=== PATIENT | male | born 1965 | race Caucasian/White ===

== ENCOUNTER 2018-01-24 20:14 | Inpatient (IN) | payer MEDICARE, OTHER ==
[2018-01-24] MEDS ORDERED: VANCOMYCIN IV PER PHARMACY XX (22:00)
[2018-01-24] MEDS ORDERED: oxyCODONE (CR) 10 MG TAB [oxyCONTIN] PO (22:00)
[2018-01-24] MEDS ORDERED: GLUCAGON 1 MG INJ IM (22:30)
[2018-01-24] MEDS ORDERED: DEXTROSE 50% 50 ML SYRINGE IV (22:30)
[2018-01-24] MEDS ORDERED: GLUCOSE GEL 15 GRAM TUBE PO ×2 (22:30)
[2018-01-24] MEDS ORDERED: GLUCOSE GEL 15 GRAM TUBE BUCCAL (22:30)
[2018-01-24] MEDS: MEROPENEM 1 GM/50ML(PMX) 50 ML IVPB (23:15)
[2018-01-24] MEDS: INSULIN ASPART [NOVOLOG] 3 ML PEN SC (23:21)
[2018-01-24 23:54] LABS: CREATININE 0.95 mg/dl (0.61-1.24)
[2018-01-24 23:54] LABS: BLOOD UREA NITROGEN 36 mg/dl (7-20)
[2018-01-25] MEDS: VANCOMYCIN 1.25 GM in SOD CHLORIDE 0.9% 250 ML IVPB (00:23)
[2018-01-25] MEDS: oxyCODONE 5 MG TAB PO ×4 (01:53→16:20)
[2018-01-25] MEDS: ACCU-CHEK XX (02:00)
[2018-01-25] MEDS: MEROPENEM 1 GM/50ML(PMX) 50 ML IVPB ×3 (05:36→21:06)
[2018-01-25 05:42] LABS: ADD MAN DIFF? NO
[2018-01-25 05:54] LABS: WHITE BLOOD COUNT 14.1 10^3/ul (4.8-10.8)
[2018-01-25 05:54] LABS: BASOPHILS % 0.1 % (0.0-2.0); HEMATOCRIT 25.8 % (42.0-52.0); HEMOGLOBIN 8.5 g/dl (14.0-18.0); LYMPHOCYTES % 14.4 % (15.0-51.0); MEAN CORPUSCULAR HEMOGLOBIN 24.9 pg (29.0-33.0); MEAN CORPUSCULAR HGB CONC 32.9 g/dl (32.0-37.0); MEAN CORPUSCULAR VOLUME 75.4 fl (82.0-101.0); MEAN PLATELET VOLUME 8.8 fl (7.4-10.4); MONOCYTE # 0.7 10^3/ul (0.3-0.9); MONOCYTES % 5.2 % (0.0-11.0); NEUTROPHIL # 11.3 10^3/ul (1.6-7.5); NEUTROPHILS % 79.7 % (39.0-77.0); PLATELET COUNT 439 10^3/UL (140-415); RED BLOOD COUNT 3.42 10^6/ul (4.70-6.10); RED CELL DISTRIBUTION WIDTH 16.4 % (11.5-14.5)
[2018-01-25 05:55] LABS: HEMOGLOBIN A1C 8.2 % (0-5.9)
[2018-01-25 05:59] LABS: ALANINE AMINOTRANSFERASE 19 IU/L (13-69); ALBUMIN 2.7 g/dl (3.3-4.9); ALBUMIN/GLOBULIN RATIO 0.58; ALKALINE PHOSPHATASE 112 IU/L (42-121); ANION GAP 13 (8-16); ASPARTATE AMINO TRANSFERASE 13 IU/L (15-46); BILIRUBIN,INDIRECT 0.1 mg/dl (0-1.1); BILIRUBIN,TOTAL 0.1 mg/dl (0.2-1.3); BLOOD UREA NITROGEN 35 mg/dl (7-20); CALCIUM 8.6 mg/dl (8.4-10.2); CARBON DIOXIDE 28 mmol/L (21-31); CHLORIDE 97 mmol/L (97-110); CREATININE 0.96 mg/dl (0.61-1.24); GLUCOSE 193 mg/dl (70-220); POTASSIUM 4.8 mmol/L (3.5-5.1); SODIUM 133 mmol/L (135-144); TOTAL PROTEIN 7.3 g/dl (6.1-8.1)
[2018-01-25 06:05] LABS: INR 1.15; PROTIME 14.9 Sec (11.9-14.9); PT RATIO 1.2
[2018-01-25] MEDS: INSULIN ASPART [NOVOLOG] 3 ML PEN SC ×4 (08:44→21:00)
[2018-01-25] MEDS ORDERED: SOD CHLORIDE 0.45% 1,000 ML IV (11:30)
[2018-01-25] MEDS ORDERED: VANCOMYCIN 750 MG in SOD CHLORIDE 0.9% 150 ML IVPB (12:00)
[2018-01-25] MEDS: SOD CHLORIDE 0.9% 1,000 ML IV (12:12)
[2018-01-25] MEDS: ENOXAPARIN 40 MG/0.4 ML SYG SC (12:21)
[2018-01-25] MEDS: VANCOMYCIN 1 GM 250 ML IVPB ×2 (12:37→23:35)
[2018-01-25] MEDS: LEVALBUTEROL (NEB) 0.63 MG/3 ML AMP HHN ×2 (16:07→23:39)
[2018-01-25] MEDS: metFORMIN 500 MG TAB PO (19:30)
[2018-01-25] MEDS: ONDANSETRON 4 MG INJ IV (21:06)
[2018-01-25 23:15] LABS: ADD UMIC YES; UR ASCORBIC ACID NEGATIVE (NEGATIVE); UR BILIRUBIN (Dip) NEGATIVE (NEGATIVE); UR BLOOD (Dip) 2+ mg/dL (NEGATIVE); UR CLARITY CLEAR (CLEAR); UR COLOR YELLOW (YELLOW); UR GLUCOSE (Dip) NEGATIVE (NEGATIVE); UR KETONES (Dip) NEGATIVE (NEGATIVE); UR LEUKOCYTE ESTERASE (Dip) 1+ Leu/ul (NEGATIVE); UR MUCUS FEW /HPF (NONE SEEN); UR NITRITE (Dip) NEGATIVE (NEGATIVE); UR RBC 18 /HPF (0-5); UR SPECIFIC GRAVITY (Dip) 1.019 (1.003-1.030); UR TOTAL PROTEIN (Dip) NEGATIVE (NEGATIVE); UR UROBILINOGEN (Dip) 1+ mg/dL (NEGATIVE); UR WBC 25 /HPF (0-5)
[2018-01-26] MEDS: ACCU-CHEK XX (01:00)
[2018-01-26] MEDS: oxyCODONE 5 MG TAB PO ×2 (01:40→09:18)
[2018-01-26] MEDS: SOD CHLORIDE 0.9% 1,000 ML IV ×3 (04:10→20:32)
[2018-01-26] MEDS: MEROPENEM 1 GM/50ML(PMX) 50 ML IVPB ×3 (05:06→22:15)
[2018-01-26 06:12] LABS: ADD MAN DIFF? NO; HAAIG REFLEX REFLEX FILED
[2018-01-26 06:20] LABS: EOSINOPHILS % 0.2 % (0.0-7.0); HEMATOCRIT 26.2 % (42.0-52.0); HEMOGLOBIN 8.6 g/dl (14.0-18.0); LYMPHOCYTES # 2.1 10^3/ul (0.8-2.9); LYMPHOCYTES % 17.4 % (15.0-51.0); MEAN CORPUSCULAR HEMOGLOBIN 24.6 pg (29.0-33.0); MEAN CORPUSCULAR HGB CONC 32.8 g/dl (32.0-37.0); MEAN CORPUSCULAR VOLUME 75.1 fl (82.0-101.0); MEAN PLATELET VOLUME 8.8 fl (7.4-10.4); MONOCYTE # 0.9 10^3/ul (0.3-0.9); MONOCYTES % 7.2 % (0.0-11.0); NEUTROPHIL # 9.1 10^3/ul (1.6-7.5); NEUTROPHILS % 74.7 % (39.0-77.0); PLATELET COUNT 371 10^3/UL (140-415); RED BLOOD COUNT 3.49 10^6/ul (4.70-6.10); RED CELL DISTRIBUTION WIDTH 16.3 % (11.5-14.5)
[2018-01-26 06:20] LABS: WHITE BLOOD COUNT 12.1 10^3/ul (4.8-10.8)
[2018-01-26 07:13] LABS: ALANINE AMINOTRANSFERASE 26 IU/L (13-69); ALBUMIN 2.7 g/dl (3.3-4.9); ALKALINE PHOSPHATASE 130 IU/L (42-121); ASPARTATE AMINO TRANSFERASE 24 IU/L (15-46); BILIRUBIN,INDIRECT 0.2 mg/dl (0-1.1); BILIRUBIN,TOTAL 0.2 mg/dl (0.2-1.3); TOTAL PROTEIN 7.3 g/dl (6.1-8.1)
[2018-01-26 07:18] LABS: ALANINE AMINOTRANSFERASE 26 IU/L (13-69); ALBUMIN 2.7 g/dl (3.3-4.9); ALBUMIN/GLOBULIN RATIO 0.58; ALKALINE PHOSPHATASE 119 IU/L (42-121); ANION GAP 14 (8-16); ASPARTATE AMINO TRANSFERASE 22 IU/L (15-46); BILIRUBIN,INDIRECT 0.2 mg/dl (0-1.1); BILIRUBIN,TOTAL 0.2 mg/dl (0.2-1.3); BLOOD UREA NITROGEN 32 mg/dl (7-20); CALCIUM 8.4 mg/dl (8.4-10.2); CARBON DIOXIDE 26 mmol/L (21-31); CHLORIDE 94 mmol/L (97-110); CHOL/HDL RATIO 7.9 RATIO; CHOLESTEROL 127 mg/dl (100-200); CREATININE 0.94 mg/dl (0.61-1.24); GLUCOSE 61 mg/dl (70-220); HDL CHOLESTEROL 16 mg/dl (28-71); LDL CHOLESTEROL,CALCULATED 90 mg/dl; LIPASE 68 U/L (23-300); POTASSIUM 4.6 mmol/L (3.5-5.1); SODIUM 129 mmol/L (135-144); TOTAL PROTEIN 7.3 g/dl (6.1-8.1); TRIGLYCERIDES 107 mg/dl (0-149)
[2018-01-26 07:39] LABS: HEPATITIS B SURFACE ANTIGEN NEGATIVE (NEGATIVE)
[2018-01-26 07:57] LABS: HEPATITIS B CORE ANTIBODY REACTIVE (NEGATIVE)
[2018-01-26 08:01] LABS: HEPATITIS C VIRAL ANTIBODY REACTIVE (NEGATIVE); HIV 1&2 ANTIBODY NEGATIVE (NEGATIVE)
[2018-01-26] MEDS: metFORMIN 500 MG TAB PO ×2 (08:05→17:23)
[2018-01-26] MEDS: LEVALBUTEROL (NEB) 0.63 MG/3 ML AMP HHN ×3 (08:10→23:12)
[2018-01-26] MEDS: INSULIN ASPART [NOVOLOG] 3 ML PEN SC ×4 (08:15→20:32)
[2018-01-26] MEDS: INSULIN GLARGINE [LANtus] 3 ML PEN SC (08:26)
[2018-01-26] MEDS: ENOXAPARIN 40 MG/0.4 ML SYG SC (08:26)
[2018-01-26 08:53] LABS: ERYTHROCYTE SEDIMENTATION RATE 103 mm/Hr (0-20)
[2018-01-26] MEDS: ONDANSETRON 4 MG INJ IV (09:49)
[2018-01-26] MEDS: METHADONE (1 MG/1 ML PO SYG) PO (10:37)
[2018-01-26] MEDS: VANCOMYCIN 1 GM 250 ML IVPB (12:00)
[2018-01-27] MEDS: VANCOMYCIN 1.25 GM in SOD CHLORIDE 0.9% 250 ML IVPB ×2 (00:24→11:48)
[2018-01-27] MEDS: DEXTROSE 5%-0.45% NACL 1,000 ML IV ×2 (00:24→13:20)
[2018-01-27] MEDS: ACCU-CHEK XX (01:55)
[2018-01-27] MEDS: HYDROmorphONE 1 MG/ML SYG IV ×6 (04:02→22:02)
[2018-01-27] MEDS: MEROPENEM 1 GM/50ML(PMX) 50 ML IVPB ×3 (05:23→23:50)
[2018-01-27 06:20] LABS: ADD MAN DIFF? NO
[2018-01-27 06:29] LABS: BASOPHILS % 0.1 % (0.0-2.0); EOSINOPHILS # 0.1 10^3/ul (0.0-0.5); EOSINOPHILS % 0.9 % (0.0-7.0); HEMATOCRIT 27.9 % (42.0-52.0); HEMOGLOBIN 9.1 g/dl (14.0-18.0); LYMPHOCYTES # 2.3 10^3/ul (0.8-2.9); LYMPHOCYTES % 20.8 % (15.0-51.0); MEAN CORPUSCULAR HEMOGLOBIN 24.6 pg (29.0-33.0); MEAN CORPUSCULAR HGB CONC 32.6 g/dl (32.0-37.0); MEAN CORPUSCULAR VOLUME 75.4 fl (82.0-101.0); MEAN PLATELET VOLUME 8.5 fl (7.4-10.4); MONOCYTES % 9.2 % (0.0-11.0); NEUTROPHIL # 7.4 10^3/ul (1.6-7.5); NEUTROPHILS % 68.2 % (39.0-77.0); PLATELET COUNT 426 10^3/UL (140-415); RED CELL DISTRIBUTION WIDTH 15.9 % (11.5-14.5)
[2018-01-27 06:29] LABS: WHITE BLOOD COUNT 10.9 10^3/ul (4.8-10.8)
[2018-01-27 06:47] LABS: INR 1.09; PROTIME 14.2 Sec (11.9-14.9); PT RATIO 1.1
[2018-01-27 06:52] LABS: ANION GAP 14 (8-16); BLOOD UREA NITROGEN 28 mg/dl (7-20); CALCIUM 8.6 mg/dl (8.4-10.2); CARBON DIOXIDE 27 mmol/L (21-31); CHLORIDE 94 mmol/L (97-110); GLUCOSE 76 mg/dl (70-220); POTASSIUM 4.1 mmol/L (3.5-5.1); SODIUM 131 mmol/L (135-144)
[2018-01-27] MEDS ORDERED: PHENYLephrine (100 MCG/ML) 10ML SYG (07:00)
[2018-01-27 07:54] LABS: HEPATITIS B SURFACE ANTIBODY POSITIVE (NEGATIVE)
[2018-01-27] MEDS: LEVALBUTEROL (NEB) 0.63 MG/3 ML AMP HHN ×2 (07:57→17:04)
[2018-01-27] MEDS: metFORMIN 500 MG TAB PO ×2 (08:05→17:50)
[2018-01-27] MEDS: METHADONE (1 MG/1 ML PO SYG) PO (09:00)
[2018-01-27] MEDS: LINAGLIPTIN 5 MG TABLET PO (09:00)
[2018-01-27] MEDS: ENOXAPARIN 40 MG/0.4 ML SYG SC (09:00)
[2018-01-27] MEDS: INSULIN ASPART [NOVOLOG] 3 ML PEN SC ×4 (09:56→21:00)
[2018-01-27] MEDS ORDERED: ROPIVACAINE 0.5 % 30 ML VIAL (14:18)
[2018-01-27] MEDS: ONDANSETRON 4 MG INJ IV (16:02)
[2018-01-27] MEDS ORDERED: PROPOFOL 20 ML (17:54)
[2018-01-27] MEDS ORDERED: ROCURONIUM 50 MG INJ ×2 (17:54→21:03)
[2018-01-27] MEDS ORDERED: CEFAZOLIN 1 GM INJ (17:54)
[2018-01-27] MEDS ORDERED: MIDAZOLAM 1 MG/ML 2 ML INJ (17:55)
[2018-01-27] MEDS ORDERED: HYDROmorphONE 2 MG/ML SYG (17:55)
[2018-01-27] MEDS ORDERED: SUCCINYLCHOLINE CHLORIDE 100 MG/5 ML SYG IV (18:24)
[2018-01-27] MEDS: THROMBIN 5000 UNIT VIAL ×2 (19:41→19:42)
[2018-01-27] MEDS: GELATIN SIZE 100 SPONGE (19:41)
[2018-01-27] MEDS: HEMOSTATIC MATRIX SYG ZFS (19:42)
[2018-01-27] MEDS: POLYMYXIN/BACITRACIN 1L IRRIG (19:42)
[2018-01-27] MEDS ORDERED: ALBUMIN HUMAN 5% 500 ML (20:29)
[2018-01-27] MEDS ORDERED: ACETAMINOPHEN 1000MG/100ML IV 100 ML (20:30)
[2018-01-27] MEDS ORDERED: METOCLOPRAMIDE 10 MG INJ (20:30)
[2018-01-27] MEDS ORDERED: DEXAMETHASONE 4 MG/ML 1 ML INJ (20:30)
[2018-01-27] MEDS ORDERED: ONDANSETRON 4 MG INJ (20:30)
[2018-01-27] MEDS ORDERED: SUGAMMADEX SODIUM 200 MG/2 ML VIAL IV (21:03)
[2018-01-27] MEDS: ROPIVACAINE 0.5 % 30 ML VIAL ×2 (21:25)
[2018-01-27] MEDS ORDERED: NALOXONE (0.4 MG/ML) INJ IV (21:30)
[2018-01-27] MEDS ORDERED: NACL 0.9% 3 ML SYG IV (21:30)
[2018-01-27] MEDS ORDERED: EPHEDrine SULFATE 50 MG/5 ML SYG IV (21:30)
[2018-01-27] MEDS ORDERED: ONDANSETRON 4 MG INJ IV (21:30)
[2018-01-27] MEDS ORDERED: MEPERIDINE 25 MG INJ IV (21:30)
[2018-01-27] MEDS ORDERED: LABETALOL HCL 20MG INJ IV (21:30)
[2018-01-27] MEDS ORDERED: HYDROmorphONE 1 MG/5 ML IV SYRINGE IV ×3 (21:30)
[2018-01-27] MEDS ORDERED: hydrALAzine 20 MG INJ IV (21:30)
[2018-01-27] MEDS: DOCUSATE SODIUM 100 MG CAP PO (21:30)
[2018-01-27] MEDS ORDERED: ALBUMIN HUMAN 5% 250 ML IV (21:30)
[2018-01-27] MEDS ORDERED: METOCLOPRAMIDE 10 MG INJ IV (21:30)
[2018-01-27] MEDS ORDERED: FENTAnyl 50 MCG/ML VIAL IV ×3 (21:30)
[2018-01-28] MEDS: VANCOMYCIN 1.25 GM in SOD CHLORIDE 0.9% 250 ML IVPB ×2 (00:13→14:15)
[2018-01-28] MEDS: DIPHENHYDRAMINE 50 MG INJ IV (00:13)
[2018-01-28] MEDS: LEVALBUTEROL (NEB) 0.63 MG/3 ML AMP HHN ×4 (00:40→21:34)
[2018-01-28] MEDS ORDERED: ACCU-CHEK XX (02:00)
[2018-01-28] MEDS: NS + KCL 20 MEQ 1,000 ML IV ×4 (02:27→19:09)
[2018-01-28] MEDS: INSULIN ASPART [NOVOLOG] 3 ML PEN SC ×7 (02:35→20:28)
[2018-01-28] MEDS: ACCU-CHEK XX (02:36)
[2018-01-28] MEDS: MEROPENEM 1 GM/50ML(PMX) 50 ML IVPB ×3 (05:11→21:23)
[2018-01-28 05:52] LABS: HEMATOCRIT 24.8 % (42.0-52.0); HEMOGLOBIN 8.1 g/dl (14.0-18.0)
[2018-01-28 06:32] LABS: ANION GAP 13 (8-16); BLOOD UREA NITROGEN 27 mg/dl (7-20); CARBON DIOXIDE 26 mmol/L (21-31); CHLORIDE 98 mmol/L (97-110); CREATININE 0.74 mg/dl (0.61-1.24); GLUCOSE 240 mg/dl (70-220); POTASSIUM 4.6 mmol/L (3.5-5.1); SODIUM 132 mmol/L (135-144)
[2018-01-28 07:22] LABS: HEPATITIS B CORE ANTIBODY REACTIVE (NEGATIVE); HEPATITIS B SURFACE ANTIBODY POSITIVE (NEGATIVE)
[2018-01-28] MEDS: DOCUSATE SODIUM 100 MG CAP PO ×2 (08:24→20:23)
[2018-01-28] MEDS: ENOXAPARIN 40 MG/0.4 ML SYG SC (08:27)
[2018-01-28] MEDS: LINAGLIPTIN 5 MG TABLET PO (08:42)
[2018-01-28] MEDS: metFORMIN 500 MG TAB PO ×3 (08:42→17:55)
[2018-01-28] MEDS: METHADONE (1 MG/1 ML PO SYG) PO (09:33)
[2018-01-28 13:56] LABS: NIL 0.03 IU/mL; QUANTIFERON(R)-TB GOLD NEGATIVE (NEGATIVE); TB-NIL 0.01 IU/mL
[2018-01-28 18:53] LABS: HEMATOCRIT 25.8 % (42.0-52.0); HEMOGLOBIN 8.4 g/dl (14.0-18.0)
[2018-01-28] MEDS: HYDROmorphONE 0.2 MG/ML PCA IV (19:42)
[2018-01-29] MEDS: VANCOMYCIN 1.25 GM in SOD CHLORIDE 0.9% 250 ML IVPB ×2 (01:44→12:25)
[2018-01-29] MEDS: ACCU-CHEK XX (01:50)
[2018-01-29] MEDS: LEVALBUTEROL (NEB) 0.63 MG/3 ML AMP HHN ×3 (02:01→15:45)
[2018-01-29 05:10] LABS: ADD MAN DIFF? NO
[2018-01-29 05:21] LABS: WHITE BLOOD COUNT 11.1 10^3/ul (4.8-10.8)
[2018-01-29 05:21] LABS: BASOPHILS % 0.1 % (0.0-2.0); EOSINOPHILS # 0.1 10^3/ul (0.0-0.5); EOSINOPHILS % 1.1 % (0.0-7.0); HEMATOCRIT 24.7 % (42.0-52.0); HEMOGLOBIN 8.1 g/dl (14.0-18.0); LYMPHOCYTES # 2.3 10^3/ul (0.8-2.9); LYMPHOCYTES % 20.4 % (15.0-51.0); MEAN CORPUSCULAR HEMOGLOBIN 24.6 pg (29.0-33.0); MEAN CORPUSCULAR HGB CONC 32.8 g/dl (32.0-37.0); MEAN CORPUSCULAR VOLUME 75.1 fl (82.0-101.0); MEAN PLATELET VOLUME 9.1 fl (7.4-10.4); MONOCYTE # 0.8 10^3/ul (0.3-0.9); MONOCYTES % 7.1 % (0.0-11.0); NEUTROPHIL # 7.8 10^3/ul (1.6-7.5); NEUTROPHILS % 69.8 % (39.0-77.0); PLATELET COUNT 301 10^3/UL (140-415); RED BLOOD COUNT 3.29 10^6/ul (4.70-6.10); RED CELL DISTRIBUTION WIDTH 16.2 % (11.5-14.5)
[2018-01-29] MEDS: MEROPENEM 1 GM/50ML(PMX) 50 ML IVPB ×3 (05:28→21:56)
[2018-01-29 05:41] LABS: ANION GAP 11 (8-16); BLOOD UREA NITROGEN 24 mg/dl (7-20); CALCIUM 7.4 mg/dl (8.4-10.2); CARBON DIOXIDE 27 mmol/L (21-31); CHLORIDE 92 mmol/L (97-110); CREATININE 0.57 mg/dl (0.61-1.24); GLUCOSE 186 mg/dl (70-220); POTASSIUM 4.4 mmol/L (3.5-5.1); SODIUM 126 mmol/L (135-144)
[2018-01-29] MEDS: INSULIN ASPART [NOVOLOG] 3 ML PEN SC ×4 (08:37→20:44)
[2018-01-29] MEDS: LINAGLIPTIN 5 MG TABLET PO (08:38)
[2018-01-29] MEDS: DOCUSATE SODIUM 100 MG CAP PO ×2 (08:38→20:45)
[2018-01-29] MEDS: metFORMIN 500 MG TAB PO ×2 (08:38→18:19)
[2018-01-29] MEDS: ENOXAPARIN 40 MG/0.4 ML SYG SC (08:38)
[2018-01-29] MEDS: HYDROmorphONE 0.2 MG/ML PCA IV (08:43)
[2018-01-29] MEDS: NS + KCL 20 MEQ 1,000 ML IV ×2 (08:49→21:56)
[2018-01-29] MEDS: METHADONE (1 MG/ML 5 ML PO UD SYG) PO (09:30)
[2018-01-29] MEDS: ACETAMINOPHEN 325 MG TAB PO (11:01)
[2018-01-30] MEDS: VANCOMYCIN 1.25 GM in SOD CHLORIDE 0.9% 250 ML IVPB ×2 (00:07→12:36)
[2018-01-30] MEDS: ACCU-CHEK XX (02:00)
[2018-01-30] MEDS: MEROPENEM 1 GM/50ML(PMX) 50 ML IVPB ×3 (05:07→21:45)
[2018-01-30] MEDS: INSULIN ASPART [NOVOLOG] 3 ML PEN SC ×4 (07:50→21:00)
[2018-01-30] MEDS: metFORMIN 500 MG TAB PO ×2 (07:50→18:40)
[2018-01-30] MEDS: ENOXAPARIN 40 MG/0.4 ML SYG SC (09:00)
[2018-01-30] MEDS: LINAGLIPTIN 5 MG TABLET PO (09:00)
[2018-01-30] MEDS: DOCUSATE SODIUM 100 MG CAP PO ×2 (09:00→21:00)
[2018-01-30] MEDS: METHADONE (1 MG/ML 5 ML PO UD SYG) PO (09:04)
[2018-01-30] MEDS: NS + KCL 20 MEQ 1,000 ML IV ×2 (12:31→19:30)
[2018-01-30] MEDS: HYDROmorphONE 0.2 MG/ML PCA IV (20:24)
[2018-01-31] MEDS: VANCOMYCIN 1.25 GM in SOD CHLORIDE 0.9% 250 ML IVPB ×2 (00:06→14:36)
[2018-01-31] MEDS: ACCU-CHEK XX (01:30)
[2018-01-31] MEDS: LEVALBUTEROL (NEB) 0.63 MG/3 ML AMP HHN (03:35)
[2018-01-31] MEDS: MEROPENEM 1 GM/50ML(PMX) 50 ML IVPB ×3 (05:27→22:08)
[2018-01-31] MEDS: NS + KCL 20 MEQ 1,000 ML IV ×3 (05:27→20:15)
[2018-01-31 05:41] LABS: CREATININE 0.62 mg/dl (0.61-1.24)
[2018-01-31 05:41] LABS: BLOOD UREA NITROGEN 22 mg/dl (7-20)
[2018-01-31] MEDS: INSULIN ASPART [NOVOLOG] 3 ML PEN SC ×4 (07:50→20:14)
[2018-01-31] MEDS: metFORMIN 500 MG TAB PO ×2 (10:07→17:55)
[2018-01-31] MEDS: DOCUSATE SODIUM 100 MG CAP PO ×2 (10:07→20:14)
[2018-01-31] MEDS: METHADONE (1 MG/ML 5 ML PO UD SYG) PO (10:35)
[2018-01-31] MEDS: ENOXAPARIN 40 MG/0.4 ML SYG SC (10:43)
[2018-01-31] MEDS: HYDROmorphONE 0.2 MG/ML PCA IV (14:27)
[2018-01-31] MEDS ORDERED: morphine 2 MG INJ IV (15:00)
[2018-01-31] MEDS: HYDROmorphONE 1 MG/ML SYG IV (20:16)
[2018-02-01 01:58] LABS: VANCOMYCIN,TROUGH 14.6 ug/ml (10.0-20.0)
[2018-02-01] MEDS: ACCU-CHEK XX (02:00)
[2018-02-01] MEDS: VANCOMYCIN 1.25 GM in SOD CHLORIDE 0.9% 250 ML IVPB ×2 (02:28→14:01)
[2018-02-01] MEDS: HYDROmorphONE 1 MG/ML SYG IV ×6 (02:32→23:40)
[2018-02-01] MEDS: MEROPENEM 1 GM/50ML(PMX) 50 ML IVPB ×3 (05:34→21:47)
[2018-02-01] MEDS: metFORMIN 500 MG TAB PO ×2 (07:50→17:51)
[2018-02-01] MEDS: INSULIN ASPART [NOVOLOG] 3 ML PEN SC ×4 (07:50→21:40)
[2018-02-01] MEDS: METHADONE (1 MG/ML 5 ML PO UD SYG) PO ×2 (08:51→11:50)
[2018-02-01] MEDS: DOCUSATE SODIUM 100 MG CAP PO ×2 (08:58→21:36)
[2018-02-01] MEDS: ENOXAPARIN 40 MG/0.4 ML SYG SC (08:58)
[2018-02-01] MEDS: NS + KCL 20 MEQ 1,000 ML IV ×3 (09:51→23:39)
[2018-02-01] MEDS: morphine LIQ (10 MG/5 ML) CUP PO (21:47)
[2018-02-02] MEDS: morphine LIQ (10 MG/5 ML) CUP PO (01:55)
[2018-02-02] MEDS: VANCOMYCIN 1.25 GM in SOD CHLORIDE 0.9% 250 ML IVPB ×2 (01:55→14:20)
[2018-02-02] MEDS: ACCU-CHEK XX ×2 (02:00→23:36)
[2018-02-02] MEDS: HYDROmorphONE 1 MG/ML SYG IV ×5 (04:38→22:21)
[2018-02-02] MEDS: MEROPENEM 1 GM/50ML(PMX) 50 ML IVPB ×3 (06:10→22:21)
[2018-02-02] MEDS: NS + KCL 20 MEQ 1,000 ML IV ×2 (07:30→14:07)
[2018-02-02] MEDS: INSULIN ASPART [NOVOLOG] 3 ML PEN SC ×4 (07:50→20:33)
[2018-02-02] MEDS: ENOXAPARIN 40 MG/0.4 ML SYG SC (08:00)
[2018-02-02] MEDS: metFORMIN 500 MG TAB PO ×2 (08:01→18:13)
[2018-02-02] MEDS: DOCUSATE SODIUM 100 MG CAP PO ×2 (08:01→20:34)
[2018-02-02] MEDS: METHADONE (1 MG/ML 5 ML PO UD SYG) PO (08:03)
[2018-02-02] MEDS: LEVALBUTEROL (NEB) 0.63 MG/3 ML AMP HHN (09:50)
[2018-02-03] MEDS: NS + KCL 20 MEQ 1,000 ML IV ×3 (02:08→23:30)
[2018-02-03] MEDS: VANCOMYCIN 1.25 GM in SOD CHLORIDE 0.9% 250 ML IVPB ×2 (02:09→14:55)
[2018-02-03] MEDS: HYDROmorphONE 1 MG/ML SYG IV ×4 (03:10→17:54)
[2018-02-03] MEDS: MEROPENEM 1 GM/50ML(PMX) 50 ML IVPB ×3 (06:21→21:51)
[2018-02-03] MEDS: INSULIN ASPART [NOVOLOG] 3 ML PEN SC ×4 (07:50→21:00)
[2018-02-03] MEDS: DOCUSATE SODIUM 100 MG CAP PO ×2 (08:21→20:34)
[2018-02-03] MEDS: metFORMIN 500 MG TAB PO ×2 (08:21→17:55)
[2018-02-03] MEDS: ENOXAPARIN 40 MG/0.4 ML SYG SC (08:26)
[2018-02-03] MEDS: LEVALBUTEROL (NEB) 0.63 MG/3 ML AMP HHN (08:59)
[2018-02-03] MEDS: METHADONE (1 MG/ML 5 ML PO UD SYG) PO (09:21)
[2018-02-03] MEDS: morphine LIQ (10 MG/5 ML) CUP PO (20:33)
[2018-02-04] MEDS: ACCU-CHEK XX (00:50)
[2018-02-04] MEDS: NS + KCL 20 MEQ 1,000 ML IV ×2 (01:20→08:06)
[2018-02-04] MEDS: VANCOMYCIN 1.25 GM in SOD CHLORIDE 0.9% 250 ML IVPB ×2 (02:53→15:16)
[2018-02-04 05:08] LABS: ADD MAN DIFF? NO
[2018-02-04 05:11] LABS: BASOPHILS % 0.3 % (0.0-2.0); EOSINOPHILS # 0.3 10^3/ul (0.0-0.5); HEMATOCRIT 24.3 % (42.0-52.0); HEMOGLOBIN 7.7 g/dl (14.0-18.0); LYMPHOCYTES # 2.7 10^3/ul (0.8-2.9); LYMPHOCYTES % 30.8 % (15.0-51.0); MEAN CORPUSCULAR HEMOGLOBIN 24.5 pg (29.0-33.0); MEAN CORPUSCULAR HGB CONC 31.7 g/dl (32.0-37.0); MEAN CORPUSCULAR VOLUME 77.4 fl (82.0-101.0); MEAN PLATELET VOLUME 8.2 fl (7.4-10.4); MONOCYTE # 0.7 10^3/ul (0.3-0.9); MONOCYTES % 8.4 % (0.0-11.0); PLATELET COUNT 344 10^3/UL (140-415); RED BLOOD COUNT 3.14 10^6/ul (4.70-6.10); RED CELL DISTRIBUTION WIDTH 17.7 % (11.5-14.5)
[2018-02-04 05:11] LABS: WHITE BLOOD COUNT 8.8 10^3/ul (4.8-10.8)
[2018-02-04 05:33] LABS: INR 1.14; PROTIME 14.8 Sec (11.9-14.9); PT RATIO 1.2
[2018-02-04 05:34] LABS: ANION GAP 6 (8-16); BLOOD UREA NITROGEN 21 mg/dl (7-20); CALCIUM 7.9 mg/dl (8.4-10.2); CARBON DIOXIDE 33 mmol/L (21-31); CHLORIDE 94 mmol/L (97-110); GLUCOSE 82 mg/dl (70-220); PARTIAL THROMBOPLASTIN TIME 36.2 Sec (25.0-35.0); POTASSIUM 4.6 mmol/L (3.5-5.1); SODIUM 128 mmol/L (135-144)
[2018-02-04] MEDS: MEROPENEM 1 GM/50ML(PMX) 50 ML IVPB ×3 (06:05→23:20)
[2018-02-04] MEDS ORDERED: ETOMIDATE 20 MG INJ (07:00)
[2018-02-04] MEDS: metFORMIN 500 MG TAB PO ×2 (07:50→17:55)
[2018-02-04] MEDS: INSULIN ASPART [NOVOLOG] 3 ML PEN SC ×4 (07:50→21:00)
[2018-02-04] MEDS: HYDROmorphONE 1 MG/ML SYG IV ×2 (08:04→23:39)
[2018-02-04] MEDS: ENOXAPARIN 40 MG/0.4 ML SYG SC (09:00)
[2018-02-04] MEDS: DOCUSATE SODIUM 100 MG CAP PO ×2 (09:00→21:00)
[2018-02-04] MEDS: NICOTINE (14 MG/24 HR) PATCH TRANSDERM (09:00)
[2018-02-04] MEDS: METHADONE (1 MG/ML 5 ML PO UD SYG) PO (09:06)
[2018-02-04 14:26] LABS: IMMEDIATE SPIN CROSSMATCH 1 4
[2018-02-04] MEDS: DEXTROSE 50% 50 ML SYRINGE IV (16:17)
[2018-02-04] MEDS: LEVALBUTEROL (NEB) 0.63 MG/3 ML AMP HHN (16:26)
[2018-02-04] MEDS ORDERED: GELATIN SIZE 100 SPONGE ×2 (17:19→17:28)
[2018-02-04] MEDS ORDERED: NEOSTIGMINE 3 MG/3 ML SYRINGE (17:25)
[2018-02-04] MEDS ORDERED: CEFAZOLIN 1 GM INJ (17:25)
[2018-02-04] MEDS ORDERED: PROPOFOL 20 ML (17:25)
[2018-02-04] MEDS ORDERED: ROCURONIUM 50 MG INJ (17:25)
[2018-02-04] MEDS ORDERED: GLYCOPYRROLATE 0.4 MG INJ (17:25)
[2018-02-04] MEDS ORDERED: ONDANSETRON 4 MG INJ (17:29)
[2018-02-04] MEDS ORDERED: MIDAZOLAM 1 MG/ML 2 ML INJ (17:29)
[2018-02-04] MEDS ORDERED: DEXAMETHASONE 4 MG/ML 1 ML INJ (17:29)
[2018-02-04] MEDS ORDERED: TRIMETHOBENZAMIDE 100 MG/ML VIAL IM (18:30)
[2018-02-04] MEDS ORDERED: hydrALAzine 20 MG INJ IV (18:30)
[2018-02-04] MEDS ORDERED: LABETALOL HCL 20MG INJ IV (18:30)
[2018-02-04] MEDS ORDERED: ALBUTEROL 0.083% (NEB) 2.5 MG/3 ML AMP HHN (18:30)
[2018-02-04] MEDS ORDERED: ONDANSETRON 4 MG INJ IV (18:30)
[2018-02-04] MEDS ORDERED: MIDAZOLAM 1 MG/ML 2 ML INJ IV (18:30)
[2018-02-04] MEDS ORDERED: OXYCODONE/ACETAMINOPHEN (5/325) TAB PO ×2 (18:30)
[2018-02-04] MEDS ORDERED: FENTAnyl 50 MCG/ML VIAL IV ×3 (18:30)
[2018-02-04] MEDS ORDERED: IPRATROPIUM (NEB) 0.5 MG/2.5 ML AMP HHN (18:30)
[2018-02-04] MEDS ORDERED: DIPHENHYDRAMINE 50 MG INJ IV (18:30)
[2018-02-04] MEDS ORDERED: EPHEDrine SULFATE 50 MG/5 ML SYG IV (18:30)
[2018-02-04] MEDS ORDERED: MEPERIDINE 25 MG INJ IV (18:30)
[2018-02-04] MEDS ORDERED: HYDROmorphONE 1 MG/5 ML IV SYRINGE IV ×3 (18:30)
[2018-02-04] MEDS: CEFAZOLIN 1 GM INJ (18:35)
[2018-02-04] MEDS: HEPARIN 1000 UNITS/ML 10 ML INJ (18:36)
[2018-02-04] MEDS: GELATIN SIZE 100 SPONGE (18:36)
[2018-02-04] MEDS: THROMBIN 5000 UNIT VIAL ×2 (18:36→19:03)
[2018-02-04] MEDS: SOD CHLORIDE 0.9% 250 ML IV* (21:55)
[2018-02-04 23:08] LABS: ADD MAN DIFF? NO
[2018-02-04 23:10] LABS: WHITE BLOOD COUNT 13.1 10^3/ul (4.8-10.8)
[2018-02-04 23:10] LABS: BASOPHILS % 0.2 % (0.0-2.0); EOSINOPHILS # 0.2 10^3/ul (0.0-0.5); EOSINOPHILS % 1.3 % (0.0-7.0); HEMATOCRIT 27.1 % (42.0-52.0); HEMOGLOBIN 8.8 g/dl (14.0-18.0); LYMPHOCYTES # 2.4 10^3/ul (0.8-2.9); LYMPHOCYTES % 18.2 % (15.0-51.0); MEAN CORPUSCULAR HEMOGLOBIN 25.7 pg (29.0-33.0); MEAN CORPUSCULAR HGB CONC 32.5 g/dl (32.0-37.0); MEAN CORPUSCULAR VOLUME 79.2 fl (82.0-101.0); MEAN PLATELET VOLUME 8.2 fl (7.4-10.4); MONOCYTE # 0.8 10^3/ul (0.3-0.9); MONOCYTES % 5.7 % (0.0-11.0); NEUTROPHIL # 9.7 10^3/ul (1.6-7.5); NEUTROPHILS % 74.1 % (39.0-77.0); PLATELET COUNT 323 10^3/UL (140-415); RED BLOOD COUNT 3.42 10^6/ul (4.70-6.10); RED CELL DISTRIBUTION WIDTH 17.1 % (11.5-14.5)
[2018-02-04] MEDS: NORepinephrine 8MG/250 ML (PMX 250 ML IV (23:20)
[2018-02-04 23:32] LABS: ANION GAP 7 (8-16); BLOOD UREA NITROGEN 20 mg/dl (7-20); CALCIUM 7.3 mg/dl (8.4-10.2); CARBON DIOXIDE 28 mmol/L (21-31); CHLORIDE 102 mmol/L (97-110); CREATININE 0.55 mg/dl (0.61-1.24); GLUCOSE 77 mg/dl (70-220); POTASSIUM 4.3 mmol/L (3.5-5.1); SODIUM 133 mmol/L (135-144)
[2018-02-05 00:27] LABS: AADO2 Arterial 241.7 mmHg (7.0-24.0); Arterial Base Excess 1.8 mmol/L (-3.0-3); Arterial Blood Gas Oxygen Sat 91.8 mmHG (95.0-98.0); Arterial COHb 0.4 % (0.0-3.0); Arterial Fraction of Oxyhgb 91.2 % (93.0-99.0); Arterial HCO3 26.8 mmol/L (22.0-26.0); Arterial MetHb 0.3 % (0.0-1.5); Arterial Total Hemglobin 10.4 g/dl (12.0-18.0); Arterial pCO2 43.6 mmhg (35-45); MODE VENT - AC; Site A-Line
[2018-02-05] MEDS: FENTAnyl (DRIP) 1000 mcg/100mL 100 ML IV ×3 (00:50→21:53)
[2018-02-05] MEDS: ACCU-CHEK XX (01:42)
[2018-02-05 02:12] LABS: VANCOMYCIN,TROUGH 18.9 ug/ml (10.0-20.0)
[2018-02-05] MEDS: VANCOMYCIN 1 GM 250 ML IVPB ×2 (03:19→15:41)
[2018-02-05] MEDS: HYDROmorphONE 1 MG/ML SYG IV ×2 (05:04→10:40)
[2018-02-05 05:30] LABS: ADD MAN DIFF? NO
[2018-02-05 05:38] LABS: BASOPHILS % 0.2 % (0.0-2.0); EOSINOPHILS # 0.2 10^3/ul (0.0-0.5); EOSINOPHILS % 1.2 % (0.0-7.0); HEMATOCRIT 28.4 % (42.0-52.0); HEMOGLOBIN 9.2 g/dl (14.0-18.0); LYMPHOCYTES # 1.5 10^3/ul (0.8-2.9); LYMPHOCYTES % 9.6 % (15.0-51.0); MEAN CORPUSCULAR HEMOGLOBIN 25.4 pg (29.0-33.0); MEAN CORPUSCULAR HGB CONC 32.4 g/dl (32.0-37.0); MEAN CORPUSCULAR VOLUME 78.5 fl (82.0-101.0); MEAN PLATELET VOLUME 8.2 fl (7.4-10.4); MONOCYTE # 0.8 10^3/ul (0.3-0.9); MONOCYTES % 5.4 % (0.0-11.0); NEUTROPHIL # 12.7 10^3/ul (1.6-7.5); NEUTROPHILS % 82.9 % (39.0-77.0); PLATELET COUNT 351 10^3/UL (140-415); RED BLOOD COUNT 3.62 10^6/ul (4.70-6.10); RED CELL DISTRIBUTION WIDTH 17.1 % (11.5-14.5)
[2018-02-05 05:38] LABS: WHITE BLOOD COUNT 15.4 10^3/ul (4.8-10.8)
[2018-02-05] MEDS: NS + KCL 20 MEQ 1,000 ML IV ×2 (05:40→15:38)
[2018-02-05] MEDS: MEROPENEM 1 GM/50ML(PMX) 50 ML IVPB ×3 (06:01→21:43)
[2018-02-05 06:09] LABS: ANION GAP 8 (8-16); BLOOD UREA NITROGEN 19 mg/dl (7-20); CALCIUM 7.7 mg/dl (8.4-10.2); CARBON DIOXIDE 29 mmol/L (21-31); CHLORIDE 100 mmol/L (97-110); CREATININE 0.59 mg/dl (0.61-1.24); GLUCOSE 84 mg/dl (70-220); POTASSIUM 4.5 mmol/L (3.5-5.1); SODIUM 132 mmol/L (135-144)
[2018-02-05] MEDS: metFORMIN 500 MG TAB PO ×2 (07:35→17:13)
[2018-02-05] MEDS: INSULIN ASPART [NOVOLOG] 3 ML PEN SC ×4 (07:35→21:00)
[2018-02-05] MEDS: METHADONE (1 MG/ML 5 ML PO UD SYG) PO (09:00)
[2018-02-05] MEDS: DOCUSATE SODIUM 100 MG CAP PO ×2 (09:00→21:00)
[2018-02-05] MEDS: NICOTINE (14 MG/24 HR) PATCH TRANSDERM (09:14)
[2018-02-05] MEDS: ENOXAPARIN 40 MG/0.4 ML SYG SC (09:18)
[2018-02-05 13:18] LABS: AADO2 Arterial 128.3 mmHg (7.0-24.0); Arterial Base Excess 2.2 mmol/L (-3.0-3); Arterial Blood Gas Oxygen Sat 94.8 mmHG (95.0-98.0); Arterial COHb 0.6 % (0.0-3.0); Arterial Fraction of Oxyhgb 93.9 % (93.0-99.0); Arterial HCO3 30.1 mmol/L (22.0-26.0); Arterial MetHb 0.4 % (0.0-1.5); Arterial Total Hemglobin 11.2 g/dl (12.0-18.0); Arterial pCO2 64.3 mmhg (35-45); Blood Gas PS 10; MODE VENT - CPAP; Site A-Line
[2018-02-05] MEDS: NORepinephrine 8MG/250 ML (PMX 250 ML IV (18:11)
[2018-02-05] MEDS: ACETAMINOPHEN 325 MG SUPP PR (18:43)
[2018-02-06] MEDS: NS + KCL 20 MEQ 1,000 ML IV ×3 (01:15→20:33)
[2018-02-06] MEDS: ACCU-CHEK XX (01:16)
[2018-02-06] MEDS: VANCOMYCIN 1 GM 250 ML IVPB ×2 (03:16→15:13)
[2018-02-06] MEDS: ACETAMINOPHEN 325 MG SUPP PR (05:20)
[2018-02-06] MEDS: MEROPENEM 1 GM/50ML(PMX) 50 ML IVPB ×3 (06:11→21:31)
[2018-02-06 06:14] LABS: ADD MAN DIFF? NO
[2018-02-06 06:23] LABS: BASOPHILS % 0.2 % (0.0-2.0); HEMATOCRIT 24.7 % (42.0-52.0); HEMOGLOBIN 7.8 g/dl (14.0-18.0); LYMPHOCYTES # 1.9 10^3/ul (0.8-2.9); LYMPHOCYTES % 15.2 % (15.0-51.0); MEAN CORPUSCULAR HEMOGLOBIN 25.3 pg (29.0-33.0); MEAN CORPUSCULAR HGB CONC 31.6 g/dl (32.0-37.0); MEAN CORPUSCULAR VOLUME 80.2 fl (82.0-101.0); MEAN PLATELET VOLUME 8.4 fl (7.4-10.4); MONOCYTE # 0.9 10^3/ul (0.3-0.9); NEUTROPHIL # 9.5 10^3/ul (1.6-7.5); PLATELET COUNT 276 10^3/UL (140-415); RED BLOOD COUNT 3.08 10^6/ul (4.70-6.10); RED CELL DISTRIBUTION WIDTH 17.6 % (11.5-14.5)
[2018-02-06 06:23] LABS: WHITE BLOOD COUNT 12.3 10^3/ul (4.8-10.8)
[2018-02-06 06:52] LABS: ANION GAP 9 (8-16); BLOOD UREA NITROGEN 33 mg/dl (7-20); CALCIUM 7.7 mg/dl (8.4-10.2); CARBON DIOXIDE 28 mmol/L (21-31); CHLORIDE 103 mmol/L (97-110); CREATININE 0.73 mg/dl (0.61-1.24); GLUCOSE 112 mg/dl (70-220); MAGNESIUM 2.1 mg/dl (1.7-2.5); PHOSPHORUS 3.6 mg/dl (2.5-4.9); POTASSIUM 4.5 mmol/L (3.5-5.1); SODIUM 135 mmol/L (135-144)
[2018-02-06] MEDS: metFORMIN 500 MG TAB PO ×2 (07:35→10:55)
[2018-02-06 07:49] LABS: AADO2 Arterial 73.3 mmHg (7.0-24.0); Arterial Base Excess 1.6 mmol/L (-3.0-3); Arterial COHb 0.3 % (0.0-3.0); Arterial Fraction of Oxyhgb 98.6 % (93.0-99.0); Arterial HCO3 26.3 mmol/L (22.0-26.0); Arterial MetHb 0.1 % (0.0-1.5); Arterial Total Hemglobin 9.4 g/dl (12.0-18.0); Arterial pCO2 41.4 mmhg (35-45); MODE VENT - AC; Site A-Line
[2018-02-06] MEDS: INSULIN ASPART [NOVOLOG] 3 ML PEN SC ×4 (08:30→20:33)
[2018-02-06] MEDS: NICOTINE (14 MG/24 HR) PATCH TRANSDERM (10:52)
[2018-02-06] MEDS: ENOXAPARIN 40 MG/0.4 ML SYG SC (10:54)
[2018-02-06] MEDS: FENTAnyl (DRIP) 1000 mcg/100mL 100 ML IV (10:54)
[2018-02-06] MEDS: DOCUSATE SODIUM 100 MG CAP PO ×2 (10:55→20:33)
[2018-02-06] MEDS: METHADONE (1 MG/ML 5 ML PO UD SYG) PO (11:21)
[2018-02-06] MEDS: BALSAM PERU/CASTOR OIL 60 GM TUBE TOP (20:33)
[2018-02-07] MEDS: ACCU-CHEK XX (02:00)
[2018-02-07 02:47] LABS: VANCOMYCIN,TROUGH 18.1 ug/ml (10.0-20.0)
[2018-02-07] MEDS: VANCOMYCIN 1 GM 250 ML IVPB (02:51)
[2018-02-07 04:50] LABS: ADD MAN DIFF? NO
[2018-02-07 04:54] LABS: WHITE BLOOD COUNT 9.8 10^3/ul (4.8-10.8)
[2018-02-07 04:54] LABS: ABNORMAL IP MESSAGE 1; BASOPHILS % 0.1 % (0.0-2.0); EOSINOPHILS # 0.1 10^3/ul (0.0-0.5); EOSINOPHILS % 1.2 % (0.0-7.0); HEMATOCRIT 22.2 % (42.0-52.0); LYMPHOCYTES # 2.3 10^3/ul (0.8-2.9); LYMPHOCYTES % 23.7 % (15.0-51.0); MEAN CORPUSCULAR HEMOGLOBIN 25.1 pg (29.0-33.0); MEAN CORPUSCULAR HGB CONC 31.1 g/dl (32.0-37.0); MEAN CORPUSCULAR VOLUME 80.7 fl (82.0-101.0); MEAN PLATELET VOLUME 8.4 fl (7.4-10.4); MONOCYTE # 0.7 10^3/ul (0.3-0.9); MONOCYTES % 7.2 % (0.0-11.0); NEUTROPHIL # 6.6 10^3/ul (1.6-7.5); NEUTROPHILS % 67.4 % (39.0-77.0); PLATELET COUNT 230 10^3/UL (140-415); POSITIVE DIFF @See below; RED BLOOD COUNT 2.75 10^6/ul (4.70-6.10); RED CELL DISTRIBUTION WIDTH 17.9 % (11.5-14.5)
[2018-02-07 05:12] LABS: INR 1.15; PROTIME 14.9 Sec (11.9-14.9); PT RATIO 1.2
[2018-02-07 05:13] LABS: PARTIAL THROMBOPLASTIN TIME 38.7 Sec (25.0-35.0)
[2018-02-07 05:26] LABS: HEMOGLOBIN 6.9 g/dl (14.0-18.0)
[2018-02-07 05:34] LABS: ALANINE AMINOTRANSFERASE 30 IU/L (13-69); ALKALINE PHOSPHATASE 77 IU/L (42-121); ANION GAP 7 (8-16); ASPARTATE AMINO TRANSFERASE 35 IU/L (15-46); BILIRUBIN,INDIRECT 0.3 mg/dl (0-1.1); BILIRUBIN,TOTAL 0.3 mg/dl (0.2-1.3); BLOOD UREA NITROGEN 30 mg/dl (7-20); CALCIUM 7.8 mg/dl (8.4-10.2); CARBON DIOXIDE 29 mmol/L (21-31); CHLORIDE 107 mmol/L (97-110); CREATININE 0.68 mg/dl (0.61-1.24); GLUCOSE 62 mg/dl (70-220); POTASSIUM 4.1 mmol/L (3.5-5.1); SODIUM 139 mmol/L (135-144); TOTAL PROTEIN 5.5 g/dl (6.1-8.1)
[2018-02-07] MEDS: MEROPENEM 1 GM/50ML(PMX) 50 ML IVPB ×2 (06:12→14:41)
[2018-02-07] MEDS ORDERED: ROCURONIUM 50 MG INJ (07:00)
[2018-02-07] MEDS: metFORMIN 500 MG TAB PO ×2 (07:35→17:35)
[2018-02-07] MEDS: INSULIN ASPART [NOVOLOG] 3 ML PEN SC ×4 (07:35→20:13)
[2018-02-07] MEDS: DOCUSATE SODIUM 100 MG CAP PO ×2 (09:00→20:13)
[2018-02-07] MEDS: DEXTROSE 50% 50 ML SYRINGE IV ×2 (09:24→15:44)
[2018-02-07] MEDS: NICOTINE (14 MG/24 HR) PATCH TRANSDERM (09:25)
[2018-02-07] MEDS: BALSAM PERU/CASTOR OIL 60 GM TUBE TOP (09:25)
[2018-02-07] MEDS: ENOXAPARIN 40 MG/0.4 ML SYG SC (09:43)
[2018-02-07 11:24] LABS: IMMEDIATE SPIN CROSSMATCH 1 1
[2018-02-07] MEDS: ONDANSETRON 4 MG INJ IV (11:42)
[2018-02-07] MEDS: NS + KCL 20 MEQ 1,000 ML IV ×2 (11:44→17:30)
[2018-02-07] MEDS: METHADONE (1 MG/ML 5 ML PO UD SYG) PO (12:25)
[2018-02-07] MEDS: VANCOMYCIN 750 MG in SOD CHLORIDE 0.9% 150 ML IVPB (14:42)
[2018-02-07] MEDS ORDERED: THROMBIN 5000 UNIT VIAL (15:22)
[2018-02-07 15:42] LABS: ADD MAN DIFF? NO
[2018-02-07 15:45] LABS: BASOPHILS % 0.3 % (0.0-2.0); EOSINOPHILS # 0.2 10^3/ul (0.0-0.5); EOSINOPHILS % 1.9 % (0.0-7.0); HEMATOCRIT 25.3 % (42.0-52.0); HEMOGLOBIN 7.9 g/dl (14.0-18.0); LYMPHOCYTES # 2.1 10^3/ul (0.8-2.9); LYMPHOCYTES % 26.4 % (15.0-51.0); MEAN CORPUSCULAR HEMOGLOBIN 25.4 pg (29.0-33.0); MEAN CORPUSCULAR HGB CONC 31.2 g/dl (32.0-37.0); MEAN CORPUSCULAR VOLUME 81.4 fl (82.0-101.0); MEAN PLATELET VOLUME 8.1 fl (7.4-10.4); MONOCYTE # 0.6 10^3/ul (0.3-0.9); MONOCYTES % 7.9 % (0.0-11.0); PLATELET COUNT 200 10^3/UL (140-415); RED BLOOD COUNT 3.11 10^6/ul (4.70-6.10); RED CELL DISTRIBUTION WIDTH 17.4 % (11.5-14.5)
[2018-02-07] MEDS ORDERED: hydrALAzine 20 MG INJ IV (16:00)
[2018-02-07] MEDS ORDERED: ONDANSETRON 4 MG INJ IV (16:00)
[2018-02-07] MEDS ORDERED: FENTAnyl 50 MCG/ML VIAL IV ×3 (16:00)
[2018-02-07] MEDS ORDERED: HYDROmorphONE 0.5 MG/0.5 ML SYG IV ×3 (16:00)
[2018-02-07] MEDS ORDERED: EPHEDrine SULFATE 50 MG/5 ML SYG IV (16:00)
[2018-02-07] MEDS ORDERED: EPHEDrine 25 MG/5 ML SYG (16:26)
[2018-02-07] MEDS ORDERED: ALBUTEROL 0.083% (NEB) 2.5 MG/3 ML AMP (17:01)
[2018-02-07] MEDS: POLYMYXIN/BACITRACIN 1L IRRIG (17:43)
[2018-02-07] MEDS ORDERED: MIDAZOLAM 1 MG/ML 2 ML INJ (17:46)
[2018-02-07] MEDS ORDERED: hydrALAzine 20 MG INJ (17:50)
[2018-02-07] MEDS: ROPIVACAINE 0.5 % 30 ML VIAL (17:56)
[2018-02-07 19:20] LABS: ADD MAN DIFF? NO
[2018-02-07 19:22] LABS: BASOPHILS % 0.4 % (0.0-2.0); EOSINOPHILS # 0.2 10^3/ul (0.0-0.5); EOSINOPHILS % 2.7 % (0.0-7.0); HEMATOCRIT 24.9 % (42.0-52.0); HEMOGLOBIN 7.8 g/dl (14.0-18.0); LYMPHOCYTES # 2.4 10^3/ul (0.8-2.9); LYMPHOCYTES % 33.3 % (15.0-51.0); MEAN CORPUSCULAR HEMOGLOBIN 25.5 pg (29.0-33.0); MEAN CORPUSCULAR HGB CONC 31.3 g/dl (32.0-37.0); MEAN CORPUSCULAR VOLUME 81.4 fl (82.0-101.0); MEAN PLATELET VOLUME 8.4 fl (7.4-10.4); MONOCYTE # 0.5 10^3/ul (0.3-0.9); MONOCYTES % 6.2 % (0.0-11.0); NEUTROPHIL # 4.2 10^3/ul (1.6-7.5); NEUTROPHILS % 56.9 % (39.0-77.0); PLATELET COUNT 197 10^3/UL (140-415); RED BLOOD COUNT 3.06 10^6/ul (4.70-6.10); RED CELL DISTRIBUTION WIDTH 17.3 % (11.5-14.5)
[2018-02-07 19:22] LABS: WHITE BLOOD COUNT 7.3 10^3/ul (4.8-10.8)
[2018-02-07 19:40] LABS: ANION GAP 8 (8-16); BLOOD UREA NITROGEN 25 mg/dl (7-20); CALCIUM 7.6 mg/dl (8.4-10.2); CARBON DIOXIDE 26 mmol/L (21-31); CHLORIDE 106 mmol/L (97-110); CREATININE 0.52 mg/dl (0.61-1.24); GLUCOSE 144 mg/dl (70-220); POTASSIUM 3.3 mmol/L (3.5-5.1); SODIUM 137 mmol/L (135-144)
[2018-02-07] MEDS: DIPHENHYDRAMINE 50 MG INJ IV (20:12)
[2018-02-07] MEDS: HYDROmorphONE 1 MG/ML SYG IV (20:12)
[2018-02-07] MEDS: POTASSIUM CHLORIDE 50 ML IVPB ×2 (22:28→23:52)
[2018-02-08] MEDS: ACCU-CHEK XX (02:00)
[2018-02-08] MEDS: VANCOMYCIN 750 MG in SOD CHLORIDE 0.9% 150 ML IVPB ×2 (03:00→15:50)
[2018-02-08] MEDS: NS + KCL 20 MEQ 1,000 ML IV (03:30)
[2018-02-08 05:41] LABS: ALANINE AMINOTRANSFERASE 36 IU/L (13-69); ALBUMIN 2.1 g/dl (3.3-4.9); ALKALINE PHOSPHATASE 78 IU/L (42-121); ANION GAP 9 (8-16); ASPARTATE AMINO TRANSFERASE 36 IU/L (15-46); BILIRUBIN,INDIRECT 0.6 mg/dl (0-1.1); BILIRUBIN,TOTAL 0.6 mg/dl (0.2-1.3); BLOOD UREA NITROGEN 21 mg/dl (7-20); CALCIUM 7.6 mg/dl (8.4-10.2); CARBON DIOXIDE 30 mmol/L (21-31); CHLORIDE 103 mmol/L (97-110); CREATININE 0.54 mg/dl (0.61-1.24); GLUCOSE 56 mg/dl (70-220); POTASSIUM 4.6 mmol/L (3.5-5.1); SODIUM 137 mmol/L (135-144); TOTAL PROTEIN 5.8 g/dl (6.1-8.1)
[2018-02-08 05:42] LABS: ALBUMIN/GLOBULIN RATIO 0.56
[2018-02-08 07:18] LABS: ADD MAN DIFF? NO
[2018-02-08 07:21] LABS: WHITE BLOOD COUNT 7.7 10^3/ul (4.8-10.8)
[2018-02-08 07:21] LABS: BASOPHILS % 0.3 % (0.0-2.0); EOSINOPHILS # 0.3 10^3/ul (0.0-0.5); EOSINOPHILS % 4.2 % (0.0-7.0); HEMATOCRIT 25.6 % (42.0-52.0); MEAN CORPUSCULAR HEMOGLOBIN 25.6 pg (29.0-33.0); MEAN CORPUSCULAR HGB CONC 31.3 g/dl (32.0-37.0); MEAN CORPUSCULAR VOLUME 82.1 fl (82.0-101.0); MONOCYTE # 0.5 10^3/ul (0.3-0.9); NEUTROPHIL # 4.8 10^3/ul (1.6-7.5); NEUTROPHILS % 63.1 % (39.0-77.0); PLATELET COUNT 224 10^3/UL (140-415); RED BLOOD COUNT 3.12 10^6/ul (4.70-6.10); RED CELL DISTRIBUTION WIDTH 17.5 % (11.5-14.5)
[2018-02-08] MEDS: metFORMIN 500 MG TAB PO ×2 (07:35→17:27)
[2018-02-08] MEDS: INSULIN ASPART [NOVOLOG] 3 ML PEN SC ×4 (07:35→21:00)
[2018-02-08] MEDS: METHADONE (1 MG/ML 5 ML PO UD SYG) PO ×2 (09:00→11:30)
[2018-02-08] MEDS: NICOTINE (14 MG/24 HR) PATCH TRANSDERM (09:00)
[2018-02-08] MEDS: DOCUSATE SODIUM 100 MG CAP PO ×2 (09:00→21:00)
[2018-02-08] MEDS: DEXTROSE 5%-0.45% NACL 1,000 ML IV ×2 (09:00→22:20)
[2018-02-08] MEDS: BALSAM PERU/CASTOR OIL 60 GM TUBE TOP (09:00)
[2018-02-08] MEDS: ENOXAPARIN 40 MG/0.4 ML SYG SC (09:00)
[2018-02-08 11:29] LABS: AADO2 Arterial 65.8 mmHg (7.0-24.0); Allen Test ACCEPTAB; Arterial Blood Gas Oxygen Sat 97.3 mmHG (95.0-98.0); Arterial COHb 0.5 % (0.0-3.0); Arterial Fraction of Oxyhgb 96.6 % (93.0-99.0); Arterial HCO3 31.6 mmol/L (22.0-26.0); Arterial MetHb 0.2 % (0.0-1.5); Arterial Total Hemglobin 10.9 g/dl (12.0-18.0); Arterial pCO2 45.2 mmhg (35-45); Blood Gas PS 10; MODE VENT - CPAP; Site Right Radial
[2018-02-08] MEDS: HYDROmorphONE 1 MG/ML SYG IV ×2 (17:27→20:32)
[2018-02-08] MEDS: DEXTROSE 50% 50 ML SYRINGE IV (17:39)
[2018-02-09] MEDS: ACCU-CHEK XX (02:00)
[2018-02-09 04:53] LABS: WHITE BLOOD COUNT 7.3 10^3/ul (4.8-10.8)
[2018-02-09 04:53] LABS: ADD MAN DIFF? NO; BASOPHILS % 0.5 % (0.0-2.0); EOSINOPHILS # 0.4 10^3/ul (0.0-0.5); EOSINOPHILS % 5.6 % (0.0-7.0); HEMATOCRIT 27.5 % (42.0-52.0); HEMOGLOBIN 8.6 g/dl (14.0-18.0); LYMPHOCYTES # 2.5 10^3/ul (0.8-2.9); LYMPHOCYTES % 34.4 % (15.0-51.0); MEAN CORPUSCULAR HEMOGLOBIN 25.7 pg (29.0-33.0); MEAN CORPUSCULAR HGB CONC 31.3 g/dl (32.0-37.0); MEAN CORPUSCULAR VOLUME 82.3 fl (82.0-101.0); MEAN PLATELET VOLUME 8.6 fl (7.4-10.4); MONOCYTE # 0.5 10^3/ul (0.3-0.9); MONOCYTES % 6.5 % (0.0-11.0); NEUTROPHIL # 3.9 10^3/ul (1.6-7.5); NEUTROPHILS % 52.9 % (39.0-77.0); PLATELET COUNT 210 10^3/UL (140-415); RED BLOOD COUNT 3.34 10^6/ul (4.70-6.10); RED CELL DISTRIBUTION WIDTH 17.2 % (11.5-14.5)
[2018-02-09] MEDS: VANCOMYCIN 750 MG in SOD CHLORIDE 0.9% 150 ML IVPB ×3 (04:55→17:58)
[2018-02-09 05:09] LABS: MAGNESIUM 1.6 mg/dl (1.7-2.5)
[2018-02-09 05:09] LABS: PHOSPHORUS 2.5 mg/dl (2.5-4.9)
[2018-02-09 05:10] LABS: ALANINE AMINOTRANSFERASE 31 IU/L (13-69); ALBUMIN 2.2 g/dl (3.3-4.9); ALBUMIN/GLOBULIN RATIO 0.59; ALKALINE PHOSPHATASE 84 IU/L (42-121); ANION GAP 5 (8-16); ASPARTATE AMINO TRANSFERASE 33 IU/L (15-46); BILIRUBIN,INDIRECT 0.3 mg/dl (0-1.1); BILIRUBIN,TOTAL 0.3 mg/dl (0.2-1.3); BLOOD UREA NITROGEN 14 mg/dl (7-20); CALCIUM 7.7 mg/dl (8.4-10.2); CARBON DIOXIDE 35 mmol/L (21-31); CHLORIDE 98 mmol/L (97-110); CREATININE 0.56 mg/dl (0.61-1.24); GLUCOSE 89 mg/dl (70-220); POTASSIUM 3.7 mmol/L (3.5-5.1); SODIUM 134 mmol/L (135-144); TOTAL PROTEIN 5.9 g/dl (6.1-8.1)
[2018-02-09] MEDS: LEVALBUTEROL (NEB) 0.63 MG/3 ML AMP HHN ×2 (05:21→08:33)
[2018-02-09] MEDS: metFORMIN 500 MG TAB PO ×2 (07:35→17:35)
[2018-02-09] MEDS: INSULIN ASPART [NOVOLOG] 3 ML PEN SC ×4 (07:35→21:00)
[2018-02-09] MEDS: HYDROmorphONE 1 MG/ML SYG IV ×4 (07:59→23:40)
[2018-02-09] MEDS: DOCUSATE SODIUM 100 MG CAP PO ×2 (10:01→21:20)
[2018-02-09] MEDS: NICOTINE (14 MG/24 HR) PATCH TRANSDERM (10:01)
[2018-02-09] MEDS: BALSAM PERU/CASTOR OIL 60 GM TUBE TOP (10:02)
[2018-02-09] MEDS: METHADONE (1 MG/ML 5 ML PO UD SYG) PO (10:02)
[2018-02-09] MEDS: ENOXAPARIN 40 MG/0.4 ML SYG SC (10:04)
[2018-02-09] MEDS: morphine LIQ (10 MG/5 ML) CUP PO (11:25)
[2018-02-09] MEDS: DEXTROSE 5%-0.45% NACL 1,000 ML IV ×2 (11:40→16:09)
[2018-02-09 16:34] LABS: VANCOMYCIN,TROUGH 11.6 ug/ml (10.0-20.0)
[2018-02-09] MEDS: MAGNESIUM SULFATE 1 GM/D5W 100 ML IVPB (16:59)
[2018-02-10] MEDS: ACCU-CHEK XX (02:00)
[2018-02-10] MEDS: HYDROmorphONE 1 MG/ML SYG IV ×5 (02:34→21:12)
[2018-02-10] MEDS: DEXTROSE 5%-0.45% NACL 1,000 ML IV ×2 (02:41→23:02)
[2018-02-10] MEDS: LEVALBUTEROL (NEB) 0.63 MG/3 ML AMP HHN ×4 (05:13→19:10)
[2018-02-10] MEDS: VANCOMYCIN 1 GM 250 ML IVPB ×2 (07:03→17:38)
[2018-02-10] MEDS: INSULIN ASPART [NOVOLOG] 3 ML PEN SC ×4 (08:00→21:00)
[2018-02-10 08:12] LABS: MAGNESIUM 1.8 mg/dl (1.7-2.5)
[2018-02-10 08:18] LABS: ALANINE AMINOTRANSFERASE 31 IU/L (13-69); ALBUMIN/GLOBULIN RATIO 0.54; ALKALINE PHOSPHATASE 89 IU/L (42-121); ANION GAP 6 (8-16); ASPARTATE AMINO TRANSFERASE 26 IU/L (15-46); BILIRUBIN,INDIRECT 0.2 mg/dl (0-1.1); BILIRUBIN,TOTAL 0.2 mg/dl (0.2-1.3); BLOOD UREA NITROGEN 11 mg/dl (7-20); CALCIUM 7.6 mg/dl (8.4-10.2); CARBON DIOXIDE 35 mmol/L (21-31); CHLORIDE 97 mmol/L (97-110); CREATININE 0.62 mg/dl (0.61-1.24); GLUCOSE 139 mg/dl (70-220); POTASSIUM 3.7 mmol/L (3.5-5.1); SODIUM 134 mmol/L (135-144); TOTAL PROTEIN 5.7 g/dl (6.1-8.1)
[2018-02-10] MEDS: metFORMIN 500 MG TAB PO ×2 (08:40→17:38)
[2018-02-10] MEDS: BALSAM PERU/CASTOR OIL 60 GM TUBE TOP (09:00)
[2018-02-10] MEDS: DOCUSATE SODIUM 100 MG CAP PO ×2 (10:11→21:04)
[2018-02-10] MEDS: NICOTINE (14 MG/24 HR) PATCH TRANSDERM (10:12)
[2018-02-10] MEDS: ENOXAPARIN 40 MG/0.4 ML SYG SC (10:22)
[2018-02-10] MEDS: METHADONE (1 MG/ML 5 ML PO UD SYG) PO (11:12)
[2018-02-10] MEDS: CEPASTAT LOZENGE MT (17:38)
[2018-02-10] MEDS: PIPER-TAZO 3.375 GM IV (PMX) 100 ML IVPB (17:52)
[2018-02-11] MEDS: PIPER-TAZO 3.375 GM IV (PMX) 100 ML IVPB ×4 (00:07→18:32)
[2018-02-11] MEDS: ACCU-CHEK XX (02:00)
[2018-02-11] MEDS: VANCOMYCIN 1 GM 250 ML IVPB ×2 (05:43→16:28)
[2018-02-11 07:44] LABS: ADD MAN DIFF? NO
[2018-02-11 07:52] LABS: WHITE BLOOD COUNT 6.7 10^3/ul (4.8-10.8)
[2018-02-11 07:52] LABS: BASOPHILS % 0.3 % (0.0-2.0); EOSINOPHILS # 0.5 10^3/ul (0.0-0.5); EOSINOPHILS % 7.2 % (0.0-7.0); HEMOGLOBIN 8.5 g/dl (14.0-18.0); LYMPHOCYTES # 1.7 10^3/ul (0.8-2.9); LYMPHOCYTES % 25.3 % (15.0-51.0); MEAN CORPUSCULAR HEMOGLOBIN 25.8 pg (29.0-33.0); MEAN CORPUSCULAR HGB CONC 31.5 g/dl (32.0-37.0); MEAN CORPUSCULAR VOLUME 82.1 fl (82.0-101.0); MEAN PLATELET VOLUME 8.7 fl (7.4-10.4); MONOCYTE # 0.4 10^3/ul (0.3-0.9); MONOCYTES % 6.6 % (0.0-11.0); NEUTROPHILS % 60.3 % (39.0-77.0); PLATELET COUNT 193 10^3/UL (140-415); RED BLOOD COUNT 3.29 10^6/ul (4.70-6.10); RED CELL DISTRIBUTION WIDTH 17.1 % (11.5-14.5)
[2018-02-11] MEDS: INSULIN ASPART [NOVOLOG] 3 ML PEN SC ×4 (08:00→21:00)
[2018-02-11 08:40] LABS: ALANINE AMINOTRANSFERASE 38 IU/L (13-69); ALBUMIN 2.2 g/dl (3.3-4.9); ALBUMIN/GLOBULIN RATIO 0.57; ALKALINE PHOSPHATASE 89 IU/L (42-121); ANION GAP 10 (8-16); ASPARTATE AMINO TRANSFERASE 41 IU/L (15-46); BILIRUBIN,INDIRECT 0.3 mg/dl (0-1.1); BILIRUBIN,TOTAL 0.3 mg/dl (0.2-1.3); BLOOD UREA NITROGEN 9 mg/dl (7-20); CALCIUM 7.7 mg/dl (8.4-10.2); CARBON DIOXIDE 30 mmol/L (21-31); CHLORIDE 100 mmol/L (97-110); CREATININE 0.57 mg/dl (0.61-1.24); GLUCOSE 81 mg/dl (70-220); POTASSIUM 3.7 mmol/L (3.5-5.1); SODIUM 136 mmol/L (135-144)
[2018-02-11] MEDS: NICOTINE (14 MG/24 HR) PATCH TRANSDERM (08:56)
[2018-02-11] MEDS: BALSAM PERU/CASTOR OIL 60 GM TUBE TOP (08:56)
[2018-02-11] MEDS: DOCUSATE SODIUM 100 MG CAP PO ×2 (08:56→20:09)
[2018-02-11] MEDS: metFORMIN 500 MG TAB PO ×2 (08:57→17:18)
[2018-02-11] MEDS: ENOXAPARIN 40 MG/0.4 ML SYG SC (09:01)
[2018-02-11] MEDS: METHADONE (1 MG/ML 5 ML PO UD SYG) PO (09:26)
[2018-02-11] MEDS: LEVALBUTEROL (NEB) 0.63 MG/3 ML AMP HHN ×7 (16:00→19:31)
[2018-02-11] MEDS: HYDROmorphONE 1 MG/ML SYG IV ×2 (16:08→20:10)
[2018-02-11] MEDS: DEXTROSE 5%-0.45% NACL 1,000 ML IV (16:28)
[2018-02-11] MEDS: CEPASTAT LOZENGE MT (18:57)
[2018-02-12] MEDS: HYDROmorphONE 1 MG/ML SYG IV ×5 (00:01→16:54)
[2018-02-12] MEDS: PIPER-TAZO 3.375 GM IV (PMX) 100 ML IVPB ×5 (00:02→23:45)
[2018-02-12] MEDS: ACCU-CHEK XX (02:00)
[2018-02-12] MEDS: VANCOMYCIN 1 GM 250 ML IVPB ×2 (05:53→20:22)
[2018-02-12] MEDS: DEXTROSE 5%-0.45% NACL 1,000 ML IV ×2 (06:20→19:40)
[2018-02-12] MEDS: INSULIN ASPART [NOVOLOG] 3 ML PEN SC ×4 (08:00→20:28)
[2018-02-12] MEDS: metFORMIN 500 MG TAB PO ×2 (08:24→17:54)
[2018-02-12] MEDS: DOCUSATE SODIUM 100 MG CAP PO ×2 (08:25→20:26)
[2018-02-12] MEDS: NICOTINE (14 MG/24 HR) PATCH TRANSDERM (08:25)
[2018-02-12] MEDS: BALSAM PERU/CASTOR OIL 60 GM TUBE TOP (08:25)
[2018-02-12] MEDS: METHADONE (1 MG/ML 5 ML PO UD SYG) PO (08:25)
[2018-02-12] MEDS: ENOXAPARIN 40 MG/0.4 ML SYG SC (08:35)
[2018-02-12] MEDS: LEVALBUTEROL (NEB) 0.63 MG/3 ML AMP HHN (17:45)
[2018-02-12] MEDS: ACETAMINOPHEN 325 MG TAB PO (17:54)
[2018-02-13] MEDS: ACCU-CHEK XX (02:00)
[2018-02-13] MEDS: HYDROmorphONE 1 MG/ML SYG IV ×6 (03:33→23:36)
[2018-02-13] MEDS: PIPER-TAZO 3.375 GM IV (PMX) 100 ML IVPB ×4 (05:04→23:36)
[2018-02-13] MEDS: VANCOMYCIN 1.25 GM in SOD CHLORIDE 0.9% 250 ML IVPB ×2 (05:11→17:00)
[2018-02-13] MEDS: INSULIN ASPART [NOVOLOG] 3 ML PEN SC ×4 (07:40→20:44)
[2018-02-13] MEDS: metFORMIN 500 MG TAB PO ×2 (07:41→16:47)
[2018-02-13] MEDS: DOCUSATE SODIUM 100 MG CAP PO ×2 (07:41→20:42)
[2018-02-13] MEDS: BALSAM PERU/CASTOR OIL 60 GM TUBE TOP (07:41)
[2018-02-13] MEDS: DEXTROSE 5%-0.45% NACL 1,000 ML IV ×2 (07:41→22:20)
[2018-02-13] MEDS: ENOXAPARIN 40 MG/0.4 ML SYG SC (07:41)
[2018-02-13] MEDS: NICOTINE (14 MG/24 HR) PATCH TRANSDERM (07:41)
[2018-02-13] MEDS: METHADONE (1 MG/ML 5 ML PO UD SYG) PO (09:00)
[2018-02-13 12:21] LABS: PROCALCITONIN 4.34 ng/mL (<0.10)
[2018-02-14] MEDS: ACCU-CHEK XX (01:22)
[2018-02-14] MEDS: PIPER-TAZO 3.375 GM IV (PMX) 100 ML IVPB ×4 (05:02→23:58)
[2018-02-14] MEDS: VANCOMYCIN 1.25 GM in SOD CHLORIDE 0.9% 250 ML IVPB ×2 (05:03→18:15)
[2018-02-14] MEDS: INSULIN ASPART [NOVOLOG] 3 ML PEN SC ×4 (08:00→20:20)
[2018-02-14] MEDS: metFORMIN 500 MG TAB PO ×2 (08:26→17:02)
[2018-02-14] MEDS: DOCUSATE SODIUM 100 MG CAP PO ×2 (08:26→20:20)
[2018-02-14] MEDS: BALSAM PERU/CASTOR OIL 60 GM TUBE TOP (08:26)
[2018-02-14] MEDS: NICOTINE (14 MG/24 HR) PATCH TRANSDERM (08:26)
[2018-02-14] MEDS: HYDROmorphONE 1 MG/ML SYG IV ×3 (08:27→17:23)
[2018-02-14] MEDS: ENOXAPARIN 40 MG/0.4 ML SYG SC (08:31)
[2018-02-14] MEDS: METHADONE (1 MG/ML 5 ML PO UD SYG) PO (09:19)
[2018-02-14 11:32] LABS: BLOOD UREA NITROGEN 6 mg/dl (7-20)
[2018-02-14 11:32] LABS: CREATININE 0.63 mg/dl (0.61-1.24)
[2018-02-14] MEDS: DEXTROSE 5%-0.45% NACL 1,000 ML IV (11:50)
[2018-02-14] MEDS: CEPASTAT LOZENGE MT (18:28)
[2018-02-15] MEDS: HYDROmorphONE 1 MG/ML SYG IV ×4 (00:11→22:23)
[2018-02-15] MEDS: DEXTROSE 5%-0.45% NACL 1,000 ML IV ×2 (00:11→11:36)
[2018-02-15] MEDS: ACCU-CHEK XX (01:04)
[2018-02-15] MEDS: PIPER-TAZO 3.375 GM IV (PMX) 100 ML IVPB ×3 (05:00→17:08)
[2018-02-15] MEDS: VANCOMYCIN 1.25 GM in SOD CHLORIDE 0.9% 250 ML IVPB ×2 (05:03→17:49)
[2018-02-15] MEDS: INSULIN ASPART [NOVOLOG] 3 ML PEN SC ×4 (08:00→21:00)
[2018-02-15] MEDS: DOCUSATE SODIUM 100 MG CAP PO ×2 (08:37→21:32)
[2018-02-15] MEDS: BALSAM PERU/CASTOR OIL 60 GM TUBE TOP (08:37)
[2018-02-15] MEDS: metFORMIN 500 MG TAB PO ×2 (08:37→17:08)
[2018-02-15] MEDS: METHADONE (1 MG/ML 5 ML PO UD SYG) PO (08:41)
[2018-02-15] MEDS: NICOTINE (14 MG/24 HR) PATCH TRANSDERM (08:42)
[2018-02-15] MEDS: ENOXAPARIN 40 MG/0.4 ML SYG SC (08:49)
[2018-02-15] MEDS: CEPASTAT LOZENGE MT (12:01)
[2018-02-15] MEDS: ACETAMINOPHEN 325 MG TAB PO (22:57)
[2018-02-16] MEDS: ACCU-CHEK XX (02:00)
[2018-02-16] MEDS: DEXTROSE 5%-0.45% NACL 1,000 ML IV ×2 (04:33→17:26)
[2018-02-16] MEDS: VANCOMYCIN 1.25 GM in SOD CHLORIDE 0.9% 250 ML IVPB (04:34)
[2018-02-16 05:37] LABS: ADD MAN DIFF? NO
[2018-02-16 05:52] LABS: BASOPHILS % 0.4 % (0.0-2.0); EOSINOPHILS # 0.7 10^3/ul (0.0-0.5); EOSINOPHILS % 12.5 % (0.0-7.0); HEMATOCRIT 27.6 % (42.0-52.0); HEMOGLOBIN 8.7 g/dl (14.0-18.0); LYMPHOCYTES # 2.3 10^3/ul (0.8-2.9); LYMPHOCYTES % 42.9 % (15.0-51.0); MEAN CORPUSCULAR HEMOGLOBIN 25.7 pg (29.0-33.0); MEAN CORPUSCULAR HGB CONC 31.5 g/dl (32.0-37.0); MEAN CORPUSCULAR VOLUME 81.7 fl (82.0-101.0); MEAN PLATELET VOLUME 8.8 fl (7.4-10.4); MONOCYTE # 0.4 10^3/ul (0.3-0.9); NEUTROPHIL # 1.9 10^3/ul (1.6-7.5); NEUTROPHILS % 35.8 % (39.0-77.0); PLATELET COUNT 250 10^3/UL (140-415); RED BLOOD COUNT 3.38 10^6/ul (4.70-6.10); RED CELL DISTRIBUTION WIDTH 16.6 % (11.5-14.5)
[2018-02-16 05:52] LABS: WHITE BLOOD COUNT 5.4 10^3/ul (4.8-10.8)
[2018-02-16 06:14] LABS: ANION GAP 4 (8-16); BLOOD UREA NITROGEN 6 mg/dl (7-20); CALCIUM 8.1 mg/dl (8.4-10.2); CARBON DIOXIDE 35 mmol/L (21-31); CHLORIDE 102 mmol/L (97-110); CREATININE 0.48 mg/dl (0.61-1.24); GLUCOSE 90 mg/dl (70-220); POTASSIUM 3.3 mmol/L (3.5-5.1); SODIUM 138 mmol/L (135-144)
[2018-02-16 06:25] LABS: VANCOMYCIN,TROUGH 19.3 ug/ml (10.0-20.0)
[2018-02-16] MEDS: INSULIN ASPART [NOVOLOG] 3 ML PEN SC ×4 (08:00→20:19)
[2018-02-16] MEDS: metFORMIN 500 MG TAB PO ×2 (08:56→17:26)
[2018-02-16] MEDS: DOCUSATE SODIUM 100 MG CAP PO ×2 (08:56→20:16)
[2018-02-16] MEDS: METHADONE (1 MG/ML 5 ML PO UD SYG) PO (08:56)
[2018-02-16] MEDS: ENOXAPARIN 40 MG/0.4 ML SYG SC (09:02)
[2018-02-16] MEDS: NICOTINE (14 MG/24 HR) PATCH TRANSDERM (09:02)
[2018-02-16] MEDS: BALSAM PERU/CASTOR OIL 60 GM TUBE TOP (09:03)
[2018-02-16] MEDS: LEVALBUTEROL (NEB) 0.63 MG/3 ML AMP HHN (09:27)
[2018-02-16] MEDS: HYDROmorphONE 1 MG/ML SYG IV ×3 (11:13→20:16)
[2018-02-16] MEDS: POTASSIUM CHLORIDE (SR) 20 MEQ TAB PO (12:29)
[2018-02-16] MEDS: VANCOMYCIN 1 GM 250 ML IVPB (17:26)
[2018-02-17] MEDS: DEXTROSE 5%-0.45% NACL 1,000 ML IV ×2 (00:42→16:53)
[2018-02-17] MEDS: ACCU-CHEK XX (00:43)
[2018-02-17] MEDS: LEVALBUTEROL (NEB) 0.63 MG/3 ML AMP HHN ×2 (01:10→16:59)
[2018-02-17] MEDS: HYDROmorphONE 1 MG/ML SYG IV ×4 (02:19→20:43)
[2018-02-17] MEDS: VANCOMYCIN 1 GM 250 ML IVPB ×2 (05:30→16:53)
[2018-02-17] MEDS: INSULIN ASPART [NOVOLOG] 3 ML PEN SC ×4 (08:00→20:33)
[2018-02-17] MEDS: ENOXAPARIN 40 MG/0.4 ML SYG SC (08:12)
[2018-02-17] MEDS: DOCUSATE SODIUM 100 MG CAP PO ×2 (08:13→20:33)
[2018-02-17] MEDS: metFORMIN 500 MG TAB PO ×2 (08:13→17:26)
[2018-02-17] MEDS: NICOTINE (14 MG/24 HR) PATCH TRANSDERM (08:15)
[2018-02-17] MEDS: BALSAM PERU/CASTOR OIL 60 GM TUBE TOP (09:00)
[2018-02-17] MEDS: METHADONE (1 MG/ML 5 ML PO UD SYG) PO (09:05)
[2018-02-18] MEDS: ACCU-CHEK XX (02:00)
[2018-02-18] MEDS: VANCOMYCIN 1 GM 250 ML IVPB (06:08)
[2018-02-18] MEDS: INSULIN ASPART [NOVOLOG] 3 ML PEN SC ×4 (08:00→20:14)
[2018-02-18] MEDS: DOCUSATE SODIUM 100 MG CAP PO ×2 (08:25→20:23)
[2018-02-18] MEDS: metFORMIN 500 MG TAB PO ×2 (08:25→17:27)
[2018-02-18] MEDS: NICOTINE (14 MG/24 HR) PATCH TRANSDERM (08:26)
[2018-02-18] MEDS: HYDROmorphONE 1 MG/ML SYG IV ×3 (08:26→23:19)
[2018-02-18] MEDS: ENOXAPARIN 40 MG/0.4 ML SYG SC (08:30)
[2018-02-18] MEDS: DEXTROSE 5%-0.45% NACL 1,000 ML IV ×2 (08:31→23:11)
[2018-02-18] MEDS: BALSAM PERU/CASTOR OIL 60 GM TUBE TOP (08:34)
[2018-02-18] MEDS: METHADONE (1 MG/ML 5 ML PO UD SYG) PO ×2 (10:00→11:48)
[2018-02-18 12:28] LABS: ADD MAN DIFF? NO
[2018-02-18 12:31] LABS: WHITE BLOOD COUNT 6.1 10^3/ul (4.8-10.8)
[2018-02-18 12:31] LABS: BASOPHILS % 0.3 % (0.0-2.0); EOSINOPHILS # 0.2 10^3/ul (0.0-0.5); EOSINOPHILS % 3.6 % (0.0-7.0); HEMATOCRIT 27.4 % (42.0-52.0); HEMOGLOBIN 8.6 g/dl (14.0-18.0); LYMPHOCYTES # 2.4 10^3/ul (0.8-2.9); LYMPHOCYTES % 38.9 % (15.0-51.0); MEAN CORPUSCULAR HEMOGLOBIN 25.4 pg (29.0-33.0); MEAN CORPUSCULAR HGB CONC 31.4 g/dl (32.0-37.0); MEAN CORPUSCULAR VOLUME 80.8 fl (82.0-101.0); MEAN PLATELET VOLUME 8.3 fl (7.4-10.4); MONOCYTE # 0.5 10^3/ul (0.3-0.9); MONOCYTES % 7.4 % (0.0-11.0); NEUTROPHILS % 49.5 % (39.0-77.0); PLATELET COUNT 287 10^3/UL (140-415); RED BLOOD COUNT 3.39 10^6/ul (4.70-6.10); RED CELL DISTRIBUTION WIDTH 17.2 % (11.5-14.5)
[2018-02-18 12:53] LABS: ANION GAP 8 (8-16); BLOOD UREA NITROGEN 10 mg/dl (7-20); CALCIUM 8.2 mg/dl (8.4-10.2); CARBON DIOXIDE 30 mmol/L (21-31); CHLORIDE 103 mmol/L (97-110); CREATININE 0.62 mg/dl (0.61-1.24); GLUCOSE 128 mg/dl (70-220); POTASSIUM 3.7 mmol/L (3.5-5.1); SODIUM 137 mmol/L (135-144)
[2018-02-18] MEDS: LEVALBUTEROL (NEB) 0.63 MG/3 ML AMP HHN (15:50)
[2018-02-18 17:16] LABS: VANCOMYCIN,TROUGH 20.6 ug/ml (10.0-20.0)
[2018-02-18] MEDS: VANCOMYCIN 750 MG in SOD CHLORIDE 0.9% 150 ML IVPB (23:11)
[2018-02-19] MEDS: ACCU-CHEK XX (02:00)
[2018-02-19] MEDS: HYDROmorphONE 1 MG/ML SYG IV ×3 (07:33→17:33)
[2018-02-19] MEDS: INSULIN ASPART [NOVOLOG] 3 ML PEN SC ×4 (07:42→21:00)
[2018-02-19] MEDS: ENOXAPARIN 40 MG/0.4 ML SYG SC (08:28)
[2018-02-19] MEDS: BALSAM PERU/CASTOR OIL 60 GM TUBE TOP (08:29)
[2018-02-19] MEDS: DOCUSATE SODIUM 100 MG CAP PO ×3 (08:29→21:25)
[2018-02-19] MEDS: metFORMIN 500 MG TAB PO ×2 (08:29→17:28)
[2018-02-19] MEDS: NICOTINE (14 MG/24 HR) PATCH TRANSDERM (08:29)
[2018-02-19] MEDS: METHADONE (1 MG/ML 5 ML PO UD SYG) PO (09:33)
[2018-02-19] MEDS: DEXTROSE 5%-0.45% NACL 1,000 ML IV (11:17)
[2018-02-19] MEDS: VANCOMYCIN 750 MG in SOD CHLORIDE 0.9% 150 ML IVPB ×2 (11:27→23:17)
[2018-02-19] MEDS: LEVALBUTEROL (NEB) 0.63 MG/3 ML AMP HHN (13:55)
[2018-02-19] MEDS: morphine LIQ (10 MG/5 ML) CUP PO (21:26)
[2018-02-20] MEDS: DEXTROSE 5%-0.45% NACL 1,000 ML IV ×2 (01:11→14:11)
[2018-02-20] MEDS: ACCU-CHEK XX (01:43)
[2018-02-20] MEDS: HYDROmorphONE 1 MG/ML SYG IV ×3 (01:44→18:15)
[2018-02-20] MEDS: INSULIN ASPART [NOVOLOG] 3 ML PEN SC ×3 (08:00→17:48)
[2018-02-20] MEDS: DOCUSATE SODIUM 100 MG CAP PO (08:30)
[2018-02-20] MEDS: NICOTINE (14 MG/24 HR) PATCH TRANSDERM (08:30)
[2018-02-20] MEDS: metFORMIN 500 MG TAB PO ×2 (08:30→17:47)
[2018-02-20] MEDS: ENOXAPARIN 40 MG/0.4 ML SYG SC (08:33)
[2018-02-20] MEDS: BALSAM PERU/CASTOR OIL 60 GM TUBE TOP (08:34)
[2018-02-20] MEDS: METHADONE (1 MG/ML 5 ML PO UD SYG) PO (11:28)
[2018-02-20] MEDS: VANCOMYCIN 750 MG in SOD CHLORIDE 0.9% 150 ML IVPB (11:31)
== END 2018-02-20 19:40 | DRG 453 ==
LOC: MS4 02-09 21:30 → ICU 01-27 21:32 → MS2 20:14 → MS1 01-28 17:54 → ICU 02-04 22:50
PROVIDERS: Neurological Surgery
PROC: 0RG2071 Fusion of 2 or more Cervical Vertebral Joints with Autologous Tissue Substitute, Posterior Approach, Posterior Column, Open Approach (ICD-10-PCS; principal; 2018-01-27 15:00)
PROC: 0SG00A0 Fusion of Lumbar Vertebral Joint with Interbody Fusion Device, Anterior Approach, Anterior Column, Open Approach (ICD-10-PCS; 2018-01-27 18:29)
PROC: 0SB20ZZ Excision of Lumbar Vertebral Disc, Open Approach (ICD-10-PCS; 2018-01-27 18:29)
PROC: 0SH004Z Insertion of Internal Fixation Device into Lumbar Vertebral Joint, Open Approach (ICD-10-PCS; 2018-01-27 18:29)
PROC: 0SH304Z Insertion of Internal Fixation Device into Lumbosacral Joint, Open Approach (ICD-10-PCS; 2018-01-27 18:29)
PROC: 30233N1 Transfusion of Nonautologous Red Blood Cells into Peripheral Vein, Percutaneous Approach (ICD-10-PCS; 2018-01-27 18:29)
PROC: 5A1945Z Respiratory Ventilation, 24-96 Consecutive Hours (ICD-10-PCS; 2018-01-27 18:29)
DX: M46.26 Osteomyelitis of vertebra, lumbar region (principal); G06.1 Intraspinal abscess and granuloma; G82.50 Quadriplegia, unspecified; K68.12 Psoas muscle abscess; J96.01 Acute respiratory failure with hypoxia; G95.29 Other cord compression; M47.12 Other spondylosis with myelopathy, cervical region; M50.022 Cervical disc disorder at C5-C6 level with myelopathy; M51.06 Intervertebral disc disorders with myelopathy, lumbar region; M47.16 Other spondylosis with myelopathy, lumbar region; E11.9 Type 2 diabetes mellitus without complications; M50.33 Other cervical disc degeneration, cervicothoracic region; M47.23 Other spondylosis with radiculopathy, cervicothoracic region; M51.26 Other intervertebral disc displacement, lumbar region; M48.061 Spinal stenosis, lumbar region without neurogenic claudication; R33.9 Retention of urine, unspecified; B18.2 Chronic viral hepatitis C; D64.9 Anemia, unspecified; M25.78 Osteophyte, vertebrae; E83.42 Hypomagnesemia; I10 Essential (primary) hypertension; Z91.14 Patient's other noncompliance with medication regimen
CPT/HCPCS: 36430; 36600; 71045; 72020; 72100; 72114; 72125; 72131; 72142; 73030; 74018; 80048; 80053; 80061; 80076; 80202; 81001; 82565; 82803; 82962; 83036; 83690; 83735; 84100; 84145; 84520; 85014; 85018; 85025; 85610; 85651; 85730; 86480; 86635; 86644; 86703; 86704; 86706; 86709; 86803; 86850; 86900; 86901; 86920; 87040; 87070; 87075; 87081; 87086; 87102; 87116; 87206; 87340; 88304; 88311; 93005; 93306; 94002; 94003; 94640; 94664; 94770; 97110; 97163; 97164; 97530

== ENCOUNTER 2018-03-29 21:06 | Inpatient (IN) | payer OTHER, MEDICAID ==
[2018-03-29] MEDS ORDERED: GLUCOSE GEL 15 GRAM TUBE BUCCAL (22:00)
[2018-03-29] MEDS ORDERED: GLUCOSE GEL 15 GRAM TUBE PO ×2 (22:00)
[2018-03-29] MEDS ORDERED: GLUCAGON 1 MG INJ IM (22:00)
[2018-03-29] MEDS ORDERED: DEXTROSE 50% 50 ML SYRINGE IV (22:00)
[2018-03-29] MEDS: HYDROCODONE/APAP (5/325) TAB PO (22:07)
[2018-03-29] MEDS ORDERED: VANCOMYCIN IV PER PHARMACY XX (22:30)
[2018-03-29] MEDS: INSULIN GLARGINE [LANTus] (100 UNITS/ML) SYG SC (23:22)
[2018-03-29] MEDS: INSULIN ASPART [NOVOLOG] 3 ML PEN SC (23:22)
[2018-03-30] MEDS: VANCOMYCIN 1.25 GM in SOD CHLORIDE 0.9% 250 ML IVPB (00:19)
[2018-03-30 01:05] LABS: ADD MAN DIFF? NO
[2018-03-30 01:14] LABS: BASOPHILS % 0.3 % (0.0-2.0); EOSINOPHILS # 0.3 10^3/ul (0.0-0.5); EOSINOPHILS % 3.6 % (0.0-7.0); HEMATOCRIT 26.9 % (42.0-52.0); HEMOGLOBIN 8.7 g/dl (14.0-18.0); LYMPHOCYTES % 42.1 % (15.0-51.0); MEAN CORPUSCULAR HEMOGLOBIN 25.4 pg (29.0-33.0); MEAN CORPUSCULAR HGB CONC 32.3 g/dl (32.0-37.0); MEAN CORPUSCULAR VOLUME 78.7 fl (82.0-101.0); MEAN PLATELET VOLUME 8.2 fl (7.4-10.4); MONOCYTE # 0.6 10^3/ul (0.3-0.9); NEUTROPHIL # 3.2 10^3/ul (1.6-7.5); NEUTROPHILS % 45.4 % (39.0-77.0); PLATELET COUNT 222 10^3/UL (140-415); RED BLOOD COUNT 3.42 10^6/ul (4.70-6.10); RED CELL DISTRIBUTION WIDTH 17.2 % (11.5-14.5)
[2018-03-30 01:58] LABS: ALANINE AMINOTRANSFERASE 6 IU/L (13-69); ALBUMIN 2.3 g/dl (3.3-4.9); ALBUMIN/GLOBULIN RATIO 0.63; ALKALINE PHOSPHATASE 147 IU/L (42-121); ANION GAP 8 (8-16); ASPARTATE AMINO TRANSFERASE 30 IU/L (15-46); BILIRUBIN,INDIRECT 0.1 mg/dl (0-1.1); BILIRUBIN,TOTAL 0.1 mg/dl (0.2-1.3); BLOOD UREA NITROGEN 25 mg/dl (7-20); CALCIUM 8.5 mg/dl (8.4-10.2); CARBON DIOXIDE 27 mmol/L (21-31); CHLORIDE 104 mmol/L (97-110); CREATININE 1.03 mg/dl (0.61-1.24); GLUCOSE 240 mg/dl (70-220); POTASSIUM 4.3 mmol/L (3.5-5.1); SODIUM 135 mmol/L (135-144); TOTAL PROTEIN 5.9 g/dl (6.1-8.1)
[2018-03-30 02:20] LABS: HEMOGLOBIN A1C 6.7 % (0-5.9)
[2018-03-30] MEDS ORDERED: PENDING SANTYL ORDER FOR WOUND CARE XX ×2 (02:30→05:30)
[2018-03-30] MEDS: HYDROCODONE/APAP (5/325) TAB PO ×5 (03:19→23:33)
[2018-03-30] MEDS ORDERED: COLLAGENASE 5 GM (UD JAR) TOP (05:30)
[2018-03-30] MEDS: INSULIN ASPART [NOVOLOG] 3 ML PEN SC ×4 (07:53→20:49)
[2018-03-30] MEDS ORDERED: INSULIN ASPART [NOVOLOG] 3 ML PEN SC (08:00)
[2018-03-30] MEDS: CARISOPRODOL 350 MG TAB PO ×2 (09:00→20:51)
[2018-03-30] MEDS: COLLAGENASE 5 GM (UD JAR) TOP (09:00)
[2018-03-30] MEDS: VANCOMYCIN 1 GM 250 ML IVPB (12:09)
[2018-03-30] MEDS ORDERED: HYDROCODONE/APAP (5/325) TAB PO (15:00)
[2018-03-30] MEDS: METHADONE 10 MG TAB PO (17:10)
[2018-03-30] MEDS: LORAZEPAM 0.5 MG TAB PO (17:10)
[2018-03-30] MEDS: NICOTINE (21 MG/24 HR) PATCH TRANSDERM (20:48)
[2018-03-30] MEDS: INSULIN GLARGINE [LANTus] (100 UNITS/ML) SYG SC (20:50)
[2018-03-30] MEDS: GABAPENTIN 300 MG CAP PO (20:51)
[2018-03-31] MEDS: VANCOMYCIN 1 GM 250 ML IVPB ×2 (01:38→14:03)
[2018-03-31] MEDS: HYDROCODONE/APAP (5/325) TAB PO ×3 (05:47→18:30)
[2018-03-31 06:34] LABS: ADD MAN DIFF? NO
[2018-03-31 06:35] LABS: BASOPHILS % 0.3 % (0.0-2.0); EOSINOPHILS # 0.5 10^3/ul (0.0-0.5); EOSINOPHILS % 5.4 % (0.0-7.0); HEMATOCRIT 26.9 % (42.0-52.0); HEMOGLOBIN 8.7 g/dl (14.0-18.0); LYMPHOCYTES # 3.7 10^3/ul (0.8-2.9); LYMPHOCYTES % 41.7 % (15.0-51.0); MEAN CORPUSCULAR HEMOGLOBIN 25.3 pg (29.0-33.0); MEAN CORPUSCULAR HGB CONC 32.3 g/dl (32.0-37.0); MEAN CORPUSCULAR VOLUME 78.2 fl (82.0-101.0); MEAN PLATELET VOLUME 8.3 fl (7.4-10.4); MONOCYTE # 0.8 10^3/ul (0.3-0.9); MONOCYTES % 8.4 % (0.0-11.0); NEUTROPHIL # 3.9 10^3/ul (1.6-7.5); NEUTROPHILS % 43.8 % (39.0-77.0); PLATELET COUNT 297 10^3/UL (140-415); RED BLOOD COUNT 3.44 10^6/ul (4.70-6.10); RED CELL DISTRIBUTION WIDTH 17.5 % (11.5-14.5)
[2018-03-31 06:35] LABS: WHITE BLOOD COUNT 8.9 10^3/ul (4.8-10.8)
[2018-03-31 06:54] LABS: ALANINE AMINOTRANSFERASE 19 IU/L (13-69); ALBUMIN 2.2 g/dl (3.3-4.9); ALBUMIN/GLOBULIN RATIO 0.62; ALKALINE PHOSPHATASE 133 IU/L (42-121); ANION GAP 6 (8-16); ASPARTATE AMINO TRANSFERASE 15 IU/L (15-46); BILIRUBIN,INDIRECT 0.1 mg/dl (0-1.1); BILIRUBIN,TOTAL 0.1 mg/dl (0.2-1.3); BLOOD UREA NITROGEN 24 mg/dl (7-20); CALCIUM 8.4 mg/dl (8.4-10.2); CARBON DIOXIDE 28 mmol/L (21-31); CHLORIDE 106 mmol/L (97-110); CREATININE 1.01 mg/dl (0.61-1.24); GLUCOSE 99 mg/dl (70-220); POTASSIUM 3.5 mmol/L (3.5-5.1); SODIUM 136 mmol/L (135-144); TOTAL PROTEIN 5.7 g/dl (6.1-8.1)
[2018-03-31 06:55] LABS: IRON 37 ug/dl (35-150)
[2018-03-31 07:04] LABS: % IRON SATURATION 22 % SAT (22-52); TOTAL IRON BINDING CAPACITY 169 ug/dl (241-421)
[2018-03-31] MEDS: INSULIN ASPART [NOVOLOG] 3 ML PEN SC ×4 (08:00→21:00)
[2018-03-31] MEDS: NICOTINE (21 MG/24 HR) PATCH TRANSDERM (08:32)
[2018-03-31] MEDS: GABAPENTIN 300 MG CAP PO ×3 (08:32→20:25)
[2018-03-31] MEDS: METHADONE 10 MG TAB PO ×2 (08:32→17:31)
[2018-03-31] MEDS: LORAZEPAM 0.5 MG TAB PO ×2 (08:32→17:31)
[2018-03-31] MEDS: CARISOPRODOL 350 MG TAB PO ×2 (08:32→20:25)
[2018-03-31] MEDS: COLLAGENASE 5 GM (UD JAR) TOP (08:38)
[2018-03-31 10:19] LABS: ERYTHROCYTE SEDIMENTATION RATE 68 mm/Hr (0-20)
[2018-03-31 12:05] LABS: VANCOMYCIN,TROUGH 17.2 ug/ml (10.0-20.0)
[2018-03-31] MEDS: ACETAMINOPHEN 325 MG TAB PO (20:27)
[2018-03-31] MEDS: INSULIN GLARGINE [LANTus] (100 UNITS/ML) SYG SC (20:30)
[2018-04-01] MEDS ORDERED: VANCOMYCIN 750 MG in SOD CHLORIDE 0.9% 150 ML IVPB
[2018-04-01] MEDS: CEFTRIAXONE 1 GM/50 ML (PMX) 50 ML IVPB (02:48)
[2018-04-01] MEDS: HYDROCODONE/APAP (5/325) TAB PO (02:49)
[2018-04-01] MEDS: DAPTOMYCIN 375 MG in SOD CHLORIDE 0.9% 100 ML IVPB (03:55)
[2018-04-01 06:34] LABS: CREATINE KINASE 21 IU/L (23-200)
[2018-04-01] MEDS: INSULIN ASPART [NOVOLOG] 3 ML PEN SC ×4 (08:00→20:31)
[2018-04-01] MEDS: LORAZEPAM 0.5 MG TAB PO (09:15)
[2018-04-01] MEDS: CARISOPRODOL 350 MG TAB PO (09:15)
[2018-04-01] MEDS: COLLAGENASE 5 GM (UD JAR) TOP (09:15)
[2018-04-01] MEDS: GABAPENTIN 300 MG CAP PO ×3 (09:15→20:32)
[2018-04-01] MEDS: METHADONE 10 MG TAB PO (09:15)
[2018-04-01] MEDS: NICOTINE (21 MG/24 HR) PATCH TRANSDERM (09:16)
[2018-04-01 15:12] LABS: INR 0.94; PROTIME 12.7 Sec (11.9-14.9)
[2018-04-01 15:13] LABS: PARTIAL THROMBOPLASTIN TIME 29.3 Sec (25.0-35.0)
[2018-04-01] MEDS: DEXAMETHASONE 4 MG/ML 1 ML INJ IV ×2 (15:27→22:18)
[2018-04-01] MEDS ORDERED: METHADONE (1 MG/ML 5 ML PO UD SYG) PO (18:00)
[2018-04-01] MEDS: PIPER-TAZO 3.375 GM IV (PMX) 100 ML IVPB ×2 (18:37→23:56)
[2018-04-01] MEDS: INSULIN GLARGINE [LANTus] (100 UNITS/ML) SYG SC (20:31)
[2018-04-01] MEDS: METHADONE (1 MG/ML 5 ML PO UD SYG) PO (20:32)
[2018-04-02] MEDS: INSULIN ASPART [NOVOLOG] 3 ML PEN SC ×5 (03:08→20:01)
[2018-04-02] MEDS: DAPTOMYCIN 375 MG in SOD CHLORIDE 0.9% 100 ML IVPB (03:48)
[2018-04-02] MEDS: DEXAMETHASONE 4 MG/ML 1 ML INJ IV ×3 (06:42→21:36)
[2018-04-02] MEDS: PIPER-TAZO 3.375 GM IV (PMX) 100 ML IVPB ×4 (06:42→23:46)
[2018-04-02 08:37] LABS: BLOOD UREA NITROGEN 27 mg/dl (7-20)
[2018-04-02 08:37] LABS: CREATININE 1.03 mg/dl (0.61-1.24)
[2018-04-02] MEDS: GABAPENTIN 300 MG CAP PO ×3 (08:51→19:57)
[2018-04-02] MEDS: COLLAGENASE 5 GM (UD JAR) TOP (08:52)
[2018-04-02] MEDS: NICOTINE (21 MG/24 HR) PATCH TRANSDERM (08:52)
[2018-04-02] MEDS: ENOXAPARIN 40 MG/0.4 ML SYG SC (08:53)
[2018-04-02] MEDS ORDERED: ENOXAPARIN 40 MG/0.4 ML SYG SC (09:00)
[2018-04-02] MEDS ORDERED: METHADONE 10 MG TAB PO (09:00)
[2018-04-02] MEDS: METHADONE (1 MG/ML 5 ML PO UD SYG) PO (10:22)
[2018-04-02] MEDS: ALPRAZOLAM 0.25 MG TAB PO ×2 (12:42→19:48)
[2018-04-02] MEDS: HYDROmorphONE 0.5 MG/0.5 ML SYG IV ×2 (15:31→21:41)
[2018-04-02] MEDS: INSULIN GLARGINE [LANTus] (100 UNITS/ML) SYG SC (19:56)
[2018-04-03] MEDS: ALPRAZOLAM 0.25 MG TAB PO ×2 (02:24→08:21)
[2018-04-03] MEDS: DAPTOMYCIN 375 MG in SOD CHLORIDE 0.9% 100 ML IVPB (03:43)
[2018-04-03] MEDS: HYDROmorphONE 0.5 MG/0.5 ML SYG IV ×2 (03:43→12:58)
[2018-04-03] MEDS: DEXAMETHASONE 4 MG/ML 1 ML INJ IV ×3 (06:04→21:08)
[2018-04-03] MEDS: PIPER-TAZO 3.375 GM IV (PMX) 100 ML IVPB ×3 (06:04→18:10)
[2018-04-03] MEDS: INSULIN ASPART [NOVOLOG] 3 ML PEN SC ×6 (08:12→21:11)
[2018-04-03] MEDS: GABAPENTIN 300 MG CAP PO ×3 (08:21→21:07)
[2018-04-03] MEDS: COLLAGENASE 5 GM (UD JAR) TOP (08:21)
[2018-04-03] MEDS: NICOTINE (21 MG/24 HR) PATCH TRANSDERM (08:21)
[2018-04-03] MEDS: ENOXAPARIN 40 MG/0.4 ML SYG SC (08:23)
[2018-04-03] MEDS: BALSAM PERU/CASTOR OIL 60 GM TUBE TOP (08:24)
[2018-04-03] MEDS: METHADONE (1 MG/ML 5 ML PO UD SYG) PO (09:44)
[2018-04-03 10:17] LABS: ADD MAN DIFF? NO
[2018-04-03 10:23] LABS: WHITE BLOOD COUNT 7.7 10^3/ul (4.8-10.8)
[2018-04-03 10:23] LABS: BASOPHILS % 0.1 % (0.0-2.0); HEMATOCRIT 27.3 % (42.0-52.0); LYMPHOCYTES # 1.3 10^3/ul (0.8-2.9); MEAN CORPUSCULAR HEMOGLOBIN 25.9 pg (29.0-33.0); MEAN CORPUSCULAR VOLUME 78.7 fl (82.0-101.0); MEAN PLATELET VOLUME 8.5 fl (7.4-10.4); MONOCYTE # 0.3 10^3/ul (0.3-0.9); MONOCYTES % 3.2 % (0.0-11.0); NEUTROPHIL # 6.1 10^3/ul (1.6-7.5); NEUTROPHILS % 79.3 % (39.0-77.0); PLATELET COUNT 314 10^3/UL (140-415); RED BLOOD COUNT 3.47 10^6/ul (4.70-6.10); RED CELL DISTRIBUTION WIDTH 17.1 % (11.5-14.5)
[2018-04-03 10:39] LABS: ANION GAP 9 (8-16); BLOOD UREA NITROGEN 32 mg/dl (7-20); CALCIUM 8.4 mg/dl (8.4-10.2); CARBON DIOXIDE 27 mmol/L (21-31); CHLORIDE 101 mmol/L (97-110); CREATININE 0.89 mg/dl (0.61-1.24); GLUCOSE 398 mg/dl (70-220); POTASSIUM 4.5 mmol/L (3.5-5.1); SODIUM 132 mmol/L (135-144)
[2018-04-03] MEDS: ALPRAZOLAM 0.5 MG TAB PO ×2 (14:32→22:12)
[2018-04-03] MEDS ORDERED: ALPRAZOLAM 0.5 MG TAB PO (18:00)
[2018-04-03] MEDS: HYDROmorphONE 1 MG/ML SYG IV (19:02)
[2018-04-03] MEDS: INSULIN GLARGINE [LANTus] (100 UNITS/ML) SYG SC (21:10)
[2018-04-04] MEDS: PIPER-TAZO 3.375 GM IV (PMX) 100 ML IVPB ×5 (00:17→23:46)
[2018-04-04] MEDS: DAPTOMYCIN 375 MG in SOD CHLORIDE 0.9% 100 ML IVPB (04:35)
[2018-04-04] MEDS: DEXAMETHASONE 4 MG/ML 1 ML INJ IV ×3 (05:24→21:31)
[2018-04-04] MEDS: HYDROmorphONE 1 MG/ML SYG IV ×2 (05:24→21:13)
[2018-04-04] MEDS: ALPRAZOLAM 0.5 MG TAB PO ×3 (06:29→18:56)
[2018-04-04 06:37] LABS: MAGNESIUM 2.1 mg/dl (1.7-2.5)
[2018-04-04 06:37] LABS: PHOSPHORUS 3.5 mg/dl (2.5-4.9)
[2018-04-04] MEDS: INSULIN ASPART [NOVOLOG] 3 ML PEN SC ×7 (09:09→21:00)
[2018-04-04] MEDS: GABAPENTIN 300 MG CAP PO ×3 (09:10→21:14)
[2018-04-04] MEDS: ENOXAPARIN 40 MG/0.4 ML SYG SC (09:10)
[2018-04-04] MEDS: BALSAM PERU/CASTOR OIL 60 GM TUBE TOP (09:11)
[2018-04-04] MEDS: COLLAGENASE 5 GM (UD JAR) TOP (09:11)
[2018-04-04] MEDS: METHADONE (1 MG/ML 5 ML PO UD SYG) PO (09:12)
[2018-04-04] MEDS: NICOTINE (21 MG/24 HR) PATCH TRANSDERM (09:12)
[2018-04-04] MEDS: INSULIN GLARGINE [LANTus] (100 UNITS/ML) SYG SC (20:00)
[2018-04-04] MEDS: ZOLPIDEM 5 MG TAB PO (22:29)
[2018-04-05] MEDS: DAPTOMYCIN 375 MG in SOD CHLORIDE 0.9% 100 ML IVPB (04:05)
[2018-04-05] MEDS: PIPER-TAZO 3.375 GM IV (PMX) 100 ML IVPB ×4 (05:46→23:08)
[2018-04-05] MEDS: DEXAMETHASONE 4 MG/ML 1 ML INJ IV ×3 (05:46→20:56)
[2018-04-05 08:00] LABS: ADD MAN DIFF? NO
[2018-04-05 08:07] LABS: WHITE BLOOD COUNT 10.6 10^3/ul (4.8-10.8)
[2018-04-05 08:07] LABS: BASOPHILS % 0.1 % (0.0-2.0); HEMATOCRIT 29.7 % (42.0-52.0); HEMOGLOBIN 9.6 g/dl (14.0-18.0); LYMPHOCYTES # 3.1 10^3/ul (0.8-2.9); LYMPHOCYTES % 28.9 % (15.0-51.0); MEAN CORPUSCULAR HEMOGLOBIN 26.2 pg (29.0-33.0); MEAN CORPUSCULAR HGB CONC 32.3 g/dl (32.0-37.0); MEAN CORPUSCULAR VOLUME 81.1 fl (82.0-101.0); MEAN PLATELET VOLUME 8.4 fl (7.4-10.4); MONOCYTE # 0.7 10^3/ul (0.3-0.9); MONOCYTES % 6.9 % (0.0-11.0); NEUTROPHIL # 6.7 10^3/ul (1.6-7.5); NEUTROPHILS % 63.5 % (39.0-77.0); PLATELET COUNT 338 10^3/UL (140-415); RED BLOOD COUNT 3.66 10^6/ul (4.70-6.10); RED CELL DISTRIBUTION WIDTH 17.2 % (11.5-14.5)
[2018-04-05] MEDS: ALPRAZOLAM 0.5 MG TAB PO ×2 (08:18→20:55)
[2018-04-05] MEDS: COLLAGENASE 5 GM (UD JAR) TOP (08:18)
[2018-04-05] MEDS: NICOTINE (21 MG/24 HR) PATCH TRANSDERM (08:18)
[2018-04-05] MEDS: GABAPENTIN 300 MG CAP PO ×3 (08:18→20:55)
[2018-04-05] MEDS: INSULIN ASPART [NOVOLOG] 3 ML PEN SC ×7 (08:22→20:55)
[2018-04-05] MEDS: ENOXAPARIN 40 MG/0.4 ML SYG SC (08:24)
[2018-04-05 08:26] LABS: ANION GAP 9 (8-16); BLOOD UREA NITROGEN 37 mg/dl (7-20); CALCIUM 8.9 mg/dl (8.4-10.2); CARBON DIOXIDE 31 mmol/L (21-31); CHLORIDE 100 mmol/L (97-110); CREATININE 0.98 mg/dl (0.61-1.24); GLUCOSE 164 mg/dl (70-220); MAGNESIUM 2.1 mg/dl (1.7-2.5); POTASSIUM 4.2 mmol/L (3.5-5.1); SODIUM 136 mmol/L (135-144)
[2018-04-05 08:29] LABS: INR 0.97
[2018-04-05 08:30] LABS: PARTIAL THROMBOPLASTIN TIME 27.8 Sec (25.0-35.0)
[2018-04-05] MEDS: BALSAM PERU/CASTOR OIL 60 GM TUBE TOP (08:34)
[2018-04-05] MEDS: METHADONE (1 MG/ML 5 ML PO UD SYG) PO (08:34)
[2018-04-05] MEDS: INSULIN GLARGINE [LANTus] (100 UNITS/ML) SYG SC (20:54)
[2018-04-05] MEDS: BENZONATATE 100 MG CAP PO (21:16)
[2018-04-05] MEDS: GUAIFENESIN/DM 5ML CUP PO (23:08)
[2018-04-06] MEDS: LORAZEPAM 2 MG INJ IV (00:15)
[2018-04-06] MEDS: ALBUTEROL/IPRATROPIUM (NEB) 3 ML AMP HHN ×2 (01:00→10:00)
[2018-04-06] MEDS: ALPRAZOLAM 0.5 MG TAB PO ×3 (02:56→18:43)
[2018-04-06] MEDS: DAPTOMYCIN 375 MG in SOD CHLORIDE 0.9% 100 ML IVPB (03:00)
[2018-04-06] MEDS: DEXAMETHASONE 4 MG/ML 1 ML INJ IV ×3 (06:09→20:54)
[2018-04-06] MEDS: PIPER-TAZO 3.375 GM IV (PMX) 100 ML IVPB ×4 (06:09→23:25)
[2018-04-06] MEDS: INSULIN ASPART [NOVOLOG] 3 ML PEN SC ×8 (08:46→20:52)
[2018-04-06] MEDS: NICOTINE (21 MG/24 HR) PATCH TRANSDERM (08:54)
[2018-04-06] MEDS: BENZONATATE 100 MG CAP PO (08:54)
[2018-04-06] MEDS: GUAIFENESIN/DM 5ML CUP PO ×2 (08:55→20:54)
[2018-04-06] MEDS: ENOXAPARIN 40 MG/0.4 ML SYG SC (08:55)
[2018-04-06] MEDS: COLLAGENASE 5 GM (UD JAR) TOP (08:55)
[2018-04-06] MEDS: GABAPENTIN 300 MG CAP PO ×3 (08:55→20:53)
[2018-04-06] MEDS: BALSAM PERU/CASTOR OIL 60 GM TUBE TOP (09:04)
[2018-04-06] MEDS: METHADONE (1 MG/ML 5 ML PO UD SYG) PO (10:17)
[2018-04-06] MEDS: INSULIN GLARGINE [LANTus] (100 UNITS/ML) SYG SC (20:51)
[2018-04-06] MEDS ORDERED: ZOLPIDEM 5 MG TAB (23:22)
[2018-04-06] MEDS: ZOLPIDEM 5 MG TAB PO (23:25)
[2018-04-07] MEDS: ALPRAZOLAM 0.5 MG TAB PO ×2 (01:08→12:42)
[2018-04-07 01:55] LABS: ADD MAN DIFF? NO
[2018-04-07 01:57] LABS: BASOPHILS % 0.1 % (0.0-2.0); EOSINOPHILS % 0.4 % (0.0-7.0); HEMATOCRIT 31.3 % (42.0-52.0); LYMPHOCYTES # 1.8 10^3/ul (0.8-2.9); LYMPHOCYTES % 18.9 % (15.0-51.0); MEAN CORPUSCULAR HGB CONC 31.9 g/dl (32.0-37.0); MEAN CORPUSCULAR VOLUME 81.3 fl (82.0-101.0); MEAN PLATELET VOLUME 8.4 fl (7.4-10.4); MONOCYTE # 0.7 10^3/ul (0.3-0.9); MONOCYTES % 7.5 % (0.0-11.0); NEUTROPHIL # 6.6 10^3/ul (1.6-7.5); NEUTROPHILS % 70.6 % (39.0-77.0); PLATELET COUNT 321 10^3/UL (140-415); RED BLOOD COUNT 3.85 10^6/ul (4.70-6.10); RED CELL DISTRIBUTION WIDTH 17.3 % (11.5-14.5)
[2018-04-07 01:57] LABS: WHITE BLOOD COUNT 9.4 10^3/ul (4.8-10.8)
[2018-04-07] MEDS: DEXTROSE 5%-0.45% NACL 1,000 ML IV (02:07)
[2018-04-07 02:16] LABS: ALANINE AMINOTRANSFERASE 36 IU/L (13-69); ALBUMIN 2.5 g/dl (3.3-4.9); ALBUMIN/GLOBULIN RATIO 0.83; ALKALINE PHOSPHATASE 171 IU/L (42-121); ANION GAP 8 (8-16); ASPARTATE AMINO TRANSFERASE 28 IU/L (15-46); BILIRUBIN,INDIRECT 0.1 mg/dl (0-1.1); BILIRUBIN,TOTAL 0.1 mg/dl (0.2-1.3); BLOOD UREA NITROGEN 45 mg/dl (7-20); CALCIUM 8.2 mg/dl (8.4-10.2); CARBON DIOXIDE 33 mmol/L (21-31); CHLORIDE 95 mmol/L (97-110); CREATININE 1.25 mg/dl (0.61-1.24); GLUCOSE 334 mg/dl (70-220); INR 0.84; POTASSIUM 5.1 mmol/L (3.5-5.1); PROTIME 11.6 Sec (11.9-14.9); PT RATIO 0.9; SODIUM 131 mmol/L (135-144); TOTAL PROTEIN 5.5 g/dl (6.1-8.1)
[2018-04-07 02:17] LABS: PARTIAL THROMBOPLASTIN TIME 25.9 Sec (25.0-35.0)
[2018-04-07] MEDS: INSULIN ASPART [NOVOLOG] 3 ML PEN SC ×8 (05:17→23:49)
[2018-04-07] MEDS: DEXAMETHASONE 4 MG/ML 1 ML INJ IV ×3 (06:00→23:37)
[2018-04-07] MEDS: PIPER-TAZO 3.375 GM IV (PMX) 100 ML IVPB ×4 (06:00→23:37)
[2018-04-07] MEDS: DAPTOMYCIN 375 MG in SOD CHLORIDE 0.9% 100 ML IVPB (06:26)
[2018-04-07] MEDS: NICOTINE (21 MG/24 HR) PATCH TRANSDERM (09:45)
[2018-04-07] MEDS: COLLAGENASE 5 GM (UD JAR) TOP (09:45)
[2018-04-07] MEDS: ENOXAPARIN 40 MG/0.4 ML SYG SC (09:45)
[2018-04-07] MEDS: GABAPENTIN 300 MG CAP PO ×3 (09:45→23:37)
[2018-04-07] MEDS: BALSAM PERU/CASTOR OIL 60 GM TUBE TOP (09:47)
[2018-04-07] MEDS: METHADONE (1 MG/ML 5 ML PO UD SYG) PO (10:24)
[2018-04-07] MEDS: ALPRAZOLAM 0.25 MG TAB PO (19:41)
[2018-04-07] MEDS: HYDROmorphONE 1 MG/ML SYG IV (20:54)
[2018-04-07] MEDS: INSULIN GLARGINE [LANTus] (100 UNITS/ML) SYG SC (23:43)
[2018-04-08] MEDS: DAPTOMYCIN 375 MG in SOD CHLORIDE 0.9% 100 ML IVPB (04:46)
[2018-04-08] MEDS: ALPRAZOLAM 0.25 MG TAB PO ×3 (04:54→18:47)
[2018-04-08] MEDS: DEXAMETHASONE 4 MG/ML 1 ML INJ IV ×3 (06:17→21:08)
[2018-04-08] MEDS: PIPER-TAZO 3.375 GM IV (PMX) 100 ML IVPB ×4 (06:17→23:23)
[2018-04-08 07:41] LABS: CREATINE KINASE < 20 IU/L (23-200)
[2018-04-08] MEDS: GABAPENTIN 300 MG CAP PO ×3 (08:28→20:19)
[2018-04-08] MEDS: NICOTINE (21 MG/24 HR) PATCH TRANSDERM (08:29)
[2018-04-08] MEDS: COLLAGENASE 5 GM (UD JAR) TOP (08:30)
[2018-04-08] MEDS: BALSAM PERU/CASTOR OIL 60 GM TUBE TOP (08:32)
[2018-04-08] MEDS: INSULIN ASPART [NOVOLOG] 3 ML PEN SC ×7 (08:59→20:38)
[2018-04-08] MEDS: ENOXAPARIN 40 MG/0.4 ML SYG SC (09:01)
[2018-04-08] MEDS: METHADONE (1 MG/ML 5 ML PO UD SYG) PO (09:37)
[2018-04-08] MEDS: HYDROmorphONE 1 MG/ML SYG IV ×2 (13:00→18:47)
[2018-04-08] MEDS: INSULIN GLARGINE [LANTus] (100 UNITS/ML) SYG SC (20:37)
[2018-04-08] MEDS: LORAZEPAM 2 MG INJ IV (23:23)
[2018-04-09] MEDS: DEXTROSE 5%-0.45% NACL 1,000 ML IV ×3 (02:15→21:29)
[2018-04-09] MEDS: DAPTOMYCIN 375 MG in SOD CHLORIDE 0.9% 100 ML IVPB (03:56)
[2018-04-09] MEDS: DEXAMETHASONE 4 MG/ML 1 ML INJ IV ×3 (05:43→21:19)
[2018-04-09] MEDS: PIPER-TAZO 3.375 GM IV (PMX) 100 ML IVPB ×4 (05:43→23:14)
[2018-04-09] MEDS: INSULIN ASPART [NOVOLOG] 3 ML PEN SC ×7 (08:00→20:10)
[2018-04-09] MEDS: METHADONE (1 MG/ML 5 ML PO UD SYG) PO (08:56)
[2018-04-09] MEDS: GABAPENTIN 300 MG CAP PO ×3 (08:56→20:08)
[2018-04-09] MEDS: ENOXAPARIN 40 MG/0.4 ML SYG SC (08:56)
[2018-04-09] MEDS: NICOTINE (21 MG/24 HR) PATCH TRANSDERM (09:00)
[2018-04-09] MEDS: BALSAM PERU/CASTOR OIL 60 GM TUBE TOP (09:02)
[2018-04-09] MEDS: COLLAGENASE 5 GM (UD JAR) TOP (09:02)
[2018-04-09] MEDS: HYDROmorphONE 1 MG/ML SYG IV ×2 (09:08→13:11)
[2018-04-09] MEDS ORDERED: LEVALBUTEROL (NEB) 1.25 MG/0.5 ML AMP HHN (09:30)
[2018-04-09] MEDS ORDERED: METOCLOPRAMIDE 10 MG INJ IV (09:30)
[2018-04-09] MEDS ORDERED: FENTAnyl 50 MCG/ML VIAL IV ×2 (09:30)
[2018-04-09] MEDS ORDERED: ONDANSETRON 4 MG INJ IV (09:30)
[2018-04-09] MEDS ORDERED: DIPHENHYDRAMINE 50 MG INJ IV (09:30)
[2018-04-09] MEDS ORDERED: MIDAZOLAM 1 MG/ML 2 ML INJ IV (09:30)
[2018-04-09] MEDS ORDERED: LORAZEPAM 2 MG INJ IV (09:30)
[2018-04-09] MEDS ORDERED: HYDROmorphONE 1 MG/5 ML IV SYRINGE IV ×3 (09:30)
[2018-04-09] MEDS ORDERED: PROCHLORPERAZINE 10 MG INJ IV (09:30)
[2018-04-09] MEDS ORDERED: MEPERIDINE 25 MG INJ IV (09:30)
[2018-04-09] MEDS ORDERED: IPRATROPIUM (NEB) 0.5 MG/2.5 ML AMP HHN (09:30)
[2018-04-09] MEDS ORDERED: TRIMETHOBENZAMIDE 100 MG/ML VIAL IM (09:30)
[2018-04-09] MEDS ORDERED: HALOPERIDOL 5 MG INJ IV (09:30)
[2018-04-09] MEDS ORDERED: FENTAnyl 50 MCG/ML VIAL (12:56)
[2018-04-09] MEDS ORDERED: ONDANSETRON 4 MG INJ (12:57)
[2018-04-09] MEDS ORDERED: GELATIN SIZE 100 SPONGE (13:18)
[2018-04-09] MEDS ORDERED: THROMBIN 5000 UNIT VIAL (13:19)
[2018-04-09] MEDS: INSULIN GLARGINE [LANTus] (100 UNITS/ML) SYG SC (20:09)
[2018-04-09] MEDS: ALPRAZOLAM 0.25 MG TAB PO (20:09)
[2018-04-10] MEDS: DAPTOMYCIN 375 MG in SOD CHLORIDE 0.9% 100 ML IVPB (03:09)
[2018-04-10] MEDS: HYDROmorphONE 1 MG/ML SYG IV ×2 (03:19→10:44)
[2018-04-10] MEDS: PIPER-TAZO 3.375 GM IV (PMX) 100 ML IVPB ×3 (05:01→18:00)
[2018-04-10] MEDS: DEXAMETHASONE 4 MG/ML 1 ML INJ IV ×2 (05:01→14:09)
[2018-04-10] MEDS ORDERED: EPHEDrine SULFATE 50 MG/5 ML SYG (07:00)
[2018-04-10 07:35] LABS: ADD MAN DIFF? NO
[2018-04-10 07:38] LABS: WHITE BLOOD COUNT 13.6 10^3/ul (4.8-10.8)
[2018-04-10 07:38] LABS: BASOPHILS % 0.1 % (0.0-2.0); EOSINOPHILS # 0.1 10^3/ul (0.0-0.5); HEMATOCRIT 31.1 % (42.0-52.0); LYMPHOCYTES % 36.5 % (15.0-51.0); MEAN CORPUSCULAR HEMOGLOBIN 25.9 pg (29.0-33.0); MEAN CORPUSCULAR HGB CONC 32.2 g/dl (32.0-37.0); MEAN CORPUSCULAR VOLUME 80.6 fl (82.0-101.0); MEAN PLATELET VOLUME 8.2 fl (7.4-10.4); MONOCYTES % 7.2 % (0.0-11.0); NEUTROPHIL # 7.2 10^3/ul (1.6-7.5); NEUTROPHILS % 52.9 % (39.0-77.0); PLATELET COUNT 314 10^3/UL (140-415); RED BLOOD COUNT 3.86 10^6/ul (4.70-6.10); RED CELL DISTRIBUTION WIDTH 19.3 % (11.5-14.5)
[2018-04-10 08:00] LABS: MAGNESIUM 1.7 mg/dl (1.7-2.5)
[2018-04-10] MEDS: INSULIN ASPART [NOVOLOG] 3 ML PEN SC ×7 (08:00→21:00)
[2018-04-10 08:01] LABS: ANION GAP 10 (8-16); BLOOD UREA NITROGEN 37 mg/dl (7-20); CALCIUM 7.5 mg/dl (8.4-10.2); CARBON DIOXIDE 25 mmol/L (21-31); CHLORIDE 102 mmol/L (97-110); CREATININE 0.89 mg/dl (0.61-1.24); GLUCOSE 279 mg/dl (70-220); POTASSIUM 3.6 mmol/L (3.5-5.1); SODIUM 133 mmol/L (135-144)
[2018-04-10] MEDS: ONDANSETRON 4 MG INJ IV (08:03)
[2018-04-10] MEDS: DEXTROSE 5%-0.45% NACL 1,000 ML IV ×2 (08:06→18:00)
[2018-04-10] MEDS: BALSAM PERU/CASTOR OIL 60 GM TUBE TOP (08:07)
[2018-04-10] MEDS: COLLAGENASE 5 GM (UD JAR) TOP (08:07)
[2018-04-10] MEDS: GABAPENTIN 300 MG CAP PO ×3 (08:07→21:00)
[2018-04-10] MEDS: METHADONE (1 MG/ML 5 ML PO UD SYG) PO (08:07)
[2018-04-10] MEDS: ENOXAPARIN 40 MG/0.4 ML SYG SC (08:07)
[2018-04-10] MEDS: NICOTINE (21 MG/24 HR) PATCH TRANSDERM (08:11)
[2018-04-10] MEDS ORDERED: MIDAZOLAM 1 MG/ML 2 ML INJ (16:27)
[2018-04-10] MEDS ORDERED: PROPOFOL 20 ML (16:27)
[2018-04-10] MEDS ORDERED: ROCURONIUM 50 MG INJ ×3 (16:27→20:49)
[2018-04-10] MEDS ORDERED: LIDOCAINE 2% (SDV) 5 ML INJ (16:27)
[2018-04-10] MEDS ORDERED: CEFAZOLIN 1 GM INJ ×2 (17:19→21:08)
[2018-04-10] MEDS ORDERED: DEXAMETHASONE 4 MG/ML 1 ML INJ (17:29)
[2018-04-10] MEDS ORDERED: ONDANSETRON 4 MG INJ (17:29)
[2018-04-10] MEDS ORDERED: FAMOTIDINE 20 MG INJ (17:29)
[2018-04-10] MEDS: POLYMYXIN/BACITRACIN 1L IRRIG (17:39)
[2018-04-10] MEDS: GELATIN SIZE 100 SPONGE (17:39)
[2018-04-10] MEDS: THROMBIN 5000 UNIT VIAL (17:40)
[2018-04-10] MEDS: ROPIVACAINE 0.5 % 30 ML VIAL (17:41)
[2018-04-10] MEDS: INSULIN GLARGINE [LANTus] (100 UNITS/ML) SYG SC (20:00)
[2018-04-10] MEDS ORDERED: PHENYLephrine (100 MCG/ML) 5ML SYG (21:13)
[2018-04-10] MEDS ORDERED: HYDROmorphONE 0.5 MG/0.5 ML SYG IV ×2 (22:30)
[2018-04-10] MEDS ORDERED: ONDANSETRON 4 MG INJ IV (22:30)
[2018-04-10] MEDS ORDERED: FENTAnyl 50 MCG/ML VIAL IV (22:30)
[2018-04-10] MEDS: PROPOFOL 100 ML IV (23:00)
[2018-04-10] MEDS: DOCUSATE SODIUM 100 MG CAP PO (23:00)
[2018-04-10] MEDS ORDERED: NALOXONE (0.4 MG/ML) INJ IV (23:00)
[2018-04-10] MEDS: HYDROmorphONE 0.5 MG/0.5 ML SYG IV (23:32)
[2018-04-11 00:08] LABS: AADO2 Arterial 105.1 mmHg (7.0-24.0); Arterial Base Excess -5.4 mmol/L (-3.0-3); Arterial Blood Gas Oxygen Sat 99.7 mmHG (95.0-98.0); Arterial COHb 0.3 % (0.0-3.0); Arterial HCO3 22.1 mmol/L (22.0-26.0); Arterial MetHb 0.4 % (0.0-1.5); Arterial Total Hemglobin 10.6 g/dl (12.0-18.0); Arterial pCO2 52.2 mmhg (35-45); MODE VENT - AC; Site A-Line
[2018-04-11] MEDS: DEXTROSE 5%-0.9% NACL 1,000 ML IV ×2 (00:47→10:30)
[2018-04-11] MEDS: PROPOFOL 100 ML IV (01:00)
[2018-04-11] MEDS: CEFAZOLIN 1 GM/50 ML (PMX) 50 ML IVPB ×4 (01:07→17:53)
[2018-04-11] MEDS: DEXAMETHASONE 4 MG/ML 1 ML INJ IV ×4 (01:07→22:09)
[2018-04-11] MEDS: PIPER-TAZO 3.375 GM IV (PMX) 100 ML IVPB ×3 (01:09→12:19)
[2018-04-11] MEDS: INSULIN GLARGINE [LANTus] (100 UNITS/ML) SYG SC ×2 (01:26→21:03)
[2018-04-11] MEDS: HYDROmorphONE 1 MG/ML SYG IV ×5 (01:31→23:10)
[2018-04-11] MEDS: SOD CHLORIDE 0.9% 500 ML IV ×2 (02:43→05:44)
[2018-04-11] MEDS: FENTAnyl (DRIP) 1000 mcg/100mL 100 ML IV (03:15)
[2018-04-11] MEDS: DEXTROSE 5%-0.45% NACL 1,000 ML IV (04:00)
[2018-04-11] MEDS: LORAZEPAM 2 MG INJ IV ×2 (04:34→08:00)
[2018-04-11 04:48] LABS: AADO2 Arterial 41.3 mmHg (7.0-24.0); Arterial Base Excess -4.1 mmol/L (-3.0-3); Arterial COHb 0.3 % (0.0-3.0); Arterial Fraction of Oxyhgb 98.5 % (93.0-99.0); Arterial HCO3 20.7 mmol/L (22.0-26.0); Arterial MetHb 0.2 % (0.0-1.5); Arterial Total Hemglobin 9.7 g/dl (12.0-18.0); Arterial pCO2 36.8 mmhg (35-45); MODE VENT - AC; Site A-Line
[2018-04-11] MEDS: DAPTOMYCIN 375 MG in SOD CHLORIDE 0.9% 100 ML IVPB (05:11)
[2018-04-11 05:24] LABS: HEMATOCRIT 27.1 % (42.0-52.0); HEMOGLOBIN 8.7 g/dl (14.0-18.0)
[2018-04-11] MEDS ORDERED: MIDAZOLAM (DRIP) 50 mg/50 mL 50 ML IV (05:29)
[2018-04-11] MEDS: MIDAZOLAM (DRIP) 50 mg/50 mL 50 ML IV (05:33)
[2018-04-11 05:58] LABS: ANION GAP 12 (8-16); BLOOD UREA NITROGEN 38 mg/dl (7-20); CALCIUM 7.6 mg/dl (8.4-10.2); CARBON DIOXIDE 20 mmol/L (21-31); CHLORIDE 106 mmol/L (97-110); CREATININE 0.94 mg/dl (0.61-1.24); GLUCOSE 246 mg/dl (70-220); POTASSIUM 4.8 mmol/L (3.5-5.1); SODIUM 133 mmol/L (135-144)
[2018-04-11] MEDS ORDERED: PROPOFOL 100 ML IV (06:00)
[2018-04-11] MEDS: INSULIN ASPART [NOVOLOG] 3 ML PEN SC ×7 (07:35→21:00)
[2018-04-11 08:30] LABS: AADO2 Arterial 42.7 mmHg (7.0-24.0); Arterial Base Excess -2.1 mmol/L (-3.0-3); Arterial Blood Gas Oxygen Sat 98.4 mmHG (95.0-98.0); Arterial COHb 0.2 % (0.0-3.0); Arterial HCO3 20.9 mmol/L (22.0-26.0); Arterial MetHb 0.2 % (0.0-1.5); Arterial Total Hemglobin 9.6 g/dl (12.0-18.0); Arterial pCO2 29.6 mmhg (35-45); Blood Gas PS 10; MODE VENT - CPAP; Site A-Line
[2018-04-11] MEDS: ENOXAPARIN 40 MG/0.4 ML SYG SC (09:00)
[2018-04-11] MEDS: NICOTINE (21 MG/24 HR) PATCH TRANSDERM (09:15)
[2018-04-11] MEDS: PANTOPRAZOLE 40 MG INJ IV (09:16)
[2018-04-11] MEDS: PHENYLephrine 40 MG in DEXTROSE 5% 496 ML IV (09:38)
[2018-04-11] MEDS: METHADONE (1 MG/ML 5 ML PO UD SYG) PO (09:39)
[2018-04-11] MEDS: GABAPENTIN 300 MG CAP PO ×3 (09:55→20:55)
[2018-04-11] MEDS: DOCUSATE SODIUM 100 MG CAP PO ×2 (09:55→21:00)
[2018-04-11] MEDS: LIDOCAINE 1% (MPF) 5 ML VIAL SC ×2 (10:00→16:25)
[2018-04-11] MEDS: BALSAM PERU/CASTOR OIL 60 GM TUBE TOP (11:00)
[2018-04-11] MEDS: COLLAGENASE 5 GM (UD JAR) TOP (11:00)
[2018-04-11] MEDS: SOD CHLORIDE 0.9% 1,000 ML IV (16:37)
[2018-04-11] MEDS: HYDROCODONE/APAP (5/325) TAB PO ×2 (16:53→21:08)
[2018-04-11] MEDS: ACETAMINOPHEN 325 MG TAB PO (20:54)
[2018-04-11] MEDS: ALPRAZOLAM 0.25 MG TAB PO (20:55)
[2018-04-12] MEDS: HYDROCODONE/APAP (5/325) TAB PO ×3 (02:29→20:09)
[2018-04-12] MEDS: HYDROmorphONE 1 MG/ML SYG IV ×5 (03:03→20:56)
[2018-04-12] MEDS: PHENYLephrine 40 MG in DEXTROSE 5% 496 ML IV (04:22)
[2018-04-12] MEDS: DAPTOMYCIN 375 MG in SOD CHLORIDE 0.9% 100 ML IVPB (04:25)
[2018-04-12] MEDS: SOD CHLORIDE 0.9% 1,000 ML IV ×3 (04:25→22:09)
[2018-04-12 05:26] LABS: ADD MAN DIFF? NO
[2018-04-12 05:40] LABS: ABNORMAL IP MESSAGE 1; BASOPHILS % 0.1 % (0.0-2.0); EOSINOPHILS % 0.1 % (0.0-7.0); HEMATOCRIT 21.5 % (42.0-52.0); LYMPHOCYTES % 23.4 % (15.0-51.0); MEAN CORPUSCULAR HGB CONC 32.1 g/dl (32.0-37.0); MEAN PLATELET VOLUME 8.7 fl (7.4-10.4); MONOCYTE # 1.5 10^3/ul (0.3-0.9); MONOCYTES % 8.6 % (0.0-11.0); NEUTROPHIL # 11.4 10^3/ul (1.6-7.5); NEUTROPHILS % 67.2 % (39.0-77.0); PLATELET COUNT 251 10^3/UL (140-415); POSITIVE DIFF @See below; RED BLOOD COUNT 2.56 10^6/ul (4.70-6.10); RED CELL DISTRIBUTION WIDTH 19.6 % (11.5-14.5)
[2018-04-12 05:59] LABS: HEMOGLOBIN 6.9 g/dl (14.0-18.0)
[2018-04-12] MEDS: PANTOPRAZOLE 40 MG INJ IV (06:12)
[2018-04-12] MEDS: DEXAMETHASONE 4 MG/ML 1 ML INJ IV ×3 (06:12→22:04)
[2018-04-12 06:19] LABS: ANION GAP 5 (8-16); BLOOD UREA NITROGEN 37 mg/dl (7-20); CALCIUM 7.2 mg/dl (8.4-10.2); CARBON DIOXIDE 26 mmol/L (21-31); CHLORIDE 108 mmol/L (97-110); CREATININE 0.87 mg/dl (0.61-1.24); GLUCOSE 125 mg/dl (70-220); PHOSPHORUS 2.9 mg/dl (2.5-4.9); POTASSIUM 4.4 mmol/L (3.5-5.1); SODIUM 135 mmol/L (135-144)
[2018-04-12] MEDS: INSULIN ASPART [NOVOLOG] 3 ML PEN SC ×7 (07:35→20:55)
[2018-04-12] MEDS: GABAPENTIN 300 MG CAP PO ×3 (08:23→20:55)
[2018-04-12] MEDS: NICOTINE (21 MG/24 HR) PATCH TRANSDERM (08:23)
[2018-04-12] MEDS: COLLAGENASE 5 GM (UD JAR) TOP (08:24)
[2018-04-12] MEDS: ALPRAZOLAM 0.25 MG TAB PO (08:24)
[2018-04-12] MEDS: ENOXAPARIN 40 MG/0.4 ML SYG SC (08:27)
[2018-04-12] MEDS: DOCUSATE SODIUM 100 MG CAP PO ×2 (08:35→20:56)
[2018-04-12] MEDS: BALSAM PERU/CASTOR OIL 60 GM TUBE TOP (10:22)
[2018-04-12] MEDS: METHADONE (1 MG/ML 5 ML PO UD SYG) PO (10:22)
[2018-04-12 10:38] LABS: ANISOCYTOSIS 1+ (0-0); BAND NEUTROPHILS #M 0.6 10^3/ul (0.0-0.6); BAND NEUTROPHILS % (M) 4 % (0-4); LYMPHOCYTES #M 3.7 10^3/ul (0.8-2.9); LYMPHOCYTES % (M) 22 % (15-51); MICROCYTOSIS 1+ (0-0); MONOCYTE #M 0.3 10^3/ul (0.3-0.9); MONOCYTES % (M) 2 % (0-11); PLATELET ESTIMATE NORMAL; POIKILOCYTOSIS 1+ (0-0); SCHISTOCYTES 1+ (0-0); SEG NEUT #M 12.3 10^3/ul (1.6-7.5); SEGMENTED NEUTROPHILS (M) % 72 % (39-77); SMUDGE%M 15 % (0-0)
[2018-04-12] MEDS: ACETAMINOPHEN 325 MG TAB PO (12:30)
[2018-04-12 12:41] LABS: IMMEDIATE SPIN CROSSMATCH 1 3
[2018-04-12] MEDS: ALPRAZOLAM 0.5 MG TAB PO (15:55)
[2018-04-12] MEDS: INSULIN GLARGINE [LANTus] (100 UNITS/ML) SYG SC (20:54)
[2018-04-13] MEDS: HYDROCODONE/APAP (5/325) TAB PO ×2 (00:05→05:36)
[2018-04-13] MEDS: ALPRAZOLAM 0.5 MG TAB PO ×3 (00:17→19:47)
[2018-04-13] MEDS: HYDROmorphONE 1 MG/ML SYG IV ×4 (01:24→23:23)
[2018-04-13] MEDS: DAPTOMYCIN 375 MG in SOD CHLORIDE 0.9% 100 ML IVPB (04:28)
[2018-04-13 05:10] LABS: ADD MAN DIFF? NO
[2018-04-13 05:15] LABS: BASOPHILS % 0.1 % (0.0-2.0); EOSINOPHILS % 0.1 % (0.0-7.0); HEMATOCRIT 26.1 % (42.0-52.0); HEMOGLOBIN 8.7 g/dl (14.0-18.0); LYMPHOCYTES # 2.4 10^3/ul (0.8-2.9); LYMPHOCYTES % 19.7 % (15.0-51.0); MEAN CORPUSCULAR HEMOGLOBIN 28.2 pg (29.0-33.0); MEAN CORPUSCULAR HGB CONC 33.3 g/dl (32.0-37.0); MEAN CORPUSCULAR VOLUME 84.5 fl (82.0-101.0); MONOCYTE # 0.8 10^3/ul (0.3-0.9); MONOCYTES % 6.7 % (0.0-11.0); NEUTROPHIL # 8.9 10^3/ul (1.6-7.5); PLATELET COUNT 137 10^3/UL (140-415); RED BLOOD COUNT 3.09 10^6/ul (4.70-6.10); RED CELL DISTRIBUTION WIDTH 18.1 % (11.5-14.5)
[2018-04-13 05:15] LABS: WHITE BLOOD COUNT 12.2 10^3/ul (4.8-10.8)
[2018-04-13] MEDS: PANTOPRAZOLE 40 MG INJ IV (05:36)
[2018-04-13] MEDS: DEXAMETHASONE 4 MG/ML 1 ML INJ IV ×3 (05:36→22:37)
[2018-04-13 05:44] LABS: ANION GAP 6 (8-16); BLOOD UREA NITROGEN 33 mg/dl (7-20); CALCIUM 7.4 mg/dl (8.4-10.2); CARBON DIOXIDE 27 mmol/L (21-31); CHLORIDE 107 mmol/L (97-110); CREATININE 0.66 mg/dl (0.61-1.24); GLUCOSE 89 mg/dl (70-220); POTASSIUM 4.5 mmol/L (3.5-5.1); SODIUM 135 mmol/L (135-144)
[2018-04-13 05:45] LABS: PHOSPHORUS 2.5 mg/dl (2.5-4.9)
[2018-04-13] MEDS: INSULIN ASPART [NOVOLOG] 3 ML PEN SC ×7 (07:35→20:37)
[2018-04-13] MEDS: DOCUSATE SODIUM 100 MG CAP PO ×2 (09:00→20:30)
[2018-04-13 09:38] LABS: ADD MAN DIFF? NO
[2018-04-13 09:43] LABS: EOSINOPHILS % 0.1 % (0.0-7.0); HEMOGLOBIN 9.3 g/dl (14.0-18.0); LYMPHOCYTES # 1.7 10^3/ul (0.8-2.9); LYMPHOCYTES % 11.4 % (15.0-51.0); MEAN CORPUSCULAR HEMOGLOBIN 28.2 pg (29.0-33.0); MEAN CORPUSCULAR HGB CONC 33.2 g/dl (32.0-37.0); MEAN CORPUSCULAR VOLUME 84.8 fl (82.0-101.0); MEAN PLATELET VOLUME 8.5 fl (7.4-10.4); MONOCYTE # 0.6 10^3/ul (0.3-0.9); MONOCYTES % 4.1 % (0.0-11.0); NEUTROPHIL # 12.3 10^3/ul (1.6-7.5); NEUTROPHILS % 84.1 % (39.0-77.0); PLATELET COUNT 139 10^3/UL (140-415); RED CELL DISTRIBUTION WIDTH 17.6 % (11.5-14.5)
[2018-04-13 09:43] LABS: WHITE BLOOD COUNT 14.6 10^3/ul (4.8-10.8)
[2018-04-13] MEDS: SOD CHLORIDE 0.9% 1,000 ML IV (09:58)
[2018-04-13] MEDS: METHADONE (1 MG/ML 5 ML PO UD SYG) PO (09:59)
[2018-04-13] MEDS: GABAPENTIN 300 MG CAP PO ×3 (10:00→20:28)
[2018-04-13] MEDS: NICOTINE (21 MG/24 HR) PATCH TRANSDERM (10:01)
[2018-04-13] MEDS: COLLAGENASE 5 GM (UD JAR) TOP (10:08)
[2018-04-13] MEDS: BALSAM PERU/CASTOR OIL 60 GM TUBE TOP (10:09)
[2018-04-13] MEDS: ENOXAPARIN 40 MG/0.4 ML SYG SC (10:10)
[2018-04-13 13:33] LABS: ADD UMIC YES; UR ASCORBIC ACID NEGATIVE (NEGATIVE); UR BILIRUBIN (Dip) NEGATIVE (NEGATIVE); UR BLOOD (Dip) 1+ mg/dL (NEGATIVE); UR CLARITY CLEAR (CLEAR); UR COLOR STRAW (YELLOW); UR GLUCOSE (Dip) NEGATIVE (NEGATIVE); UR KETONES (Dip) NEGATIVE (NEGATIVE); UR LEUKOCYTE ESTERASE (Dip) NEGATIVE Leu/ul (NEGATIVE); UR NITRITE (Dip) NEGATIVE (NEGATIVE); UR RBC 1 /HPF (0-5); UR SPECIFIC GRAVITY (Dip) 1.012 (1.003-1.030); UR TOTAL PROTEIN (Dip) 3+ mg/dl (NEGATIVE); UR UROBILINOGEN (Dip) NEGATIVE (NEGATIVE); UR WBC 0 /HPF (0-5)
[2018-04-13] MEDS: ACETAMINOPHEN 325 MG TAB PO (14:49)
[2018-04-13] MEDS: MEROPENEM 1 GM/50ML(PMX) 50 ML IVPB (19:52)
[2018-04-13] MEDS: ALBUTEROL/IPRATROPIUM (NEB) 3 ML AMP HHN (20:00)
[2018-04-13] MEDS: INSULIN GLARGINE [LANTus] (100 UNITS/ML) SYG SC (20:42)
[2018-04-14] MEDS: ALPRAZOLAM 0.25 MG TAB PO ×3 (02:15→23:06)
[2018-04-14] MEDS: DAPTOMYCIN 375 MG in SOD CHLORIDE 0.9% 100 ML IVPB (04:42)
[2018-04-14] MEDS: DEXAMETHASONE 4 MG/ML 1 ML INJ IV ×3 (05:52→23:06)
[2018-04-14] MEDS: PANTOPRAZOLE 40 MG INJ IV (05:52)
[2018-04-14] MEDS: HYDROmorphONE 1 MG/ML SYG IV (05:52)
[2018-04-14 06:08] LABS: ADD MAN DIFF? NO
[2018-04-14 06:12] LABS: WHITE BLOOD COUNT 13.8 10^3/ul (4.8-10.8)
[2018-04-14 06:12] LABS: BASOPHILS % 0.1 % (0.0-2.0); EOSINOPHILS % 0.1 % (0.0-7.0); HEMATOCRIT 27.9 % (42.0-52.0); LYMPHOCYTES # 2.5 10^3/ul (0.8-2.9); LYMPHOCYTES % 18.3 % (15.0-51.0); MEAN CORPUSCULAR HEMOGLOBIN 27.5 pg (29.0-33.0); MEAN CORPUSCULAR HGB CONC 32.3 g/dl (32.0-37.0); MEAN CORPUSCULAR VOLUME 85.3 fl (82.0-101.0); MEAN PLATELET VOLUME 9.3 fl (7.4-10.4); MONOCYTE # 0.8 10^3/ul (0.3-0.9); MONOCYTES % 5.5 % (0.0-11.0); NEUTROPHIL # 10.4 10^3/ul (1.6-7.5); NEUTROPHILS % 75.5 % (39.0-77.0); PLATELET COUNT 144 10^3/UL (140-415); RED BLOOD COUNT 3.27 10^6/ul (4.70-6.10); RED CELL DISTRIBUTION WIDTH 17.2 % (11.5-14.5)
[2018-04-14 06:33] LABS: ANION GAP 5 (8-16); BLOOD UREA NITROGEN 43 mg/dl (7-20); CALCIUM 7.5 mg/dl (8.4-10.2); CARBON DIOXIDE 31 mmol/L (21-31); CHLORIDE 103 mmol/L (97-110); CREATININE 0.72 mg/dl (0.61-1.24); GLUCOSE 73 mg/dl (70-220); POTASSIUM 4.5 mmol/L (3.5-5.1); SODIUM 134 mmol/L (135-144)
[2018-04-14 06:34] LABS: LACTIC ACID 0.7 mmol/L (0.5-2.0)
[2018-04-14] MEDS: INSULIN ASPART [NOVOLOG] 3 ML PEN SC ×8 (07:56→21:23)
[2018-04-14] MEDS: DOCUSATE SODIUM 100 MG CAP PO ×2 (08:32→21:00)
[2018-04-14] MEDS: MEROPENEM 1 GM/50ML(PMX) 50 ML IVPB ×2 (08:32→20:55)
[2018-04-14] MEDS: NICOTINE (21 MG/24 HR) PATCH TRANSDERM (08:33)
[2018-04-14] MEDS: BALSAM PERU/CASTOR OIL 60 GM TUBE TOP (08:33)
[2018-04-14] MEDS: GABAPENTIN 300 MG CAP PO ×3 (08:33→20:51)
[2018-04-14] MEDS: COLLAGENASE 5 GM (UD JAR) TOP (08:33)
[2018-04-14] MEDS: ENOXAPARIN 40 MG/0.4 ML SYG SC (08:39)
[2018-04-14] MEDS: METHADONE (1 MG/ML 5 ML PO UD SYG) PO (11:47)
[2018-04-14] MEDS: HYDROmorphONE 2 MG TAB PO (17:30)
[2018-04-14] MEDS: INSULIN GLARGINE [LANTus] (100 UNITS/ML) SYG SC (21:23)
[2018-04-15] MEDS: HYDROmorphONE 2 MG TAB PO ×3 (01:02→21:33)
[2018-04-15] MEDS: DAPTOMYCIN 500 MG in SOD CHLORIDE 0.9% 100 ML IVPB (05:30)
[2018-04-15] MEDS: PANTOPRAZOLE (EC) 40 MG TAB PO (05:33)
[2018-04-15 06:35] LABS: ADD MAN DIFF? NO
[2018-04-15 06:49] LABS: WHITE BLOOD COUNT 10.6 10^3/ul (4.8-10.8)
[2018-04-15 06:49] LABS: EOSINOPHILS % 0.1 % (0.0-7.0); HEMOGLOBIN 9.5 g/dl (14.0-18.0); LYMPHOCYTES # 1.4 10^3/ul (0.8-2.9); LYMPHOCYTES % 12.9 % (15.0-51.0); MEAN CORPUSCULAR HEMOGLOBIN 27.8 pg (29.0-33.0); MEAN CORPUSCULAR HGB CONC 32.8 g/dl (32.0-37.0); MEAN CORPUSCULAR VOLUME 84.8 fl (82.0-101.0); MEAN PLATELET VOLUME 10.1 fl (7.4-10.4); MONOCYTE # 0.6 10^3/ul (0.3-0.9); MONOCYTES % 5.5 % (0.0-11.0); NEUTROPHIL # 8.6 10^3/ul (1.6-7.5); NEUTROPHILS % 80.9 % (39.0-77.0); PLATELET COUNT 154 10^3/UL (140-415); RED BLOOD COUNT 3.42 10^6/ul (4.70-6.10)
[2018-04-15 07:08] LABS: CREATINE KINASE 46 IU/L (23-200)
[2018-04-15 07:11] LABS: PHOSPHORUS 2.5 mg/dl (2.5-4.9)
[2018-04-15 07:11] LABS: MAGNESIUM 1.8 mg/dl (1.7-2.5)
[2018-04-15 07:27] LABS: ANION GAP 8 (8-16); BLOOD UREA NITROGEN 40 mg/dl (7-20); CALCIUM 7.9 mg/dl (8.4-10.2); CARBON DIOXIDE 29 mmol/L (21-31); CHLORIDE 97 mmol/L (97-110); CREATININE 0.68 mg/dl (0.61-1.24); GLUCOSE 229 mg/dl (70-220); POTASSIUM 4.7 mmol/L (3.5-5.1); SODIUM 129 mmol/L (135-144)
[2018-04-15] MEDS: INSULIN ASPART [NOVOLOG] 3 ML PEN SC ×9 (08:42→23:28)
[2018-04-15] MEDS: DEXAMETHASONE 4 MG TAB PO (08:48)
[2018-04-15] MEDS: MEROPENEM 1 GM/50ML(PMX) 50 ML IVPB ×2 (08:48→22:46)
[2018-04-15] MEDS: DOCUSATE SODIUM 100 MG CAP PO ×2 (08:49→21:32)
[2018-04-15] MEDS: GABAPENTIN 300 MG CAP PO ×3 (08:49→21:32)
[2018-04-15] MEDS: NICOTINE (21 MG/24 HR) PATCH TRANSDERM (08:49)
[2018-04-15] MEDS: ENOXAPARIN 40 MG/0.4 ML SYG SC (08:59)
[2018-04-15] MEDS: METHADONE (1 MG/ML 5 ML PO UD SYG) PO (10:26)
[2018-04-15] MEDS: COLLAGENASE 5 GM (UD JAR) TOP (10:29)
[2018-04-15] MEDS: BALSAM PERU/CASTOR OIL 60 GM TUBE TOP (10:29)
[2018-04-15] MEDS: SOD CHLORIDE 0.9% 500 ML IV (12:06)
[2018-04-15 13:03] LABS: ANION GAP 3 (8-16); BLOOD UREA NITROGEN 40 mg/dl (7-20); CALCIUM 7.8 mg/dl (8.4-10.2); CARBON DIOXIDE 33 mmol/L (21-31); CHLORIDE 98 mmol/L (97-110); CREATININE 0.68 mg/dl (0.61-1.24); GLUCOSE 104 mg/dl (70-220); POTASSIUM 4.4 mmol/L (3.5-5.1); SODIUM 130 mmol/L (135-144)
[2018-04-15 13:54] LABS: OSMOLALITY 284 mOsm/kg (280-295)
[2018-04-15] MEDS: FLUCONAZOLE 100 MG TAB PO (15:34)
[2018-04-15] MEDS ORDERED: MUPIROCIN 2% 15 GM CR TOP (21:00)
[2018-04-15] MEDS: MUPIROCIN 2% 22 GM OINT TOP (21:33)
[2018-04-15] MEDS: INSULIN GLARGINE [LANTus] (100 UNITS/ML) SYG SC (21:46)
[2018-04-15] MEDS: ALPRAZOLAM 0.25 MG TAB PO (23:08)
[2018-04-15 23:33] LABS: BLOOD UREA NITROGEN 47 mg/dl (7-20); CALCIUM 7.6 mg/dl (8.4-10.2); CARBON DIOXIDE 31 mmol/L (21-31); CHLORIDE 93 mmol/L (97-110); CREATININE 0.73 mg/dl (0.61-1.24); GLUCOSE 281 mg/dl (70-220); POTASSIUM 4.8 mmol/L (3.5-5.1)
[2018-04-15 23:42] LABS: ANION GAP 7 (8-16); SODIUM 126 mmol/L (135-144)
[2018-04-16] MEDS: PANTOPRAZOLE (EC) 40 MG TAB PO (05:59)
[2018-04-16] MEDS: DAPTOMYCIN 500 MG in SOD CHLORIDE 0.9% 100 ML IVPB (05:59)
[2018-04-16 06:15] LABS: ADD MAN DIFF? NO
[2018-04-16 06:17] LABS: BASOPHILS % 0.1 % (0.0-2.0); EOSINOPHILS # 0.1 10^3/ul (0.0-0.5); HEMATOCRIT 29.7 % (42.0-52.0); HEMOGLOBIN 9.8 g/dl (14.0-18.0); LYMPHOCYTES # 2.7 10^3/ul (0.8-2.9); LYMPHOCYTES % 23.5 % (15.0-51.0); MEAN CORPUSCULAR HEMOGLOBIN 27.8 pg (29.0-33.0); MEAN CORPUSCULAR VOLUME 84.4 fl (82.0-101.0); MEAN PLATELET VOLUME 9.4 fl (7.4-10.4); MONOCYTE # 0.9 10^3/ul (0.3-0.9); MONOCYTES % 7.6 % (0.0-11.0); NEUTROPHIL # 7.7 10^3/ul (1.6-7.5); NEUTROPHILS % 66.8 % (39.0-77.0); PLATELET COUNT 188 10^3/UL (140-415); RED BLOOD COUNT 3.52 10^6/ul (4.70-6.10); RED CELL DISTRIBUTION WIDTH 17.2 % (11.5-14.5)
[2018-04-16 06:17] LABS: WHITE BLOOD COUNT 11.5 10^3/ul (4.8-10.8)
[2018-04-16 06:42] LABS: ANION GAP 6 (8-16); BLOOD UREA NITROGEN 47 mg/dl (7-20); CALCIUM 7.9 mg/dl (8.4-10.2); CARBON DIOXIDE 33 mmol/L (21-31); CHLORIDE 98 mmol/L (97-110); CREATININE 0.68 mg/dl (0.61-1.24); GLUCOSE 79 mg/dl (70-220); POTASSIUM 4.8 mmol/L (3.5-5.1); SODIUM 132 mmol/L (135-144)
[2018-04-16] MEDS: INSULIN ASPART [NOVOLOG] 3 ML PEN SC ×8 (08:00→20:51)
[2018-04-16] MEDS: NICOTINE (21 MG/24 HR) PATCH TRANSDERM (08:31)
[2018-04-16] MEDS: MEROPENEM 1 GM/50ML(PMX) 50 ML IVPB ×2 (08:31→20:47)
[2018-04-16] MEDS: FLUCONAZOLE 100 MG TAB PO (08:32)
[2018-04-16] MEDS: ALPRAZOLAM 0.25 MG TAB PO (08:32)
[2018-04-16] MEDS: GABAPENTIN 300 MG CAP PO ×3 (08:32→20:46)
[2018-04-16] MEDS: COLLAGENASE 5 GM (UD JAR) TOP (08:32)
[2018-04-16] MEDS: MUPIROCIN 2% 22 GM OINT TOP ×2 (08:32→20:46)
[2018-04-16] MEDS: DOCUSATE SODIUM 100 MG CAP PO ×2 (08:34→20:45)
[2018-04-16] MEDS: ENOXAPARIN 40 MG/0.4 ML SYG SC (08:49)
[2018-04-16] MEDS: BALSAM PERU/CASTOR OIL 60 GM TUBE TOP (09:39)
[2018-04-16] MEDS: METHADONE (1 MG/ML 5 ML PO UD SYG) PO (11:03)
[2018-04-16] MEDS: ALBUTEROL/IPRATROPIUM (NEB) 3 ML AMP HHN (20:08)
[2018-04-16] MEDS: INSULIN GLARGINE [LANTus] (100 UNITS/ML) SYG SC (21:20)
[2018-04-17] MEDS: PANTOPRAZOLE (EC) 40 MG TAB PO (05:33)
[2018-04-17] MEDS: DAPTOMYCIN 500 MG in SOD CHLORIDE 0.9% 100 ML IVPB (05:33)
[2018-04-17] MEDS: HYDROmorphONE 2 MG TAB PO ×2 (05:40→23:05)
[2018-04-17] MEDS: INSULIN ASPART [NOVOLOG] 3 ML PEN SC ×7 (07:44→20:44)
[2018-04-17 08:56] LABS: PROCALCITONIN 0.16 ng/mL (<0.10)
[2018-04-17] MEDS: GABAPENTIN 300 MG CAP PO ×3 (09:45→20:43)
[2018-04-17] MEDS: FLUCONAZOLE 100 MG TAB PO (09:45)
[2018-04-17] MEDS: DOCUSATE SODIUM 100 MG CAP PO ×2 (09:45→20:48)
[2018-04-17] MEDS: COLLAGENASE 5 GM (UD JAR) TOP (09:46)
[2018-04-17] MEDS: METHADONE (1 MG/ML 5 ML PO UD SYG) PO (09:46)
[2018-04-17] MEDS: BALSAM PERU/CASTOR OIL 60 GM TUBE TOP (09:46)
[2018-04-17] MEDS: NICOTINE (21 MG/24 HR) PATCH TRANSDERM (09:46)
[2018-04-17] MEDS: MUPIROCIN 2% 22 GM OINT TOP ×2 (09:46→22:31)
[2018-04-17] MEDS: ENOXAPARIN 40 MG/0.4 ML SYG SC (10:03)
[2018-04-17] MEDS: ACETAMINOPHEN 325 MG TAB PO (11:59)
[2018-04-17] MEDS: INSULIN GLARGINE [LANTus] (100 UNITS/ML) SYG SC (20:43)
[2018-04-17] MEDS: ALPRAZOLAM 1 MG TAB PO (21:46)
[2018-04-18] MEDS: HYDROCODONE/APAP (5/325) TAB PO (01:44)
[2018-04-18] MEDS: HYDROmorphONE 2 MG TAB PO ×3 (04:11→21:44)
[2018-04-18] MEDS: PANTOPRAZOLE (EC) 40 MG TAB PO (06:01)
[2018-04-18] MEDS: DAPTOMYCIN 500 MG in SOD CHLORIDE 0.9% 100 ML IVPB (06:04)
[2018-04-18] MEDS: INSULIN ASPART [NOVOLOG] 3 ML PEN SC ×7 (08:00→21:00)
[2018-04-18] MEDS: DOCUSATE SODIUM 100 MG CAP PO ×2 (08:44→21:00)
[2018-04-18] MEDS: MUPIROCIN 2% 22 GM OINT TOP ×2 (08:45→21:09)
[2018-04-18] MEDS: GABAPENTIN 300 MG CAP PO ×3 (08:45→21:06)
[2018-04-18] MEDS: FLUCONAZOLE 100 MG TAB PO (08:45)
[2018-04-18] MEDS: ENOXAPARIN 40 MG/0.4 ML SYG SC (08:47)
[2018-04-18] MEDS: METHADONE (1 MG/ML 5 ML PO UD SYG) PO (08:48)
[2018-04-18] MEDS ORDERED: METHADONE 10 MG TAB PO (09:00)
[2018-04-18] MEDS: NICOTINE (21 MG/24 HR) PATCH TRANSDERM (09:30)
[2018-04-18] MEDS: COLLAGENASE 5 GM (UD JAR) TOP ×2 (09:30→21:16)
[2018-04-18 10:44] LABS: ADD MAN DIFF? NO
[2018-04-18 10:47] LABS: WHITE BLOOD COUNT 8.6 10^3/ul (4.8-10.8)
[2018-04-18 10:47] LABS: BASOPHILS % 0.1 % (0.0-2.0); EOSINOPHILS # 0.3 10^3/ul (0.0-0.5); EOSINOPHILS % 3.6 % (0.0-7.0); HEMATOCRIT 26.1 % (42.0-52.0); HEMOGLOBIN 8.4 g/dl (14.0-18.0); MEAN CORPUSCULAR HGB CONC 32.2 g/dl (32.0-37.0); MEAN PLATELET VOLUME 9.3 fl (7.4-10.4); MONOCYTE # 0.5 10^3/ul (0.3-0.9); MONOCYTES % 5.6 % (0.0-11.0); NEUTROPHIL # 5.7 10^3/ul (1.6-7.5); NEUTROPHILS % 65.8 % (39.0-77.0); PLATELET COUNT 169 10^3/UL (140-415); RED CELL DISTRIBUTION WIDTH 17.2 % (11.5-14.5)
[2018-04-18 11:15] LABS: ALANINE AMINOTRANSFERASE 47 IU/L (13-69); ALBUMIN 1.6 g/dl (3.3-4.9); ALBUMIN/GLOBULIN RATIO 0.69; ALKALINE PHOSPHATASE 135 IU/L (42-121); ANION GAP 5 (8-16); ASPARTATE AMINO TRANSFERASE 50 IU/L (15-46); BLOOD UREA NITROGEN 39 mg/dl (7-20); CALCIUM 7.3 mg/dl (8.4-10.2); CARBON DIOXIDE 31 mmol/L (21-31); CHLORIDE 99 mmol/L (97-110); CREATININE 0.66 mg/dl (0.61-1.24); GLUCOSE 111 mg/dl (70-220); POTASSIUM 3.8 mmol/L (3.5-5.1); SODIUM 131 mmol/L (135-144); TOTAL PROTEIN 3.9 g/dl (6.1-8.1)
[2018-04-18] MEDS: BALSAM PERU/CASTOR OIL 60 GM TUBE TOP ×2 (12:11→21:16)
[2018-04-18] MEDS: DEXAMETHASONE 1 MG TAB PO ×2 (14:00→22:45)
[2018-04-18] MEDS: DEXTROSE 50% 50 ML SYRINGE IV (17:37)
[2018-04-18 18:26] LABS: GLUCOSE 40 mg/dl (70-220)
[2018-04-18] MEDS: INSULIN GLARGINE [LANTus] (100 UNITS/ML) SYG SC (21:09)
[2018-04-19] MEDS: HYDROCODONE/APAP (5/325) TAB PO ×2 (00:31→03:59)
[2018-04-19] MEDS: ALPRAZOLAM 1 MG TAB PO (00:39)
[2018-04-19] MEDS: ALBUTEROL/IPRATROPIUM (NEB) 3 ML AMP HHN ×2 (01:14→21:42)
[2018-04-19] MEDS: PANTOPRAZOLE (EC) 40 MG TAB PO (05:41)
[2018-04-19] MEDS: DAPTOMYCIN 500 MG in SOD CHLORIDE 0.9% 100 ML IVPB (05:41)
[2018-04-19 06:03] LABS: ADD MAN DIFF? NO
[2018-04-19 06:10] LABS: WHITE BLOOD COUNT 6.6 10^3/ul (4.8-10.8)
[2018-04-19 06:10] LABS: ABNORMAL IP MESSAGE 1; EOSINOPHILS % 0.3 % (0.0-7.0); HEMOGLOBIN 9.2 g/dl (14.0-18.0); LYMPHOCYTES # 0.4 10^3/ul (0.8-2.9); LYMPHOCYTES % 6.4 % (15.0-51.0); MEAN CORPUSCULAR HEMOGLOBIN 27.3 pg (29.0-33.0); MEAN CORPUSCULAR HGB CONC 31.7 g/dl (32.0-37.0); MEAN CORPUSCULAR VOLUME 86.1 fl (82.0-101.0); MEAN PLATELET VOLUME 9.1 fl (7.4-10.4); MONOCYTE # 0.1 10^3/ul (0.3-0.9); MONOCYTES % 2.1 % (0.0-11.0); NEUTROPHIL # 5.9 10^3/ul (1.6-7.5); NEUTROPHILS % 89.7 % (39.0-77.0); PLATELET COUNT 175 10^3/UL (140-415); POSITIVE DIFF @See below; RED BLOOD COUNT 3.37 10^6/ul (4.70-6.10)
[2018-04-19 06:42] LABS: ANION GAP 6 (8-16); BLOOD UREA NITROGEN 25 mg/dl (7-20); CALCIUM 7.3 mg/dl (8.4-10.2); CARBON DIOXIDE 33 mmol/L (21-31); CHLORIDE 94 mmol/L (97-110); CREATININE 0.48 mg/dl (0.61-1.24); MAGNESIUM 1.9 mg/dl (1.7-2.5); PHOSPHORUS 3.4 mg/dl (2.5-4.9); POTASSIUM 4.8 mmol/L (3.5-5.1); SODIUM 128 mmol/L (135-144)
[2018-04-19 06:49] LABS: GLUCOSE 449 mg/dl (70-220)
[2018-04-19] MEDS: INSULIN ASPART [NOVOLOG] 3 ML PEN SC ×8 (07:06→20:40)
[2018-04-19] MEDS: SOD CHLORIDE 0.9% 1,000 ML IV (08:48)
[2018-04-19] MEDS: DEXAMETHASONE 2 MG TAB PO ×2 (10:21→20:47)
[2018-04-19] MEDS: DOCUSATE SODIUM 100 MG CAP PO ×2 (10:21→20:26)
[2018-04-19] MEDS: GABAPENTIN 300 MG CAP PO ×3 (10:21→20:25)
[2018-04-19 10:22] LABS: GLUCOSE 402 mg/dl (70-220)
[2018-04-19] MEDS: NICOTINE (21 MG/24 HR) PATCH TRANSDERM (10:22)
[2018-04-19] MEDS: MUPIROCIN 2% 22 GM OINT TOP ×2 (10:22→20:26)
[2018-04-19] MEDS: ENOXAPARIN 40 MG/0.4 ML SYG SC (10:27)
[2018-04-19] MEDS: METHADONE (1 MG/ML 5 ML PO UD SYG) PO (10:41)
[2018-04-19 12:41] LABS: ANION GAP 4 (8-16); BLOOD UREA NITROGEN 22 mg/dl (7-20); CALCIUM 7.4 mg/dl (8.4-10.2); CARBON DIOXIDE 34 mmol/L (21-31); CHLORIDE 98 mmol/L (97-110); CREATININE 0.48 mg/dl (0.61-1.24); GLUCOSE 282 mg/dl (70-220); POTASSIUM 4.3 mmol/L (3.5-5.1); SODIUM 132 mmol/L (135-144)
[2018-04-19] MEDS: HYDROmorphONE 2 MG TAB PO (20:03)
[2018-04-19] MEDS: INSULIN GLARGINE [LANTus] (100 UNITS/ML) SYG SC (20:24)
[2018-04-19] MEDS: GUAIFENESIN/DM 5ML CUP PO (23:27)
[2018-04-20] MEDS: HYDROmorphONE 2 MG TAB PO (00:38)
[2018-04-20] MEDS: PIPER-TAZO 3.375 GM IV (PMX) 100 ML IVPB ×5 (02:02→23:40)
[2018-04-20] MEDS: ALBUTEROL/IPRATROPIUM (NEB) 3 ML AMP HHN ×2 (04:13→19:50)
[2018-04-20] MEDS: HYDROCODONE/APAP (5/325) TAB PO (04:41)
[2018-04-20] MEDS: DAPTOMYCIN 500 MG in SOD CHLORIDE 0.9% 100 ML IVPB (05:40)
[2018-04-20] MEDS: BALSAM PERU/CASTOR OIL 60 GM TUBE TOP ×2 (05:45→08:16)
[2018-04-20] MEDS: PANTOPRAZOLE (EC) 40 MG TAB PO (06:36)
[2018-04-20 06:57] LABS: ADD MAN DIFF? NO
[2018-04-20 06:59] LABS: WHITE BLOOD COUNT 7.8 10^3/ul (4.8-10.8)
[2018-04-20 06:59] LABS: BASOPHILS % 0.1 % (0.0-2.0); EOSINOPHILS # 0.1 10^3/ul (0.0-0.5); EOSINOPHILS % 1.8 % (0.0-7.0); HEMATOCRIT 29.2 % (42.0-52.0); HEMOGLOBIN 9.3 g/dl (14.0-18.0); LYMPHOCYTES # 1.2 10^3/ul (0.8-2.9); LYMPHOCYTES % 15.2 % (15.0-51.0); MEAN CORPUSCULAR HEMOGLOBIN 27.8 pg (29.0-33.0); MEAN CORPUSCULAR HGB CONC 31.8 g/dl (32.0-37.0); MEAN CORPUSCULAR VOLUME 87.2 fl (82.0-101.0); MEAN PLATELET VOLUME 8.9 fl (7.4-10.4); MONOCYTE # 0.4 10^3/ul (0.3-0.9); MONOCYTES % 4.9 % (0.0-11.0); NEUTROPHIL # 6.1 10^3/ul (1.6-7.5); NEUTROPHILS % 77.4 % (39.0-77.0); PLATELET COUNT 213 10^3/UL (140-415); RED BLOOD COUNT 3.35 10^6/ul (4.70-6.10); RED CELL DISTRIBUTION WIDTH 16.4 % (11.5-14.5)
[2018-04-20 07:19] LABS: ANION GAP 4 (8-16); BLOOD UREA NITROGEN 22 mg/dl (7-20); CALCIUM 7.4 mg/dl (8.4-10.2); CARBON DIOXIDE 37 mmol/L (21-31); CHLORIDE 97 mmol/L (97-110); CREATININE 0.49 mg/dl (0.61-1.24); GLUCOSE 237 mg/dl (70-220); MAGNESIUM 2.2 mg/dl (1.7-2.5); PHOSPHORUS 2.7 mg/dl (2.5-4.9); POTASSIUM 5.1 mmol/L (3.5-5.1); SODIUM 133 mmol/L (135-144)
[2018-04-20] MEDS: COLLAGENASE 5 GM (UD JAR) TOP (08:16)
[2018-04-20] MEDS: DEXAMETHASONE 2 MG TAB PO ×2 (08:17→20:25)
[2018-04-20] MEDS: DOCUSATE SODIUM 100 MG CAP PO ×3 (08:17→20:45)
[2018-04-20] MEDS: MUPIROCIN 2% 22 GM OINT TOP ×2 (08:17→20:26)
[2018-04-20] MEDS: GABAPENTIN 300 MG CAP PO ×3 (08:17→20:25)
[2018-04-20] MEDS: METHADONE (1 MG/ML 5 ML PO UD SYG) PO (08:23)
[2018-04-20] MEDS: NICOTINE (21 MG/24 HR) PATCH TRANSDERM (08:25)
[2018-04-20] MEDS: INSULIN ASPART [NOVOLOG] 3 ML PEN SC ×7 (08:37→20:35)
[2018-04-20] MEDS: ENOXAPARIN 40 MG/0.4 ML SYG SC (08:38)
[2018-04-20] MEDS: ALPRAZOLAM 1 MG TAB PO ×2 (11:41→20:26)
[2018-04-20] MEDS: INSULIN GLARGINE [LANTus] (100 UNITS/ML) SYG SC (20:30)
[2018-04-20] MEDS: GUAIFENESIN/DM 5ML CUP PO (20:33)
[2018-04-21] MEDS: DAPTOMYCIN 500 MG in SOD CHLORIDE 0.9% 100 ML IVPB (05:17)
[2018-04-21] MEDS: PIPER-TAZO 3.375 GM IV (PMX) 100 ML IVPB ×3 (06:06→17:07)
[2018-04-21] MEDS: PANTOPRAZOLE (EC) 40 MG TAB PO (06:10)
[2018-04-21 06:59] LABS: ADD MAN DIFF? NO
[2018-04-21 07:07] LABS: EOSINOPHILS # 0.1 10^3/ul (0.0-0.5); EOSINOPHILS % 1.9 % (0.0-7.0); HEMATOCRIT 28.6 % (42.0-52.0); HEMOGLOBIN 9.1 g/dl (14.0-18.0); LYMPHOCYTES # 1.7 10^3/ul (0.8-2.9); LYMPHOCYTES % 24.2 % (15.0-51.0); MEAN CORPUSCULAR HEMOGLOBIN 27.9 pg (29.0-33.0); MEAN CORPUSCULAR HGB CONC 31.8 g/dl (32.0-37.0); MEAN CORPUSCULAR VOLUME 87.7 fl (82.0-101.0); MEAN PLATELET VOLUME 8.9 fl (7.4-10.4); MONOCYTE # 0.5 10^3/ul (0.3-0.9); NEUTROPHIL # 4.6 10^3/ul (1.6-7.5); NEUTROPHILS % 66.5 % (39.0-77.0); PLATELET COUNT 205 10^3/UL (140-415); RED BLOOD COUNT 3.26 10^6/ul (4.70-6.10); RED CELL DISTRIBUTION WIDTH 16.7 % (11.5-14.5)
[2018-04-21 07:07] LABS: WHITE BLOOD COUNT 6.9 10^3/ul (4.8-10.8)
[2018-04-21] MEDS: INSULIN ASPART [NOVOLOG] 3 ML PEN SC ×7 (08:00→21:00)
[2018-04-21 08:02] LABS: ANION GAP 3 (8-16); BLOOD UREA NITROGEN 20 mg/dl (7-20); CALCIUM 7.6 mg/dl (8.4-10.2); CARBON DIOXIDE 39 mmol/L (21-31); CHLORIDE 98 mmol/L (97-110); CREATININE 0.57 mg/dl (0.61-1.24); GLUCOSE 79 mg/dl (70-220); PHOSPHORUS 3.1 mg/dl (2.5-4.9); POTASSIUM 4.7 mmol/L (3.5-5.1); SODIUM 135 mmol/L (135-144)
[2018-04-21] MEDS: DOCUSATE SODIUM 100 MG CAP PO ×2 (08:47→20:59)
[2018-04-21] MEDS: DEXAMETHASONE 1 MG TAB PO (08:47)
[2018-04-21] MEDS: GABAPENTIN 300 MG CAP PO ×3 (08:47→20:58)
[2018-04-21] MEDS: NICOTINE (21 MG/24 HR) PATCH TRANSDERM (08:47)
[2018-04-21] MEDS: METHADONE (1 MG/ML 5 ML PO UD SYG) PO (08:47)
[2018-04-21] MEDS: BALSAM PERU/CASTOR OIL 60 GM TUBE TOP (08:47)
[2018-04-21] MEDS: COLLAGENASE 5 GM (UD JAR) TOP (08:48)
[2018-04-21] MEDS: MUPIROCIN 2% 22 GM OINT TOP ×2 (08:48→21:11)
[2018-04-21] MEDS: ENOXAPARIN 40 MG/0.4 ML SYG SC (08:51)
[2018-04-21] MEDS: ALPRAZOLAM 1 MG TAB PO ×3 (09:06→21:50)
[2018-04-21] MEDS: BARIUM SULFATE 135 ML (E-Z HD) PO (10:21)
[2018-04-21] MEDS: ALBUTEROL/IPRATROPIUM (NEB) 3 ML AMP HHN ×2 (13:42→19:58)
[2018-04-21] MEDS: GUAIFENESIN/DM 5ML CUP PO (18:12)
[2018-04-21] MEDS: BENZONATATE 100 MG CAP PO (20:59)
[2018-04-21] MEDS: INSULIN GLARGINE [LANTus] (100 UNITS/ML) SYG SC (21:12)
[2018-04-21] MEDS: HYDROCODONE/APAP (5/325) TAB PO (21:56)
[2018-04-22] MEDS: PIPER-TAZO 3.375 GM IV (PMX) 100 ML IVPB ×4 (00:12→17:31)
[2018-04-22] MEDS: HYDROCODONE/APAP (5/325) TAB PO ×4 (03:29→22:02)
[2018-04-22] MEDS: PANTOPRAZOLE (EC) 40 MG TAB PO (05:46)
[2018-04-22 06:01] LABS: ADD MAN DIFF? NO
[2018-04-22 06:04] LABS: BASOPHILS % 0.1 % (0.0-2.0); EOSINOPHILS # 0.4 10^3/ul (0.0-0.5); EOSINOPHILS % 4.8 % (0.0-7.0); HEMATOCRIT 27.4 % (42.0-52.0); HEMOGLOBIN 8.7 g/dl (14.0-18.0); LYMPHOCYTES # 3.4 10^3/ul (0.8-2.9); LYMPHOCYTES % 40.8 % (15.0-51.0); MEAN CORPUSCULAR HEMOGLOBIN 27.8 pg (29.0-33.0); MEAN CORPUSCULAR HGB CONC 31.8 g/dl (32.0-37.0); MEAN CORPUSCULAR VOLUME 87.5 fl (82.0-101.0); MEAN PLATELET VOLUME 8.5 fl (7.4-10.4); MONOCYTE # 0.7 10^3/ul (0.3-0.9); MONOCYTES % 7.9 % (0.0-11.0); NEUTROPHIL # 3.8 10^3/ul (1.6-7.5); NEUTROPHILS % 45.8 % (39.0-77.0); PLATELET COUNT 216 10^3/UL (140-415); RED BLOOD COUNT 3.13 10^6/ul (4.70-6.10); RED CELL DISTRIBUTION WIDTH 16.5 % (11.5-14.5)
[2018-04-22 06:04] LABS: WHITE BLOOD COUNT 8.2 10^3/ul (4.8-10.8)
[2018-04-22] MEDS: DAPTOMYCIN 500 MG in SOD CHLORIDE 0.9% 100 ML IVPB (06:27)
[2018-04-22 06:52] LABS: BLOOD UREA NITROGEN 25 mg/dl (7-20); CALCIUM 7.7 mg/dl (8.4-10.2); CHLORIDE 97 mmol/L (97-110); CREATININE 0.63 mg/dl (0.61-1.24); MAGNESIUM 1.9 mg/dl (1.7-2.5); PHOSPHORUS 3.2 mg/dl (2.5-4.9); POTASSIUM 4.1 mmol/L (3.5-5.1); SODIUM 135 mmol/L (135-144)
[2018-04-22 07:06] LABS: CREATINE KINASE 35 IU/L (23-200)
[2018-04-22 07:09] LABS: ANION GAP 1 (8-16)
[2018-04-22 07:11] LABS: CARBON DIOXIDE 41 mmol/L (21-31); GLUCOSE 48 mg/dl (70-220)
[2018-04-22] MEDS: INSULIN ASPART [NOVOLOG] 3 ML PEN SC ×6 (08:00→20:51)
[2018-04-22] MEDS: DOCUSATE SODIUM 100 MG CAP PO ×2 (09:00→20:49)
[2018-04-22] MEDS: METHADONE (1 MG/ML 5 ML PO UD SYG) PO (09:11)
[2018-04-22] MEDS: DEXAMETHASONE 1 MG TAB PO (09:11)
[2018-04-22] MEDS: COLLAGENASE 5 GM (UD JAR) TOP (09:12)
[2018-04-22] MEDS: GABAPENTIN 300 MG CAP PO ×3 (09:12→20:49)
[2018-04-22] MEDS: ENOXAPARIN 40 MG/0.4 ML SYG SC (09:12)
[2018-04-22] MEDS: MUPIROCIN 2% 22 GM OINT TOP ×2 (09:13→20:49)
[2018-04-22] MEDS: BALSAM PERU/CASTOR OIL 60 GM TUBE TOP (09:13)
[2018-04-22] MEDS: NICOTINE (21 MG/24 HR) PATCH TRANSDERM (09:13)
[2018-04-22] MEDS: GUAIFENESIN/DM 5ML CUP PO (15:05)
[2018-04-22] MEDS: ALPRAZOLAM 1 MG TAB PO (18:18)
[2018-04-22] MEDS: INSULIN GLARGINE [LANTus] (100 UNITS/ML) SYG SC (20:51)
[2018-04-23] MEDS: HYDROCODONE/APAP (5/325) TAB PO (01:53)
[2018-04-23] MEDS: PIPER-TAZO 3.375 GM IV (PMX) 100 ML IVPB ×4 (05:17→17:41)
[2018-04-23] MEDS: DAPTOMYCIN 500 MG in SOD CHLORIDE 0.9% 100 ML IVPB (05:51)
[2018-04-23] MEDS: PANTOPRAZOLE (EC) 40 MG TAB PO (05:52)
[2018-04-23] MEDS: INSULIN ASPART [NOVOLOG] 3 ML PEN SC ×7 (08:00→20:56)
[2018-04-23] MEDS: ENOXAPARIN 40 MG/0.4 ML SYG SC (09:00)
[2018-04-23] MEDS: DEXTROSE 50% 50 ML SYRINGE IV (09:04)
[2018-04-23] MEDS: MUPIROCIN 2% 22 GM OINT TOP ×2 (09:11→20:47)
[2018-04-23] MEDS: BALSAM PERU/CASTOR OIL 60 GM TUBE TOP (09:11)
[2018-04-23] MEDS: COLLAGENASE 5 GM (UD JAR) TOP (09:12)
[2018-04-23] MEDS: METHADONE (1 MG/ML 5 ML PO UD SYG) PO (09:14)
[2018-04-23] MEDS: DOCUSATE SODIUM 100 MG CAP PO ×2 (09:14→20:55)
[2018-04-23] MEDS: GABAPENTIN 300 MG CAP PO ×3 (09:14→20:47)
[2018-04-23] MEDS: NICOTINE (21 MG/24 HR) PATCH TRANSDERM (09:15)
[2018-04-23 10:58] LABS: GLUCOSE 84 mg/dl (70-220)
[2018-04-23] MEDS: ALPRAZOLAM 1 MG TAB PO ×2 (16:14)
[2018-04-23] MEDS: GUAIFENESIN/DM 5ML CUP PO (16:20)
[2018-04-23] MEDS: ALBUTEROL/IPRATROPIUM (NEB) 3 ML AMP HHN ×2 (17:50→21:31)
[2018-04-23] MEDS ORDERED: INSULIN ASPART [NOVOLOG] 3 ML PEN SC (18:00)
[2018-04-23] MEDS: BENZONATATE 100 MG CAP PO (20:47)
[2018-04-23] MEDS: INSULIN GLARGINE [LANTus] (100 UNITS/ML) SYG SC (20:49)
[2018-04-23] MEDS: ACETAMINOPHEN 325 MG TAB PO (21:00)
[2018-04-24] MEDS: PIPER-TAZO 3.375 GM IV (PMX) 100 ML IVPB ×5 (00:15→23:41)
[2018-04-24] MEDS: ACETYLCYSTEINE 20% 4 ML VIAL NEB ×4 (01:00→20:46)
[2018-04-24] MEDS: ALTEPLASE (CATHFLO) 2 MG INJ CATHETER (04:18)
[2018-04-24] MEDS: DAPTOMYCIN 500 MG in SOD CHLORIDE 0.9% 100 ML IVPB (06:09)
[2018-04-24] MEDS: PANTOPRAZOLE (EC) 40 MG TAB PO (06:16)
[2018-04-24] MEDS: ALPRAZOLAM 1 MG TAB PO ×3 (06:18→23:41)
[2018-04-24 06:44] LABS: ADD MAN DIFF? NO
[2018-04-24 06:49] LABS: WHITE BLOOD COUNT 7.9 10^3/ul (4.8-10.8)
[2018-04-24 06:49] LABS: BASOPHILS % 0.3 % (0.0-2.0); EOSINOPHILS # 0.4 10^3/ul (0.0-0.5); EOSINOPHILS % 4.5 % (0.0-7.0); HEMATOCRIT 28.7 % (42.0-52.0); LYMPHOCYTES # 2.7 10^3/ul (0.8-2.9); LYMPHOCYTES % 33.4 % (15.0-51.0); MEAN CORPUSCULAR HEMOGLOBIN 27.5 pg (29.0-33.0); MEAN CORPUSCULAR HGB CONC 31.4 g/dl (32.0-37.0); MEAN CORPUSCULAR VOLUME 87.8 fl (82.0-101.0); MEAN PLATELET VOLUME 8.2 fl (7.4-10.4); MONOCYTE # 0.4 10^3/ul (0.3-0.9); MONOCYTES % 4.5 % (0.0-11.0); NEUTROPHIL # 4.5 10^3/ul (1.6-7.5); PLATELET COUNT 223 10^3/UL (140-415); RED BLOOD COUNT 3.27 10^6/ul (4.70-6.10); RED CELL DISTRIBUTION WIDTH 16.2 % (11.5-14.5)
[2018-04-24 07:10] LABS: BLOOD UREA NITROGEN 22 mg/dl (7-20); CALCIUM 7.7 mg/dl (8.4-10.2); CHLORIDE 98 mmol/L (97-110); SODIUM 137 mmol/L (135-144)
[2018-04-24 07:17] LABS: ANION GAP 3 (8-16)
[2018-04-24 07:19] LABS: PHOSPHORUS 4.4 mg/dl (2.5-4.9)
[2018-04-24 07:19] LABS: MAGNESIUM 1.9 mg/dl (1.7-2.5)
[2018-04-24 07:24] LABS: CARBON DIOXIDE 40 mmol/L (21-31)
[2018-04-24 07:27] LABS: GLUCOSE 58 mg/dl (70-220)
[2018-04-24] MEDS: INSULIN ASPART [NOVOLOG] 3 ML PEN SC ×7 (07:30→20:32)
[2018-04-24] MEDS: MUPIROCIN 2% 22 GM OINT TOP ×2 (08:47→20:29)
[2018-04-24] MEDS: NICOTINE (21 MG/24 HR) PATCH TRANSDERM (08:47)
[2018-04-24] MEDS: BALSAM PERU/CASTOR OIL 60 GM TUBE TOP (08:47)
[2018-04-24] MEDS: COLLAGENASE 5 GM (UD JAR) TOP (08:47)
[2018-04-24] MEDS: GABAPENTIN 300 MG CAP PO ×3 (08:48→20:29)
[2018-04-24] MEDS: ENOXAPARIN 40 MG/0.4 ML SYG SC (08:49)
[2018-04-24] MEDS: METHADONE (1 MG/ML 5 ML PO UD SYG) PO (08:50)
[2018-04-24] MEDS: DOCUSATE SODIUM 10 MG/ML (10ML CUP) PO ×2 (08:55→20:29)
[2018-04-24] MEDS: HYDROCODONE/APAP (5/325) TAB PO (18:44)
[2018-04-24] MEDS: IBUPROFEN 600 MG TAB PO (20:30)
[2018-04-24] MEDS: INSULIN GLARGINE [LANTus] (100 UNITS/ML) SYG SC (20:31)
[2018-04-25] MEDS: ACETYLCYSTEINE 20% 4 ML VIAL NEB ×4 (02:00→20:44)
[2018-04-25] MEDS: PIPER-TAZO 3.375 GM IV (PMX) 100 ML IVPB ×3 (04:52→17:49)
[2018-04-25] MEDS: PANTOPRAZOLE (EC) 40 MG TAB PO (04:52)
[2018-04-25] MEDS: DAPTOMYCIN 500 MG in SOD CHLORIDE 0.9% 100 ML IVPB (04:52)
[2018-04-25] MEDS: INSULIN ASPART [NOVOLOG] 3 ML PEN SC ×7 (08:00→20:19)
[2018-04-25] MEDS: GABAPENTIN 300 MG CAP PO ×3 (08:47→20:00)
[2018-04-25] MEDS: MUPIROCIN 2% 22 GM OINT TOP ×2 (08:47→20:00)
[2018-04-25] MEDS: COLLAGENASE 5 GM (UD JAR) TOP (08:47)
[2018-04-25] MEDS: BALSAM PERU/CASTOR OIL 60 GM TUBE TOP (08:47)
[2018-04-25] MEDS: ENOXAPARIN 40 MG/0.4 ML SYG SC (08:51)
[2018-04-25] MEDS: METHADONE (1 MG/ML 5 ML PO UD SYG) PO (08:53)
[2018-04-25] MEDS: NICOTINE (21 MG/24 HR) PATCH TRANSDERM (08:54)
[2018-04-25] MEDS: DOCUSATE SODIUM 10 MG/ML (10ML CUP) PO ×2 (09:00→20:19)
[2018-04-25] MEDS: ALBUTEROL/IPRATROPIUM (NEB) 3 ML AMP HHN ×2 (09:23→14:14)
[2018-04-25] MEDS: ALPRAZOLAM 1 MG TAB PO ×2 (10:07→16:17)
[2018-04-25] MEDS: HYDROCODONE/APAP (5/325) TAB PO ×3 (12:13→21:47)
[2018-04-25] MEDS: IBUPROFEN 600 MG TAB PO (19:55)
[2018-04-25] MEDS: INSULIN GLARGINE [LANTus] (100 UNITS/ML) SYG SC (20:02)
[2018-04-26] MEDS: ACETYLCYSTEINE 20% 4 ML VIAL NEB ×4 (02:09→21:51)
[2018-04-26] MEDS: HYDROCODONE/APAP (5/325) TAB PO ×3 (02:24→23:28)
[2018-04-26] MEDS: DAPTOMYCIN 500 MG in SOD CHLORIDE 0.9% 100 ML IVPB (05:28)
[2018-04-26] MEDS: PIPER-TAZO 3.375 GM IV (PMX) 100 ML IVPB ×5 (06:21→23:28)
[2018-04-26] MEDS: PANTOPRAZOLE (EC) 40 MG TAB PO (06:21)
[2018-04-26] MEDS: ALBUTEROL/IPRATROPIUM (NEB) 3 ML AMP HHN (07:47)
[2018-04-26] MEDS: INSULIN ASPART [NOVOLOG] 3 ML PEN SC ×5 (09:08→20:30)
[2018-04-26] MEDS: GABAPENTIN 300 MG CAP PO ×3 (09:14→20:25)
[2018-04-26] MEDS: DOCUSATE SODIUM 10 MG/ML (10ML CUP) PO ×2 (09:14→20:31)
[2018-04-26] MEDS: BALSAM PERU/CASTOR OIL 60 GM TUBE TOP (09:15)
[2018-04-26] MEDS: MUPIROCIN 2% 22 GM OINT TOP ×2 (09:15→20:24)
[2018-04-26] MEDS: COLLAGENASE 5 GM (UD JAR) TOP (09:15)
[2018-04-26] MEDS: NICOTINE (21 MG/24 HR) PATCH TRANSDERM (09:15)
[2018-04-26] MEDS: METHADONE (1 MG/ML 5 ML PO UD SYG) PO (09:17)
[2018-04-26] MEDS: ENOXAPARIN 40 MG/0.4 ML SYG SC (09:42)
[2018-04-26] MEDS: ACCU-CHEK XX ×3 (11:30→21:00)
[2018-04-26] MEDS: ALPRAZOLAM 1 MG TAB PO ×2 (12:36→18:49)
[2018-04-26] MEDS: metFORMIN 500 MG TAB PO (17:19)
[2018-04-26] MEDS: ACETAMINOPHEN 325 MG TAB PO (20:36)
[2018-04-27] MEDS: ALPRAZOLAM 1 MG TAB PO ×2 (00:51→18:40)
[2018-04-27] MEDS: ACETYLCYSTEINE 20% 4 ML VIAL NEB ×4 (02:00→20:26)
[2018-04-27] MEDS: DAPTOMYCIN 500 MG in SOD CHLORIDE 0.9% 100 ML IVPB (05:31)
[2018-04-27] MEDS: PANTOPRAZOLE (EC) 40 MG TAB PO (05:31)
[2018-04-27] MEDS: HYDROCODONE/APAP (5/325) TAB PO ×2 (05:31→18:40)
[2018-04-27] MEDS: ACCU-CHEK XX ×4 (07:00→21:00)
[2018-04-27] MEDS: ALBUTEROL/IPRATROPIUM (NEB) 3 ML AMP HHN (08:01)
[2018-04-27] MEDS: SOD CHLORIDE 0.9% 250 ML IV ×2 (08:33→10:36)
[2018-04-27] MEDS: INSULIN ASPART [NOVOLOG] 3 ML PEN SC ×4 (08:36→20:22)
[2018-04-27] MEDS: metFORMIN 500 MG TAB PO ×2 (08:37→17:24)
[2018-04-27] MEDS: GABAPENTIN 300 MG CAP PO ×3 (08:37→20:16)
[2018-04-27] MEDS: ENOXAPARIN 40 MG/0.4 ML SYG SC (08:37)
[2018-04-27] MEDS: DOCUSATE SODIUM 10 MG/ML (10ML CUP) PO ×2 (08:44→20:16)
[2018-04-27] MEDS: NICOTINE (21 MG/24 HR) PATCH TRANSDERM (09:00)
[2018-04-27] MEDS: COLLAGENASE 5 GM (UD JAR) TOP (09:00)
[2018-04-27] MEDS: METHADONE (1 MG/ML 5 ML PO UD SYG) PO ×2 (09:00→16:09)
[2018-04-27] MEDS: BALSAM PERU/CASTOR OIL 60 GM TUBE TOP (09:00)
[2018-04-27] MEDS: MUPIROCIN 2% 22 GM OINT TOP ×2 (09:00→20:16)
[2018-04-27 09:06] LABS: Allen Test ACCEPTAB; Arterial Base Excess 8.4 mmol/L (-3.0-3); Arterial Blood Gas Oxygen Sat 89.2 mmHG (95.0-98.0); Arterial COHb 0 % (0.0-3.0); Arterial Fraction of Oxyhgb 88.9 % (93.0-99.0); Arterial HCO3 35.4 mmol/L (22.0-26.0); Arterial MetHb 0.3 % (0.0-1.5); Arterial Total Hemglobin 10.8 g/dl (12.0-18.0); MODE NASAL CANNULA; Site Left Radial
[2018-04-28] MEDS: ACETYLCYSTEINE 20% 4 ML VIAL NEB ×4 (02:12→19:34)
[2018-04-28] MEDS: ALPRAZOLAM 1 MG TAB PO ×2 (02:29→18:13)
[2018-04-28] MEDS: PANTOPRAZOLE (EC) 40 MG TAB PO (06:04)
[2018-04-28] MEDS: DAPTOMYCIN 500 MG in SOD CHLORIDE 0.9% 100 ML IVPB (06:05)
[2018-04-28] MEDS: ACCU-CHEK XX ×4 (07:00→21:00)
[2018-04-28 07:40] LABS: ADD MAN DIFF? NO
[2018-04-28 07:49] LABS: BASOPHILS % 0.2 % (0.0-2.0); EOSINOPHILS # 0.3 10^3/ul (0.0-0.5); HEMATOCRIT 27.3 % (42.0-52.0); HEMOGLOBIN 8.7 g/dl (14.0-18.0); LYMPHOCYTES # 2.1 10^3/ul (0.8-2.9); LYMPHOCYTES % 24.9 % (15.0-51.0); MEAN CORPUSCULAR HEMOGLOBIN 27.7 pg (29.0-33.0); MEAN CORPUSCULAR HGB CONC 31.9 g/dl (32.0-37.0); MEAN CORPUSCULAR VOLUME 86.9 fl (82.0-101.0); MEAN PLATELET VOLUME 8.4 fl (7.4-10.4); MONOCYTE # 0.9 10^3/ul (0.3-0.9); MONOCYTES % 10.3 % (0.0-11.0); PLATELET COUNT 222 10^3/UL (140-415); RED BLOOD COUNT 3.14 10^6/ul (4.70-6.10); RED CELL DISTRIBUTION WIDTH 16.2 % (11.5-14.5)
[2018-04-28 07:49] LABS: WHITE BLOOD COUNT 8.3 10^3/ul (4.8-10.8)
[2018-04-28] MEDS: INSULIN ASPART [NOVOLOG] 3 ML PEN SC ×4 (08:00→20:41)
[2018-04-28 08:08] LABS: BLOOD UREA NITROGEN 25 mg/dl (7-20); CARBON DIOXIDE 35 mmol/L (21-31); GLUCOSE 117 mg/dl (70-220); POTASSIUM 4.3 mmol/L (3.5-5.1)
[2018-04-28] MEDS: LACTATED RINGER'S 1,000 ML IV (08:21)
[2018-04-28] MEDS: NICOTINE (21 MG/24 HR) PATCH TRANSDERM (08:24)
[2018-04-28] MEDS: DOCUSATE SODIUM 10 MG/ML (10ML CUP) PO ×2 (08:24→20:39)
[2018-04-28] MEDS: MUPIROCIN 2% 22 GM OINT TOP ×2 (08:25→20:39)
[2018-04-28] MEDS: GABAPENTIN 300 MG CAP PO ×3 (08:25→20:38)
[2018-04-28] MEDS: COLLAGENASE 5 GM (UD JAR) TOP (08:25)
[2018-04-28] MEDS: BALSAM PERU/CASTOR OIL 60 GM TUBE TOP (08:25)
[2018-04-28] MEDS: metFORMIN 500 MG TAB PO ×2 (08:25→18:03)
[2018-04-28] MEDS: ENOXAPARIN 40 MG/0.4 ML SYG SC (08:26)
[2018-04-28 08:27] LABS: ANION GAP 1 (8-16); CALCIUM 7.4 mg/dl (8.4-10.2); CHLORIDE 99 mmol/L (97-110); SODIUM 131 mmol/L (135-144)
[2018-04-28 08:28] LABS: PHOSPHORUS 2.9 mg/dl (2.5-4.9)
[2018-04-28] MEDS: ALBUTEROL/IPRATROPIUM (NEB) 3 ML AMP HHN ×3 (08:40→19:34)
[2018-04-28] MEDS: METHADONE (1 MG/ML 5 ML PO UD SYG) PO (09:39)
[2018-04-28] MEDS: ACETAMINOPHEN 325 MG TAB PO (22:09)
[2018-04-29] MEDS: ALPRAZOLAM 1 MG TAB PO ×3 (00:34→16:11)
[2018-04-29] MEDS: ACETYLCYSTEINE 20% 4 ML VIAL NEB ×4 (02:00→19:14)
[2018-04-29] MEDS: PANTOPRAZOLE (EC) 40 MG TAB PO (05:44)
[2018-04-29] MEDS: DAPTOMYCIN 500 MG in SOD CHLORIDE 0.9% 100 ML IVPB (05:44)
[2018-04-29] MEDS: ALBUTEROL/IPRATROPIUM (NEB) 3 ML AMP HHN ×2 (07:42→19:14)
[2018-04-29] MEDS: INSULIN ASPART [NOVOLOG] 3 ML PEN SC ×4 (08:00→20:37)
[2018-04-29 08:03] LABS: CREATINE KINASE < 20 IU/L (23-200)
[2018-04-29] MEDS: ACCU-CHEK XX ×4 (08:36→21:00)
[2018-04-29] MEDS: ENOXAPARIN 40 MG/0.4 ML SYG SC (08:42)
[2018-04-29] MEDS: DOCUSATE SODIUM 10 MG/ML (10ML CUP) PO ×2 (09:16→20:39)
[2018-04-29] MEDS: metFORMIN 500 MG TAB PO ×2 (09:16→17:36)
[2018-04-29] MEDS: GABAPENTIN 300 MG CAP PO ×3 (09:16→20:39)
[2018-04-29] MEDS: METHADONE (1 MG/ML 5 ML PO UD SYG) PO (09:18)
[2018-04-29] MEDS: NICOTINE (21 MG/24 HR) PATCH TRANSDERM (09:29)
[2018-04-29] MEDS: COLLAGENASE 5 GM (UD JAR) TOP (11:30)
[2018-04-29] MEDS: BALSAM PERU/CASTOR OIL 60 GM TUBE TOP (13:33)
[2018-04-29] MEDS: MUPIROCIN 2% 22 GM OINT TOP ×2 (16:13→20:39)
[2018-04-30] MEDS: ACETYLCYSTEINE 20% 4 ML VIAL NEB ×4 (01:10→19:52)
[2018-04-30] MEDS: ALBUTEROL/IPRATROPIUM (NEB) 3 ML AMP HHN ×4 (01:10→19:51)
[2018-04-30] MEDS: DAPTOMYCIN 500 MG in SOD CHLORIDE 0.9% 100 ML IVPB (05:14)
[2018-04-30] MEDS: ALPRAZOLAM 1 MG TAB PO (05:14)
[2018-04-30] MEDS: PANTOPRAZOLE (EC) 40 MG TAB PO (05:14)
[2018-04-30] MEDS: ACCU-CHEK XX ×4 (07:51→21:36)
[2018-04-30] MEDS: INSULIN ASPART [NOVOLOG] 3 ML PEN SC ×4 (07:52→21:00)
[2018-04-30] MEDS: metFORMIN 500 MG TAB PO ×2 (08:00→17:05)
[2018-04-30] MEDS: LACTATED RINGER'S 1,000 ML IV ×2 (08:56→10:08)
[2018-04-30] MEDS: GABAPENTIN 300 MG CAP PO ×3 (09:00→21:00)
[2018-04-30] MEDS: DOCUSATE SODIUM 10 MG/ML (10ML CUP) PO ×2 (09:00→21:00)
[2018-04-30] MEDS: METHADONE (1 MG/ML 5 ML PO UD SYG) PO (09:00)
[2018-04-30 09:22] LABS: WHITE BLOOD COUNT 10.8 10^3/ul (4.8-10.8)
[2018-04-30 09:22] LABS: HEMATOCRIT 27.2 % (42.0-52.0); HEMOGLOBIN 8.7 g/dl (14.0-18.0); MEAN CORPUSCULAR HEMOGLOBIN 27.6 pg (29.0-33.0); MEAN CORPUSCULAR VOLUME 86.3 fl (82.0-101.0); MEAN PLATELET VOLUME 8.6 fl (7.4-10.4); PLATELET COUNT 238 10^3/UL (140-415); POSITIVE DIFF @See below; RED BLOOD COUNT 3.15 10^6/ul (4.70-6.10); RED CELL DISTRIBUTION WIDTH 16.1 % (11.5-14.5)
[2018-04-30 09:29] LABS: ANION GAP 6 (8-16); BLOOD UREA NITROGEN 27 mg/dl (7-20); CALCIUM 7.1 mg/dl (8.4-10.2); CARBON DIOXIDE 32 mmol/L (21-31); CHLORIDE 100 mmol/L (97-110); CREATININE 0.82 mg/dl (0.61-1.24); GLUCOSE 120 mg/dl (70-220); POTASSIUM 4.6 mmol/L (3.5-5.1); SODIUM 133 mmol/L (135-144)
[2018-04-30 09:34] LABS: LACTATE DEHYDROGENASE 696 IU/L (313-618)
[2018-04-30 09:44] LABS: ADD MAN DIFF? YES
[2018-04-30] MEDS: NICOTINE (21 MG/24 HR) PATCH TRANSDERM (09:48)
[2018-04-30] MEDS: ENOXAPARIN 40 MG/0.4 ML SYG SC (09:49)
[2018-04-30] MEDS: MUPIROCIN 2% 22 GM OINT TOP ×2 (09:50→23:35)
[2018-04-30] MEDS: BALSAM PERU/CASTOR OIL 60 GM TUBE TOP (09:51)
[2018-04-30] MEDS: COLLAGENASE 5 GM (UD JAR) TOP (09:51)
[2018-04-30 09:56] LABS: ADD UMIC YES; UR ASCORBIC ACID NEGATIVE (NEGATIVE); UR BACTERIA FEW /HPF (NONE SEEN); UR BILIRUBIN (Dip) NEGATIVE (NEGATIVE); UR BLOOD (Dip) NEGATIVE (NEGATIVE); UR CLARITY CLOUDY (CLEAR); UR COLOR YELLOW (YELLOW); UR GLUCOSE (Dip) 1+ mg/dL (NEGATIVE); UR KETONES (Dip) NEGATIVE (NEGATIVE); UR LEUKOCYTE ESTERASE (Dip) NEGATIVE Leu/ul (NEGATIVE); UR MUCUS FEW /HPF (NONE SEEN); UR NITRITE (Dip) NEGATIVE (NEGATIVE); UR RBC 2 /HPF (0-5); UR SPECIFIC GRAVITY (Dip) 1.031 (1.003-1.030); UR TOTAL PROTEIN (Dip) 3+ mg/dl (NEGATIVE); UR UROBILINOGEN (Dip) 2+ mg/dL (NEGATIVE); UR WBC 4 /HPF (0-5)
[2018-04-30 10:25] LABS: ANISOCYTOSIS 1+ (0-0); BAND NEUTROPHILS #M 1.5 10^3/ul (0.0-0.6); BAND NEUTROPHILS % (M) 14 % (0-4); EOSINOPHILS % (M) 2 % (0-7); ERYTHROBLAST% (NRBC) (M) 1 % (0-0); LYMPHOCYTES % (M) 10 % (15-51); MONOCYTE #M 0.7 10^3/ul (0.3-0.9); MONOCYTES % (M) 7 % (0-11); PLATELET ESTIMATE NORMAL; SEG NEUT #M 7.4 10^3/ul (1.6-7.5); SEGMENTED NEUTROPHILS (M) % 67 % (39-77)
[2018-04-30] MEDS: MEROPENEM 1 GM/50ML(PMX) 50 ML IVPB ×3 (11:23→21:37)
[2018-04-30 13:32] LABS: AADO2 Arterial 163.5 mmHg (7.0-24.0); Allen Test ACCEPTAB; Arterial Base Excess 4.1 mmol/L (-3.0-3); Arterial Blood Gas Oxygen Sat 95.5 mmHG (95.0-98.0); Arterial COHb 0.3 % (0.0-3.0); Arterial HCO3 31.1 mmol/L (22.0-26.0); Arterial MetHb 0.2 % (0.0-1.5); Arterial Total Hemglobin 9.6 g/dl (12.0-18.0); Arterial pCO2 60.8 mmhg (35-45); MODE MASK - SIMPLE; Site Right Radial
[2018-04-30 16:48] LABS: LACTIC ACID 0.7 mmol/L (0.5-2.0)
[2018-04-30] MEDS ORDERED: NORepinephrine 8MG/250 ML (PMX 250 ML IV (18:30)
[2018-04-30] MEDS ORDERED: DEXTROSE 5% IV (18:30)
[2018-04-30] MEDS ORDERED: NOREPINEPHRINE IV (18:30)
[2018-05-01] MEDS: SOD CHLORIDE 0.9% 500 ML IV (00:06)
[2018-05-01] MEDS: morphine 2 MG INJ IV ×5 (00:40→22:32)
[2018-05-01] MEDS: ALBUTEROL/IPRATROPIUM (NEB) 3 ML AMP HHN ×4 (01:49→19:32)
[2018-05-01] MEDS: ACETYLCYSTEINE 20% 4 ML VIAL NEB ×4 (01:49→19:32)
[2018-05-01] MEDS: MEROPENEM 1 GM/50ML(PMX) 50 ML IVPB ×3 (05:09→22:30)
[2018-05-01] MEDS: DAPTOMYCIN 500 MG in SOD CHLORIDE 0.9% 100 ML IVPB (05:09)
[2018-05-01] MEDS: PANTOPRAZOLE (EC) 40 MG TAB PO (05:10)
[2018-05-01 05:38] LABS: WHITE BLOOD COUNT 8.6 10^3/ul (4.8-10.8)
[2018-05-01 05:38] LABS: ABNORMAL IP MESSAGE 1; HEMATOCRIT 25.1 % (42.0-52.0); MEAN CORPUSCULAR HEMOGLOBIN 27.5 pg (29.0-33.0); MEAN CORPUSCULAR HGB CONC 31.9 g/dl (32.0-37.0); MEAN CORPUSCULAR VOLUME 86.3 fl (82.0-101.0); MEAN PLATELET VOLUME 8.7 fl (7.4-10.4); PLATELET COUNT 277 10^3/UL (140-415); POSITIVE DIFF @See below; RED BLOOD COUNT 2.91 10^6/ul (4.70-6.10); RED CELL DISTRIBUTION WIDTH 16.2 % (11.5-14.5)
[2018-05-01 05:52] LABS: ADD MAN DIFF? YES
[2018-05-01 05:58] LABS: ANION GAP 6 (8-16); BLOOD UREA NITROGEN 29 mg/dl (7-20); CALCIUM 7.4 mg/dl (8.4-10.2); CARBON DIOXIDE 33 mmol/L (21-31); CHLORIDE 98 mmol/L (97-110); CREATININE 1.05 mg/dl (0.61-1.24); GLUCOSE 76 mg/dl (70-220); POTASSIUM 4.3 mmol/L (3.5-5.1); SODIUM 133 mmol/L (135-144)
[2018-05-01 06:50] LABS: BAND NEUTROPHILS #M 1.7 10^3/ul (0.0-0.6); BAND NEUTROPHILS % (M) 20 % (0-4); BASOPHILS % (M) 1 % (0-2); GIANT THROMBO% (M) 1 % (0-0); LYMPHOCYTES #M 1.4 10^3/ul (0.8-2.9); LYMPHOCYTES % (M) 17 % (15-51); MONOCYTE #M 0.6 10^3/ul (0.3-0.9); MONOCYTES % (M) 7 % (0-11); PLATELET ESTIMATE NORMAL; POIKILOCYTOSIS 2+ (0-0); REACTIVE LYMPHOCYTES% (M) 1 % (0-0); SEG NEUT #M 4.8 10^3/ul (1.6-7.5); SEGMENTED NEUTROPHILS (M) % 54 % (39-77); SMUDGE%M 9 % (0-0)
[2018-05-01] MEDS: ACCU-CHEK XX ×4 (07:27→20:59)
[2018-05-01] MEDS: metFORMIN 500 MG TAB PO (07:32)
[2018-05-01] MEDS: INSULIN ASPART [NOVOLOG] 3 ML PEN SC ×4 (07:32→20:14)
[2018-05-01] MEDS: METHADONE (1 MG/ML 5 ML PO UD SYG) PO (08:01)
[2018-05-01] MEDS: DOCUSATE SODIUM 10 MG/ML (10ML CUP) PO ×2 (08:01→20:12)
[2018-05-01] MEDS: GABAPENTIN 300 MG CAP PO ×2 (08:01→13:00)
[2018-05-01] MEDS: NICOTINE (21 MG/24 HR) PATCH TRANSDERM (08:30)
[2018-05-01] MEDS: MUPIROCIN 2% 22 GM OINT TOP ×2 (08:30→20:13)
[2018-05-01] MEDS: ENOXAPARIN 40 MG/0.4 ML SYG SC (08:33)
[2018-05-01] MEDS: BALSAM PERU/CASTOR OIL 60 GM TUBE TOP (08:34)
[2018-05-01] MEDS: CASPOFUNGIN 70 MG in SOD CHLORIDE 0.9% 250 ML IVPB (18:26)
[2018-05-01] MEDS: HYDROmorphONE 2 MG TAB PO (20:13)
[2018-05-01] MEDS: LORAZEPAM 2 MG INJ IV (22:31)
[2018-05-02] MEDS: ACETYLCYSTEINE 20% 4 ML VIAL NEB ×4 (01:45→20:11)
[2018-05-02] MEDS: ALBUTEROL/IPRATROPIUM (NEB) 3 ML AMP HHN ×4 (01:45→20:11)
[2018-05-02] MEDS: HYDROmorphONE 2 MG TAB PO ×3 (02:23→21:29)
[2018-05-02 05:03] LABS: ADD MAN DIFF? NO
[2018-05-02 05:04] LABS: WHITE BLOOD COUNT 9.1 10^3/ul (4.8-10.8)
[2018-05-02 05:04] LABS: BASOPHILS % 0.3 % (0.0-2.0); EOSINOPHILS # 0.3 10^3/ul (0.0-0.5); EOSINOPHILS % 2.7 % (0.0-7.0); HEMATOCRIT 23.3 % (42.0-52.0); HEMOGLOBIN 7.4 g/dl (14.0-18.0); LYMPHOCYTES # 2.2 10^3/ul (0.8-2.9); MEAN CORPUSCULAR HGB CONC 31.8 g/dl (32.0-37.0); MEAN PLATELET VOLUME 8.4 fl (7.4-10.4); MONOCYTE # 0.8 10^3/ul (0.3-0.9); MONOCYTES % 8.2 % (0.0-11.0); NEUTROPHIL # 5.7 10^3/ul (1.6-7.5); NEUTROPHILS % 62.7 % (39.0-77.0); PLATELET COUNT 328 10^3/UL (140-415); RED BLOOD COUNT 2.74 10^6/ul (4.70-6.10); RED CELL DISTRIBUTION WIDTH 16.3 % (11.5-14.5)
[2018-05-02] MEDS: DAPTOMYCIN 500 MG in SOD CHLORIDE 0.9% 100 ML IVPB (05:07)
[2018-05-02] MEDS: MEROPENEM 1 GM/50ML(PMX) 50 ML IVPB ×3 (05:07→20:55)
[2018-05-02] MEDS: PANTOPRAZOLE (EC) 40 MG TAB PO (05:07)
[2018-05-02 05:39] LABS: ALANINE AMINOTRANSFERASE 33 IU/L (13-69); ALBUMIN 1.5 g/dl (3.3-4.9); ALBUMIN/GLOBULIN RATIO 0.62; ALKALINE PHOSPHATASE 111 IU/L (42-121); ANION GAP 4 (8-16); ASPARTATE AMINO TRANSFERASE 49 IU/L (15-46); BLOOD UREA NITROGEN 30 mg/dl (7-20); CALCIUM 7.6 mg/dl (8.4-10.2); CARBON DIOXIDE 32 mmol/L (21-31); CHLORIDE 100 mmol/L (97-110); GLUCOSE 103 mg/dl (70-220); POTASSIUM 3.6 mmol/L (3.5-5.1); SODIUM 132 mmol/L (135-144); TOTAL PROTEIN 3.9 g/dl (6.1-8.1)
[2018-05-02 05:49] LABS: LACTIC ACID 0.6 mmol/L (0.5-2.0)
[2018-05-02 06:22] LABS: PHOSPHORUS 3.7 mg/dl (2.5-4.9)
[2018-05-02] MEDS: ACCU-CHEK XX ×4 (07:05→20:55)
[2018-05-02] MEDS: INSULIN ASPART [NOVOLOG] 3 ML PEN SC ×4 (07:35→21:00)
[2018-05-02] MEDS: BALSAM PERU/CASTOR OIL 60 GM TUBE TOP (08:44)
[2018-05-02] MEDS: MUPIROCIN 2% 22 GM OINT TOP ×2 (08:44→20:56)
[2018-05-02] MEDS: DOCUSATE SODIUM 10 MG/ML (10ML CUP) PO ×2 (09:30→20:56)
[2018-05-02] MEDS: ENOXAPARIN 40 MG/0.4 ML SYG SC (09:33)
[2018-05-02] MEDS: morphine 2 MG INJ IV ×3 (10:50→23:29)
[2018-05-02] MEDS: METHADONE (1 MG/ML 5 ML PO UD SYG) PO (13:27)
[2018-05-02] MEDS: GUAIFENESIN/DM 5ML CUP PO (13:41)
[2018-05-02 14:27] LABS: IMMEDIATE SPIN CROSSMATCH 1 1
[2018-05-02] MEDS: HALOPERIDOL 5 MG INJ IV ×2 (16:49→17:14)
[2018-05-02] MEDS ORDERED: CASPOFUNGIN 50 MG in SOD CHLORIDE 0.9% 250 ML IVPB (17:30)
[2018-05-03] MEDS: HALOPERIDOL 5 MG INJ IM (00:10)
[2018-05-03] MEDS: ACETYLCYSTEINE 20% 4 ML VIAL NEB ×4 (01:44→20:00)
[2018-05-03] MEDS: ALBUTEROL/IPRATROPIUM (NEB) 3 ML AMP HHN ×3 (01:44→21:27)
[2018-05-03] MEDS: MEROPENEM 1 GM/50ML(PMX) 50 ML IVPB ×3 (05:07→22:00)
[2018-05-03] MEDS: PANTOPRAZOLE (EC) 40 MG TAB PO (05:08)
[2018-05-03] MEDS: morphine 2 MG INJ IV (05:26)
[2018-05-03] MEDS: DAPTOMYCIN 500 MG in SOD CHLORIDE 0.9% 100 ML IVPB (05:26)
[2018-05-03 05:27] LABS: ADD MAN DIFF? NO
[2018-05-03 05:33] LABS: BASOPHILS % 0.3 % (0.0-2.0); EOSINOPHILS # 0.3 10^3/ul (0.0-0.5); HEMATOCRIT 29.5 % (42.0-52.0); HEMOGLOBIN 9.6 g/dl (14.0-18.0); LYMPHOCYTES # 1.4 10^3/ul (0.8-2.9); LYMPHOCYTES % 13.2 % (15.0-51.0); MEAN CORPUSCULAR HEMOGLOBIN 27.7 pg (29.0-33.0); MEAN CORPUSCULAR HGB CONC 32.5 g/dl (32.0-37.0); MEAN CORPUSCULAR VOLUME 85.3 fl (82.0-101.0); MEAN PLATELET VOLUME 8.2 fl (7.4-10.4); MONOCYTE # 0.7 10^3/ul (0.3-0.9); MONOCYTES % 6.2 % (0.0-11.0); NEUTROPHIL # 8.2 10^3/ul (1.6-7.5); NEUTROPHILS % 75.9 % (39.0-77.0); PLATELET COUNT 352 10^3/UL (140-415); RED BLOOD COUNT 3.46 10^6/ul (4.70-6.10); RED CELL DISTRIBUTION WIDTH 15.5 % (11.5-14.5)
[2018-05-03 05:33] LABS: WHITE BLOOD COUNT 10.9 10^3/ul (4.8-10.8)
[2018-05-03 05:53] LABS: CREATINE KINASE < 20 IU/L (23-200)
[2018-05-03 06:11] LABS: ALANINE AMINOTRANSFERASE 30 IU/L (13-69); ALBUMIN 1.8 g/dl (3.3-4.9); ALBUMIN/GLOBULIN RATIO 0.69; ALKALINE PHOSPHATASE 135 IU/L (42-121); ASPARTATE AMINO TRANSFERASE 59 IU/L (15-46); BLOOD UREA NITROGEN 25 mg/dl (7-20); CALCIUM 7.7 mg/dl (8.4-10.2); CARBON DIOXIDE 30 mmol/L (21-31); CHLORIDE 102 mmol/L (97-110); CREATININE 0.91 mg/dl (0.61-1.24); GLUCOSE 66 mg/dl (70-220); SODIUM 133 mmol/L (135-144); TOTAL PROTEIN 4.4 g/dl (6.1-8.1)
[2018-05-03 06:14] LABS: ANION GAP 5 (8-16); POTASSIUM 3.9 mmol/L (3.5-5.1)
[2018-05-03] MEDS: ACCU-CHEK XX ×4 (07:05→21:00)
[2018-05-03] MEDS: INSULIN ASPART [NOVOLOG] 3 ML PEN SC ×4 (07:35→23:00)
[2018-05-03] MEDS: DOCUSATE SODIUM 10 MG/ML (10ML CUP) PO ×2 (09:05→23:12)
[2018-05-03] MEDS: METHADONE (1 MG/ML 5 ML PO UD SYG) PO (09:05)
[2018-05-03] MEDS: BALSAM PERU/CASTOR OIL 60 GM TUBE TOP (09:06)
[2018-05-03] MEDS: MUPIROCIN 2% 22 GM OINT TOP ×2 (09:06→23:12)
[2018-05-03] MEDS: ENOXAPARIN 40 MG/0.4 ML SYG SC (09:08)
[2018-05-03] MEDS: HYDROmorphONE 2 MG TAB PO ×2 (17:47→23:27)
[2018-05-04] MEDS: ACETYLCYSTEINE 20% 4 ML VIAL NEB ×4 (01:47→20:38)
[2018-05-04] MEDS: ALBUTEROL/IPRATROPIUM (NEB) 3 ML AMP HHN ×2 (01:47→20:37)
[2018-05-04] MEDS: HYDROmorphONE 2 MG TAB PO ×3 (03:50→21:10)
[2018-05-04] MEDS: MEROPENEM 1 GM/50ML(PMX) 50 ML IVPB ×3 (05:19→21:04)
[2018-05-04] MEDS: PANTOPRAZOLE (EC) 40 MG TAB PO (05:19)
[2018-05-04] MEDS: DAPTOMYCIN 500 MG in SOD CHLORIDE 0.9% 100 ML IVPB (05:58)
[2018-05-04 06:25] LABS: ADD MAN DIFF? NO
[2018-05-04 06:26] LABS: BASOPHILS % 0.2 % (0.0-2.0); EOSINOPHILS # 0.3 10^3/ul (0.0-0.5); EOSINOPHILS % 1.7 % (0.0-7.0); HEMATOCRIT 27.4 % (42.0-52.0); HEMOGLOBIN 9.1 g/dl (14.0-18.0); LYMPHOCYTES # 2.2 10^3/ul (0.8-2.9); LYMPHOCYTES % 14.8 % (15.0-51.0); MEAN CORPUSCULAR HEMOGLOBIN 27.7 pg (29.0-33.0); MEAN CORPUSCULAR HGB CONC 33.2 g/dl (32.0-37.0); MEAN CORPUSCULAR VOLUME 83.5 fl (82.0-101.0); MEAN PLATELET VOLUME 8.2 fl (7.4-10.4); MONOCYTE # 0.7 10^3/ul (0.3-0.9); MONOCYTES % 4.8 % (0.0-11.0); NEUTROPHIL # 11.6 10^3/ul (1.6-7.5); NEUTROPHILS % 77.3 % (39.0-77.0); PLATELET COUNT 329 10^3/UL (140-415); RED BLOOD COUNT 3.28 10^6/ul (4.70-6.10); RED CELL DISTRIBUTION WIDTH 15.5 % (11.5-14.5)
[2018-05-04 06:48] LABS: ALANINE AMINOTRANSFERASE 34 IU/L (13-69); ALBUMIN 1.5 g/dl (3.3-4.9); ALBUMIN/GLOBULIN RATIO 0.62; ALKALINE PHOSPHATASE 151 IU/L (42-121); ANION GAP 4 (8-16); ASPARTATE AMINO TRANSFERASE 41 IU/L (15-46); BILIRUBIN,INDIRECT 0.1 mg/dl (0-1.1); BILIRUBIN,TOTAL 0.1 mg/dl (0.2-1.3); BLOOD UREA NITROGEN 26 mg/dl (7-20); CALCIUM 7.4 mg/dl (8.4-10.2); CARBON DIOXIDE 30 mmol/L (21-31); CHLORIDE 96 mmol/L (97-110); CREATININE 0.97 mg/dl (0.61-1.24); GLUCOSE 99 mg/dl (70-220); POTASSIUM 3.3 mmol/L (3.5-5.1); SODIUM 127 mmol/L (135-144); TOTAL PROTEIN 3.9 g/dl (6.1-8.1)
[2018-05-04] MEDS: INSULIN ASPART [NOVOLOG] 3 ML PEN SC ×4 (08:00→21:04)
[2018-05-04] MEDS: ACCU-CHEK XX ×4 (08:16→21:00)
[2018-05-04] MEDS: METHADONE (1 MG/ML 5 ML PO UD SYG) PO (09:32)
[2018-05-04] MEDS: BALSAM PERU/CASTOR OIL 60 GM TUBE TOP (09:33)
[2018-05-04] MEDS: DOCUSATE SODIUM 10 MG/ML (10ML CUP) PO ×2 (09:33→21:00)
[2018-05-04] MEDS: MUPIROCIN 2% 22 GM OINT TOP ×2 (09:36→20:55)
[2018-05-04] MEDS: HYDROCODONE/APAP (5/325) TAB PO ×2 (13:19→19:41)
[2018-05-04] MEDS: POTASSIUM CHLORIDE 20 MEQ POWDER FOR ORAL SOLN PO (13:20)
[2018-05-04] MEDS: LACTATED RINGER'S 1,000 ML IV (13:22)
[2018-05-04] MEDS: SOD CHLORIDE 0.9% 1,000 ML IV ×2 (14:45→22:30)
[2018-05-04] MEDS ORDERED: GLUCOSE GEL 15 GRAM TUBE PO ×2 (16:00)
[2018-05-04] MEDS ORDERED: GLUCAGON 1 MG INJ IM (16:00)
[2018-05-04] MEDS ORDERED: DEXTROSE 50% 50 ML SYRINGE IV (16:00)
[2018-05-04 17:46] LABS: ANION GAP 4 (8-16); BLOOD UREA NITROGEN 26 mg/dl (7-20); CALCIUM 7.4 mg/dl (8.4-10.2); CARBON DIOXIDE 30 mmol/L (21-31); CHLORIDE 99 mmol/L (97-110); CREATININE 1.01 mg/dl (0.61-1.24); GLUCOSE 137 mg/dl (70-220); POTASSIUM 3.8 mmol/L (3.5-5.1); SODIUM 129 mmol/L (135-144)
[2018-05-05] MEDS: ALBUTEROL/IPRATROPIUM (NEB) 3 ML AMP HHN ×5 (00:23→21:21)
[2018-05-05] MEDS: ZOLPIDEM 5 MG TAB PO (01:00)
[2018-05-05] MEDS: FUROSEMIDE 20 MG INJ IV (01:02)
[2018-05-05] MEDS: ACETYLCYSTEINE 20% 4 ML VIAL NEB ×4 (01:58→21:21)
[2018-05-05] MEDS: CLINDAMYCIN 900 MG/D5W (PMX) 50 ML IVPB ×4 (02:31→20:51)
[2018-05-05] MEDS: SOD CHLORIDE 0.9% 1,000 ML IV ×2 (02:32→17:25)
[2018-05-05] MEDS: DAPTOMYCIN 500 MG in SOD CHLORIDE 0.9% 100 ML IVPB (05:09)
[2018-05-05] MEDS: PANTOPRAZOLE (EC) 40 MG TAB PO (05:09)
[2018-05-05] MEDS: HYDROmorphONE 2 MG TAB PO ×2 (05:16→12:13)
[2018-05-05 05:49] LABS: ADD MAN DIFF? NO; ADD UMIC YES; UR ASCORBIC ACID NEGATIVE (NEGATIVE); UR BACTERIA FEW /HPF (NONE SEEN); UR BILIRUBIN (Dip) NEGATIVE (NEGATIVE); UR BLOOD (Dip) NEGATIVE (NEGATIVE); UR BUDDING YEAST MANY /HPF (NONE SEEN); UR CLARITY SLIGHTLY CLOUDY (CLEAR); UR COLOR YELLOW (YELLOW); UR GLUCOSE (Dip) 3+ mg/dL (NEGATIVE); UR HYALINE CAST FEW /HPF (NONE SEEN); UR KETONES (Dip) NEGATIVE (NEGATIVE); UR LEUKOCYTE ESTERASE (Dip) NEGATIVE Leu/ul (NEGATIVE); UR MUCUS FEW /HPF (NONE SEEN); UR NITRITE (Dip) NEGATIVE (NEGATIVE); UR NONSQUAMOUS EPITHELIAL CELL 1 /HPF (NONE SEEN); UR RBC 4 /HPF (0-5); UR SPECIFIC GRAVITY (Dip) 1.012 (1.003-1.030); UR SQUAMOUS EPITHELIAL CELL FEW /HPF (FEW); UR TOTAL PROTEIN (Dip) 3+ mg/dl (NEGATIVE); UR UROBILINOGEN (Dip) NEGATIVE (NEGATIVE); UR WBC 15 /HPF (0-5)
[2018-05-05 06:00] LABS: WHITE BLOOD COUNT 18.8 10^3/ul (4.8-10.8)
[2018-05-05 06:00] LABS: BASOPHIL # 0.1 10^3/ul (0.0-0.1); BASOPHILS % 0.3 % (0.0-2.0); EOSINOPHILS # 0.3 10^3/ul (0.0-0.5); EOSINOPHILS % 1.5 % (0.0-7.0); HEMATOCRIT 30.1 % (42.0-52.0); HEMOGLOBIN 9.9 g/dl (14.0-18.0); LYMPHOCYTES # 2.8 10^3/ul (0.8-2.9); LYMPHOCYTES % 14.7 % (15.0-51.0); MEAN CORPUSCULAR HEMOGLOBIN 27.7 pg (29.0-33.0); MEAN CORPUSCULAR HGB CONC 32.9 g/dl (32.0-37.0); MEAN CORPUSCULAR VOLUME 84.1 fl (82.0-101.0); MEAN PLATELET VOLUME 8.1 fl (7.4-10.4); MONOCYTE # 1.2 10^3/ul (0.3-0.9); MONOCYTES % 6.2 % (0.0-11.0); NEUTROPHIL # 13.8 10^3/ul (1.6-7.5); NEUTROPHILS % 73.2 % (39.0-77.0); PLATELET COUNT 347 10^3/UL (140-415); RED BLOOD COUNT 3.58 10^6/ul (4.70-6.10); RED CELL DISTRIBUTION WIDTH 15.6 % (11.5-14.5)
[2018-05-05 06:17] LABS: LACTIC ACID 0.7 mmol/L (0.5-2.0)
[2018-05-05 06:20] LABS: ALANINE AMINOTRANSFERASE 28 IU/L (13-69); ALBUMIN 1.4 g/dl (3.3-4.9); ALBUMIN/GLOBULIN RATIO 0.63; ALKALINE PHOSPHATASE 165 IU/L (42-121); ANION GAP 4 (8-16); ASPARTATE AMINO TRANSFERASE 40 IU/L (15-46); BLOOD UREA NITROGEN 25 mg/dl (7-20); CALCIUM 7.2 mg/dl (8.4-10.2); CARBON DIOXIDE 28 mmol/L (21-31); CHLORIDE 104 mmol/L (97-110); CREATININE 0.85 mg/dl (0.61-1.24); GLUCOSE 100 mg/dl (70-220); POTASSIUM 3.8 mmol/L (3.5-5.1); SODIUM 132 mmol/L (135-144); TOTAL PROTEIN 3.6 g/dl (6.1-8.1)
[2018-05-05] MEDS ORDERED: ALBUTEROL 0.083% (NEB) 2.5 MG/3 ML AMP (07:00)
[2018-05-05] MEDS: INSULIN ASPART [NOVOLOG] 3 ML PEN SC ×4 (08:00→20:48)
[2018-05-05] MEDS: ACCU-CHEK XX ×4 (08:35→20:51)
[2018-05-05] MEDS: DOCUSATE SODIUM 10 MG/ML (10ML CUP) PO ×3 (09:00→20:48)
[2018-05-05] MEDS: MUPIROCIN 2% 22 GM OINT TOP ×2 (09:00→20:48)
[2018-05-05] MEDS: METHADONE (1 MG/ML 5 ML PO UD SYG) PO (09:05)
[2018-05-05] MEDS: HYDROCODONE/APAP (5/325) TAB PO ×2 (17:25→22:37)
[2018-05-05] MEDS ORDERED: ZOLPIDEM 5 MG TAB PO (21:00)
[2018-05-06] MEDS: PIPER-TAZO 3.375 GM IV (PMX) 100 ML IVPB ×5 (01:40→23:39)
[2018-05-06] MEDS: ACETYLCYSTEINE 20% 4 ML VIAL NEB ×5 (02:00→19:49)
[2018-05-06] MEDS: HYDROmorphONE 2 MG TAB PO (02:09)
[2018-05-06] MEDS: SOD CHLORIDE 0.9% 1,000 ML IV ×3 (04:30→16:06)
[2018-05-06] MEDS: DAPTOMYCIN 500 MG in SOD CHLORIDE 0.9% 100 ML IVPB (05:27)
[2018-05-06] MEDS: PANTOPRAZOLE (EC) 40 MG TAB PO (05:28)
[2018-05-06 06:26] LABS: AADO2 Arterial 467.6 mmHg (7.0-24.0); Allen Test ACCEPTAB; Arterial Base Excess -3.7 mmol/L (-3.0-3); Arterial Blood Gas Oxygen Sat 96.4 mmHG (95.0-98.0); Arterial COHb 0.3 % (0.0-3.0); Arterial Fraction of Oxyhgb 95.7 % (93.0-99.0); Arterial HCO3 30.1 mmol/L (22.0-26.0); Arterial MetHb 0.4 % (0.0-1.5); Arterial Total Hemglobin 12.3 g/dl (12.0-18.0); Arterial pCO2 121.4 mmhg (35-45); MODE MASK - NRB; Site Right Radial
[2018-05-06] MEDS: ALBUTEROL/IPRATROPIUM (NEB) 3 ML AMP HHN ×4 (06:30→19:42)
[2018-05-06] MEDS: INSULIN ASPART [NOVOLOG] 3 ML PEN SC ×4 (07:35→20:24)
[2018-05-06] MEDS: ACCU-CHEK XX ×4 (07:35→20:09)
[2018-05-06 07:53] LABS: AADO2 Arterial 252.6 mmHg (7.0-24.0); Arterial Base Excess 0.6 mmol/L (-3.0-3); Arterial Blood Gas Oxygen Sat 93.6 mmHG (95.0-98.0); Arterial COHb 0.3 % (0.0-3.0); Arterial Fraction of Oxyhgb 93.1 % (93.0-99.0); Arterial HCO3 24.2 mmol/L (22.0-26.0); Arterial MetHb 0.2 % (0.0-1.5); Arterial Total Hemglobin 11.6 g/dl (12.0-18.0); Arterial pCO2 34.9 mmhg (35-45); Blood Gas IEPAP 18/5; Blood Gas PS 13; MODE MASK - BIPAP; Site LB
[2018-05-06] MEDS: METHADONE (1 MG/ML 5 ML PO UD SYG) PO ×2 (08:05→14:34)
[2018-05-06] MEDS: DOCUSATE SODIUM 10 MG/ML (10ML CUP) PO ×2 (08:05→20:08)
[2018-05-06] MEDS: MUPIROCIN 2% 22 GM OINT TOP ×2 (08:56→20:09)
[2018-05-06] MEDS: morphine 2 MG INJ IV ×2 (09:57→20:08)
[2018-05-06] MEDS ORDERED: PENDING SANTYL ORDER FOR WOUND CARE XX (12:30)
[2018-05-06] MEDS: ALPRAZOLAM 0.5 MG TAB PO (21:09)
[2018-05-07] MEDS: SOD CHLORIDE 0.9% 1,000 ML IV ×3 (00:02→21:16)
[2018-05-07] MEDS: CASPOFUNGIN 70 MG in SOD CHLORIDE 0.9% 250 ML IVPB ×2 (00:30→02:17)
[2018-05-07] MEDS: ACETYLCYSTEINE 20% 4 ML VIAL NEB ×5 (01:38→20:00)
[2018-05-07] MEDS: ZOLPIDEM 5 MG TAB PO (02:17)
[2018-05-07] MEDS: PANTOPRAZOLE (EC) 40 MG TAB PO (05:44)
[2018-05-07] MEDS: PIPER-TAZO 3.375 GM IV (PMX) 100 ML IVPB ×3 (05:44→17:58)
[2018-05-07] MEDS: DAPTOMYCIN 500 MG in SOD CHLORIDE 0.9% 100 ML IVPB (05:44)
[2018-05-07 06:39] LABS: CREATININE 1.02 mg/dl (0.61-1.24)
[2018-05-07 06:39] LABS: BLOOD UREA NITROGEN 24 mg/dl (7-20)
[2018-05-07] MEDS: INSULIN ASPART [NOVOLOG] 3 ML PEN SC ×4 (07:35→21:00)
[2018-05-07] MEDS: ACCU-CHEK XX ×4 (08:07→21:16)
[2018-05-07] MEDS: COLLAGENASE 5 GM (UD JAR) TOP (08:08)
[2018-05-07] MEDS: DOCUSATE SODIUM 10 MG/ML (10ML CUP) PO ×3 (08:08→21:16)
[2018-05-07] MEDS: ALBUTEROL/IPRATROPIUM (NEB) 3 ML AMP HHN ×3 (08:54→21:47)
[2018-05-07] MEDS: METHADONE (1 MG/ML 5 ML PO UD SYG) PO (09:43)
[2018-05-07] MEDS: morphine 2 MG INJ IV ×2 (12:31→21:20)
[2018-05-07] MEDS: HYDROCODONE/APAP (5/325) TAB PO (14:47)
[2018-05-07] MEDS: HYDROmorphONE 2 MG TAB PO (22:40)
[2018-05-08] MEDS: PIPER-TAZO 3.375 GM IV (PMX) 100 ML IVPB ×5 (00:55→23:26)
[2018-05-08] MEDS: ACETYLCYSTEINE 20% 4 ML VIAL NEB ×4 (01:12→19:33)
[2018-05-08] MEDS: ALBUTEROL/IPRATROPIUM (NEB) 3 ML AMP HHN ×2 (01:12→08:11)
[2018-05-08] MEDS: morphine 2 MG INJ IV ×4 (01:26→16:26)
[2018-05-08] MEDS: DAPTOMYCIN 500 MG in SOD CHLORIDE 0.9% 100 ML IVPB (06:36)
[2018-05-08] MEDS: SOD CHLORIDE 0.9% 1,000 ML IV ×3 (06:36→22:23)
[2018-05-08] MEDS: PANTOPRAZOLE (EC) 40 MG TAB PO (06:36)
[2018-05-08 06:59] LABS: WHITE BLOOD COUNT 9.9 10^3/ul (4.8-10.8)
[2018-05-08 06:59] LABS: ABNORMAL IP MESSAGE 1; HEMATOCRIT 30.3 % (42.0-52.0); HEMOGLOBIN 10.2 g/dl (14.0-18.0); MEAN CORPUSCULAR HEMOGLOBIN 27.8 pg (29.0-33.0); MEAN CORPUSCULAR HGB CONC 33.7 g/dl (32.0-37.0); MEAN CORPUSCULAR VOLUME 82.6 fl (82.0-101.0); MEAN PLATELET VOLUME 8.3 fl (7.4-10.4); PLATELET COUNT 464 10^3/UL (140-415); POSITIVE DIFF @See below; RED BLOOD COUNT 3.67 10^6/ul (4.70-6.10); RED CELL DISTRIBUTION WIDTH 15.7 % (11.5-14.5)
[2018-05-08] MEDS: CASPOFUNGIN 50 MG in SOD CHLORIDE 0.9% 250 ML IVPB (07:06)
[2018-05-08 07:12] LABS: ADD MAN DIFF? YES
[2018-05-08 07:25] LABS: MAGNESIUM 1.7 mg/dl (1.7-2.5)
[2018-05-08 07:25] LABS: PHOSPHORUS 3.6 mg/dl (2.5-4.9)
[2018-05-08 07:26] LABS: ANION GAP 4 (8-16); BLOOD UREA NITROGEN 19 mg/dl (7-20); CARBON DIOXIDE 23 mmol/L (21-31); CHLORIDE 109 mmol/L (97-110); CREATININE 0.99 mg/dl (0.61-1.24); GLUCOSE 105 mg/dl (70-220); SODIUM 133 mmol/L (135-144)
[2018-05-08 07:28] LABS: POTASSIUM 2.7 mmol/L (3.5-5.1)
[2018-05-08] MEDS: ACCU-CHEK XX ×4 (07:30→20:59)
[2018-05-08] MEDS: INSULIN ASPART [NOVOLOG] 3 ML PEN SC ×4 (08:00→20:59)
[2018-05-08 09:00] LABS: ANISOCYTOSIS 1+ (0-0); BAND NEUTROPHILS #M 0.6 10^3/ul (0.0-0.6); BAND NEUTROPHILS % (M) 7 % (0-4); EOSINOPHILS % (M) 4 % (0-7); GIANT THROMBO% (M) 2 % (0-0); LYMPHOCYTES #M 1.8 10^3/ul (0.8-2.9); LYMPHOCYTES % (M) 19 % (15-51); METAMYELOCYTES %M 1 % (0-0); MICROCYTOSIS 1+ (0-0); MONOCYTE #M 0.7 10^3/ul (0.3-0.9); MONOCYTES % (M) 8 % (0-11); MYELOCYTES #M 0.2 10^3/ul (0.0-0.0); MYELOCYTES % (M) 3 % (0-0); PLATELET ESTIMATE NORMAL; POIKILOCYTOSIS 1+ (0-0); POLYCHROMASIA 2+ (0-0); REACTIVE LYMPHOCYTES% (M) 1 % (0-0); SEG NEUT #M 5.7 10^3/ul (1.6-7.5); SEGMENTED NEUTROPHILS (M) % 57 % (39-77); SMUDGE%M 35 % (0-0)
[2018-05-08] MEDS: DOCUSATE SODIUM 10 MG/ML (10ML CUP) PO ×2 (09:00→21:00)
[2018-05-08] MEDS: METHADONE (1 MG/ML 5 ML PO UD SYG) PO (09:30)
[2018-05-08] MEDS: COLLAGENASE 5 GM (UD JAR) TOP (11:44)
[2018-05-08] MEDS: POTASSIUM CHLORIDE 100 ML IVPB ×2 (15:43→17:18)
[2018-05-09] MEDS: morphine 2 MG INJ IV (01:39)
[2018-05-09] MEDS: ACETYLCYSTEINE 20% 4 ML VIAL NEB ×4 (01:48→19:15)
[2018-05-09] MEDS: ALBUTEROL/IPRATROPIUM (NEB) 3 ML AMP HHN ×4 (01:48→19:14)
[2018-05-09] MEDS: DAPTOMYCIN 500 MG in SOD CHLORIDE 0.9% 100 ML IVPB (05:14)
[2018-05-09] MEDS: PANTOPRAZOLE (EC) 40 MG TAB PO (05:14)
[2018-05-09] MEDS: PIPER-TAZO 3.375 GM IV (PMX) 100 ML IVPB ×3 (06:09→17:19)
[2018-05-09] MEDS: IBUPROFEN 600 MG TAB PO (06:09)
[2018-05-09] MEDS: CASPOFUNGIN 50 MG in SOD CHLORIDE 0.9% 250 ML IVPB (06:45)
[2018-05-09] MEDS: ACCU-CHEK XX ×4 (07:30→21:00)
[2018-05-09 07:53] LABS: CREATINE KINASE 32 IU/L (23-200)
[2018-05-09] MEDS: INSULIN ASPART [NOVOLOG] 3 ML PEN SC ×4 (08:00→21:00)
[2018-05-09] MEDS: COLLAGENASE 5 GM (UD JAR) TOP (08:45)
[2018-05-09] MEDS: BALSAM PERU/CASTOR OIL 60 GM TUBE TOP (08:45)
[2018-05-09] MEDS: DOCUSATE SODIUM 10 MG/ML (10ML CUP) PO ×2 (08:45→21:00)
[2018-05-09] MEDS: METHADONE (1 MG/ML 5 ML PO UD SYG) PO (09:36)
[2018-05-09] MEDS: SOD CHLORIDE 0.9% 1,000 ML IV ×2 (12:12→22:22)
[2018-05-09] MEDS: HYDROCODONE/APAP (5/325) TAB PO (21:52)
[2018-05-10] MEDS: PIPER-TAZO 3.375 GM IV (PMX) 100 ML IVPB ×4 (00:31→17:42)
[2018-05-10] MEDS: ACETYLCYSTEINE 20% 4 ML VIAL NEB ×4 (01:36→19:45)
[2018-05-10] MEDS: DAPTOMYCIN 500 MG in SOD CHLORIDE 0.9% 100 ML IVPB (05:26)
[2018-05-10] MEDS: CASPOFUNGIN 50 MG in SOD CHLORIDE 0.9% 250 ML IVPB (05:26)
[2018-05-10] MEDS: PANTOPRAZOLE (EC) 40 MG TAB PO (05:32)
[2018-05-10] MEDS: ACCU-CHEK XX ×4 (07:30→20:57)
[2018-05-10] MEDS: INSULIN ASPART [NOVOLOG] 3 ML PEN SC ×4 (08:00→20:57)
[2018-05-10] MEDS: SOD CHLORIDE 0.9% 1,000 ML IV ×2 (08:01→12:47)
[2018-05-10] MEDS: [UNRECOGNIZED DRUG - REMARK] XX ×2 (08:30→16:24)
[2018-05-10] MEDS: ALBUTEROL/IPRATROPIUM (NEB) 3 ML AMP HHN ×3 (08:41→19:45)
[2018-05-10] MEDS: DOCUSATE SODIUM 10 MG/ML (10ML CUP) PO ×3 (09:00→20:57)
[2018-05-10] MEDS: COLLAGENASE 5 GM (UD JAR) TOP (09:03)
[2018-05-10] MEDS: METHADONE (1 MG/ML 5 ML PO UD SYG) PO (09:03)
[2018-05-10] MEDS: BALSAM PERU/CASTOR OIL 60 GM TUBE TOP (09:03)
[2018-05-10] MEDS: GLUCOSE GEL 15 GRAM TUBE BUCCAL (17:32)
[2018-05-10] MEDS: ONDANSETRON 4 MG INJ IV (18:56)
[2018-05-11] MEDS: SOD CHLORIDE 0.9% 1,000 ML IV ×3 (00:26→23:03)
[2018-05-11] MEDS: [UNRECOGNIZED DRUG - REMARK] XX ×3 (00:30→16:30)
[2018-05-11] MEDS: ACETYLCYSTEINE 20% 4 ML VIAL NEB ×4 (02:00→20:00)
[2018-05-11] MEDS: ALBUTEROL/IPRATROPIUM (NEB) 3 ML AMP HHN ×3 (02:10→23:59)
[2018-05-11 05:59] LABS: ADD MAN DIFF? NO
[2018-05-11] MEDS: PANTOPRAZOLE (EC) 40 MG TAB PO (06:00)
[2018-05-11] MEDS: DAPTOMYCIN 500 MG in SOD CHLORIDE 0.9% 100 ML IVPB (06:10)
[2018-05-11 06:21] LABS: WHITE BLOOD COUNT 15.1 10^3/ul (4.8-10.8)
[2018-05-11 06:21] LABS: BASOPHIL # 0.1 10^3/ul (0.0-0.1); BASOPHILS % 0.7 % (0.0-2.0); EOSINOPHILS # 0.3 10^3/ul (0.0-0.5); EOSINOPHILS % 2.2 % (0.0-7.0); HEMATOCRIT 32.8 % (42.0-52.0); LYMPHOCYTES # 3.4 10^3/ul (0.8-2.9); LYMPHOCYTES % 22.5 % (15.0-51.0); MEAN CORPUSCULAR HEMOGLOBIN 27.8 pg (29.0-33.0); MEAN CORPUSCULAR HGB CONC 33.5 g/dl (32.0-37.0); MEAN PLATELET VOLUME 8.2 fl (7.4-10.4); MONOCYTE # 0.9 10^3/ul (0.3-0.9); MONOCYTES % 5.9 % (0.0-11.0); NEUTROPHIL # 10.1 10^3/ul (1.6-7.5); NEUTROPHILS % 66.5 % (39.0-77.0); PLATELET COUNT 487 10^3/UL (140-415); RED BLOOD COUNT 3.95 10^6/ul (4.70-6.10); RED CELL DISTRIBUTION WIDTH 16.5 % (11.5-14.5)
[2018-05-11 06:39] LABS: MAGNESIUM 1.7 mg/dl (1.7-2.5)
[2018-05-11 06:39] LABS: PHOSPHORUS 3.8 mg/dl (2.5-4.9)
[2018-05-11] MEDS: ACCU-CHEK XX ×4 (07:30→21:00)
[2018-05-11 07:47] LABS: ANION GAP 4 (8-16); BLOOD UREA NITROGEN 14 mg/dl (7-20); CALCIUM 7.3 mg/dl (8.4-10.2); CARBON DIOXIDE 21 mmol/L (21-31); CHLORIDE 116 mmol/L (97-110); CREATININE 0.97 mg/dl (0.61-1.24); GLUCOSE 76 mg/dl (70-220); SODIUM 138 mmol/L (135-144)
[2018-05-11 07:51] LABS: POTASSIUM 2.8 mmol/L (3.5-5.1)
[2018-05-11] MEDS: INSULIN ASPART [NOVOLOG] 3 ML PEN SC ×4 (08:00→21:00)
[2018-05-11] MEDS: COLLAGENASE 5 GM (UD JAR) TOP ×2 (09:00→17:39)
[2018-05-11] MEDS: DOCUSATE SODIUM 10 MG/ML (10ML CUP) PO (09:35)
[2018-05-11] MEDS: POTASSIUM CHLORIDE (SR) 20 MEQ TAB PO ×2 (09:36→12:43)
[2018-05-11] MEDS: METHADONE (1 MG/ML 5 ML PO UD SYG) PO (09:37)
[2018-05-11] MEDS: BALSAM PERU/CASTOR OIL 60 GM TUBE TOP (09:44)
[2018-05-11] MEDS: ONDANSETRON 4 MG INJ IV (09:45)
[2018-05-11] MEDS: HYDROCODONE/APAP (5/325) TAB PO ×2 (11:15→19:59)
[2018-05-11 15:11] LABS: LACTIC ACID 0.6 mmol/L (0.5-2.0)
[2018-05-12] MEDS: [UNRECOGNIZED DRUG - REMARK] XX ×3 (00:30→16:30)
[2018-05-12] MEDS: ACETYLCYSTEINE 20% 4 ML VIAL NEB ×4 (02:00→19:09)
[2018-05-12 05:19] LABS: ADD MAN DIFF? NO
[2018-05-12 05:22] LABS: BASOPHIL # 0.1 10^3/ul (0.0-0.1); BASOPHILS % 0.7 % (0.0-2.0); EOSINOPHILS # 0.3 10^3/ul (0.0-0.5); EOSINOPHILS % 2.8 % (0.0-7.0); HEMATOCRIT 32.6 % (42.0-52.0); HEMOGLOBIN 10.7 g/dl (14.0-18.0); LYMPHOCYTES # 3.4 10^3/ul (0.8-2.9); LYMPHOCYTES % 30.2 % (15.0-51.0); MEAN CORPUSCULAR HEMOGLOBIN 27.2 pg (29.0-33.0); MEAN CORPUSCULAR HGB CONC 32.8 g/dl (32.0-37.0); MEAN PLATELET VOLUME 8.1 fl (7.4-10.4); MONOCYTE # 0.7 10^3/ul (0.3-0.9); MONOCYTES % 6.3 % (0.0-11.0); NEUTROPHIL # 6.5 10^3/ul (1.6-7.5); NEUTROPHILS % 57.7 % (39.0-77.0); PLATELET COUNT 482 10^3/UL (140-415); RED BLOOD COUNT 3.93 10^6/ul (4.70-6.10); RED CELL DISTRIBUTION WIDTH 16.7 % (11.5-14.5)
[2018-05-12 05:22] LABS: WHITE BLOOD COUNT 11.2 10^3/ul (4.8-10.8)
[2018-05-12 05:50] LABS: ANION GAP 3 (8-16); BLOOD UREA NITROGEN 13 mg/dl (7-20); CALCIUM 7.5 mg/dl (8.4-10.2); CARBON DIOXIDE 22 mmol/L (21-31); CHLORIDE 115 mmol/L (97-110); CREATININE 1.07 mg/dl (0.61-1.24); GLUCOSE 77 mg/dl (70-220); MAGNESIUM 1.6 mg/dl (1.7-2.5); POTASSIUM 3.4 mmol/L (3.5-5.1); SODIUM 137 mmol/L (135-144)
[2018-05-12 05:50] LABS: PHOSPHORUS 3.5 mg/dl (2.5-4.9)
[2018-05-12] MEDS: DAPTOMYCIN 500 MG in SOD CHLORIDE 0.9% 100 ML IVPB (06:13)
[2018-05-12] MEDS: PANTOPRAZOLE (EC) 40 MG TAB PO (06:13)
[2018-05-12] MEDS: INSULIN ASPART [NOVOLOG] 3 ML PEN SC ×4 (08:00→20:59)
[2018-05-12] MEDS: ACCU-CHEK XX ×4 (08:23→21:00)
[2018-05-12] MEDS: ALBUTEROL/IPRATROPIUM (NEB) 3 ML AMP HHN ×2 (08:56→19:08)
[2018-05-12] MEDS: BALSAM PERU/CASTOR OIL 60 GM TUBE TOP (09:43)
[2018-05-12] MEDS: POTASSIUM CHLORIDE 20 MEQ POWDER FOR ORAL SOLN PO (09:44)
[2018-05-12] MEDS: COLLAGENASE 5 GM (UD JAR) TOP (09:44)
[2018-05-12] MEDS: METHADONE (1 MG/ML 5 ML PO UD SYG) PO (09:52)
[2018-05-12] MEDS: SOD CHLORIDE 0.9% 1,000 ML IV ×2 (09:55→20:30)
[2018-05-12] MEDS: MAGNESIUM SULFATE 2 GM/50 ML 50 ML IVPB (10:19)
[2018-05-12] MEDS: CEPASTAT LOZENGE MT (11:20)
[2018-05-12] MEDS: HYDROCODONE/APAP (5/325) TAB PO (20:55)
[2018-05-13] MEDS: [UNRECOGNIZED DRUG - REMARK] XX ×3 (00:30→16:30)
[2018-05-13] MEDS: ALBUTEROL/IPRATROPIUM (NEB) 3 ML AMP HHN ×2 (01:39→20:19)
[2018-05-13] MEDS: ACETYLCYSTEINE 20% 4 ML VIAL NEB ×4 (01:39→20:00)
[2018-05-13] MEDS: SOD CHLORIDE 0.9% 1,000 ML IV ×2 (02:32→13:27)
[2018-05-13] MEDS: DAPTOMYCIN 500 MG in SOD CHLORIDE 0.9% 100 ML IVPB (06:01)
[2018-05-13] MEDS: PANTOPRAZOLE (EC) 40 MG TAB PO (06:01)
[2018-05-13] MEDS: ACCU-CHEK XX ×4 (07:30→21:00)
[2018-05-13] MEDS: INSULIN ASPART [NOVOLOG] 3 ML PEN SC ×4 (08:00→21:00)
[2018-05-13] MEDS: COLLAGENASE 5 GM (UD JAR) TOP ×3 (09:00→19:00)
[2018-05-13] MEDS: METHADONE (1 MG/ML 5 ML PO UD SYG) PO (09:40)
[2018-05-13] MEDS: BALSAM PERU/CASTOR OIL 60 GM TUBE TOP (09:43)
[2018-05-13] MEDS: HYDROCODONE/APAP (5/325) TAB PO ×2 (13:34→18:56)
[2018-05-13] MEDS: HEPARIN 5,000 UNIT/0.5 ML VIAL SC (21:27)
[2018-05-14] MEDS: [UNRECOGNIZED DRUG - REMARK] XX ×2 (00:30→08:30)
[2018-05-14] MEDS: ACETYLCYSTEINE 20% 4 ML VIAL NEB ×4 (02:00→20:00)
[2018-05-14] MEDS: SOD CHLORIDE 0.9% 1,000 ML IV ×3 (03:23→22:20)
[2018-05-14] MEDS: HYDROCODONE/APAP (5/325) TAB PO ×2 (03:29→22:20)
[2018-05-14] MEDS: PANTOPRAZOLE (EC) 40 MG TAB PO (06:23)
[2018-05-14] MEDS: DAPTOMYCIN 500 MG in SOD CHLORIDE 0.9% 100 ML IVPB (06:23)
[2018-05-14] MEDS: HEPARIN 5,000 UNIT/0.5 ML VIAL SC ×3 (06:31→22:13)
[2018-05-14] MEDS: INSULIN ASPART [NOVOLOG] 3 ML PEN SC ×4 (08:00→22:08)
[2018-05-14] MEDS: ACCU-CHEK XX ×4 (08:27→22:09)
[2018-05-14] MEDS: BALSAM PERU/CASTOR OIL 60 GM TUBE TOP (08:29)
[2018-05-14] MEDS: COLLAGENASE 5 GM (UD JAR) TOP (08:29)
[2018-05-14] MEDS: METHADONE (1 MG/ML 5 ML PO UD SYG) PO (09:53)
[2018-05-15] MEDS: ACETYLCYSTEINE 20% 4 ML VIAL NEB ×4 (01:59→19:55)
[2018-05-15] MEDS: PANTOPRAZOLE (EC) 40 MG TAB PO (05:39)
[2018-05-15] MEDS: DAPTOMYCIN 500 MG in SOD CHLORIDE 0.9% 100 ML IVPB (05:39)
[2018-05-15] MEDS: HEPARIN 5,000 UNIT/0.5 ML VIAL SC (05:41)
[2018-05-15 07:05] LABS: ADD MAN DIFF? NO
[2018-05-15 07:11] LABS: WHITE BLOOD COUNT 10.4 10^3/ul (4.8-10.8)
[2018-05-15 07:11] LABS: BASOPHIL # 0.1 10^3/ul (0.0-0.1); BASOPHILS % 1.2 % (0.0-2.0); EOSINOPHILS # 0.4 10^3/ul (0.0-0.5); EOSINOPHILS % 3.9 % (0.0-7.0); HEMATOCRIT 33.9 % (42.0-52.0); HEMOGLOBIN 11.2 g/dl (14.0-18.0); LYMPHOCYTES # 3.8 10^3/ul (0.8-2.9); LYMPHOCYTES % 36.4 % (15.0-51.0); MEAN CORPUSCULAR HEMOGLOBIN 27.4 pg (29.0-33.0); MEAN CORPUSCULAR VOLUME 82.9 fl (82.0-101.0); MEAN PLATELET VOLUME 8.5 fl (7.4-10.4); MONOCYTE # 0.8 10^3/ul (0.3-0.9); MONOCYTES % 7.9 % (0.0-11.0); NEUTROPHIL # 5.1 10^3/ul (1.6-7.5); NEUTROPHILS % 48.7 % (39.0-77.0); PLATELET COUNT 408 10^3/UL (140-415); RED BLOOD COUNT 4.09 10^6/ul (4.70-6.10); RED CELL DISTRIBUTION WIDTH 16.9 % (11.5-14.5)
[2018-05-15 07:42] LABS: ALANINE AMINOTRANSFERASE 38 IU/L (13-69); ALBUMIN 1.4 g/dl (3.3-4.9); ALBUMIN/GLOBULIN RATIO 0.53; ALKALINE PHOSPHATASE 178 IU/L (42-121); ASPARTATE AMINO TRANSFERASE 30 IU/L (15-46); BLOOD UREA NITROGEN 13 mg/dl (7-20); CALCIUM 7.8 mg/dl (8.4-10.2); CARBON DIOXIDE 23 mmol/L (21-31); CHLORIDE 113 mmol/L (97-110); CREATININE 1.07 mg/dl (0.61-1.24); GLUCOSE 80 mg/dl (70-220); MAGNESIUM 1.7 mg/dl (1.7-2.5); POTASSIUM 3.8 mmol/L (3.5-5.1); SODIUM 136 mmol/L (135-144)
[2018-05-15] MEDS: ACCU-CHEK XX ×4 (07:47→21:00)
[2018-05-15] MEDS: INSULIN ASPART [NOVOLOG] 3 ML PEN SC ×4 (08:00→21:00)
[2018-05-15] MEDS: COLLAGENASE 5 GM (UD JAR) TOP (09:00)
[2018-05-15] MEDS: METHADONE (1 MG/ML 5 ML PO UD SYG) PO (09:22)
[2018-05-15 09:29] LABS: ANION GAP 0 (5-13)
[2018-05-15] MEDS: SOD CHLORIDE 0.9% 1,000 ML IV ×3 (10:16→21:19)
[2018-05-15] MEDS: BALSAM PERU/CASTOR OIL 60 GM TUBE TOP (10:20)
[2018-05-15] MEDS ORDERED: HEPARIN 5,000 UNIT/0.5 ML VIAL ×2 (14:06→21:46)
[2018-05-15] MEDS: HEPARIN 5,000 UNIT/1 ML VIAL SC ×2 (14:13→22:06)
[2018-05-15] MEDS: IOHEXOL 14.3 MG(I)/ML (ADULT) BTL PO (14:30)
[2018-05-15] MEDS: SOD CHLORIDE 0.9% 100 ML (16:57)
[2018-05-15] MEDS: IODIXANOL LOCM 100 ML BTL (16:57)
[2018-05-15] MEDS: HYDROCODONE/APAP (5/325) TAB PO (18:32)
[2018-05-15] MEDS: ALBUTEROL/IPRATROPIUM (NEB) 3 ML AMP HHN (19:55)
[2018-05-16] MEDS: ACETYLCYSTEINE 20% 4 ML VIAL NEB ×4 (01:54→20:00)
[2018-05-16] MEDS ORDERED: HEPARIN 5,000 UNIT/0.5 ML VIAL ×3 (05:41→21:18)
[2018-05-16] MEDS: HEPARIN 5,000 UNIT/1 ML VIAL SC ×3 (06:04→21:37)
[2018-05-16] MEDS: PANTOPRAZOLE (EC) 40 MG TAB PO (06:04)
[2018-05-16] MEDS: DAPTOMYCIN 500 MG in SOD CHLORIDE 0.9% 100 ML IVPB (06:05)
[2018-05-16] MEDS: SOD CHLORIDE 0.9% 1,000 ML IV ×2 (06:09→17:02)
[2018-05-16] MEDS: ACCU-CHEK XX ×4 (07:59→21:00)
[2018-05-16] MEDS: INSULIN ASPART [NOVOLOG] 3 ML PEN SC ×4 (08:00→21:00)
[2018-05-16 08:16] LABS: CREATINE KINASE 51 IU/L (23-200)
[2018-05-16] MEDS: BALSAM PERU/CASTOR OIL 60 GM TUBE TOP (08:49)
[2018-05-16] MEDS: COLLAGENASE 5 GM (UD JAR) TOP (08:51)
[2018-05-16] MEDS: METHADONE (1 MG/ML 5 ML PO UD SYG) PO (10:46)
[2018-05-16] MEDS: HYDROCODONE/APAP (5/325) TAB PO (16:15)
[2018-05-16] MEDS: CYCLOBENZAPRINE 10 MG TAB PO (21:36)
[2018-05-17] MEDS: ACETYLCYSTEINE 20% 4 ML VIAL NEB ×5 (02:00→19:51)
[2018-05-17] MEDS: SOD CHLORIDE 0.9% 1,000 ML IV ×3 (03:08→21:15)
[2018-05-17] MEDS ORDERED: HEPARIN 5,000 UNIT/0.5 ML VIAL ×3 (05:06→21:03)
[2018-05-17] MEDS: DAPTOMYCIN 500 MG in SOD CHLORIDE 0.9% 100 ML IVPB (06:08)
[2018-05-17] MEDS: HEPARIN 5,000 UNIT/1 ML VIAL SC ×3 (06:08→21:13)
[2018-05-17] MEDS: PANTOPRAZOLE (EC) 40 MG TAB PO (06:08)
[2018-05-17] MEDS: ACCU-CHEK XX ×4 (07:00→21:09)
[2018-05-17 07:38] LABS: ADD MAN DIFF? NO
[2018-05-17] MEDS: INSULIN ASPART [NOVOLOG] 3 ML PEN SC ×4 (08:00→21:00)
[2018-05-17] MEDS: METHADONE (1 MG/ML 5 ML PO UD SYG) PO (08:04)
[2018-05-17 08:06] LABS: ALANINE AMINOTRANSFERASE 33 IU/L (13-69); ALBUMIN 1.4 g/dl (3.3-4.9); ALKALINE PHOSPHATASE 143 IU/L (42-121); ANION GAP 1 (5-13); ASPARTATE AMINO TRANSFERASE 35 IU/L (15-46); BLOOD UREA NITROGEN 13 mg/dl (7-20); CALCIUM 7.6 mg/dl (8.4-10.2); CARBON DIOXIDE 20 mmol/L (21-31); CHLORIDE 114 mmol/L (97-110); CREATININE 1.01 mg/dl (0.61-1.24); GLUCOSE 65 mg/dl (70-220); POTASSIUM 3.9 mmol/L (3.5-5.1); SODIUM 135 mmol/L (135-144); TOTAL PROTEIN 3.7 g/dl (6.1-8.1)
[2018-05-17] MEDS: CYCLOBENZAPRINE 10 MG TAB PO ×2 (09:00→21:09)
[2018-05-17] MEDS: BALSAM PERU/CASTOR OIL 60 GM TUBE TOP (09:00)
[2018-05-17] MEDS: COLLAGENASE 5 GM (UD JAR) TOP (09:00)
[2018-05-17 09:38] LABS: BASOPHIL # 0.1 10^3/ul (0.0-0.1); EOSINOPHILS # 0.3 10^3/ul (0.0-0.5); EOSINOPHILS % 3.4 % (0.0-7.0); HEMOGLOBIN 10.4 g/dl (14.0-18.0); LYMPHOCYTES # 2.5 10^3/ul (0.8-2.9); LYMPHOCYTES % 27.6 % (15.0-51.0); MEAN CORPUSCULAR HEMOGLOBIN 27.5 pg (29.0-33.0); MEAN CORPUSCULAR HGB CONC 33.5 g/dl (32.0-37.0); MEAN PLATELET VOLUME 8.7 fl (7.4-10.4); MONOCYTE # 0.6 10^3/ul (0.3-0.9); MONOCYTES % 6.9 % (0.0-11.0); NEUTROPHIL # 5.5 10^3/ul (1.6-7.5); NEUTROPHILS % 60.3 % (39.0-77.0); PLATELET COUNT 307 10^3/UL (140-415); RED BLOOD COUNT 3.78 10^6/ul (4.70-6.10); RED CELL DISTRIBUTION WIDTH 17.1 % (11.5-14.5)
[2018-05-18] MEDS: HYDROCODONE/APAP (5/325) TAB PO (00:38)
[2018-05-18] MEDS: ACETYLCYSTEINE 20% 4 ML VIAL NEB ×4 (01:40→20:00)
[2018-05-18] MEDS ORDERED: HEPARIN 5,000 UNIT/0.5 ML VIAL ×3 (05:37→20:53)
[2018-05-18] MEDS: DAPTOMYCIN 500 MG in SOD CHLORIDE 0.9% 100 ML IVPB (05:41)
[2018-05-18] MEDS: PANTOPRAZOLE (EC) 40 MG TAB PO (05:41)
[2018-05-18] MEDS: HEPARIN 5,000 UNIT/1 ML VIAL SC ×3 (05:45→21:05)
[2018-05-18] MEDS: INSULIN ASPART [NOVOLOG] 3 ML PEN SC ×4 (08:00→21:05)
[2018-05-18] MEDS: SOD CHLORIDE 0.9% 1,000 ML IV ×3 (08:30→17:54)
[2018-05-18] MEDS: ACCU-CHEK XX ×4 (08:31→21:00)
[2018-05-18] MEDS: BALSAM PERU/CASTOR OIL 60 GM TUBE TOP (09:29)
[2018-05-18] MEDS: CYCLOBENZAPRINE 10 MG TAB PO ×3 (09:30→20:58)
[2018-05-18] MEDS: COLLAGENASE 5 GM (UD JAR) TOP (09:30)
[2018-05-18] MEDS: METHADONE (1 MG/ML 5 ML PO UD SYG) PO (09:31)
[2018-05-19] MEDS: ACETYLCYSTEINE 20% 4 ML VIAL NEB ×5 (02:00→20:00)
[2018-05-19] MEDS: SOD CHLORIDE 0.9% 1,000 ML IV ×3 (03:20→23:03)
[2018-05-19] MEDS: DAPTOMYCIN 500 MG in SOD CHLORIDE 0.9% 100 ML IVPB (05:14)
[2018-05-19] MEDS: PANTOPRAZOLE (EC) 40 MG TAB PO (05:14)
[2018-05-19] MEDS ORDERED: HEPARIN 5,000 UNIT/0.5 ML VIAL ×4 (05:18→20:42)
[2018-05-19] MEDS: HEPARIN 5,000 UNIT/1 ML VIAL SC ×3 (05:42→21:04)
[2018-05-19 06:34] LABS: ADD MAN DIFF? NO
[2018-05-19 06:38] LABS: BASOPHIL # 0.1 10^3/ul (0.0-0.1); BASOPHILS % 1.1 % (0.0-2.0); EOSINOPHILS # 0.5 10^3/ul (0.0-0.5); EOSINOPHILS % 5.8 % (0.0-7.0); HEMOGLOBIN 10.6 g/dl (14.0-18.0); LYMPHOCYTES # 2.9 10^3/ul (0.8-2.9); LYMPHOCYTES % 35.9 % (15.0-51.0); MEAN CORPUSCULAR HEMOGLOBIN 27.1 pg (29.0-33.0); MEAN CORPUSCULAR HGB CONC 33.1 g/dl (32.0-37.0); MEAN CORPUSCULAR VOLUME 81.8 fl (82.0-101.0); MEAN PLATELET VOLUME 8.6 fl (7.4-10.4); MONOCYTE # 0.7 10^3/ul (0.3-0.9); MONOCYTES % 8.1 % (0.0-11.0); NEUTROPHIL # 3.9 10^3/ul (1.6-7.5); NEUTROPHILS % 48.7 % (39.0-77.0); PLATELET COUNT 270 10^3/UL (140-415); RED BLOOD COUNT 3.91 10^6/ul (4.70-6.10); RED CELL DISTRIBUTION WIDTH 17.5 % (11.5-14.5)
[2018-05-19] MEDS: ACCU-CHEK XX ×4 (07:00→21:00)
[2018-05-19 07:03] LABS: ALANINE AMINOTRANSFERASE 7 IU/L (13-69); ALBUMIN 1.6 g/dl (3.3-4.9); ALBUMIN/GLOBULIN RATIO 0.66; ALKALINE PHOSPHATASE 156 IU/L (42-121); ANION GAP 0 (5-13); ASPARTATE AMINO TRANSFERASE 31 IU/L (15-46); BLOOD UREA NITROGEN 13 mg/dl (7-20); CALCIUM 7.6 mg/dl (8.4-10.2); CARBON DIOXIDE 25 mmol/L (21-31); CHLORIDE 113 mmol/L (97-110); CREATININE 1.05 mg/dl (0.61-1.24); GLUCOSE 76 mg/dl (70-220); POTASSIUM 3.3 mmol/L (3.5-5.1); SODIUM 138 mmol/L (135-144)
[2018-05-19] MEDS: ALBUTEROL/IPRATROPIUM (NEB) 3 ML AMP HHN ×3 (07:49→20:57)
[2018-05-19] MEDS: INSULIN ASPART [NOVOLOG] 3 ML PEN SC ×4 (08:00→21:00)
[2018-05-19] MEDS: CYCLOBENZAPRINE 10 MG TAB PO ×3 (08:39→21:04)
[2018-05-19] MEDS: BALSAM PERU/CASTOR OIL 60 GM TUBE TOP (08:39)
[2018-05-19] MEDS: COLLAGENASE 5 GM (UD JAR) TOP (08:39)
[2018-05-19] MEDS: METHADONE (1 MG/ML 5 ML PO UD SYG) PO (08:42)
[2018-05-19] MEDS: POTASSIUM CHLORIDE 20 MEQ POWDER FOR ORAL SOLN PO (17:37)
[2018-05-20] MEDS: ACETYLCYSTEINE 20% 4 ML VIAL NEB ×4 (01:49→19:57)
[2018-05-20] MEDS ORDERED: HEPARIN 5,000 UNIT/0.5 ML VIAL ×3 (05:04→21:08)
[2018-05-20] MEDS: DAPTOMYCIN 500 MG in SOD CHLORIDE 0.9% 100 ML IVPB (05:11)
[2018-05-20] MEDS: PANTOPRAZOLE (EC) 40 MG TAB PO (05:11)
[2018-05-20] MEDS: HEPARIN 5,000 UNIT/1 ML VIAL SC ×3 (05:13→21:22)
[2018-05-20] MEDS: ACCU-CHEK XX ×4 (07:00→21:00)
[2018-05-20] MEDS: INSULIN ASPART [NOVOLOG] 3 ML PEN SC ×4 (07:59→20:17)
[2018-05-20] MEDS: CYCLOBENZAPRINE 10 MG TAB PO ×3 (08:14→20:15)
[2018-05-20] MEDS: METHADONE (1 MG/ML 5 ML PO UD SYG) PO (08:15)
[2018-05-20] MEDS: SOD CHLORIDE 0.9% 1,000 ML IV ×2 (08:30→17:19)
[2018-05-20] MEDS: COLLAGENASE 5 GM (UD JAR) TOP (12:23)
[2018-05-20] MEDS: BALSAM PERU/CASTOR OIL 60 GM TUBE TOP (12:25)
[2018-05-20 19:01] LABS: ADD UMIC YES; UR ASCORBIC ACID NEGATIVE (NEGATIVE); UR BACTERIA MODERATE /HPF (NONE SEEN); UR BILIRUBIN (Dip) NEGATIVE (NEGATIVE); UR BLOOD (Dip) 1+ mg/dL (NEGATIVE); UR BUDDING YEAST FEW /HPF (NONE SEEN); UR CLARITY SLIGHTLY CLOUDY (CLEAR); UR COLOR YELLOW (YELLOW); UR GLUCOSE (Dip) 1+ mg/dL (NEGATIVE); UR KETONES (Dip) NEGATIVE (NEGATIVE); UR LEUKOCYTE ESTERASE (Dip) TRACE Leu/ul (NEGATIVE); UR NITRITE (Dip) POSITIVE (NEGATIVE); UR RBC 6 /HPF (0-5); UR TOTAL PROTEIN (Dip) 3+ mg/dl (NEGATIVE); UR UROBILINOGEN (Dip) NEGATIVE (NEGATIVE); UR WBC 33 /HPF (0-5)
[2018-05-20] MEDS: ALBUTEROL/IPRATROPIUM (NEB) 3 ML AMP HHN (19:57)
[2018-05-21] MEDS: ACETYLCYSTEINE 20% 4 ML VIAL NEB ×4 (02:00→20:00)
[2018-05-21] MEDS: SOD CHLORIDE 0.9% 1,000 ML IV ×3 (04:30→16:10)
[2018-05-21] MEDS ORDERED: HEPARIN 5,000 UNIT/0.5 ML VIAL ×3 (04:53→21:20)
[2018-05-21] MEDS: PANTOPRAZOLE (EC) 40 MG TAB PO (05:04)
[2018-05-21] MEDS: DAPTOMYCIN 500 MG in SOD CHLORIDE 0.9% 100 ML IVPB (05:04)
[2018-05-21] MEDS: HEPARIN 5,000 UNIT/1 ML VIAL SC ×3 (05:06→21:46)
[2018-05-21] MEDS: ACCU-CHEK XX ×4 (07:00→21:00)
[2018-05-21 07:28] LABS: ADD MAN DIFF? NO
[2018-05-21 07:32] LABS: WHITE BLOOD COUNT 8.2 10^3/ul (4.8-10.8)
[2018-05-21 07:33] LABS: BASOPHIL # 0.1 10^3/ul (0.0-0.1); BASOPHILS % 0.9 % (0.0-2.0); EOSINOPHILS # 0.5 10^3/ul (0.0-0.5); EOSINOPHILS % 6.5 % (0.0-7.0); HEMATOCRIT 30.8 % (42.0-52.0); HEMOGLOBIN 10.1 g/dl (14.0-18.0); LYMPHOCYTES # 2.9 10^3/ul (0.8-2.9); LYMPHOCYTES % 35.5 % (15.0-51.0); MEAN CORPUSCULAR HEMOGLOBIN 27.3 pg (29.0-33.0); MEAN CORPUSCULAR HGB CONC 32.8 g/dl (32.0-37.0); MEAN CORPUSCULAR VOLUME 83.2 fl (82.0-101.0); MONOCYTE # 0.7 10^3/ul (0.3-0.9); MONOCYTES % 8.1 % (0.0-11.0); NEUTROPHILS % 48.6 % (39.0-77.0); PLATELET COUNT 247 10^3/UL (140-415); RED CELL DISTRIBUTION WIDTH 17.2 % (11.5-14.5)
[2018-05-21] MEDS: CYCLOBENZAPRINE 10 MG TAB PO ×3 (07:57→21:47)
[2018-05-21] MEDS: METHADONE (1 MG/ML 5 ML PO UD SYG) PO (07:57)
[2018-05-21 07:58] LABS: ALANINE AMINOTRANSFERASE 19 IU/L (13-69); ALBUMIN 1.4 g/dl (3.3-4.9); ALKALINE PHOSPHATASE 156 IU/L (42-121); ANION GAP 4 (5-13); ASPARTATE AMINO TRANSFERASE 32 IU/L (15-46); BLOOD UREA NITROGEN 12 mg/dl (7-20); CALCIUM 7.6 mg/dl (8.4-10.2); CARBON DIOXIDE 24 mmol/L (21-31); CHLORIDE 110 mmol/L (97-110); CREATININE 1.16 mg/dl (0.61-1.24); Estimated GFR > 60 mL/min (>60); GLUCOSE 61 mg/dl (70-220); POTASSIUM 3.4 mmol/L (3.5-5.1); SODIUM 138 mmol/L (135-144); TOTAL PROTEIN 3.7 g/dl (6.1-8.1)
[2018-05-21] MEDS: INSULIN ASPART [NOVOLOG] 3 ML PEN SC ×4 (08:00→21:00)
[2018-05-21] MEDS: BALSAM PERU/CASTOR OIL 60 GM TUBE TOP (09:00)
[2018-05-21] MEDS: COLLAGENASE 5 GM (UD JAR) TOP (09:00)
[2018-05-22] MEDS: SOD CHLORIDE 0.9% 1,000 ML IV ×4 (00:30→12:29)
[2018-05-22] MEDS: ACETYLCYSTEINE 20% 4 ML VIAL NEB ×4 (02:00→19:47)
[2018-05-22] MEDS ORDERED: HEPARIN 5,000 UNIT/0.5 ML VIAL ×3 (04:54→20:43)
[2018-05-22] MEDS: DAPTOMYCIN 500 MG in SOD CHLORIDE 0.9% 100 ML IVPB (05:08)
[2018-05-22] MEDS: PANTOPRAZOLE (EC) 40 MG TAB PO (05:08)
[2018-05-22] MEDS: HEPARIN 5,000 UNIT/1 ML VIAL SC ×3 (05:12→20:44)
[2018-05-22] MEDS: ACCU-CHEK XX ×4 (07:00→20:41)
[2018-05-22] MEDS: INSULIN ASPART [NOVOLOG] 3 ML PEN SC ×4 (08:00→20:40)
[2018-05-22] MEDS: CYCLOBENZAPRINE 10 MG TAB PO ×3 (08:47→20:41)
[2018-05-22] MEDS: COLLAGENASE 5 GM (UD JAR) TOP (08:48)
[2018-05-22] MEDS: METHADONE (1 MG/ML 5 ML PO UD SYG) PO (08:49)
[2018-05-22] MEDS: BALSAM PERU/CASTOR OIL 60 GM TUBE TOP (08:50)
[2018-05-22] MEDS: CEFEPIME 1GM/50 ML (PMX) 50 ML IVPB (17:34)
[2018-05-22] MEDS: D5W-0.45 NACL + KCL 20 MEQ 1,000 ML IV (18:47)
[2018-05-23] MEDS: CEFEPIME 1GM/50 ML (PMX) 50 ML IVPB ×3 (01:26→21:17)
[2018-05-23] MEDS: ACETYLCYSTEINE 20% 4 ML VIAL NEB ×3 (02:00→13:17)
[2018-05-23] MEDS ORDERED: HEPARIN 5,000 UNIT/0.5 ML VIAL ×3 (05:13→20:42)
[2018-05-23] MEDS: PANTOPRAZOLE (EC) 40 MG TAB PO (05:16)
[2018-05-23] MEDS: HEPARIN 5,000 UNIT/1 ML VIAL SC ×3 (05:17→21:20)
[2018-05-23] MEDS: DAPTOMYCIN 500 MG in SOD CHLORIDE 0.9% 100 ML IVPB (05:19)
[2018-05-23] MEDS: ACCU-CHEK XX ×4 (07:00→21:00)
[2018-05-23] MEDS: INSULIN ASPART [NOVOLOG] 3 ML PEN SC ×4 (08:00→21:00)
[2018-05-23] MEDS: CYCLOBENZAPRINE 10 MG TAB PO ×3 (08:32→21:17)
[2018-05-23] MEDS: COLLAGENASE 5 GM (UD JAR) TOP (08:32)
[2018-05-23] MEDS: METHADONE (1 MG/ML 5 ML PO UD SYG) PO (08:32)
[2018-05-23] MEDS: BALSAM PERU/CASTOR OIL 60 GM TUBE TOP (08:34)
[2018-05-23 08:39] LABS: ADD MAN DIFF? NO
[2018-05-23 08:43] LABS: WHITE BLOOD COUNT 6.8 10^3/ul (4.8-10.8)
[2018-05-23 08:43] LABS: BASOPHIL # 0.1 10^3/ul (0.0-0.1); BASOPHILS % 0.7 % (0.0-2.0); EOSINOPHILS # 0.8 10^3/ul (0.0-0.5); EOSINOPHILS % 11.2 % (0.0-7.0); HEMATOCRIT 29.8 % (42.0-52.0); HEMOGLOBIN 9.8 g/dl (14.0-18.0); LYMPHOCYTES # 2.2 10^3/ul (0.8-2.9); LYMPHOCYTES % 32.9 % (15.0-51.0); MEAN CORPUSCULAR HEMOGLOBIN 27.7 pg (29.0-33.0); MEAN CORPUSCULAR HGB CONC 32.9 g/dl (32.0-37.0); MEAN CORPUSCULAR VOLUME 84.2 fl (82.0-101.0); MEAN PLATELET VOLUME 8.6 fl (7.4-10.4); MONOCYTE # 0.5 10^3/ul (0.3-0.9); MONOCYTES % 7.2 % (0.0-11.0); NEUTROPHIL # 3.2 10^3/ul (1.6-7.5); NEUTROPHILS % 47.7 % (39.0-77.0); PLATELET COUNT 196 10^3/UL (140-415); RED BLOOD COUNT 3.54 10^6/ul (4.70-6.10); RED CELL DISTRIBUTION WIDTH 16.9 % (11.5-14.5)
[2018-05-23 09:09] LABS: CREATINE KINASE 89 IU/L (23-200)
[2018-05-23 09:15] LABS: ALANINE AMINOTRANSFERASE 25 IU/L (13-69); ALBUMIN 1.3 g/dl (3.3-4.9); ALBUMIN/GLOBULIN RATIO 0.61; ALKALINE PHOSPHATASE 153 IU/L (42-121); ANION GAP 0 (5-13); ASPARTATE AMINO TRANSFERASE 25 IU/L (15-46); BLOOD UREA NITROGEN 11 mg/dl (7-20); CALCIUM 7.3 mg/dl (8.4-10.2); CARBON DIOXIDE 27 mmol/L (21-31); CHLORIDE 111 mmol/L (97-110); CREATININE 1.02 mg/dl (0.61-1.24); Estimated GFR > 60 mL/min (>60); GLUCOSE 111 mg/dl (70-220); POTASSIUM 3.4 mmol/L (3.5-5.1); SODIUM 138 mmol/L (135-144); TOTAL PROTEIN 3.4 g/dl (6.1-8.1)
[2018-05-23] MEDS: D5W-0.45 NACL + KCL 20 MEQ 1,000 ML IV ×2 (14:30→17:13)
[2018-05-23] MEDS: HYDROCODONE/APAP (5/325) TAB PO (21:27)
[2018-05-24] MEDS: ALBUTEROL/IPRATROPIUM (NEB) 3 ML AMP HHN ×2 (00:33→21:16)
[2018-05-24] MEDS: HYDROCODONE/APAP (5/325) TAB PO (02:58)
[2018-05-24] MEDS: CEPASTAT LOZENGE MT ×2 (03:39→20:54)
[2018-05-24] MEDS ORDERED: HEPARIN 5,000 UNIT/0.5 ML VIAL ×3 (05:05→19:52)
[2018-05-24] MEDS: DAPTOMYCIN 500 MG in SOD CHLORIDE 0.9% 100 ML IVPB (05:18)
[2018-05-24] MEDS: PANTOPRAZOLE (EC) 40 MG TAB PO (05:18)
[2018-05-24] MEDS: HEPARIN 5,000 UNIT/1 ML VIAL SC ×3 (05:19→21:11)
[2018-05-24] MEDS: ACCU-CHEK XX ×4 (07:00→21:27)
[2018-05-24] MEDS: CEFEPIME 1GM/50 ML (PMX) 50 ML IVPB ×2 (08:39→21:25)
[2018-05-24] MEDS: CYCLOBENZAPRINE 10 MG TAB PO ×3 (08:40→20:54)
[2018-05-24] MEDS: COLLAGENASE 5 GM (UD JAR) TOP (08:40)
[2018-05-24] MEDS: METHADONE (1 MG/ML 5 ML PO UD SYG) PO (08:40)
[2018-05-24] MEDS: BALSAM PERU/CASTOR OIL 60 GM TUBE TOP (08:41)
[2018-05-24] MEDS: INSULIN ASPART [NOVOLOG] 3 ML PEN SC ×4 (08:47→20:53)
[2018-05-24 11:57] LABS: ADD MAN DIFF? NO
[2018-05-24 12:00] LABS: WHITE BLOOD COUNT 6.9 10^3/ul (4.8-10.8)
[2018-05-24 12:00] LABS: BASOPHILS % 0.6 % (0.0-2.0); EOSINOPHILS # 0.7 10^3/ul (0.0-0.5); EOSINOPHILS % 10.4 % (0.0-7.0); HEMATOCRIT 27.9 % (42.0-52.0); HEMOGLOBIN 9.1 g/dl (14.0-18.0); LYMPHOCYTES # 2.3 10^3/ul (0.8-2.9); LYMPHOCYTES % 33.5 % (15.0-51.0); MEAN CORPUSCULAR HEMOGLOBIN 27.4 pg (29.0-33.0); MEAN CORPUSCULAR HGB CONC 32.6 g/dl (32.0-37.0); MEAN PLATELET VOLUME 8.9 fl (7.4-10.4); MONOCYTE # 0.5 10^3/ul (0.3-0.9); MONOCYTES % 7.2 % (0.0-11.0); NEUTROPHIL # 3.3 10^3/ul (1.6-7.5); NEUTROPHILS % 47.7 % (39.0-77.0); PLATELET COUNT 194 10^3/UL (140-415); RED BLOOD COUNT 3.32 10^6/ul (4.70-6.10); RED CELL DISTRIBUTION WIDTH 17.1 % (11.5-14.5)
[2018-05-24] MEDS: ARTIFICIAL TEARS 15 ML OPH BOTH EYES ×3 (12:28→20:54)
[2018-05-24 12:30] LABS: ANION GAP 0 (5-13); BLOOD UREA NITROGEN 15 mg/dl (7-20); CALCIUM 7.3 mg/dl (8.4-10.2); CARBON DIOXIDE 29 mmol/L (21-31); CHLORIDE 106 mmol/L (97-110); CREATININE 1.15 mg/dl (0.61-1.24); Estimated GFR > 60 mL/min (>60); GLUCOSE 186 mg/dl (70-220); POTASSIUM 3.7 mmol/L (3.5-5.1); SODIUM 135 mmol/L (135-144)
[2018-05-24] MEDS: D5W-0.45 NACL + KCL 20 MEQ 1,000 ML IV (14:41)
[2018-05-24] MEDS: SOD CHLORIDE 0.9% 1,000 ML IV (16:36)
[2018-05-24] MEDS: clonAZEPAM 0.5 MG TAB PO (17:17)
[2018-05-24] MEDS ORDERED: ACETYLCYSTEINE 20% 4 ML VIAL (21:22)
[2018-05-24] MEDS ORDERED: ACETYLCYSTEINE 20% 4 ML VIAL NEB (21:30)
[2018-05-24] MEDS: LEVALBUTEROL (NEB) 0.63 MG/3 ML AMP HHN (22:51)
[2018-05-24] MEDS: IPRATROPIUM (NEB) 0.5 MG/2.5 ML AMP HHN (22:51)
[2018-05-24] MEDS: ACETYLCYSTEINE 20% 4 ML VIAL NEB (23:04)
[2018-05-24 23:36] LABS: AADO2 Arterial 161.6 mmHg (7.0-24.0); Allen Test ACCEPTAB; Arterial Base Excess 1.8 mmol/L (-3.0-3); Arterial Blood Gas Oxygen Sat 93.5 mmHG (95.0-98.0); Arterial COHb 0.3 % (0.0-3.0); Arterial Fraction of Oxyhgb 92.8 % (93.0-99.0); Arterial HCO3 26.8 mmol/L (22.0-26.0); Arterial MetHb 0.4 % (0.0-1.5); Arterial pCO2 43.1 mmhg (35-45); MODE NASAL CANNULA; Site Left Radial
[2018-05-25] MEDS ORDERED: HEPARIN 5,000 UNIT/0.5 ML VIAL ×3 (04:40→20:11)
[2018-05-25] MEDS: DAPTOMYCIN 500 MG in SOD CHLORIDE 0.9% 100 ML IVPB (05:29)
[2018-05-25] MEDS: HEPARIN 5,000 UNIT/1 ML VIAL SC ×3 (05:30→21:27)
[2018-05-25] MEDS: PANTOPRAZOLE (EC) 40 MG TAB PO (05:31)
[2018-05-25 06:55] LABS: ADD MAN DIFF? NO
[2018-05-25 06:56] LABS: WHITE BLOOD COUNT 7.5 10^3/ul (4.8-10.8)
[2018-05-25 06:56] LABS: BASOPHILS % 0.4 % (0.0-2.0); EOSINOPHILS # 0.7 10^3/ul (0.0-0.5); EOSINOPHILS % 9.6 % (0.0-7.0); HEMATOCRIT 28.4 % (42.0-52.0); HEMOGLOBIN 9.2 g/dl (14.0-18.0); LYMPHOCYTES # 3.2 10^3/ul (0.8-2.9); LYMPHOCYTES % 42.7 % (15.0-51.0); MEAN CORPUSCULAR HEMOGLOBIN 27.5 pg (29.0-33.0); MEAN CORPUSCULAR HGB CONC 32.4 g/dl (32.0-37.0); MEAN CORPUSCULAR VOLUME 84.8 fl (82.0-101.0); MEAN PLATELET VOLUME 9.1 fl (7.4-10.4); MONOCYTE # 0.7 10^3/ul (0.3-0.9); MONOCYTES % 8.7 % (0.0-11.0); NEUTROPHIL # 2.8 10^3/ul (1.6-7.5); NEUTROPHILS % 37.8 % (39.0-77.0); PLATELET COUNT 197 10^3/UL (140-415); RED BLOOD COUNT 3.35 10^6/ul (4.70-6.10); RED CELL DISTRIBUTION WIDTH 17.1 % (11.5-14.5)
[2018-05-25] MEDS: ACCU-CHEK XX ×4 (07:00→21:26)
[2018-05-25 07:53] LABS: ALANINE AMINOTRANSFERASE 14 IU/L (13-69); ALBUMIN 1.3 g/dl (3.3-4.9); ALBUMIN/GLOBULIN RATIO 0.59; ALKALINE PHOSPHATASE 140 IU/L (42-121); ANION GAP 1 (5-13); ASPARTATE AMINO TRANSFERASE 19 IU/L (15-46); BLOOD UREA NITROGEN 17 mg/dl (7-20); CALCIUM 7.5 mg/dl (8.4-10.2); CARBON DIOXIDE 28 mmol/L (21-31); CHLORIDE 106 mmol/L (97-110); CREATININE 1.23 mg/dl (0.61-1.24); Estimated GFR > 60 mL/min (>60); GLUCOSE 111 mg/dl (70-220); POTASSIUM 3.6 mmol/L (3.5-5.1); SODIUM 135 mmol/L (135-144); TOTAL PROTEIN 3.5 g/dl (6.1-8.1)
[2018-05-25] MEDS: INSULIN ASPART [NOVOLOG] 3 ML PEN SC ×4 (08:00→20:27)
[2018-05-25] MEDS: COLLAGENASE 5 GM (UD JAR) TOP (08:35)
[2018-05-25] MEDS: BALSAM PERU/CASTOR OIL 60 GM TUBE TOP (08:35)
[2018-05-25] MEDS: ARTIFICIAL TEARS 15 ML OPH BOTH EYES ×4 (08:37→20:28)
[2018-05-25] MEDS: METHADONE (1 MG/ML 5 ML PO UD SYG) PO (08:38)
[2018-05-25] MEDS: CYCLOBENZAPRINE 10 MG TAB PO ×3 (08:40→20:28)
[2018-05-25] MEDS: SOD CHLORIDE 0.9% 1,000 ML IV ×2 (08:41→09:47)
[2018-05-25] MEDS: HYDROCODONE/APAP (5/325) TAB PO (17:59)
[2018-05-26] MEDS: SOD CHLORIDE 0.9% 1,000 ML IV ×2 (02:00→20:31)
[2018-05-26] MEDS ORDERED: HEPARIN 5,000 UNIT/0.5 ML VIAL ×3 (05:30→19:40)
[2018-05-26] MEDS: DAPTOMYCIN 500 MG in SOD CHLORIDE 0.9% 100 ML IVPB (05:34)
[2018-05-26] MEDS: PANTOPRAZOLE (EC) 40 MG TAB PO (05:34)
[2018-05-26] MEDS: HEPARIN 5,000 UNIT/1 ML VIAL SC ×3 (05:36→21:46)
[2018-05-26 06:11] LABS: ADD MAN DIFF? NO
[2018-05-26 06:14] LABS: BASOPHIL # 0.1 10^3/ul (0.0-0.1); BASOPHILS % 0.7 % (0.0-2.0); EOSINOPHILS % 13.9 % (0.0-7.0); HEMATOCRIT 29.2 % (42.0-52.0); HEMOGLOBIN 9.6 g/dl (14.0-18.0); LYMPHOCYTES # 2.8 10^3/ul (0.8-2.9); LYMPHOCYTES % 38.6 % (15.0-51.0); MEAN CORPUSCULAR HGB CONC 32.9 g/dl (32.0-37.0); MEAN CORPUSCULAR VOLUME 85.1 fl (82.0-101.0); MEAN PLATELET VOLUME 9.2 fl (7.4-10.4); MONOCYTE # 0.6 10^3/ul (0.3-0.9); MONOCYTES % 8.3 % (0.0-11.0); NEUTROPHIL # 2.8 10^3/ul (1.6-7.5); NEUTROPHILS % 37.8 % (39.0-77.0); PLATELET COUNT 195 10^3/UL (140-415); RED BLOOD COUNT 3.43 10^6/ul (4.70-6.10); RED CELL DISTRIBUTION WIDTH 17.2 % (11.5-14.5)
[2018-05-26 06:14] LABS: WHITE BLOOD COUNT 7.4 10^3/ul (4.8-10.8)
[2018-05-26 06:38] LABS: ANION GAP 1 (5-13); BLOOD UREA NITROGEN 18 mg/dl (7-20); CALCIUM 7.8 mg/dl (8.4-10.2); CARBON DIOXIDE 29 mmol/L (21-31); CHLORIDE 107 mmol/L (97-110); CREATININE 1.14 mg/dl (0.61-1.24); Estimated GFR > 60 mL/min (>60); GLUCOSE 91 mg/dl (70-220); POTASSIUM 3.5 mmol/L (3.5-5.1); SODIUM 137 mmol/L (135-144)
[2018-05-26] MEDS: ACCU-CHEK XX ×4 (07:00→20:25)
[2018-05-26] MEDS: INSULIN ASPART [NOVOLOG] 3 ML PEN SC ×4 (08:00→20:24)
[2018-05-26] MEDS: METHADONE (1 MG/ML 5 ML PO UD SYG) PO (09:50)
[2018-05-26] MEDS: CYCLOBENZAPRINE 10 MG TAB PO ×3 (09:51→20:25)
[2018-05-26] MEDS: ARTIFICIAL TEARS 15 ML OPH BOTH EYES ×4 (09:52→20:25)
[2018-05-26] MEDS: COLLAGENASE 5 GM (UD JAR) TOP (09:52)
[2018-05-26] MEDS: BALSAM PERU/CASTOR OIL 60 GM TUBE TOP (10:05)
[2018-05-26] MEDS: CEPASTAT LOZENGE MT (17:41)
[2018-05-26] MEDS: ALBUTEROL/IPRATROPIUM (NEB) 3 ML AMP HHN (21:01)
[2018-05-27] MEDS ORDERED: HEPARIN 5,000 UNIT/0.5 ML VIAL ×3 (05:02→20:48)
[2018-05-27] MEDS: PANTOPRAZOLE (EC) 40 MG TAB PO (06:01)
[2018-05-27] MEDS: HEPARIN 5,000 UNIT/1 ML VIAL SC ×3 (06:02→21:26)
[2018-05-27] MEDS: DAPTOMYCIN 500 MG in SOD CHLORIDE 0.9% 100 ML IVPB (06:02)
[2018-05-27 07:06] LABS: ADD MAN DIFF? NO
[2018-05-27 07:09] LABS: WHITE BLOOD COUNT 8.3 10^3/ul (4.8-10.8)
[2018-05-27 07:09] LABS: BASOPHILS % 0.5 % (0.0-2.0); EOSINOPHILS # 1.1 10^3/ul (0.0-0.5); EOSINOPHILS % 13.1 % (0.0-7.0); HEMATOCRIT 29.2 % (42.0-52.0); HEMOGLOBIN 9.5 g/dl (14.0-18.0); LYMPHOCYTES # 3.5 10^3/ul (0.8-2.9); LYMPHOCYTES % 42.9 % (15.0-51.0); MEAN CORPUSCULAR HEMOGLOBIN 27.5 pg (29.0-33.0); MEAN CORPUSCULAR HGB CONC 32.5 g/dl (32.0-37.0); MEAN CORPUSCULAR VOLUME 84.4 fl (82.0-101.0); MEAN PLATELET VOLUME 9.6 fl (7.4-10.4); MONOCYTE # 0.6 10^3/ul (0.3-0.9); MONOCYTES % 7.2 % (0.0-11.0); NEUTROPHILS % 35.7 % (39.0-77.0); PLATELET COUNT 221 10^3/UL (140-415); RED BLOOD COUNT 3.46 10^6/ul (4.70-6.10); RED CELL DISTRIBUTION WIDTH 16.8 % (11.5-14.5)
[2018-05-27 07:45] LABS: ANION GAP 2 (5-13); BLOOD UREA NITROGEN 19 mg/dl (7-20); CALCIUM 7.8 mg/dl (8.4-10.2); CARBON DIOXIDE 29 mmol/L (21-31); CHLORIDE 105 mmol/L (97-110); CREATININE 1.22 mg/dl (0.61-1.24); Estimated GFR > 60 mL/min (>60); GLUCOSE 98 mg/dl (70-220); POTASSIUM 3.3 mmol/L (3.5-5.1); SODIUM 136 mmol/L (135-144)
[2018-05-27] MEDS: INSULIN ASPART [NOVOLOG] 3 ML PEN SC ×4 (08:00→21:00)
[2018-05-27 08:17] LABS: ERYTHROCYTE SEDIMENTATION RATE 98 mm/Hr (0-20)
[2018-05-27] MEDS: ACCU-CHEK XX ×4 (08:39→21:00)
[2018-05-27] MEDS: COLLAGENASE 5 GM (UD JAR) TOP ×2 (09:00→23:27)
[2018-05-27] MEDS: ARTIFICIAL TEARS 15 ML OPH BOTH EYES ×4 (10:00→20:56)
[2018-05-27] MEDS: CYCLOBENZAPRINE 10 MG TAB PO ×3 (10:00→20:59)
[2018-05-27] MEDS: METHADONE (1 MG/ML 5 ML PO UD SYG) PO (10:01)
[2018-05-27] MEDS: LEVALBUTEROL (NEB) 0.63 MG/3 ML AMP HHN ×2 (12:37→18:06)
[2018-05-27] MEDS: IPRATROPIUM (NEB) 0.5 MG/2.5 ML AMP HHN (12:37)
[2018-05-27] MEDS: BALSAM PERU/CASTOR OIL 60 GM TUBE TOP (14:08)
[2018-05-27] MEDS: SOD CHLORIDE 0.9% 1,000 ML IV (14:08)
[2018-05-27] MEDS: POTASSIUM CHLORIDE 20 MEQ POWDER FOR ORAL SOLN PO (18:38)
[2018-05-27] MEDS: ALBUTEROL/IPRATROPIUM (NEB) 3 ML AMP HHN (22:40)
[2018-05-28] MEDS ORDERED: HEPARIN 5,000 UNIT/0.5 ML VIAL ×3 (05:40→20:29)
[2018-05-28] MEDS: PANTOPRAZOLE (EC) 40 MG TAB PO (06:07)
[2018-05-28] MEDS: HEPARIN 5,000 UNIT/1 ML VIAL SC ×3 (06:07→20:40)
[2018-05-28] MEDS: HYDROCODONE/APAP (5/325) TAB PO (06:08)
[2018-05-28] MEDS: ACCU-CHEK XX ×4 (07:00→20:46)
[2018-05-28] MEDS: INSULIN ASPART [NOVOLOG] 3 ML PEN SC ×4 (08:00→20:35)
[2018-05-28] MEDS: COLLAGENASE 5 GM (UD JAR) TOP (08:29)
[2018-05-28] MEDS: ARTIFICIAL TEARS 15 ML OPH BOTH EYES ×4 (08:30→20:46)
[2018-05-28] MEDS: BALSAM PERU/CASTOR OIL 60 GM TUBE TOP (08:30)
[2018-05-28] MEDS: DAPTOMYCIN 500 MG in SOD CHLORIDE 0.9% 100 ML IVPB (08:30)
[2018-05-28] MEDS: CYCLOBENZAPRINE 10 MG TAB PO ×3 (08:30→20:36)
[2018-05-28] MEDS: METHADONE (1 MG/ML 5 ML PO UD SYG) PO (08:31)
[2018-05-28] MEDS: TRIMETHOPRIM/SULFAMETHOX (DS) TAB PO (20:35)
[2018-05-29] MEDS: HYDROCODONE/APAP (5/325) TAB PO ×2 (03:23→21:17)
[2018-05-29] MEDS ORDERED: HEPARIN 5,000 UNIT/0.5 ML VIAL ×3 (05:47→21:05)
[2018-05-29] MEDS: HEPARIN 5,000 UNIT/1 ML VIAL SC ×3 (06:03→21:21)
[2018-05-29] MEDS: PANTOPRAZOLE (EC) 40 MG TAB PO (06:05)
[2018-05-29] MEDS: ACCU-CHEK XX ×4 (07:00→21:00)
[2018-05-29] MEDS: INSULIN ASPART [NOVOLOG] 3 ML PEN SC ×4 (08:00→21:00)
[2018-05-29] MEDS: LORAZEPAM 2 MG INJ IV (08:32)
[2018-05-29] MEDS: COLLAGENASE 5 GM (UD JAR) TOP (08:41)
[2018-05-29] MEDS: METHADONE (1 MG/ML 5 ML PO UD SYG) PO (08:41)
[2018-05-29] MEDS: TRIMETHOPRIM/SULFAMETHOX (DS) TAB PO (08:41)
[2018-05-29] MEDS: CYCLOBENZAPRINE 10 MG TAB PO ×3 (08:42→21:17)
[2018-05-29] MEDS: ARTIFICIAL TEARS 15 ML OPH BOTH EYES ×4 (08:48→21:30)
[2018-05-29] MEDS: BALSAM PERU/CASTOR OIL 60 GM TUBE TOP (08:48)
[2018-05-29] MEDS: CEPASTAT LOZENGE MT (21:16)
[2018-05-30] MEDS ORDERED: HEPARIN 5,000 UNIT/0.5 ML VIAL ×3 (05:31→21:14)
[2018-05-30] MEDS: PANTOPRAZOLE (EC) 40 MG TAB PO (05:35)
[2018-05-30] MEDS: HEPARIN 5,000 UNIT/1 ML VIAL SC ×3 (05:36→21:26)
[2018-05-30] MEDS: ACCU-CHEK XX ×4 (07:00→21:00)
[2018-05-30] MEDS: INSULIN ASPART [NOVOLOG] 3 ML PEN SC ×4 (08:00→21:00)
[2018-05-30] MEDS: CYCLOBENZAPRINE 10 MG TAB PO ×3 (08:12→21:24)
[2018-05-30] MEDS: TRIMETHOPRIM/SULFAMETHOX (DS) TAB PO ×3 (08:12→21:24)
[2018-05-30] MEDS: METHADONE (1 MG/ML 5 ML PO UD SYG) PO (08:13)
[2018-05-30] MEDS: ARTIFICIAL TEARS 15 ML OPH BOTH EYES ×4 (08:14→21:24)
[2018-05-30] MEDS: COLLAGENASE 5 GM (UD JAR) TOP (08:14)
[2018-05-30] MEDS: BALSAM PERU/CASTOR OIL 60 GM TUBE TOP ×2 (08:16→21:24)
[2018-05-30 08:21] LABS: BLOOD UREA NITROGEN 21 mg/dl (7-20)
[2018-05-30 08:21] LABS: CREATININE 1.33 mg/dl (0.61-1.24)
[2018-05-30] MEDS: HYDROCODONE/APAP (5/325) TAB PO (17:47)
[2018-05-31] MEDS ORDERED: HEPARIN 5,000 UNIT/0.5 ML VIAL ×3 (05:56→21:54)
[2018-05-31] MEDS: PANTOPRAZOLE (EC) 40 MG TAB PO (06:16)
[2018-05-31] MEDS: HEPARIN 5,000 UNIT/1 ML VIAL SC ×3 (06:22→22:04)
[2018-05-31] MEDS: ACCU-CHEK XX ×4 (07:00→20:33)
[2018-05-31] MEDS: INSULIN ASPART [NOVOLOG] 3 ML PEN SC ×4 (08:00→20:33)
[2018-05-31] MEDS: TRIMETHOPRIM/SULFAMETHOX (DS) TAB PO ×2 (08:20→20:11)
[2018-05-31] MEDS: CYCLOBENZAPRINE 10 MG TAB PO ×3 (08:21→20:11)
[2018-05-31] MEDS: METHADONE (1 MG/ML 5 ML PO UD SYG) PO (08:35)
[2018-05-31] MEDS: BALSAM PERU/CASTOR OIL 60 GM TUBE TOP ×2 (08:44→20:11)
[2018-05-31] MEDS: COLLAGENASE 5 GM (UD JAR) TOP (08:44)
[2018-05-31] MEDS: ARTIFICIAL TEARS 15 ML OPH BOTH EYES ×4 (08:44→20:33)
[2018-05-31] MEDS: HYDROCODONE/APAP (5/325) TAB PO ×2 (11:42→19:27)
[2018-05-31] MEDS: ALBUTEROL/IPRATROPIUM (NEB) 3 ML AMP HHN ×2 (13:07→20:18)
[2018-05-31] MEDS: SOD CHLORIDE 0.9% 500 ML IV (14:29)
[2018-05-31] MEDS: CEPASTAT LOZENGE MT (14:33)
[2018-06-01] MEDS ORDERED: HEPARIN 5,000 UNIT/0.5 ML VIAL ×3 (05:01→20:09)
[2018-06-01] MEDS: HEPARIN 5,000 UNIT/1 ML VIAL SC ×3 (05:40→21:00)
[2018-06-01] MEDS: PANTOPRAZOLE (EC) 40 MG TAB PO (05:41)
[2018-06-01] MEDS: INSULIN ASPART [NOVOLOG] 3 ML PEN SC ×5 (08:00→21:01)
[2018-06-01] MEDS: ACCU-CHEK XX ×4 (08:20→21:02)
[2018-06-01] MEDS: CYCLOBENZAPRINE 10 MG TAB PO ×3 (08:34→21:00)
[2018-06-01] MEDS: TRIMETHOPRIM/SULFAMETHOX (DS) TAB PO ×2 (08:34→21:00)
[2018-06-01] MEDS: COLLAGENASE 5 GM (UD JAR) TOP (08:34)
[2018-06-01] MEDS: BALSAM PERU/CASTOR OIL 60 GM TUBE TOP ×2 (08:35→20:59)
[2018-06-01] MEDS: METHADONE (1 MG/ML 5 ML PO UD SYG) PO (08:35)
[2018-06-01] MEDS: ARTIFICIAL TEARS 15 ML OPH BOTH EYES ×4 (08:36→20:59)
[2018-06-01] MEDS: ALBUTEROL/IPRATROPIUM (NEB) 3 ML AMP HHN (11:34)
[2018-06-01] MEDS: SOD CHLORIDE 0.9% 1,000 ML IV (13:39)
[2018-06-02] MEDS: IPRATROPIUM (NEB) 0.5 MG/2.5 ML AMP HHN ×2 (01:45→15:59)
[2018-06-02] MEDS: LEVALBUTEROL (NEB) 0.63 MG/3 ML AMP HHN ×2 (01:45→15:59)
[2018-06-02] MEDS ORDERED: HEPARIN 5,000 UNIT/0.5 ML VIAL ×3 (05:35→19:44)
[2018-06-02] MEDS: PANTOPRAZOLE (EC) 40 MG TAB PO (05:56)
[2018-06-02] MEDS: HEPARIN 5,000 UNIT/1 ML VIAL SC ×3 (05:57→21:06)
[2018-06-02] MEDS: INSULIN ASPART [NOVOLOG] 3 ML PEN SC ×4 (08:00→20:41)
[2018-06-02] MEDS: ACCU-CHEK XX ×4 (08:28→20:41)
[2018-06-02] MEDS: COLLAGENASE 5 GM (UD JAR) TOP (08:29)
[2018-06-02] MEDS: ARTIFICIAL TEARS 15 ML OPH BOTH EYES ×4 (08:29→20:39)
[2018-06-02] MEDS: TRIMETHOPRIM/SULFAMETHOX (DS) TAB PO ×2 (08:29→20:38)
[2018-06-02] MEDS: CYCLOBENZAPRINE 10 MG TAB PO ×3 (08:29→20:38)
[2018-06-02] MEDS: METHADONE (1 MG/ML 5 ML PO UD SYG) PO (08:30)
[2018-06-02] MEDS: BALSAM PERU/CASTOR OIL 60 GM TUBE TOP ×2 (08:30→20:39)
[2018-06-02] MEDS: SOD CHLORIDE 0.9% 1,000 ML IV (08:32)
[2018-06-03] MEDS: HYDROCODONE/APAP (5/325) TAB PO (02:32)
[2018-06-03] MEDS: METOPROLOL 25 MG TAB PO ×3 (03:50→20:57)
[2018-06-03] MEDS ORDERED: HEPARIN 5,000 UNIT/0.5 ML VIAL ×3 (04:58→20:47)
[2018-06-03] MEDS: SOD CHLORIDE 0.9% 1,000 ML IV (05:33)
[2018-06-03] MEDS: PANTOPRAZOLE (EC) 40 MG TAB PO (05:44)
[2018-06-03] MEDS: HEPARIN 5,000 UNIT/1 ML VIAL SC ×3 (05:45→21:01)
[2018-06-03] MEDS: ACCU-CHEK XX ×4 (07:00→21:00)
[2018-06-03] MEDS: INSULIN ASPART [NOVOLOG] 3 ML PEN SC ×4 (08:00→21:00)
[2018-06-03] MEDS: BALSAM PERU/CASTOR OIL 60 GM TUBE TOP ×2 (08:44→21:00)
[2018-06-03] MEDS: ARTIFICIAL TEARS 15 ML OPH BOTH EYES ×4 (08:44→20:56)
[2018-06-03] MEDS: CYCLOBENZAPRINE 10 MG TAB PO ×3 (08:46→20:54)
[2018-06-03] MEDS: COLLAGENASE 5 GM (UD JAR) TOP (08:46)
[2018-06-03] MEDS: TRIMETHOPRIM/SULFAMETHOX (DS) TAB PO ×2 (08:46→20:54)
[2018-06-03] MEDS: METHADONE (1 MG/ML 5 ML PO UD SYG) PO (08:49)
[2018-06-03 10:32] LABS: ADD MAN DIFF? NO
[2018-06-03 10:33] LABS: BASOPHILS % 0.6 % (0.0-2.0); EOSINOPHILS # 0.6 10^3/ul (0.0-0.5); EOSINOPHILS % 7.6 % (0.0-7.0); HEMATOCRIT 29.9 % (42.0-52.0); HEMOGLOBIN 9.8 g/dl (14.0-18.0); LYMPHOCYTES # 3.2 10^3/ul (0.8-2.9); LYMPHOCYTES % 44.1 % (15.0-51.0); MEAN CORPUSCULAR HEMOGLOBIN 27.5 pg (29.0-33.0); MEAN CORPUSCULAR HGB CONC 32.8 g/dl (32.0-37.0); MEAN PLATELET VOLUME 8.1 fl (7.4-10.4); MONOCYTE # 0.5 10^3/ul (0.3-0.9); MONOCYTES % 6.3 % (0.0-11.0); NEUTROPHILS % 40.8 % (39.0-77.0); PLATELET COUNT 274 10^3/UL (140-415); RED BLOOD COUNT 3.56 10^6/ul (4.70-6.10); RED CELL DISTRIBUTION WIDTH 16.5 % (11.5-14.5)
[2018-06-03 10:33] LABS: WHITE BLOOD COUNT 7.3 10^3/ul (4.8-10.8)
[2018-06-03 10:56] LABS: ANION GAP 3 (5-13); BLOOD UREA NITROGEN 20 mg/dl (7-20); CALCIUM 7.8 mg/dl (8.4-10.2); CARBON DIOXIDE 24 mmol/L (21-31); CHLORIDE 109 mmol/L (97-110); CREATININE 1.46 mg/dl (0.61-1.24); Estimated GFR 51 mL/min (>60); GLUCOSE 72 mg/dl (70-220); SODIUM 136 mmol/L (135-144)
[2018-06-03] MEDS: DEXTROSE 50% 50 ML SYRINGE IV ×2 (17:32→20:34)
[2018-06-03] MEDS: RISPERIDONE 0.25 MG TAB PO (20:55)
[2018-06-04] MEDS: SOD CHLORIDE 0.9% 1,000 ML IV ×2 (01:45→21:03)
[2018-06-04] MEDS ORDERED: HEPARIN 5,000 UNIT/0.5 ML VIAL ×3 (05:21→20:20)
[2018-06-04] MEDS: PANTOPRAZOLE (EC) 40 MG TAB PO (05:36)
[2018-06-04] MEDS: HEPARIN 5,000 UNIT/1 ML VIAL SC ×3 (05:37→21:00)
[2018-06-04] MEDS: INSULIN ASPART [NOVOLOG] 3 ML PEN SC ×4 (08:00→20:43)
[2018-06-04] MEDS: ACCU-CHEK XX ×4 (08:16→21:00)
[2018-06-04] MEDS: METHADONE (1 MG/ML 5 ML PO UD SYG) PO (08:18)
[2018-06-04] MEDS: COLLAGENASE 5 GM (UD JAR) TOP (08:18)
[2018-06-04] MEDS: TRIMETHOPRIM/SULFAMETHOX (DS) TAB PO ×2 (08:18→20:44)
[2018-06-04] MEDS: CYCLOBENZAPRINE 10 MG TAB PO ×3 (08:18→20:44)
[2018-06-04] MEDS: RISPERIDONE 0.25 MG TAB PO ×2 (08:19→21:58)
[2018-06-04] MEDS: METOPROLOL 25 MG TAB PO ×2 (08:24→20:46)
[2018-06-04] MEDS: BALSAM PERU/CASTOR OIL 60 GM TUBE TOP ×2 (08:28→20:47)
[2018-06-04] MEDS: ARTIFICIAL TEARS 15 ML OPH BOTH EYES ×4 (08:35→20:47)
[2018-06-04] MEDS: HYDROCODONE/APAP (5/325) TAB PO (17:21)
[2018-06-04] MEDS: ACETYLCYSTEINE 20% 4 ML VIAL NEB (22:59)
[2018-06-04] MEDS: LEVALBUTEROL (NEB) 0.63 MG/3 ML AMP HHN (22:59)
[2018-06-04] MEDS: IPRATROPIUM (NEB) 0.5 MG/2.5 ML AMP HHN (22:59)
[2018-06-05] MEDS ORDERED: HEPARIN 5,000 UNIT/0.5 ML VIAL ×3 (04:51→21:07)
[2018-06-05] MEDS: PANTOPRAZOLE (EC) 40 MG TAB PO (05:04)
[2018-06-05] MEDS: HEPARIN 5,000 UNIT/1 ML VIAL SC ×3 (05:07→21:23)
[2018-06-05] MEDS: clonAZEPAM 0.5 MG TAB PO (05:07)
[2018-06-05] MEDS: CEPASTAT LOZENGE MT ×2 (06:58→10:29)
[2018-06-05] MEDS: ACCU-CHEK XX ×4 (07:00→21:00)
[2018-06-05] MEDS: ALBUTEROL/IPRATROPIUM (NEB) 3 ML AMP HHN (07:56)
[2018-06-05] MEDS: INSULIN ASPART [NOVOLOG] 3 ML PEN SC ×4 (08:00→21:53)
[2018-06-05 08:23] LABS: ADD MAN DIFF? NO
[2018-06-05] MEDS: COLLAGENASE 5 GM (UD JAR) TOP (08:23)
[2018-06-05] MEDS: TRIMETHOPRIM/SULFAMETHOX (DS) TAB PO ×2 (08:24→21:14)
[2018-06-05] MEDS: METOPROLOL 25 MG TAB PO ×2 (08:24→21:15)
[2018-06-05] MEDS: CYCLOBENZAPRINE 10 MG TAB PO ×3 (08:24→21:14)
[2018-06-05] MEDS: METHADONE (1 MG/ML 5 ML PO UD SYG) PO (08:26)
[2018-06-05] MEDS: RISPERIDONE 0.25 MG TAB PO ×2 (08:26→21:15)
[2018-06-05] MEDS: ARTIFICIAL TEARS 15 ML OPH BOTH EYES ×4 (08:27→21:00)
[2018-06-05] MEDS: BALSAM PERU/CASTOR OIL 60 GM TUBE TOP ×2 (08:27→21:00)
[2018-06-05 08:31] LABS: BASOPHIL # 0.1 10^3/ul (0.0-0.1); BASOPHILS % 0.8 % (0.0-2.0); EOSINOPHILS # 0.5 10^3/ul (0.0-0.5); EOSINOPHILS % 6.6 % (0.0-7.0); HEMATOCRIT 28.7 % (42.0-52.0); HEMOGLOBIN 9.3 g/dl (14.0-18.0); LYMPHOCYTES # 3.2 10^3/ul (0.8-2.9); LYMPHOCYTES % 42.2 % (15.0-51.0); MEAN CORPUSCULAR HEMOGLOBIN 27.6 pg (29.0-33.0); MEAN CORPUSCULAR HGB CONC 32.4 g/dl (32.0-37.0); MEAN CORPUSCULAR VOLUME 85.2 fl (82.0-101.0); MEAN PLATELET VOLUME 8.6 fl (7.4-10.4); MONOCYTE # 0.5 10^3/ul (0.3-0.9); MONOCYTES % 5.9 % (0.0-11.0); NEUTROPHIL # 3.3 10^3/ul (1.6-7.5); PLATELET COUNT 283 10^3/UL (140-415); RED BLOOD COUNT 3.37 10^6/ul (4.70-6.10); RED CELL DISTRIBUTION WIDTH 16.7 % (11.5-14.5)
[2018-06-05 08:31] LABS: WHITE BLOOD COUNT 7.6 10^3/ul (4.8-10.8)
[2018-06-05 08:51] LABS: ANION GAP 4 (5-13); BLOOD UREA NITROGEN 24 mg/dl (7-20); CALCIUM 7.4 mg/dl (8.4-10.2); CARBON DIOXIDE 25 mmol/L (21-31); CHLORIDE 107 mmol/L (97-110); CREATININE 1.65 mg/dl (0.61-1.24); Estimated GFR 44 mL/min (>60); GLUCOSE 127 mg/dl (70-220); POTASSIUM 4.3 mmol/L (3.5-5.1); SODIUM 136 mmol/L (135-144)
[2018-06-05 08:56] LABS: PHOSPHORUS 4.3 mg/dl (2.5-4.9)
[2018-06-05 08:56] LABS: MAGNESIUM 1.8 mg/dl (1.7-2.5)
[2018-06-05] MEDS: SOD CHLORIDE 0.9% 1,000 ML IV ×2 (17:12→21:26)
[2018-06-05] MEDS: HYDROCODONE/APAP (5/325) TAB PO (21:14)
[2018-06-06] MEDS ORDERED: HEPARIN 5,000 UNIT/0.5 ML VIAL ×3 (05:48→21:49)
[2018-06-06] MEDS: PANTOPRAZOLE (EC) 40 MG TAB PO (05:57)
[2018-06-06] MEDS: HEPARIN 5,000 UNIT/1 ML VIAL SC ×3 (06:03→22:19)
[2018-06-06 06:21] LABS: ADD MAN DIFF? NO
[2018-06-06 06:28] LABS: WHITE BLOOD COUNT 8.3 10^3/ul (4.8-10.8)
[2018-06-06 06:28] LABS: BASOPHIL # 0.1 10^3/ul (0.0-0.1); BASOPHILS % 0.7 % (0.0-2.0); EOSINOPHILS # 0.5 10^3/ul (0.0-0.5); EOSINOPHILS % 5.4 % (0.0-7.0); HEMATOCRIT 26.9 % (42.0-52.0); LYMPHOCYTES # 3.4 10^3/ul (0.8-2.9); LYMPHOCYTES % 40.6 % (15.0-51.0); MEAN CORPUSCULAR HGB CONC 33.5 g/dl (32.0-37.0); MEAN CORPUSCULAR VOLUME 83.8 fl (82.0-101.0); MEAN PLATELET VOLUME 8.5 fl (7.4-10.4); MONOCYTE # 0.6 10^3/ul (0.3-0.9); MONOCYTES % 6.9 % (0.0-11.0); NEUTROPHIL # 3.8 10^3/ul (1.6-7.5); NEUTROPHILS % 45.8 % (39.0-77.0); PLATELET COUNT 271 10^3/UL (140-415); RED BLOOD COUNT 3.21 10^6/ul (4.70-6.10); RED CELL DISTRIBUTION WIDTH 16.6 % (11.5-14.5)
[2018-06-06 07:00] LABS: ANION GAP 4 (5-13); BLOOD UREA NITROGEN 28 mg/dl (7-20); CALCIUM 7.5 mg/dl (8.4-10.2); CARBON DIOXIDE 23 mmol/L (21-31); CHLORIDE 108 mmol/L (97-110); CREATININE 1.44 mg/dl (0.61-1.24); Estimated GFR 51 mL/min (>60); GLUCOSE 93 mg/dl (70-220); POTASSIUM 4.4 mmol/L (3.5-5.1); SODIUM 135 mmol/L (135-144)
[2018-06-06] MEDS: ACCU-CHEK XX ×4 (07:00→21:00)
[2018-06-06] MEDS: INSULIN ASPART [NOVOLOG] 3 ML PEN SC ×4 (08:00→21:00)
[2018-06-06] MEDS: RISPERIDONE 0.25 MG TAB PO ×2 (09:00→22:10)
[2018-06-06] MEDS: METHADONE (1 MG/ML 5 ML PO UD SYG) PO ×2 (09:00→12:51)
[2018-06-06] MEDS: CYCLOBENZAPRINE 10 MG TAB PO ×3 (09:00→22:10)
[2018-06-06] MEDS: METOPROLOL 25 MG TAB PO ×2 (09:00→21:00)
[2018-06-06] MEDS: DOXYCYCLINE 100 MG TAB PO ×2 (09:12→22:09)
[2018-06-06] MEDS: BALSAM PERU/CASTOR OIL 60 GM TUBE TOP ×2 (09:14→22:12)
[2018-06-06] MEDS: COLLAGENASE 5 GM (UD JAR) TOP (09:14)
[2018-06-06] MEDS: ARTIFICIAL TEARS 15 ML OPH BOTH EYES ×4 (09:14→22:12)
[2018-06-06] MEDS: SOD CHLORIDE 0.9% 250 ML IV (10:48)
[2018-06-06] MEDS: SOD CHLORIDE 0.9% 1,000 ML IV (18:03)
[2018-06-07] MEDS ORDERED: HEPARIN 5,000 UNIT/0.5 ML VIAL ×3 (05:35→20:37)
[2018-06-07] MEDS: PANTOPRAZOLE (EC) 40 MG TAB PO (05:38)
[2018-06-07] MEDS: HEPARIN 5,000 UNIT/1 ML VIAL SC ×3 (05:42→21:36)
[2018-06-07] MEDS: ACCU-CHEK XX ×4 (07:00→20:39)
[2018-06-07 07:45] LABS: ADD MAN DIFF? NO
[2018-06-07 07:57] LABS: WHITE BLOOD COUNT 7.5 10^3/ul (4.8-10.8)
[2018-06-07 07:58] LABS: BASOPHIL # 0.1 10^3/ul (0.0-0.1); BASOPHILS % 0.7 % (0.0-2.0); EOSINOPHILS # 0.5 10^3/ul (0.0-0.5); EOSINOPHILS % 6.1 % (0.0-7.0); HEMATOCRIT 28.1 % (42.0-52.0); HEMOGLOBIN 9.2 g/dl (14.0-18.0); LYMPHOCYTES # 2.7 10^3/ul (0.8-2.9); LYMPHOCYTES % 36.2 % (15.0-51.0); MEAN CORPUSCULAR HEMOGLOBIN 27.9 pg (29.0-33.0); MEAN CORPUSCULAR HGB CONC 32.7 g/dl (32.0-37.0); MEAN CORPUSCULAR VOLUME 85.2 fl (82.0-101.0); MEAN PLATELET VOLUME 8.6 fl (7.4-10.4); MONOCYTE # 0.5 10^3/ul (0.3-0.9); NEUTROPHIL # 3.8 10^3/ul (1.6-7.5); NEUTROPHILS % 50.3 % (39.0-77.0); NUCLEATED RED BLOOD CELLS% 0.3 /100WBC (0.0-0.0); PLATELET COUNT 266 10^3/UL (140-415); RED CELL DISTRIBUTION WIDTH 16.5 % (11.5-14.5)
[2018-06-07] MEDS: INSULIN ASPART [NOVOLOG] 3 ML PEN SC ×4 (08:00→20:17)
[2018-06-07 08:14] LABS: ANION GAP 2 (5-13); BLOOD UREA NITROGEN 25 mg/dl (7-20); CALCIUM 7.9 mg/dl (8.4-10.2); CARBON DIOXIDE 22 mmol/L (21-31); CHLORIDE 111 mmol/L (97-110); Estimated GFR 58 mL/min (>60); GLUCOSE 97 mg/dl (70-220); SODIUM 135 mmol/L (135-144)
[2018-06-07] MEDS: METHADONE (1 MG/ML 5 ML PO UD SYG) PO (08:25)
[2018-06-07] MEDS: DOXYCYCLINE 100 MG TAB PO ×2 (08:25→20:14)
[2018-06-07] MEDS: CYCLOBENZAPRINE 10 MG TAB PO ×2 (08:26→20:18)
[2018-06-07] MEDS: METOPROLOL 25 MG TAB PO ×2 (08:26→20:18)
[2018-06-07] MEDS: RISPERIDONE 0.25 MG TAB PO ×2 (08:26→20:18)
[2018-06-07] MEDS: BALSAM PERU/CASTOR OIL 60 GM TUBE TOP ×2 (08:27→20:19)
[2018-06-07] MEDS: COLLAGENASE 5 GM (UD JAR) TOP (08:27)
[2018-06-07] MEDS: ARTIFICIAL TEARS 15 ML OPH BOTH EYES ×4 (08:27→20:20)
[2018-06-07] MEDS: SOD CHLORIDE 0.9% 1,000 ML IV ×2 (08:36→13:09)
[2018-06-07] MEDS: HYDROCODONE/APAP (5/325) TAB PO (11:08)
[2018-06-07] MEDS: ALBUTEROL/IPRATROPIUM (NEB) 3 ML AMP HHN (17:46)
[2018-06-08] MEDS: ALBUTEROL/IPRATROPIUM (NEB) 3 ML AMP HHN ×2 (02:12→20:12)
[2018-06-08] MEDS ORDERED: HEPARIN 5,000 UNIT/0.5 ML VIAL ×3 (04:54→21:25)
[2018-06-08] MEDS: PANTOPRAZOLE (EC) 40 MG TAB PO (05:02)
[2018-06-08] MEDS: HYDROCODONE/APAP (5/325) TAB PO ×2 (05:02→21:33)
[2018-06-08] MEDS: HEPARIN 5,000 UNIT/1 ML VIAL SC ×3 (05:07→21:37)
[2018-06-08] MEDS: SOD CHLORIDE 0.9% 1,000 ML IV ×2 (05:30→09:13)
[2018-06-08] MEDS: ACCU-CHEK XX ×4 (07:00→21:00)
[2018-06-08 07:38] LABS: ADD MAN DIFF? NO
[2018-06-08 07:39] LABS: WHITE BLOOD COUNT 5.5 10^3/ul (4.8-10.8)
[2018-06-08 07:39] LABS: BASOPHILS % 0.5 % (0.0-2.0); EOSINOPHILS # 0.3 10^3/ul (0.0-0.5); EOSINOPHILS % 5.6 % (0.0-7.0); HEMATOCRIT 33.8 % (42.0-52.0); HEMOGLOBIN 10.9 g/dl (14.0-18.0); LYMPHOCYTES # 2.4 10^3/ul (0.8-2.9); LYMPHOCYTES % 43.5 % (15.0-51.0); MEAN CORPUSCULAR HEMOGLOBIN 27.4 pg (29.0-33.0); MEAN CORPUSCULAR HGB CONC 32.2 g/dl (32.0-37.0); MEAN CORPUSCULAR VOLUME 84.9 fl (82.0-101.0); MEAN PLATELET VOLUME 8.3 fl (7.4-10.4); MONOCYTE # 0.3 10^3/ul (0.3-0.9); MONOCYTES % 5.6 % (0.0-11.0); NEUTROPHIL # 2.4 10^3/ul (1.6-7.5); NEUTROPHILS % 44.4 % (39.0-77.0); PLATELET COUNT 228 10^3/UL (140-415); RED BLOOD COUNT 3.98 10^6/ul (4.70-6.10); RED CELL DISTRIBUTION WIDTH 16.4 % (11.5-14.5)
[2018-06-08] MEDS: INSULIN ASPART [NOVOLOG] 3 ML PEN SC ×4 (08:00→21:00)
[2018-06-08 08:28] LABS: ANION GAP 0 (5-13); BLOOD UREA NITROGEN 23 mg/dl (7-20); CALCIUM 7.8 mg/dl (8.4-10.2); CARBON DIOXIDE 23 mmol/L (21-31); CHLORIDE 111 mmol/L (97-110); CREATININE 1.23 mg/dl (0.61-1.24); Estimated GFR > 60 mL/min (>60); GLUCOSE 85 mg/dl (70-220); POTASSIUM 3.9 mmol/L (3.5-5.1); SODIUM 134 mmol/L (135-144)
[2018-06-08] MEDS: BALSAM PERU/CASTOR OIL 60 GM TUBE TOP ×2 (09:05→21:49)
[2018-06-08] MEDS: COLLAGENASE 5 GM (UD JAR) TOP (09:06)
[2018-06-08] MEDS: ARTIFICIAL TEARS 15 ML OPH BOTH EYES ×4 (09:06→21:33)
[2018-06-08] MEDS: METHADONE (1 MG/ML 5 ML PO UD SYG) PO (09:08)
[2018-06-08] MEDS: CYCLOBENZAPRINE 10 MG TAB PO ×2 (09:08→21:34)
[2018-06-08] MEDS: DOXYCYCLINE 100 MG TAB PO ×2 (09:08→21:34)
[2018-06-08] MEDS: RISPERIDONE 0.25 MG TAB PO ×2 (09:08→21:34)
[2018-06-08] MEDS: METOPROLOL 25 MG TAB PO ×2 (09:41→21:00)
[2018-06-08] MEDS: clonAZEPAM 0.5 MG TAB PO (23:11)
[2018-06-09] MEDS: SOD CHLORIDE 0.9% 1,000 ML IV ×3 (01:30→22:16)
[2018-06-09] MEDS ORDERED: HEPARIN 5,000 UNIT/0.5 ML VIAL ×3 (05:55→22:11)
[2018-06-09] MEDS: PANTOPRAZOLE (EC) 40 MG TAB PO (06:13)
[2018-06-09] MEDS: HEPARIN 5,000 UNIT/1 ML VIAL SC ×3 (06:39→22:14)
[2018-06-09] MEDS: ACCU-CHEK XX ×4 (07:00→21:00)
[2018-06-09 08:20] LABS: ADD MAN DIFF? NO
[2018-06-09 08:24] LABS: WHITE BLOOD COUNT 9.8 10^3/ul (4.8-10.8)
[2018-06-09 08:24] LABS: BASOPHIL # 0.1 10^3/ul (0.0-0.1); BASOPHILS % 0.5 % (0.0-2.0); EOSINOPHILS # 0.4 10^3/ul (0.0-0.5); EOSINOPHILS % 3.9 % (0.0-7.0); HEMATOCRIT 29.1 % (42.0-52.0); HEMOGLOBIN 9.5 g/dl (14.0-18.0); LYMPHOCYTES # 2.4 10^3/ul (0.8-2.9); LYMPHOCYTES % 24.4 % (15.0-51.0); MEAN CORPUSCULAR HEMOGLOBIN 27.7 pg (29.0-33.0); MEAN CORPUSCULAR HGB CONC 32.6 g/dl (32.0-37.0); MEAN CORPUSCULAR VOLUME 84.8 fl (82.0-101.0); MEAN PLATELET VOLUME 8.4 fl (7.4-10.4); MONOCYTE # 0.6 10^3/ul (0.3-0.9); MONOCYTES % 6.1 % (0.0-11.0); NEUTROPHIL # 6.3 10^3/ul (1.6-7.5); NEUTROPHILS % 64.6 % (39.0-77.0); PLATELET COUNT 277 10^3/UL (140-415); RED BLOOD COUNT 3.43 10^6/ul (4.70-6.10); RED CELL DISTRIBUTION WIDTH 16.5 % (11.5-14.5)
[2018-06-09 08:44] LABS: ANION GAP 3 (5-13); BLOOD UREA NITROGEN 26 mg/dl (7-20); CALCIUM 7.9 mg/dl (8.4-10.2); CARBON DIOXIDE 22 mmol/L (21-31); CHLORIDE 111 mmol/L (97-110); CREATININE 1.42 mg/dl (0.61-1.24); Estimated GFR 52 mL/min (>60); GLUCOSE 139 mg/dl (70-220); POTASSIUM 3.9 mmol/L (3.5-5.1); SODIUM 136 mmol/L (135-144)
[2018-06-09] MEDS: ARTIFICIAL TEARS 15 ML OPH BOTH EYES ×4 (09:00→20:39)
[2018-06-09] MEDS: INSULIN ASPART [NOVOLOG] 3 ML PEN SC ×4 (09:36→20:29)
[2018-06-09] MEDS: CYCLOBENZAPRINE 10 MG TAB PO ×2 (09:39→20:29)
[2018-06-09] MEDS: METOPROLOL 25 MG TAB PO ×2 (09:40→20:39)
[2018-06-09] MEDS: METHADONE (1 MG/ML 5 ML PO UD SYG) PO (09:41)
[2018-06-09] MEDS: RISPERIDONE 0.25 MG TAB PO ×2 (09:41→20:30)
[2018-06-09] MEDS: DOXYCYCLINE 100 MG TAB PO ×2 (09:42→20:30)
[2018-06-09] MEDS: BALSAM PERU/CASTOR OIL 60 GM TUBE TOP ×2 (09:46→21:00)
[2018-06-09] MEDS: COLLAGENASE 5 GM (UD JAR) TOP (10:04)
[2018-06-10] MEDS: ALBUTEROL/IPRATROPIUM (NEB) 3 ML AMP HHN ×2 (02:43→09:03)
[2018-06-10] MEDS ORDERED: HEPARIN 5,000 UNIT/0.5 ML VIAL ×3 (05:38→22:56)
[2018-06-10] MEDS: PANTOPRAZOLE (EC) 40 MG TAB PO (05:41)
[2018-06-10] MEDS: HEPARIN 5,000 UNIT/1 ML VIAL SC ×3 (05:46→22:00)
[2018-06-10] MEDS: ACCU-CHEK XX ×4 (07:00→20:49)
[2018-06-10] MEDS: INSULIN ASPART [NOVOLOG] 3 ML PEN SC ×4 (08:00→20:45)
[2018-06-10] MEDS: CYCLOBENZAPRINE 10 MG TAB PO ×2 (08:56→20:42)
[2018-06-10] MEDS: METOPROLOL 25 MG TAB PO ×2 (08:57→20:44)
[2018-06-10] MEDS: COLLAGENASE 5 GM (UD JAR) TOP (08:58)
[2018-06-10] MEDS: DOXYCYCLINE 100 MG TAB PO ×2 (08:58→20:42)
[2018-06-10] MEDS: RISPERIDONE 0.25 MG TAB PO ×2 (08:58→20:42)
[2018-06-10] MEDS: BALSAM PERU/CASTOR OIL 60 GM TUBE TOP ×2 (08:59→20:48)
[2018-06-10] MEDS: ARTIFICIAL TEARS 15 ML OPH BOTH EYES ×4 (09:00→20:48)
[2018-06-10 09:08] LABS: ADD MAN DIFF? NO
[2018-06-10 09:13] LABS: WHITE BLOOD COUNT 8.1 10^3/ul (4.8-10.8)
[2018-06-10 09:14] LABS: BASOPHILS % 0.5 % (0.0-2.0); EOSINOPHILS # 0.4 10^3/ul (0.0-0.5); EOSINOPHILS % 5.3 % (0.0-7.0); HEMATOCRIT 30.3 % (42.0-52.0); LYMPHOCYTES # 2.8 10^3/ul (0.8-2.9); LYMPHOCYTES % 34.4 % (15.0-51.0); MEAN CORPUSCULAR HEMOGLOBIN 27.9 pg (29.0-33.0); MEAN CORPUSCULAR VOLUME 84.4 fl (82.0-101.0); MEAN PLATELET VOLUME 8.7 fl (7.4-10.4); MONOCYTE # 0.5 10^3/ul (0.3-0.9); NEUTROPHIL # 4.3 10^3/ul (1.6-7.5); NEUTROPHILS % 53.2 % (39.0-77.0); PLATELET COUNT 290 10^3/UL (140-415); RED BLOOD COUNT 3.59 10^6/ul (4.70-6.10); RED CELL DISTRIBUTION WIDTH 16.4 % (11.5-14.5)
[2018-06-10 09:51] LABS: ANION GAP 5 (5-13); BLOOD UREA NITROGEN 27 mg/dl (7-20); CALCIUM 8.2 mg/dl (8.4-10.2); CARBON DIOXIDE 24 mmol/L (21-31); CHLORIDE 107 mmol/L (97-110); CREATININE 1.23 mg/dl (0.61-1.24); Estimated GFR > 60 mL/min (>60); GLUCOSE 111 mg/dl (70-220); POTASSIUM 3.9 mmol/L (3.5-5.1); SODIUM 136 mmol/L (135-144)
[2018-06-10] MEDS: METHADONE (1 MG/ML 5 ML PO UD SYG) PO (09:54)
[2018-06-10] MEDS: SOD CHLORIDE 0.9% 1,000 ML IV (18:36)
[2018-06-10] MEDS: clonAZEPAM 0.5 MG TAB PO (20:42)
[2018-06-11] MEDS ORDERED: HEPARIN 5,000 UNIT/0.5 ML VIAL ×2 (05:28→13:53)
[2018-06-11] MEDS: PANTOPRAZOLE (EC) 40 MG TAB PO (05:33)
[2018-06-11] MEDS: HYDROCODONE/APAP (5/325) TAB PO ×2 (05:33→17:36)
[2018-06-11] MEDS: HEPARIN 5,000 UNIT/1 ML VIAL SC ×3 (05:39→21:51)
[2018-06-11] MEDS: ALBUTEROL/IPRATROPIUM (NEB) 3 ML AMP HHN ×2 (05:40→20:39)
[2018-06-11] MEDS: CEPASTAT LOZENGE MT ×3 (06:59→11:20)
[2018-06-11] MEDS: ACCU-CHEK XX ×4 (07:00→20:38)
[2018-06-11] MEDS: CYCLOBENZAPRINE 10 MG TAB PO ×2 (08:36→20:22)
[2018-06-11] MEDS: DOXYCYCLINE 100 MG TAB PO ×2 (08:36→20:21)
[2018-06-11] MEDS: RISPERIDONE 0.25 MG TAB PO ×2 (08:36→20:22)
[2018-06-11] MEDS: COLLAGENASE 5 GM (UD JAR) TOP (08:36)
[2018-06-11] MEDS: METHADONE (1 MG/ML 5 ML PO UD SYG) PO (08:37)
[2018-06-11] MEDS: METOPROLOL 25 MG TAB PO ×2 (08:39→20:28)
[2018-06-11] MEDS: BALSAM PERU/CASTOR OIL 60 GM TUBE TOP ×2 (08:45→20:23)
[2018-06-11] MEDS: INSULIN ASPART [NOVOLOG] 3 ML PEN SC ×4 (08:45→20:22)
[2018-06-11] MEDS: ARTIFICIAL TEARS 15 ML OPH BOTH EYES ×4 (08:46→20:23)
[2018-06-11 12:28] LABS: ANION GAP 5 (5-13); BLOOD UREA NITROGEN 28 mg/dl (7-20); CARBON DIOXIDE 21 mmol/L (21-31); CHLORIDE 110 mmol/L (97-110); Estimated GFR 53 mL/min (>60); GLUCOSE 187 mg/dl (70-220); MAGNESIUM 1.1 mg/dl (1.7-2.5); POTASSIUM 3.9 mmol/L (3.5-5.1); SODIUM 136 mmol/L (135-144)
[2018-06-11] MEDS: SOD CHLORIDE 0.9% 1,000 ML IV (14:05)
[2018-06-11] MEDS: MAGNESIUM SULFATE 4 GM/100 ML 100 ML IVPB (15:13)
[2018-06-12] MEDS ORDERED: HEPARIN 5,000 UNIT/0.5 ML VIAL ×4 (03:10→22:07)
[2018-06-12] MEDS: PANTOPRAZOLE (EC) 40 MG TAB PO (05:53)
[2018-06-12] MEDS: HEPARIN 5,000 UNIT/1 ML VIAL SC ×3 (05:57→22:29)
[2018-06-12] MEDS: ACCU-CHEK XX ×4 (07:00→20:49)
[2018-06-12] MEDS: HYDROCODONE/APAP (5/325) TAB PO ×2 (07:54→15:52)
[2018-06-12 08:22] LABS: ADD MAN DIFF? NO
[2018-06-12 08:27] LABS: BASOPHIL # 0.1 10^3/ul (0.0-0.1); BASOPHILS % 0.4 % (0.0-2.0); EOSINOPHILS # 0.4 10^3/ul (0.0-0.5); EOSINOPHILS % 3.4 % (0.0-7.0); HEMATOCRIT 31.8 % (42.0-52.0); HEMOGLOBIN 10.3 g/dl (14.0-18.0); LYMPHOCYTES # 3.7 10^3/ul (0.8-2.9); LYMPHOCYTES % 29.2 % (15.0-51.0); MEAN CORPUSCULAR HEMOGLOBIN 27.7 pg (29.0-33.0); MEAN CORPUSCULAR HGB CONC 32.4 g/dl (32.0-37.0); MEAN CORPUSCULAR VOLUME 85.5 fl (82.0-101.0); MONOCYTE # 0.8 10^3/ul (0.3-0.9); MONOCYTES % 6.2 % (0.0-11.0); NEUTROPHIL # 7.6 10^3/ul (1.6-7.5); NEUTROPHILS % 60.3 % (39.0-77.0); PLATELET COUNT 293 10^3/UL (140-415); RED BLOOD COUNT 3.72 10^6/ul (4.70-6.10); RED CELL DISTRIBUTION WIDTH 16.7 % (11.5-14.5)
[2018-06-12 08:27] LABS: WHITE BLOOD COUNT 12.7 10^3/ul (4.8-10.8)
[2018-06-12] MEDS: DOXYCYCLINE 100 MG TAB PO ×2 (08:31→20:37)
[2018-06-12] MEDS: RISPERIDONE 0.25 MG TAB PO ×2 (08:31→20:38)
[2018-06-12] MEDS: COLLAGENASE 5 GM (UD JAR) TOP (08:31)
[2018-06-12] MEDS: BALSAM PERU/CASTOR OIL 60 GM TUBE TOP ×2 (08:31→20:49)
[2018-06-12] MEDS: CYCLOBENZAPRINE 10 MG TAB PO ×2 (08:31→20:38)
[2018-06-12] MEDS: ARTIFICIAL TEARS 15 ML OPH BOTH EYES ×4 (08:32→20:48)
[2018-06-12] MEDS: METOPROLOL 25 MG TAB PO ×2 (08:32→20:37)
[2018-06-12] MEDS: INSULIN ASPART [NOVOLOG] 3 ML PEN SC ×4 (08:35→20:48)
[2018-06-12 08:49] LABS: ALANINE AMINOTRANSFERASE 22 IU/L (13-69); ALBUMIN 1.6 g/dl (3.3-4.9); ALBUMIN/GLOBULIN RATIO 0.64; ALKALINE PHOSPHATASE 172 IU/L (42-121); ANION GAP 2 (5-13); ASPARTATE AMINO TRANSFERASE 16 IU/L (15-46); BLOOD UREA NITROGEN 38 mg/dl (7-20); CALCIUM 7.8 mg/dl (8.4-10.2); CARBON DIOXIDE 23 mmol/L (21-31); CHLORIDE 108 mmol/L (97-110); CREATININE 1.44 mg/dl (0.61-1.24); Estimated GFR 51 mL/min (>60); GLUCOSE 163 mg/dl (70-220); MAGNESIUM 2.2 mg/dl (1.7-2.5); POTASSIUM 4.7 mmol/L (3.5-5.1); SODIUM 133 mmol/L (135-144); TOTAL PROTEIN 4.1 g/dl (6.1-8.1)
[2018-06-12 08:51] LABS: PHOSPHORUS 4.7 mg/dl (2.5-4.9)
[2018-06-12] MEDS: SOD CHLORIDE 0.9% 1,000 ML IV ×2 (09:30→13:18)
[2018-06-12] MEDS: METHADONE (1 MG/ML 5 ML PO UD SYG) PO (09:39)
[2018-06-12] MEDS: clonAZEPAM 0.5 MG TAB PO (20:38)
[2018-06-12 22:21] LABS: ADD UMIC YES; UR ASCORBIC ACID NEGATIVE (NEGATIVE); UR BACTERIA FEW /HPF (NONE SEEN); UR BILIRUBIN (Dip) NEGATIVE (NEGATIVE); UR BLOOD (Dip) 1+ mg/dL (NEGATIVE); UR CLARITY CLOUDY (CLEAR); UR COLOR YELLOW (YELLOW); UR GLUCOSE (Dip) 3+ mg/dL (NEGATIVE); UR KETONES (Dip) NEGATIVE (NEGATIVE); UR LEUKOCYTE ESTERASE (Dip) 3+ Leu/ul (NEGATIVE); UR NITRITE (Dip) POSITIVE (NEGATIVE); UR RBC 3 /HPF (0-5); UR SPECIFIC GRAVITY (Dip) 1.008 (1.003-1.030); UR TOTAL PROTEIN (Dip) 3+ mg/dl (NEGATIVE); UR UROBILINOGEN (Dip) NEGATIVE (NEGATIVE); UR WBC 168 /HPF (0-5)
[2018-06-13] MEDS ORDERED: HEPARIN 5,000 UNIT/0.5 ML VIAL ×3 (05:00→21:01)
[2018-06-13] MEDS: PANTOPRAZOLE (EC) 40 MG TAB PO (05:13)
[2018-06-13] MEDS: HYDROCODONE/APAP (5/325) TAB PO ×2 (05:13→13:19)
[2018-06-13] MEDS: HEPARIN 5,000 UNIT/1 ML VIAL SC ×3 (05:32→21:13)
[2018-06-13] MEDS: INSULIN ASPART [NOVOLOG] 3 ML PEN SC ×4 (08:00→21:00)
[2018-06-13] MEDS: COLLAGENASE 5 GM (UD JAR) TOP (08:26)
[2018-06-13] MEDS: ACCU-CHEK XX ×4 (08:27→21:24)
[2018-06-13] MEDS: ARTIFICIAL TEARS 15 ML OPH BOTH EYES ×4 (08:27→21:17)
[2018-06-13] MEDS: BALSAM PERU/CASTOR OIL 60 GM TUBE TOP ×2 (08:27→21:24)
[2018-06-13] MEDS: RISPERIDONE 0.25 MG TAB PO ×2 (08:28→21:08)
[2018-06-13] MEDS: DOXYCYCLINE 100 MG TAB PO ×2 (08:28→21:08)
[2018-06-13] MEDS: CYCLOBENZAPRINE 10 MG TAB PO ×2 (08:28→21:09)
[2018-06-13] MEDS: METOPROLOL 25 MG TAB PO ×2 (08:29→21:08)
[2018-06-13] MEDS: METHADONE (1 MG/ML 5 ML PO UD SYG) PO (08:30)
[2018-06-13 09:18] LABS: ADD MAN DIFF? NO
[2018-06-13 09:19] LABS: BASOPHILS % 0.3 % (0.0-2.0); EOSINOPHILS # 0.4 10^3/ul (0.0-0.5); EOSINOPHILS % 4.4 % (0.0-7.0); HEMATOCRIT 30.7 % (42.0-52.0); HEMOGLOBIN 9.9 g/dl (14.0-18.0); LYMPHOCYTES # 3.5 10^3/ul (0.8-2.9); LYMPHOCYTES % 38.6 % (15.0-51.0); MEAN CORPUSCULAR HEMOGLOBIN 27.6 pg (29.0-33.0); MEAN CORPUSCULAR HGB CONC 32.2 g/dl (32.0-37.0); MEAN CORPUSCULAR VOLUME 85.5 fl (82.0-101.0); MEAN PLATELET VOLUME 8.5 fl (7.4-10.4); MONOCYTE # 0.6 10^3/ul (0.3-0.9); MONOCYTES % 6.7 % (0.0-11.0); NEUTROPHIL # 4.4 10^3/ul (1.6-7.5); NEUTROPHILS % 49.2 % (39.0-77.0); PLATELET COUNT 257 10^3/UL (140-415); RED BLOOD COUNT 3.59 10^6/ul (4.70-6.10); RED CELL DISTRIBUTION WIDTH 16.5 % (11.5-14.5)
[2018-06-13 09:19] LABS: WHITE BLOOD COUNT 8.9 10^3/ul (4.8-10.8)
[2018-06-13 09:44] LABS: ANION GAP -1 (5-13); BLOOD UREA NITROGEN 35 mg/dl (7-20); CALCIUM 8.2 mg/dl (8.4-10.2); CARBON DIOXIDE 24 mmol/L (21-31); CHLORIDE 111 mmol/L (97-110); CREATININE 1.53 mg/dl (0.61-1.24); Estimated GFR 48 mL/min (>60); GLUCOSE 143 mg/dl (70-220); POTASSIUM 4.1 mmol/L (3.5-5.1); SODIUM 134 mmol/L (135-144)
[2018-06-13] MEDS: SOD CHLORIDE 0.9% 1,000 ML IV (10:52)
[2018-06-13] MEDS: DEXTROSE 5%-0.9% NACL 1,000 ML IV (16:14)
[2018-06-13] MEDS: clonAZEPAM 0.5 MG TAB PO (17:48)
[2018-06-13] MEDS: MIDODRINE 5 MG TAB PO (17:49)
[2018-06-14] MEDS ORDERED: HEPARIN 5,000 UNIT/0.5 ML VIAL ×3 (05:24→20:07)
[2018-06-14] MEDS: PANTOPRAZOLE (EC) 40 MG TAB PO (05:29)
[2018-06-14] MEDS: DEXTROSE 5%-0.9% NACL 1,000 ML IV ×2 (05:29→17:10)
[2018-06-14] MEDS: HEPARIN 5,000 UNIT/1 ML VIAL SC ×3 (05:31→21:24)
[2018-06-14] MEDS: HYDROCODONE/APAP (5/325) TAB PO ×2 (05:40→21:39)
[2018-06-14] MEDS: ACCU-CHEK XX ×4 (07:00→21:00)
[2018-06-14] MEDS: METHADONE (1 MG/ML 5 ML PO UD SYG) PO (08:14)
[2018-06-14] MEDS: RISPERIDONE 0.25 MG TAB PO ×2 (08:14→21:23)
[2018-06-14] MEDS: DOXYCYCLINE 100 MG TAB PO ×2 (08:14→21:23)
[2018-06-14] MEDS: INSULIN ASPART [NOVOLOG] 3 ML PEN SC ×4 (08:15→21:00)
[2018-06-14] MEDS: CYCLOBENZAPRINE 10 MG TAB PO ×2 (08:19→21:22)
[2018-06-14] MEDS: METOPROLOL 25 MG TAB PO ×2 (08:20→21:00)
[2018-06-14] MEDS: COLLAGENASE 5 GM (UD JAR) TOP (08:24)
[2018-06-14] MEDS: BALSAM PERU/CASTOR OIL 60 GM TUBE TOP ×2 (08:24→21:26)
[2018-06-14] MEDS: ARTIFICIAL TEARS 15 ML OPH BOTH EYES ×4 (08:25→21:26)
[2018-06-14] MEDS: clonAZEPAM 0.5 MG TAB PO (23:48)
[2018-06-15] MEDS: LEVALBUTEROL (NEB) 0.63 MG/3 ML AMP HHN (00:55)
[2018-06-15] MEDS ORDERED: HEPARIN 5,000 UNIT/0.5 ML VIAL ×3 (05:42→21:18)
[2018-06-15] MEDS: PANTOPRAZOLE (EC) 40 MG TAB PO (05:45)
[2018-06-15] MEDS: HEPARIN 5,000 UNIT/1 ML VIAL SC ×3 (05:45→21:54)
[2018-06-15] MEDS: DEXTROSE 5%-0.9% NACL 1,000 ML IV ×3 (06:36→20:23)
[2018-06-15] MEDS: ACCU-CHEK XX ×4 (07:00→21:00)
[2018-06-15] MEDS: DOXYCYCLINE 100 MG TAB PO ×2 (08:27→21:52)
[2018-06-15] MEDS: METHADONE (1 MG/ML 5 ML PO UD SYG) PO (08:27)
[2018-06-15] MEDS: RISPERIDONE 0.25 MG TAB PO ×2 (08:27→21:52)
[2018-06-15] MEDS: METOPROLOL 25 MG TAB PO ×2 (08:28→21:00)
[2018-06-15] MEDS: ARTIFICIAL TEARS 15 ML OPH BOTH EYES ×4 (08:30→21:53)
[2018-06-15] MEDS: BALSAM PERU/CASTOR OIL 60 GM TUBE TOP ×2 (08:31→21:53)
[2018-06-15] MEDS: COLLAGENASE 5 GM (UD JAR) TOP (08:31)
[2018-06-15] MEDS: CYCLOBENZAPRINE 10 MG TAB PO ×2 (08:32→21:52)
[2018-06-15] MEDS: INSULIN ASPART [NOVOLOG] 3 ML PEN SC ×4 (08:39→21:55)
[2018-06-15] MEDS: CEFTRIAXONE 1 GM/50 ML (PMX) 50 ML IVPB (18:31)
[2018-06-15 20:39] LABS: ADD MAN DIFF? NO
[2018-06-15 20:40] LABS: WHITE BLOOD COUNT 7.9 10^3/ul (4.8-10.8)
[2018-06-15 20:40] LABS: BASOPHILS % 0.5 % (0.0-2.0); EOSINOPHILS # 0.6 10^3/ul (0.0-0.5); EOSINOPHILS % 7.3 % (0.0-7.0); HEMATOCRIT 25.5 % (42.0-52.0); HEMOGLOBIN 8.3 g/dl (14.0-18.0); LYMPHOCYTES # 2.7 10^3/ul (0.8-2.9); LYMPHOCYTES % 33.5 % (15.0-51.0); MEAN CORPUSCULAR HGB CONC 32.5 g/dl (32.0-37.0); MEAN CORPUSCULAR VOLUME 86.1 fl (82.0-101.0); MEAN PLATELET VOLUME 8.5 fl (7.4-10.4); MONOCYTE # 0.7 10^3/ul (0.3-0.9); MONOCYTES % 8.6 % (0.0-11.0); NEUTROPHIL # 3.9 10^3/ul (1.6-7.5); NEUTROPHILS % 49.1 % (39.0-77.0); PLATELET COUNT 213 10^3/UL (140-415); RED BLOOD COUNT 2.96 10^6/ul (4.70-6.10); RED CELL DISTRIBUTION WIDTH 16.1 % (11.5-14.5)
[2018-06-15 20:56] LABS: ANION GAP 3 (5-13); BLOOD UREA NITROGEN 31 mg/dl (7-20); CALCIUM 7.6 mg/dl (8.4-10.2); CARBON DIOXIDE 21 mmol/L (21-31); CHLORIDE 109 mmol/L (97-110); CREATININE 1.58 mg/dl (0.61-1.24); Estimated GFR 46 mL/min (>60); GLUCOSE 218 mg/dl (70-220); SODIUM 133 mmol/L (135-144)
[2018-06-15 21:02] LABS: POTASSIUM 3.6 mmol/L (3.5-5.1)
[2018-06-15] MEDS: clonAZEPAM 0.5 MG TAB PO (21:52)
[2018-06-16] MEDS: HYDROCODONE/APAP (5/325) TAB PO (00:02)
[2018-06-16] MEDS ORDERED: HEPARIN 5,000 UNIT/0.5 ML VIAL ×3 (04:45→20:19)
[2018-06-16] MEDS: PANTOPRAZOLE (EC) 40 MG TAB PO (05:15)
[2018-06-16] MEDS: HEPARIN 5,000 UNIT/1 ML VIAL SC ×3 (05:16→21:09)
[2018-06-16] MEDS: DEXTROSE 5%-0.9% NACL 1,000 ML IV ×4 (06:48→23:30)
[2018-06-16] MEDS: ACCU-CHEK XX ×4 (07:00→21:09)
[2018-06-16] MEDS: INSULIN ASPART [NOVOLOG] 3 ML PEN SC ×4 (08:00→21:09)
[2018-06-16] MEDS: ARTIFICIAL TEARS 15 ML OPH BOTH EYES ×4 (08:20→21:07)
[2018-06-16] MEDS: RISPERIDONE 0.25 MG TAB PO ×2 (08:27→20:59)
[2018-06-16] MEDS: DOXYCYCLINE 100 MG TAB PO ×2 (08:27→20:58)
[2018-06-16] MEDS: METOPROLOL 25 MG TAB PO ×2 (08:27→21:00)
[2018-06-16] MEDS: CYCLOBENZAPRINE 10 MG TAB PO ×2 (08:27→20:59)
[2018-06-16] MEDS: METHADONE (1 MG/ML 5 ML PO UD SYG) PO (08:28)
[2018-06-16] MEDS: COLLAGENASE 5 GM (UD JAR) TOP (08:29)
[2018-06-16] MEDS: BALSAM PERU/CASTOR OIL 60 GM TUBE TOP ×2 (08:29→21:07)
[2018-06-16 08:45] LABS: ADD MAN DIFF? NO
[2018-06-16 09:03] LABS: WHITE BLOOD COUNT 9.3 10^3/ul (4.8-10.8)
[2018-06-16 09:03] LABS: BASOPHIL # 0.1 10^3/ul (0.0-0.1); BASOPHILS % 0.5 % (0.0-2.0); EOSINOPHILS # 0.7 10^3/ul (0.0-0.5); HEMATOCRIT 28.8 % (42.0-52.0); HEMOGLOBIN 9.4 g/dl (14.0-18.0); LYMPHOCYTES # 2.8 10^3/ul (0.8-2.9); LYMPHOCYTES % 29.6 % (15.0-51.0); MEAN CORPUSCULAR HEMOGLOBIN 28.1 pg (29.0-33.0); MEAN CORPUSCULAR HGB CONC 32.6 g/dl (32.0-37.0); MONOCYTE # 0.7 10^3/ul (0.3-0.9); MONOCYTES % 7.8 % (0.0-11.0); NEUTROPHILS % 54.2 % (39.0-77.0); PLATELET COUNT 255 10^3/UL (140-415); RED BLOOD COUNT 3.35 10^6/ul (4.70-6.10); RED CELL DISTRIBUTION WIDTH 16.1 % (11.5-14.5)
[2018-06-16 09:40] LABS: ANION GAP 2 (5-13); BLOOD UREA NITROGEN 29 mg/dl (7-20); CALCIUM 8.1 mg/dl (8.4-10.2); CARBON DIOXIDE 22 mmol/L (21-31); CHLORIDE 110 mmol/L (97-110); CREATININE 1.67 mg/dl (0.61-1.24); Estimated GFR 43 mL/min (>60); GLUCOSE 118 mg/dl (70-220); POTASSIUM 3.7 mmol/L (3.5-5.1); SODIUM 134 mmol/L (135-144)
[2018-06-16] MEDS: clonAZEPAM 0.5 MG TAB PO (14:56)
[2018-06-16] MEDS ORDERED: MEROPENEM 500MG/50 ML (PMX) 50 ML IVPB (21:00)
[2018-06-16] MEDS: CEFEPIME 1GM/50 ML (PMX) 50 ML IVPB (21:06)
[2018-06-17] MEDS: HYDROCODONE/APAP (5/325) TAB PO (02:18)
[2018-06-17] MEDS ORDERED: HEPARIN 5,000 UNIT/0.5 ML VIAL ×3 (05:29→21:20)
[2018-06-17] MEDS: PANTOPRAZOLE (EC) 40 MG TAB PO (06:00)
[2018-06-17] MEDS: HEPARIN 5,000 UNIT/1 ML VIAL SC ×3 (06:01→21:45)
[2018-06-17 06:15] LABS: ADD MAN DIFF? NO
[2018-06-17 06:22] LABS: BASOPHILS % 0.5 % (0.0-2.0); EOSINOPHILS # 0.5 10^3/ul (0.0-0.5); EOSINOPHILS % 6.1 % (0.0-7.0); HEMATOCRIT 28.4 % (42.0-52.0); HEMOGLOBIN 9.4 g/dl (14.0-18.0); LYMPHOCYTES # 2.6 10^3/ul (0.8-2.9); LYMPHOCYTES % 30.2 % (15.0-51.0); MEAN CORPUSCULAR HEMOGLOBIN 28.1 pg (29.0-33.0); MEAN CORPUSCULAR HGB CONC 33.1 g/dl (32.0-37.0); MEAN CORPUSCULAR VOLUME 84.8 fl (82.0-101.0); MEAN PLATELET VOLUME 8.7 fl (7.4-10.4); MONOCYTE # 0.6 10^3/ul (0.3-0.9); MONOCYTES % 6.8 % (0.0-11.0); NEUTROPHIL # 4.8 10^3/ul (1.6-7.5); NEUTROPHILS % 55.6 % (39.0-77.0); PLATELET COUNT 253 10^3/UL (140-415); RED BLOOD COUNT 3.35 10^6/ul (4.70-6.10); RED CELL DISTRIBUTION WIDTH 15.9 % (11.5-14.5)
[2018-06-17 06:22] LABS: WHITE BLOOD COUNT 8.7 10^3/ul (4.8-10.8)
[2018-06-17 06:44] LABS: ANION GAP 1 (5-13); BLOOD UREA NITROGEN 30 mg/dl (7-20); CALCIUM 7.9 mg/dl (8.4-10.2); CARBON DIOXIDE 21 mmol/L (21-31); CHLORIDE 111 mmol/L (97-110); CREATININE 1.72 mg/dl (0.61-1.24); Estimated GFR 42 mL/min (>60); GLUCOSE 181 mg/dl (70-220); POTASSIUM 3.7 mmol/L (3.5-5.1); SODIUM 133 mmol/L (135-144)
[2018-06-17] MEDS: ACCU-CHEK XX ×4 (07:00→21:00)
[2018-06-17] MEDS: DEXTROSE 5%-0.9% NACL 1,000 ML IV (08:06)
[2018-06-17] MEDS: COLLAGENASE 5 GM (UD JAR) TOP (08:55)
[2018-06-17] MEDS: DOXYCYCLINE 100 MG TAB PO ×2 (08:55→21:29)
[2018-06-17] MEDS: RISPERIDONE 0.25 MG TAB PO ×2 (08:55→21:29)
[2018-06-17] MEDS: METOPROLOL 25 MG TAB PO ×2 (08:56→21:31)
[2018-06-17] MEDS: METHADONE (1 MG/ML 5 ML PO UD SYG) PO (08:57)
[2018-06-17] MEDS: INSULIN ASPART [NOVOLOG] 3 ML PEN SC ×4 (08:58→21:44)
[2018-06-17] MEDS: CEFEPIME 1GM/50 ML (PMX) 50 ML IVPB ×2 (08:59→22:10)
[2018-06-17] MEDS: BALSAM PERU/CASTOR OIL 60 GM TUBE TOP ×2 (09:00→21:00)
[2018-06-17] MEDS: CYCLOBENZAPRINE 10 MG TAB PO ×2 (09:00→21:28)
[2018-06-17] MEDS: ARTIFICIAL TEARS 15 ML OPH BOTH EYES ×4 (09:01→21:00)
[2018-06-17] MEDS: NS + KCL 20 MEQ 1,000 ML IV (13:00)
[2018-06-17] MEDS: ALBUTEROL/IPRATROPIUM (NEB) 3 ML AMP HHN (23:40)
[2018-06-18] MEDS: NS + KCL 20 MEQ 1,000 ML IV ×2 (03:31→16:50)
[2018-06-18] MEDS ORDERED: HEPARIN 5,000 UNIT/0.5 ML VIAL ×3 (04:56→20:13)
[2018-06-18] MEDS: PANTOPRAZOLE (EC) 40 MG TAB PO (05:07)
[2018-06-18] MEDS: HEPARIN 5,000 UNIT/1 ML VIAL SC ×3 (05:11→21:19)
[2018-06-18] MEDS: INSULIN ASPART [NOVOLOG] 3 ML PEN SC ×4 (08:00→21:00)
[2018-06-18] MEDS: ACCU-CHEK XX ×4 (08:35→21:33)
[2018-06-18] MEDS: METOPROLOL 25 MG TAB PO ×2 (08:43→21:03)
[2018-06-18] MEDS: COLLAGENASE 5 GM (UD JAR) TOP (08:44)
[2018-06-18] MEDS: DOXYCYCLINE 100 MG TAB PO ×2 (08:44→21:01)
[2018-06-18] MEDS: CYCLOBENZAPRINE 10 MG TAB PO ×2 (08:44→21:02)
[2018-06-18] MEDS: RISPERIDONE 0.25 MG TAB PO ×2 (08:44→21:02)
[2018-06-18] MEDS: METHADONE (1 MG/ML 5 ML PO UD SYG) PO (08:45)
[2018-06-18] MEDS: BALSAM PERU/CASTOR OIL 60 GM TUBE TOP ×2 (08:45→21:05)
[2018-06-18] MEDS: ARTIFICIAL TEARS 15 ML OPH BOTH EYES ×4 (08:45→21:05)
[2018-06-18] MEDS: CEFEPIME 1GM/50 ML (PMX) 50 ML IVPB ×2 (08:47→21:01)
[2018-06-18] MEDS: clonAZEPAM 0.5 MG TAB PO (16:50)
[2018-06-18] MEDS: LEVALBUTEROL (NEB) 0.63 MG/3 ML AMP HHN (17:04)
[2018-06-18] MEDS: CEPASTAT LOZENGE MT (21:01)
[2018-06-19] MEDS: HYDROCODONE/APAP (5/325) TAB PO (02:42)
[2018-06-19] MEDS ORDERED: HEPARIN 5,000 UNIT/0.5 ML VIAL ×3 (06:08→20:08)
[2018-06-19] MEDS: PANTOPRAZOLE (EC) 40 MG TAB PO (06:12)
[2018-06-19] MEDS: HEPARIN 5,000 UNIT/1 ML VIAL SC ×3 (06:14→21:05)
[2018-06-19] MEDS: ACCU-CHEK XX ×4 (07:00→21:06)
[2018-06-19 07:51] LABS: ANION GAP 4 (5-13); BLOOD UREA NITROGEN 42 mg/dl (7-20); CALCIUM 8.4 mg/dl (8.4-10.2); CARBON DIOXIDE 21 mmol/L (21-31); CHLORIDE 109 mmol/L (97-110); Estimated GFR 40 mL/min (>60); GLUCOSE 121 mg/dl (70-220); POTASSIUM 4.3 mmol/L (3.5-5.1); SODIUM 134 mmol/L (135-144)
[2018-06-19] MEDS: NS + KCL 20 MEQ 1,000 ML IV ×3 (07:54→23:15)
[2018-06-19] MEDS: INSULIN ASPART [NOVOLOG] 3 ML PEN SC ×4 (08:00→20:23)
[2018-06-19] MEDS: CEFEPIME 1GM/50 ML (PMX) 50 ML IVPB ×2 (08:30→20:13)
[2018-06-19] MEDS: RISPERIDONE 0.25 MG TAB PO ×2 (08:30→20:14)
[2018-06-19] MEDS: DOXYCYCLINE 100 MG TAB PO ×2 (08:30→20:14)
[2018-06-19] MEDS: CYCLOBENZAPRINE 10 MG TAB PO ×2 (08:30→20:14)
[2018-06-19] MEDS: COLLAGENASE 5 GM (UD JAR) TOP (08:31)
[2018-06-19] MEDS: METHADONE (1 MG/ML 5 ML PO UD SYG) PO (08:31)
[2018-06-19] MEDS: METOPROLOL 25 MG TAB PO ×3 (08:35→20:23)
[2018-06-19] MEDS: ARTIFICIAL TEARS 15 ML OPH BOTH EYES ×4 (08:36→21:00)
[2018-06-19] MEDS: BALSAM PERU/CASTOR OIL 60 GM TUBE TOP ×2 (08:39→21:04)
[2018-06-19] MEDS: ACETYLCYSTEINE 20% 4 ML VIAL NEB (21:55)
[2018-06-19] MEDS: IPRATROPIUM (NEB) 0.5 MG/2.5 ML AMP HHN (21:55)
[2018-06-20] MEDS: clonAZEPAM 0.5 MG TAB PO ×2 (00:13→22:59)
[2018-06-20] MEDS: CEPASTAT LOZENGE MT (01:04)
[2018-06-20] MEDS ORDERED: HEPARIN 5,000 UNIT/0.5 ML VIAL ×3 (05:49→21:11)
[2018-06-20] MEDS: HEPARIN 5,000 UNIT/1 ML VIAL SC ×3 (05:57→21:18)
[2018-06-20] MEDS: PANTOPRAZOLE (EC) 40 MG TAB PO (05:57)
[2018-06-20] MEDS: HYDROCODONE/APAP (5/325) TAB PO ×2 (06:33→21:20)
[2018-06-20] MEDS: ACCU-CHEK XX ×4 (07:00→21:00)
[2018-06-20] MEDS: INSULIN ASPART [NOVOLOG] 3 ML PEN SC ×4 (08:13→20:39)
[2018-06-20] MEDS: METOPROLOL 25 MG TAB PO ×2 (08:28→20:45)
[2018-06-20] MEDS: RISPERIDONE 0.25 MG TAB PO ×2 (08:28→20:40)
[2018-06-20] MEDS: DOXYCYCLINE 100 MG TAB PO ×2 (08:28→20:40)
[2018-06-20] MEDS: CYCLOBENZAPRINE 10 MG TAB PO ×2 (08:28→20:40)
[2018-06-20] MEDS: METHADONE (1 MG/ML 5 ML PO UD SYG) PO (08:29)
[2018-06-20] MEDS: COLLAGENASE 5 GM (UD JAR) TOP (08:31)
[2018-06-20] MEDS: BALSAM PERU/CASTOR OIL 60 GM TUBE TOP ×2 (08:32→20:45)
[2018-06-20] MEDS: ARTIFICIAL TEARS 15 ML OPH BOTH EYES ×4 (08:33→20:45)
[2018-06-20] MEDS: CEFEPIME 1GM/50 ML (PMX) 50 ML IVPB ×2 (08:44→20:34)
[2018-06-20 08:59] LABS: ADD MAN DIFF? NO
[2018-06-20 09:03] LABS: BASOPHIL # 0.1 10^3/ul (0.0-0.1); BASOPHILS % 0.4 % (0.0-2.0); EOSINOPHILS # 0.6 10^3/ul (0.0-0.5); EOSINOPHILS % 4.9 % (0.0-7.0); HEMATOCRIT 29.3 % (42.0-52.0); HEMOGLOBIN 9.7 g/dl (14.0-18.0); LYMPHOCYTES # 4.1 10^3/ul (0.8-2.9); LYMPHOCYTES % 31.3 % (15.0-51.0); MEAN CORPUSCULAR HEMOGLOBIN 27.6 pg (29.0-33.0); MEAN CORPUSCULAR HGB CONC 33.1 g/dl (32.0-37.0); MEAN CORPUSCULAR VOLUME 83.5 fl (82.0-101.0); MEAN PLATELET VOLUME 8.8 fl (7.4-10.4); MONOCYTE # 0.9 10^3/ul (0.3-0.9); MONOCYTES % 6.7 % (0.0-11.0); NEUTROPHIL # 7.2 10^3/ul (1.6-7.5); NEUTROPHILS % 54.6 % (39.0-77.0); PLATELET COUNT 290 10^3/UL (140-415); RED BLOOD COUNT 3.51 10^6/ul (4.70-6.10); RED CELL DISTRIBUTION WIDTH 15.9 % (11.5-14.5)
[2018-06-20 09:03] LABS: WHITE BLOOD COUNT 13.2 10^3/ul (4.8-10.8)
[2018-06-20 09:33] LABS: ANION GAP 7 (5-13); BLOOD UREA NITROGEN 46 mg/dl (7-20); CALCIUM 7.8 mg/dl (8.4-10.2); CARBON DIOXIDE 19 mmol/L (21-31); CHLORIDE 108 mmol/L (97-110); CREATININE 1.78 mg/dl (0.61-1.24); Estimated GFR 40 mL/min (>60); GLUCOSE 148 mg/dl (70-220); POTASSIUM 3.9 mmol/L (3.5-5.1); SODIUM 134 mmol/L (135-144)
[2018-06-20] MEDS: NS + KCL 20 MEQ 1,000 ML IV (12:16)
[2018-06-20 13:55] LABS: LACTIC ACID 0.8 mmol/L (0.5-2.0)
[2018-06-20] MEDS: ALBUTEROL/IPRATROPIUM (NEB) 3 ML AMP HHN (22:28)
[2018-06-21] MEDS: NS + KCL 20 MEQ 1,000 ML IV ×2 (03:15→17:14)
[2018-06-21] MEDS ORDERED: HEPARIN 5,000 UNIT/0.5 ML VIAL ×3 (05:16→20:42)
[2018-06-21] MEDS: PANTOPRAZOLE (EC) 40 MG TAB PO (05:27)
[2018-06-21] MEDS: HEPARIN 5,000 UNIT/1 ML VIAL SC ×3 (05:35→21:03)
[2018-06-21] MEDS: ACCU-CHEK XX ×4 (07:00→20:52)
[2018-06-21] MEDS: INSULIN ASPART [NOVOLOG] 3 ML PEN SC ×4 (08:00→20:52)
[2018-06-21] MEDS: CEFEPIME 1GM/50 ML (PMX) 50 ML IVPB (08:33)
[2018-06-21] MEDS: ARTIFICIAL TEARS 15 ML OPH BOTH EYES ×4 (08:34→20:51)
[2018-06-21] MEDS: COLLAGENASE 5 GM (UD JAR) TOP (08:34)
[2018-06-21] MEDS: METHADONE (1 MG/ML 5 ML PO UD SYG) PO (08:35)
[2018-06-21] MEDS: CYCLOBENZAPRINE 10 MG TAB PO ×2 (08:35→21:04)
[2018-06-21] MEDS: RISPERIDONE 0.25 MG TAB PO ×2 (08:36→20:50)
[2018-06-21] MEDS: METOPROLOL 25 MG TAB PO ×2 (08:36→20:51)
[2018-06-21] MEDS: DOXYCYCLINE 100 MG TAB PO ×2 (08:36→20:50)
[2018-06-21] MEDS: BALSAM PERU/CASTOR OIL 60 GM TUBE TOP ×2 (08:36→20:57)
[2018-06-21 08:40] LABS: ADD MAN DIFF? NO
[2018-06-21 08:53] LABS: WHITE BLOOD COUNT 9.7 10^3/ul (4.8-10.8)
[2018-06-21 08:53] LABS: BASOPHILS % 0.4 % (0.0-2.0); EOSINOPHILS # 0.7 10^3/ul (0.0-0.5); HEMATOCRIT 28.6 % (42.0-52.0); HEMOGLOBIN 9.4 g/dl (14.0-18.0); LYMPHOCYTES # 3.6 10^3/ul (0.8-2.9); MEAN CORPUSCULAR HEMOGLOBIN 28.2 pg (29.0-33.0); MEAN CORPUSCULAR HGB CONC 32.9 g/dl (32.0-37.0); MEAN CORPUSCULAR VOLUME 85.9 fl (82.0-101.0); MEAN PLATELET VOLUME 8.7 fl (7.4-10.4); MONOCYTE # 0.6 10^3/ul (0.3-0.9); MONOCYTES % 6.6 % (0.0-11.0); NEUTROPHIL # 4.5 10^3/ul (1.6-7.5); NEUTROPHILS % 46.9 % (39.0-77.0); PLATELET COUNT 276 10^3/UL (140-415); RED BLOOD COUNT 3.33 10^6/ul (4.70-6.10); RED CELL DISTRIBUTION WIDTH 15.9 % (11.5-14.5)
[2018-06-21 09:05] LABS: ANION GAP 3 (5-13); BLOOD UREA NITROGEN 53 mg/dl (7-20); CALCIUM 8.4 mg/dl (8.4-10.2); CARBON DIOXIDE 21 mmol/L (21-31); CHLORIDE 111 mmol/L (97-110); CREATININE 1.73 mg/dl (0.61-1.24); Estimated GFR 42 mL/min (>60); GLUCOSE 113 mg/dl (70-220); POTASSIUM 4.3 mmol/L (3.5-5.1); SODIUM 135 mmol/L (135-144)
[2018-06-21] MEDS: HYDROCODONE/APAP (5/325) TAB PO ×2 (13:17→20:51)
[2018-06-22] MEDS ORDERED: HEPARIN 5,000 UNIT/0.5 ML VIAL ×3 (05:40→21:43)
[2018-06-22] MEDS: PANTOPRAZOLE (EC) 40 MG TAB PO (05:44)
[2018-06-22] MEDS: HEPARIN 5,000 UNIT/1 ML VIAL SC ×3 (05:45→22:12)
[2018-06-22] MEDS: NS + KCL 20 MEQ 1,000 ML IV (05:57)
[2018-06-22 06:57] LABS: ADD MAN DIFF? NO
[2018-06-22 07:00] LABS: WHITE BLOOD COUNT 8.5 10^3/ul (4.8-10.8)
[2018-06-22 07:00] LABS: BASOPHILS % 0.5 % (0.0-2.0); EOSINOPHILS # 0.7 10^3/ul (0.0-0.5); EOSINOPHILS % 7.8 % (0.0-7.0); HEMATOCRIT 27.1 % (42.0-52.0); HEMOGLOBIN 8.9 g/dl (14.0-18.0); LYMPHOCYTES # 2.5 10^3/ul (0.8-2.9); LYMPHOCYTES % 29.2 % (15.0-51.0); MEAN CORPUSCULAR HEMOGLOBIN 27.9 pg (29.0-33.0); MEAN CORPUSCULAR HGB CONC 32.8 g/dl (32.0-37.0); MEAN PLATELET VOLUME 8.9 fl (7.4-10.4); MONOCYTE # 0.5 10^3/ul (0.3-0.9); MONOCYTES % 6.2 % (0.0-11.0); NEUTROPHIL # 4.7 10^3/ul (1.6-7.5); NEUTROPHILS % 54.8 % (39.0-77.0); PLATELET COUNT 282 10^3/UL (140-415); RED BLOOD COUNT 3.19 10^6/ul (4.70-6.10)
[2018-06-22] MEDS: ACCU-CHEK XX ×4 (07:00→21:10)
[2018-06-22 07:32] LABS: ANION GAP 6 (5-13); BLOOD UREA NITROGEN 48 mg/dl (7-20); CALCIUM 8.1 mg/dl (8.4-10.2); CARBON DIOXIDE 19 mmol/L (21-31); CHLORIDE 113 mmol/L (97-110); CREATININE 1.76 mg/dl (0.61-1.24); Estimated GFR 41 mL/min (>60); GLUCOSE 137 mg/dl (70-220); POTASSIUM 4.2 mmol/L (3.5-5.1); SODIUM 138 mmol/L (135-144)
[2018-06-22] MEDS: INSULIN ASPART [NOVOLOG] 3 ML PEN SC ×4 (08:00→21:00)
[2018-06-22] MEDS: DOXYCYCLINE 100 MG TAB PO ×2 (09:00→22:05)
[2018-06-22] MEDS: ARTIFICIAL TEARS 15 ML OPH BOTH EYES ×4 (09:00→22:04)
[2018-06-22] MEDS: CYCLOBENZAPRINE 10 MG TAB PO ×2 (09:01→22:05)
[2018-06-22] MEDS: RISPERIDONE 0.25 MG TAB PO ×2 (09:01→22:05)
[2018-06-22] MEDS: BALSAM PERU/CASTOR OIL 60 GM TUBE TOP (09:04)
[2018-06-22] MEDS: COLLAGENASE 5 GM (UD JAR) TOP (09:04)
[2018-06-22] MEDS: METHADONE (1 MG/ML 5 ML PO UD SYG) PO (09:25)
[2018-06-22] MEDS: SOD CHLORIDE 0.9% 1,000 ML IV (09:47)
[2018-06-22] MEDS: clonAZEPAM 0.5 MG TAB PO (13:51)
[2018-06-22] MEDS ORDERED: VANCOMYCIN IV PER PHARMACY XX (14:30)
[2018-06-22] MEDS ORDERED: [UNRECOGNIZED DRUG - OTHER] XX (14:30)
[2018-06-22] MEDS: CASPOFUNGIN 50 MG in SOD CHLORIDE 0.9% 250 ML IVPB (16:53)
[2018-06-22] MEDS: VANCOMYCIN 1.25 GM in SOD CHLORIDE 0.9% 250 ML IVPB (17:35)
[2018-06-22] MEDS: [UNRECOGNIZED DRUG - REMARK] XX (18:30)
[2018-06-22] MEDS: MEROPENEM 1 GM/50ML(PMX) 50 ML IVPB (18:42)
[2018-06-23] MEDS: NS + KCL 20 MEQ 1,000 ML IV ×2 (00:06→12:11)
[2018-06-23] MEDS: BALSAM PERU/CASTOR OIL 60 GM TUBE TOP ×3 (00:14→20:59)
[2018-06-23] MEDS: MEROPENEM 1 GM/50ML(PMX) 50 ML IVPB ×3 (01:56→20:59)
[2018-06-23] MEDS: [UNRECOGNIZED DRUG - REMARK] XX ×3 (02:30→18:30)
[2018-06-23 05:33] LABS: ADD MAN DIFF? NO
[2018-06-23 05:49] LABS: BASOPHIL # 0.1 10^3/ul (0.0-0.1); BASOPHILS % 0.6 % (0.0-2.0); EOSINOPHILS # 0.8 10^3/ul (0.0-0.5); EOSINOPHILS % 9.3 % (0.0-7.0); HEMATOCRIT 27.3 % (42.0-52.0); LYMPHOCYTES # 3.1 10^3/ul (0.8-2.9); LYMPHOCYTES % 36.3 % (15.0-51.0); MEAN CORPUSCULAR HEMOGLOBIN 28.2 pg (29.0-33.0); MEAN CORPUSCULAR VOLUME 85.6 fl (82.0-101.0); MEAN PLATELET VOLUME 9.2 fl (7.4-10.4); MONOCYTE # 0.6 10^3/ul (0.3-0.9); MONOCYTES % 7.4 % (0.0-11.0); NEUTROPHIL # 3.9 10^3/ul (1.6-7.5); PLATELET COUNT 296 10^3/UL (140-415); RED BLOOD COUNT 3.19 10^6/ul (4.70-6.10); RED CELL DISTRIBUTION WIDTH 15.9 % (11.5-14.5)
[2018-06-23 05:49] LABS: WHITE BLOOD COUNT 8.6 10^3/ul (4.8-10.8)
[2018-06-23 06:05] LABS: ANION GAP 5 (5-13); BLOOD UREA NITROGEN 45 mg/dl (7-20); CALCIUM 8.4 mg/dl (8.4-10.2); CARBON DIOXIDE 20 mmol/L (21-31); CHLORIDE 112 mmol/L (97-110); CREATININE 1.57 mg/dl (0.61-1.24); Estimated GFR 46 mL/min (>60); GLUCOSE 93 mg/dl (70-220); POTASSIUM 4.3 mmol/L (3.5-5.1); SODIUM 137 mmol/L (135-144)
[2018-06-23] MEDS ORDERED: HEPARIN 5,000 UNIT/0.5 ML VIAL ×3 (06:06→21:10)
[2018-06-23] MEDS: PANTOPRAZOLE (EC) 40 MG TAB PO (06:12)
[2018-06-23] MEDS: HEPARIN 5,000 UNIT/1 ML VIAL SC ×3 (06:22→21:21)
[2018-06-23] MEDS: clonAZEPAM 0.5 MG TAB PO (06:24)
[2018-06-23] MEDS: ACCU-CHEK XX ×4 (07:00→20:59)
[2018-06-23] MEDS: INSULIN ASPART [NOVOLOG] 3 ML PEN SC ×4 (07:57→21:11)
[2018-06-23] MEDS: ARTIFICIAL TEARS 15 ML OPH BOTH EYES ×4 (07:58→21:00)
[2018-06-23] MEDS: COLLAGENASE 5 GM (UD JAR) TOP (08:46)
[2018-06-23] MEDS: CYCLOBENZAPRINE 10 MG TAB PO ×2 (08:47→20:58)
[2018-06-23] MEDS: DOXYCYCLINE 100 MG TAB PO ×2 (08:47→20:58)
[2018-06-23] MEDS: RISPERIDONE 0.25 MG TAB PO ×2 (08:47→20:58)
[2018-06-23] MEDS: METHADONE (1 MG/ML 5 ML PO UD SYG) PO (09:25)
[2018-06-23] MEDS: CASPOFUNGIN 50 MG in SOD CHLORIDE 0.9% 250 ML IVPB (16:31)
[2018-06-23] MEDS: HYDROCODONE/APAP (5/325) TAB PO ×2 (16:45→22:41)
[2018-06-23] MEDS: VANCOMYCIN 750 MG in SOD CHLORIDE 0.9% 150 ML IVPB (17:34)
[2018-06-24] MEDS: NS + KCL 20 MEQ 1,000 ML IV ×2 (01:22→17:20)
[2018-06-24] MEDS: [UNRECOGNIZED DRUG - REMARK] XX ×3 (01:27→17:40)
[2018-06-24] MEDS: HYDROCODONE/APAP (5/325) TAB PO (03:01)
[2018-06-24] MEDS: clonAZEPAM 0.5 MG TAB PO ×2 (03:57→23:01)
[2018-06-24 05:15] LABS: WHITE BLOOD COUNT 8.9 10^3/ul (4.8-10.8)
[2018-06-24 05:15] LABS: ADD MAN DIFF? NO; BASOPHILS % 0.4 % (0.0-2.0); EOSINOPHILS # 0.8 10^3/ul (0.0-0.5); EOSINOPHILS % 9.1 % (0.0-7.0); HEMATOCRIT 26.5 % (42.0-52.0); HEMOGLOBIN 8.7 g/dl (14.0-18.0); LYMPHOCYTES # 3.2 10^3/ul (0.8-2.9); LYMPHOCYTES % 35.9 % (15.0-51.0); MEAN CORPUSCULAR HGB CONC 32.8 g/dl (32.0-37.0); MEAN CORPUSCULAR VOLUME 85.2 fl (82.0-101.0); MEAN PLATELET VOLUME 8.6 fl (7.4-10.4); MONOCYTE # 0.6 10^3/ul (0.3-0.9); MONOCYTES % 6.3 % (0.0-11.0); NEUTROPHIL # 4.2 10^3/ul (1.6-7.5); PLATELET COUNT 293 10^3/UL (140-415); RED BLOOD COUNT 3.11 10^6/ul (4.70-6.10)
[2018-06-24] MEDS ORDERED: HEPARIN 5,000 UNIT/0.5 ML VIAL ×3 (05:27→20:44)
[2018-06-24] MEDS: PANTOPRAZOLE (EC) 40 MG TAB PO (05:31)
[2018-06-24] MEDS: HEPARIN 5,000 UNIT/1 ML VIAL SC ×3 (05:46→21:13)
[2018-06-24] MEDS: ACCU-CHEK XX ×3 (05:47→17:39)
[2018-06-24 05:48] LABS: ANION GAP 3 (5-13); BLOOD UREA NITROGEN 43 mg/dl (7-20); CARBON DIOXIDE 20 mmol/L (21-31); CHLORIDE 113 mmol/L (97-110); CREATININE 1.38 mg/dl (0.61-1.24); Estimated GFR 54 mL/min (>60); GLUCOSE 88 mg/dl (70-220); POTASSIUM 4.3 mmol/L (3.5-5.1); SODIUM 136 mmol/L (135-144)
[2018-06-24] MEDS: INSULIN ASPART [NOVOLOG] 3 ML PEN SC ×4 (08:00→21:13)
[2018-06-24] MEDS: ARTIFICIAL TEARS 15 ML OPH BOTH EYES ×4 (09:00→20:54)
[2018-06-24] MEDS: DOXYCYCLINE 100 MG TAB PO ×2 (09:40→20:54)
[2018-06-24] MEDS: RISPERIDONE 0.25 MG TAB PO ×2 (09:40→20:55)
[2018-06-24] MEDS: CYCLOBENZAPRINE 10 MG TAB PO ×2 (09:41→20:54)
[2018-06-24] MEDS: MEROPENEM 1 GM/50ML(PMX) 50 ML IVPB ×2 (09:41→20:55)
[2018-06-24] MEDS: METHADONE (1 MG/ML 5 ML PO UD SYG) PO (10:43)
[2018-06-24] MEDS: CASPOFUNGIN 50 MG in SOD CHLORIDE 0.9% 250 ML IVPB (15:11)
[2018-06-24] MEDS: COLLAGENASE 5 GM (UD JAR) TOP (15:15)
[2018-06-24] MEDS: BALSAM PERU/CASTOR OIL 60 GM TUBE TOP ×2 (15:15→21:15)
[2018-06-24] MEDS ORDERED: VANCOMYCIN 1.25 GM in SOD CHLORIDE 0.9% 250 ML IVPB (16:00)
[2018-06-24] MEDS: 1/2 NS + KCL 20 MEQ 1,000 ML IV (23:00)
[2018-06-25] MEDS: ALBUTEROL/IPRATROPIUM (NEB) 3 ML AMP HHN ×3 (00:42→22:34)
[2018-06-25] MEDS: HYDROCODONE/APAP (5/325) TAB PO ×3 (01:10→23:54)
[2018-06-25] MEDS: [UNRECOGNIZED DRUG - REMARK] XX ×3 (01:42→17:36)
[2018-06-25] MEDS ORDERED: HEPARIN 5,000 UNIT/0.5 ML VIAL ×3 (05:05→21:49)
[2018-06-25] MEDS: PANTOPRAZOLE (EC) 40 MG TAB PO (05:12)
[2018-06-25] MEDS: HEPARIN 5,000 UNIT/1 ML VIAL SC ×3 (05:25→22:31)
[2018-06-25 07:45] LABS: ANION GAP 3 (5-13); BLOOD UREA NITROGEN 42 mg/dl (7-20); CALCIUM 8.5 mg/dl (8.4-10.2); CARBON DIOXIDE 22 mmol/L (21-31); CHLORIDE 109 mmol/L (97-110); CREATININE 1.57 mg/dl (0.61-1.24); Estimated GFR 46 mL/min (>60); GLUCOSE 82 mg/dl (70-220); POTASSIUM 4.7 mmol/L (3.5-5.1); SODIUM 134 mmol/L (135-144)
[2018-06-25] MEDS: INSULIN ASPART [NOVOLOG] 3 ML PEN SC ×4 (07:47→21:45)
[2018-06-25] MEDS: ARTIFICIAL TEARS 15 ML OPH BOTH EYES (09:00)
[2018-06-25] MEDS: RISPERIDONE 0.25 MG TAB PO ×2 (09:40→21:06)
[2018-06-25] MEDS: MEROPENEM 1 GM/50ML(PMX) 50 ML IVPB ×2 (09:40→21:05)
[2018-06-25] MEDS: DOXYCYCLINE 100 MG TAB PO ×2 (09:40→21:05)
[2018-06-25] MEDS: CYCLOBENZAPRINE 10 MG TAB PO ×2 (09:40→21:06)
[2018-06-25] MEDS: METHADONE (1 MG/ML 5 ML PO UD SYG) PO (10:50)
[2018-06-25] MEDS: 1/2 NS + KCL 20 MEQ 1,000 ML IV (14:11)
[2018-06-25] MEDS: COLLAGENASE 5 GM (UD JAR) TOP (15:00)
[2018-06-25] MEDS: BALSAM PERU/CASTOR OIL 60 GM TUBE TOP ×2 (15:00→21:07)
[2018-06-26] MEDS: [UNRECOGNIZED DRUG - REMARK] XX ×3 (02:30→18:30)
[2018-06-26] MEDS ORDERED: HEPARIN 5,000 UNIT/0.5 ML VIAL ×3 (05:36→20:32)
[2018-06-26 06:17] LABS: ANION GAP 6 (5-13); BLOOD UREA NITROGEN 45 mg/dl (7-20); CALCIUM 8.8 mg/dl (8.4-10.2); CARBON DIOXIDE 21 mmol/L (21-31); CHLORIDE 103 mmol/L (97-110); CREATININE 1.36 mg/dl (0.61-1.24); Estimated GFR 55 mL/min (>60); GLUCOSE 300 mg/dl (70-220); POTASSIUM 5.5 mmol/L (3.5-5.1); SODIUM 130 mmol/L (135-144)
[2018-06-26] MEDS: 1/2 NS + KCL 20 MEQ 1,000 ML IV (06:28)
[2018-06-26] MEDS: PANTOPRAZOLE (EC) 40 MG TAB PO (06:35)
[2018-06-26] MEDS: HEPARIN 5,000 UNIT/1 ML VIAL SC ×3 (06:42→21:48)
[2018-06-26] MEDS: INSULIN ASPART [NOVOLOG] 3 ML PEN SC ×4 (08:00→21:49)
[2018-06-26] MEDS: RISPERIDONE 0.25 MG TAB PO ×2 (08:25→21:33)
[2018-06-26] MEDS: MEROPENEM 1 GM/50ML(PMX) 50 ML IVPB (08:25)
[2018-06-26] MEDS: DOXYCYCLINE 100 MG TAB PO ×2 (08:25→21:32)
[2018-06-26] MEDS: CYCLOBENZAPRINE 10 MG TAB PO ×2 (08:26→21:51)
[2018-06-26] MEDS: COLLAGENASE 5 GM (UD JAR) TOP (08:27)
[2018-06-26] MEDS: METHADONE (1 MG/ML 5 ML PO UD SYG) PO (08:27)
[2018-06-26] MEDS: BALSAM PERU/CASTOR OIL 60 GM TUBE TOP ×2 (08:27→21:39)
[2018-06-26] MEDS: ALBUTEROL/IPRATROPIUM (NEB) 3 ML AMP HHN (08:59)
[2018-06-26] MEDS: SODIUM CHLORIDE 0.45% 500 ML BAG IV* (10:00)
[2018-06-26] MEDS: SOD CHLORIDE 0.45% 1,000 ML IV (11:55)
[2018-06-26] MEDS ORDERED: METOPROLOL 5 MG INJ IV (13:00)
[2018-06-26] MEDS: ATENOLOL 25 MG TAB PO ×2 (13:53→21:33)
[2018-06-26] MEDS: SOD CHLORIDE 0.9% 500 ML IV (13:54)
[2018-06-26 14:52] LABS: D-DIMER 1503.05 ng/ml (<460)
[2018-06-26] MEDS: INSULIN GLARGINE [LANTus] (100 UNITS/ML) SYG SC (21:49)
[2018-06-27] MEDS: SOD CHLORIDE 0.45% 1,000 ML IV (02:14)
[2018-06-27] MEDS: [UNRECOGNIZED DRUG - REMARK] XX ×3 (02:30→19:49)
[2018-06-27] MEDS ORDERED: HEPARIN 5,000 UNIT/0.5 ML VIAL ×3 (05:56→21:00)
[2018-06-27] MEDS: PANTOPRAZOLE (EC) 40 MG TAB PO (06:13)
[2018-06-27] MEDS: HEPARIN 5,000 UNIT/1 ML VIAL SC ×3 (06:19→21:27)
[2018-06-27 06:55] LABS: ADD MAN DIFF? NO
[2018-06-27 07:09] LABS: BASOPHILS % 0.2 % (0.0-2.0); EOSINOPHILS # 0.2 10^3/ul (0.0-0.5); EOSINOPHILS % 1.4 % (0.0-7.0); HEMATOCRIT 28.3 % (42.0-52.0); HEMOGLOBIN 9.3 g/dl (14.0-18.0); LYMPHOCYTES # 4.2 10^3/ul (0.8-2.9); LYMPHOCYTES % 30.1 % (15.0-51.0); MEAN CORPUSCULAR HEMOGLOBIN 27.9 pg (29.0-33.0); MEAN CORPUSCULAR HGB CONC 32.9 g/dl (32.0-37.0); MEAN PLATELET VOLUME 8.7 fl (7.4-10.4); MONOCYTE # 0.8 10^3/ul (0.3-0.9); MONOCYTES % 5.8 % (0.0-11.0); NEUTROPHIL # 8.5 10^3/ul (1.6-7.5); NEUTROPHILS % 60.8 % (39.0-77.0); PLATELET COUNT 337 10^3/UL (140-415); RED BLOOD COUNT 3.33 10^6/ul (4.70-6.10); RED CELL DISTRIBUTION WIDTH 16.3 % (11.5-14.5)
[2018-06-27 07:30] LABS: ANION GAP 5 (5-13); BLOOD UREA NITROGEN 46 mg/dl (7-20); CALCIUM 8.4 mg/dl (8.4-10.2); CARBON DIOXIDE 19 mmol/L (21-31); CHLORIDE 107 mmol/L (97-110); CREATININE 1.35 mg/dl (0.61-1.24); Estimated GFR 55 mL/min (>60); GLUCOSE 112 mg/dl (70-220); POTASSIUM 4.4 mmol/L (3.5-5.1); SODIUM 131 mmol/L (135-144)
[2018-06-27] MEDS: INSULIN ASPART [NOVOLOG] 3 ML PEN SC ×4 (08:00→21:28)
[2018-06-27] MEDS: CYCLOBENZAPRINE 10 MG TAB PO ×2 (08:09→21:05)
[2018-06-27] MEDS: RISPERIDONE 0.25 MG TAB PO ×2 (08:13→21:05)
[2018-06-27] MEDS: ATENOLOL 25 MG TAB PO ×2 (08:13→21:07)
[2018-06-27] MEDS: DOXYCYCLINE 100 MG TAB PO ×2 (08:13→21:05)
[2018-06-27] MEDS: BALSAM PERU/CASTOR OIL 60 GM TUBE TOP ×2 (08:14→21:05)
[2018-06-27] MEDS: METHADONE (1 MG/ML 5 ML PO UD SYG) PO (08:14)
[2018-06-27] MEDS: COLLAGENASE 5 GM (UD JAR) TOP (08:14)
[2018-06-27] MEDS: SOD CHLORIDE 0.9% 1,000 ML IV (14:11)
[2018-06-27] MEDS: SOD CHLORIDE 0.9% 500 ML IV (14:11)
[2018-06-27] MEDS: MIDODRINE 5 MG TAB NGT (15:01)
[2018-06-27] MEDS ORDERED: ALTEPLASE (CATHFLO) 2 MG INJ CATHETER (20:00)
[2018-06-27] MEDS: INSULIN GLARGINE [LANTus] (100 UNITS/ML) SYG SC (21:28)
[2018-06-28] MEDS: [UNRECOGNIZED DRUG - REMARK] XX ×3 (02:30→17:56)
[2018-06-28] MEDS: HYDROCODONE/APAP (5/325) TAB PO (03:07)
[2018-06-28] MEDS: BUPIVACAINE 0.5%/EPI (SDV) 30 ML INJ INJ (03:08)
[2018-06-28] MEDS: BETAMET NA PHOS/AC(6 MG/ML) 5ML INJ INJ (03:08)
[2018-06-28] MEDS ORDERED: HEPARIN 5,000 UNIT/0.5 ML VIAL ×3 (05:12→20:47)
[2018-06-28] MEDS: CYCLOBENZAPRINE 10 MG TAB PO ×2 (05:20→20:58)
[2018-06-28] MEDS: PANTOPRAZOLE (EC) 40 MG TAB PO (05:20)
[2018-06-28] MEDS: SOD CHLORIDE 0.9% 1,000 ML IV ×2 (05:20→17:56)
[2018-06-28] MEDS: HEPARIN 5,000 UNIT/1 ML VIAL SC ×3 (05:48→21:21)
[2018-06-28 07:43] LABS: ERYTHROCYTE SEDIMENTATION RATE 62 mm/Hr (0-20)
[2018-06-28] MEDS: INSULIN ASPART [NOVOLOG] 3 ML PEN SC ×4 (08:00→20:57)
[2018-06-28] MEDS: BALSAM PERU/CASTOR OIL 60 GM TUBE TOP ×2 (08:13→21:02)
[2018-06-28] MEDS: COLLAGENASE 5 GM (UD JAR) TOP (09:25)
[2018-06-28] MEDS: DOXYCYCLINE 100 MG TAB PO ×2 (09:26→20:58)
[2018-06-28] MEDS: METHADONE (1 MG/ML 5 ML PO UD SYG) PO (09:26)
[2018-06-28] MEDS: ATENOLOL 25 MG TAB PO ×2 (09:26→20:58)
[2018-06-28] MEDS: RISPERIDONE 0.25 MG TAB PO ×2 (09:26→20:57)
[2018-06-28] MEDS: LORAZEPAM 0.5 MG TAB PO (12:23)
[2018-06-28] MEDS: SOD CHLORIDE 0.9% 500 ML IV ×2 (12:29→20:52)
[2018-06-28] MEDS: INSULIN GLARGINE [LANTus] (100 UNITS/ML) SYG SC (21:22)
[2018-06-28 22:38] LABS: ADD MAN DIFF? NO
[2018-06-28 22:40] LABS: BASOPHILS % 0.3 % (0.0-2.0); EOSINOPHILS # 0.6 10^3/ul (0.0-0.5); HEMATOCRIT 25.5 % (42.0-52.0); HEMOGLOBIN 8.4 g/dl (14.0-18.0); LYMPHOCYTES # 4.6 10^3/ul (0.8-2.9); LYMPHOCYTES % 38.4 % (15.0-51.0); MEAN CORPUSCULAR HEMOGLOBIN 28.1 pg (29.0-33.0); MEAN CORPUSCULAR HGB CONC 32.9 g/dl (32.0-37.0); MEAN CORPUSCULAR VOLUME 85.3 fl (82.0-101.0); MEAN PLATELET VOLUME 8.6 fl (7.4-10.4); MONOCYTE # 0.9 10^3/ul (0.3-0.9); MONOCYTES % 7.6 % (0.0-11.0); NEUTROPHIL # 5.6 10^3/ul (1.6-7.5); NEUTROPHILS % 47.1 % (39.0-77.0); PLATELET COUNT 295 10^3/UL (140-415); RED BLOOD COUNT 2.99 10^6/ul (4.70-6.10); RED CELL DISTRIBUTION WIDTH 16.1 % (11.5-14.5)
[2018-06-28 22:40] LABS: WHITE BLOOD COUNT 11.9 10^3/ul (4.8-10.8)
[2018-06-28] MEDS: MIDODRINE 5 MG TAB NGT (22:40)
[2018-06-28 22:45] LABS: ADD UMIC YES; UR ASCORBIC ACID NEGATIVE (NEGATIVE); UR BACTERIA FEW /HPF (NONE SEEN); UR BILIRUBIN (Dip) NEGATIVE (NEGATIVE); UR BLOOD (Dip) NEGATIVE (NEGATIVE); UR BUDDING YEAST MODERATE /HPF (NONE SEEN); UR CLARITY CLEAR (CLEAR); UR COLOR STRAW (YELLOW); UR GLUCOSE (Dip) 3+ mg/dL (NEGATIVE); UR KETONES (Dip) NEGATIVE (NEGATIVE); UR LEUKOCYTE ESTERASE (Dip) NEGATIVE Leu/ul (NEGATIVE); UR NITRITE (Dip) NEGATIVE (NEGATIVE); UR RBC 3 /HPF (0-5); UR SPECIFIC GRAVITY (Dip) 1.007 (1.003-1.030); UR TOTAL PROTEIN (Dip) 2+ mg/dl (NEGATIVE); UR UROBILINOGEN (Dip) NEGATIVE (NEGATIVE); UR WBC 5 /HPF (0-5)
[2018-06-29] MEDS: SOD CHLORIDE 0.9% 1,000 ML IV ×3 (01:00→22:37)
[2018-06-29] MEDS: [UNRECOGNIZED DRUG - REMARK] XX ×3 (02:30→18:08)
[2018-06-29] MEDS ORDERED: HEPARIN 5,000 UNIT/0.5 ML VIAL ×3 (05:03→22:35)
[2018-06-29] MEDS: PANTOPRAZOLE (EC) 40 MG TAB PO (05:19)
[2018-06-29] MEDS: HYDROCODONE/APAP (5/325) TAB PO ×2 (05:19→18:08)
[2018-06-29] MEDS: HEPARIN 5,000 UNIT/1 ML VIAL SC ×3 (05:32→22:44)
[2018-06-29 05:52] LABS: ANION GAP 2 (5-13); BLOOD UREA NITROGEN 47 mg/dl (7-20); CALCIUM 7.6 mg/dl (8.4-10.2); CARBON DIOXIDE 23 mmol/L (21-31); CHLORIDE 109 mmol/L (97-110); CREATININE 1.32 mg/dl (0.61-1.24); Estimated GFR 57 mL/min (>60); GLUCOSE 74 mg/dl (70-220); POTASSIUM 4.1 mmol/L (3.5-5.1); SODIUM 134 mmol/L (135-144)
[2018-06-29] MEDS: INSULIN ASPART [NOVOLOG] 3 ML PEN SC ×4 (08:00→21:00)
[2018-06-29] MEDS: RISPERIDONE 0.25 MG TAB PO ×2 (08:12→20:03)
[2018-06-29] MEDS: CYCLOBENZAPRINE 10 MG TAB PO ×2 (08:12→20:03)
[2018-06-29] MEDS: METHADONE (1 MG/ML 5 ML PO UD SYG) PO (08:12)
[2018-06-29] MEDS: BALSAM PERU/CASTOR OIL 60 GM TUBE TOP ×2 (08:12→21:03)
[2018-06-29] MEDS: COLLAGENASE 5 GM (UD JAR) TOP (08:12)
[2018-06-29] MEDS: DOXYCYCLINE 100 MG TAB PO ×2 (08:12→20:03)
[2018-06-29] MEDS: ATENOLOL 25 MG TAB PO ×2 (08:13→20:14)
[2018-06-29] MEDS: ALBUMIN HUMAN 25% 100 ML IV (15:36)
[2018-06-29] MEDS: SOD CHLORIDE 0.9% 500 ML IV (15:36)
[2018-06-29] MEDS: INSULIN GLARGINE [LANTus] (100 UNITS/ML) SYG SC (20:59)
[2018-06-29] MEDS: LORAZEPAM 0.5 MG TAB PO (22:39)
[2018-06-29] MEDS: ALBUTEROL/IPRATROPIUM (NEB) 3 ML AMP HHN (22:58)
[2018-06-30] MEDS: [UNRECOGNIZED DRUG - REMARK] XX ×3 (02:30→10:57)
[2018-06-30] MEDS ORDERED: HEPARIN 5,000 UNIT/0.5 ML VIAL ×3 (05:21→21:21)
[2018-06-30] MEDS: PANTOPRAZOLE (EC) 40 MG TAB PO (05:52)
[2018-06-30] MEDS: HEPARIN 5,000 UNIT/1 ML VIAL SC ×3 (05:59→21:46)
[2018-06-30] MEDS: INSULIN ASPART [NOVOLOG] 3 ML PEN SC ×4 (08:00→21:00)
[2018-06-30] MEDS: CYCLOBENZAPRINE 10 MG TAB PO ×2 (08:45→21:35)
[2018-06-30] MEDS: RISPERIDONE 0.25 MG TAB PO ×2 (08:45→21:35)
[2018-06-30] MEDS: DOXYCYCLINE 100 MG TAB PO ×2 (08:45→21:35)
[2018-06-30] MEDS: METHADONE (1 MG/ML 5 ML PO UD SYG) PO (08:46)
[2018-06-30] MEDS: BALSAM PERU/CASTOR OIL 60 GM TUBE TOP ×2 (08:46→21:49)
[2018-06-30] MEDS: COLLAGENASE 5 GM (UD JAR) TOP (08:46)
[2018-06-30] MEDS: ATENOLOL 25 MG TAB PO (08:46)
[2018-06-30] MEDS: ALBUTEROL/IPRATROPIUM (NEB) 3 ML AMP HHN (09:18)
[2018-06-30] MEDS: SOD CHLORIDE 0.9% 500 ML IV (12:48)
[2018-06-30] MEDS: SOD CHLORIDE 0.9% 1,000 ML IV (12:48)
[2018-06-30] MEDS: LORAZEPAM 0.5 MG TAB PO (13:14)
[2018-06-30] MEDS: HYDROCODONE/APAP (5/325) TAB PO (13:58)
[2018-06-30] MEDS: INSULIN GLARGINE [LANTus] (100 UNITS/ML) SYG SC (21:47)
[2018-07-01] MEDS: ALBUTEROL/IPRATROPIUM (NEB) 3 ML AMP HHN (00:26)
[2018-07-01] MEDS: [UNRECOGNIZED DRUG - REMARK] XX ×3 (02:30→19:36)
[2018-07-01] MEDS ORDERED: HEPARIN 5,000 UNIT/0.5 ML VIAL ×3 (06:09→20:05)
[2018-07-01] MEDS: SOD CHLORIDE 0.9% 1,000 ML IV ×2 (06:13→17:06)
[2018-07-01] MEDS: PANTOPRAZOLE (EC) 40 MG TAB PO (06:13)
[2018-07-01 06:16] LABS: ADD MAN DIFF? NO
[2018-07-01 06:28] LABS: WHITE BLOOD COUNT 10.1 10^3/ul (4.8-10.8)
[2018-07-01 06:28] LABS: BASOPHILS % 0.3 % (0.0-2.0); EOSINOPHILS # 0.7 10^3/ul (0.0-0.5); EOSINOPHILS % 6.6 % (0.0-7.0); HEMATOCRIT 26.6 % (42.0-52.0); LYMPHOCYTES % 30.2 % (15.0-51.0); MEAN CORPUSCULAR HEMOGLOBIN 28.8 pg (29.0-33.0); MEAN CORPUSCULAR HGB CONC 33.8 g/dl (32.0-37.0); MEAN CORPUSCULAR VOLUME 85.3 fl (82.0-101.0); MEAN PLATELET VOLUME 8.6 fl (7.4-10.4); MONOCYTE # 0.6 10^3/ul (0.3-0.9); MONOCYTES % 6.2 % (0.0-11.0); NEUTROPHIL # 5.6 10^3/ul (1.6-7.5); NEUTROPHILS % 55.6 % (39.0-77.0); PLATELET COUNT 298 10^3/UL (140-415); RED BLOOD COUNT 3.12 10^6/ul (4.70-6.10); RED CELL DISTRIBUTION WIDTH 16.1 % (11.5-14.5)
[2018-07-01] MEDS: HEPARIN 5,000 UNIT/1 ML VIAL SC ×3 (06:42→20:16)
[2018-07-01 07:05] LABS: ANION GAP 3 (5-13); BLOOD UREA NITROGEN 38 mg/dl (7-20); CALCIUM 7.3 mg/dl (8.4-10.2); CARBON DIOXIDE 26 mmol/L (21-31); CHLORIDE 106 mmol/L (97-110); CREATININE 1.35 mg/dl (0.61-1.24); Estimated GFR 55 mL/min (>60); GLUCOSE 103 mg/dl (70-220); POTASSIUM 4.1 mmol/L (3.5-5.1); SODIUM 135 mmol/L (135-144)
[2018-07-01] MEDS: INSULIN ASPART [NOVOLOG] 3 ML PEN SC ×4 (07:53→20:14)
[2018-07-01] MEDS: DOXYCYCLINE 100 MG TAB PO ×2 (08:33→20:14)
[2018-07-01] MEDS: CYCLOBENZAPRINE 10 MG TAB PO ×2 (08:33→20:15)
[2018-07-01] MEDS: MIDODRINE 5 MG TAB PO ×3 (08:34→17:04)
[2018-07-01] MEDS: RISPERIDONE 0.25 MG TAB PO ×2 (08:34→20:14)
[2018-07-01] MEDS: METHADONE (1 MG/ML 5 ML PO UD SYG) PO (08:35)
[2018-07-01] MEDS: BALSAM PERU/CASTOR OIL 60 GM TUBE TOP (09:00)
[2018-07-01] MEDS: COLLAGENASE 5 GM (UD JAR) TOP (09:00)
[2018-07-01] MEDS: LORAZEPAM 0.5 MG TAB PO (20:14)
[2018-07-01] MEDS: INSULIN GLARGINE [LANTus] (100 UNITS/ML) SYG SC (20:17)
[2018-07-02] MEDS: [UNRECOGNIZED DRUG - REMARK] XX (01:10)
[2018-07-02] MEDS ORDERED: HEPARIN 5,000 UNIT/0.5 ML VIAL ×4 (05:49→21:20)
[2018-07-02 06:00] LABS: ADD MAN DIFF? NO
[2018-07-02 06:04] LABS: BASOPHILS % 0.4 % (0.0-2.0); EOSINOPHILS # 0.9 10^3/ul (0.0-0.5); HEMATOCRIT 29.4 % (42.0-52.0); HEMOGLOBIN 9.7 g/dl (14.0-18.0); LYMPHOCYTES % 37.8 % (15.0-51.0); MEAN CORPUSCULAR HEMOGLOBIN 28.1 pg (29.0-33.0); MEAN CORPUSCULAR VOLUME 85.2 fl (82.0-101.0); MEAN PLATELET VOLUME 8.6 fl (7.4-10.4); MONOCYTE # 0.7 10^3/ul (0.3-0.9); MONOCYTES % 6.7 % (0.0-11.0); NEUTROPHIL # 4.8 10^3/ul (1.6-7.5); NEUTROPHILS % 45.1 % (39.0-77.0); PLATELET COUNT 325 10^3/UL (140-415); RED BLOOD COUNT 3.45 10^6/ul (4.70-6.10); RED CELL DISTRIBUTION WIDTH 15.8 % (11.5-14.5)
[2018-07-02 06:04] LABS: WHITE BLOOD COUNT 10.5 10^3/ul (4.8-10.8)
[2018-07-02 06:26] LABS: ANION GAP 4 (5-13); BLOOD UREA NITROGEN 43 mg/dl (7-20); CARBON DIOXIDE 24 mmol/L (21-31); CHLORIDE 108 mmol/L (97-110); CREATININE 1.52 mg/dl (0.61-1.24); Estimated GFR 48 mL/min (>60); GLUCOSE 65 mg/dl (70-220); POTASSIUM 4.3 mmol/L (3.5-5.1); SODIUM 136 mmol/L (135-144)
[2018-07-02] MEDS: PANTOPRAZOLE (EC) 40 MG TAB PO (06:42)
[2018-07-02] MEDS: SOD CHLORIDE 0.9% 1,000 ML IV ×2 (06:42→23:12)
[2018-07-02] MEDS: HEPARIN 5,000 UNIT/1 ML VIAL SC ×3 (06:49→21:52)
[2018-07-02] MEDS: INSULIN ASPART [NOVOLOG] 3 ML PEN SC ×4 (08:00→21:53)
[2018-07-02] MEDS: RISPERIDONE 0.25 MG TAB PO ×2 (08:26→21:06)
[2018-07-02] MEDS: DOXYCYCLINE 100 MG TAB PO ×2 (08:26→21:06)
[2018-07-02] MEDS: METHADONE (1 MG/ML 5 ML PO UD SYG) PO (08:27)
[2018-07-02] MEDS: CYCLOBENZAPRINE 10 MG TAB PO ×2 (08:27→21:06)
[2018-07-02] MEDS: MIDODRINE 5 MG TAB PO ×3 (08:27→17:07)
[2018-07-02] MEDS: ALBUTEROL/IPRATROPIUM (NEB) 3 ML AMP HHN ×2 (09:22→21:54)
[2018-07-02] MEDS: COLLAGENASE 5 GM (UD JAR) TOP (09:49)
[2018-07-02] MEDS: SOD CHLORIDE 0.9% 500 ML IV (17:02)
[2018-07-02] MEDS: NA PHOSPHATE/BIPHOS 133 ML ENEMA PR (17:08)
[2018-07-02] MEDS: LORAZEPAM 0.5 MG TAB PO (21:23)
[2018-07-02] MEDS: INSULIN GLARGINE [LANTus] (100 UNITS/ML) SYG SC (21:52)
[2018-07-03] MEDS ORDERED: HEPARIN 5,000 UNIT/0.5 ML VIAL ×3 (05:32→20:13)
[2018-07-03] MEDS: PANTOPRAZOLE (EC) 40 MG TAB PO (05:53)
[2018-07-03] MEDS: HEPARIN 5,000 UNIT/1 ML VIAL SC ×3 (06:11→21:28)
[2018-07-03 06:29] LABS: ADD MAN DIFF? NO
[2018-07-03 06:35] LABS: BASOPHIL # 0.1 10^3/ul (0.0-0.1); BASOPHILS % 0.4 % (0.0-2.0); EOSINOPHILS # 0.8 10^3/ul (0.0-0.5); HEMATOCRIT 29.1 % (42.0-52.0); HEMOGLOBIN 9.6 g/dl (14.0-18.0); LYMPHOCYTES # 3.8 10^3/ul (0.8-2.9); LYMPHOCYTES % 32.1 % (15.0-51.0); MEAN CORPUSCULAR HEMOGLOBIN 28.2 pg (29.0-33.0); MEAN CORPUSCULAR VOLUME 85.6 fl (82.0-101.0); MEAN PLATELET VOLUME 8.7 fl (7.4-10.4); MONOCYTE # 0.7 10^3/ul (0.3-0.9); MONOCYTES % 6.1 % (0.0-11.0); NEUTROPHIL # 6.3 10^3/ul (1.6-7.5); NEUTROPHILS % 53.5 % (39.0-77.0); PLATELET COUNT 313 10^3/UL (140-415); RED CELL DISTRIBUTION WIDTH 15.7 % (11.5-14.5)
[2018-07-03 06:35] LABS: WHITE BLOOD COUNT 11.7 10^3/ul (4.8-10.8)
[2018-07-03 06:53] LABS: ANION GAP 4 (5-13); BLOOD UREA NITROGEN 45 mg/dl (7-20); CALCIUM 7.6 mg/dl (8.4-10.2); CARBON DIOXIDE 23 mmol/L (21-31); CHLORIDE 107 mmol/L (97-110); CREATININE 1.49 mg/dl (0.61-1.24); Estimated GFR 49 mL/min (>60); GLUCOSE 107 mg/dl (70-220); SODIUM 134 mmol/L (135-144)
[2018-07-03 06:54] LABS: POTASSIUM 4.1 mmol/L (3.5-5.1)
[2018-07-03] MEDS: [UNRECOGNIZED DRUG - REMARK] XX ×5 (07:47→16:28)
[2018-07-03] MEDS: INSULIN ASPART [NOVOLOG] 3 ML PEN SC ×4 (08:00→21:28)
[2018-07-03] MEDS: DOXYCYCLINE 100 MG TAB PO ×2 (08:34→21:01)
[2018-07-03] MEDS: CYCLOBENZAPRINE 10 MG TAB PO ×2 (08:34→21:00)
[2018-07-03] MEDS: RISPERIDONE 0.25 MG TAB PO ×2 (08:34→21:01)
[2018-07-03] MEDS: METHADONE (1 MG/ML 5 ML PO UD SYG) PO (08:35)
[2018-07-03] MEDS: COLLAGENASE 5 GM (UD JAR) TOP (08:42)
[2018-07-03] MEDS: MIDODRINE 5 MG TAB PO ×3 (08:44→16:27)
[2018-07-03] MEDS: SOD CHLORIDE 0.9% 1,000 ML IV (13:31)
[2018-07-03] MEDS: LORAZEPAM 0.5 MG TAB PO (21:01)
[2018-07-03] MEDS: INSULIN GLARGINE [LANTus] (100 UNITS/ML) SYG SC (21:28)
[2018-07-04] MEDS: MIDODRINE 5 MG TAB NGT (00:57)
[2018-07-04] MEDS: SOD CHLORIDE 0.9% 1,000 ML IV ×4 (01:57→20:57)
[2018-07-04] MEDS: [UNRECOGNIZED DRUG - REMARK] XX ×3 (02:30→18:20)
[2018-07-04] MEDS: SOD CHLORIDE 0.9% 500 ML IV (05:23)
[2018-07-04] MEDS ORDERED: HEPARIN 5,000 UNIT/0.5 ML VIAL ×3 (05:45→20:17)
[2018-07-04] MEDS: PANTOPRAZOLE (EC) 40 MG TAB PO (05:51)
[2018-07-04] MEDS: HEPARIN 5,000 UNIT/1 ML VIAL SC ×3 (06:18→21:00)
[2018-07-04] MEDS: INSULIN ASPART [NOVOLOG] 3 ML PEN SC ×4 (08:00→21:00)
[2018-07-04] MEDS: COLLAGENASE 5 GM (UD JAR) TOP (09:28)
[2018-07-04] MEDS: RISPERIDONE 0.25 MG TAB PO ×2 (09:29→20:57)
[2018-07-04] MEDS: MIDODRINE 5 MG TAB PO ×3 (09:29→17:00)
[2018-07-04] MEDS: CYCLOBENZAPRINE 10 MG TAB PO ×2 (09:29→20:58)
[2018-07-04] MEDS: METHADONE (1 MG/ML 5 ML PO UD SYG) PO (09:29)
[2018-07-04] MEDS: DOXYCYCLINE 100 MG TAB PO ×2 (14:44→20:57)
[2018-07-04] MEDS ORDERED: hydrALAzine 20 MG INJ IV (19:00)
[2018-07-04] MEDS: INSULIN GLARGINE [LANTus] (100 UNITS/ML) SYG SC (21:01)
[2018-07-05] MEDS: [UNRECOGNIZED DRUG - REMARK] XX ×3 (02:30→16:59)
[2018-07-05] MEDS ORDERED: HEPARIN 5,000 UNIT/0.5 ML VIAL ×3 (05:29→21:08)
[2018-07-05] MEDS: PANTOPRAZOLE (EC) 40 MG TAB PO (06:05)
[2018-07-05] MEDS: HEPARIN 5,000 UNIT/1 ML VIAL SC ×3 (06:15→21:20)
[2018-07-05 07:44] LABS: ANION GAP 3 (5-13); BLOOD UREA NITROGEN 41 mg/dl (7-20); CALCIUM 7.8 mg/dl (8.4-10.2); CARBON DIOXIDE 24 mmol/L (21-31); CHLORIDE 110 mmol/L (97-110); CREATININE 1.46 mg/dl (0.61-1.24); Estimated GFR 51 mL/min (>60); GLUCOSE 83 mg/dl (70-220); SODIUM 137 mmol/L (135-144)
[2018-07-05] MEDS: INSULIN ASPART [NOVOLOG] 3 ML PEN SC ×4 (08:00→21:20)
[2018-07-05] MEDS: METHADONE (1 MG/ML 5 ML PO UD SYG) PO (08:46)
[2018-07-05] MEDS: DOXYCYCLINE 100 MG TAB PO ×2 (08:46→21:24)
[2018-07-05] MEDS: CYCLOBENZAPRINE 10 MG TAB PO ×2 (08:47→21:24)
[2018-07-05] MEDS: RISPERIDONE 0.25 MG TAB PO (08:47)
[2018-07-05] MEDS: MIDODRINE 5 MG TAB PO ×3 (08:47→16:59)
[2018-07-05] MEDS: COLLAGENASE 5 GM (UD JAR) TOP (08:47)
[2018-07-05] MEDS: GUAIFENESIN LA 600 MG TABSR PO ×2 (18:05→23:50)
[2018-07-05] MEDS: INSULIN GLARGINE [LANTus] (100 UNITS/ML) SYG SC (21:20)
[2018-07-05] MEDS: SOD CHLORIDE 0.9% 1,000 ML IV (21:24)
[2018-07-05] MEDS: LORAZEPAM 0.5 MG TAB PO (21:24)
[2018-07-05] MEDS: ALBUTEROL/IPRATROPIUM (NEB) 3 ML AMP HHN (21:25)
[2018-07-06] MEDS: [UNRECOGNIZED DRUG - REMARK] XX ×3 (02:30→09:57)
[2018-07-06] MEDS ORDERED: HEPARIN 5,000 UNIT/0.5 ML VIAL ×3 (05:52→19:49)
[2018-07-06] MEDS: PANTOPRAZOLE (EC) 40 MG TAB PO (06:03)
[2018-07-06] MEDS: GUAIFENESIN LA 600 MG TABSR PO ×3 (06:03→17:31)
[2018-07-06] MEDS: HEPARIN 5,000 UNIT/1 ML VIAL SC ×3 (06:04→20:43)
[2018-07-06 06:56] LABS: ANION GAP 4 (5-13); BLOOD UREA NITROGEN 41 mg/dl (7-20); CALCIUM 7.5 mg/dl (8.4-10.2); CARBON DIOXIDE 22 mmol/L (21-31); CHLORIDE 108 mmol/L (97-110); CREATININE 1.64 mg/dl (0.61-1.24); Estimated GFR 44 mL/min (>60); GLUCOSE 108 mg/dl (70-220); SODIUM 134 mmol/L (135-144)
[2018-07-06] MEDS: INSULIN ASPART [NOVOLOG] 3 ML PEN SC ×4 (08:00→20:36)
[2018-07-06] MEDS: DOXYCYCLINE 100 MG TAB PO ×2 (09:31→20:37)
[2018-07-06] MEDS: CYCLOBENZAPRINE 10 MG TAB PO ×2 (09:31→20:37)
[2018-07-06] MEDS: METHADONE (1 MG/ML 5 ML PO UD SYG) PO ×2 (09:32→09:37)
[2018-07-06] MEDS: MIDODRINE 5 MG TAB PO ×3 (09:34→17:00)
[2018-07-06] MEDS: SOD CHLORIDE 0.9% 1,000 ML IV (12:21)
[2018-07-06] MEDS: INSULIN GLARGINE [LANTus] (100 UNITS/ML) SYG SC (20:43)
[2018-07-07] MEDS: GUAIFENESIN LA 600 MG TABSR PO ×4 (00:15→17:31)
[2018-07-07] MEDS: [UNRECOGNIZED DRUG - REMARK] XX ×3 (02:30→17:32)
[2018-07-07] MEDS: SOD CHLORIDE 0.9% 1,000 ML IV ×2 (02:38→17:32)
[2018-07-07] MEDS ORDERED: HEPARIN 5,000 UNIT/0.5 ML VIAL ×3 (05:06→22:17)
[2018-07-07] MEDS: ALBUTEROL/IPRATROPIUM (NEB) 3 ML AMP HHN (05:26)
[2018-07-07] MEDS: PANTOPRAZOLE (EC) 40 MG TAB PO (05:35)
[2018-07-07] MEDS: HEPARIN 5,000 UNIT/1 ML VIAL SC ×3 (05:40→21:37)
[2018-07-07 06:19] LABS: ANION GAP 4 (5-13); Estimated GFR 43 mL/min (>60)
[2018-07-07 06:27] LABS: BLOOD UREA NITROGEN 38 mg/dl (7-20); CARBON DIOXIDE 22 mmol/L (21-31); CHLORIDE 108 mmol/L (97-110); CREATININE 1.67 mg/dl (0.61-1.24); GLUCOSE 90 mg/dl (70-220); POTASSIUM 3.8 mmol/L (3.5-5.1); SODIUM 134 mmol/L (135-144)
[2018-07-07] MEDS: INSULIN ASPART [NOVOLOG] 3 ML PEN SC ×4 (07:47→21:37)
[2018-07-07] MEDS: METHADONE (1 MG/ML 5 ML PO UD SYG) PO (08:30)
[2018-07-07] MEDS: CYCLOBENZAPRINE 10 MG TAB PO ×2 (08:30→21:27)
[2018-07-07] MEDS: DOXYCYCLINE 100 MG TAB PO ×2 (08:30→21:27)
[2018-07-07] MEDS: MIDODRINE 5 MG TAB PO ×3 (08:40→17:32)
[2018-07-07] MEDS: CEPASTAT LOZENGE MT (10:01)
[2018-07-07] MEDS: COLLAGENASE 5 GM (UD JAR) TOP (10:01)
[2018-07-07] MEDS: [UNRECOGNIZED DRUG - REMARK] XX ×2 (11:00→18:37)
[2018-07-07] MEDS: INSULIN GLARGINE [LANTus] (100 UNITS/ML) SYG SC (21:36)
[2018-07-08] MEDS: GUAIFENESIN LA 600 MG TABSR PO ×4 (00:12→17:25)
[2018-07-08] MEDS: CEPASTAT LOZENGE MT (00:12)
[2018-07-08] MEDS: [UNRECOGNIZED DRUG - REMARK] XX (02:30)
[2018-07-08] MEDS: [UNRECOGNIZED DRUG - REMARK] XX ×2 (03:00→11:00)
[2018-07-08] MEDS ORDERED: HEPARIN 5,000 UNIT/0.5 ML VIAL ×3 (05:25→20:50)
[2018-07-08] MEDS: PANTOPRAZOLE (EC) 40 MG TAB PO (05:33)
[2018-07-08] MEDS: HEPARIN 5,000 UNIT/1 ML VIAL SC ×3 (05:41→21:17)
[2018-07-08 07:01] LABS: ANION GAP 4 (5-13); BLOOD UREA NITROGEN 37 mg/dl (7-20); CALCIUM 7.8 mg/dl (8.4-10.2); CARBON DIOXIDE 23 mmol/L (21-31); CHLORIDE 109 mmol/L (97-110); Estimated GFR 45 mL/min (>60); GLUCOSE 112 mg/dl (70-220); POTASSIUM 3.9 mmol/L (3.5-5.1); SODIUM 136 mmol/L (135-144)
[2018-07-08] MEDS: SOD CHLORIDE 0.9% 1,000 ML IV ×3 (07:50→22:12)
[2018-07-08] MEDS: INSULIN ASPART [NOVOLOG] 3 ML PEN SC ×4 (07:50→21:00)
[2018-07-08] MEDS: METHADONE (1 MG/ML 5 ML PO UD SYG) PO (08:51)
[2018-07-08] MEDS: CYCLOBENZAPRINE 10 MG TAB PO ×2 (08:52→21:00)
[2018-07-08] MEDS: MIDODRINE 5 MG TAB PO ×6 (08:52→17:25)
[2018-07-08] MEDS: COLLAGENASE 5 GM (UD JAR) TOP (11:02)
[2018-07-08] MEDS: DOXYCYCLINE 100 MG TAB PO ×2 (12:27→21:00)
[2018-07-08] MEDS: INSULIN GLARGINE [LANTus] (100 UNITS/ML) SYG SC (21:18)
[2018-07-09] MEDS: GUAIFENESIN LA 600 MG TABSR PO ×4 (00:10→18:04)
[2018-07-09] MEDS: CEPASTAT LOZENGE MT (04:29)
[2018-07-09] MEDS ORDERED: HEPARIN 5,000 UNIT/0.5 ML VIAL ×4 (06:02→22:10)
[2018-07-09 06:05] LABS: ADD MAN DIFF? NO
[2018-07-09] MEDS: HEPARIN 5,000 UNIT/1 ML VIAL SC ×3 (06:09→22:16)
[2018-07-09 06:11] LABS: WHITE BLOOD COUNT 11.5 10^3/ul (4.8-10.8)
[2018-07-09 06:11] LABS: BASOPHIL # 0.1 10^3/ul (0.0-0.1); BASOPHILS % 0.4 % (0.0-2.0); EOSINOPHILS # 0.9 10^3/ul (0.0-0.5); EOSINOPHILS % 8.2 % (0.0-7.0); HEMATOCRIT 29.6 % (42.0-52.0); HEMOGLOBIN 9.9 g/dl (14.0-18.0); LYMPHOCYTES # 3.5 10^3/ul (0.8-2.9); LYMPHOCYTES % 30.4 % (15.0-51.0); MEAN CORPUSCULAR HEMOGLOBIN 28.4 pg (29.0-33.0); MEAN CORPUSCULAR HGB CONC 33.4 g/dl (32.0-37.0); MEAN CORPUSCULAR VOLUME 84.8 fl (82.0-101.0); MEAN PLATELET VOLUME 8.8 fl (7.4-10.4); MONOCYTE # 0.8 10^3/ul (0.3-0.9); MONOCYTES % 7.1 % (0.0-11.0); NEUTROPHIL # 6.1 10^3/ul (1.6-7.5); PLATELET COUNT 329 10^3/UL (140-415); RED BLOOD COUNT 3.49 10^6/ul (4.70-6.10); RED CELL DISTRIBUTION WIDTH 15.3 % (11.5-14.5)
[2018-07-09 06:50] LABS: ANION GAP 5 (5-13); BLOOD UREA NITROGEN 36 mg/dl (7-20); CALCIUM 8.2 mg/dl (8.4-10.2); CARBON DIOXIDE 22 mmol/L (21-31); CHLORIDE 105 mmol/L (97-110); CREATININE 1.63 mg/dl (0.61-1.24); Estimated GFR 44 mL/min (>60); GLUCOSE 80 mg/dl (70-220); POTASSIUM 3.8 mmol/L (3.5-5.1); SODIUM 132 mmol/L (135-144)
[2018-07-09] MEDS: PANTOPRAZOLE (EC) 40 MG TAB PO (06:58)
[2018-07-09] MEDS: INSULIN ASPART [NOVOLOG] 3 ML PEN SC ×4 (08:00→20:34)
[2018-07-09] MEDS: CYCLOBENZAPRINE 10 MG TAB PO ×2 (09:06→20:27)
[2018-07-09] MEDS: METHADONE (1 MG/ML 5 ML PO UD SYG) PO (09:06)
[2018-07-09] MEDS: MIDODRINE 5 MG TAB PO ×3 (09:06→16:31)
[2018-07-09] MEDS: DOXYCYCLINE 100 MG TAB PO ×2 (09:07→20:26)
[2018-07-09] MEDS: COLLAGENASE 5 GM (UD JAR) TOP (09:07)
[2018-07-09] MEDS: SOD CHLORIDE 0.9% 1,000 ML IV (11:24)
[2018-07-09] MEDS: DIGOXIN 500 MCG INJ IV (13:18)
[2018-07-09] MEDS: INSULIN GLARGINE [LANTus] (100 UNITS/ML) SYG SC (20:31)
[2018-07-10] MEDS: GUAIFENESIN LA 600 MG TABSR PO ×4 (01:24→17:02)
[2018-07-10] MEDS: SOD CHLORIDE 0.9% 1,000 ML IV ×2 (01:25→14:22)
[2018-07-10] MEDS ORDERED: HEPARIN 5,000 UNIT/0.5 ML VIAL ×3 (05:34→21:44)
[2018-07-10] MEDS: PANTOPRAZOLE (EC) 40 MG TAB PO (05:39)
[2018-07-10] MEDS: HEPARIN 5,000 UNIT/1 ML VIAL SC ×3 (05:44→22:13)
[2018-07-10] MEDS: ALBUTEROL/IPRATROPIUM (NEB) 3 ML AMP HHN (06:13)
[2018-07-10] MEDS: INSULIN ASPART [NOVOLOG] 3 ML PEN SC ×4 (07:58→21:00)
[2018-07-10] MEDS: COLLAGENASE 5 GM (UD JAR) TOP (09:00)
[2018-07-10] MEDS: METHADONE (1 MG/ML 5 ML PO UD SYG) PO (09:43)
[2018-07-10] MEDS: DOXYCYCLINE 100 MG TAB PO ×2 (09:44→22:01)
[2018-07-10] MEDS: CYCLOBENZAPRINE 10 MG TAB PO ×2 (09:44→22:01)
[2018-07-10] MEDS: MIDODRINE 5 MG TAB PO ×3 (09:45→17:02)
[2018-07-10 19:37] LABS: ADD MAN DIFF? NO
[2018-07-10 19:39] LABS: WHITE BLOOD COUNT 10.6 10^3/ul (4.8-10.8)
[2018-07-10 19:39] LABS: BASOPHILS % 0.4 % (0.0-2.0); EOSINOPHILS # 0.9 10^3/ul (0.0-0.5); EOSINOPHILS % 8.2 % (0.0-7.0); HEMATOCRIT 28.9 % (42.0-52.0); HEMOGLOBIN 9.5 g/dl (14.0-18.0); LYMPHOCYTES # 2.8 10^3/ul (0.8-2.9); LYMPHOCYTES % 26.5 % (15.0-51.0); MEAN CORPUSCULAR HEMOGLOBIN 28.3 pg (29.0-33.0); MEAN CORPUSCULAR HGB CONC 32.9 g/dl (32.0-37.0); MEAN PLATELET VOLUME 8.3 fl (7.4-10.4); MONOCYTE # 0.7 10^3/ul (0.3-0.9); MONOCYTES % 6.8 % (0.0-11.0); NEUTROPHIL # 6.1 10^3/ul (1.6-7.5); NEUTROPHILS % 57.1 % (39.0-77.0); PLATELET COUNT 285 10^3/UL (140-415); RED BLOOD COUNT 3.36 10^6/ul (4.70-6.10); RED CELL DISTRIBUTION WIDTH 15.3 % (11.5-14.5)
[2018-07-10 20:00] LABS: ANION GAP 4 (5-13); BLOOD UREA NITROGEN 31 mg/dl (7-20); CALCIUM 7.8 mg/dl (8.4-10.2); CARBON DIOXIDE 21 mmol/L (21-31); CHLORIDE 107 mmol/L (97-110); CREATININE 1.62 mg/dl (0.61-1.24); Estimated GFR 45 mL/min (>60); GLUCOSE 190 mg/dl (70-220); POTASSIUM 4.1 mmol/L (3.5-5.1); SODIUM 132 mmol/L (135-144)
[2018-07-10] MEDS: INSULIN GLARGINE [LANTus] (100 UNITS/ML) SYG SC (20:00)
[2018-07-11] MEDS: GUAIFENESIN LA 600 MG TABSR PO ×4 (00:45→17:13)
[2018-07-11 05:54] LABS: ADD MAN DIFF? NO
[2018-07-11 06:01] LABS: WHITE BLOOD COUNT 10.7 10^3/ul (4.8-10.8)
[2018-07-11 06:01] LABS: BASOPHILS % 0.4 % (0.0-2.0); EOSINOPHILS # 0.9 10^3/ul (0.0-0.5); EOSINOPHILS % 8.2 % (0.0-7.0); HEMATOCRIT 31.1 % (42.0-52.0); HEMOGLOBIN 10.4 g/dl (14.0-18.0); LYMPHOCYTES # 3.6 10^3/ul (0.8-2.9); LYMPHOCYTES % 33.3 % (15.0-51.0); MEAN CORPUSCULAR HEMOGLOBIN 28.7 pg (29.0-33.0); MEAN CORPUSCULAR HGB CONC 33.4 g/dl (32.0-37.0); MEAN CORPUSCULAR VOLUME 85.7 fl (82.0-101.0); MEAN PLATELET VOLUME 8.3 fl (7.4-10.4); MONOCYTE # 0.7 10^3/ul (0.3-0.9); MONOCYTES % 6.6 % (0.0-11.0); NEUTROPHIL # 5.4 10^3/ul (1.6-7.5); NEUTROPHILS % 50.8 % (39.0-77.0); PLATELET COUNT 315 10^3/UL (140-415); RED BLOOD COUNT 3.63 10^6/ul (4.70-6.10); RED CELL DISTRIBUTION WIDTH 15.1 % (11.5-14.5)
[2018-07-11] MEDS ORDERED: HEPARIN 5,000 UNIT/0.5 ML VIAL ×3 (06:20→22:01)
[2018-07-11] MEDS: PANTOPRAZOLE (EC) 40 MG TAB PO (06:28)
[2018-07-11] MEDS: HEPARIN 5,000 UNIT/1 ML VIAL SC ×3 (06:33→22:18)
[2018-07-11] MEDS: SOD CHLORIDE 0.9% 1,000 ML IV ×2 (06:35→16:50)
[2018-07-11 06:43] LABS: ANION GAP 4 (5-13); BLOOD UREA NITROGEN 30 mg/dl (7-20); CALCIUM 8.2 mg/dl (8.4-10.2); CARBON DIOXIDE 22 mmol/L (21-31); CHLORIDE 110 mmol/L (97-110); CREATININE 1.56 mg/dl (0.61-1.24); Estimated GFR 47 mL/min (>60); GLUCOSE 89 mg/dl (70-220); POTASSIUM 3.9 mmol/L (3.5-5.1); SODIUM 136 mmol/L (135-144)
[2018-07-11] MEDS: INSULIN ASPART [NOVOLOG] 3 ML PEN SC ×4 (07:54→22:00)
[2018-07-11] MEDS: COLLAGENASE 5 GM (UD JAR) TOP (09:00)
[2018-07-11] MEDS: MIDODRINE 5 MG TAB PO ×3 (09:00→16:44)
[2018-07-11] MEDS: ALBUTEROL/IPRATROPIUM (NEB) 3 ML AMP HHN (09:08)
[2018-07-11] MEDS: DOXYCYCLINE 100 MG TAB PO ×2 (09:45→22:10)
[2018-07-11] MEDS: CYCLOBENZAPRINE 10 MG TAB PO ×2 (09:45→22:10)
[2018-07-11] MEDS: METHADONE (1 MG/ML 5 ML PO UD SYG) PO (09:45)
[2018-07-11] MEDS: PROPRANOLOL 10 MG TAB PO (22:10)
[2018-07-11] MEDS: INSULIN GLARGINE [LANTus] (100 UNITS/ML) SYG SC (22:18)
[2018-07-11] MEDS: LORAZEPAM 0.5 MG TAB PO (22:25)
[2018-07-12] MEDS: GUAIFENESIN LA 600 MG TABSR PO ×4 (01:30→17:45)
[2018-07-12] MEDS ORDERED: HEPARIN 5,000 UNIT/0.5 ML VIAL ×3 (05:33→20:25)
[2018-07-12] MEDS: PANTOPRAZOLE (EC) 40 MG TAB PO (05:38)
[2018-07-12] MEDS: HEPARIN 5,000 UNIT/1 ML VIAL SC ×3 (05:43→21:21)
[2018-07-12] MEDS: INSULIN ASPART [NOVOLOG] 3 ML PEN SC ×4 (07:45→21:00)
[2018-07-12] MEDS: DOXYCYCLINE 100 MG TAB PO ×2 (08:46→21:13)
[2018-07-12] MEDS: PROPRANOLOL 10 MG TAB PO ×2 (08:46→21:14)
[2018-07-12] MEDS: MIDODRINE 5 MG TAB PO ×3 (08:46→17:45)
[2018-07-12] MEDS: COLLAGENASE 5 GM (UD JAR) TOP (08:46)
[2018-07-12] MEDS: METHADONE (1 MG/ML 5 ML PO UD SYG) PO (08:47)
[2018-07-12] MEDS: CYCLOBENZAPRINE 10 MG TAB PO ×2 (08:47→21:14)
[2018-07-12] MEDS: SOD CHLORIDE 0.9% 1,000 ML IV ×2 (12:24→21:41)
[2018-07-12 14:54] LABS: ANION GAP 2 (5-13); BLOOD UREA NITROGEN 35 mg/dl (7-20); CALCIUM 7.5 mg/dl (8.4-10.2); CARBON DIOXIDE 22 mmol/L (21-31); CHLORIDE 108 mmol/L (97-110); CREATININE 1.51 mg/dl (0.61-1.24); Estimated GFR 49 mL/min (>60); GLUCOSE 113 mg/dl (70-220); POTASSIUM 3.7 mmol/L (3.5-5.1); SODIUM 132 mmol/L (135-144)
[2018-07-12] MEDS: INSULIN GLARGINE [LANTus] (100 UNITS/ML) SYG SC (21:22)
[2018-07-13] MEDS: GUAIFENESIN LA 600 MG TABSR PO ×4 (00:29→17:36)
[2018-07-13] MEDS: LORAZEPAM 0.5 MG TAB PO ×2 (02:35→21:41)
[2018-07-13] MEDS ORDERED: HEPARIN 5,000 UNIT/0.5 ML VIAL ×3 (05:19→20:38)
[2018-07-13] MEDS: PANTOPRAZOLE (EC) 40 MG TAB PO (05:27)
[2018-07-13] MEDS: HEPARIN 5,000 UNIT/1 ML VIAL SC ×3 (05:31→21:29)
[2018-07-13 06:06] LABS: ADD MAN DIFF? NO
[2018-07-13] MEDS: INSULIN ASPART [NOVOLOG] 3 ML PEN SC ×4 (07:20→23:00)
[2018-07-13] MEDS: CYCLOBENZAPRINE 10 MG TAB PO ×2 (07:43→20:47)
[2018-07-13] MEDS: DOXYCYCLINE 100 MG TAB PO ×2 (07:43→20:47)
[2018-07-13] MEDS: DOCUSATE SODIUM 100 MG CAP PO (07:43)
[2018-07-13] MEDS: COLLAGENASE 5 GM (UD JAR) TOP (07:43)
[2018-07-13] MEDS: MIDODRINE 5 MG TAB PO ×3 (07:43→17:36)
[2018-07-13] MEDS: PROPRANOLOL 10 MG TAB PO ×2 (07:43→20:47)
[2018-07-13] MEDS: METHADONE (1 MG/ML 5 ML PO UD SYG) PO (07:44)
[2018-07-13 08:34] LABS: BASOPHIL # 0.1 10^3/ul (0.0-0.1); BASOPHILS % 0.5 % (0.0-2.0); EOSINOPHILS # 0.8 10^3/ul (0.0-0.5); EOSINOPHILS % 7.6 % (0.0-7.0); HEMATOCRIT 29.3 % (42.0-52.0); HEMOGLOBIN 9.8 g/dl (14.0-18.0); LYMPHOCYTES # 3.8 10^3/ul (0.8-2.9); LYMPHOCYTES % 35.8 % (15.0-51.0); MEAN CORPUSCULAR HEMOGLOBIN 28.6 pg (29.0-33.0); MEAN CORPUSCULAR HGB CONC 33.4 g/dl (32.0-37.0); MEAN CORPUSCULAR VOLUME 85.4 fl (82.0-101.0); MEAN PLATELET VOLUME 8.5 fl (7.4-10.4); MONOCYTE # 0.7 10^3/ul (0.3-0.9); MONOCYTES % 6.8 % (0.0-11.0); NEUTROPHIL # 5.1 10^3/ul (1.6-7.5); NEUTROPHILS % 48.1 % (39.0-77.0); PLATELET COUNT 301 10^3/UL (140-415); RED BLOOD COUNT 3.43 10^6/ul (4.70-6.10); RED CELL DISTRIBUTION WIDTH 15.1 % (11.5-14.5)
[2018-07-13 08:34] LABS: WHITE BLOOD COUNT 10.6 10^3/ul (4.8-10.8)
[2018-07-13] MEDS: SOD CHLORIDE 0.9% 1,000 ML IV (16:36)
[2018-07-13] MEDS: INSULIN GLARGINE [LANTus] (100 UNITS/ML) SYG SC (20:52)
[2018-07-14] MEDS: GUAIFENESIN LA 600 MG TABSR PO ×5 (00:27→22:53)
[2018-07-14] MEDS: SOD CHLORIDE 0.9% 1,000 ML IV ×2 (00:27→20:18)
[2018-07-14] MEDS ORDERED: HEPARIN 5,000 UNIT/0.5 ML VIAL ×2 (06:11→14:34)
[2018-07-14] MEDS: PANTOPRAZOLE (EC) 40 MG TAB PO (06:36)
[2018-07-14] MEDS: HEPARIN 5,000 UNIT/1 ML VIAL SC ×3 (06:42→20:21)
[2018-07-14] MEDS: INSULIN ASPART [NOVOLOG] 3 ML PEN SC ×4 (08:00→20:18)
[2018-07-14] MEDS: PROPRANOLOL 10 MG TAB PO ×2 (08:36→20:17)
[2018-07-14] MEDS: COLLAGENASE 5 GM (UD JAR) TOP (08:36)
[2018-07-14] MEDS: CYCLOBENZAPRINE 10 MG TAB PO ×2 (08:37→20:18)
[2018-07-14] MEDS: DOXYCYCLINE 100 MG TAB PO ×2 (08:37→20:18)
[2018-07-14] MEDS: METHADONE (1 MG/ML 5 ML PO UD SYG) PO (08:38)
[2018-07-14] MEDS: MIDODRINE 5 MG TAB PO ×3 (08:41→17:00)
[2018-07-14] MEDS: INSULIN GLARGINE [LANTus] (100 UNITS/ML) SYG SC (20:21)
[2018-07-14 20:45] LABS: ANION GAP 3 (5-13); BLOOD UREA NITROGEN 36 mg/dl (7-20); CALCIUM 7.8 mg/dl (8.4-10.2); CARBON DIOXIDE 23 mmol/L (21-31); CHLORIDE 107 mmol/L (97-110); CREATININE 1.75 mg/dl (0.61-1.24); Estimated GFR 41 mL/min (>60); GLUCOSE 149 mg/dl (70-220); SODIUM 133 mmol/L (135-144)
[2018-07-14] MEDS: LORAZEPAM 0.5 MG TAB PO (22:52)
[2018-07-15] MEDS: GUAIFENESIN LA 600 MG TABSR PO ×4 (05:47→23:15)
[2018-07-15] MEDS: PANTOPRAZOLE (EC) 40 MG TAB PO (05:47)
[2018-07-15] MEDS: HEPARIN 5,000 UNIT/1 ML VIAL SC ×3 (05:48→21:25)
[2018-07-15 06:40] LABS: ADD MAN DIFF? NO
[2018-07-15 06:45] LABS: BASOPHILS % 0.4 % (0.0-2.0); EOSINOPHILS # 0.8 10^3/ul (0.0-0.5); EOSINOPHILS % 7.3 % (0.0-7.0); HEMATOCRIT 27.2 % (42.0-52.0); HEMOGLOBIN 9.1 g/dl (14.0-18.0); LYMPHOCYTES # 3.7 10^3/ul (0.8-2.9); LYMPHOCYTES % 32.3 % (15.0-51.0); MEAN CORPUSCULAR HEMOGLOBIN 28.4 pg (29.0-33.0); MEAN CORPUSCULAR HGB CONC 33.5 g/dl (32.0-37.0); MEAN PLATELET VOLUME 8.9 fl (7.4-10.4); MONOCYTE # 0.8 10^3/ul (0.3-0.9); MONOCYTES % 7.3 % (0.0-11.0); NEUTROPHIL # 5.9 10^3/ul (1.6-7.5); NEUTROPHILS % 51.6 % (39.0-77.0); PLATELET COUNT 290 10^3/UL (140-415)
[2018-07-15 06:45] LABS: WHITE BLOOD COUNT 11.3 10^3/ul (4.8-10.8)
[2018-07-15 07:25] LABS: ANION GAP 5 (5-13); BLOOD UREA NITROGEN 35 mg/dl (7-20); CARBON DIOXIDE 22 mmol/L (21-31); CHLORIDE 105 mmol/L (97-110); CREATININE 1.66 mg/dl (0.61-1.24); Estimated GFR 44 mL/min (>60); GLUCOSE 90 mg/dl (70-220); POTASSIUM 3.6 mmol/L (3.5-5.1); SODIUM 132 mmol/L (135-144)
[2018-07-15] MEDS: INSULIN ASPART [NOVOLOG] 3 ML PEN SC ×4 (08:00→21:24)
[2018-07-15] MEDS: PROPRANOLOL 10 MG TAB PO ×2 (10:53→21:22)
[2018-07-15] MEDS: DOXYCYCLINE 100 MG TAB PO ×2 (10:53→21:22)
[2018-07-15] MEDS: MIDODRINE 5 MG TAB PO ×3 (10:53→17:15)
[2018-07-15] MEDS: CYCLOBENZAPRINE 10 MG TAB PO ×2 (10:53→21:22)
[2018-07-15] MEDS: SOD CHLORIDE 0.9% 1,000 ML IV (12:41)
[2018-07-15] MEDS: METHADONE (1 MG/ML 5 ML PO UD SYG) PO (14:23)
[2018-07-15] MEDS: COLLAGENASE 5 GM (UD JAR) TOP (16:55)
[2018-07-15] MEDS: INSULIN GLARGINE [LANTus] (100 UNITS/ML) SYG SC (20:18)
[2018-07-16] MEDS: SOD CHLORIDE 0.9% 1,000 ML IV ×3 (01:53→20:33)
[2018-07-16] MEDS: LORAZEPAM 0.5 MG TAB PO ×2 (04:27→21:50)
[2018-07-16] MEDS: PANTOPRAZOLE (EC) 40 MG TAB PO (05:45)
[2018-07-16] MEDS: GUAIFENESIN LA 600 MG TABSR PO ×3 (05:45→20:34)
[2018-07-16] MEDS: HEPARIN 5,000 UNIT/1 ML VIAL SC ×3 (05:48→21:51)
[2018-07-16 06:53] LABS: ADD MAN DIFF? NO
[2018-07-16 07:05] LABS: WHITE BLOOD COUNT 12.8 10^3/ul (4.8-10.8)
[2018-07-16 07:05] LABS: BASOPHILS % 0.2 % (0.0-2.0); EOSINOPHILS # 0.8 10^3/ul (0.0-0.5); EOSINOPHILS % 6.4 % (0.0-7.0); HEMATOCRIT 27.2 % (42.0-52.0); HEMOGLOBIN 9.1 g/dl (14.0-18.0); LYMPHOCYTES # 2.8 10^3/ul (0.8-2.9); LYMPHOCYTES % 22.1 % (15.0-51.0); MEAN CORPUSCULAR HEMOGLOBIN 28.2 pg (29.0-33.0); MEAN CORPUSCULAR HGB CONC 33.5 g/dl (32.0-37.0); MEAN CORPUSCULAR VOLUME 84.2 fl (82.0-101.0); MEAN PLATELET VOLUME 9.3 fl (7.4-10.4); MONOCYTE # 0.9 10^3/ul (0.3-0.9); NEUTROPHILS % 62.9 % (39.0-77.0); PLATELET COUNT 290 10^3/UL (140-415); RED BLOOD COUNT 3.23 10^6/ul (4.70-6.10); RED CELL DISTRIBUTION WIDTH 15.1 % (11.5-14.5)
[2018-07-16 07:35] LABS: ANION GAP 5 (5-13); BLOOD UREA NITROGEN 38 mg/dl (7-20); CALCIUM 7.8 mg/dl (8.4-10.2); CARBON DIOXIDE 22 mmol/L (21-31); CHLORIDE 107 mmol/L (97-110); CREATININE 1.71 mg/dl (0.61-1.24); Estimated GFR 42 mL/min (>60); GLUCOSE 125 mg/dl (70-220); POTASSIUM 3.7 mmol/L (3.5-5.1); SODIUM 134 mmol/L (135-144)
[2018-07-16] MEDS: INSULIN ASPART [NOVOLOG] 3 ML PEN SC ×4 (08:00→21:00)
[2018-07-16] MEDS: COLLAGENASE 5 GM (UD JAR) TOP (08:56)
[2018-07-16] MEDS: DOXYCYCLINE 100 MG TAB PO ×2 (08:56→20:34)
[2018-07-16] MEDS: CYCLOBENZAPRINE 10 MG TAB PO ×2 (08:57→21:50)
[2018-07-16] MEDS: PROPRANOLOL 10 MG TAB PO ×2 (08:57→20:35)
[2018-07-16] MEDS: METHADONE (1 MG/ML 5 ML PO UD SYG) PO (09:07)
[2018-07-16] MEDS: MIDODRINE 5 MG TAB PO ×3 (09:09→20:35)
[2018-07-16] MEDS: INSULIN GLARGINE [LANTus] (100 UNITS/ML) SYG SC (20:39)
[2018-07-17] MEDS: GUAIFENESIN LA 600 MG TABSR PO ×5 (00:10→23:53)
[2018-07-17] MEDS: PANTOPRAZOLE (EC) 40 MG TAB PO (05:27)
[2018-07-17] MEDS: HEPARIN 5,000 UNIT/1 ML VIAL SC ×3 (05:41→21:55)
[2018-07-17] MEDS: SOD CHLORIDE 0.9% 1,000 ML IV ×3 (05:52→22:45)
[2018-07-17] MEDS: INSULIN ASPART [NOVOLOG] 3 ML PEN SC ×4 (08:00→20:54)
[2018-07-17 08:56] LABS: ADD MAN DIFF? NO
[2018-07-17] MEDS: PROPRANOLOL 10 MG TAB PO ×2 (09:00→20:54)
[2018-07-17] MEDS: MIDODRINE 5 MG TAB PO ×3 (09:00→18:47)
[2018-07-17 09:01] LABS: WHITE BLOOD COUNT 10.8 10^3/ul (4.8-10.8)
[2018-07-17 09:01] LABS: BASOPHIL # 0.1 10^3/ul (0.0-0.1); BASOPHILS % 0.6 % (0.0-2.0); EOSINOPHILS # 0.9 10^3/ul (0.0-0.5); EOSINOPHILS % 8.5 % (0.0-7.0); HEMOGLOBIN 9.6 g/dl (14.0-18.0); LYMPHOCYTES % 36.7 % (15.0-51.0); MEAN CORPUSCULAR HEMOGLOBIN 27.9 pg (29.0-33.0); MEAN CORPUSCULAR HGB CONC 33.1 g/dl (32.0-37.0); MEAN CORPUSCULAR VOLUME 84.3 fl (82.0-101.0); MEAN PLATELET VOLUME 8.6 fl (7.4-10.4); MONOCYTE # 0.8 10^3/ul (0.3-0.9); MONOCYTES % 7.5 % (0.0-11.0); NEUTROPHIL # 4.9 10^3/ul (1.6-7.5); NEUTROPHILS % 45.5 % (39.0-77.0); PLATELET COUNT 270 10^3/UL (140-415); RED BLOOD COUNT 3.44 10^6/ul (4.70-6.10)
[2018-07-17 09:26] LABS: ANION GAP 4 (5-13); BLOOD UREA NITROGEN 35 mg/dl (7-20); CALCIUM 8.1 mg/dl (8.4-10.2); CARBON DIOXIDE 22 mmol/L (21-31); CHLORIDE 110 mmol/L (97-110); CREATININE 1.52 mg/dl (0.61-1.24); Estimated GFR 48 mL/min (>60); GLUCOSE 73 mg/dl (70-220); POTASSIUM 3.8 mmol/L (3.5-5.1); SODIUM 136 mmol/L (135-144)
[2018-07-17] MEDS: DOXYCYCLINE 100 MG TAB PO ×2 (09:55→20:48)
[2018-07-17] MEDS: METHADONE (1 MG/ML 5 ML PO UD SYG) PO (09:56)
[2018-07-17] MEDS: COLLAGENASE 5 GM (UD JAR) TOP (09:56)
[2018-07-17] MEDS: CYCLOBENZAPRINE 10 MG TAB PO ×2 (09:58→20:52)
[2018-07-17] MEDS: INSULIN GLARGINE [LANTus] (100 UNITS/ML) SYG SC (20:53)
[2018-07-18] MEDS: PANTOPRAZOLE (EC) 40 MG TAB PO (05:07)
[2018-07-18] MEDS: HEPARIN 5,000 UNIT/1 ML VIAL SC ×3 (05:08→21:00)
[2018-07-18] MEDS: GUAIFENESIN LA 600 MG TABSR PO ×4 (05:08→23:13)
[2018-07-18 06:54] LABS: ADD MAN DIFF? NO
[2018-07-18 07:03] LABS: BASOPHIL # 0.1 10^3/ul (0.0-0.1); BASOPHILS % 0.5 % (0.0-2.0); EOSINOPHILS # 0.7 10^3/ul (0.0-0.5); EOSINOPHILS % 6.5 % (0.0-7.0); HEMATOCRIT 27.4 % (42.0-52.0); HEMOGLOBIN 9.1 g/dl (14.0-18.0); LYMPHOCYTES # 2.4 10^3/ul (0.8-2.9); LYMPHOCYTES % 22.9 % (15.0-51.0); MEAN CORPUSCULAR HEMOGLOBIN 28.2 pg (29.0-33.0); MEAN CORPUSCULAR HGB CONC 33.2 g/dl (32.0-37.0); MEAN CORPUSCULAR VOLUME 84.8 fl (82.0-101.0); MEAN PLATELET VOLUME 9.1 fl (7.4-10.4); MONOCYTE # 0.5 10^3/ul (0.3-0.9); MONOCYTES % 4.9 % (0.0-11.0); NEUTROPHIL # 6.8 10^3/ul (1.6-7.5); NEUTROPHILS % 63.9 % (39.0-77.0); PLATELET COUNT 310 10^3/UL (140-415); RED BLOOD COUNT 3.23 10^6/ul (4.70-6.10); RED CELL DISTRIBUTION WIDTH 15.1 % (11.5-14.5)
[2018-07-18 07:03] LABS: WHITE BLOOD COUNT 10.7 10^3/ul (4.8-10.8)
[2018-07-18 07:28] LABS: ANION GAP 5 (5-13); BLOOD UREA NITROGEN 37 mg/dl (7-20); CALCIUM 7.7 mg/dl (8.4-10.2); CARBON DIOXIDE 20 mmol/L (21-31); CHLORIDE 109 mmol/L (97-110); CREATININE 1.51 mg/dl (0.61-1.24); Estimated GFR 49 mL/min (>60); GLUCOSE 174 mg/dl (70-220); SODIUM 134 mmol/L (135-144)
[2018-07-18] MEDS: INSULIN ASPART [NOVOLOG] 3 ML PEN SC ×4 (08:00→20:22)
[2018-07-18] MEDS: MIDODRINE 5 MG TAB PO ×3 (08:06→17:46)
[2018-07-18] MEDS: CYCLOBENZAPRINE 10 MG TAB PO ×2 (08:12→20:54)
[2018-07-18] MEDS: DOXYCYCLINE 100 MG TAB PO ×2 (08:14→20:20)
[2018-07-18] MEDS: COLLAGENASE 5 GM (UD JAR) TOP (08:14)
[2018-07-18] MEDS: METHADONE (1 MG/ML 5 ML PO UD SYG) PO (08:14)
[2018-07-18] MEDS: PROPRANOLOL 10 MG TAB PO ×2 (08:14→20:20)
[2018-07-18] MEDS: ALBUTEROL/IPRATROPIUM (NEB) 3 ML AMP HHN (16:39)
[2018-07-18] MEDS: LORAZEPAM 0.5 MG TAB PO (18:58)
[2018-07-18] MEDS: SOD CHLORIDE 0.9% 1,000 ML IV (18:58)
[2018-07-18] MEDS: INSULIN GLARGINE [LANTus] (100 UNITS/ML) SYG SC (20:22)
[2018-07-18] MEDS: METOPROLOL 25 MG TAB PO (22:09)
[2018-07-19] MEDS: GUAIFENESIN LA 600 MG TABSR PO ×4 (05:45→23:55)
[2018-07-19] MEDS: PANTOPRAZOLE (EC) 40 MG TAB PO (05:45)
[2018-07-19] MEDS: HEPARIN 5,000 UNIT/1 ML VIAL SC ×3 (05:49→21:17)
[2018-07-19] MEDS: INSULIN ASPART [NOVOLOG] 3 ML PEN SC ×4 (07:55→20:49)
[2018-07-19] MEDS: COLLAGENASE 5 GM (UD JAR) TOP (09:00)
[2018-07-19] MEDS: MIDODRINE 5 MG TAB PO ×3 (09:00→16:26)
[2018-07-19] MEDS: METHADONE (1 MG/ML 5 ML PO UD SYG) PO (09:00)
[2018-07-19] MEDS: PROPRANOLOL 10 MG TAB PO ×2 (09:00→20:17)
[2018-07-19] MEDS: DOXYCYCLINE 100 MG TAB PO ×2 (09:00→20:16)
[2018-07-19] MEDS: CYCLOBENZAPRINE 10 MG TAB PO ×2 (09:23→20:16)
[2018-07-19] MEDS: SOD CHLORIDE 0.9% 500 ML IV (10:04)
[2018-07-19] MEDS: SODIUM HYPOCHLORITE (1/40) 1 APPLIC BTL IRR (12:27)
[2018-07-19] MEDS: INSULIN GLARGINE [LANTus] (100 UNITS/ML) SYG SC (20:48)
[2018-07-20] MEDS: ALBUTEROL/IPRATROPIUM (NEB) 3 ML AMP HHN (01:47)
[2018-07-20] MEDS: GUAIFENESIN LA 600 MG TABSR PO ×3 (05:48→17:33)
[2018-07-20] MEDS: PANTOPRAZOLE (EC) 40 MG TAB PO (05:48)
[2018-07-20] MEDS: SOD CHLORIDE 0.9% 1,000 ML IV (06:00)
[2018-07-20] MEDS: HEPARIN 5,000 UNIT/1 ML VIAL SC ×3 (06:17→20:14)
[2018-07-20] MEDS: INSULIN ASPART [NOVOLOG] 3 ML PEN SC ×4 (07:55→19:53)
[2018-07-20] MEDS: COLLAGENASE 5 GM (UD JAR) TOP (08:52)
[2018-07-20] MEDS: CYCLOBENZAPRINE 10 MG TAB PO ×2 (08:53→19:55)
[2018-07-20] MEDS: MIDODRINE 5 MG TAB PO ×3 (08:53→17:33)
[2018-07-20] MEDS: PROPRANOLOL 10 MG TAB PO ×2 (08:53→19:55)
[2018-07-20] MEDS: DOXYCYCLINE 100 MG TAB PO ×2 (08:54→19:55)
[2018-07-20] MEDS: METHADONE (1 MG/ML 5 ML PO UD SYG) PO (08:57)
[2018-07-20] MEDS: SODIUM HYPOCHLORITE (1/40) 1 APPLIC BTL IRR (09:03)
[2018-07-20] MEDS: INSULIN GLARGINE [LANTus] (100 UNITS/ML) SYG SC (19:59)
[2018-07-21] MEDS: GUAIFENESIN LA 600 MG TABSR PO ×5 (00:36→23:58)
[2018-07-21] MEDS: SOD CHLORIDE 0.9% 1,000 ML IV ×2 (03:27→22:09)
[2018-07-21] MEDS: PANTOPRAZOLE (EC) 40 MG TAB PO (04:56)
[2018-07-21] MEDS: HEPARIN 5,000 UNIT/1 ML VIAL SC ×3 (05:07→22:14)
[2018-07-21] MEDS: INSULIN ASPART [NOVOLOG] 3 ML PEN SC ×4 (07:55→21:00)
[2018-07-21] MEDS: DOXYCYCLINE 100 MG TAB PO ×2 (09:16→21:28)
[2018-07-21] MEDS: COLLAGENASE 5 GM (UD JAR) TOP (09:16)
[2018-07-21] MEDS: CYCLOBENZAPRINE 10 MG TAB PO ×2 (09:16→21:28)
[2018-07-21] MEDS: METHADONE (1 MG/ML 5 ML PO UD SYG) PO (09:17)
[2018-07-21] MEDS: SODIUM HYPOCHLORITE (1/40) 1 APPLIC BTL IRR (09:17)
[2018-07-21] MEDS: PROPRANOLOL 10 MG TAB PO ×2 (09:17→21:29)
[2018-07-21] MEDS: MIDODRINE 5 MG TAB PO ×3 (10:33→17:00)
[2018-07-21 14:53] LABS: ADD MAN DIFF? NO
[2018-07-21 14:55] LABS: BASOPHILS % 0.3 % (0.0-2.0); EOSINOPHILS # 0.9 10^3/ul (0.0-0.5); EOSINOPHILS % 7.1 % (0.0-7.0); HEMATOCRIT 27.5 % (42.0-52.0); HEMOGLOBIN 9.3 g/dl (14.0-18.0); LYMPHOCYTES # 3.8 10^3/ul (0.8-2.9); LYMPHOCYTES % 30.9 % (15.0-51.0); MEAN CORPUSCULAR HEMOGLOBIN 28.5 pg (29.0-33.0); MEAN CORPUSCULAR HGB CONC 33.8 g/dl (32.0-37.0); MEAN CORPUSCULAR VOLUME 84.4 fl (82.0-101.0); MEAN PLATELET VOLUME 8.5 fl (7.4-10.4); MONOCYTE # 0.8 10^3/ul (0.3-0.9); MONOCYTES % 6.9 % (0.0-11.0); NEUTROPHIL # 6.5 10^3/ul (1.6-7.5); PLATELET COUNT 297 10^3/UL (140-415); RED BLOOD COUNT 3.26 10^6/ul (4.70-6.10); RED CELL DISTRIBUTION WIDTH 14.8 % (11.5-14.5)
[2018-07-21 14:55] LABS: WHITE BLOOD COUNT 12.1 10^3/ul (4.8-10.8)
[2018-07-21 15:15] LABS: ANION GAP 2 (5-13); BLOOD UREA NITROGEN 38 mg/dl (7-20); CALCIUM 7.8 mg/dl (8.4-10.2); CARBON DIOXIDE 23 mmol/L (21-31); CHLORIDE 109 mmol/L (97-110); CREATININE 1.54 mg/dl (0.61-1.24); Estimated GFR 47 mL/min (>60); GLUCOSE 121 mg/dl (70-220); POTASSIUM 3.9 mmol/L (3.5-5.1); SODIUM 134 mmol/L (135-144)
[2018-07-21 16:06] LABS: ERYTHROCYTE SEDIMENTATION RATE 80 mm/Hr (0-20)
[2018-07-21] MEDS: ALBUTEROL/IPRATROPIUM (NEB) 3 ML AMP HHN (20:16)
[2018-07-21] MEDS: INSULIN GLARGINE [LANTus] (100 UNITS/ML) SYG SC (21:31)
[2018-07-22] MEDS: PANTOPRAZOLE (EC) 40 MG TAB PO (06:35)
[2018-07-22] MEDS: GUAIFENESIN LA 600 MG TABSR PO ×3 (06:35→17:26)
[2018-07-22] MEDS: HEPARIN 5,000 UNIT/1 ML VIAL SC ×3 (06:37→21:30)
[2018-07-22 07:05] LABS: ADD MAN DIFF? NO
[2018-07-22 07:11] LABS: BASOPHIL # 0.1 10^3/ul (0.0-0.1); BASOPHILS % 0.5 % (0.0-2.0); EOSINOPHILS # 0.8 10^3/ul (0.0-0.5); EOSINOPHILS % 6.7 % (0.0-7.0); LYMPHOCYTES # 3.9 10^3/ul (0.8-2.9); LYMPHOCYTES % 34.9 % (15.0-51.0); MEAN CORPUSCULAR HEMOGLOBIN 27.9 pg (29.0-33.0); MEAN CORPUSCULAR HGB CONC 33.3 g/dl (32.0-37.0); MEAN CORPUSCULAR VOLUME 83.8 fl (82.0-101.0); MEAN PLATELET VOLUME 8.3 fl (7.4-10.4); MONOCYTE # 0.9 10^3/ul (0.3-0.9); MONOCYTES % 7.6 % (0.0-11.0); NEUTROPHIL # 5.5 10^3/ul (1.6-7.5); NEUTROPHILS % 49.4 % (39.0-77.0); PLATELET COUNT 291 10^3/UL (140-415); RED BLOOD COUNT 3.58 10^6/ul (4.70-6.10); RED CELL DISTRIBUTION WIDTH 14.8 % (11.5-14.5)
[2018-07-22 07:11] LABS: WHITE BLOOD COUNT 11.2 10^3/ul (4.8-10.8)
[2018-07-22 07:53] LABS: ANION GAP 5 (5-13); BLOOD UREA NITROGEN 37 mg/dl (7-20); CALCIUM 8.5 mg/dl (8.4-10.2); CARBON DIOXIDE 23 mmol/L (21-31); CHLORIDE 108 mmol/L (97-110); CREATININE 1.52 mg/dl (0.61-1.24); Estimated GFR 48 mL/min (>60); GLUCOSE 63 mg/dl (70-220); POTASSIUM 3.7 mmol/L (3.5-5.1); SODIUM 136 mmol/L (135-144)
[2018-07-22] MEDS: INSULIN ASPART [NOVOLOG] 3 ML PEN SC ×4 (07:55→21:23)
[2018-07-22] MEDS: CYCLOBENZAPRINE 10 MG TAB PO ×2 (08:42→21:14)
[2018-07-22] MEDS: DOXYCYCLINE 100 MG TAB PO ×2 (08:42→21:14)
[2018-07-22] MEDS: METHADONE (1 MG/ML 5 ML PO UD SYG) PO (08:43)
[2018-07-22] MEDS: SODIUM HYPOCHLORITE (1/40) 1 APPLIC BTL IRR (08:43)
[2018-07-22] MEDS: COLLAGENASE 5 GM (UD JAR) TOP (08:43)
[2018-07-22] MEDS: PROPRANOLOL 10 MG TAB PO ×2 (08:43→21:15)
[2018-07-22] MEDS: MIDODRINE 5 MG TAB PO ×3 (09:46→17:26)
[2018-07-22] MEDS: SOD CHLORIDE 0.9% 1,000 ML IV (12:17)
[2018-07-22] MEDS ORDERED: GENTAMICIN IV PER PHARMACY XX (18:30)
[2018-07-22] MEDS: CEFEPIME 1GM/50 ML (PMX) 50 ML IVPB (19:18)
[2018-07-22] MEDS: GENTAMICIN 440 MG in SOD CHLORIDE 0.9% 100 ML IVPB (21:14)
[2018-07-22] MEDS: INSULIN GLARGINE [LANTus] (100 UNITS/ML) SYG SC (21:26)
[2018-07-22] MEDS: LORAZEPAM 0.5 MG TAB PO (21:48)
[2018-07-23] MEDS: GUAIFENESIN LA 600 MG TABSR PO ×4 (02:34→17:34)
[2018-07-23] MEDS: PANTOPRAZOLE (EC) 40 MG TAB PO (06:00)
[2018-07-23] MEDS: HEPARIN 5,000 UNIT/1 ML VIAL SC ×3 (06:14→21:43)
[2018-07-23 06:49] LABS: BLOOD UREA NITROGEN 39 mg/dl (7-20)
[2018-07-23 07:10] LABS: GENTAMICIN,RANDOM 13.7 ug/ml
[2018-07-23] MEDS: INSULIN ASPART [NOVOLOG] 3 ML PEN SC ×4 (07:53→21:00)
[2018-07-23] MEDS: PROPRANOLOL 10 MG TAB PO ×2 (09:00→21:20)
[2018-07-23] MEDS: COLLAGENASE 5 GM (UD JAR) TOP (09:13)
[2018-07-23] MEDS: CYCLOBENZAPRINE 10 MG TAB PO ×2 (09:13→21:19)
[2018-07-23] MEDS: DOXYCYCLINE 100 MG TAB PO ×2 (09:13→21:19)
[2018-07-23] MEDS: MIDODRINE 5 MG TAB PO ×3 (09:19→17:34)
[2018-07-23] MEDS: SODIUM HYPOCHLORITE (1/40) 1 APPLIC BTL IRR (09:19)
[2018-07-23] MEDS: CEFEPIME 1GM/50 ML (PMX) 50 ML IVPB ×2 (09:21→21:18)
[2018-07-23] MEDS: METHADONE (1 MG/ML 5 ML PO UD SYG) PO (10:50)
[2018-07-23] MEDS: SOD CHLORIDE 0.9% 1,000 ML IV (14:00)
[2018-07-23] MEDS: ALBUMIN HUMAN 25% 100 ML IV (15:00)
[2018-07-23] MEDS: SOD CHLORIDE 0.9% 500 ML IV (15:47)
[2018-07-23] MEDS: INSULIN GLARGINE [LANTus] (100 UNITS/ML) SYG SC (21:44)
[2018-07-24] MEDS: GUAIFENESIN LA 600 MG TABSR PO ×4 (00:58→17:16)
[2018-07-24] MEDS: PANTOPRAZOLE (EC) 40 MG TAB PO (05:39)
[2018-07-24] MEDS: HEPARIN 5,000 UNIT/1 ML VIAL SC ×3 (05:46→22:14)
[2018-07-24] MEDS: SOD CHLORIDE 0.9% 1,000 ML IV ×2 (06:08→18:57)
[2018-07-24 06:51] LABS: ADD MAN DIFF? NO
[2018-07-24 07:04] LABS: WHITE BLOOD COUNT 11.2 10^3/ul (4.8-10.8)
[2018-07-24 07:04] LABS: BASOPHIL # 0.1 10^3/ul (0.0-0.1); BASOPHILS % 0.7 % (0.0-2.0); EOSINOPHILS # 0.8 10^3/ul (0.0-0.5); HEMATOCRIT 25.6 % (42.0-52.0); HEMOGLOBIN 8.6 g/dl (14.0-18.0); LYMPHOCYTES # 4.3 10^3/ul (0.8-2.9); LYMPHOCYTES % 38.2 % (15.0-51.0); MEAN CORPUSCULAR HEMOGLOBIN 27.9 pg (29.0-33.0); MEAN CORPUSCULAR HGB CONC 33.6 g/dl (32.0-37.0); MEAN CORPUSCULAR VOLUME 83.1 fl (82.0-101.0); MEAN PLATELET VOLUME 8.9 fl (7.4-10.4); MONOCYTES % 8.6 % (0.0-11.0); NEUTROPHILS % 44.8 % (39.0-77.0); PLATELET COUNT 313 10^3/UL (140-415); RED BLOOD COUNT 3.08 10^6/ul (4.70-6.10); RED CELL DISTRIBUTION WIDTH 14.7 % (11.5-14.5)
[2018-07-24 07:20] LABS: ANION GAP 8 (5-13); BLOOD UREA NITROGEN 37 mg/dl (7-20); CALCIUM 8.6 mg/dl (8.4-10.2); CARBON DIOXIDE 22 mmol/L (21-31); CHLORIDE 109 mmol/L (97-110); CREATININE 1.62 mg/dl (0.61-1.24); Estimated GFR 45 mL/min (>60); GLUCOSE 67 mg/dl (70-220); POTASSIUM 3.7 mmol/L (3.5-5.1); SODIUM 139 mmol/L (135-144)
[2018-07-24] MEDS: INSULIN ASPART [NOVOLOG] 3 ML PEN SC ×4 (07:55→22:17)
[2018-07-24] MEDS: COLLAGENASE 5 GM (UD JAR) TOP (09:19)
[2018-07-24] MEDS: CEFEPIME 1GM/50 ML (PMX) 50 ML IVPB ×2 (09:19→21:30)
[2018-07-24] MEDS: CYCLOBENZAPRINE 10 MG TAB PO ×2 (09:19→21:32)
[2018-07-24] MEDS: MIDODRINE 5 MG TAB PO ×3 (09:20→17:00)
[2018-07-24] MEDS: PROPRANOLOL 10 MG TAB PO ×2 (09:20→21:33)
[2018-07-24] MEDS: DOXYCYCLINE 100 MG TAB PO ×2 (09:21→21:31)
[2018-07-24] MEDS: METHADONE (1 MG/ML 5 ML PO UD SYG) PO (09:23)
[2018-07-24] MEDS: SODIUM HYPOCHLORITE (1/40) 1 APPLIC BTL IRR (09:26)
[2018-07-24] MEDS: ALBUTEROL/IPRATROPIUM (NEB) 3 ML AMP HHN (21:08)
[2018-07-24] MEDS: LORAZEPAM 0.5 MG TAB PO (21:49)
[2018-07-24] MEDS ORDERED: GENTAMICIN 300 MG in SOD CHLORIDE 0.9% 100 ML IVPB (22:00)
[2018-07-24] MEDS: INSULIN GLARGINE [LANTus] (100 UNITS/ML) SYG SC (22:16)
[2018-07-25] MEDS: GUAIFENESIN LA 600 MG TABSR PO ×4 (01:06→17:46)
[2018-07-25] MEDS: PANTOPRAZOLE (EC) 40 MG TAB PO (05:49)
[2018-07-25] MEDS: HEPARIN 5,000 UNIT/1 ML VIAL SC ×3 (06:01→21:26)
[2018-07-25] MEDS: INSULIN ASPART [NOVOLOG] 3 ML PEN SC ×4 (07:55→21:00)
[2018-07-25] MEDS: CEFEPIME 1GM/50 ML (PMX) 50 ML IVPB ×2 (08:22→21:10)
[2018-07-25] MEDS: COLLAGENASE 5 GM (UD JAR) TOP (08:22)
[2018-07-25] MEDS: DOXYCYCLINE 100 MG TAB PO ×2 (08:23→21:09)
[2018-07-25] MEDS: CYCLOBENZAPRINE 10 MG TAB PO (08:24)
[2018-07-25] MEDS: METHADONE (1 MG/ML 5 ML PO UD SYG) PO (08:24)
[2018-07-25] MEDS: PROPRANOLOL 10 MG TAB PO ×2 (08:24→21:09)
[2018-07-25] MEDS: SOD CHLORIDE 0.9% 1,000 ML IV ×2 (08:25→12:05)
[2018-07-25] MEDS: SODIUM HYPOCHLORITE (1/40) 1 APPLIC BTL IRR (08:25)
[2018-07-25] MEDS: MIDODRINE 5 MG TAB PO ×3 (08:25→17:46)
[2018-07-25] MEDS: LORAZEPAM 0.5 MG TAB PO (15:21)
[2018-07-25] MEDS: INSULIN GLARGINE [LANTus] (100 UNITS/ML) SYG SC (21:26)
[2018-07-26] MEDS: GUAIFENESIN LA 600 MG TABSR PO ×4 (00:01→17:23)
[2018-07-26] MEDS: CYCLOBENZAPRINE 10 MG TAB PO ×3 (00:02→20:30)
[2018-07-26] MEDS: LORAZEPAM 0.5 MG TAB PO ×2 (01:16→17:23)
[2018-07-26] MEDS: SOD CHLORIDE 0.9% 1,000 ML IV ×2 (02:08→13:59)
[2018-07-26] MEDS: PANTOPRAZOLE (EC) 40 MG TAB PO (05:49)
[2018-07-26] MEDS: HEPARIN 5,000 UNIT/1 ML VIAL SC ×3 (05:55→22:37)
[2018-07-26 06:09] LABS: ADD MAN DIFF? NO
[2018-07-26 06:23] LABS: ABNORMAL IP MESSAGE 1; BASOPHIL # 0.1 10^3/ul (0.0-0.1); BASOPHILS % 0.5 % (0.0-2.0); EOSINOPHILS % 6.2 % (0.0-7.0); HEMATOCRIT 33.8 % (42.0-52.0); HEMOGLOBIN 11.3 g/dl (14.0-18.0); LYMPHOCYTES # 5.3 10^3/ul (0.8-2.9); LYMPHOCYTES % 33.5 % (15.0-51.0); MEAN CORPUSCULAR HGB CONC 33.4 g/dl (32.0-37.0); MEAN CORPUSCULAR VOLUME 83.7 fl (82.0-101.0); MEAN PLATELET VOLUME 8.5 fl (7.4-10.4); MONOCYTE # 1.1 10^3/ul (0.3-0.9); MONOCYTES % 6.8 % (0.0-11.0); NEUTROPHIL # 8.2 10^3/ul (1.6-7.5); NEUTROPHILS % 51.7 % (39.0-77.0); PLATELET COUNT 329 10^3/UL (140-415); POSITIVE DIFF @See below; RED BLOOD COUNT 4.04 10^6/ul (4.70-6.10); RED CELL DISTRIBUTION WIDTH 14.4 % (11.5-14.5)
[2018-07-26 06:23] LABS: WHITE BLOOD COUNT 15.8 10^3/ul (4.8-10.8)
[2018-07-26 06:57] LABS: ANION GAP 1 (5-13); BLOOD UREA NITROGEN 32 mg/dl (7-20); CALCIUM 8.4 mg/dl (8.4-10.2); CARBON DIOXIDE 22 mmol/L (21-31); CHLORIDE 109 mmol/L (97-110); CREATININE 1.75 mg/dl (0.61-1.24); Estimated GFR 41 mL/min (>60); GLUCOSE 68 mg/dl (70-220); POTASSIUM 3.6 mmol/L (3.5-5.1); SODIUM 132 mmol/L (135-144)
[2018-07-26] MEDS: INSULIN ASPART [NOVOLOG] 3 ML PEN SC ×4 (07:55→22:37)
[2018-07-26] MEDS: DOXYCYCLINE 100 MG TAB PO ×2 (08:11→20:30)
[2018-07-26] MEDS: PROPRANOLOL 10 MG TAB PO ×2 (08:13→20:30)
[2018-07-26] MEDS: MIDODRINE 5 MG TAB PO ×3 (08:14→17:23)
[2018-07-26] MEDS: COLLAGENASE 5 GM (UD JAR) TOP (08:14)
[2018-07-26] MEDS: CEFEPIME 1GM/50 ML (PMX) 50 ML IVPB ×2 (08:16→20:30)
[2018-07-26] MEDS: SODIUM HYPOCHLORITE (1/40) 1 APPLIC BTL IRR (08:16)
[2018-07-26] MEDS: METHADONE (1 MG/ML 5 ML PO UD SYG) PO (08:42)
[2018-07-26] MEDS: INSULIN GLARGINE [LANTus] (100 UNITS/ML) SYG SC (20:56)
[2018-07-27] MEDS: GUAIFENESIN LA 600 MG TABSR PO ×4 (00:24→17:08)
[2018-07-27] MEDS: LORAZEPAM 0.5 MG TAB PO ×2 (02:55→21:21)
[2018-07-27] MEDS: PANTOPRAZOLE (EC) 40 MG TAB PO (06:18)
[2018-07-27] MEDS: HEPARIN 5,000 UNIT/1 ML VIAL SC ×3 (06:38→21:47)
[2018-07-27] MEDS: INSULIN ASPART [NOVOLOG] 3 ML PEN SC ×4 (07:55→20:20)
[2018-07-27] MEDS: SOD CHLORIDE 0.9% 1,000 ML IV ×2 (08:21→17:09)
[2018-07-27] MEDS: CEFEPIME 1GM/50 ML (PMX) 50 ML IVPB ×2 (09:43→20:20)
[2018-07-27] MEDS: DOXYCYCLINE 100 MG TAB PO ×2 (09:43→20:21)
[2018-07-27] MEDS: PROPRANOLOL 10 MG TAB PO ×2 (09:44→20:23)
[2018-07-27] MEDS: MIDODRINE 5 MG TAB PO ×3 (09:44→17:08)
[2018-07-27] MEDS: CYCLOBENZAPRINE 10 MG TAB PO ×2 (09:44→20:20)
[2018-07-27] MEDS: METHADONE (1 MG/ML 5 ML PO UD SYG) PO (09:46)
[2018-07-27] MEDS: SODIUM HYPOCHLORITE (1/40) 1 APPLIC BTL IRR (09:46)
[2018-07-27] MEDS: COLLAGENASE 5 GM (UD JAR) TOP (09:46)
[2018-07-27] MEDS: INSULIN GLARGINE [LANTus] (100 UNITS/ML) SYG SC (20:35)
[2018-07-28] MEDS: SOD CHLORIDE 0.9% 1,000 ML IV (00:27)
[2018-07-28] MEDS: GUAIFENESIN LA 600 MG TABSR PO ×5 (00:27→22:52)
[2018-07-28] MEDS: PANTOPRAZOLE (EC) 40 MG TAB PO (06:14)
[2018-07-28] MEDS: HEPARIN 5,000 UNIT/1 ML VIAL SC ×3 (06:23→20:50)
[2018-07-28] MEDS: INSULIN ASPART [NOVOLOG] 3 ML PEN SC ×4 (07:55→20:36)
[2018-07-28] MEDS: CEFEPIME 1GM/50 ML (PMX) 50 ML IVPB ×2 (08:45→20:37)
[2018-07-28] MEDS: DOXYCYCLINE 100 MG TAB PO ×2 (08:45→20:36)
[2018-07-28] MEDS: MIDODRINE 5 MG TAB PO ×3 (08:47→17:31)
[2018-07-28] MEDS: PROPRANOLOL 10 MG TAB PO ×2 (08:48→20:37)
[2018-07-28] MEDS: CYCLOBENZAPRINE 10 MG TAB PO ×2 (08:48→20:36)
[2018-07-28] MEDS: METHADONE (1 MG/ML 5 ML PO UD SYG) PO (08:49)
[2018-07-28] MEDS: SODIUM HYPOCHLORITE (1/40) 1 APPLIC BTL IRR (08:49)
[2018-07-28] MEDS: COLLAGENASE 5 GM (UD JAR) TOP (08:49)
[2018-07-28] MEDS: ALBUTEROL/IPRATROPIUM (NEB) 3 ML AMP HHN (09:39)
[2018-07-28] MEDS: INSULIN GLARGINE [LANTus] (100 UNITS/ML) SYG SC (20:44)
[2018-07-29 00:29] LABS: ADD UMIC YES; UR ASCORBIC ACID NEGATIVE (NEGATIVE); UR BACTERIA FEW /HPF (NONE SEEN); UR BILIRUBIN (Dip) NEGATIVE (NEGATIVE); UR BLOOD (Dip) NEGATIVE (NEGATIVE); UR BUDDING YEAST MANY /HPF (NONE SEEN); UR CLARITY CLOUDY (CLEAR); UR COLOR YELLOW (YELLOW); UR GLUCOSE (Dip) 3+ mg/dL (NEGATIVE); UR KETONES (Dip) NEGATIVE (NEGATIVE); UR LEUKOCYTE ESTERASE (Dip) 1+ Leu/ul (NEGATIVE); UR NITRITE (Dip) NEGATIVE (NEGATIVE); UR RBC 2 /HPF (0-5); UR SPECIFIC GRAVITY (Dip) 1.009 (1.003-1.030); UR TOTAL PROTEIN (Dip) 2+ mg/dl (NEGATIVE); UR UROBILINOGEN (Dip) NEGATIVE (NEGATIVE); UR WBC 124 /HPF (0-5)
[2018-07-29 05:53] LABS: ADD MAN DIFF? NO
[2018-07-29 06:02] LABS: BASOPHIL # 0.1 10^3/ul (0.0-0.1); BASOPHILS % 0.5 % (0.0-2.0); EOSINOPHILS # 0.9 10^3/ul (0.0-0.5); EOSINOPHILS % 8.5 % (0.0-7.0); HEMATOCRIT 28.5 % (42.0-52.0); HEMOGLOBIN 9.5 g/dl (14.0-18.0); LYMPHOCYTES # 4.1 10^3/ul (0.8-2.9); MEAN CORPUSCULAR HGB CONC 33.3 g/dl (32.0-37.0); MEAN CORPUSCULAR VOLUME 84.1 fl (82.0-101.0); MEAN PLATELET VOLUME 8.9 fl (7.4-10.4); MONOCYTE # 0.9 10^3/ul (0.3-0.9); MONOCYTES % 7.9 % (0.0-11.0); NEUTROPHIL # 4.8 10^3/ul (1.6-7.5); NEUTROPHILS % 44.5 % (39.0-77.0); PLATELET COUNT 263 10^3/UL (140-415); RED BLOOD COUNT 3.39 10^6/ul (4.70-6.10); RED CELL DISTRIBUTION WIDTH 14.6 % (11.5-14.5)
[2018-07-29 06:02] LABS: WHITE BLOOD COUNT 10.8 10^3/ul (4.8-10.8)
[2018-07-29] MEDS: GUAIFENESIN LA 600 MG TABSR PO ×4 (06:09→23:22)
[2018-07-29] MEDS: PANTOPRAZOLE (EC) 40 MG TAB PO (06:10)
[2018-07-29] MEDS: HEPARIN 5,000 UNIT/1 ML VIAL SC ×3 (06:13→21:27)
[2018-07-29 06:14] LABS: MAGNESIUM 1.6 mg/dl (1.7-2.5)
[2018-07-29 06:18] LABS: ANION GAP 7 (5-13); BLOOD UREA NITROGEN 43 mg/dl (7-20); CALCIUM 8.3 mg/dl (8.4-10.2); CARBON DIOXIDE 21 mmol/L (21-31); CHLORIDE 108 mmol/L (97-110); CREATININE 2.33 mg/dl (0.61-1.24); Estimated GFR 29 mL/min (>60); GLUCOSE 89 mg/dl (70-220); POTASSIUM 3.6 mmol/L (3.5-5.1); SODIUM 136 mmol/L (135-144)
[2018-07-29] MEDS: INSULIN ASPART [NOVOLOG] 3 ML PEN SC ×4 (07:55→21:13)
[2018-07-29] MEDS: COLLAGENASE 5 GM (UD JAR) TOP (08:18)
[2018-07-29] MEDS: MIDODRINE 5 MG TAB PO ×3 (08:19→17:39)
[2018-07-29] MEDS: CEFEPIME 1GM/50 ML (PMX) 50 ML IVPB ×2 (08:19→21:07)
[2018-07-29] MEDS: CYCLOBENZAPRINE 10 MG TAB PO ×2 (08:20→21:09)
[2018-07-29] MEDS: METHADONE (1 MG/ML 5 ML PO UD SYG) PO (08:20)
[2018-07-29] MEDS: SODIUM HYPOCHLORITE (1/40) 1 APPLIC BTL IRR (08:20)
[2018-07-29] MEDS: DOXYCYCLINE 100 MG TAB PO ×2 (08:29→21:09)
[2018-07-29] MEDS: PROPRANOLOL 10 MG TAB PO ×3 (08:31→23:24)
[2018-07-29] MEDS: MAGNESIUM SULFATE 2 GM/50 ML 50 ML IVPB (15:35)
[2018-07-29] MEDS: ALBUTEROL/IPRATROPIUM (NEB) 3 ML AMP HHN (19:59)
[2018-07-29] MEDS: INSULIN GLARGINE [LANTus] (100 UNITS/ML) SYG SC (21:09)
[2018-07-29] MEDS: LORAZEPAM 0.5 MG TAB PO (21:21)
[2018-07-30] MEDS: ALBUTEROL/IPRATROPIUM (NEB) 3 ML AMP HHN ×2 (03:00→13:41)
[2018-07-30] MEDS: GUAIFENESIN LA 600 MG TABSR PO ×3 (06:27→18:27)
[2018-07-30] MEDS: PANTOPRAZOLE (EC) 40 MG TAB PO (06:27)
[2018-07-30] MEDS: HEPARIN 5,000 UNIT/1 ML VIAL SC ×3 (06:34→23:41)
[2018-07-30 07:11] LABS: ANION GAP 3 (5-13); BLOOD UREA NITROGEN 47 mg/dl (7-20); CALCIUM 8.1 mg/dl (8.4-10.2); CARBON DIOXIDE 20 mmol/L (21-31); CHLORIDE 109 mmol/L (97-110); CREATININE 2.25 mg/dl (0.61-1.24); Estimated GFR 31 mL/min (>60); GLUCOSE 82 mg/dl (70-220); POTASSIUM 3.5 mmol/L (3.5-5.1); SODIUM 132 mmol/L (135-144)
[2018-07-30] MEDS: INSULIN ASPART [NOVOLOG] 3 ML PEN SC ×4 (07:55→20:22)
[2018-07-30 08:02] LABS: MAGNESIUM 2.2 mg/dl (1.7-2.5)
[2018-07-30] MEDS: CEFEPIME 1GM/50 ML (PMX) 50 ML IVPB ×2 (08:09→20:19)
[2018-07-30] MEDS: SODIUM HYPOCHLORITE (1/40) 1 APPLIC BTL IRR (09:13)
[2018-07-30] MEDS: CYCLOBENZAPRINE 10 MG TAB PO ×2 (09:13→20:19)
[2018-07-30] MEDS: DOXYCYCLINE 100 MG TAB PO ×2 (09:13→20:20)
[2018-07-30] MEDS: MIDODRINE 5 MG TAB PO ×3 (09:21→17:00)
[2018-07-30] MEDS: COLLAGENASE 5 GM (UD JAR) TOP (09:22)
[2018-07-30] MEDS: METHADONE (1 MG/ML 5 ML PO UD SYG) PO (10:32)
[2018-07-30] MEDS: LORAZEPAM 0.5 MG TAB PO ×2 (12:52→23:41)
[2018-07-30] MEDS: ONDANSETRON 4 MG INJ IV (14:01)
[2018-07-30] MEDS: SOD CHLORIDE 0.9% 1,000 ML IV (18:27)
[2018-07-30] MEDS: INSULIN GLARGINE [LANTus] (100 UNITS/ML) SYG SC (20:19)
[2018-07-30] MEDS: PROPRANOLOL 10 MG TAB PO (20:21)
[2018-07-31] MEDS: HEPARIN 5,000 UNIT/1 ML VIAL SC ×3 (06:02→21:43)
[2018-07-31] MEDS: PANTOPRAZOLE (EC) 40 MG TAB PO (06:06)
[2018-07-31 06:41] LABS: ADD MAN DIFF? NO
[2018-07-31] MEDS: GUAIFENESIN LA 600 MG TABSR PO ×4 (06:44→17:39)
[2018-07-31 06:46] LABS: WHITE BLOOD COUNT 13.7 10^3/ul (4.8-10.8)
[2018-07-31 06:46] LABS: BASOPHIL # 0.1 10^3/ul (0.0-0.1); BASOPHILS % 0.5 % (0.0-2.0); EOSINOPHILS # 0.7 10^3/ul (0.0-0.5); HEMATOCRIT 30.3 % (42.0-52.0); HEMOGLOBIN 10.2 g/dl (14.0-18.0); LYMPHOCYTES # 4.9 10^3/ul (0.8-2.9); MEAN CORPUSCULAR HEMOGLOBIN 28.3 pg (29.0-33.0); MEAN CORPUSCULAR HGB CONC 33.7 g/dl (32.0-37.0); MEAN CORPUSCULAR VOLUME 83.9 fl (82.0-101.0); MEAN PLATELET VOLUME 9.1 fl (7.4-10.4); MONOCYTE # 1.1 10^3/ul (0.3-0.9); MONOCYTES % 8.3 % (0.0-11.0); NEUTROPHIL # 6.8 10^3/ul (1.6-7.5); NEUTROPHILS % 49.5 % (39.0-77.0); PLATELET COUNT 276 10^3/UL (140-415); RED BLOOD COUNT 3.61 10^6/ul (4.70-6.10); RED CELL DISTRIBUTION WIDTH 14.2 % (11.5-14.5)
[2018-07-31 07:16] LABS: ANION GAP 6 (5-13); BLOOD UREA NITROGEN 45 mg/dl (7-20); CALCIUM 8.5 mg/dl (8.4-10.2); CARBON DIOXIDE 22 mmol/L (21-31); CHLORIDE 107 mmol/L (97-110); CREATININE 2.15 mg/dl (0.61-1.24); Estimated GFR 32 mL/min (>60); GLUCOSE 84 mg/dl (70-220); POTASSIUM 3.6 mmol/L (3.5-5.1); SODIUM 135 mmol/L (135-144)
[2018-07-31] MEDS: INSULIN ASPART [NOVOLOG] 3 ML PEN SC ×4 (08:00→20:26)
[2018-07-31] MEDS: DOXYCYCLINE 100 MG TAB PO ×2 (09:13→20:27)
[2018-07-31] MEDS: SOD CHLORIDE 0.9% 500 ML IV (09:13)
[2018-07-31] MEDS: CEFEPIME 1GM/50 ML (PMX) 50 ML IVPB ×2 (09:14→20:27)
[2018-07-31 09:21] LABS: LACTIC ACID 0.9 mmol/L (0.5-2.0)
[2018-07-31] MEDS: COLLAGENASE 5 GM (UD JAR) TOP (11:35)
[2018-07-31] MEDS: MIDODRINE 5 MG TAB PO ×3 (11:35→17:39)
[2018-07-31] MEDS: SOD CHLORIDE 0.9% 1,000 ML IV ×2 (11:36→19:42)
[2018-07-31] MEDS: SODIUM HYPOCHLORITE (1/40) 1 APPLIC BTL IRR (11:38)
[2018-07-31] MEDS: METHADONE (1 MG/ML 5 ML PO UD SYG) PO (12:30)
[2018-07-31] MEDS: CYCLOBENZAPRINE 10 MG TAB PO ×2 (14:53→20:27)
[2018-07-31] MEDS: INSULIN GLARGINE [LANTus] (100 UNITS/ML) SYG SC (20:26)
[2018-07-31] MEDS: LORAZEPAM 0.5 MG TAB PO (23:34)
[2018-08-01] MEDS: GUAIFENESIN LA 600 MG TABSR PO ×4 (00:04→17:38)
[2018-08-01] MEDS: PANTOPRAZOLE (EC) 40 MG TAB PO (05:35)
[2018-08-01] MEDS: HEPARIN 5,000 UNIT/1 ML VIAL SC ×2 (05:37→14:00)
[2018-08-01 07:40] LABS: ADD MAN DIFF? NO
[2018-08-01 07:43] LABS: BASOPHIL # 0.1 10^3/ul (0.0-0.1); BASOPHILS % 0.6 % (0.0-2.0); EOSINOPHILS # 0.8 10^3/ul (0.0-0.5); EOSINOPHILS % 7.1 % (0.0-7.0); HEMOGLOBIN 9.6 g/dl (14.0-18.0); LYMPHOCYTES # 3.9 10^3/ul (0.8-2.9); LYMPHOCYTES % 35.1 % (15.0-51.0); MEAN CORPUSCULAR HEMOGLOBIN 28.2 pg (29.0-33.0); MEAN CORPUSCULAR HGB CONC 33.1 g/dl (32.0-37.0); MEAN CORPUSCULAR VOLUME 85.3 fl (82.0-101.0); MEAN PLATELET VOLUME 9.1 fl (7.4-10.4); MONOCYTE # 0.9 10^3/ul (0.3-0.9); MONOCYTES % 8.4 % (0.0-11.0); NEUTROPHIL # 5.3 10^3/ul (1.6-7.5); PLATELET COUNT 254 10^3/UL (140-415); RED CELL DISTRIBUTION WIDTH 14.3 % (11.5-14.5)
[2018-08-01 07:43] LABS: WHITE BLOOD COUNT 11.1 10^3/ul (4.8-10.8)
[2018-08-01] MEDS: INSULIN ASPART [NOVOLOG] 3 ML PEN SC ×4 (08:00→20:55)
[2018-08-01 08:11] LABS: ANION GAP 7 (5-13); BLOOD UREA NITROGEN 47 mg/dl (7-20); CALCIUM 8.6 mg/dl (8.4-10.2); CARBON DIOXIDE 21 mmol/L (21-31); CHLORIDE 109 mmol/L (97-110); CREATININE 2.29 mg/dl (0.61-1.24); Estimated GFR 30 mL/min (>60); GLUCOSE 91 mg/dl (70-220); POTASSIUM 3.6 mmol/L (3.5-5.1); SODIUM 137 mmol/L (135-144)
[2018-08-01] MEDS: MIDODRINE 5 MG TAB PO ×3 (09:00→17:00)
[2018-08-01] MEDS: METHADONE (1 MG/ML 5 ML PO UD SYG) PO (09:36)
[2018-08-01] MEDS: DOXYCYCLINE 100 MG TAB PO ×2 (09:36→20:52)
[2018-08-01] MEDS: CYCLOBENZAPRINE 10 MG TAB PO ×2 (09:36→20:51)
[2018-08-01] MEDS: COLLAGENASE 5 GM (UD JAR) TOP (09:36)
[2018-08-01] MEDS: SODIUM HYPOCHLORITE (1/40) 1 APPLIC BTL IRR (09:37)
[2018-08-01] MEDS: CEFEPIME 1GM/50 ML (PMX) 50 ML IVPB (09:37)
[2018-08-01] MEDS: SILVER NITRATE SWAB TOP (16:31)
[2018-08-01] MEDS: LIDOCAINE 2%/EPI (MDV) 20ML INJ INJ (16:32)
[2018-08-01] MEDS: INSULIN GLARGINE [LANTus] (100 UNITS/ML) SYG SC (20:55)
[2018-08-02] MEDS: GUAIFENESIN LA 600 MG TABSR PO ×4 (00:42→17:28)
[2018-08-02] MEDS: ALBUTEROL/IPRATROPIUM (NEB) 3 ML AMP HHN (02:11)
[2018-08-02] MEDS: LORAZEPAM 0.5 MG TAB PO ×2 (02:19→13:36)
[2018-08-02] MEDS: PANTOPRAZOLE (EC) 40 MG TAB PO (06:03)
[2018-08-02] MEDS: FUROSEMIDE 20 MG INJ IV (06:05)
[2018-08-02] MEDS: HEPARIN 5,000 UNIT/1 ML VIAL SC ×3 (06:21→20:55)
[2018-08-02 06:34] LABS: ADD MAN DIFF? NO
[2018-08-02 06:36] LABS: WHITE BLOOD COUNT 11.6 10^3/ul (4.8-10.8)
[2018-08-02 06:36] LABS: BASOPHIL # 0.1 10^3/ul (0.0-0.1); BASOPHILS % 0.6 % (0.0-2.0); EOSINOPHILS # 0.7 10^3/ul (0.0-0.5); EOSINOPHILS % 5.8 % (0.0-7.0); HEMATOCRIT 28.9 % (42.0-52.0); HEMOGLOBIN 9.7 g/dl (14.0-18.0); LYMPHOCYTES % 34.7 % (15.0-51.0); MEAN CORPUSCULAR HEMOGLOBIN 28.2 pg (29.0-33.0); MEAN CORPUSCULAR HGB CONC 33.6 g/dl (32.0-37.0); MEAN PLATELET VOLUME 9.2 fl (7.4-10.4); MONOCYTE # 0.8 10^3/ul (0.3-0.9); MONOCYTES % 7.2 % (0.0-11.0); NEUTROPHIL # 5.9 10^3/ul (1.6-7.5); NEUTROPHILS % 50.8 % (39.0-77.0); PLATELET COUNT 239 10^3/UL (140-415); RED BLOOD COUNT 3.44 10^6/ul (4.70-6.10); RED CELL DISTRIBUTION WIDTH 14.3 % (11.5-14.5)
[2018-08-02 07:02] LABS: ANION GAP 6 (5-13); BLOOD UREA NITROGEN 48 mg/dl (7-20); CALCIUM 8.7 mg/dl (8.4-10.2); CARBON DIOXIDE 21 mmol/L (21-31); CHLORIDE 107 mmol/L (97-110); CREATININE 2.33 mg/dl (0.61-1.24); Estimated GFR 29 mL/min (>60); GLUCOSE 88 mg/dl (70-220); POTASSIUM 3.9 mmol/L (3.5-5.1); SODIUM 134 mmol/L (135-144)
[2018-08-02] MEDS: INSULIN ASPART [NOVOLOG] 3 ML PEN SC ×4 (08:00→20:55)
[2018-08-02] MEDS: MIDODRINE 5 MG TAB PO ×3 (08:22→17:28)
[2018-08-02] MEDS: SODIUM HYPOCHLORITE (1/40) 1 APPLIC BTL IRR (08:23)
[2018-08-02] MEDS: DOXYCYCLINE 100 MG TAB PO ×2 (08:23→20:47)
[2018-08-02] MEDS: CYCLOBENZAPRINE 10 MG TAB PO ×2 (08:23→20:48)
[2018-08-02] MEDS: ONDANSETRON 4 MG INJ IV (09:31)
[2018-08-02] MEDS: METHADONE (1 MG/ML 5 ML PO UD SYG) PO (10:16)
[2018-08-02] MEDS: INSULIN GLARGINE [LANTus] (100 UNITS/ML) SYG SC (20:54)
[2018-08-03] MEDS: LORAZEPAM 0.5 MG TAB PO ×2 (01:47→22:09)
[2018-08-03] MEDS: GUAIFENESIN LA 600 MG TABSR PO ×4 (05:45→18:33)
[2018-08-03] MEDS: PANTOPRAZOLE (EC) 40 MG TAB PO (05:45)
[2018-08-03] MEDS: HEPARIN 5,000 UNIT/1 ML VIAL SC ×3 (05:48→21:00)
[2018-08-03 06:05] LABS: ADD MAN DIFF? NO
[2018-08-03 06:21] LABS: BASOPHIL # 0.1 10^3/ul (0.0-0.1); BASOPHILS % 0.5 % (0.0-2.0); EOSINOPHILS # 0.7 10^3/ul (0.0-0.5); EOSINOPHILS % 5.1 % (0.0-7.0); HEMATOCRIT 27.9 % (42.0-52.0); HEMOGLOBIN 9.5 g/dl (14.0-18.0); LYMPHOCYTES # 4.6 10^3/ul (0.8-2.9); MEAN CORPUSCULAR HEMOGLOBIN 28.4 pg (29.0-33.0); MEAN CORPUSCULAR HGB CONC 34.1 g/dl (32.0-37.0); MEAN CORPUSCULAR VOLUME 83.3 fl (82.0-101.0); MEAN PLATELET VOLUME 9.2 fl (7.4-10.4); NEUTROPHIL # 6.3 10^3/ul (1.6-7.5); NEUTROPHILS % 49.2 % (39.0-77.0); PLATELET COUNT 283 10^3/UL (140-415); RED BLOOD COUNT 3.35 10^6/ul (4.70-6.10); RED CELL DISTRIBUTION WIDTH 14.3 % (11.5-14.5)
[2018-08-03 06:21] LABS: WHITE BLOOD COUNT 12.7 10^3/ul (4.8-10.8)
[2018-08-03 06:40] LABS: ANION GAP 4 (5-13); BLOOD UREA NITROGEN 50 mg/dl (7-20); CALCIUM 8.3 mg/dl (8.4-10.2); CARBON DIOXIDE 20 mmol/L (21-31); CHLORIDE 108 mmol/L (97-110); CREATININE 2.58 mg/dl (0.61-1.24); Estimated GFR 26 mL/min (>60); GLUCOSE 195 mg/dl (70-220); POTASSIUM 3.5 mmol/L (3.5-5.1); SODIUM 132 mmol/L (135-144)
[2018-08-03] MEDS: INSULIN ASPART [NOVOLOG] 3 ML PEN SC ×4 (08:00→20:50)
[2018-08-03] MEDS: DOXYCYCLINE 100 MG TAB PO ×2 (09:38→20:48)
[2018-08-03] MEDS: METHADONE 10 MG TAB PO (09:38)
[2018-08-03] MEDS: CYCLOBENZAPRINE 10 MG TAB PO ×2 (09:38→20:47)
[2018-08-03] MEDS: MIDODRINE 5 MG TAB PO ×3 (09:39→17:00)
[2018-08-03] MEDS: SODIUM HYPOCHLORITE (1/40) 1 APPLIC BTL IRR (09:41)
[2018-08-03] MEDS: DOCUSATE SODIUM 100 MG CAP PO (13:41)
[2018-08-03] MEDS: INSULIN GLARGINE [LANTus] (100 UNITS/ML) SYG SC (20:54)
[2018-08-04] MEDS: GUAIFENESIN LA 600 MG TABSR PO ×4 (00:55→17:35)
[2018-08-04] MEDS: CEFEPIME 1GM/50 ML (PMX) 50 ML IVPB ×3 (00:59→20:47)
[2018-08-04 05:30] LABS: ADD MAN DIFF? NO
[2018-08-04 05:40] LABS: ABNORMAL IP MESSAGE 1; BASOPHIL # 0.1 10^3/ul (0.0-0.1); BASOPHILS % 0.5 % (0.0-2.0); EOSINOPHILS # 0.7 10^3/ul (0.0-0.5); EOSINOPHILS % 5.2 % (0.0-7.0); HEMATOCRIT 31.5 % (42.0-52.0); HEMOGLOBIN 10.6 g/dl (14.0-18.0); LYMPHOCYTES # 5.1 10^3/ul (0.8-2.9); LYMPHOCYTES % 37.6 % (15.0-51.0); MEAN CORPUSCULAR HEMOGLOBIN 27.6 pg (29.0-33.0); MEAN CORPUSCULAR HGB CONC 33.7 g/dl (32.0-37.0); MONOCYTE # 1.1 10^3/ul (0.3-0.9); MONOCYTES % 8.1 % (0.0-11.0); NEUTROPHIL # 6.4 10^3/ul (1.6-7.5); NEUTROPHILS % 47.3 % (39.0-77.0); PLATELET COUNT 322 10^3/UL (140-415); POSITIVE DIFF @See below; RED BLOOD COUNT 3.84 10^6/ul (4.70-6.10); RED CELL DISTRIBUTION WIDTH 14.1 % (11.5-14.5)
[2018-08-04 05:40] LABS: WHITE BLOOD COUNT 13.6 10^3/ul (4.8-10.8)
[2018-08-04] MEDS: PANTOPRAZOLE (EC) 40 MG TAB PO (05:52)
[2018-08-04] MEDS: HEPARIN 5,000 UNIT/1 ML VIAL SC ×3 (05:53→22:19)
[2018-08-04 06:11] LABS: ANION GAP 9 (5-13); BLOOD UREA NITROGEN 55 mg/dl (7-20); CALCIUM 8.9 mg/dl (8.4-10.2); CARBON DIOXIDE 21 mmol/L (21-31); CHLORIDE 106 mmol/L (97-110); CREATININE 2.52 mg/dl (0.61-1.24); Estimated GFR 27 mL/min (>60); GLUCOSE 72 mg/dl (70-220); POTASSIUM 3.6 mmol/L (3.5-5.1); SODIUM 136 mmol/L (135-144)
[2018-08-04] MEDS: INSULIN ASPART [NOVOLOG] 3 ML PEN SC ×4 (08:00→20:51)
[2018-08-04] MEDS: SODIUM HYPOCHLORITE (1/40) 1 APPLIC BTL IRR (08:09)
[2018-08-04] MEDS: MIDODRINE 5 MG TAB PO ×3 (08:10→17:00)
[2018-08-04] MEDS: DOXYCYCLINE 100 MG TAB PO ×2 (08:10→20:46)
[2018-08-04] MEDS: CYCLOBENZAPRINE 10 MG TAB PO ×2 (08:10→20:47)
[2018-08-04] MEDS: METHADONE 10 MG TAB PO (08:10)
[2018-08-04] MEDS: [UNRECOGNIZED DRUG - REMARK] XX (12:09)
[2018-08-04] MEDS: ARTIFICIAL TEARS 15 ML OPH BOTH EYES ×2 (13:52→20:47)
[2018-08-04] MEDS: LORAZEPAM 0.5 MG TAB PO ×2 (15:19→22:17)
[2018-08-04] MEDS: SOD CHLORIDE 0.9% 250 ML IV (16:49)
[2018-08-04] MEDS: CIPROFLOXACIN 400MG/D5W 200 ML IVPB (18:21)
[2018-08-04] MEDS: PROPRANOLOL 10 MG TAB PO (20:49)
[2018-08-04] MEDS: INSULIN GLARGINE [LANTus] (100 UNITS/ML) SYG SC (20:51)
[2018-08-05] MEDS: PANTOPRAZOLE (EC) 40 MG TAB PO (05:49)
[2018-08-05] MEDS: GUAIFENESIN LA 600 MG TABSR PO ×4 (05:49→17:32)
[2018-08-05 06:02] LABS: ADD MAN DIFF? NO
[2018-08-05] MEDS: HEPARIN 5,000 UNIT/1 ML VIAL SC ×3 (06:02→21:26)
[2018-08-05 06:21] LABS: ABNORMAL IP MESSAGE 1; BASOPHIL # 0.1 10^3/ul (0.0-0.1); BASOPHILS % 0.6 % (0.0-2.0); EOSINOPHILS % 6.3 % (0.0-7.0); HEMATOCRIT 30.2 % (42.0-52.0); HEMOGLOBIN 10.2 g/dl (14.0-18.0); LYMPHOCYTES # 5.8 10^3/ul (0.8-2.9); LYMPHOCYTES % 36.5 % (15.0-51.0); MEAN CORPUSCULAR HEMOGLOBIN 28.3 pg (29.0-33.0); MEAN CORPUSCULAR HGB CONC 33.8 g/dl (32.0-37.0); MEAN CORPUSCULAR VOLUME 83.7 fl (82.0-101.0); MEAN PLATELET VOLUME 8.9 fl (7.4-10.4); MONOCYTE # 1.3 10^3/ul (0.3-0.9); MONOCYTES % 8.2 % (0.0-11.0); NEUTROPHIL # 7.4 10^3/ul (1.6-7.5); NEUTROPHILS % 46.4 % (39.0-77.0); NUCLEATED RED BLOOD CELLS% 0.2 /100WBC (0.0-0.0); PLATELET COUNT 354 10^3/UL (140-415); POSITIVE DIFF @See below; RED BLOOD COUNT 3.61 10^6/ul (4.70-6.10); RED CELL DISTRIBUTION WIDTH 14.2 % (11.5-14.5)
[2018-08-05 06:46] LABS: ANION GAP 4 (5-13); BLOOD UREA NITROGEN 54 mg/dl (7-20); CALCIUM 8.7 mg/dl (8.4-10.2); CARBON DIOXIDE 20 mmol/L (21-31); CHLORIDE 109 mmol/L (97-110); CREATININE 2.49 mg/dl (0.61-1.24); Estimated GFR 27 mL/min (>60); GLUCOSE 72 mg/dl (70-220); POTASSIUM 3.5 mmol/L (3.5-5.1); SODIUM 133 mmol/L (135-144)
[2018-08-05] MEDS: INSULIN ASPART [NOVOLOG] 3 ML PEN SC ×4 (08:00→21:00)
[2018-08-05] MEDS: CEFEPIME 1GM/50 ML (PMX) 50 ML IVPB ×2 (08:07→21:23)
[2018-08-05] MEDS: CYCLOBENZAPRINE 10 MG TAB PO ×2 (08:07→21:23)
[2018-08-05] MEDS: DOXYCYCLINE 100 MG TAB PO ×2 (08:08→21:23)
[2018-08-05] MEDS: PROPRANOLOL 10 MG TAB PO ×2 (08:08→21:24)
[2018-08-05] MEDS: MIDODRINE 5 MG TAB PO ×3 (08:08→17:00)
[2018-08-05] MEDS: SODIUM HYPOCHLORITE (1/40) 1 APPLIC BTL IRR (08:09)
[2018-08-05] MEDS: COLLAGENASE 5 GM (UD JAR) TOP (08:10)
[2018-08-05] MEDS: ARTIFICIAL TEARS 15 ML OPH BOTH EYES ×2 (09:25→21:23)
[2018-08-05] MEDS: CIPROFLOXACIN 400MG/D5W 200 ML IVPB (09:25)
[2018-08-05] MEDS: METHADONE 10 MG TAB PO (10:32)
[2018-08-05] MEDS: ONDANSETRON 4 MG INJ IV (12:35)
[2018-08-05] MEDS: CIPROFLOXACIN 500 MG TAB PO (17:32)
[2018-08-05 18:46] LABS: ADD UMIC YES; UR ASCORBIC ACID NEGATIVE (NEGATIVE); UR BACTERIA FEW /HPF (NONE SEEN); UR BILIRUBIN (Dip) NEGATIVE (NEGATIVE); UR BLOOD (Dip) 1+ mg/dL (NEGATIVE); UR BUDDING YEAST MANY /HPF (NONE SEEN); UR CLARITY SLIGHTLY CLOUDY (CLEAR); UR COLOR YELLOW (YELLOW); UR GLUCOSE (Dip) 3+ mg/dL (NEGATIVE); UR KETONES (Dip) NEGATIVE (NEGATIVE); UR LEUKOCYTE ESTERASE (Dip) 1+ Leu/ul (NEGATIVE); UR NITRITE (Dip) NEGATIVE (NEGATIVE); UR RBC 5 /HPF (0-5); UR SPECIFIC GRAVITY (Dip) 1.011 (1.003-1.030); UR TOTAL PROTEIN (Dip) 3+ mg/dl (NEGATIVE); UR UROBILINOGEN (Dip) NEGATIVE (NEGATIVE); UR WBC 146 /HPF (0-5)
[2018-08-05] MEDS: INSULIN GLARGINE [LANTus] (100 UNITS/ML) SYG SC (21:26)
[2018-08-05] MEDS: LORAZEPAM 0.5 MG TAB PO (21:57)
[2018-08-06] MEDS: GUAIFENESIN LA 600 MG TABSR PO ×5 (01:52→18:08)
[2018-08-06] MEDS: ALBUTEROL/IPRATROPIUM (NEB) 3 ML AMP HHN (01:55)
[2018-08-06 05:41] LABS: ADD MAN DIFF? NO
[2018-08-06 05:44] LABS: WHITE BLOOD COUNT 16.9 10^3/ul (4.8-10.8)
[2018-08-06 05:44] LABS: ABNORMAL IP MESSAGE 1; BASOPHIL # 0.1 10^3/ul (0.0-0.1); BASOPHILS % 0.5 % (0.0-2.0); EOSINOPHILS # 0.9 10^3/ul (0.0-0.5); EOSINOPHILS % 5.4 % (0.0-7.0); HEMOGLOBIN 10.9 g/dl (14.0-18.0); LYMPHOCYTES # 5.5 10^3/ul (0.8-2.9); LYMPHOCYTES % 32.6 % (15.0-51.0); MEAN CORPUSCULAR HGB CONC 34.1 g/dl (32.0-37.0); MEAN CORPUSCULAR VOLUME 82.3 fl (82.0-101.0); MEAN PLATELET VOLUME 8.9 fl (7.4-10.4); MONOCYTE # 1.5 10^3/ul (0.3-0.9); MONOCYTES % 8.6 % (0.0-11.0); NEUTROPHIL # 8.6 10^3/ul (1.6-7.5); NEUTROPHILS % 51.1 % (39.0-77.0); PLATELET COUNT 341 10^3/UL (140-415); POSITIVE DIFF @See below; RED BLOOD COUNT 3.89 10^6/ul (4.70-6.10); RED CELL DISTRIBUTION WIDTH 14.2 % (11.5-14.5)
[2018-08-06] MEDS: CIPROFLOXACIN 500 MG TAB PO ×2 (05:46→18:08)
[2018-08-06] MEDS: LORAZEPAM 0.5 MG TAB PO (05:46)
[2018-08-06] MEDS: PANTOPRAZOLE (EC) 40 MG TAB PO (05:46)
[2018-08-06] MEDS: HEPARIN 5,000 UNIT/1 ML VIAL SC ×3 (05:49→22:48)
[2018-08-06 06:22] LABS: ANION GAP 6 (5-13); BLOOD UREA NITROGEN 53 mg/dl (7-20); CALCIUM 8.7 mg/dl (8.4-10.2); CARBON DIOXIDE 18 mmol/L (21-31); CHLORIDE 107 mmol/L (97-110); Estimated GFR 26 mL/min (>60); GLUCOSE 97 mg/dl (70-220); SODIUM 131 mmol/L (135-144)
[2018-08-06 06:29] LABS: POTASSIUM 3.9 mmol/L (3.5-5.1)
[2018-08-06] MEDS: INSULIN ASPART [NOVOLOG] 3 ML PEN SC ×4 (08:00→21:07)
[2018-08-06] MEDS: PROPRANOLOL 10 MG TAB PO ×2 (09:00→20:50)
[2018-08-06] MEDS: DOXYCYCLINE 100 MG TAB PO ×2 (09:24→20:48)
[2018-08-06] MEDS: COLLAGENASE 5 GM (UD JAR) TOP (09:24)
[2018-08-06] MEDS: ARTIFICIAL TEARS 15 ML OPH BOTH EYES ×3 (09:25→20:52)
[2018-08-06] MEDS: CEFEPIME 1GM/50 ML (PMX) 50 ML IVPB ×2 (09:25→20:51)
[2018-08-06] MEDS: SODIUM HYPOCHLORITE (1/40) 1 APPLIC BTL IRR (09:25)
[2018-08-06] MEDS: METHADONE 10 MG TAB PO (09:25)
[2018-08-06] MEDS: CYCLOBENZAPRINE 10 MG TAB PO ×2 (09:25→20:48)
[2018-08-06] MEDS: MIDODRINE 5 MG TAB PO ×3 (11:12→18:09)
[2018-08-06] MEDS: INSULIN GLARGINE [LANTus] (100 UNITS/ML) SYG SC (21:05)
[2018-08-06] MEDS: DAPTOMYCIN 375 MG in SOD CHLORIDE 0.9% 100 ML IVPB (22:45)
[2018-08-07] MEDS: GUAIFENESIN LA 600 MG TABSR PO ×5 (00:07→23:51)
[2018-08-07] MEDS: LORAZEPAM 0.5 MG TAB PO ×2 (04:33→22:08)
[2018-08-07] MEDS: PANTOPRAZOLE (EC) 40 MG TAB PO (05:54)
[2018-08-07] MEDS: HEPARIN 5,000 UNIT/1 ML VIAL SC ×3 (05:56→22:11)
[2018-08-07] MEDS: CIPROFLOXACIN 500 MG TAB PO (05:58)
[2018-08-07 06:26] LABS: ADD MAN DIFF? NO
[2018-08-07 06:28] LABS: BASOPHIL # 0.1 10^3/ul (0.0-0.1); BASOPHILS % 0.5 % (0.0-2.0); EOSINOPHILS # 0.8 10^3/ul (0.0-0.5); EOSINOPHILS % 4.7 % (0.0-7.0); HEMATOCRIT 31.6 % (42.0-52.0); HEMOGLOBIN 10.4 g/dl (14.0-18.0); LYMPHOCYTES % 24.3 % (15.0-51.0); MEAN CORPUSCULAR HEMOGLOBIN 27.3 pg (29.0-33.0); MEAN CORPUSCULAR HGB CONC 32.9 g/dl (32.0-37.0); MEAN CORPUSCULAR VOLUME 82.9 fl (82.0-101.0); MEAN PLATELET VOLUME 8.7 fl (7.4-10.4); MONOCYTE # 1.4 10^3/ul (0.3-0.9); MONOCYTES % 8.3 % (0.0-11.0); NEUTROPHILS % 60.8 % (39.0-77.0); PLATELET COUNT 297 10^3/UL (140-415); RED BLOOD COUNT 3.81 10^6/ul (4.70-6.10); RED CELL DISTRIBUTION WIDTH 14.3 % (11.5-14.5)
[2018-08-07 06:28] LABS: WHITE BLOOD COUNT 16.5 10^3/ul (4.8-10.8)
[2018-08-07 06:56] LABS: ANION GAP 6 (5-13); BLOOD UREA NITROGEN 53 mg/dl (7-20); CALCIUM 8.5 mg/dl (8.4-10.2); CARBON DIOXIDE 17 mmol/L (21-31); CHLORIDE 109 mmol/L (97-110); CREATININE 2.85 mg/dl (0.61-1.24); Estimated GFR 23 mL/min (>60); GLUCOSE 167 mg/dl (70-220); POTASSIUM 3.4 mmol/L (3.5-5.1); SODIUM 132 mmol/L (135-144)
[2018-08-07 07:02] LABS: CREATINE KINASE < 20 IU/L (23-200)
[2018-08-07] MEDS: INSULIN ASPART [NOVOLOG] 3 ML PEN SC ×4 (08:00→20:54)
[2018-08-07] MEDS: COLLAGENASE 5 GM (UD JAR) TOP (08:59)
[2018-08-07] MEDS: ARTIFICIAL TEARS 15 ML OPH BOTH EYES ×2 (08:59→20:41)
[2018-08-07] MEDS: CYCLOBENZAPRINE 10 MG TAB PO ×2 (09:01→20:42)
[2018-08-07] MEDS: MIDODRINE 5 MG TAB PO ×3 (09:01→17:00)
[2018-08-07] MEDS: PROPRANOLOL 10 MG TAB PO ×2 (09:02→20:42)
[2018-08-07] MEDS: METHADONE 10 MG TAB PO (09:02)
[2018-08-07] MEDS: SODIUM HYPOCHLORITE (1/40) 1 APPLIC BTL IRR ×2 (09:03→21:00)
[2018-08-07 10:26] LABS: URINE EOSINOPHILS 0.2 % (0-1.9)
[2018-08-07] MEDS: ONDANSETRON 4 MG INJ IV (11:18)
[2018-08-07] MEDS: INSULIN GLARGINE [LANTus] (100 UNITS/ML) SYG SC (20:54)
[2018-08-08 05:26] LABS: ADD MAN DIFF? NO
[2018-08-08 05:31] LABS: ABNORMAL IP MESSAGE 1; BASOPHIL # 0.1 10^3/ul (0.0-0.1); BASOPHILS % 0.6 % (0.0-2.0); HEMATOCRIT 31.6 % (42.0-52.0); HEMOGLOBIN 10.6 g/dl (14.0-18.0); LYMPHOCYTES # 5.5 10^3/ul (0.8-2.9); LYMPHOCYTES % 33.6 % (15.0-51.0); MEAN CORPUSCULAR HEMOGLOBIN 27.6 pg (29.0-33.0); MEAN CORPUSCULAR HGB CONC 33.5 g/dl (32.0-37.0); MEAN CORPUSCULAR VOLUME 82.3 fl (82.0-101.0); MEAN PLATELET VOLUME 9.1 fl (7.4-10.4); MONOCYTE # 1.1 10^3/ul (0.3-0.9); MONOCYTES % 6.8 % (0.0-11.0); NEUTROPHIL # 8.4 10^3/ul (1.6-7.5); NEUTROPHILS % 51.4 % (39.0-77.0); PLATELET COUNT 334 10^3/UL (140-415); POSITIVE DIFF @See below; RED BLOOD COUNT 3.84 10^6/ul (4.70-6.10); RED CELL DISTRIBUTION WIDTH 14.6 % (11.5-14.5)
[2018-08-08 05:31] LABS: WHITE BLOOD COUNT 16.3 10^3/ul (4.8-10.8)
[2018-08-08] MEDS: GUAIFENESIN LA 600 MG TABSR PO ×3 (05:40→18:51)
[2018-08-08] MEDS: PANTOPRAZOLE (EC) 40 MG TAB PO (05:40)
[2018-08-08] MEDS: HEPARIN 5,000 UNIT/1 ML VIAL SC ×2 (05:41→15:26)
[2018-08-08 05:53] LABS: ANION GAP 7 (5-13); BLOOD UREA NITROGEN 55 mg/dl (7-20); CALCIUM 8.6 mg/dl (8.4-10.2); CARBON DIOXIDE 15 mmol/L (21-31); CHLORIDE 110 mmol/L (97-110); CREATININE 2.71 mg/dl (0.61-1.24); Estimated GFR 25 mL/min (>60); GLUCOSE 112 mg/dl (70-220); POTASSIUM 3.5 mmol/L (3.5-5.1); SODIUM 132 mmol/L (135-144)
[2018-08-08] MEDS: INSULIN ASPART [NOVOLOG] 3 ML PEN SC ×3 (08:00→17:40)
[2018-08-08] MEDS: CYCLOBENZAPRINE 10 MG TAB PO (09:00)
[2018-08-08] MEDS: MIDODRINE 5 MG TAB PO ×3 (09:00→17:00)
[2018-08-08] MEDS: METHADONE 10 MG TAB PO (09:42)
[2018-08-08] MEDS: PROPRANOLOL 10 MG TAB PO (09:42)
[2018-08-08] MEDS: COLLAGENASE 5 GM (UD JAR) TOP (09:43)
[2018-08-08] MEDS: ARTIFICIAL TEARS 15 ML OPH BOTH EYES (09:43)
[2018-08-08] MEDS: SODIUM HYPOCHLORITE (1/40) 1 APPLIC BTL IRR (09:43)
[2018-08-08] MEDS ORDERED: DAPTOMYCIN 375 MG in SOD CHLORIDE 0.9% 100 ML IVPB (21:00)
== END 2018-08-08 20:25 | DRG 453 ==
LOC: 5EC 04-24 12:59 → ICU 04-30 12:32 → 5EC 05-16 18:03 → 6WM 06-22 15:30 → PP2 07-15 00:12 → TEL 07-18 23:26 → PP2 21:06 → 5EC 04-17 17:47 → 2NE 07-30 21:53 → 5EC 07-16 17:27 → 6WM 04-13 23:00 → 5EC 05-03 20:18 → ICU 05-06 07:02 → PP2 05-07 20:37 → 5EC 04-07 14:27 → ICU 04-10 22:51
PROVIDERS: Hospitalist
PROC: 0RG20A0 Fusion of 2 or more Cervical Vertebral Joints with Interbody Fusion Device, Anterior Approach, Anterior Column, Open Approach (ICD-10-PCS; principal; 2018-04-10 14:30)
PROC: 0RG20J1 Fusion of 2 or more Cervical Vertebral Joints with Synthetic Substitute, Posterior Approach, Posterior Column, Open Approach (ICD-10-PCS; 2018-04-10 14:30)
PROC: 0RB90ZZ Excision of Thoracic Vertebral Disc, Open Approach (ICD-10-PCS; 2018-04-10 14:30)
PROC: 0RG40A0 Fusion of Cervicothoracic Vertebral Joint with Interbody Fusion Device, Anterior Approach, Anterior Column, Open Approach (ICD-10-PCS; 2018-04-10 14:30)
PROC: 0RG70A0 Fusion of 2 to 7 Thoracic Vertebral Joints with Interbody Fusion Device, Anterior Approach, Anterior Column, Open Approach (ICD-10-PCS; 2018-04-10 14:30)
PROC: 0RG40J1 Fusion of Cervicothoracic Vertebral Joint with Synthetic Substitute, Posterior Approach, Posterior Column, Open Approach (ICD-10-PCS; 2018-04-10 14:30)
PROC: 0RB30ZZ Excision of Cervical Vertebral Disc, Open Approach (ICD-10-PCS; 2018-04-10 14:30)
PROC: 0RG70J1 Fusion of 2 to 7 Thoracic Vertebral Joints with Synthetic Substitute, Posterior Approach, Posterior Column, Open Approach (ICD-10-PCS; 2018-04-10 14:30)
PROC: 0RP104Z Removal of Internal Fixation Device from Cervical Vertebral Joint, Open Approach (ICD-10-PCS; 2018-04-10 14:30)
PROC: 0JB90ZZ Excision of Buttock Subcutaneous Tissue and Fascia, Open Approach (ICD-10-PCS; 2018-04-10 16:17)
PROC: 02HV33Z Insertion of Infusion Device into Superior Vena Cava, Percutaneous Approach (ICD-10-PCS; 2018-04-10 16:17)
PROC: 0HB6XZX Excision of Back Skin, External Approach, Diagnostic (ICD-10-PCS; 2018-04-10 16:17)
PROC: 0HBFXZX Excision of Right Hand Skin, External Approach, Diagnostic (ICD-10-PCS; 2018-04-10 16:17)
PROC: 5A09357 Assistance with Respiratory Ventilation, Less than 24 Consecutive Hours, Continuous Positive Airway Pressure (ICD-10-PCS; 2018-04-10 16:17)
PROC: 0HBGXZX Excision of Left Hand Skin, External Approach, Diagnostic (ICD-10-PCS; 2018-04-10 16:17)
PROC: 0T2BX0Z Change Drainage Device in Bladder, External Approach (ICD-10-PCS; 2018-04-10 16:17)
PROC: 30233N1 Transfusion of Nonautologous Red Blood Cells into Peripheral Vein, Percutaneous Approach (ICD-10-PCS; 2018-04-10 16:17)
PROC: 3E0U33Z Introduction of Anti-inflammatory into Joints, Percutaneous Approach (ICD-10-PCS; 2018-04-10 16:17)
DX: M47.12 Other spondylosis with myelopathy, cervical region (principal); G06.1 Intraspinal abscess and granuloma; N17.0 Acute kidney failure with tubular necrosis; J96.01 Acute respiratory failure with hypoxia; L89.154 Pressure ulcer of sacral region, stage 4; G82.50 Quadriplegia, unspecified; J18.9 Pneumonia, unspecified organism; J96.02 Acute respiratory failure with hypercapnia; B37.49 Other urogenital candidiasis; N39.0 Urinary tract infection, site not specified; M46.23 Osteomyelitis of vertebra, cervicothoracic region; E87.1 Hypo-osmolality and hyponatremia; R64 Cachexia; E44.0 Moderate protein-calorie malnutrition; I50.32 Chronic diastolic (congestive) heart failure; G93.40 Encephalopathy, unspecified; M47.13 Other spondylosis with myelopathy, cervicothoracic region; M46.43 Discitis, unspecified, cervicothoracic region; M46.42 Discitis, unspecified, cervical region; E11.69 Type 2 diabetes mellitus with other specified complication; B18.2 Chronic viral hepatitis C; L89.629 Pressure ulcer of left heel, unspecified stage; L89.619 Pressure ulcer of right heel, unspecified stage; E11.649 Type 2 diabetes mellitus with hypoglycemia without coma; L89.899 Pressure ulcer of other site, unspecified stage; E87.6 Hypokalemia; K74.69 Other cirrhosis of liver; I95.9 Hypotension, unspecified; L98.8 Other specified disorders of the skin and subcutaneous tissue; M75.41 Impingement syndrome of right shoulder; D50.9 Iron deficiency anemia, unspecified; R00.0 Tachycardia, unspecified; R33.9 Retention of urine, unspecified; I11.0 Hypertensive heart disease with heart failure; R74.8 Abnormal levels of other serum enzymes; B96.89 Other specified bacterial agents as the cause of diseases classified elsewhere; L72.0 Epidermal cyst; F41.9 Anxiety disorder, unspecified; D69.6 Thrombocytopenia, unspecified; Z68.22 Body mass index [BMI] 22.0-22.9, adult; Z79.4 Long term (current) use of insulin
CPT/HCPCS: 36430; 36569; 36600; 70450; 71045; 72020; 72040; 72125; 72128; 72131; 72156; 72157; 72192; 73030-RT; 74177; 74230; 76937; 80048; 80053; 80170; 80202; 81001; 82533; 82550; 82565; 82728; 82803; 82947; 82962; 83036; 83540; 83605; 83615; 83735; 83930; 84100; 84145; 84443; 84520; 85014; 85018; 85025; 85378; 85610; 85651; 85730; 86850; 86900; 86901; 86920; 87040; 87070; 87075; 87081; 87086; 87102; 87116; 88300; 88304; 89190; 92526; 92610; 92611; 93005; 93306; 93970; 93971; 94002; 94003; 94640; 94644; 94660; 94664; 94667; 94668; 94770; 97110; 97162; 97164; 97165; 97168; 97530; 97535

== ENCOUNTER 2018-09-02 00:52 | Inpatient (IN) | payer MEDICARE, OTHER, MEDICAID ==
[2018-09-02] MEDS: SOD CHLORIDE 0.9% 500 ML IV (01:58)
[2018-09-02] MEDS ORDERED: NACL 0.9% 3 ML SYG IV (02:30)
[2018-09-02 04:44] LABS: ADD MAN DIFF? NO
[2018-09-02 04:45] LABS: BASOPHIL # 0.1 10^3/ul (0.0-0.1); BASOPHILS % 0.7 % (0.0-2.0); EOSINOPHILS # 0.7 10^3/ul (0.0-0.5); EOSINOPHILS % 5.2 % (0.0-7.0); HEMATOCRIT 30.3 % (42.0-52.0); HEMOGLOBIN 9.8 g/dl (14.0-18.0); LYMPHOCYTES # 3.6 10^3/ul (0.8-2.9); LYMPHOCYTES % 27.2 % (15.0-51.0); MEAN CORPUSCULAR HEMOGLOBIN 27.5 pg (29.0-33.0); MEAN CORPUSCULAR HGB CONC 32.3 g/dl (32.0-37.0); MEAN CORPUSCULAR VOLUME 85.1 fl (82.0-101.0); MONOCYTES % 7.3 % (0.0-11.0); NEUTROPHIL # 7.3 10^3/ul (1.6-7.5); NEUTROPHILS % 54.7 % (39.0-77.0); PLATELET COUNT 487 10^3/UL (140-415); RED BLOOD COUNT 3.56 10^6/ul (4.70-6.10); RED CELL DISTRIBUTION WIDTH 17.1 % (11.5-14.5)
[2018-09-02 04:45] LABS: WHITE BLOOD COUNT 13.4 10^3/ul (4.8-10.8)
[2018-09-02] MEDS: SOD CHLORIDE 0.9% 1,000 ML IV ×2 (04:56→14:58)
[2018-09-02 05:06] LABS: ALANINE AMINOTRANSFERASE 12 IU/L (13-69); ALBUMIN 1.9 g/dl (3.3-4.9); ALBUMIN/GLOBULIN RATIO 0.67; ALKALINE PHOSPHATASE 121 IU/L (42-121); ANION GAP 0 (5-13); ASPARTATE AMINO TRANSFERASE 13 IU/L (15-46); BLOOD UREA NITROGEN 28 mg/dl (7-20); CALCIUM 7.8 mg/dl (8.4-10.2); CARBON DIOXIDE 17 mmol/L (21-31); CHLORIDE 122 mmol/L (97-110); Estimated GFR 21 mL/min (>60); GLUCOSE 141 mg/dl (70-220); MAGNESIUM 1.8 mg/dl (1.7-2.5); POTASSIUM 3.3 mmol/L (3.5-5.1); SODIUM 139 mmol/L (135-144); TOTAL PROTEIN 4.7 g/dl (6.1-8.1)
[2018-09-02] MEDS: HEPARIN 5,000 UNIT/1 ML VIAL SC ×3 (05:46→21:49)
[2018-09-02] MEDS: HYDROmorphONE 1 MG/ML SYG IV ×2 (05:52→13:27)
[2018-09-02] MEDS: LORAZEPAM 2 MG INJ IV ×3 (05:52→21:55)
[2018-09-02] MEDS ORDERED: OSELTAMIVIR 75 MG CAP PO (13:30)
[2018-09-02] MEDS: OSELTAMIVIR 30 MG CAP PO (14:51)
[2018-09-02] MEDS: HYDROmorphONE 2 MG/ML SYG IV (19:07)
[2018-09-02] MEDS: ACETAMINOPHEN 325 MG TAB PO (21:55)
[2018-09-03] MEDS: HYDROmorphONE 2 MG/ML SYG IV ×6 (03:00→23:02)
[2018-09-03] MEDS: SOD CHLORIDE 0.9% 1,000 ML IV ×2 (03:10→15:04)
[2018-09-03] MEDS: HEPARIN 5,000 UNIT/1 ML VIAL SC ×3 (05:49→21:38)
[2018-09-03 05:52] LABS: ADD MAN DIFF? NO
[2018-09-03 06:13] LABS: ANION GAP 5 (5-13); BLOOD UREA NITROGEN 27 mg/dl (7-20); CALCIUM 8.1 mg/dl (8.4-10.2); CARBON DIOXIDE 15 mmol/L (21-31); CHLORIDE 122 mmol/L (97-110); Estimated GFR 22 mL/min (>60); GLUCOSE 89 mg/dl (70-220); POTASSIUM 3.6 mmol/L (3.5-5.1); SODIUM 142 mmol/L (135-144)
[2018-09-03 06:46] LABS: BASOPHIL # 0.1 10^3/ul (0.0-0.1); BASOPHILS % 0.8 % (0.0-2.0); EOSINOPHILS # 0.6 10^3/ul (0.0-0.5); EOSINOPHILS % 6.1 % (0.0-7.0); HEMATOCRIT 30.4 % (42.0-52.0); HEMOGLOBIN 9.8 g/dl (14.0-18.0); LYMPHOCYTES # 2.5 10^3/ul (0.8-2.9); LYMPHOCYTES % 26.6 % (15.0-51.0); MEAN CORPUSCULAR HEMOGLOBIN 27.8 pg (29.0-33.0); MEAN CORPUSCULAR HGB CONC 32.2 g/dl (32.0-37.0); MEAN CORPUSCULAR VOLUME 86.1 fl (82.0-101.0); MEAN PLATELET VOLUME 8.3 fl (7.4-10.4); MONOCYTE # 0.7 10^3/ul (0.3-0.9); NEUTROPHIL # 5.1 10^3/ul (1.6-7.5); NEUTROPHILS % 54.6 % (39.0-77.0); PLATELET COUNT 460 10^3/UL (140-415); RED BLOOD COUNT 3.53 10^6/ul (4.70-6.10); RED CELL DISTRIBUTION WIDTH 17.5 % (11.5-14.5)
[2018-09-03 06:46] LABS: WHITE BLOOD COUNT 9.3 10^3/ul (4.8-10.8)
[2018-09-03] MEDS: OSELTAMIVIR 30 MG CAP PO (08:38)
[2018-09-03] MEDS ORDERED: COLLAGENASE 5 GM (UD JAR) TOP (09:57)
[2018-09-03] MEDS: LORAZEPAM 2 MG INJ IV ×2 (10:47→23:02)
[2018-09-03] MEDS ORDERED: GLUCAGON 1 MG INJ IM (16:00)
[2018-09-03] MEDS ORDERED: DEXTROSE 50% 50 ML SYRINGE IV (16:00)
[2018-09-03] MEDS ORDERED: ACETAMINOPHEN 325 MG TAB PO (16:00)
[2018-09-03] MEDS ORDERED: GLUCOSE GEL 15 GRAM TUBE BUCCAL (16:00)
[2018-09-03] MEDS ORDERED: GLUCOSE GEL 15 GRAM TUBE PO (16:00)
[2018-09-03] MEDS: ATENOLOL 25 MG TAB PO ×2 (16:40→23:02)
[2018-09-03 17:03] LABS: FREE T4 (FREE THYROXINE) 1.16 ng/dl (0.64-1.79)
[2018-09-03] MEDS: MAGNESIUM OXIDE 400 MG TAB PO (20:42)
[2018-09-03] MEDS: traZODone 50 MG TAB PO (20:42)
[2018-09-03] MEDS: LORAZEPAM 0.5 MG TAB PO (20:42)
[2018-09-03] MEDS: METHADONE 10 MG TAB PO (20:43)
[2018-09-03] MEDS ORDERED: PROPRANOLOL 10 MG TAB PO (21:00)
[2018-09-03] MEDS: INSULIN GLARGINE [LANTus] (100 UNITS/ML) SYG SC (21:08)
[2018-09-04] MEDS: CASPOFUNGIN 70 MG in NS 250 ML IVPB (00:13)
[2018-09-04] MEDS: SOD CHLORIDE 0.9% 1,000 ML IV ×3 (03:59→17:30)
[2018-09-04] MEDS: HYDROmorphONE 2 MG/ML SYG IV ×4 (04:43→23:08)
[2018-09-04] MEDS: HEPARIN 5,000 UNIT/1 ML VIAL SC ×3 (06:11→21:33)
[2018-09-04 06:38] LABS: ADD MAN DIFF? NO
[2018-09-04 06:42] LABS: BASOPHIL # 0.1 10^3/ul (0.0-0.1); BASOPHILS % 0.8 % (0.0-2.0); EOSINOPHILS # 0.5 10^3/ul (0.0-0.5); EOSINOPHILS % 5.9 % (0.0-7.0); HEMATOCRIT 27.3 % (42.0-52.0); HEMOGLOBIN 8.7 g/dl (14.0-18.0); LYMPHOCYTES # 2.9 10^3/ul (0.8-2.9); LYMPHOCYTES % 33.4 % (15.0-51.0); MEAN CORPUSCULAR HEMOGLOBIN 28.1 pg (29.0-33.0); MEAN CORPUSCULAR HGB CONC 31.9 g/dl (32.0-37.0); MEAN CORPUSCULAR VOLUME 88.1 fl (82.0-101.0); MEAN PLATELET VOLUME 8.4 fl (7.4-10.4); MONOCYTE # 0.8 10^3/ul (0.3-0.9); MONOCYTES % 8.9 % (0.0-11.0); NEUTROPHIL # 4.2 10^3/ul (1.6-7.5); NEUTROPHILS % 49.5 % (39.0-77.0); PLATELET COUNT 380 10^3/UL (140-415)
[2018-09-04 06:42] LABS: WHITE BLOOD COUNT 8.5 10^3/ul (4.8-10.8)
[2018-09-04] MEDS: LEVOTHYROXINE 50 MCG TAB PO (06:55)
[2018-09-04 07:06] LABS: ANION GAP 5 (5-13); BLOOD UREA NITROGEN 27 mg/dl (7-20); CARBON DIOXIDE 15 mmol/L (21-31); CHLORIDE 122 mmol/L (97-110); Estimated GFR 22 mL/min (>60); GLUCOSE 82 mg/dl (70-220); SODIUM 142 mmol/L (135-144)
[2018-09-04] MEDS: MAGNESIUM HYDROXIDE 30ML CUP PO (09:00)
[2018-09-04] MEDS: ZINC SULFATE 220 MG CAP PO (09:50)
[2018-09-04] MEDS: MAGNESIUM OXIDE 400 MG TAB PO ×2 (09:51→20:17)
[2018-09-04] MEDS: DOCUSATE SODIUM 100 MG CAP PO (09:51)
[2018-09-04] MEDS: ATENOLOL 25 MG TAB PO ×2 (09:52→20:12)
[2018-09-04] MEDS: OSELTAMIVIR 30 MG CAP PO (09:53)
[2018-09-04] MEDS: POTASSIUM CHLORIDE 20 MEQ POWDER FOR ORAL SOLN PO (12:42)
[2018-09-04] MEDS: SODIUM HYPOCHLORITE (1/40) 1 LITER BTL IRR (17:40)
[2018-09-04] MEDS: COLLAGENASE 5 GM (UD JAR) TOP (17:45)
[2018-09-04] MEDS: DOXYCYCLINE 100 MG TAB PO (20:17)
[2018-09-04] MEDS: traZODone 50 MG TAB PO (20:17)
[2018-09-04] MEDS: INSULIN GLARGINE [LANTus] (100 UNITS/ML) SYG SC (21:00)
[2018-09-04] MEDS: ALTEPLASE (CATHFLO) 2 MG INJ CATHETER (22:25)
[2018-09-04] MEDS: CASPOFUNGIN 50 MG in SOD CHLORIDE 0.9% 250 ML IVPB (23:52)
[2018-09-05] MEDS: HYDROmorphONE 2 MG/ML SYG IV ×5 (03:12→22:01)
[2018-09-05 05:52] LABS: ADD MAN DIFF? NO
[2018-09-05 06:05] LABS: BASOPHIL # 0.1 10^3/ul (0.0-0.1); BASOPHILS % 0.5 % (0.0-2.0); EOSINOPHILS # 0.6 10^3/ul (0.0-0.5); HEMATOCRIT 24.2 % (42.0-52.0); HEMOGLOBIN 7.6 g/dl (14.0-18.0); LYMPHOCYTES # 3.1 10^3/ul (0.8-2.9); MEAN CORPUSCULAR HEMOGLOBIN 27.8 pg (29.0-33.0); MEAN CORPUSCULAR HGB CONC 31.4 g/dl (32.0-37.0); MEAN CORPUSCULAR VOLUME 88.6 fl (82.0-101.0); MEAN PLATELET VOLUME 8.5 fl (7.4-10.4); MONOCYTES % 7.7 % (0.0-11.0); NEUTROPHIL # 7.9 10^3/ul (1.6-7.5); NEUTROPHILS % 61.4 % (39.0-77.0); PLATELET COUNT 398 10^3/UL (140-415); RED BLOOD COUNT 2.73 10^6/ul (4.70-6.10); RED CELL DISTRIBUTION WIDTH 17.5 % (11.5-14.5)
[2018-09-05 06:05] LABS: WHITE BLOOD COUNT 12.9 10^3/ul (4.8-10.8)
[2018-09-05] MEDS: LEVOTHYROXINE 50 MCG TAB PO (06:33)
[2018-09-05] MEDS: SOD CHLORIDE 0.9% 1,000 ML IV (06:38)
[2018-09-05] MEDS: HEPARIN 5,000 UNIT/1 ML VIAL SC ×3 (06:46→21:32)
[2018-09-05 07:03] LABS: ANION GAP 3 (5-13); BLOOD UREA NITROGEN 27 mg/dl (7-20); CALCIUM 7.5 mg/dl (8.4-10.2); CARBON DIOXIDE 16 mmol/L (21-31); CHLORIDE 119 mmol/L (97-110); CREATININE 2.72 mg/dl (0.61-1.24); Estimated GFR 25 mL/min (>60); GLUCOSE 113 mg/dl (70-220); POTASSIUM 3.2 mmol/L (3.5-5.1); SODIUM 138 mmol/L (135-144)
[2018-09-05] MEDS: SODIUM HYPOCHLORITE (1/40) 1 LITER BTL IRR (08:43)
[2018-09-05] MEDS: COLLAGENASE 5 GM (UD JAR) TOP (08:44)
[2018-09-05] MEDS: OSELTAMIVIR 30 MG CAP PO (08:44)
[2018-09-05] MEDS: DOXYCYCLINE 100 MG TAB PO ×2 (08:44→21:21)
[2018-09-05] MEDS: ATENOLOL 25 MG TAB PO ×2 (08:44→21:00)
[2018-09-05] MEDS: ZINC SULFATE 220 MG CAP PO (08:44)
[2018-09-05] MEDS: MAGNESIUM HYDROXIDE 30ML CUP PO (08:44)
[2018-09-05] MEDS: DOCUSATE SODIUM 100 MG CAP PO (08:44)
[2018-09-05] MEDS: MAGNESIUM OXIDE 400 MG TAB PO ×2 (08:44→21:21)
[2018-09-05] MEDS: LORAZEPAM 0.5 MG TAB PO (08:44)
[2018-09-05] MEDS: CITRIC ACID/NA CITRATE 30 ML CUP PO ×2 (13:17→21:19)
[2018-09-05] MEDS: POTASSIUM CHLORIDE (SR) 20 MEQ TAB PO (13:18)
[2018-09-05] MEDS: METHADONE 10 MG TAB PO (14:24)
[2018-09-05] MEDS: traZODone 50 MG TAB PO (21:21)
[2018-09-05] MEDS: ALBUTEROL/IPRATROPIUM (NEB) 3 ML AMP HHN (21:25)
[2018-09-05] MEDS: INSULIN GLARGINE [LANTus] (100 UNITS/ML) SYG SC (21:39)
[2018-09-06] MEDS: CASPOFUNGIN 50 MG in SOD CHLORIDE 0.9% 250 ML IVPB (00:42)
[2018-09-06] MEDS: HYDROmorphONE 2 MG/ML SYG IV ×5 (02:55→23:34)
[2018-09-06] MEDS: METHADONE 10 MG TAB PO (05:43)
[2018-09-06] MEDS: HEPARIN 5,000 UNIT/1 ML VIAL SC ×3 (06:05→21:12)
[2018-09-06 06:28] LABS: ADD MAN DIFF? NO
[2018-09-06 06:33] LABS: BASOPHIL # 0.1 10^3/ul (0.0-0.1); BASOPHILS % 0.5 % (0.0-2.0); EOSINOPHILS # 0.6 10^3/ul (0.0-0.5); EOSINOPHILS % 4.5 % (0.0-7.0); HEMATOCRIT 22.5 % (42.0-52.0); HEMOGLOBIN 7.2 g/dl (14.0-18.0); LYMPHOCYTES % 31.1 % (15.0-51.0); MEAN CORPUSCULAR VOLUME 87.5 fl (82.0-101.0); MEAN PLATELET VOLUME 8.5 fl (7.4-10.4); MONOCYTES % 7.8 % (0.0-11.0); NEUTROPHILS % 54.1 % (39.0-77.0); PLATELET COUNT 368 10^3/UL (140-415); RED BLOOD COUNT 2.57 10^6/ul (4.70-6.10); RED CELL DISTRIBUTION WIDTH 17.8 % (11.5-14.5)
[2018-09-06 06:33] LABS: WHITE BLOOD COUNT 12.9 10^3/ul (4.8-10.8)
[2018-09-06 07:03] LABS: ANION GAP 2 (5-13); BLOOD UREA NITROGEN 29 mg/dl (7-20); CALCIUM 7.7 mg/dl (8.4-10.2); CARBON DIOXIDE 17 mmol/L (21-31); CHLORIDE 119 mmol/L (97-110); CREATININE 2.84 mg/dl (0.61-1.24); Estimated GFR 23 mL/min (>60); GLUCOSE 137 mg/dl (70-220); POTASSIUM 3.6 mmol/L (3.5-5.1); SODIUM 138 mmol/L (135-144)
[2018-09-06] MEDS: LEVOTHYROXINE 50 MCG TAB PO (07:19)
[2018-09-06] MEDS: DOCUSATE SODIUM 100 MG CAP PO (08:26)
[2018-09-06] MEDS: SODIUM HYPOCHLORITE (1/40) 1 LITER BTL IRR (08:26)
[2018-09-06] MEDS: COLLAGENASE 5 GM (UD JAR) TOP (08:26)
[2018-09-06] MEDS: DOXYCYCLINE 100 MG TAB PO ×2 (08:26→20:59)
[2018-09-06] MEDS: CITRIC ACID/NA CITRATE 30 ML CUP PO ×3 (08:26→21:01)
[2018-09-06] MEDS: ZINC SULFATE 220 MG CAP PO (08:26)
[2018-09-06] MEDS: OSELTAMIVIR 30 MG CAP PO (08:26)
[2018-09-06] MEDS: MAGNESIUM OXIDE 400 MG TAB PO ×2 (08:26→20:59)
[2018-09-06] MEDS: MAGNESIUM HYDROXIDE 30ML CUP PO (08:26)
[2018-09-06] MEDS: ATENOLOL 25 MG TAB PO ×2 (08:27→21:01)
[2018-09-06] MEDS: GUAIFENESIN/DM 5ML CUP PO ×2 (12:47→22:06)
[2018-09-06] MEDS: traZODone 50 MG TAB PO (20:59)
[2018-09-06] MEDS: INSULIN GLARGINE [LANTus] (100 UNITS/ML) SYG SC (21:12)
[2018-09-07] MEDS: CASPOFUNGIN 50 MG in SOD CHLORIDE 0.9% 250 ML IVPB ×2 (00:42→23:37)
[2018-09-07] MEDS: HYDROmorphONE 2 MG/ML SYG IV ×4 (05:40→21:38)
[2018-09-07] MEDS: HEPARIN 5,000 UNIT/1 ML VIAL SC ×2 (05:49→13:47)
[2018-09-07 06:31] LABS: ADD MAN DIFF? NO
[2018-09-07 06:32] LABS: BASOPHIL # 0.1 10^3/ul (0.0-0.1); BASOPHILS % 0.6 % (0.0-2.0); EOSINOPHILS # 0.6 10^3/ul (0.0-0.5); EOSINOPHILS % 5.5 % (0.0-7.0); HEMATOCRIT 26.1 % (42.0-52.0); HEMOGLOBIN 8.4 g/dl (14.0-18.0); LYMPHOCYTES # 4.2 10^3/ul (0.8-2.9); LYMPHOCYTES % 38.5 % (15.0-51.0); MEAN CORPUSCULAR HEMOGLOBIN 27.6 pg (29.0-33.0); MEAN CORPUSCULAR HGB CONC 32.2 g/dl (32.0-37.0); MEAN CORPUSCULAR VOLUME 85.9 fl (82.0-101.0); MEAN PLATELET VOLUME 10.1 fl (7.4-10.4); MONOCYTE # 0.8 10^3/ul (0.3-0.9); MONOCYTES % 6.9 % (0.0-11.0); NEUTROPHIL # 5.1 10^3/ul (1.6-7.5); NEUTROPHILS % 46.5 % (39.0-77.0); POSITIVE DIFF @See below; RED BLOOD COUNT 3.04 10^6/ul (4.70-6.10); RED CELL DISTRIBUTION WIDTH 17.6 % (11.5-14.5)
[2018-09-07 06:38] LABS: PLATELET COUNT 284 10^3/UL (140-415)
[2018-09-07] MEDS: LEVOTHYROXINE 50 MCG TAB PO (06:51)
[2018-09-07 06:58] LABS: ANION GAP 3 (5-13); BLOOD UREA NITROGEN 31 mg/dl (7-20); CALCIUM 8.2 mg/dl (8.4-10.2); CARBON DIOXIDE 18 mmol/L (21-31); CHLORIDE 116 mmol/L (97-110); CREATININE 2.55 mg/dl (0.61-1.24); Estimated GFR 27 mL/min (>60); GLUCOSE 104 mg/dl (70-220); POTASSIUM 3.6 mmol/L (3.5-5.1); SODIUM 137 mmol/L (135-144)
[2018-09-07] MEDS: MAGNESIUM HYDROXIDE 30ML CUP PO (09:00)
[2018-09-07] MEDS: ATENOLOL 25 MG TAB PO ×2 (09:00→20:43)
[2018-09-07] MEDS: COLLAGENASE 5 GM (UD JAR) TOP ×2 (09:00→15:05)
[2018-09-07] MEDS: SODIUM HYPOCHLORITE (1/40) 1 LITER BTL IRR ×2 (09:00→15:06)
[2018-09-07] MEDS: CITRIC ACID/NA CITRATE 30 ML CUP PO ×3 (09:20→20:42)
[2018-09-07] MEDS: DOXYCYCLINE 100 MG TAB PO ×2 (09:20→20:42)
[2018-09-07] MEDS: DOCUSATE SODIUM 100 MG CAP PO (09:21)
[2018-09-07] MEDS: MAGNESIUM OXIDE 400 MG TAB PO ×2 (09:21→20:42)
[2018-09-07] MEDS: ZINC SULFATE 220 MG CAP PO (09:21)
[2018-09-07] MEDS: SILVER NITRATE SWAB TOP (11:00)
[2018-09-07] MEDS: GUAIFENESIN/DM 5ML CUP PO (13:40)
[2018-09-07] MEDS: METHADONE 10 MG TAB PO (13:41)
[2018-09-07] MEDS: DIPHENHYDRAMINE 25 MG CAP PO (14:52)
[2018-09-07] MEDS: traZODone 50 MG TAB PO (20:42)
[2018-09-07] MEDS: INSULIN GLARGINE [LANTus] (100 UNITS/ML) SYG SC (20:53)
[2018-09-08] MEDS: SOD CHLORIDE 0.9% 250 ML IV (00:49)
[2018-09-08] MEDS: GUAIFENESIN/DM 5ML CUP PO (01:23)
[2018-09-08] MEDS: ALBUTEROL/IPRATROPIUM (NEB) 3 ML AMP HHN ×2 (01:57→13:28)
[2018-09-08] MEDS: HYDROmorphONE 2 MG/ML SYG IV ×4 (04:11→22:10)
[2018-09-08 05:26] LABS: ADD MAN DIFF? NO
[2018-09-08 05:42] LABS: BASOPHIL # 0.1 10^3/ul (0.0-0.1); BASOPHILS % 0.6 % (0.0-2.0); EOSINOPHILS # 0.7 10^3/ul (0.0-0.5); EOSINOPHILS % 5.9 % (0.0-7.0); HEMATOCRIT 25.1 % (42.0-52.0); HEMOGLOBIN 8.3 g/dl (14.0-18.0); LYMPHOCYTES # 4.2 10^3/ul (0.8-2.9); LYMPHOCYTES % 33.4 % (15.0-51.0); MEAN CORPUSCULAR HEMOGLOBIN 28.4 pg (29.0-33.0); MEAN CORPUSCULAR HGB CONC 33.1 g/dl (32.0-37.0); MEAN PLATELET VOLUME 8.5 fl (7.4-10.4); MONOCYTE # 0.8 10^3/ul (0.3-0.9); MONOCYTES % 6.6 % (0.0-11.0); NEUTROPHIL # 6.3 10^3/ul (1.6-7.5); NEUTROPHILS % 50.3 % (39.0-77.0); PLATELET COUNT 265 10^3/UL (140-415); RED BLOOD COUNT 2.92 10^6/ul (4.70-6.10); RED CELL DISTRIBUTION WIDTH 17.4 % (11.5-14.5)
[2018-09-08 05:42] LABS: WHITE BLOOD COUNT 12.5 10^3/ul (4.8-10.8)
[2018-09-08] MEDS: LEVOTHYROXINE 50 MCG TAB PO (06:01)
[2018-09-08 06:18] LABS: ANION GAP 4 (5-13); BLOOD UREA NITROGEN 41 mg/dl (7-20); CALCIUM 7.9 mg/dl (8.4-10.2); CARBON DIOXIDE 19 mmol/L (21-31); CHLORIDE 113 mmol/L (97-110); CREATININE 2.78 mg/dl (0.61-1.24); Estimated GFR 24 mL/min (>60); GLUCOSE 112 mg/dl (70-220); POTASSIUM 3.2 mmol/L (3.5-5.1); SODIUM 136 mmol/L (135-144)
[2018-09-08] MEDS: ATENOLOL 25 MG TAB PO ×2 (09:00→20:52)
[2018-09-08] MEDS: DOCUSATE SODIUM 100 MG CAP PO (09:29)
[2018-09-08] MEDS: DOXYCYCLINE 100 MG TAB PO ×2 (09:29→20:49)
[2018-09-08] MEDS: ZINC SULFATE 220 MG CAP PO (09:29)
[2018-09-08] MEDS: MAGNESIUM HYDROXIDE 30ML CUP PO (09:29)
[2018-09-08] MEDS: COLLAGENASE 5 GM (UD JAR) TOP (09:29)
[2018-09-08] MEDS: MAGNESIUM OXIDE 400 MG TAB PO ×2 (09:29→20:49)
[2018-09-08] MEDS: CITRIC ACID/NA CITRATE 30 ML CUP PO ×3 (09:29→20:49)
[2018-09-08] MEDS: SODIUM HYPOCHLORITE (1/40) 1 LITER BTL IRR (11:00)
[2018-09-08] MEDS: LIDOCAINE 1%/EPI 30 ML INJ INJ (11:00)
[2018-09-08 20:45] LABS: HEMOGLOBIN A1C 5.8 % (0-5.9)
[2018-09-08] MEDS: CLOTRIMAZOLE 1% 30 GM CR TOP (20:49)
[2018-09-08] MEDS: traZODone 50 MG TAB PO (20:49)
[2018-09-08] MEDS: INSULIN GLARGINE [LANTus] (100 UNITS/ML) SYG SC (21:23)
[2018-09-09] MEDS: CASPOFUNGIN 50 MG in SOD CHLORIDE 0.9% 250 ML IVPB (03:01)
[2018-09-09] MEDS: HYDROmorphONE 2 MG/ML SYG IV ×5 (03:02→21:39)
[2018-09-09] MEDS: POTASSIUM CHLORIDE (SR) 20 MEQ TAB PO (03:02)
[2018-09-09] MEDS: LEVOTHYROXINE 50 MCG TAB PO (06:57)
[2018-09-09] MEDS: CITRIC ACID/NA CITRATE 30 ML CUP PO ×3 (08:50→20:49)
[2018-09-09] MEDS: SODIUM HYPOCHLORITE (1/40) 1 LITER BTL IRR (08:50)
[2018-09-09] MEDS: DOCUSATE SODIUM 100 MG CAP PO (08:50)
[2018-09-09] MEDS: CLOTRIMAZOLE 1% 30 GM CR TOP ×2 (08:51→20:58)
[2018-09-09] MEDS: MAGNESIUM OXIDE 400 MG TAB PO ×2 (08:51→20:50)
[2018-09-09] MEDS: MAGNESIUM HYDROXIDE 30ML CUP PO (08:51)
[2018-09-09] MEDS: ZINC SULFATE 220 MG CAP PO (08:51)
[2018-09-09] MEDS: COLLAGENASE 5 GM (UD JAR) TOP ×2 (08:52)
[2018-09-09] MEDS: ATENOLOL 25 MG TAB PO ×2 (08:53→20:51)
[2018-09-09] MEDS: DOXYCYCLINE 100 MG TAB PO ×2 (08:53→21:00)
[2018-09-09] MEDS: GUAIFENESIN/DM 5ML CUP PO ×2 (09:08→13:44)
[2018-09-09 11:09] LABS: ADD MAN DIFF? NO
[2018-09-09 11:21] LABS: BASOPHIL # 0.1 10^3/ul (0.0-0.1); BASOPHILS % 0.6 % (0.0-2.0); EOSINOPHILS # 0.8 10^3/ul (0.0-0.5); EOSINOPHILS % 5.8 % (0.0-7.0); HEMATOCRIT 26.7 % (42.0-52.0); HEMOGLOBIN 8.6 g/dl (14.0-18.0); LYMPHOCYTES # 2.9 10^3/ul (0.8-2.9); LYMPHOCYTES % 22.8 % (15.0-51.0); MEAN CORPUSCULAR HEMOGLOBIN 27.6 pg (29.0-33.0); MEAN CORPUSCULAR HGB CONC 32.2 g/dl (32.0-37.0); MEAN CORPUSCULAR VOLUME 85.6 fl (82.0-101.0); MEAN PLATELET VOLUME 8.7 fl (7.4-10.4); MONOCYTE # 1.1 10^3/ul (0.3-0.9); MONOCYTES % 8.6 % (0.0-11.0); NEUTROPHIL # 7.6 10^3/ul (1.6-7.5); NEUTROPHILS % 59.5 % (39.0-77.0); PLATELET COUNT 250 10^3/UL (140-415); RED BLOOD COUNT 3.12 10^6/ul (4.70-6.10); RED CELL DISTRIBUTION WIDTH 17.8 % (11.5-14.5)
[2018-09-09 11:21] LABS: WHITE BLOOD COUNT 12.8 10^3/ul (4.8-10.8)
[2018-09-09 11:33] LABS: ANION GAP 3 (5-13); BLOOD UREA NITROGEN 44 mg/dl (7-20); CALCIUM 8.5 mg/dl (8.4-10.2); CARBON DIOXIDE 22 mmol/L (21-31); CHLORIDE 111 mmol/L (97-110); Estimated GFR 22 mL/min (>60); GLUCOSE 141 mg/dl (70-220); SODIUM 136 mmol/L (135-144)
[2018-09-09] MEDS: LIDOCAINE 1% (MPF) 5 ML VIAL SC (12:30)
[2018-09-09] MEDS: D5W + KCL 20 MEQ 1,000 ML IV (13:24)
[2018-09-09] MEDS: HEPARIN 5,000 UNIT/1 ML VIAL SC ×2 (13:48→21:47)
[2018-09-09] MEDS: traZODone 50 MG TAB PO (20:50)
[2018-09-09] MEDS: INSULIN GLARGINE [LANTus] (100 UNITS/ML) SYG SC (20:57)
[2018-09-09] MEDS: ALBUTEROL/IPRATROPIUM (NEB) 3 ML AMP HHN (21:59)
[2018-09-09] MEDS ORDERED: SOD CHLORIDE 0.9% 1,000 ML IV (23:14)
[2018-09-09] MEDS ORDERED: OSELTAMIVIR 30 MG CAP PO (23:30)
[2018-09-09] MEDS: SOD CHLORIDE 0.9% 500 ML IV (23:31)
[2018-09-09] MEDS: LORAZEPAM 2 MG INJ IV (23:31)
[2018-09-10] MEDS: D5W + KCL 20 MEQ 1,000 ML IV ×2 (00:48→06:24)
[2018-09-10] MEDS: CASPOFUNGIN 50 MG in SOD CHLORIDE 0.9% 250 ML IVPB ×2 (01:07→23:50)
[2018-09-10 06:04] LABS: ADD MAN DIFF? NO
[2018-09-10 06:15] LABS: BASOPHIL # 0.1 10^3/ul (0.0-0.1); BASOPHILS % 0.4 % (0.0-2.0); EOSINOPHILS # 0.8 10^3/ul (0.0-0.5); EOSINOPHILS % 5.7 % (0.0-7.0); HEMATOCRIT 26.6 % (42.0-52.0); HEMOGLOBIN 8.6 g/dl (14.0-18.0); LYMPHOCYTES # 3.3 10^3/ul (0.8-2.9); LYMPHOCYTES % 24.5 % (15.0-51.0); MEAN CORPUSCULAR HEMOGLOBIN 27.7 pg (29.0-33.0); MEAN CORPUSCULAR HGB CONC 32.3 g/dl (32.0-37.0); MEAN CORPUSCULAR VOLUME 85.8 fl (82.0-101.0); MEAN PLATELET VOLUME 9.2 fl (7.4-10.4); MONOCYTE # 0.9 10^3/ul (0.3-0.9); MONOCYTES % 6.7 % (0.0-11.0); NEUTROPHIL # 8.2 10^3/ul (1.6-7.5); NEUTROPHILS % 60.3 % (39.0-77.0); NUCLEATED RED BLOOD CELLS% 0.1 /100WBC (0.0-0.0); PLATELET COUNT 257 10^3/UL (140-415); RED CELL DISTRIBUTION WIDTH 17.7 % (11.5-14.5)
[2018-09-10 06:15] LABS: WHITE BLOOD COUNT 13.5 10^3/ul (4.8-10.8)
[2018-09-10 06:24] LABS: INR 0.95; PROTIME 12.8 Sec (11.9-14.9)
[2018-09-10] MEDS: HEPARIN 5,000 UNIT/1 ML VIAL SC ×3 (06:24→22:06)
[2018-09-10 06:25] LABS: ALANINE AMINOTRANSFERASE 6 IU/L (13-69); ALBUMIN 1.7 g/dl (3.3-4.9); ALBUMIN/GLOBULIN RATIO 0.68; ALKALINE PHOSPHATASE 102 IU/L (42-121); ANION GAP 5 (5-13); ASPARTATE AMINO TRANSFERASE 11 IU/L (15-46); BLOOD UREA NITROGEN 39 mg/dl (7-20); CALCIUM 8.2 mg/dl (8.4-10.2); CARBON DIOXIDE 22 mmol/L (21-31); CHLORIDE 107 mmol/L (97-110); CREATININE 2.63 mg/dl (0.61-1.24); Estimated GFR 26 mL/min (>60); GLUCOSE 148 mg/dl (70-220); PARTIAL THROMBOPLASTIN TIME 38.6 Sec (23.0-35.0); POTASSIUM 3.9 mmol/L (3.5-5.1); SODIUM 134 mmol/L (135-144); TOTAL PROTEIN 4.2 g/dl (6.1-8.1)
[2018-09-10] MEDS: LEVOTHYROXINE 50 MCG TAB PO (06:30)
[2018-09-10] MEDS: ATENOLOL 25 MG TAB PO ×2 (09:00→21:00)
[2018-09-10] MEDS: SODIUM HYPOCHLORITE (1/40) 1 LITER BTL IRR (09:57)
[2018-09-10] MEDS: MAGNESIUM HYDROXIDE 30ML CUP PO (09:57)
[2018-09-10] MEDS: COLLAGENASE 5 GM (UD JAR) TOP ×2 (09:57→09:59)
[2018-09-10] MEDS: CITRIC ACID/NA CITRATE 30 ML CUP PO ×3 (09:57→22:04)
[2018-09-10] MEDS: DOCUSATE SODIUM 100 MG CAP PO (09:58)
[2018-09-10] MEDS: LORAZEPAM 0.5 MG TAB PO (09:58)
[2018-09-10] MEDS: MAGNESIUM OXIDE 400 MG TAB PO ×2 (09:58→22:04)
[2018-09-10] MEDS: DOXYCYCLINE 100 MG TAB PO ×2 (09:58→22:04)
[2018-09-10] MEDS: CLOTRIMAZOLE 1% 30 GM CR TOP ×2 (09:59→22:04)
[2018-09-10] MEDS: ZINC SULFATE 220 MG CAP PO (09:59)
[2018-09-10] MEDS: ACETAMINOPHEN 325 MG TAB PO (13:39)
[2018-09-10] MEDS: HYDROmorphONE 2 MG/ML SYG IV (19:39)
[2018-09-10] MEDS: traZODone 50 MG TAB PO (22:04)
[2018-09-10] MEDS: INSULIN GLARGINE [LANTus] (100 UNITS/ML) SYG SC (22:07)
[2018-09-11] MEDS: HYDROmorphONE 2 MG/ML SYG IV ×4 (00:25→17:59)
[2018-09-11 05:57] LABS: ADD MAN DIFF? NO
[2018-09-11 06:10] LABS: WHITE BLOOD COUNT 13.9 10^3/ul (4.8-10.8)
[2018-09-11 06:10] LABS: BASOPHIL # 0.1 10^3/ul (0.0-0.1); BASOPHILS % 0.6 % (0.0-2.0); EOSINOPHILS # 0.8 10^3/ul (0.0-0.5); EOSINOPHILS % 5.7 % (0.0-7.0); HEMATOCRIT 24.1 % (42.0-52.0); HEMOGLOBIN 7.8 g/dl (14.0-18.0); LYMPHOCYTES % 21.7 % (15.0-51.0); MEAN CORPUSCULAR HEMOGLOBIN 27.9 pg (29.0-33.0); MEAN CORPUSCULAR HGB CONC 32.4 g/dl (32.0-37.0); MEAN CORPUSCULAR VOLUME 86.1 fl (82.0-101.0); MEAN PLATELET VOLUME 8.8 fl (7.4-10.4); MONOCYTE # 1.2 10^3/ul (0.3-0.9); MONOCYTES % 8.9 % (0.0-11.0); NEUTROPHIL # 8.6 10^3/ul (1.6-7.5); NEUTROPHILS % 61.5 % (39.0-77.0); PLATELET COUNT 270 10^3/UL (140-415); RED CELL DISTRIBUTION WIDTH 17.8 % (11.5-14.5)
[2018-09-11] MEDS: LEVOTHYROXINE 50 MCG TAB PO (06:18)
[2018-09-11] MEDS: HEPARIN 5,000 UNIT/1 ML VIAL SC ×3 (06:20→22:35)
[2018-09-11 06:37] LABS: ANION GAP 4 (5-13); BLOOD UREA NITROGEN 40 mg/dl (7-20); CALCIUM 8.1 mg/dl (8.4-10.2); CARBON DIOXIDE 22 mmol/L (21-31); CHLORIDE 107 mmol/L (97-110); CREATININE 2.71 mg/dl (0.61-1.24); Estimated GFR 25 mL/min (>60); GLUCOSE 85 mg/dl (70-220); POTASSIUM 3.6 mmol/L (3.5-5.1); SODIUM 133 mmol/L (135-144)
[2018-09-11] MEDS: CITRIC ACID/NA CITRATE 30 ML CUP PO ×3 (09:20→21:26)
[2018-09-11] MEDS: COLLAGENASE 5 GM (UD JAR) TOP ×2 (09:20)
[2018-09-11] MEDS: SODIUM HYPOCHLORITE (1/40) 1 LITER BTL IRR (09:20)
[2018-09-11] MEDS: ATENOLOL 25 MG TAB PO ×2 (09:21→21:00)
[2018-09-11] MEDS: MAGNESIUM HYDROXIDE 30ML CUP PO (09:21)
[2018-09-11] MEDS: DOCUSATE SODIUM 100 MG CAP PO (09:21)
[2018-09-11] MEDS: DOXYCYCLINE 100 MG TAB PO ×2 (09:21→21:26)
[2018-09-11] MEDS: MAGNESIUM OXIDE 400 MG TAB PO ×2 (09:21→21:26)
[2018-09-11] MEDS: ZINC SULFATE 220 MG CAP PO (09:22)
[2018-09-11] MEDS: CLOTRIMAZOLE 1% 30 GM CR TOP ×2 (09:26→21:26)
[2018-09-11] MEDS: GUAIFENESIN/DM 5ML CUP PO ×2 (09:32→19:39)
[2018-09-11] MEDS: ALBUTEROL/IPRATROPIUM (NEB) 3 ML AMP HHN ×2 (10:32→23:17)
[2018-09-11] MEDS: ONDANSETRON 4 MG INJ IV (15:08)
[2018-09-11 15:24] LABS: ADD UMIC YES; UR ASCORBIC ACID NEGATIVE (NEGATIVE); UR BILIRUBIN (Dip) NEGATIVE (NEGATIVE); UR BLOOD (Dip) NEGATIVE (NEGATIVE); UR CLARITY CLEAR (CLEAR); UR COLOR STRAW (YELLOW); UR GLUCOSE (Dip) 3+ mg/dL (NEGATIVE); UR KETONES (Dip) NEGATIVE (NEGATIVE); UR LEUKOCYTE ESTERASE (Dip) NEGATIVE Leu/ul (NEGATIVE); UR MUCUS FEW /HPF (NONE SEEN); UR NITRITE (Dip) NEGATIVE (NEGATIVE); UR RBC 11 /HPF (0-5); UR SPECIFIC GRAVITY (Dip) 1.013 (1.003-1.030); UR TOTAL PROTEIN (Dip) 3+ mg/dl (NEGATIVE); UR UROBILINOGEN (Dip) NEGATIVE (NEGATIVE); UR WBC 12 /HPF (0-5)
[2018-09-11 15:42] LABS: LACTIC ACID 0.9 mmol/L (0.5-2.0)
[2018-09-11] MEDS: traZODone 50 MG TAB PO (21:26)
[2018-09-11] MEDS: INSULIN GLARGINE [LANTus] (100 UNITS/ML) SYG SC (22:35)
[2018-09-12] MEDS: SOD CHLORIDE 0.9% 250 ML IV (00:03)
[2018-09-12] MEDS: CASPOFUNGIN 50 MG in SOD CHLORIDE 0.9% 250 ML IVPB (01:29)
[2018-09-12] MEDS: CYCLOBENZAPRINE 10 MG TAB PO ×2 (05:41→14:13)
[2018-09-12] MEDS: HEPARIN 5,000 UNIT/1 ML VIAL SC ×3 (06:01→22:47)
[2018-09-12] MEDS: LEVOTHYROXINE 50 MCG TAB PO (06:01)
[2018-09-12 06:21] LABS: ADD MAN DIFF? NO
[2018-09-12 06:29] LABS: WHITE BLOOD COUNT 12.1 10^3/ul (4.8-10.8)
[2018-09-12 06:29] LABS: BASOPHIL # 0.1 10^3/ul (0.0-0.1); BASOPHILS % 0.6 % (0.0-2.0); EOSINOPHILS # 0.6 10^3/ul (0.0-0.5); EOSINOPHILS % 4.6 % (0.0-7.0); HEMATOCRIT 23.1 % (42.0-52.0); HEMOGLOBIN 7.4 g/dl (14.0-18.0); LYMPHOCYTES # 2.3 10^3/ul (0.8-2.9); LYMPHOCYTES % 19.2 % (15.0-51.0); MEAN CORPUSCULAR HEMOGLOBIN 27.7 pg (29.0-33.0); MEAN CORPUSCULAR VOLUME 86.5 fl (82.0-101.0); MEAN PLATELET VOLUME 8.9 fl (7.4-10.4); MONOCYTE # 1.1 10^3/ul (0.3-0.9); MONOCYTES % 9.2 % (0.0-11.0); NEUTROPHIL # 7.9 10^3/ul (1.6-7.5); NEUTROPHILS % 64.9 % (39.0-77.0); PLATELET COUNT 246 10^3/UL (140-415); RED BLOOD COUNT 2.67 10^6/ul (4.70-6.10); RED CELL DISTRIBUTION WIDTH 17.5 % (11.5-14.5)
[2018-09-12 07:03] LABS: ANION GAP 5 (5-13); BLOOD UREA NITROGEN 39 mg/dl (7-20); CARBON DIOXIDE 23 mmol/L (21-31); CHLORIDE 105 mmol/L (97-110); CREATININE 2.74 mg/dl (0.61-1.24); Estimated GFR 24 mL/min (>60); GLUCOSE 73 mg/dl (70-220); POTASSIUM 3.3 mmol/L (3.5-5.1); SODIUM 133 mmol/L (135-144)
[2018-09-12] MEDS: SOD CHLORIDE 0.9% 500 ML IV (08:20)
[2018-09-12] MEDS: COLLAGENASE 5 GM (UD JAR) TOP ×2 (10:19→10:20)
[2018-09-12] MEDS: ATENOLOL 25 MG TAB PO ×2 (10:20→20:44)
[2018-09-12] MEDS: ZINC SULFATE 220 MG CAP PO (10:20)
[2018-09-12] MEDS: CITRIC ACID/NA CITRATE 30 ML CUP PO ×3 (10:20→20:44)
[2018-09-12] MEDS: MAGNESIUM OXIDE 400 MG TAB PO ×2 (10:20→20:44)
[2018-09-12] MEDS: MAGNESIUM HYDROXIDE 30ML CUP PO (10:20)
[2018-09-12] MEDS: SODIUM HYPOCHLORITE (1/40) 1 LITER BTL IRR (10:20)
[2018-09-12] MEDS: DOXYCYCLINE 100 MG TAB PO ×2 (10:20→20:45)
[2018-09-12] MEDS: DOCUSATE SODIUM 100 MG CAP PO (10:20)
[2018-09-12] MEDS: CLOTRIMAZOLE 1% 30 GM CR TOP ×2 (10:23→20:45)
[2018-09-12] MEDS: SOD CHLORIDE 0.9% 1,000 ML IV (13:17)
[2018-09-12] MEDS: POTASSIUM CHLORIDE 100 ML IVPB (13:45)
[2018-09-12] MEDS: GUAIFENESIN/DM 5ML CUP PO (15:32)
[2018-09-12] MEDS: POTASSIUM CHLORIDE (SR) 20 MEQ TAB PO (17:49)
[2018-09-12] MEDS: EPOETIN 4000 UNITS/ML (NON ESRD/NON ONCOLOGY) SC (17:51)
[2018-09-12] MEDS: traZODone 50 MG TAB PO (20:45)
[2018-09-12] MEDS: HYDROmorphONE 2 MG/ML SYG IV (20:48)
[2018-09-12] MEDS: ALBUTEROL/IPRATROPIUM (NEB) 3 ML AMP HHN (21:39)
[2018-09-12] MEDS: INSULIN GLARGINE [LANTus] (100 UNITS/ML) SYG SC (21:41)
[2018-09-13] MEDS: CASPOFUNGIN 50 MG in SOD CHLORIDE 0.9% 250 ML IVPB (00:30)
[2018-09-13] MEDS: MIDODRINE 5 MG TAB PO ×4 (02:22→16:14)
[2018-09-13] MEDS: LORAZEPAM 2 MG INJ IV ×2 (03:32→22:53)
[2018-09-13 06:10] LABS: ADD MAN DIFF? NO
[2018-09-13 06:19] LABS: BASOPHIL # 0.1 10^3/ul (0.0-0.1); BASOPHILS % 0.5 % (0.0-2.0); EOSINOPHILS # 0.5 10^3/ul (0.0-0.5); EOSINOPHILS % 3.9 % (0.0-7.0); HEMATOCRIT 22.4 % (42.0-52.0); HEMOGLOBIN 7.1 g/dl (14.0-18.0); LYMPHOCYTES # 2.6 10^3/ul (0.8-2.9); LYMPHOCYTES % 19.6 % (15.0-51.0); MEAN CORPUSCULAR HEMOGLOBIN 27.7 pg (29.0-33.0); MEAN CORPUSCULAR HGB CONC 31.7 g/dl (32.0-37.0); MEAN CORPUSCULAR VOLUME 87.5 fl (82.0-101.0); MEAN PLATELET VOLUME 9.3 fl (7.4-10.4); MONOCYTE # 1.2 10^3/ul (0.3-0.9); MONOCYTES % 8.7 % (0.0-11.0); NEUTROPHIL # 8.8 10^3/ul (1.6-7.5); NEUTROPHILS % 65.9 % (39.0-77.0); PLATELET COUNT 267 10^3/UL (140-415); RED BLOOD COUNT 2.56 10^6/ul (4.70-6.10); RED CELL DISTRIBUTION WIDTH 17.3 % (11.5-14.5)
[2018-09-13 06:19] LABS: WHITE BLOOD COUNT 13.4 10^3/ul (4.8-10.8)
[2018-09-13] MEDS: LEVOTHYROXINE 50 MCG TAB PO (06:34)
[2018-09-13] MEDS: HEPARIN 5,000 UNIT/1 ML VIAL SC ×3 (06:56→21:33)
[2018-09-13 07:43] LABS: ANION GAP 1 (5-13); BLOOD UREA NITROGEN 40 mg/dl (7-20); CALCIUM 7.3 mg/dl (8.4-10.2); CARBON DIOXIDE 23 mmol/L (21-31); CHLORIDE 109 mmol/L (97-110); CREATININE 2.58 mg/dl (0.61-1.24); Estimated GFR 26 mL/min (>60); GLUCOSE 125 mg/dl (70-220); POTASSIUM 3.5 mmol/L (3.5-5.1); SODIUM 133 mmol/L (135-144)
[2018-09-13] MEDS: ATENOLOL 25 MG TAB PO ×2 (09:00→21:09)
[2018-09-13] MEDS: SOD CHLORIDE 0.9% 1,000 ML IV (09:24)
[2018-09-13] MEDS: SODIUM HYPOCHLORITE (1/40) 1 LITER BTL IRR (09:25)
[2018-09-13] MEDS: COLLAGENASE 5 GM (UD JAR) TOP ×2 (09:25)
[2018-09-13] MEDS: DOXYCYCLINE 100 MG TAB PO ×2 (09:26→21:44)
[2018-09-13] MEDS: ZINC SULFATE 220 MG CAP PO (09:26)
[2018-09-13] MEDS: MAGNESIUM HYDROXIDE 30ML CUP PO (09:26)
[2018-09-13] MEDS: CLOTRIMAZOLE 1% 30 GM CR TOP ×2 (09:26→21:44)
[2018-09-13] MEDS: CITRIC ACID/NA CITRATE 30 ML CUP PO ×3 (09:26→21:08)
[2018-09-13] MEDS: DOCUSATE SODIUM 100 MG CAP PO (09:27)
[2018-09-13] MEDS: MAGNESIUM OXIDE 400 MG TAB PO ×2 (09:27→21:08)
[2018-09-13] MEDS: HYDROmorphONE 2 MG/ML SYG IV ×2 (16:51→21:19)
[2018-09-13] MEDS: traZODone 50 MG TAB PO (21:08)
[2018-09-13] MEDS ORDERED: VANCOMYCIN IV PER PHARMACY XX (21:30)
[2018-09-13] MEDS: INSULIN GLARGINE [LANTus] (100 UNITS/ML) SYG SC (21:33)
[2018-09-14] MEDS: CASPOFUNGIN 50 MG in SOD CHLORIDE 0.9% 250 ML IVPB (00:14)
[2018-09-14] MEDS: SOD CHLORIDE 0.9% 1,000 ML IV ×2 (00:22→21:30)
[2018-09-14] MEDS: HYDROmorphONE 2 MG/ML SYG IV ×6 (05:07→22:04)
[2018-09-14 05:49] LABS: ADD MAN DIFF? NO
[2018-09-14 05:55] LABS: WHITE BLOOD COUNT 12.3 10^3/ul (4.8-10.8)
[2018-09-14 05:55] LABS: ABNORMAL IP MESSAGE 1; BASOPHIL # 0.1 10^3/ul (0.0-0.1); BASOPHILS % 0.6 % (0.0-2.0); EOSINOPHILS # 0.7 10^3/ul (0.0-0.5); EOSINOPHILS % 5.6 % (0.0-7.0); HEMATOCRIT 21.1 % (42.0-52.0); LYMPHOCYTES # 2.8 10^3/ul (0.8-2.9); LYMPHOCYTES % 22.9 % (15.0-51.0); MEAN CORPUSCULAR HEMOGLOBIN 27.2 pg (29.0-33.0); MEAN CORPUSCULAR HGB CONC 30.8 g/dl (32.0-37.0); MEAN CORPUSCULAR VOLUME 88.3 fl (82.0-101.0); MEAN PLATELET VOLUME 8.9 fl (7.4-10.4); MONOCYTES % 8.3 % (0.0-11.0); NEUTROPHIL # 7.6 10^3/ul (1.6-7.5); NEUTROPHILS % 61.7 % (39.0-77.0); PLATELET COUNT 249 10^3/UL (140-415); POSITIVE DIFF @See below; RED BLOOD COUNT 2.39 10^6/ul (4.70-6.10); RED CELL DISTRIBUTION WIDTH 17.2 % (11.5-14.5)
[2018-09-14 06:28] LABS: ANION GAP 2 (5-13); BLOOD UREA NITROGEN 36 mg/dl (7-20); CALCIUM 6.6 mg/dl (8.4-10.2); CARBON DIOXIDE 21 mmol/L (21-31); CHLORIDE 114 mmol/L (97-110); Estimated GFR 30 mL/min (>60); GLUCOSE 68 mg/dl (70-220); HEMOGLOBIN 6.5 g/dl (14.0-18.0); POTASSIUM 3.2 mmol/L (3.5-5.1); SODIUM 137 mmol/L (135-144)
[2018-09-14] MEDS: LEVOTHYROXINE 50 MCG TAB PO (06:45)
[2018-09-14] MEDS: HEPARIN 5,000 UNIT/1 ML VIAL SC (06:50)
[2018-09-14] MEDS: MAGNESIUM HYDROXIDE 30ML CUP PO (09:00)
[2018-09-14] MEDS: ATENOLOL 25 MG TAB PO ×2 (09:00→21:24)
[2018-09-14] MEDS: MAGNESIUM OXIDE 400 MG TAB PO ×2 (09:36→20:52)
[2018-09-14] MEDS: MIDODRINE 5 MG TAB PO ×3 (09:36→17:00)
[2018-09-14] MEDS: DOXYCYCLINE 100 MG TAB PO ×2 (09:36→20:52)
[2018-09-14] MEDS: ZINC SULFATE 220 MG CAP PO (09:36)
[2018-09-14] MEDS: DOCUSATE SODIUM 100 MG CAP PO (09:37)
[2018-09-14] MEDS: CITRIC ACID/NA CITRATE 30 ML CUP PO ×3 (09:38→20:52)
[2018-09-14] MEDS: COLLAGENASE 5 GM (UD JAR) TOP ×2 (09:39)
[2018-09-14] MEDS: CLOTRIMAZOLE 1% 30 GM CR TOP ×2 (09:39→21:25)
[2018-09-14] MEDS: SODIUM HYPOCHLORITE (1/40) 1 LITER BTL IRR (09:40)
[2018-09-14] MEDS: CYCLOBENZAPRINE 10 MG TAB PO ×2 (09:45→20:55)
[2018-09-14] MEDS: POTASSIUM CHLORIDE 100 ML IVPB (12:11)
[2018-09-14] MEDS: METHADONE 10 MG TAB PO (12:20)
[2018-09-14 12:48] LABS: IMMEDIATE SPIN CROSSMATCH 1 2
[2018-09-14] MEDS: ACETAMINOPHEN 325 MG TAB PO (16:59)
[2018-09-14] MEDS: DIPHENHYDRAMINE 25 MG CAP PO (16:59)
[2018-09-14] MEDS: traZODone 50 MG TAB PO (20:53)
[2018-09-14] MEDS: INSULIN GLARGINE [LANTus] (100 UNITS/ML) SYG SC (21:05)
[2018-09-15] MEDS: CASPOFUNGIN 50 MG in SOD CHLORIDE 0.9% 250 ML IVPB (00:06)
[2018-09-15] MEDS: LORAZEPAM 2 MG INJ IV ×2 (01:27→16:41)
[2018-09-15] MEDS: HYDROmorphONE 2 MG/ML SYG IV ×4 (02:07→14:11)
[2018-09-15] MEDS: LEVOTHYROXINE 50 MCG TAB PO (06:03)
[2018-09-15 06:07] LABS: ADD MAN DIFF? NO
[2018-09-15 06:10] LABS: BASOPHIL # 0.1 10^3/ul (0.0-0.1); BASOPHILS % 0.8 % (0.0-2.0); EOSINOPHILS % 10.2 % (0.0-7.0); HEMATOCRIT 26.6 % (42.0-52.0); HEMOGLOBIN 8.6 g/dl (14.0-18.0); LYMPHOCYTES # 2.8 10^3/ul (0.8-2.9); LYMPHOCYTES % 29.9 % (15.0-51.0); MEAN CORPUSCULAR HEMOGLOBIN 28.5 pg (29.0-33.0); MEAN CORPUSCULAR HGB CONC 32.3 g/dl (32.0-37.0); MEAN CORPUSCULAR VOLUME 88.1 fl (82.0-101.0); MEAN PLATELET VOLUME 8.8 fl (7.4-10.4); MONOCYTE # 0.7 10^3/ul (0.3-0.9); MONOCYTES % 7.3 % (0.0-11.0); NEUTROPHIL # 4.7 10^3/ul (1.6-7.5); NEUTROPHILS % 50.7 % (39.0-77.0); PLATELET COUNT 219 10^3/UL (140-415); RED BLOOD COUNT 3.02 10^6/ul (4.70-6.10); RED CELL DISTRIBUTION WIDTH 16.3 % (11.5-14.5)
[2018-09-15 06:10] LABS: WHITE BLOOD COUNT 9.3 10^3/ul (4.8-10.8)
[2018-09-15 06:40] LABS: ANION GAP 1 (5-13); BLOOD UREA NITROGEN 39 mg/dl (7-20); CALCIUM 6.7 mg/dl (8.4-10.2); CARBON DIOXIDE 23 mmol/L (21-31); CHLORIDE 113 mmol/L (97-110); CREATININE 2.43 mg/dl (0.61-1.24); Estimated GFR 28 mL/min (>60); GLUCOSE 54 mg/dl (70-220); POTASSIUM 3.3 mmol/L (3.5-5.1); SODIUM 137 mmol/L (135-144)
[2018-09-15] MEDS: MAGNESIUM HYDROXIDE 30ML CUP PO (09:00)
[2018-09-15] MEDS: DOCUSATE SODIUM 100 MG CAP PO (09:56)
[2018-09-15] MEDS: MIDODRINE 5 MG TAB PO ×3 (09:56→17:09)
[2018-09-15] MEDS: DOXYCYCLINE 100 MG TAB PO ×2 (09:57→20:37)
[2018-09-15] MEDS: ZINC SULFATE 220 MG CAP PO (09:57)
[2018-09-15] MEDS: MAGNESIUM OXIDE 400 MG TAB PO ×2 (09:57→20:37)
[2018-09-15] MEDS: ATENOLOL 25 MG TAB PO (09:57)
[2018-09-15] MEDS: CITRIC ACID/NA CITRATE 30 ML CUP PO ×3 (09:57→20:36)
[2018-09-15] MEDS: SODIUM HYPOCHLORITE (1/40) 1 LITER BTL IRR (09:58)
[2018-09-15] MEDS: CLOTRIMAZOLE 1% 30 GM CR TOP ×2 (09:58→20:51)
[2018-09-15] MEDS: COLLAGENASE 5 GM (UD JAR) TOP (09:58)
[2018-09-15] MEDS: POTASSIUM CHLORIDE 100 ML IVPB (13:09)
[2018-09-15] MEDS: METHADONE 10 MG TAB PO (16:41)
[2018-09-15] MEDS: CYCLOBENZAPRINE 10 MG TAB PO (16:41)
[2018-09-15] MEDS: EPOETIN 4000 UNITS/ML (NON ESRD/NON ONCOLOGY) SC (17:10)
[2018-09-15] MEDS: LORAZEPAM 0.5 MG TAB PO (20:36)
[2018-09-15] MEDS: traZODone 50 MG TAB PO (20:37)
[2018-09-15] MEDS: INSULIN GLARGINE [LANTus] (100 UNITS/ML) SYG SC (20:46)
[2018-09-16] MEDS: CASPOFUNGIN 50 MG in SOD CHLORIDE 0.9% 250 ML IVPB (01:04)
[2018-09-16] MEDS: HYDROmorphONE 2 MG/ML SYG IV ×4 (01:04→20:07)
[2018-09-16] MEDS: LORAZEPAM 0.5 MG TAB PO ×2 (03:32→20:06)
[2018-09-16] MEDS: METHADONE 10 MG TAB PO (03:32)
[2018-09-16] MEDS: LEVOTHYROXINE 50 MCG TAB PO (06:15)
[2018-09-16 07:04] LABS: INR 1.01; PROTIME 13.4 Sec (11.9-14.9)
[2018-09-16 07:05] LABS: PARTIAL THROMBOPLASTIN TIME 33.9 Sec (23.0-35.0)
[2018-09-16 07:10] LABS: ALANINE AMINOTRANSFERASE 13 IU/L (13-69); ALBUMIN 1.5 g/dl (3.3-4.9); ALBUMIN/GLOBULIN RATIO 0.65; ALKALINE PHOSPHATASE 100 IU/L (42-121); ANION GAP 7 (5-13); ASPARTATE AMINO TRANSFERASE 13 IU/L (15-46); BLOOD UREA NITROGEN 43 mg/dl (7-20); CALCIUM 7.9 mg/dl (8.4-10.2); CARBON DIOXIDE 23 mmol/L (21-31); CHLORIDE 105 mmol/L (97-110); Estimated GFR 21 mL/min (>60); GLUCOSE 66 mg/dl (70-220); POTASSIUM 3.8 mmol/L (3.5-5.1); SODIUM 135 mmol/L (135-144); TOTAL PROTEIN 3.8 g/dl (6.1-8.1)
[2018-09-16] MEDS: ZINC SULFATE 220 MG CAP PO (09:15)
[2018-09-16] MEDS: LORAZEPAM 2 MG INJ IV (09:15)
[2018-09-16] MEDS: CITRIC ACID/NA CITRATE 30 ML CUP PO ×3 (09:15→20:06)
[2018-09-16] MEDS: DOCUSATE SODIUM 100 MG CAP PO (09:15)
[2018-09-16] MEDS: MAGNESIUM HYDROXIDE 30ML CUP PO (09:15)
[2018-09-16] MEDS: SODIUM HYPOCHLORITE (1/40) 1 LITER BTL IRR (09:16)
[2018-09-16] MEDS: DOXYCYCLINE 100 MG TAB PO ×2 (09:16→20:06)
[2018-09-16] MEDS: MAGNESIUM OXIDE 400 MG TAB PO ×2 (09:16→20:06)
[2018-09-16] MEDS: MIDODRINE 5 MG TAB PO ×3 (09:17→17:29)
[2018-09-16] MEDS: COLLAGENASE 5 GM (UD JAR) TOP (09:17)
[2018-09-16] MEDS: CLOTRIMAZOLE 1% 30 GM CR TOP ×2 (09:17→21:09)
[2018-09-16] MEDS: SILVER NITRATE SWAB TOP (13:27)
[2018-09-16] MEDS: NS + KCL 20 MEQ 1,000 ML IV (13:27)
[2018-09-16] MEDS: traZODone 50 MG TAB PO (20:06)
[2018-09-16] MEDS: INSULIN GLARGINE [LANTus] (100 UNITS/ML) SYG SC (20:41)
[2018-09-17] MEDS: NS + KCL 20 MEQ 1,000 ML IV ×3 (00:08→17:15)
[2018-09-17] MEDS: CASPOFUNGIN 50 MG in SOD CHLORIDE 0.9% 250 ML IVPB ×2 (00:09→23:41)
[2018-09-17] MEDS: HYDROmorphONE 2 MG/ML SYG IV ×5 (00:11→17:15)
[2018-09-17 05:56] LABS: ADD MAN DIFF? NO
[2018-09-17 06:05] LABS: BASOPHIL # 0.1 10^3/ul (0.0-0.1); BASOPHILS % 0.6 % (0.0-2.0); EOSINOPHILS % 9.2 % (0.0-7.0); HEMATOCRIT 31.5 % (42.0-52.0); LYMPHOCYTES # 2.6 10^3/ul (0.8-2.9); LYMPHOCYTES % 23.4 % (15.0-51.0); MEAN CORPUSCULAR HEMOGLOBIN 28.4 pg (29.0-33.0); MEAN CORPUSCULAR HGB CONC 31.7 g/dl (32.0-37.0); MEAN CORPUSCULAR VOLUME 89.5 fl (82.0-101.0); MEAN PLATELET VOLUME 8.3 fl (7.4-10.4); MONOCYTE # 0.7 10^3/ul (0.3-0.9); MONOCYTES % 6.4 % (0.0-11.0); NEUTROPHIL # 6.5 10^3/ul (1.6-7.5); NEUTROPHILS % 58.9 % (39.0-77.0); PLATELET COUNT 266 10^3/UL (140-415); RED BLOOD COUNT 3.52 10^6/ul (4.70-6.10); RED CELL DISTRIBUTION WIDTH 15.9 % (11.5-14.5)
[2018-09-17] MEDS: LEVOTHYROXINE 50 MCG TAB PO (06:12)
[2018-09-17 06:38] LABS: ANION GAP 0 (5-13); BLOOD UREA NITROGEN 48 mg/dl (7-20); CALCIUM 7.9 mg/dl (8.4-10.2); CARBON DIOXIDE 27 mmol/L (21-31); CHLORIDE 109 mmol/L (97-110); CREATININE 3.09 mg/dl (0.61-1.24); Estimated GFR 21 mL/min (>60); GLUCOSE 109 mg/dl (70-220); POTASSIUM 3.9 mmol/L (3.5-5.1); SODIUM 136 mmol/L (135-144)
[2018-09-17] MEDS: DOXYCYCLINE 100 MG TAB PO ×2 (08:09→20:07)
[2018-09-17] MEDS: DOCUSATE SODIUM 100 MG CAP PO (08:09)
[2018-09-17] MEDS: MAGNESIUM OXIDE 400 MG TAB PO ×2 (08:09→20:07)
[2018-09-17] MEDS: CITRIC ACID/NA CITRATE 30 ML CUP PO ×3 (08:10→20:07)
[2018-09-17] MEDS: COLLAGENASE 5 GM (UD JAR) TOP (08:10)
[2018-09-17] MEDS: CLOTRIMAZOLE 1% 30 GM CR TOP ×2 (08:10→20:08)
[2018-09-17] MEDS: ZINC SULFATE 220 MG CAP PO (08:10)
[2018-09-17] MEDS: SODIUM HYPOCHLORITE (1/40) 1 LITER BTL IRR (08:11)
[2018-09-17] MEDS: MIDODRINE 5 MG TAB PO ×3 (08:14→16:54)
[2018-09-17] MEDS: MAGNESIUM HYDROXIDE 30ML CUP PO (08:23)
[2018-09-17] MEDS: CYCLOBENZAPRINE 10 MG TAB PO (10:36)
[2018-09-17] MEDS: EPOETIN 4000 UNITS/ML (NON ESRD/NON ONCOLOGY) SC (16:58)
[2018-09-17] MEDS: LORAZEPAM 2 MG INJ IV (18:31)
[2018-09-17] MEDS: traZODone 50 MG TAB PO (20:07)
[2018-09-17] MEDS: INSULIN GLARGINE [LANTus] (100 UNITS/ML) SYG SC (20:14)
[2018-09-18] MEDS: NS + KCL 20 MEQ 1,000 ML IV ×2 (04:03→15:17)
[2018-09-18] MEDS: HYDROmorphONE 2 MG/ML SYG IV ×5 (04:19→21:28)
[2018-09-18 05:46] LABS: ADD MAN DIFF? NO
[2018-09-18 05:47] LABS: WHITE BLOOD COUNT 11.1 10^3/ul (4.8-10.8)
[2018-09-18 05:47] LABS: BASOPHIL # 0.1 10^3/ul (0.0-0.1); BASOPHILS % 0.6 % (0.0-2.0); EOSINOPHILS % 8.9 % (0.0-7.0); HEMATOCRIT 32.2 % (42.0-52.0); HEMOGLOBIN 10.1 g/dl (14.0-18.0); LYMPHOCYTES # 2.3 10^3/ul (0.8-2.9); LYMPHOCYTES % 20.8 % (15.0-51.0); MEAN CORPUSCULAR HEMOGLOBIN 28.1 pg (29.0-33.0); MEAN CORPUSCULAR HGB CONC 31.4 g/dl (32.0-37.0); MEAN CORPUSCULAR VOLUME 89.4 fl (82.0-101.0); MEAN PLATELET VOLUME 8.1 fl (7.4-10.4); MONOCYTE # 0.7 10^3/ul (0.3-0.9); MONOCYTES % 6.3 % (0.0-11.0); NEUTROPHIL # 6.8 10^3/ul (1.6-7.5); NEUTROPHILS % 61.5 % (39.0-77.0); NUCLEATED RED BLOOD CELLS% 0.2 /100WBC (0.0-0.0); PLATELET COUNT 285 10^3/UL (140-415); RED CELL DISTRIBUTION WIDTH 15.9 % (11.5-14.5)
[2018-09-18 06:20] LABS: ANION GAP 3 (5-13); BLOOD UREA NITROGEN 45 mg/dl (7-20); CALCIUM 7.8 mg/dl (8.4-10.2); CARBON DIOXIDE 23 mmol/L (21-31); CHLORIDE 111 mmol/L (97-110); CREATININE 2.85 mg/dl (0.61-1.24); Estimated GFR 23 mL/min (>60); GLUCOSE 128 mg/dl (70-220); POTASSIUM 3.8 mmol/L (3.5-5.1); SODIUM 137 mmol/L (135-144)
[2018-09-18] MEDS: LEVOTHYROXINE 50 MCG TAB PO (06:30)
[2018-09-18] MEDS: MAGNESIUM HYDROXIDE 30ML CUP PO (08:14)
[2018-09-18] MEDS: MIDODRINE 5 MG TAB PO ×3 (08:14→17:35)
[2018-09-18] MEDS: DOCUSATE SODIUM 100 MG CAP PO (08:14)
[2018-09-18] MEDS: DOXYCYCLINE 100 MG TAB PO ×2 (08:14→20:31)
[2018-09-18] MEDS: MAGNESIUM OXIDE 400 MG TAB PO ×2 (08:14→20:31)
[2018-09-18] MEDS: COLLAGENASE 5 GM (UD JAR) TOP (08:14)
[2018-09-18] MEDS: CITRIC ACID/NA CITRATE 30 ML CUP PO (08:14)
[2018-09-18] MEDS: SODIUM HYPOCHLORITE (1/40) 1 LITER BTL IRR (08:15)
[2018-09-18] MEDS: CLOTRIMAZOLE 1% 30 GM CR TOP ×2 (08:15→20:31)
[2018-09-18] MEDS: ZINC SULFATE 220 MG CAP PO (08:18)
[2018-09-18] MEDS: CYCLOBENZAPRINE 10 MG TAB PO (11:22)
[2018-09-18] MEDS: GUAIFENESIN/DM 5ML CUP PO (11:22)
[2018-09-18 17:33] LABS: OCCULT BLOOD STOOL NEGATIVE (NEGATIVE)
[2018-09-18] MEDS: traZODone 50 MG TAB PO (20:31)
[2018-09-18] MEDS: INSULIN GLARGINE [LANTus] (100 UNITS/ML) SYG SC (20:54)
[2018-09-19] MEDS: NS + KCL 20 MEQ 1,000 ML IV ×3 (01:11→20:45)
[2018-09-19] MEDS: HYDROmorphONE 2 MG/ML SYG IV ×6 (01:18→21:29)
[2018-09-19] MEDS: CASPOFUNGIN 50 MG in SOD CHLORIDE 0.9% 250 ML IVPB (01:58)
[2018-09-19] MEDS: LEVOTHYROXINE 50 MCG TAB PO (06:05)
[2018-09-19 06:18] LABS: ADD MAN DIFF? NO
[2018-09-19 06:29] LABS: WHITE BLOOD COUNT 11.1 10^3/ul (4.8-10.8)
[2018-09-19 06:29] LABS: BASOPHIL # 0.1 10^3/ul (0.0-0.1); BASOPHILS % 0.7 % (0.0-2.0); EOSINOPHILS # 1.2 10^3/ul (0.0-0.5); EOSINOPHILS % 10.7 % (0.0-7.0); HEMATOCRIT 30.7 % (42.0-52.0); HEMOGLOBIN 9.6 g/dl (14.0-18.0); LYMPHOCYTES # 3.3 10^3/ul (0.8-2.9); MEAN CORPUSCULAR HEMOGLOBIN 28.1 pg (29.0-33.0); MEAN CORPUSCULAR HGB CONC 31.3 g/dl (32.0-37.0); MEAN CORPUSCULAR VOLUME 89.8 fl (82.0-101.0); MEAN PLATELET VOLUME 8.4 fl (7.4-10.4); MONOCYTE # 0.7 10^3/ul (0.3-0.9); MONOCYTES % 6.2 % (0.0-11.0); NEUTROPHIL # 5.5 10^3/ul (1.6-7.5); NEUTROPHILS % 49.9 % (39.0-77.0); PLATELET COUNT 278 10^3/UL (140-415); RED BLOOD COUNT 3.42 10^6/ul (4.70-6.10); RED CELL DISTRIBUTION WIDTH 16.1 % (11.5-14.5)
[2018-09-19 07:01] LABS: BLOOD UREA NITROGEN 42 mg/dl (7-20); CALCIUM 7.1 mg/dl (8.4-10.2); CREATININE 2.44 mg/dl (0.61-1.24); Estimated GFR 28 mL/min (>60); GLUCOSE 119 mg/dl (70-220)
[2018-09-19 07:15] LABS: ANION GAP -1 (5-13); CARBON DIOXIDE 21 mmol/L (21-31); CHLORIDE 117 mmol/L (97-110); POTASSIUM 5.6 mmol/L (3.5-5.1); SODIUM 137 mmol/L (135-144)
[2018-09-19] MEDS: COLLAGENASE 5 GM (UD JAR) TOP (09:27)
[2018-09-19] MEDS: MAGNESIUM HYDROXIDE 30ML CUP PO (09:27)
[2018-09-19] MEDS: CITRIC ACID/NA CITRATE 30 ML CUP PO (09:28)
[2018-09-19] MEDS: MAGNESIUM OXIDE 400 MG TAB PO ×2 (09:29→20:45)
[2018-09-19] MEDS: DOCUSATE SODIUM 100 MG CAP PO (09:29)
[2018-09-19] MEDS: ZINC SULFATE 220 MG CAP PO (09:29)
[2018-09-19] MEDS: DOXYCYCLINE 100 MG TAB PO ×2 (09:29→20:45)
[2018-09-19] MEDS: SODIUM POLYSTYRENE 15 GM KIT (POWDER + SORBITOL) PO (09:29)
[2018-09-19] MEDS: SODIUM HYPOCHLORITE (1/40) 1 LITER BTL IRR (09:30)
[2018-09-19] MEDS: CLOTRIMAZOLE 1% 30 GM CR TOP ×2 (09:31→21:35)
[2018-09-19] MEDS: MIDODRINE 5 MG TAB PO ×3 (09:37→17:51)
[2018-09-19 11:50] LABS: OCCULT BLOOD STOOL NEGATIVE (NEGATIVE)
[2018-09-19] MEDS: EPOETIN 4000 UNITS/ML (NON ESRD/NON ONCOLOGY) SC (17:45)
[2018-09-19] MEDS: traZODone 50 MG TAB PO (20:45)
[2018-09-19] MEDS: INSULIN GLARGINE [LANTus] (100 UNITS/ML) SYG SC (21:35)
[2018-09-20] MEDS: CASPOFUNGIN 50 MG in SOD CHLORIDE 0.9% 250 ML IVPB (00:15)
[2018-09-20] MEDS: HYDROmorphONE 2 MG/ML SYG IV ×6 (01:03→20:34)
[2018-09-20 06:06] LABS: ADD MAN DIFF? NO
[2018-09-20] MEDS: NS + KCL 20 MEQ 1,000 ML IV ×2 (06:25→17:02)
[2018-09-20] MEDS: LEVOTHYROXINE 50 MCG TAB PO (06:25)
[2018-09-20 06:36] LABS: ANION GAP 2 (5-13); BLOOD UREA NITROGEN 40 mg/dl (7-20); CALCIUM 8.1 mg/dl (8.4-10.2); CARBON DIOXIDE 22 mmol/L (21-31); CHLORIDE 110 mmol/L (97-110); CREATININE 2.66 mg/dl (0.61-1.24); Estimated GFR 25 mL/min (>60); GLUCOSE 95 mg/dl (70-220); POTASSIUM 4.1 mmol/L (3.5-5.1); SODIUM 134 mmol/L (135-144)
[2018-09-20 06:37] LABS: WHITE BLOOD COUNT 13.6 10^3/ul (4.8-10.8)
[2018-09-20 06:37] LABS: BASOPHIL # 0.1 10^3/ul (0.0-0.1); BASOPHILS % 0.7 % (0.0-2.0); EOSINOPHILS # 1.3 10^3/ul (0.0-0.5); EOSINOPHILS % 9.4 % (0.0-7.0); HEMATOCRIT 33.6 % (42.0-52.0); HEMOGLOBIN 10.6 g/dl (14.0-18.0); LYMPHOCYTES # 3.1 10^3/ul (0.8-2.9); LYMPHOCYTES % 22.6 % (15.0-51.0); MEAN CORPUSCULAR HEMOGLOBIN 28.3 pg (29.0-33.0); MEAN CORPUSCULAR HGB CONC 31.5 g/dl (32.0-37.0); MEAN CORPUSCULAR VOLUME 89.8 fl (82.0-101.0); MEAN PLATELET VOLUME 8.3 fl (7.4-10.4); MONOCYTE # 0.8 10^3/ul (0.3-0.9); MONOCYTES % 6.2 % (0.0-11.0); NEUTROPHIL # 8.1 10^3/ul (1.6-7.5); NEUTROPHILS % 59.5 % (39.0-77.0); PLATELET COUNT 309 10^3/UL (140-415); RED BLOOD COUNT 3.74 10^6/ul (4.70-6.10); RED CELL DISTRIBUTION WIDTH 16.2 % (11.5-14.5)
[2018-09-20] MEDS: MAGNESIUM OXIDE 400 MG TAB PO ×2 (08:43→20:30)
[2018-09-20] MEDS: MAGNESIUM HYDROXIDE 30ML CUP PO (08:43)
[2018-09-20] MEDS: DOCUSATE SODIUM 100 MG CAP PO (08:43)
[2018-09-20] MEDS: DOXYCYCLINE 100 MG TAB PO ×2 (08:43→20:30)
[2018-09-20] MEDS: CITRIC ACID/NA CITRATE 30 ML CUP PO (08:43)
[2018-09-20] MEDS: COLLAGENASE 5 GM (UD JAR) TOP (08:43)
[2018-09-20] MEDS: ZINC SULFATE 220 MG CAP PO (08:43)
[2018-09-20] MEDS: CLOTRIMAZOLE 1% 30 GM CR TOP ×2 (08:43→20:36)
[2018-09-20] MEDS: SODIUM HYPOCHLORITE (1/40) 1 LITER BTL IRR (08:44)
[2018-09-20] MEDS: MIDODRINE 5 MG TAB PO ×3 (08:49→17:03)
[2018-09-20] MEDS: traZODone 50 MG TAB PO (20:30)
[2018-09-20] MEDS: INSULIN GLARGINE [LANTus] (100 UNITS/ML) SYG SC (20:43)
[2018-09-21] MEDS: HYDROmorphONE 2 MG/ML SYG IV ×5 (00:21→21:46)
[2018-09-21] MEDS: CASPOFUNGIN 50 MG in SOD CHLORIDE 0.9% 250 ML IVPB (00:21)
[2018-09-21] MEDS: NS + KCL 20 MEQ 1,000 ML IV ×3 (02:30→12:30)
[2018-09-21 05:54] LABS: ADD MAN DIFF? NO
[2018-09-21 06:03] LABS: BASOPHIL # 0.1 10^3/ul (0.0-0.1); BASOPHILS % 0.7 % (0.0-2.0); EOSINOPHILS # 1.1 10^3/ul (0.0-0.5); EOSINOPHILS % 9.6 % (0.0-7.0); HEMATOCRIT 36.8 % (42.0-52.0); HEMOGLOBIN 11.7 g/dl (14.0-18.0); LYMPHOCYTES # 3.4 10^3/ul (0.8-2.9); LYMPHOCYTES % 29.7 % (15.0-51.0); MEAN CORPUSCULAR HEMOGLOBIN 28.2 pg (29.0-33.0); MEAN CORPUSCULAR HGB CONC 31.8 g/dl (32.0-37.0); MEAN CORPUSCULAR VOLUME 88.7 fl (82.0-101.0); MEAN PLATELET VOLUME 8.2 fl (7.4-10.4); MONOCYTE # 0.8 10^3/ul (0.3-0.9); MONOCYTES % 7.3 % (0.0-11.0); NEUTROPHIL # 5.8 10^3/ul (1.6-7.5); NEUTROPHILS % 50.7 % (39.0-77.0); NUCLEATED RED BLOOD CELLS% 0.2 /100WBC (0.0-0.0); PLATELET COUNT 277 10^3/UL (140-415); RED BLOOD COUNT 4.15 10^6/ul (4.70-6.10); RED CELL DISTRIBUTION WIDTH 16.6 % (11.5-14.5)
[2018-09-21 06:03] LABS: WHITE BLOOD COUNT 11.4 10^3/ul (4.8-10.8)
[2018-09-21] MEDS: LEVOTHYROXINE 50 MCG TAB PO (06:07)
[2018-09-21] MEDS: ONDANSETRON 4 MG INJ IV ×2 (06:08→20:48)
[2018-09-21 06:42] LABS: ANION GAP 2 (5-13); BLOOD UREA NITROGEN 40 mg/dl (7-20); CALCIUM 8.3 mg/dl (8.4-10.2); CARBON DIOXIDE 21 mmol/L (21-31); CHLORIDE 114 mmol/L (97-110); CREATININE 2.64 mg/dl (0.61-1.24); Estimated GFR 25 mL/min (>60); GLUCOSE 70 mg/dl (70-220); POTASSIUM 4.5 mmol/L (3.5-5.1); SODIUM 137 mmol/L (135-144)
[2018-09-21] MEDS: MAGNESIUM HYDROXIDE 30ML CUP PO (08:45)
[2018-09-21] MEDS: MAGNESIUM OXIDE 400 MG TAB PO ×2 (08:45→20:37)
[2018-09-21] MEDS: DOCUSATE SODIUM 100 MG CAP PO (08:45)
[2018-09-21] MEDS: CITRIC ACID/NA CITRATE 30 ML CUP PO (08:45)
[2018-09-21] MEDS: SODIUM HYPOCHLORITE (1/40) 1 LITER BTL IRR (08:45)
[2018-09-21] MEDS: MIDODRINE 5 MG TAB PO ×3 (08:45→17:36)
[2018-09-21] MEDS: CLOTRIMAZOLE 1% 30 GM CR TOP ×2 (08:46→20:38)
[2018-09-21] MEDS: ZINC SULFATE 220 MG CAP PO (08:46)
[2018-09-21] MEDS: COLLAGENASE 5 GM (UD JAR) TOP (08:46)
[2018-09-21] MEDS: DOXYCYCLINE 100 MG TAB PO ×2 (08:46→20:37)
[2018-09-21] MEDS: LORAZEPAM 2 MG INJ IV (13:49)
[2018-09-21] MEDS: traZODone 50 MG TAB PO (20:37)
[2018-09-21] MEDS: INSULIN GLARGINE [LANTus] (100 UNITS/ML) SYG SC (20:47)
[2018-09-22] MEDS: CASPOFUNGIN 50 MG in SOD CHLORIDE 0.9% 250 ML IVPB (00:10)
[2018-09-22] MEDS: LORAZEPAM 0.5 MG TAB PO (00:10)
[2018-09-22] MEDS: HYDROmorphONE 2 MG/ML SYG IV ×5 (01:49→18:57)
[2018-09-22] MEDS: ONDANSETRON 4 MG INJ IV ×2 (05:14→09:03)
[2018-09-22] MEDS: LEVOTHYROXINE 50 MCG TAB PO (07:36)
[2018-09-22] MEDS: COLLAGENASE 5 GM (UD JAR) TOP (08:56)
[2018-09-22] MEDS: SODIUM HYPOCHLORITE (1/40) 1 LITER BTL IRR (08:56)
[2018-09-22] MEDS: CITRIC ACID/NA CITRATE 30 ML CUP PO (08:58)
[2018-09-22] MEDS: DOCUSATE SODIUM 100 MG CAP PO (09:00)
[2018-09-22] MEDS: MAGNESIUM HYDROXIDE 30ML CUP PO (09:00)
[2018-09-22] MEDS: CLOTRIMAZOLE 1% 30 GM CR TOP ×2 (09:00→21:19)
[2018-09-22] MEDS: DOXYCYCLINE 100 MG TAB PO ×2 (09:03→21:17)
[2018-09-22] MEDS: ZINC SULFATE 220 MG CAP PO (09:03)
[2018-09-22] MEDS: CYCLOBENZAPRINE 10 MG TAB PO (09:03)
[2018-09-22] MEDS: MAGNESIUM OXIDE 400 MG TAB PO ×2 (09:03→21:18)
[2018-09-22] MEDS: MIDODRINE 5 MG TAB PO ×3 (09:13→17:00)
[2018-09-22] MEDS: ALBUTEROL/IPRATROPIUM (NEB) 3 ML AMP HHN (09:33)
[2018-09-22] MEDS: NS + KCL 20 MEQ 1,000 ML IV ×2 (11:38→21:30)
[2018-09-22] MEDS: EPOETIN 4000 UNITS/ML (NON ESRD/NON ONCOLOGY) SC (17:00)
[2018-09-22] MEDS: traZODone 50 MG TAB PO (21:17)
[2018-09-22] MEDS: INSULIN GLARGINE [LANTus] (100 UNITS/ML) SYG SC (21:18)
[2018-09-22] MEDS: LORAZEPAM 2 MG INJ IV (22:07)
[2018-09-23] MEDS: CASPOFUNGIN 50 MG in SOD CHLORIDE 0.9% 250 ML IVPB ×2 (00:24→23:49)
[2018-09-23] MEDS: HYDROmorphONE 2 MG/ML SYG IV ×5 (04:57→22:02)
[2018-09-23 06:06] LABS: ADD MAN DIFF? NO
[2018-09-23 06:13] LABS: BASOPHIL # 0.1 10^3/ul (0.0-0.1); BASOPHILS % 0.7 % (0.0-2.0); EOSINOPHILS # 0.7 10^3/ul (0.0-0.5); EOSINOPHILS % 7.3 % (0.0-7.0); HEMATOCRIT 36.6 % (42.0-52.0); HEMOGLOBIN 11.4 g/dl (14.0-18.0); LYMPHOCYTES % 33.9 % (15.0-51.0); MEAN CORPUSCULAR HEMOGLOBIN 27.6 pg (29.0-33.0); MEAN CORPUSCULAR HGB CONC 31.1 g/dl (32.0-37.0); MEAN CORPUSCULAR VOLUME 88.6 fl (82.0-101.0); MEAN PLATELET VOLUME 8.2 fl (7.4-10.4); MONOCYTE # 0.6 10^3/ul (0.3-0.9); MONOCYTES % 6.9 % (0.0-11.0); NEUTROPHIL # 4.4 10^3/ul (1.6-7.5); NEUTROPHILS % 49.7 % (39.0-77.0); PLATELET COUNT 291 10^3/UL (140-415); RED BLOOD COUNT 4.13 10^6/ul (4.70-6.10); RED CELL DISTRIBUTION WIDTH 16.8 % (11.5-14.5)
[2018-09-23 06:13] LABS: WHITE BLOOD COUNT 8.9 10^3/ul (4.8-10.8)
[2018-09-23] MEDS: LEVOTHYROXINE 50 MCG TAB PO (06:25)
[2018-09-23 06:47] LABS: ANION GAP 3 (5-13); BLOOD UREA NITROGEN 36 mg/dl (7-20); CALCIUM 8.2 mg/dl (8.4-10.2); CARBON DIOXIDE 21 mmol/L (21-31); CHLORIDE 110 mmol/L (97-110); CREATININE 2.75 mg/dl (0.61-1.24); Estimated GFR 24 mL/min (>60); GLUCOSE 63 mg/dl (70-220); POTASSIUM 4.1 mmol/L (3.5-5.1); SODIUM 134 mmol/L (135-144)
[2018-09-23] MEDS: MAGNESIUM HYDROXIDE 30ML CUP PO (09:00)
[2018-09-23] MEDS: DOCUSATE SODIUM 100 MG CAP PO (09:00)
[2018-09-23] MEDS: SODIUM HYPOCHLORITE (1/40) 1 LITER BTL IRR (09:31)
[2018-09-23] MEDS: CITRIC ACID/NA CITRATE 30 ML CUP PO (09:31)
[2018-09-23] MEDS: DOXYCYCLINE 100 MG TAB PO ×2 (09:33→21:04)
[2018-09-23] MEDS: MAGNESIUM OXIDE 400 MG TAB PO ×2 (09:33→21:04)
[2018-09-23] MEDS: ZINC SULFATE 220 MG CAP PO (09:33)
[2018-09-23] MEDS: COLLAGENASE 5 GM (UD JAR) TOP (09:34)
[2018-09-23] MEDS: CLOTRIMAZOLE 1% 30 GM CR TOP ×2 (09:34→21:12)
[2018-09-23] MEDS: MIDODRINE 5 MG TAB PO ×3 (09:34→18:17)
[2018-09-23] MEDS: LORAZEPAM 2 MG INJ IV ×2 (11:50→23:47)
[2018-09-23] MEDS: CYCLOBENZAPRINE 10 MG TAB PO (13:47)
[2018-09-23] MEDS: LORAZEPAM 0.5 MG TAB PO (19:54)
[2018-09-23] MEDS: traZODone 50 MG TAB PO (21:04)
[2018-09-23] MEDS: INSULIN GLARGINE [LANTus] (100 UNITS/ML) SYG SC (21:11)
[2018-09-24] MEDS: NS + KCL 20 MEQ 1,000 ML IV ×2 (01:59→11:57)
[2018-09-24] MEDS: HYDROmorphONE 2 MG/ML SYG IV ×5 (01:59→21:59)
[2018-09-24 05:11] LABS: ADD MAN DIFF? NO
[2018-09-24 05:19] LABS: WHITE BLOOD COUNT 9.3 10^3/ul (4.8-10.8)
[2018-09-24 05:19] LABS: BASOPHIL # 0.1 10^3/ul (0.0-0.1); BASOPHILS % 0.5 % (0.0-2.0); EOSINOPHILS # 0.8 10^3/ul (0.0-0.5); EOSINOPHILS % 8.4 % (0.0-7.0); HEMOGLOBIN 9.7 g/dl (14.0-18.0); LYMPHOCYTES # 3.4 10^3/ul (0.8-2.9); LYMPHOCYTES % 36.5 % (15.0-51.0); MEAN CORPUSCULAR HEMOGLOBIN 27.5 pg (29.0-33.0); MEAN CORPUSCULAR HGB CONC 31.3 g/dl (32.0-37.0); MEAN CORPUSCULAR VOLUME 87.8 fl (82.0-101.0); MEAN PLATELET VOLUME 8.3 fl (7.4-10.4); MONOCYTE # 0.7 10^3/ul (0.3-0.9); MONOCYTES % 7.7 % (0.0-11.0); NEUTROPHIL # 4.2 10^3/ul (1.6-7.5); NEUTROPHILS % 45.6 % (39.0-77.0); PLATELET COUNT 231 10^3/UL (140-415); RED BLOOD COUNT 3.53 10^6/ul (4.70-6.10); RED CELL DISTRIBUTION WIDTH 17.2 % (11.5-14.5)
[2018-09-24 05:46] LABS: ANION GAP 2 (5-13); BLOOD UREA NITROGEN 37 mg/dl (7-20); CALCIUM 7.7 mg/dl (8.4-10.2); CARBON DIOXIDE 20 mmol/L (21-31); CHLORIDE 113 mmol/L (97-110); CREATININE 2.73 mg/dl (0.61-1.24); Estimated GFR 25 mL/min (>60); GLUCOSE 105 mg/dl (70-220); POTASSIUM 4.4 mmol/L (3.5-5.1); SODIUM 135 mmol/L (135-144)
[2018-09-24] MEDS: LEVOTHYROXINE 50 MCG TAB PO (06:00)
[2018-09-24] MEDS: MAGNESIUM HYDROXIDE 30ML CUP PO ×2 (08:20→08:43)
[2018-09-24] MEDS: COLLAGENASE 5 GM (UD JAR) TOP (08:20)
[2018-09-24] MEDS: CITRIC ACID/NA CITRATE 30 ML CUP PO (08:20)
[2018-09-24] MEDS: ZINC SULFATE 220 MG CAP PO (08:21)
[2018-09-24] MEDS: MAGNESIUM OXIDE 400 MG TAB PO ×2 (08:21→20:56)
[2018-09-24] MEDS: DOXYCYCLINE 100 MG TAB PO ×2 (08:21→20:56)
[2018-09-24] MEDS: DOCUSATE SODIUM 100 MG CAP PO (08:21)
[2018-09-24] MEDS: SODIUM HYPOCHLORITE (1/40) 1 LITER BTL IRR (08:22)
[2018-09-24] MEDS: CLOTRIMAZOLE 1% 30 GM CR TOP ×2 (08:22→21:03)
[2018-09-24] MEDS: MIDODRINE 5 MG TAB PO ×3 (09:00→16:21)
[2018-09-24] MEDS ORDERED: METHADONE 5 MG TAB PO (13:00)
[2018-09-24] MEDS: METHADONE 5 MG TAB PO ×2 (14:05→20:56)
[2018-09-24] MEDS: CYCLOBENZAPRINE 10 MG TAB PO (16:19)
[2018-09-24] MEDS: LORAZEPAM 2 MG INJ IV (16:20)
[2018-09-24] MEDS: EPOETIN 4000 UNITS/ML (NON ESRD/NON ONCOLOGY) SC (16:57)
[2018-09-24] MEDS: traZODone 50 MG TAB PO (21:00)
[2018-09-24] MEDS: INSULIN GLARGINE [LANTus] (100 UNITS/ML) SYG SC (21:02)
[2018-09-25] MEDS: HYDROmorphONE 2 MG/ML SYG IV ×3 (02:46→12:40)
[2018-09-25] MEDS: LORAZEPAM 2 MG INJ IV ×3 (04:45→15:22)
[2018-09-25 05:38] LABS: ADD MAN DIFF? NO
[2018-09-25] MEDS: LEVOTHYROXINE 50 MCG TAB PO (05:46)
[2018-09-25] MEDS: traZODone 50 MG TAB PO ×2 (05:47→21:20)
[2018-09-25] MEDS: METHADONE 5 MG TAB PO ×3 (05:47→21:20)
[2018-09-25 05:53] LABS: WHITE BLOOD COUNT 10.7 10^3/ul (4.8-10.8)
[2018-09-25 05:53] LABS: BASOPHIL # 0.1 10^3/ul (0.0-0.1); BASOPHILS % 0.6 % (0.0-2.0); EOSINOPHILS # 0.7 10^3/ul (0.0-0.5); EOSINOPHILS % 6.9 % (0.0-7.0); HEMATOCRIT 41.4 % (42.0-52.0); HEMOGLOBIN 13.1 g/dl (14.0-18.0); LYMPHOCYTES # 3.4 10^3/ul (0.8-2.9); LYMPHOCYTES % 31.3 % (15.0-51.0); MEAN CORPUSCULAR HEMOGLOBIN 27.8 pg (29.0-33.0); MEAN CORPUSCULAR HGB CONC 31.6 g/dl (32.0-37.0); MEAN CORPUSCULAR VOLUME 87.9 fl (82.0-101.0); MEAN PLATELET VOLUME 9.7 fl (7.4-10.4); MONOCYTE # 0.9 10^3/ul (0.3-0.9); NEUTROPHIL # 5.6 10^3/ul (1.6-7.5); NEUTROPHILS % 51.8 % (39.0-77.0); NUCLEATED RED BLOOD CELLS% 0.3 /100WBC (0.0-0.0); PLATELET COUNT 250 10^3/UL (140-415); POSITIVE DIFF @See below; RED BLOOD COUNT 4.71 10^6/ul (4.70-6.10); RED CELL DISTRIBUTION WIDTH 17.4 % (11.5-14.5)
[2018-09-25 06:24] LABS: ANION GAP 7 (5-13); BLOOD UREA NITROGEN 36 mg/dl (7-20); CALCIUM 8.1 mg/dl (8.4-10.2); CARBON DIOXIDE 18 mmol/L (21-31); CHLORIDE 111 mmol/L (97-110); CREATININE 2.92 mg/dl (0.61-1.24); Estimated GFR 23 mL/min (>60); GLUCOSE 102 mg/dl (70-220); POTASSIUM 4.7 mmol/L (3.5-5.1); SODIUM 136 mmol/L (135-144)
[2018-09-25] MEDS: ZINC SULFATE 220 MG CAP PO (08:28)
[2018-09-25] MEDS: MAGNESIUM HYDROXIDE 30ML CUP PO (08:28)
[2018-09-25] MEDS: MAGNESIUM OXIDE 400 MG TAB PO ×2 (08:28→21:20)
[2018-09-25] MEDS: SODIUM HYPOCHLORITE (1/40) 1 LITER BTL IRR (08:28)
[2018-09-25] MEDS: COLLAGENASE 5 GM (UD JAR) TOP (08:28)
[2018-09-25] MEDS: DOXYCYCLINE 100 MG TAB PO ×2 (08:28→21:20)
[2018-09-25] MEDS: CITRIC ACID/NA CITRATE 30 ML CUP PO (08:28)
[2018-09-25] MEDS: DOCUSATE SODIUM 100 MG CAP PO (08:28)
[2018-09-25] MEDS: MIDODRINE 5 MG TAB PO ×4 (08:29→22:47)
[2018-09-25] MEDS: CLOTRIMAZOLE 1% 30 GM CR TOP ×2 (08:30→21:21)
[2018-09-25] MEDS: CYCLOBENZAPRINE 10 MG TAB PO ×2 (11:23→14:23)
[2018-09-25] MEDS: LORAZEPAM 0.5 MG TAB PO (11:23)
[2018-09-25] MEDS: INSULIN GLARGINE [LANTus] (100 UNITS/ML) SYG SC (21:33)
[2018-09-25] MEDS: HYDROmorphONE 0.5 MG/0.5 ML SYG IV (23:32)
[2018-09-26] MEDS: METHADONE 5 MG TAB PO ×3 (05:09→20:20)
[2018-09-26] MEDS: LEVOTHYROXINE 50 MCG TAB PO (06:55)
[2018-09-26] MEDS: MAGNESIUM HYDROXIDE 30ML CUP PO (09:00)
[2018-09-26] MEDS: DOCUSATE SODIUM 100 MG CAP PO (09:00)
[2018-09-26] MEDS: CITRIC ACID/NA CITRATE 30 ML CUP PO (09:09)
[2018-09-26] MEDS: LORAZEPAM 0.5 MG TAB PO (09:10)
[2018-09-26] MEDS: MAGNESIUM OXIDE 400 MG TAB PO ×2 (09:10→20:21)
[2018-09-26] MEDS: DOXYCYCLINE 100 MG TAB PO ×2 (09:10→20:20)
[2018-09-26] MEDS: ZINC SULFATE 220 MG CAP PO (09:10)
[2018-09-26] MEDS: SODIUM HYPOCHLORITE (1/40) 1 LITER BTL IRR (09:17)
[2018-09-26] MEDS: COLLAGENASE 5 GM (UD JAR) TOP (09:18)
[2018-09-26] MEDS: CLOTRIMAZOLE 1% 30 GM CR TOP ×2 (09:18→21:20)
[2018-09-26] MEDS: HEPARIN 5,000 UNIT/1 ML VIAL SC ×2 (09:24→21:20)
[2018-09-26] MEDS: MIDODRINE 5 MG TAB PO ×2 (13:33→17:11)
[2018-09-26 14:33] LABS: ADD MAN DIFF? NO
[2018-09-26 14:53] LABS: BASOPHIL # 0.1 10^3/ul (0.0-0.1); BASOPHILS % 0.5 % (0.0-2.0); EOSINOPHILS # 0.8 10^3/ul (0.0-0.5); EOSINOPHILS % 7.7 % (0.0-7.0); HEMATOCRIT 34.6 % (42.0-52.0); HEMOGLOBIN 10.8 g/dl (14.0-18.0); LYMPHOCYTES # 3.1 10^3/ul (0.8-2.9); LYMPHOCYTES % 32.4 % (15.0-51.0); MEAN CORPUSCULAR HEMOGLOBIN 27.6 pg (29.0-33.0); MEAN CORPUSCULAR HGB CONC 31.2 g/dl (32.0-37.0); MEAN CORPUSCULAR VOLUME 88.3 fl (82.0-101.0); MEAN PLATELET VOLUME 8.6 fl (7.4-10.4); MONOCYTE # 0.6 10^3/ul (0.3-0.9); PLATELET COUNT 215 10^3/UL (140-415); RED BLOOD COUNT 3.92 10^6/ul (4.70-6.10); RED CELL DISTRIBUTION WIDTH 17.8 % (11.5-14.5)
[2018-09-26 14:53] LABS: WHITE BLOOD COUNT 9.7 10^3/ul (4.8-10.8)
[2018-09-26 14:56] LABS: ANION GAP 3 (5-13); BLOOD UREA NITROGEN 39 mg/dl (7-20); CALCIUM 7.9 mg/dl (8.4-10.2); CARBON DIOXIDE 20 mmol/L (21-31); CHLORIDE 110 mmol/L (97-110); CREATININE 3.05 mg/dl (0.61-1.24); Estimated GFR 22 mL/min (>60); GLUCOSE 150 mg/dl (70-220); POTASSIUM 4.3 mmol/L (3.5-5.1); SODIUM 133 mmol/L (135-144)
[2018-09-26] MEDS: HYDROmorphONE 2 MG/ML SYG IV (20:16)
[2018-09-26] MEDS: traZODone 50 MG TAB PO (20:20)
[2018-09-26] MEDS: INSULIN GLARGINE [LANTus] (100 UNITS/ML) SYG SC (21:20)
[2018-09-27] MEDS: HYDROmorphONE 2 MG/ML SYG IV ×6 (00:19→20:33)
[2018-09-27] MEDS: METHADONE 5 MG TAB PO ×3 (05:35→17:46)
[2018-09-27 06:21] LABS: ADD MAN DIFF? NO
[2018-09-27] MEDS: LEVOTHYROXINE 50 MCG TAB PO (06:22)
[2018-09-27 06:25] LABS: BASOPHIL # 0.1 10^3/ul (0.0-0.1); BASOPHILS % 0.8 % (0.0-2.0); EOSINOPHILS # 0.9 10^3/ul (0.0-0.5); EOSINOPHILS % 8.7 % (0.0-7.0); HEMATOCRIT 34.6 % (42.0-52.0); HEMOGLOBIN 10.7 g/dl (14.0-18.0); LYMPHOCYTES # 3.1 10^3/ul (0.8-2.9); MEAN CORPUSCULAR HEMOGLOBIN 27.4 pg (29.0-33.0); MEAN CORPUSCULAR HGB CONC 30.9 g/dl (32.0-37.0); MEAN CORPUSCULAR VOLUME 88.5 fl (82.0-101.0); MEAN PLATELET VOLUME 9.2 fl (7.4-10.4); MONOCYTE # 0.6 10^3/ul (0.3-0.9); MONOCYTES % 6.1 % (0.0-11.0); NEUTROPHIL # 5.6 10^3/ul (1.6-7.5); NEUTROPHILS % 53.4 % (39.0-77.0); PLATELET COUNT 196 10^3/UL (140-415); POSITIVE DIFF @See below; RED BLOOD COUNT 3.91 10^6/ul (4.70-6.10); RED CELL DISTRIBUTION WIDTH 17.6 % (11.5-14.5)
[2018-09-27 06:25] LABS: WHITE BLOOD COUNT 10.4 10^3/ul (4.8-10.8)
[2018-09-27 06:52] LABS: ANION GAP 3 (5-13); BLOOD UREA NITROGEN 41 mg/dl (7-20); CARBON DIOXIDE 20 mmol/L (21-31); CHLORIDE 110 mmol/L (97-110); CREATININE 3.18 mg/dl (0.61-1.24); Estimated GFR 21 mL/min (>60); GLUCOSE 61 mg/dl (70-220); POTASSIUM 4.4 mmol/L (3.5-5.1); SODIUM 133 mmol/L (135-144)
[2018-09-27 08:06] LABS: ANISOCYTOSIS 1+ (0-0); BURR CELLS 2+ (0-0); EOSINOPHILS % (M) 8 % (0-7); LYMPHOCYTES % (M) 29 % (15-51); METAMYELOCYTES #M 0.1 10^3/ul (0.0-0.0); METAMYELOCYTES %M 1 % (0-0); MICROCYTOSIS 1+ (0-0); MONOCYTE #M 0.2 10^3/ul (0.3-0.9); MONOCYTES % (M) 2 % (0-11); MYELOCYTES #M 0.1 10^3/ul (0.0-0.0); MYELOCYTES % (M) 1 % (0-0); PLATELET ESTIMATE NORMAL; POIKILOCYTOSIS 2+ (0-0); POLYCHROMASIA 2+ (0-0); SCHISTOCYTES 1+ (0-0); SEGMENTED NEUTROPHILS (M) % 59 % (39-77); SMUDGE%M 7 % (0-0); TARGET CELLS 1+ (0-0)
[2018-09-27] MEDS: ZINC SULFATE 220 MG CAP PO (08:23)
[2018-09-27] MEDS: DOXYCYCLINE 100 MG TAB PO ×2 (08:23→20:33)
[2018-09-27] MEDS: MAGNESIUM OXIDE 400 MG TAB PO ×2 (08:23→20:33)
[2018-09-27] MEDS: MIDODRINE 5 MG TAB PO ×3 (08:24→16:35)
[2018-09-27] MEDS: MAGNESIUM HYDROXIDE 30ML CUP PO (08:25)
[2018-09-27] MEDS: CLOTRIMAZOLE 1% 30 GM CR TOP ×2 (08:26→20:33)
[2018-09-27] MEDS: DOCUSATE SODIUM 100 MG CAP PO (08:26)
[2018-09-27] MEDS: CITRIC ACID/NA CITRATE 30 ML CUP PO (08:26)
[2018-09-27] MEDS: SODIUM HYPOCHLORITE (1/40) 1 LITER BTL IRR (08:26)
[2018-09-27] MEDS: COLLAGENASE 5 GM (UD JAR) TOP (08:27)
[2018-09-27] MEDS: HEPARIN 5,000 UNIT/1 ML VIAL SC ×2 (08:53→20:53)
[2018-09-27] MEDS: LORAZEPAM 0.5 MG TAB PO (10:37)
[2018-09-27] MEDS: GUAIFENESIN/DM 5ML CUP PO (19:19)
[2018-09-27] MEDS: ALBUTEROL/IPRATROPIUM (NEB) 3 ML AMP HHN (20:26)
[2018-09-27] MEDS: traZODone 50 MG TAB PO (20:33)
[2018-09-27] MEDS: INSULIN GLARGINE [LANTus] (100 UNITS/ML) SYG SC (20:54)
[2018-09-28] MEDS: METHADONE 5 MG TAB PO ×5 (00:09→23:48)
[2018-09-28] MEDS: HYDROmorphONE 2 MG/ML SYG IV ×6 (00:10→20:58)
[2018-09-28] MEDS: LEVOTHYROXINE 50 MCG TAB PO (06:04)
[2018-09-28] MEDS: MAGNESIUM OXIDE 400 MG TAB PO ×2 (08:33→20:55)
[2018-09-28] MEDS: DOCUSATE SODIUM 100 MG CAP PO (08:33)
[2018-09-28] MEDS: ZINC SULFATE 220 MG CAP PO (08:33)
[2018-09-28] MEDS: MAGNESIUM HYDROXIDE 30ML CUP PO (08:33)
[2018-09-28] MEDS: DOXYCYCLINE 100 MG TAB PO ×2 (08:33→20:55)
[2018-09-28] MEDS: CITRIC ACID/NA CITRATE 30 ML CUP PO (08:33)
[2018-09-28] MEDS: COLLAGENASE 5 GM (UD JAR) TOP (08:33)
[2018-09-28] MEDS: SODIUM HYPOCHLORITE (1/40) 1 LITER BTL IRR (08:37)
[2018-09-28] MEDS: CLOTRIMAZOLE 1% 30 GM CR TOP ×2 (08:37→21:09)
[2018-09-28] MEDS: HEPARIN 5,000 UNIT/1 ML VIAL SC ×2 (08:44→21:08)
[2018-09-28] MEDS: MIDODRINE 5 MG TAB PO ×3 (08:46→16:35)
[2018-09-28] MEDS: ALBUTEROL/IPRATROPIUM (NEB) 3 ML AMP HHN (14:50)
[2018-09-28] MEDS: traZODone 50 MG TAB PO (20:55)
[2018-09-28] MEDS: INSULIN GLARGINE [LANTus] (100 UNITS/ML) SYG SC (21:08)
[2018-09-29] MEDS: HYDROmorphONE 2 MG/ML SYG IV ×6 (00:53→21:57)
[2018-09-29] MEDS: ALBUTEROL/IPRATROPIUM (NEB) 3 ML AMP HHN ×2 (03:01→21:22)
[2018-09-29] MEDS: LEVOTHYROXINE 50 MCG TAB PO (06:12)
[2018-09-29] MEDS: METHADONE 5 MG TAB PO ×4 (06:12→23:30)
[2018-09-29 07:27] LABS: ANION GAP 5 (5-13); BLOOD UREA NITROGEN 48 mg/dl (7-20); CARBON DIOXIDE 21 mmol/L (21-31); CHLORIDE 108 mmol/L (97-110); Estimated GFR 18 mL/min (>60); GLUCOSE 87 mg/dl (70-220); POTASSIUM 4.2 mmol/L (3.5-5.1); SODIUM 134 mmol/L (135-144)
[2018-09-29 08:20] LABS: ERYTHROCYTE SEDIMENTATION RATE 77 mm/Hr (0-20)
[2018-09-29] MEDS: DOXYCYCLINE 100 MG TAB PO (08:24)
[2018-09-29] MEDS: MAGNESIUM OXIDE 400 MG TAB PO ×2 (08:24→20:11)
[2018-09-29] MEDS: CITRIC ACID/NA CITRATE 30 ML CUP PO (08:24)
[2018-09-29] MEDS: ZINC SULFATE 220 MG CAP PO (08:25)
[2018-09-29] MEDS: MIDODRINE 5 MG TAB PO ×3 (08:34→17:45)
[2018-09-29] MEDS: HEPARIN 5,000 UNIT/1 ML VIAL SC ×2 (08:40→20:24)
[2018-09-29] MEDS: MAGNESIUM HYDROXIDE 30ML CUP PO (09:00)
[2018-09-29] MEDS: DOCUSATE SODIUM 100 MG CAP PO (09:00)
[2018-09-29] MEDS: ONDANSETRON 4 MG TAB PO (13:21)
[2018-09-29] MEDS: FUROSEMIDE 40 MG INJ IV (13:22)
[2018-09-29] MEDS: COLLAGENASE 5 GM (UD JAR) TOP (17:48)
[2018-09-29] MEDS: SODIUM HYPOCHLORITE (1/40) 1 LITER BTL IRR (17:48)
[2018-09-29] MEDS: CLOTRIMAZOLE 1% 30 GM CR TOP ×2 (17:49→20:11)
[2018-09-29] MEDS: traZODone 50 MG TAB PO (20:12)
[2018-09-29] MEDS: INSULIN GLARGINE [LANTus] (100 UNITS/ML) SYG SC (20:23)
[2018-09-30] MEDS: HYDROmorphONE 2 MG/ML SYG IV ×4 (04:28→20:38)
[2018-09-30] MEDS: METHADONE 5 MG TAB PO ×4 (06:37→23:06)
[2018-09-30] MEDS: LEVOTHYROXINE 50 MCG TAB PO (06:37)
[2018-09-30] MEDS: DOCUSATE SODIUM 100 MG CAP PO (09:00)
[2018-09-30] MEDS: MIDODRINE 5 MG TAB PO ×3 (09:00→17:00)
[2018-09-30] MEDS: MAGNESIUM HYDROXIDE 30ML CUP PO (09:00)
[2018-09-30] MEDS: ZINC SULFATE 220 MG CAP PO (09:11)
[2018-09-30] MEDS: MAGNESIUM OXIDE 400 MG TAB PO ×2 (09:11→20:34)
[2018-09-30] MEDS: CITRIC ACID/NA CITRATE 30 ML CUP PO (09:12)
[2018-09-30] MEDS: FUROSEMIDE 40 MG INJ IV (09:14)
[2018-09-30] MEDS: HEPARIN 5,000 UNIT/1 ML VIAL SC ×2 (09:28→21:15)
[2018-09-30] MEDS: ALBUTEROL/IPRATROPIUM (NEB) 3 ML AMP HHN (17:13)
[2018-09-30] MEDS: COLLAGENASE 5 GM (UD JAR) TOP (17:38)
[2018-09-30] MEDS: CLOTRIMAZOLE 1% 30 GM CR TOP ×2 (17:38→21:13)
[2018-09-30] MEDS: SODIUM HYPOCHLORITE (1/40) 1 LITER BTL IRR (17:38)
[2018-09-30] MEDS: traZODone 50 MG TAB PO (20:35)
[2018-09-30] MEDS: INSULIN GLARGINE [LANTus] (100 UNITS/ML) SYG SC (20:50)
[2018-10-01] MEDS: HYDROmorphONE 2 MG/ML SYG IV ×3 (00:43→09:31)
[2018-10-01] MEDS: METHADONE 5 MG TAB PO ×3 (06:31→18:08)
[2018-10-01] MEDS: LEVOTHYROXINE 50 MCG TAB PO (06:31)
[2018-10-01 07:14] LABS: ADD MAN DIFF? NO
[2018-10-01 07:18] LABS: BASOPHIL # 0.1 10^3/ul (0.0-0.1); BASOPHILS % 0.7 % (0.0-2.0); EOSINOPHILS # 0.8 10^3/ul (0.0-0.5); EOSINOPHILS % 9.8 % (0.0-7.0); HEMOGLOBIN 9.8 g/dl (14.0-18.0); LYMPHOCYTES # 2.6 10^3/ul (0.8-2.9); LYMPHOCYTES % 31.2 % (15.0-51.0); MEAN CORPUSCULAR HEMOGLOBIN 27.8 pg (29.0-33.0); MEAN CORPUSCULAR HGB CONC 31.6 g/dl (32.0-37.0); MEAN CORPUSCULAR VOLUME 87.8 fl (82.0-101.0); MONOCYTE # 0.7 10^3/ul (0.3-0.9); MONOCYTES % 8.5 % (0.0-11.0); NEUTROPHIL # 4.1 10^3/ul (1.6-7.5); NEUTROPHILS % 49.1 % (39.0-77.0); PLATELET COUNT 202 10^3/UL (140-415); RED BLOOD COUNT 3.53 10^6/ul (4.70-6.10); RED CELL DISTRIBUTION WIDTH 17.7 % (11.5-14.5)
[2018-10-01 07:18] LABS: WHITE BLOOD COUNT 8.5 10^3/ul (4.8-10.8)
[2018-10-01 07:47] LABS: ANION GAP 4 (5-13); BLOOD UREA NITROGEN 52 mg/dl (7-20); CARBON DIOXIDE 21 mmol/L (21-31); CHLORIDE 110 mmol/L (97-110); CREATININE 3.57 mg/dl (0.61-1.24); Estimated GFR 18 mL/min (>60); GLUCOSE 76 mg/dl (70-220); SODIUM 135 mmol/L (135-144)
[2018-10-01] MEDS: ALBUTEROL/IPRATROPIUM (NEB) 3 ML AMP HHN ×2 (07:54→20:45)
[2018-10-01] MEDS: MAGNESIUM HYDROXIDE 30ML CUP PO ×2 (09:00→09:24)
[2018-10-01] MEDS: FUROSEMIDE 40 MG INJ IV (09:24)
[2018-10-01] MEDS: DOCUSATE SODIUM 100 MG CAP PO (09:25)
[2018-10-01] MEDS: ZINC SULFATE 220 MG CAP PO (09:25)
[2018-10-01] MEDS: MAGNESIUM OXIDE 400 MG TAB PO ×2 (09:25→22:09)
[2018-10-01] MEDS: HEPARIN 5,000 UNIT/1 ML VIAL SC ×2 (09:28→22:11)
[2018-10-01] MEDS: CITRIC ACID/NA CITRATE 30 ML CUP PO (09:31)
[2018-10-01] MEDS: MIDODRINE 5 MG TAB PO ×3 (09:43→18:10)
[2018-10-01] MEDS: CLOTRIMAZOLE 1% 30 GM CR TOP ×2 (09:51→22:13)
[2018-10-01] MEDS: COLLAGENASE 5 GM (UD JAR) TOP (09:51)
[2018-10-01] MEDS: SODIUM HYPOCHLORITE (1/40) 1 LITER BTL IRR (12:49)
[2018-10-01] MEDS: HYDROmorphONE 0.5 MG/0.5 ML SYG IV ×2 (17:33→21:55)
[2018-10-01] MEDS: INSULIN ASPART [NOVOLOG] 3 ML PEN SC ×2 (18:00→22:12)
[2018-10-01] MEDS ORDERED: HYDROmorphONE 0.5 MG/0.5 ML SYG IV (20:00)
[2018-10-01] MEDS: traZODone 50 MG TAB PO (22:09)
[2018-10-01] MEDS: INSULIN GLARGINE [LANTus] (100 UNITS/ML) SYG SC (22:12)
[2018-10-02] MEDS: METHADONE 5 MG TAB PO ×4 (01:16→17:40)
[2018-10-02] MEDS: ACCU-CHEK XX (02:00)
[2018-10-02] MEDS: LEVOTHYROXINE 50 MCG TAB PO (06:11)
[2018-10-02] MEDS: INSULIN ASPART [NOVOLOG] 3 ML PEN SC ×4 (08:00→20:51)
[2018-10-02] MEDS: SODIUM HYPOCHLORITE (1/40) 1 LITER BTL IRR (08:27)
[2018-10-02] MEDS: CITRIC ACID/NA CITRATE 30 ML CUP PO (08:28)
[2018-10-02] MEDS: FUROSEMIDE 20 MG INJ IV (08:29)
[2018-10-02] MEDS: MAGNESIUM HYDROXIDE 30ML CUP PO (08:29)
[2018-10-02] MEDS: ZINC SULFATE 220 MG CAP PO (08:30)
[2018-10-02] MEDS: MAGNESIUM OXIDE 400 MG TAB PO ×2 (08:30→20:48)
[2018-10-02] MEDS: DOCUSATE SODIUM 100 MG CAP PO (08:30)
[2018-10-02] MEDS: COLLAGENASE 5 GM (UD JAR) TOP (08:30)
[2018-10-02] MEDS: HEPARIN 5,000 UNIT/1 ML VIAL SC ×2 (08:33→20:50)
[2018-10-02] MEDS: MIDODRINE 5 MG TAB PO ×3 (08:34→17:00)
[2018-10-02] MEDS: CLOTRIMAZOLE 1% 30 GM CR TOP ×2 (08:35→20:51)
[2018-10-02] MEDS: ALBUTEROL/IPRATROPIUM (NEB) 3 ML AMP HHN (09:23)
[2018-10-02] MEDS: ALTEPLASE (CATHFLO) 2 MG INJ CATHETER (11:34)
[2018-10-02] MEDS: GUAIFENESIN/DM 5ML CUP PO ×2 (12:01→16:12)
[2018-10-02] MEDS: traZODone 50 MG TAB PO (20:48)
[2018-10-02] MEDS: INSULIN GLARGINE [LANTus] (100 UNITS/ML) SYG SC (20:50)
[2018-10-03] MEDS: METHADONE 5 MG TAB PO ×5 (00:33→23:49)
[2018-10-03] MEDS: ACCU-CHEK XX (02:00)
[2018-10-03] MEDS: LEVOTHYROXINE 50 MCG TAB PO (06:14)
[2018-10-03 07:50] LABS: ANION GAP 4 (5-13); BLOOD UREA NITROGEN 60 mg/dl (7-20); CALCIUM 8.2 mg/dl (8.4-10.2); CARBON DIOXIDE 23 mmol/L (21-31); CHLORIDE 108 mmol/L (97-110); CREATININE 3.65 mg/dl (0.61-1.24); Estimated GFR 18 mL/min (>60); POTASSIUM 3.7 mmol/L (3.5-5.1); SODIUM 135 mmol/L (135-144)
[2018-10-03 07:59] LABS: GLUCOSE 47 mg/dl (70-220)
[2018-10-03] MEDS: INSULIN ASPART [NOVOLOG] 3 ML PEN SC ×4 (08:00→21:00)
[2018-10-03] MEDS: CITRIC ACID/NA CITRATE 30 ML CUP PO (08:55)
[2018-10-03] MEDS: ZINC SULFATE 220 MG CAP PO (08:55)
[2018-10-03] MEDS: MAGNESIUM OXIDE 400 MG TAB PO ×2 (08:55→21:02)
[2018-10-03] MEDS: COLLAGENASE 5 GM (UD JAR) TOP (08:55)
[2018-10-03] MEDS: FUROSEMIDE 20 MG INJ IV (08:56)
[2018-10-03] MEDS: DOCUSATE SODIUM 100 MG CAP PO (08:56)
[2018-10-03] MEDS: MIDODRINE 5 MG TAB PO ×3 (08:56→17:20)
[2018-10-03] MEDS: MAGNESIUM HYDROXIDE 30ML CUP PO (08:56)
[2018-10-03] MEDS: SODIUM HYPOCHLORITE (1/40) 1 LITER BTL IRR (08:57)
[2018-10-03] MEDS: CLOTRIMAZOLE 1% 30 GM CR TOP ×2 (09:02→21:03)
[2018-10-03] MEDS: HEPARIN 5,000 UNIT/1 ML VIAL SC ×2 (09:02→21:05)
[2018-10-03] MEDS: ALBUTEROL/IPRATROPIUM (NEB) 3 ML AMP HHN ×2 (09:09→16:07)
[2018-10-03] MEDS: GUAIFENESIN/DM 5ML CUP PO (14:54)
[2018-10-03] MEDS: traZODone 50 MG TAB PO (21:02)
[2018-10-03] MEDS: INSULIN GLARGINE [LANTus] (100 UNITS/ML) SYG SC (21:04)
[2018-10-04] MEDS: ACCU-CHEK XX (01:57)
[2018-10-04] MEDS: LEVOTHYROXINE 50 MCG TAB PO (05:56)
[2018-10-04] MEDS: METHADONE 5 MG TAB PO ×4 (05:56→23:48)
[2018-10-04 06:22] LABS: ADD MAN DIFF? NO
[2018-10-04 06:28] LABS: BASOPHIL # 0.1 10^3/ul (0.0-0.1); BASOPHILS % 0.8 % (0.0-2.0); EOSINOPHILS # 0.7 10^3/ul (0.0-0.5); EOSINOPHILS % 9.4 % (0.0-7.0); HEMATOCRIT 31.7 % (42.0-52.0); HEMOGLOBIN 9.8 g/dl (14.0-18.0); LYMPHOCYTES # 2.1 10^3/ul (0.8-2.9); LYMPHOCYTES % 26.6 % (15.0-51.0); MEAN CORPUSCULAR HEMOGLOBIN 27.6 pg (29.0-33.0); MEAN CORPUSCULAR HGB CONC 30.9 g/dl (32.0-37.0); MEAN CORPUSCULAR VOLUME 89.3 fl (82.0-101.0); MEAN PLATELET VOLUME 8.2 fl (7.4-10.4); MONOCYTE # 0.7 10^3/ul (0.3-0.9); MONOCYTES % 8.2 % (0.0-11.0); NEUTROPHIL # 4.3 10^3/ul (1.6-7.5); NEUTROPHILS % 54.5 % (39.0-77.0); PLATELET COUNT 190 10^3/UL (140-415); RED BLOOD COUNT 3.55 10^6/ul (4.70-6.10); RED CELL DISTRIBUTION WIDTH 17.2 % (11.5-14.5)
[2018-10-04 06:28] LABS: WHITE BLOOD COUNT 7.9 10^3/ul (4.8-10.8)
[2018-10-04 06:53] LABS: ANION GAP 5 (5-13); BLOOD UREA NITROGEN 59 mg/dl (7-20); CALCIUM 8.2 mg/dl (8.4-10.2); CARBON DIOXIDE 22 mmol/L (21-31); CHLORIDE 109 mmol/L (97-110); CREATININE 3.63 mg/dl (0.61-1.24); Estimated GFR 18 mL/min (>60); GLUCOSE 59 mg/dl (70-220); POTASSIUM 3.9 mmol/L (3.5-5.1); SODIUM 136 mmol/L (135-144)
[2018-10-04] MEDS: INSULIN ASPART [NOVOLOG] 3 ML PEN SC ×4 (08:00→20:50)
[2018-10-04] MEDS: SODIUM HYPOCHLORITE (1/40) 1 LITER BTL IRR (08:51)
[2018-10-04] MEDS: CITRIC ACID/NA CITRATE 30 ML CUP PO (08:59)
[2018-10-04] MEDS: FUROSEMIDE 20 MG INJ IV ×2 (08:59→17:31)
[2018-10-04] MEDS: MAGNESIUM HYDROXIDE 30ML CUP PO (08:59)
[2018-10-04] MEDS: ZINC SULFATE 220 MG CAP PO (09:00)
[2018-10-04] MEDS: DOCUSATE SODIUM 100 MG CAP PO (09:00)
[2018-10-04] MEDS: MIDODRINE 5 MG TAB PO ×3 (09:00→17:00)
[2018-10-04] MEDS: MAGNESIUM OXIDE 400 MG TAB PO ×2 (09:00→20:48)
[2018-10-04] MEDS: COLLAGENASE 5 GM (UD JAR) TOP (09:01)
[2018-10-04] MEDS: CLOTRIMAZOLE 1% 30 GM CR TOP ×2 (09:01→20:51)
[2018-10-04] MEDS: HEPARIN 5,000 UNIT/1 ML VIAL SC ×2 (09:03→20:50)
[2018-10-04] MEDS: HYDROmorphONE 0.5 MG/0.5 ML SYG IV (20:43)
[2018-10-04] MEDS: traZODone 50 MG TAB PO (20:48)
[2018-10-04] MEDS: INSULIN GLARGINE [LANTus] (100 UNITS/ML) SYG SC (20:49)
[2018-10-05] MEDS: ACCU-CHEK XX (01:11)
[2018-10-05] MEDS: METHADONE 5 MG TAB PO ×4 (05:57→23:46)
[2018-10-05] MEDS: LEVOTHYROXINE 50 MCG TAB PO (06:00)
[2018-10-05] MEDS: GUAIFENESIN/DM 5ML CUP PO (07:46)
[2018-10-05] MEDS: INSULIN ASPART [NOVOLOG] 3 ML PEN SC ×4 (08:00→21:00)
[2018-10-05] MEDS: FUROSEMIDE 20 MG INJ IV ×2 (08:54→17:28)
[2018-10-05] MEDS: MIDODRINE 5 MG TAB PO ×3 (08:54→17:28)
[2018-10-05] MEDS: DOCUSATE SODIUM 100 MG CAP PO ×2 (08:54→08:55)
[2018-10-05] MEDS: CITRIC ACID/NA CITRATE 30 ML CUP PO (08:54)
[2018-10-05] MEDS: MAGNESIUM HYDROXIDE 30ML CUP PO (08:54)
[2018-10-05] MEDS: HEPARIN 5,000 UNIT/1 ML VIAL SC ×2 (08:55→21:01)
[2018-10-05] MEDS: ZINC SULFATE 220 MG CAP PO (08:55)
[2018-10-05] MEDS: MAGNESIUM OXIDE 400 MG TAB PO ×2 (08:55→21:02)
[2018-10-05] MEDS: ALBUTEROL/IPRATROPIUM (NEB) 3 ML AMP HHN ×2 (10:34→20:49)
[2018-10-05] MEDS: HYDROmorphONE 0.5 MG/0.5 ML SYG IV ×3 (11:13→20:56)
[2018-10-05] MEDS: CLOTRIMAZOLE 1% 30 GM CR TOP ×2 (16:30→21:03)
[2018-10-05] MEDS: COLLAGENASE 5 GM (UD JAR) TOP (16:30)
[2018-10-05] MEDS: SODIUM HYPOCHLORITE (1/40) 1 LITER BTL IRR (16:30)
[2018-10-05] MEDS: INSULIN GLARGINE [LANTus] (100 UNITS/ML) SYG SC (21:01)
[2018-10-05] MEDS: traZODone 50 MG TAB PO (21:02)
[2018-10-06] MEDS: ACCU-CHEK XX (01:36)
[2018-10-06] MEDS: LEVOTHYROXINE 50 MCG TAB PO (06:12)
[2018-10-06] MEDS: METHADONE 5 MG TAB PO (06:12)
[2018-10-06] MEDS: INSULIN ASPART [NOVOLOG] 3 ML PEN SC ×4 (08:00→21:00)
[2018-10-06] MEDS: MAGNESIUM OXIDE 400 MG TAB PO ×2 (08:16→21:03)
[2018-10-06] MEDS: ZINC SULFATE 220 MG CAP PO (08:17)
[2018-10-06] MEDS: COLLAGENASE 5 GM (UD JAR) TOP (08:18)
[2018-10-06] MEDS: SODIUM HYPOCHLORITE (1/40) 1 LITER BTL IRR (08:18)
[2018-10-06] MEDS: CITRIC ACID/NA CITRATE 30 ML CUP PO (08:18)
[2018-10-06] MEDS: CLOTRIMAZOLE 1% 30 GM CR TOP ×2 (08:19→21:10)
[2018-10-06] MEDS: FUROSEMIDE 20 MG INJ IV (08:19)
[2018-10-06] MEDS: MIDODRINE 5 MG TAB PO ×3 (08:24→17:11)
[2018-10-06] MEDS: HYDROmorphONE 0.5 MG/0.5 ML SYG IV (08:24)
[2018-10-06] MEDS: MAGNESIUM HYDROXIDE 30ML CUP PO (08:28)
[2018-10-06] MEDS: HEPARIN 5,000 UNIT/1 ML VIAL SC ×2 (08:33→21:08)
[2018-10-06] MEDS: GUAIFENESIN/DM 5ML CUP PO (08:44)
[2018-10-06] MEDS: ALBUTEROL/IPRATROPIUM (NEB) 3 ML AMP HHN ×2 (10:48→19:16)
[2018-10-06] MEDS: CYCLOBENZAPRINE 10 MG TAB PO (11:22)
[2018-10-06] MEDS: METHADONE (1 MG/ML 5 ML PO UD SYG) PO ×2 (12:30→17:12)
[2018-10-06] MEDS: traZODone 50 MG TAB PO (21:03)
[2018-10-07] MEDS: METHADONE (1 MG/ML 5 ML PO UD SYG) PO ×5 (00:10→23:45)
[2018-10-07] MEDS: ACCU-CHEK XX (02:00)
[2018-10-07] MEDS: LEVOTHYROXINE 50 MCG TAB PO (05:53)
[2018-10-07 07:07] LABS: ANION GAP 4 (5-13); BLOOD UREA NITROGEN 63 mg/dl (7-20); CALCIUM 8.2 mg/dl (8.4-10.2); CARBON DIOXIDE 25 mmol/L (21-31); CHLORIDE 108 mmol/L (97-110); CREATININE 3.62 mg/dl (0.61-1.24); Estimated GFR 18 mL/min (>60); GLUCOSE 54 mg/dl (70-220); SODIUM 137 mmol/L (135-144)
[2018-10-07] MEDS: INSULIN ASPART [NOVOLOG] 3 ML PEN SC ×4 (08:00→20:17)
[2018-10-07] MEDS: ZINC SULFATE 220 MG CAP PO (08:21)
[2018-10-07] MEDS: FUROSEMIDE 20 MG INJ IV (08:22)
[2018-10-07] MEDS: CITRIC ACID/NA CITRATE 30 ML CUP PO (08:22)
[2018-10-07] MEDS: MAGNESIUM OXIDE 400 MG TAB PO ×2 (08:22→20:16)
[2018-10-07] MEDS: MIDODRINE 5 MG TAB PO ×3 (08:22→17:20)
[2018-10-07] MEDS: HEPARIN 5,000 UNIT/1 ML VIAL SC ×2 (08:30→20:19)
[2018-10-07] MEDS: SODIUM HYPOCHLORITE (1/40) 1 LITER BTL IRR (08:30)
[2018-10-07] MEDS: COLLAGENASE 5 GM (UD JAR) TOP (08:30)
[2018-10-07] MEDS: DOCUSATE SODIUM 100 MG CAP PO (08:31)
[2018-10-07] MEDS: CLOTRIMAZOLE 1% 30 GM CR TOP ×2 (08:31→20:20)
[2018-10-07] MEDS: MAGNESIUM HYDROXIDE 30ML CUP PO (08:31)
[2018-10-07] MEDS: GUAIFENESIN/DM 5ML CUP PO (14:41)
[2018-10-07] MEDS: [UNRECOGNIZED DRUG - REMARK] XX (17:24)
[2018-10-07] MEDS: traZODone 50 MG TAB PO (20:16)
[2018-10-08] MEDS: ACCU-CHEK XX ×2 (00:30→20:45)
[2018-10-08] MEDS: [UNRECOGNIZED DRUG - REMARK] XX ×3 (01:04→17:30)
[2018-10-08] MEDS: LEVOTHYROXINE 50 MCG TAB PO (06:03)
[2018-10-08] MEDS: METHADONE (1 MG/ML 5 ML PO UD SYG) PO ×3 (06:04→18:08)
[2018-10-08] MEDS: INSULIN ASPART [NOVOLOG] 3 ML PEN SC ×4 (08:00→20:45)
[2018-10-08] MEDS: DOCUSATE SODIUM 100 MG CAP PO (09:00)
[2018-10-08] MEDS: MAGNESIUM HYDROXIDE 30ML CUP PO (09:00)
[2018-10-08] MEDS: HEPARIN 5,000 UNIT/1 ML VIAL SC ×2 (09:11→20:53)
[2018-10-08] MEDS: ZINC SULFATE 220 MG CAP PO (09:12)
[2018-10-08] MEDS: MIDODRINE 5 MG TAB PO ×3 (09:12→18:06)
[2018-10-08] MEDS: MAGNESIUM OXIDE 400 MG TAB PO ×2 (09:12→20:44)
[2018-10-08] MEDS: FUROSEMIDE 20 MG TAB PO (09:13)
[2018-10-08] MEDS: CITRIC ACID/NA CITRATE 30 ML CUP PO (09:13)
[2018-10-08] MEDS: COLLAGENASE 5 GM (UD JAR) TOP (09:14)
[2018-10-08] MEDS: SODIUM HYPOCHLORITE (1/40) 1 LITER BTL IRR (09:28)
[2018-10-08] MEDS: CLOTRIMAZOLE 1% 30 GM CR TOP ×2 (09:29→21:08)
[2018-10-08] MEDS: GUAIFENESIN/DM 5ML CUP PO (20:43)
[2018-10-08] MEDS: CYCLOBENZAPRINE 10 MG TAB PO (20:43)
[2018-10-08] MEDS: HYDROmorphONE 0.5 MG/0.5 ML SYG IV (20:45)
[2018-10-08] MEDS: traZODone 50 MG TAB PO (20:53)
[2018-10-09] MEDS: METHADONE (1 MG/ML 5 ML PO UD SYG) PO ×5 (00:01→23:41)
[2018-10-09] MEDS: [UNRECOGNIZED DRUG - REMARK] XX ×3 (01:30→17:04)
[2018-10-09] MEDS: GUAIFENESIN/DM 5ML CUP PO (05:59)
[2018-10-09] MEDS: HYDROmorphONE 0.5 MG/0.5 ML SYG IV ×2 (06:00→23:43)
[2018-10-09] MEDS: LEVOTHYROXINE 50 MCG TAB PO (06:00)
[2018-10-09 06:38] LABS: ANION GAP 3 (5-13); BLOOD UREA NITROGEN 58 mg/dl (7-20); CARBON DIOXIDE 26 mmol/L (21-31); CHLORIDE 104 mmol/L (97-110); CREATININE 3.62 mg/dl (0.61-1.24); Estimated GFR 18 mL/min (>60); GLUCOSE 59 mg/dl (70-220); POTASSIUM 4.1 mmol/L (3.5-5.1); SODIUM 133 mmol/L (135-144)
[2018-10-09] MEDS: INSULIN ASPART [NOVOLOG] 3 ML PEN SC ×4 (08:00→21:00)
[2018-10-09] MEDS: SODIUM HYPOCHLORITE (1/40) 1 LITER BTL IRR ×2 (08:24)
[2018-10-09] MEDS: CITRIC ACID/NA CITRATE 30 ML CUP PO (08:25)
[2018-10-09] MEDS: COLLAGENASE 5 GM (UD JAR) TOP ×2 (08:25)
[2018-10-09] MEDS: MAGNESIUM HYDROXIDE 30ML CUP PO (08:26)
[2018-10-09] MEDS: ZINC SULFATE 220 MG CAP PO (08:26)
[2018-10-09] MEDS: MIDODRINE 5 MG TAB PO ×3 (08:26→17:22)
[2018-10-09] MEDS: MAGNESIUM OXIDE 400 MG TAB PO ×2 (08:26→21:06)
[2018-10-09] MEDS: FUROSEMIDE 20 MG TAB PO (08:27)
[2018-10-09] MEDS: DOCUSATE SODIUM 100 MG CAP PO (08:27)
[2018-10-09] MEDS: HEPARIN 5,000 UNIT/1 ML VIAL SC ×2 (08:30→21:07)
[2018-10-09] MEDS: CYCLOBENZAPRINE 10 MG TAB PO (08:32)
[2018-10-09] MEDS: CLOTRIMAZOLE 1% 30 GM CR TOP ×2 (08:32→21:11)
[2018-10-09] MEDS: DEXTROSE 50% 50 ML SYRINGE IV (09:21)
[2018-10-09 10:40] LABS: ADD MAN DIFF? NO
[2018-10-09 10:42] LABS: WHITE BLOOD COUNT 9.5 10^3/ul (4.8-10.8)
[2018-10-09 10:42] LABS: BASOPHIL # 0.1 10^3/ul (0.0-0.1); EOSINOPHILS # 0.8 10^3/ul (0.0-0.5); EOSINOPHILS % 8.4 % (0.0-7.0); HEMATOCRIT 34.4 % (42.0-52.0); HEMOGLOBIN 10.4 g/dl (14.0-18.0); LYMPHOCYTES # 1.7 10^3/ul (0.8-2.9); MEAN CORPUSCULAR HEMOGLOBIN 27.2 pg (29.0-33.0); MEAN CORPUSCULAR HGB CONC 30.2 g/dl (32.0-37.0); MEAN CORPUSCULAR VOLUME 90.1 fl (82.0-101.0); MEAN PLATELET VOLUME 8.2 fl (7.4-10.4); MONOCYTE # 0.6 10^3/ul (0.3-0.9); MONOCYTES % 5.8 % (0.0-11.0); NEUTROPHIL # 6.3 10^3/ul (1.6-7.5); NEUTROPHILS % 66.6 % (39.0-77.0); PLATELET COUNT 264 10^3/UL (140-415); RED BLOOD COUNT 3.82 10^6/ul (4.70-6.10); RED CELL DISTRIBUTION WIDTH 16.5 % (11.5-14.5)
[2018-10-09 11:24] LABS: ANION GAP 3 (5-13); BLOOD UREA NITROGEN 58 mg/dl (7-20); CALCIUM 7.8 mg/dl (8.4-10.2); CARBON DIOXIDE 25 mmol/L (21-31); CHLORIDE 107 mmol/L (97-110); CREATININE 3.55 mg/dl (0.61-1.24); Estimated GFR 18 mL/min (>60); GLUCOSE 93 mg/dl (70-220); POTASSIUM 3.9 mmol/L (3.5-5.1); SODIUM 135 mmol/L (135-144)
[2018-10-09] MEDS: ONDANSETRON 4 MG INJ IV (12:34)
[2018-10-09] MEDS: traZODone 50 MG TAB PO (21:06)
[2018-10-10] MEDS: [UNRECOGNIZED DRUG - REMARK] XX ×3 (01:30→17:18)
[2018-10-10] MEDS: ACCU-CHEK XX (02:00)
[2018-10-10] MEDS: LEVOTHYROXINE 50 MCG TAB PO (06:03)
[2018-10-10] MEDS: METHADONE (1 MG/ML 5 ML PO UD SYG) PO ×4 (06:04→23:36)
[2018-10-10] MEDS: INSULIN ASPART [NOVOLOG] 3 ML PEN SC ×4 (08:00→20:06)
[2018-10-10] MEDS: HYDROmorphONE 0.5 MG/0.5 ML SYG IV (08:12)
[2018-10-10] MEDS: MAGNESIUM OXIDE 400 MG TAB PO ×2 (08:12→21:32)
[2018-10-10] MEDS: FUROSEMIDE 20 MG TAB PO (08:13)
[2018-10-10] MEDS: MIDODRINE 5 MG TAB PO ×3 (08:13→17:16)
[2018-10-10] MEDS: ZINC SULFATE 220 MG CAP PO (08:13)
[2018-10-10] MEDS: DOCUSATE SODIUM 100 MG CAP PO (08:13)
[2018-10-10] MEDS: COLLAGENASE 5 GM (UD JAR) TOP (08:14)
[2018-10-10] MEDS: SODIUM HYPOCHLORITE (1/40) 1 LITER BTL IRR (08:14)
[2018-10-10] MEDS: CLOTRIMAZOLE 1% 30 GM CR TOP (08:14)
[2018-10-10] MEDS: HEPARIN 5,000 UNIT/1 ML VIAL SC ×2 (08:15→21:32)
[2018-10-10] MEDS: MAGNESIUM HYDROXIDE 30ML CUP PO (08:20)
[2018-10-10] MEDS: GUAIFENESIN/DM 5ML CUP PO (10:52)
[2018-10-10] MEDS: ONDANSETRON 4 MG INJ IV (10:52)
[2018-10-10] MEDS: traZODone 50 MG TAB PO (21:33)
[2018-10-11] MEDS: [UNRECOGNIZED DRUG - REMARK] XX ×2 (00:36→09:30)
[2018-10-11] MEDS: ACCU-CHEK XX (01:30)
[2018-10-11] MEDS: HYDROmorphONE 0.5 MG/0.5 ML SYG IV ×3 (01:39→21:15)
[2018-10-11] MEDS: LEVOTHYROXINE 50 MCG TAB PO (06:13)
[2018-10-11] MEDS: METHADONE (1 MG/ML 5 ML PO UD SYG) PO ×3 (06:13→17:58)
[2018-10-11] MEDS: INSULIN ASPART [NOVOLOG] 3 ML PEN SC ×4 (08:00→20:43)
[2018-10-11] MEDS: DEXTROSE 50% 50 ML SYRINGE IV (08:48)
[2018-10-11] MEDS: HEPARIN 5,000 UNIT/1 ML VIAL SC ×2 (09:00→20:48)
[2018-10-11] MEDS: DOCUSATE SODIUM 100 MG CAP PO (09:01)
[2018-10-11] MEDS: ZINC SULFATE 220 MG CAP PO (09:01)
[2018-10-11] MEDS: MAGNESIUM HYDROXIDE 30ML CUP PO (09:01)
[2018-10-11] MEDS: MAGNESIUM OXIDE 400 MG TAB PO ×3 (09:02→20:54)
[2018-10-11] MEDS: FUROSEMIDE 20 MG TAB PO (09:02)
[2018-10-11] MEDS: SODIUM HYPOCHLORITE (1/40) 1 LITER BTL IRR (09:05)
[2018-10-11] MEDS: COLLAGENASE 5 GM (UD JAR) TOP (09:06)
[2018-10-11] MEDS: MIDODRINE 5 MG TAB PO ×3 (09:07→17:00)
[2018-10-11] MEDS: DEXTROSE 5% 1,000 ML IV (13:00)
[2018-10-11] MEDS: traZODone 50 MG TAB PO ×2 (20:46→20:54)
[2018-10-11] MEDS: GUAIFENESIN/DM 5ML CUP PO (22:11)
[2018-10-12] MEDS: METHADONE (1 MG/ML 5 ML PO UD SYG) PO ×4 (00:21→17:13)
[2018-10-12] MEDS: ACCU-CHEK XX (02:00)
[2018-10-12] MEDS: ALBUTEROL/IPRATROPIUM (NEB) 3 ML AMP HHN ×3 (05:19→18:19)
[2018-10-12] MEDS: LEVOTHYROXINE 50 MCG TAB PO (06:15)
[2018-10-12 06:51] LABS: ADD MAN DIFF? NO
[2018-10-12 06:58] LABS: WHITE BLOOD COUNT 10.6 10^3/ul (4.8-10.8)
[2018-10-12 06:58] LABS: BASOPHIL # 0.1 10^3/ul (0.0-0.1); BASOPHILS % 0.6 % (0.0-2.0); EOSINOPHILS # 0.5 10^3/ul (0.0-0.5); EOSINOPHILS % 4.3 % (0.0-7.0); HEMATOCRIT 34.4 % (42.0-52.0); HEMOGLOBIN 10.4 g/dl (14.0-18.0); LYMPHOCYTES # 2.7 10^3/ul (0.8-2.9); LYMPHOCYTES % 25.5 % (15.0-51.0); MEAN CORPUSCULAR HEMOGLOBIN 27.2 pg (29.0-33.0); MEAN CORPUSCULAR HGB CONC 30.2 g/dl (32.0-37.0); MEAN CORPUSCULAR VOLUME 89.8 fl (82.0-101.0); MEAN PLATELET VOLUME 8.4 fl (7.4-10.4); MONOCYTE # 1.1 10^3/ul (0.3-0.9); MONOCYTES % 10.8 % (0.0-11.0); NEUTROPHIL # 6.2 10^3/ul (1.6-7.5); NEUTROPHILS % 58.3 % (39.0-77.0); PLATELET COUNT 300 10^3/UL (140-415); RED BLOOD COUNT 3.83 10^6/ul (4.70-6.10); RED CELL DISTRIBUTION WIDTH 16.3 % (11.5-14.5)
[2018-10-12 07:43] LABS: ANION GAP 5 (5-13); BLOOD UREA NITROGEN 55 mg/dl (7-20); CALCIUM 7.7 mg/dl (8.4-10.2); CARBON DIOXIDE 24 mmol/L (21-31); CHLORIDE 106 mmol/L (97-110); CREATININE 3.87 mg/dl (0.61-1.24); Estimated GFR 16 mL/min (>60); GLUCOSE 56 mg/dl (70-220); POTASSIUM 4.1 mmol/L (3.5-5.1); SODIUM 135 mmol/L (135-144)
[2018-10-12] MEDS: INSULIN ASPART [NOVOLOG] 3 ML PEN SC ×4 (08:00→20:31)
[2018-10-12] MEDS: DOCUSATE SODIUM 100 MG CAP PO ×2 (08:45→08:54)
[2018-10-12] MEDS: ZINC SULFATE 220 MG CAP PO (08:45)
[2018-10-12] MEDS: MAGNESIUM OXIDE 400 MG TAB PO ×2 (08:46→20:30)
[2018-10-12] MEDS: COLLAGENASE 5 GM (UD JAR) TOP (08:46)
[2018-10-12] MEDS: FUROSEMIDE 20 MG TAB PO (08:46)
[2018-10-12] MEDS: MAGNESIUM HYDROXIDE 30ML CUP PO (08:46)
[2018-10-12] MEDS: HEPARIN 5,000 UNIT/1 ML VIAL SC ×2 (08:47→20:29)
[2018-10-12] MEDS: SODIUM HYPOCHLORITE (1/40) 1 LITER BTL IRR (08:48)
[2018-10-12] MEDS: MIDODRINE 5 MG TAB PO ×3 (08:56→17:00)
[2018-10-12] MEDS: traZODone 50 MG TAB PO (20:30)
[2018-10-13] MEDS: METHADONE (1 MG/ML 5 ML PO UD SYG) PO ×4 (00:19→17:48)
[2018-10-13] MEDS: ALBUTEROL/IPRATROPIUM (NEB) 3 ML AMP HHN (01:31)
[2018-10-13] MEDS: ACCU-CHEK XX (02:00)
[2018-10-13] MEDS: LEVOTHYROXINE 50 MCG TAB PO (06:05)
[2018-10-13] MEDS: INSULIN ASPART [NOVOLOG] 3 ML PEN SC ×4 (08:00→20:49)
[2018-10-13] MEDS: COLLAGENASE 5 GM (UD JAR) TOP (08:39)
[2018-10-13] MEDS: HYDROmorphONE 0.5 MG/0.5 ML SYG IV ×2 (08:39→12:45)
[2018-10-13] MEDS: DOCUSATE SODIUM 100 MG CAP PO (08:39)
[2018-10-13] MEDS: MAGNESIUM OXIDE 400 MG TAB PO ×2 (08:40→20:54)
[2018-10-13] MEDS: ZINC SULFATE 220 MG CAP PO (08:40)
[2018-10-13] MEDS: MIDODRINE 5 MG TAB PO ×3 (08:40→17:00)
[2018-10-13] MEDS: MAGNESIUM HYDROXIDE 30ML CUP PO (08:40)
[2018-10-13] MEDS: FUROSEMIDE 20 MG TAB PO (08:41)
[2018-10-13] MEDS: HEPARIN 5,000 UNIT/1 ML VIAL SC ×2 (08:49→20:54)
[2018-10-13] MEDS: GUAIFENESIN/DM 5ML CUP PO (12:43)
[2018-10-13] MEDS: SODIUM HYPOCHLORITE (1/40) 1 LITER BTL IRR (12:44)
[2018-10-13] MEDS: traZODone 50 MG TAB PO (20:54)
[2018-10-14] MEDS: METHADONE (1 MG/ML 5 ML PO UD SYG) PO ×5 (00:41→23:46)
[2018-10-14] MEDS: ACCU-CHEK XX (02:00)
[2018-10-14] MEDS: LEVOTHYROXINE 50 MCG TAB PO (06:24)
[2018-10-14] MEDS: INSULIN ASPART [NOVOLOG] 3 ML PEN SC ×4 (08:00→20:25)
[2018-10-14] MEDS: MIDODRINE 5 MG TAB PO ×3 (09:00→17:00)
[2018-10-14] MEDS: MAGNESIUM HYDROXIDE 30ML CUP PO (09:16)
[2018-10-14] MEDS: HEPARIN 5,000 UNIT/1 ML VIAL SC ×2 (09:17→20:27)
[2018-10-14] MEDS: MAGNESIUM OXIDE 400 MG TAB PO ×2 (09:18→20:25)
[2018-10-14] MEDS: DOCUSATE SODIUM 100 MG CAP PO (09:18)
[2018-10-14] MEDS: FUROSEMIDE 20 MG TAB PO (09:18)
[2018-10-14] MEDS: ZINC SULFATE 220 MG CAP PO (09:19)
[2018-10-14] MEDS: SODIUM HYPOCHLORITE (1/40) 1 LITER BTL IRR (09:22)
[2018-10-14] MEDS: COLLAGENASE 5 GM (UD JAR) TOP (09:57)
[2018-10-14] MEDS: HYDROmorphONE 0.5 MG/0.5 ML SYG IV ×2 (15:31→20:25)
[2018-10-14] MEDS: traZODone 50 MG TAB PO (20:25)
[2018-10-15] MEDS: ACCU-CHEK XX (02:00)
[2018-10-15] MEDS: HYDROmorphONE 0.5 MG/0.5 ML SYG IV ×2 (05:15→15:15)
[2018-10-15] MEDS: LEVOTHYROXINE 75 MCG TAB PO (06:04)
[2018-10-15] MEDS: METHADONE (1 MG/ML 5 ML PO UD SYG) PO ×3 (06:04→17:50)
[2018-10-15 06:40] LABS: ADD MAN DIFF? NO
[2018-10-15 06:56] LABS: BASOPHIL # 0.1 10^3/ul (0.0-0.1); BASOPHILS % 0.8 % (0.0-2.0); EOSINOPHILS # 1.2 10^3/ul (0.0-0.5); EOSINOPHILS % 14.1 % (0.0-7.0); LYMPHOCYTES # 2.3 10^3/ul (0.8-2.9); LYMPHOCYTES % 27.9 % (15.0-51.0); MEAN CORPUSCULAR HEMOGLOBIN 27.2 pg (29.0-33.0); MEAN CORPUSCULAR HGB CONC 30.3 g/dl (32.0-37.0); MEAN CORPUSCULAR VOLUME 89.7 fl (82.0-101.0); MEAN PLATELET VOLUME 8.1 fl (7.4-10.4); MONOCYTE # 0.8 10^3/ul (0.3-0.9); MONOCYTES % 9.1 % (0.0-11.0); NEUTROPHILS % 47.4 % (39.0-77.0); PLATELET COUNT 249 10^3/UL (140-415); RED BLOOD COUNT 3.68 10^6/ul (4.70-6.10); RED CELL DISTRIBUTION WIDTH 15.9 % (11.5-14.5)
[2018-10-15 06:56] LABS: WHITE BLOOD COUNT 8.4 10^3/ul (4.8-10.8)
[2018-10-15 07:18] LABS: ALANINE AMINOTRANSFERASE 9 IU/L (13-69); ALBUMIN 1.7 g/dl (3.3-4.9); ALBUMIN/GLOBULIN RATIO 0.77; ALKALINE PHOSPHATASE 160 IU/L (42-121); ANION GAP 2 (5-13); ASPARTATE AMINO TRANSFERASE 15 IU/L (15-46); BLOOD UREA NITROGEN 56 mg/dl (7-20); CALCIUM 7.4 mg/dl (8.4-10.2); CARBON DIOXIDE 27 mmol/L (21-31); CHLORIDE 105 mmol/L (97-110); CREATININE 4.24 mg/dl (0.61-1.24); Estimated GFR 15 mL/min (>60); GLUCOSE 64 mg/dl (70-220); POTASSIUM 4.2 mmol/L (3.5-5.1); SODIUM 134 mmol/L (135-144); TOTAL PROTEIN 3.9 g/dl (6.1-8.1)
[2018-10-15] MEDS: INSULIN ASPART [NOVOLOG] 3 ML PEN SC ×4 (08:00→20:49)
[2018-10-15] MEDS: ZINC SULFATE 220 MG CAP PO (08:13)
[2018-10-15] MEDS: FUROSEMIDE 20 MG TAB PO (08:13)
[2018-10-15] MEDS: DOCUSATE SODIUM 100 MG CAP PO (08:13)
[2018-10-15] MEDS: MAGNESIUM HYDROXIDE 30ML CUP PO (08:13)
[2018-10-15] MEDS: MAGNESIUM OXIDE 400 MG TAB PO ×2 (08:13→20:46)
[2018-10-15] MEDS: HEPARIN 5,000 UNIT/1 ML VIAL SC ×2 (08:14→20:48)
[2018-10-15] MEDS: MIDODRINE 5 MG TAB PO ×3 (08:14→17:50)
[2018-10-15] MEDS: SODIUM HYPOCHLORITE (1/40) 1 LITER BTL IRR (08:15)
[2018-10-15] MEDS: COLLAGENASE 5 GM (UD JAR) TOP (08:15)
[2018-10-15] MEDS: CYCLOBENZAPRINE 10 MG TAB PO (20:46)
[2018-10-15] MEDS: traZODone 50 MG TAB PO (20:47)
[2018-10-15] MEDS: GUAIFENESIN/DM 5ML CUP PO (20:47)
[2018-10-16] MEDS: BISACODYL (EC) 5 MG TAB PO (00:28)
[2018-10-16] MEDS: METHADONE (1 MG/ML 5 ML PO UD SYG) PO ×5 (00:28→23:22)
[2018-10-16] MEDS: ACCU-CHEK XX (02:00)
[2018-10-16] MEDS: LEVOTHYROXINE 75 MCG TAB PO (06:27)
[2018-10-16 07:27] LABS: ADD MAN DIFF? NO
[2018-10-16 07:40] LABS: BASOPHILS % 0.4 % (0.0-2.0); EOSINOPHILS % 15.1 % (0.0-7.0); HEMATOCRIT 31.4 % (42.0-52.0); HEMOGLOBIN 9.4 g/dl (14.0-18.0); LYMPHOCYTES # 2.4 10^3/ul (0.8-2.9); LYMPHOCYTES % 35.7 % (15.0-51.0); MEAN CORPUSCULAR HEMOGLOBIN 26.9 pg (29.0-33.0); MEAN CORPUSCULAR HGB CONC 29.9 g/dl (32.0-37.0); MEAN PLATELET VOLUME 7.9 fl (7.4-10.4); MONOCYTE # 0.7 10^3/ul (0.3-0.9); MONOCYTES % 9.6 % (0.0-11.0); NEUTROPHIL # 2.6 10^3/ul (1.6-7.5); NEUTROPHILS % 38.2 % (39.0-77.0); PLATELET COUNT 221 10^3/UL (140-415); RED BLOOD COUNT 3.49 10^6/ul (4.70-6.10); RED CELL DISTRIBUTION WIDTH 15.8 % (11.5-14.5)
[2018-10-16 07:40] LABS: WHITE BLOOD COUNT 6.8 10^3/ul (4.8-10.8)
[2018-10-16 07:52] LABS: ANION GAP 5 (5-13); BLOOD UREA NITROGEN 58 mg/dl (7-20); CALCIUM 7.3 mg/dl (8.4-10.2); CARBON DIOXIDE 27 mmol/L (21-31); CHLORIDE 103 mmol/L (97-110); CREATININE 4.08 mg/dl (0.61-1.24); Estimated GFR 15 mL/min (>60); GLUCOSE 63 mg/dl (70-220); POTASSIUM 4.1 mmol/L (3.5-5.1); SODIUM 135 mmol/L (135-144)
[2018-10-16] MEDS: INSULIN ASPART [NOVOLOG] 3 ML PEN SC ×4 (08:00→21:00)
[2018-10-16] MEDS: COLLAGENASE 5 GM (UD JAR) TOP (08:15)
[2018-10-16] MEDS: ZINC SULFATE 220 MG CAP PO (08:16)
[2018-10-16] MEDS: FUROSEMIDE 20 MG TAB PO (08:16)
[2018-10-16] MEDS: MAGNESIUM OXIDE 400 MG TAB PO ×2 (08:16→20:38)
[2018-10-16] MEDS: MIDODRINE 5 MG TAB PO ×3 (08:16→17:00)
[2018-10-16] MEDS: SODIUM HYPOCHLORITE (1/40) 1 LITER BTL IRR (08:17)
[2018-10-16] MEDS: DOCUSATE SODIUM 100 MG CAP PO (08:17)
[2018-10-16] MEDS: MAGNESIUM HYDROXIDE 30ML CUP PO (08:17)
[2018-10-16] MEDS: HEPARIN 5,000 UNIT/1 ML VIAL SC ×2 (08:25→20:40)
[2018-10-16] MEDS: traZODone 50 MG TAB PO (20:38)
[2018-10-16] MEDS: HYDROmorphONE 0.5 MG/0.5 ML SYG IV (20:44)
[2018-10-16] MEDS: ALBUMIN HUMAN 25% 50 ML IV (23:21)
[2018-10-17] MEDS: ACCU-CHEK XX (02:00)
[2018-10-17] MEDS: METHADONE (1 MG/ML 5 ML PO UD SYG) PO ×3 (06:07→18:07)
[2018-10-17] MEDS: LEVOTHYROXINE 75 MCG TAB PO (06:07)
[2018-10-17] MEDS: INSULIN ASPART [NOVOLOG] 3 ML PEN SC ×4 (08:00→20:58)
[2018-10-17] MEDS: COLLAGENASE 5 GM (UD JAR) TOP (08:28)
[2018-10-17] MEDS: ZINC SULFATE 220 MG CAP PO (08:29)
[2018-10-17] MEDS: MAGNESIUM OXIDE 400 MG TAB PO ×2 (08:29→20:45)
[2018-10-17] MEDS: FUROSEMIDE 20 MG TAB PO (08:29)
[2018-10-17] MEDS: DOCUSATE SODIUM 100 MG CAP PO (08:29)
[2018-10-17] MEDS: MIDODRINE 5 MG TAB PO ×3 (08:30→17:00)
[2018-10-17] MEDS: MAGNESIUM HYDROXIDE 30ML CUP PO (08:30)
[2018-10-17] MEDS: SODIUM HYPOCHLORITE (1/40) 1 LITER BTL IRR (08:31)
[2018-10-17] MEDS: BARIUM SULF 2% 450 ML BTL (BERRY SMOOTHIE) PO (08:31)
[2018-10-17] MEDS: HEPARIN 5,000 UNIT/1 ML VIAL SC ×2 (08:32→20:47)
[2018-10-17 09:21] LABS: B-TYPE NATRIURETIC PEPTIDE 2080 PG/ML (0-125)
[2018-10-17] MEDS: ALBUTEROL/IPRATROPIUM (NEB) 3 ML AMP HHN (16:08)
[2018-10-17] MEDS: HYDROmorphONE 0.5 MG/0.5 ML SYG IV (18:08)
[2018-10-17] MEDS: traZODone 50 MG TAB PO (20:46)
[2018-10-18] MEDS: METHADONE (1 MG/ML 5 ML PO UD SYG) PO ×4 (00:14→18:08)
[2018-10-18] MEDS: ACCU-CHEK XX (02:00)
[2018-10-18] MEDS: LEVOTHYROXINE 75 MCG TAB PO (06:16)
[2018-10-18] MEDS: INSULIN ASPART [NOVOLOG] 3 ML PEN SC ×4 (08:00→20:55)
[2018-10-18] MEDS: HYDROmorphONE 0.5 MG/0.5 ML SYG IV ×3 (08:17→20:56)
[2018-10-18 08:27] LABS: ADD MAN DIFF? NO
[2018-10-18 08:29] LABS: BASOPHIL # 0.1 10^3/ul (0.0-0.1); BASOPHILS % 0.6 % (0.0-2.0); EOSINOPHILS # 0.7 10^3/ul (0.0-0.5); EOSINOPHILS % 9.2 % (0.0-7.0); HEMATOCRIT 30.8 % (42.0-52.0); HEMOGLOBIN 9.3 g/dl (14.0-18.0); LYMPHOCYTES # 2.4 10^3/ul (0.8-2.9); LYMPHOCYTES % 29.8 % (15.0-51.0); MEAN CORPUSCULAR HEMOGLOBIN 27.2 pg (29.0-33.0); MEAN CORPUSCULAR HGB CONC 30.2 g/dl (32.0-37.0); MEAN CORPUSCULAR VOLUME 90.1 fl (82.0-101.0); MEAN PLATELET VOLUME 7.7 fl (7.4-10.4); MONOCYTE # 0.6 10^3/ul (0.3-0.9); MONOCYTES % 7.3 % (0.0-11.0); NEUTROPHIL # 4.1 10^3/ul (1.6-7.5); NEUTROPHILS % 51.7 % (39.0-77.0); PLATELET COUNT 190 10^3/UL (140-415); RED BLOOD COUNT 3.42 10^6/ul (4.70-6.10); RED CELL DISTRIBUTION WIDTH 15.8 % (11.5-14.5)
[2018-10-18 08:29] LABS: WHITE BLOOD COUNT 7.9 10^3/ul (4.8-10.8)
[2018-10-18 09:01] LABS: ALANINE AMINOTRANSFERASE 16 IU/L (13-69); ALBUMIN 1.7 g/dl (3.3-4.9); ALBUMIN/GLOBULIN RATIO 0.77; ALKALINE PHOSPHATASE 132 IU/L (42-121); ANION GAP 3 (5-13); ASPARTATE AMINO TRANSFERASE 13 IU/L (15-46); BLOOD UREA NITROGEN 56 mg/dl (7-20); CALCIUM 7.4 mg/dl (8.4-10.2); CARBON DIOXIDE 25 mmol/L (21-31); CHLORIDE 107 mmol/L (97-110); Estimated GFR 15 mL/min (>60); GLUCOSE 76 mg/dl (70-220); POTASSIUM 4.1 mmol/L (3.5-5.1); SODIUM 135 mmol/L (135-144); TOTAL PROTEIN 3.9 g/dl (6.1-8.1)
[2018-10-18 09:04] LABS: FREE T3 3.17 pg/ml (2.77-5.27)
[2018-10-18 09:04] LABS: FREE T4 (FREE THYROXINE) 1.08 ng/dl (0.64-1.79)
[2018-10-18] MEDS: MIDODRINE 5 MG TAB PO ×3 (09:50→17:00)
[2018-10-18] MEDS: MAGNESIUM HYDROXIDE 30ML CUP PO (09:53)
[2018-10-18] MEDS: HEPARIN 5,000 UNIT/1 ML VIAL SC ×2 (09:54→20:54)
[2018-10-18] MEDS: ZINC SULFATE 220 MG CAP PO (09:54)
[2018-10-18] MEDS: MAGNESIUM OXIDE 400 MG TAB PO ×2 (09:55→20:54)
[2018-10-18] MEDS: DOCUSATE SODIUM 100 MG CAP PO (09:55)
[2018-10-18] MEDS: FUROSEMIDE 20 MG TAB PO (09:55)
[2018-10-18] MEDS: COLLAGENASE 5 GM (UD JAR) TOP (10:09)
[2018-10-18] MEDS: SODIUM HYPOCHLORITE (1/40) 1 LITER BTL IRR (10:09)
[2018-10-18] MEDS: traZODone 50 MG TAB PO (20:55)
[2018-10-19] MEDS: METHADONE (1 MG/ML 5 ML PO UD SYG) PO ×5 (00:10→23:39)
[2018-10-19] MEDS: ACCU-CHEK XX (02:00)
[2018-10-19] MEDS: LEVOTHYROXINE 75 MCG TAB PO (06:18)
[2018-10-19] MEDS: INSULIN ASPART [NOVOLOG] 3 ML PEN SC ×4 (08:00→21:00)
[2018-10-19 08:40] LABS: ADD MAN DIFF? NO; HEMOGLOBIN 9.5 g/dl (14.0-18.0); MEAN CORPUSCULAR VOLUME 89.6 fl (82.0-101.0); RED BLOOD COUNT 3.46 10^6/ul (4.70-6.10)
[2018-10-19 08:41] LABS: BASOPHILS % 0.4 % (0.0-2.0); EOSINOPHILS # 0.8 10^3/ul (0.0-0.5); EOSINOPHILS % 8.5 % (0.0-7.0); LYMPHOCYTES # 2.3 10^3/ul (0.8-2.9); LYMPHOCYTES % 25.2 % (15.0-51.0); MEAN CORPUSCULAR HEMOGLOBIN 27.5 pg (29.0-33.0); MEAN CORPUSCULAR HGB CONC 30.6 g/dl (32.0-37.0); MEAN PLATELET VOLUME 8.4 fl (7.4-10.4); MONOCYTE # 0.7 10^3/ul (0.3-0.9); MONOCYTES % 7.4 % (0.0-11.0); NEUTROPHIL # 5.1 10^3/ul (1.6-7.5); NEUTROPHILS % 56.8 % (39.0-77.0); PLATELET COUNT 163 10^3/UL (140-415); RED CELL DISTRIBUTION WIDTH 15.8 % (11.5-14.5)
[2018-10-19] MEDS: MAGNESIUM HYDROXIDE 30ML CUP PO (08:50)
[2018-10-19] MEDS: DOCUSATE SODIUM 100 MG CAP PO (08:50)
[2018-10-19] MEDS: MIDODRINE 5 MG TAB PO ×3 (08:53→17:00)
[2018-10-19] MEDS: MAGNESIUM OXIDE 400 MG TAB PO ×2 (08:59→21:10)
[2018-10-19] MEDS: FUROSEMIDE 20 MG TAB PO (08:59)
[2018-10-19] MEDS: ZINC SULFATE 220 MG CAP PO (08:59)
[2018-10-19] MEDS: HEPARIN 5,000 UNIT/1 ML VIAL SC ×2 (09:00→21:12)
[2018-10-19] MEDS: COLLAGENASE 5 GM (UD JAR) TOP (09:00)
[2018-10-19] MEDS: SODIUM HYPOCHLORITE (1/40) 1 LITER BTL IRR (09:00)
[2018-10-19 09:07] LABS: ANION GAP 6 (5-13); BLOOD UREA NITROGEN 55 mg/dl (7-20); CALCIUM 7.3 mg/dl (8.4-10.2); CARBON DIOXIDE 26 mmol/L (21-31); CHLORIDE 104 mmol/L (97-110); CREATININE 3.98 mg/dl (0.61-1.24); Estimated GFR 16 mL/min (>60); GLUCOSE 59 mg/dl (70-220); POTASSIUM 3.9 mmol/L (3.5-5.1); SODIUM 136 mmol/L (135-144)
[2018-10-19] MEDS: FUROSEMIDE 40 MG INJ IV ×2 (14:00→20:00)
[2018-10-19] MEDS: HYDROmorphONE 0.5 MG/0.5 ML SYG IV (15:56)
[2018-10-19] MEDS: ALBUTEROL/IPRATROPIUM (NEB) 3 ML AMP HHN (18:05)
[2018-10-19] MEDS: ALBUMIN HUMAN 25% 100 ML IV ×2 (18:28→21:00)
[2018-10-19] MEDS: traZODone 50 MG TAB PO (21:31)
[2018-10-20] MEDS: HYDROmorphONE 0.5 MG/0.5 ML SYG IV ×4 (01:48→16:43)
[2018-10-20] MEDS: ACCU-CHEK XX (02:00)
[2018-10-20] MEDS: SODIUM HYPOCHLORITE (1/40) 1 LITER BTL IRR ×2 (04:55→16:42)
[2018-10-20] MEDS: COLLAGENASE 5 GM (UD JAR) TOP ×2 (04:57→12:27)
[2018-10-20] MEDS: LEVOTHYROXINE 75 MCG TAB PO (06:22)
[2018-10-20] MEDS: METHADONE (1 MG/ML 5 ML PO UD SYG) PO ×3 (06:57→18:01)
[2018-10-20] MEDS: MIDODRINE 5 MG TAB PO ×3 (09:00→17:00)
[2018-10-20] MEDS: GLUCOSE GEL 15 GRAM TUBE PO (09:20)
[2018-10-20] MEDS: DOCUSATE SODIUM 100 MG CAP PO (09:38)
[2018-10-20] MEDS: MAGNESIUM HYDROXIDE 30ML CUP PO (09:39)
[2018-10-20] MEDS: HEPARIN 5,000 UNIT/1 ML VIAL SC ×2 (09:40→21:02)
[2018-10-20] MEDS: ZINC SULFATE 220 MG CAP PO (09:40)
[2018-10-20] MEDS: FUROSEMIDE 40 MG INJ IV ×2 (09:56→23:08)
[2018-10-20] MEDS: ALBUMIN HUMAN 25% 100 ML IV ×2 (09:56→20:59)
[2018-10-20] MEDS: ONDANSETRON 4 MG INJ IV (10:21)
[2018-10-20] MEDS: INSULIN ASPART [NOVOLOG] 3 ML PEN SC ×4 (10:30→20:57)
[2018-10-20] MEDS: MAGNESIUM OXIDE 400 MG TAB PO ×2 (10:47→21:00)
[2018-10-20] MEDS: ALBUTEROL/IPRATROPIUM (NEB) 3 ML AMP HHN (16:06)
[2018-10-20] MEDS: traZODone 50 MG TAB PO (21:00)
[2018-10-21] MEDS: METHADONE (1 MG/ML 5 ML PO UD SYG) PO ×4 (00:31→17:59)
[2018-10-21] MEDS: ACCU-CHEK XX (02:00)
[2018-10-21] MEDS: LEVOTHYROXINE 75 MCG TAB PO (06:20)
[2018-10-21] MEDS: INSULIN ASPART [NOVOLOG] 3 ML PEN SC ×4 (08:00→21:00)
[2018-10-21] MEDS: MAGNESIUM OXIDE 400 MG TAB PO ×2 (08:42→21:03)
[2018-10-21] MEDS: ZINC SULFATE 220 MG CAP PO (08:42)
[2018-10-21] MEDS: COLLAGENASE 5 GM (UD JAR) TOP (08:42)
[2018-10-21] MEDS: MIDODRINE 5 MG TAB PO ×3 (08:46→17:00)
[2018-10-21] MEDS: ALBUMIN HUMAN 25% 100 ML IV ×2 (08:48→21:03)
[2018-10-21] MEDS: HEPARIN 5,000 UNIT/1 ML VIAL SC ×2 (08:55→21:06)
[2018-10-21] MEDS: MAGNESIUM HYDROXIDE 30ML CUP PO (08:56)
[2018-10-21] MEDS: DOCUSATE SODIUM 100 MG CAP PO (08:57)
[2018-10-21] MEDS: SODIUM HYPOCHLORITE (1/40) 1 LITER BTL IRR (08:57)
[2018-10-21] MEDS: FUROSEMIDE 40 MG INJ IV ×2 (10:52→22:53)
[2018-10-21] MEDS: HYDROmorphONE 0.5 MG/0.5 ML SYG IV ×2 (16:49→21:36)
[2018-10-21] MEDS: BALSAM PERU/CASTOR OIL 60 GM TUBE TOP (21:04)
[2018-10-21] MEDS: traZODone 50 MG TAB PO (21:36)
[2018-10-22] MEDS: ACCU-CHEK XX (02:00)
[2018-10-22] MEDS: COLLAGENASE 5 GM (UD JAR) TOP ×4 (03:05→21:12)
[2018-10-22] MEDS: SODIUM HYPOCHLORITE (1/40) 1 LITER BTL IRR ×2 (03:13→08:25)
[2018-10-22] MEDS: LEVOTHYROXINE 100 MCG TAB PO (06:40)
[2018-10-22] MEDS: METHADONE (1 MG/ML 5 ML PO UD SYG) PO ×4 (06:41→17:29)
[2018-10-22] MEDS: INSULIN ASPART [NOVOLOG] 3 ML PEN SC ×4 (08:00→21:00)
[2018-10-22] MEDS: DOCUSATE SODIUM 100 MG CAP PO (08:26)
[2018-10-22] MEDS: ZINC SULFATE 220 MG CAP PO (08:27)
[2018-10-22] MEDS: AMLODIPINE 10 MG TAB PO (08:27)
[2018-10-22] MEDS: MAGNESIUM OXIDE 400 MG TAB PO ×2 (08:27→21:11)
[2018-10-22] MEDS: HYDROmorphONE 0.5 MG/0.5 ML SYG IV (08:27)
[2018-10-22] MEDS: MAGNESIUM HYDROXIDE 30ML CUP PO (08:28)
[2018-10-22] MEDS: HEPARIN 5,000 UNIT/1 ML VIAL SC ×2 (08:28→21:11)
[2018-10-22] MEDS: MIDODRINE 5 MG TAB PO ×3 (08:28→17:00)
[2018-10-22 08:36] LABS: ADD MAN DIFF? NO
[2018-10-22 08:49] LABS: BASOPHILS % 0.2 % (0.0-2.0); EOSINOPHILS # 0.5 10^3/ul (0.0-0.5); EOSINOPHILS % 4.4 % (0.0-7.0); HEMATOCRIT 24.2 % (42.0-52.0); HEMOGLOBIN 7.3 g/dl (14.0-18.0); LYMPHOCYTES # 1.2 10^3/ul (0.8-2.9); LYMPHOCYTES % 11.2 % (15.0-51.0); MEAN CORPUSCULAR HEMOGLOBIN 27.2 pg (29.0-33.0); MEAN CORPUSCULAR HGB CONC 30.2 g/dl (32.0-37.0); MEAN CORPUSCULAR VOLUME 90.3 fl (82.0-101.0); MEAN PLATELET VOLUME 8.6 fl (7.4-10.4); MONOCYTE # 0.4 10^3/ul (0.3-0.9); MONOCYTES % 3.2 % (0.0-11.0); NEUTROPHIL # 8.8 10^3/ul (1.6-7.5); NEUTROPHILS % 79.9 % (39.0-77.0); PLATELET COUNT 150 10^3/UL (140-415); RED BLOOD COUNT 2.68 10^6/ul (4.70-6.10); RED CELL DISTRIBUTION WIDTH 15.7 % (11.5-14.5)
[2018-10-22] MEDS: BALSAM PERU/CASTOR OIL 60 GM TUBE TOP ×2 (09:00→21:12)
[2018-10-22 09:07] LABS: INR 0.95; PROTIME 12.8 Sec (11.9-14.9)
[2018-10-22 09:08] LABS: PARTIAL THROMBOPLASTIN TIME 44.5 Sec (23.0-35.0)
[2018-10-22 09:20] LABS: ALANINE AMINOTRANSFERASE 13 IU/L (13-69); ALBUMIN 2.1 g/dl (3.3-4.9); ALKALINE PHOSPHATASE 97 IU/L (42-121); ANION GAP 7 (5-13); ASPARTATE AMINO TRANSFERASE 10 IU/L (15-46); BLOOD UREA NITROGEN 56 mg/dl (7-20); CALCIUM 7.5 mg/dl (8.4-10.2); CARBON DIOXIDE 24 mmol/L (21-31); CHLORIDE 106 mmol/L (97-110); Estimated GFR 15 mL/min (>60); GLUCOSE 78 mg/dl (70-220); POTASSIUM 3.7 mmol/L (3.5-5.1); SODIUM 137 mmol/L (135-144); TOTAL PROTEIN 4.2 g/dl (6.1-8.1)
[2018-10-22 09:22] LABS: MAGNESIUM 3.6 mg/dl (1.7-2.5)
[2018-10-22] MEDS: LIDOCAINE 1% (MPF) 5 ML VIAL (09:52)
[2018-10-22 10:47] LABS: FLD TYPE THORACENTHESIS
[2018-10-22 10:48] LABS: FLD COLOR YELLOW; FLD PMN% 87.6 %; FLD RBC 2000 /uL; FLD WBC 18706 /cmm
[2018-10-22 10:56] LABS: FLUID LD 563 U/L; FLUID TOTAL PROTEIN < 2.0 g/dl; FLUID TYPE THORACENTESIS FLUID
[2018-10-22] MEDS: ONDANSETRON 4 MG INJ IV (11:00)
[2018-10-22 11:24] LABS: FLD CLARITY CLOUDY
[2018-10-22 12:44] LABS: FLD MN% 12.4 %
[2018-10-22] MEDS: traZODone 50 MG TAB PO (21:11)
[2018-10-22 21:14] LABS: HEMATOCRIT 28.3 % (42.0-52.0); HEMOGLOBIN 8.7 g/dl (14.0-18.0)
[2018-10-23] MEDS: METHADONE (1 MG/ML 5 ML PO UD SYG) PO ×5 (00:28→23:28)
[2018-10-23] MEDS: ACCU-CHEK XX (01:21)
[2018-10-23] MEDS: HYDROmorphONE 0.5 MG/0.5 ML SYG IV ×2 (05:06→21:19)
[2018-10-23 05:58] LABS: ADD MAN DIFF? NO
[2018-10-23 06:20] LABS: WHITE BLOOD COUNT 11.3 10^3/ul (4.8-10.8)
[2018-10-23 06:20] LABS: BASOPHILS % 0.3 % (0.0-2.0); EOSINOPHILS # 0.3 10^3/ul (0.0-0.5); EOSINOPHILS % 2.9 % (0.0-7.0); HEMATOCRIT 25.6 % (42.0-52.0); LYMPHOCYTES # 1.4 10^3/ul (0.8-2.9); LYMPHOCYTES % 12.5 % (15.0-51.0); MEAN CORPUSCULAR HEMOGLOBIN 27.7 pg (29.0-33.0); MEAN CORPUSCULAR HGB CONC 31.3 g/dl (32.0-37.0); MEAN CORPUSCULAR VOLUME 88.6 fl (82.0-101.0); MEAN PLATELET VOLUME 8.8 fl (7.4-10.4); MONOCYTE # 0.4 10^3/ul (0.3-0.9); MONOCYTES % 3.3 % (0.0-11.0); NEUTROPHIL # 9.1 10^3/ul (1.6-7.5); NEUTROPHILS % 80.3 % (39.0-77.0); PLATELET COUNT 181 10^3/UL (140-415); RED BLOOD COUNT 2.89 10^6/ul (4.70-6.10); RED CELL DISTRIBUTION WIDTH 15.7 % (11.5-14.5)
[2018-10-23] MEDS: LEVOTHYROXINE 100 MCG TAB PO (06:29)
[2018-10-23 06:38] LABS: ANION GAP 8 (5-13); BLOOD UREA NITROGEN 60 mg/dl (7-20); CALCIUM 7.4 mg/dl (8.4-10.2); CARBON DIOXIDE 26 mmol/L (21-31); CHLORIDE 104 mmol/L (97-110); CREATININE 4.16 mg/dl (0.61-1.24); Estimated GFR 15 mL/min (>60); GLUCOSE 92 mg/dl (70-220); POTASSIUM 3.7 mmol/L (3.5-5.1); SODIUM 138 mmol/L (135-144)
[2018-10-23] MEDS: INSULIN ASPART [NOVOLOG] 3 ML PEN SC ×4 (08:00→21:00)
[2018-10-23] MEDS: MAGNESIUM OXIDE 400 MG TAB PO ×2 (08:44→21:19)
[2018-10-23] MEDS: MIDODRINE 5 MG TAB PO ×3 (08:44→17:18)
[2018-10-23] MEDS: MAGNESIUM HYDROXIDE 30ML CUP PO (08:44)
[2018-10-23] MEDS: COLLAGENASE 5 GM (UD JAR) TOP ×2 (08:44→21:18)
[2018-10-23] MEDS: DOCUSATE SODIUM 100 MG CAP PO (08:44)
[2018-10-23] MEDS: HEPARIN 5,000 UNIT/1 ML VIAL SC ×2 (08:46→21:22)
[2018-10-23] MEDS: AMLODIPINE 10 MG TAB PO (08:46)
[2018-10-23] MEDS: ZINC SULFATE 220 MG CAP PO (08:47)
[2018-10-23] MEDS: BALSAM PERU/CASTOR OIL 60 GM TUBE TOP ×2 (10:48→21:22)
[2018-10-23] MEDS: SODIUM HYPOCHLORITE (1/40) 1 LITER BTL IRR (12:25)
[2018-10-23] MEDS: ONDANSETRON 4 MG INJ IV (18:48)
[2018-10-23] MEDS: traZODone 50 MG TAB PO (21:19)
[2018-10-24] MEDS: ACCU-CHEK XX (01:06)
[2018-10-24] MEDS: HYDROmorphONE 0.5 MG/0.5 ML SYG IV ×4 (01:22→20:46)
[2018-10-24] MEDS: METHADONE (1 MG/ML 5 ML PO UD SYG) PO ×3 (05:45→17:40)
[2018-10-24] MEDS: LEVOTHYROXINE 100 MCG TAB PO (06:00)
[2018-10-24] MEDS: INSULIN ASPART [NOVOLOG] 3 ML PEN SC ×4 (08:00→20:58)
[2018-10-24] MEDS: HEPARIN 5,000 UNIT/1 ML VIAL SC ×2 (08:45→20:58)
[2018-10-24] MEDS: ZINC SULFATE 220 MG CAP PO (08:51)
[2018-10-24] MEDS: MAGNESIUM HYDROXIDE 30ML CUP PO ×2 (08:51→08:55)
[2018-10-24] MEDS: MAGNESIUM OXIDE 400 MG TAB PO ×2 (08:51→20:46)
[2018-10-24] MEDS: DOCUSATE SODIUM 100 MG CAP PO (08:51)
[2018-10-24] MEDS: MIDODRINE 5 MG TAB PO ×3 (08:52→17:00)
[2018-10-24] MEDS: AMLODIPINE 10 MG TAB PO (08:53)
[2018-10-24] MEDS: BALSAM PERU/CASTOR OIL 60 GM TUBE TOP ×2 (09:30→21:00)
[2018-10-24] MEDS ORDERED: BUMETANIDE IV (14:00)
[2018-10-24] MEDS ORDERED: DEXTROSE 5% IV (14:00)
[2018-10-24 14:29] LABS: ADD MAN DIFF? NO
[2018-10-24 14:32] LABS: WHITE BLOOD COUNT 10.9 10^3/ul (4.8-10.8)
[2018-10-24 14:32] LABS: BASOPHILS % 0.4 % (0.0-2.0); EOSINOPHILS # 0.4 10^3/ul (0.0-0.5); EOSINOPHILS % 3.7 % (0.0-7.0); HEMATOCRIT 27.1 % (42.0-52.0); HEMOGLOBIN 8.4 g/dl (14.0-18.0); LYMPHOCYTES # 1.5 10^3/ul (0.8-2.9); MEAN CORPUSCULAR HEMOGLOBIN 27.3 pg (29.0-33.0); MEAN PLATELET VOLUME 8.3 fl (7.4-10.4); MONOCYTE # 0.4 10^3/ul (0.3-0.9); MONOCYTES % 3.3 % (0.0-11.0); NEUTROPHIL # 8.5 10^3/ul (1.6-7.5); PLATELET COUNT 233 10^3/UL (140-415); RED BLOOD COUNT 3.08 10^6/ul (4.70-6.10); RED CELL DISTRIBUTION WIDTH 15.8 % (11.5-14.5)
[2018-10-24] MEDS: BUMETANIDE IV (14:40)
[2018-10-24] MEDS: D5W IV (14:40)
[2018-10-24 14:59] LABS: ANION GAP 6 (5-13); BLOOD UREA NITROGEN 62 mg/dl (7-20); CALCIUM 7.3 mg/dl (8.4-10.2); CARBON DIOXIDE 25 mmol/L (21-31); CHLORIDE 102 mmol/L (97-110); CREATININE 4.38 mg/dl (0.61-1.24); Estimated GFR 14 mL/min (>60); GLUCOSE 71 mg/dl (70-220); POTASSIUM 4.2 mmol/L (3.5-5.1); SODIUM 133 mmol/L (135-144)
[2018-10-24] MEDS: COLLAGENASE 5 GM (UD JAR) TOP ×2 (16:30→20:59)
[2018-10-24] MEDS: SODIUM HYPOCHLORITE (1/40) 1 LITER BTL IRR (17:39)
[2018-10-24] MEDS: traZODone 50 MG TAB PO (20:46)
[2018-10-25] MEDS: METHADONE (1 MG/ML 5 ML PO UD SYG) PO ×4 (00:48→17:49)
[2018-10-25] MEDS: ACCU-CHEK XX (01:05)
[2018-10-25] MEDS: LEVOTHYROXINE 100 MCG TAB PO (06:26)
[2018-10-25 07:08] LABS: ADD MAN DIFF? NO
[2018-10-25 07:15] LABS: WHITE BLOOD COUNT 11.5 10^3/ul (4.8-10.8)
[2018-10-25 07:15] LABS: BASOPHILS % 0.3 % (0.0-2.0); EOSINOPHILS # 0.5 10^3/ul (0.0-0.5); EOSINOPHILS % 4.2 % (0.0-7.0); HEMATOCRIT 26.9 % (42.0-52.0); HEMOGLOBIN 8.2 g/dl (14.0-18.0); LYMPHOCYTES # 1.8 10^3/ul (0.8-2.9); LYMPHOCYTES % 15.8 % (15.0-51.0); MEAN CORPUSCULAR HEMOGLOBIN 26.8 pg (29.0-33.0); MEAN CORPUSCULAR HGB CONC 30.5 g/dl (32.0-37.0); MEAN CORPUSCULAR VOLUME 87.9 fl (82.0-101.0); MEAN PLATELET VOLUME 8.4 fl (7.4-10.4); MONOCYTE # 0.5 10^3/ul (0.3-0.9); MONOCYTES % 3.9 % (0.0-11.0); NEUTROPHIL # 8.6 10^3/ul (1.6-7.5); NEUTROPHILS % 75.1 % (39.0-77.0); PLATELET COUNT 265 10^3/UL (140-415); RED BLOOD COUNT 3.06 10^6/ul (4.70-6.10); RED CELL DISTRIBUTION WIDTH 16.1 % (11.5-14.5)
[2018-10-25 07:33] LABS: ANION GAP 4 (5-13); BLOOD UREA NITROGEN 63 mg/dl (7-20); CALCIUM 7.2 mg/dl (8.4-10.2); CARBON DIOXIDE 25 mmol/L (21-31); CHLORIDE 104 mmol/L (97-110); CREATININE 4.39 mg/dl (0.61-1.24); Estimated GFR 14 mL/min (>60); GLUCOSE 101 mg/dl (70-220); POTASSIUM 4.3 mmol/L (3.5-5.1); SODIUM 133 mmol/L (135-144)
[2018-10-25 07:34] LABS: MAGNESIUM 3.9 mg/dl (1.7-2.5)
[2018-10-25] MEDS: INSULIN ASPART [NOVOLOG] 3 ML PEN SC ×4 (08:00→21:00)
[2018-10-25] MEDS: ZINC SULFATE 220 MG CAP PO (08:26)
[2018-10-25] MEDS: DOCUSATE SODIUM 100 MG CAP PO (08:26)
[2018-10-25] MEDS: COLLAGENASE 5 GM (UD JAR) TOP ×2 (08:27→21:00)
[2018-10-25] MEDS: MIDODRINE 5 MG TAB PO ×3 (08:27→17:00)
[2018-10-25] MEDS: HYDROmorphONE 0.5 MG/0.5 ML SYG IV ×3 (08:27→21:34)
[2018-10-25] MEDS: AMLODIPINE 5 MG TAB PO (08:27)
[2018-10-25] MEDS: MAGNESIUM OXIDE 400 MG TAB PO ×2 (08:31→21:26)
[2018-10-25] MEDS: HEPARIN 5,000 UNIT/1 ML VIAL SC ×2 (08:33→21:25)
[2018-10-25] MEDS: BALSAM PERU/CASTOR OIL 60 GM TUBE TOP ×2 (08:34→21:27)
[2018-10-25] MEDS: MAGNESIUM HYDROXIDE 30ML CUP PO (08:34)
[2018-10-25] MEDS: SODIUM HYPOCHLORITE (1/40) 1 LITER BTL IRR (08:34)
[2018-10-25] MEDS: ALBUTEROL/IPRATROPIUM (NEB) 3 ML AMP HHN (11:30)
[2018-10-25] MEDS ORDERED: BUMETANIDE 2 MG in DEXTROSE 5% 17 ML IVPB (21:00)
[2018-10-25] MEDS: BUMETANIDE 2 MG in DEXTROSE 5% 17 ML IV (21:25)
[2018-10-25] MEDS: traZODone 50 MG TAB PO (21:26)
[2018-10-26] MEDS: METHADONE (1 MG/ML 5 ML PO UD SYG) PO ×4 (00:02→17:33)
[2018-10-26] MEDS: COLLAGENASE 5 GM (UD JAR) TOP ×3 (00:02→21:05)
[2018-10-26] MEDS: ACCU-CHEK XX (01:01)
[2018-10-26] MEDS: LEVOTHYROXINE 100 MCG TAB PO (06:05)
[2018-10-26] MEDS: BUMETANIDE 2 MG in DEXTROSE 5% 17 ML IV ×2 (06:06→17:27)
[2018-10-26] MEDS: INSULIN ASPART [NOVOLOG] 3 ML PEN SC ×4 (08:00→21:00)
[2018-10-26] MEDS: GUAIFENESIN/DM 5ML CUP PO (08:57)
[2018-10-26] MEDS: HYDROmorphONE 0.5 MG/0.5 ML SYG IV ×3 (08:57→21:05)
[2018-10-26] MEDS: ONDANSETRON 4 MG INJ IV (08:57)
[2018-10-26] MEDS: MAGNESIUM HYDROXIDE 30ML CUP PO (08:58)
[2018-10-26] MEDS: MAGNESIUM OXIDE 400 MG TAB PO ×2 (08:58→20:59)
[2018-10-26] MEDS: DOCUSATE SODIUM 100 MG CAP PO (08:58)
[2018-10-26] MEDS: ZINC SULFATE 220 MG CAP PO (08:58)
[2018-10-26] MEDS: SODIUM HYPOCHLORITE (1/40) 1 LITER BTL IRR (08:59)
[2018-10-26] MEDS: MIDODRINE 5 MG TAB PO ×3 (09:00→17:00)
[2018-10-26] MEDS: BALSAM PERU/CASTOR OIL 60 GM TUBE TOP ×2 (09:00→21:06)
[2018-10-26] MEDS: HEPARIN 5,000 UNIT/1 ML VIAL SC ×2 (09:01→21:05)
[2018-10-26] MEDS: AMLODIPINE 5 MG TAB PO (09:13)
[2018-10-26 10:56] LABS: ADD MAN DIFF? NO
[2018-10-26 10:58] LABS: WHITE BLOOD COUNT 9.6 10^3/ul (4.8-10.8)
[2018-10-26 10:58] LABS: BASOPHILS % 0.3 % (0.0-2.0); EOSINOPHILS # 0.5 10^3/ul (0.0-0.5); EOSINOPHILS % 4.7 % (0.0-7.0); HEMATOCRIT 24.9 % (42.0-52.0); HEMOGLOBIN 7.6 g/dl (14.0-18.0); LYMPHOCYTES # 1.7 10^3/ul (0.8-2.9); LYMPHOCYTES % 17.2 % (15.0-51.0); MEAN CORPUSCULAR HEMOGLOBIN 27.2 pg (29.0-33.0); MEAN CORPUSCULAR HGB CONC 30.5 g/dl (32.0-37.0); MEAN CORPUSCULAR VOLUME 89.2 fl (82.0-101.0); MEAN PLATELET VOLUME 8.4 fl (7.4-10.4); MONOCYTE # 0.5 10^3/ul (0.3-0.9); MONOCYTES % 5.2 % (0.0-11.0); NEUTROPHIL # 6.9 10^3/ul (1.6-7.5); PLATELET COUNT 225 10^3/UL (140-415); RED BLOOD COUNT 2.79 10^6/ul (4.70-6.10); RED CELL DISTRIBUTION WIDTH 15.8 % (11.5-14.5)
[2018-10-26 11:20] LABS: ANION GAP 3 (5-13); BLOOD UREA NITROGEN 65 mg/dl (7-20); CALCIUM 7.1 mg/dl (8.4-10.2); CARBON DIOXIDE 25 mmol/L (21-31); CHLORIDE 104 mmol/L (97-110); CREATININE 4.71 mg/dl (0.61-1.24); Estimated GFR 13 mL/min (>60); GLUCOSE 64 mg/dl (70-220); POTASSIUM 4.6 mmol/L (3.5-5.1); SODIUM 132 mmol/L (135-144)
[2018-10-26] MEDS: traZODone 50 MG TAB PO (20:59)
[2018-10-27] MEDS: METHADONE (1 MG/ML 5 ML PO UD SYG) PO ×4 (00:02→18:24)
[2018-10-27] MEDS: ACCU-CHEK XX (01:18)
[2018-10-27] MEDS: HYDROmorphONE 0.5 MG/0.5 ML SYG IV ×3 (02:36→14:06)
[2018-10-27] MEDS: LEVOTHYROXINE 100 MCG TAB PO (06:03)
[2018-10-27] MEDS: BUMETANIDE 2 MG in DEXTROSE 5% 17 ML IV ×2 (06:03→18:25)
[2018-10-27 07:17] LABS: ADD MAN DIFF? NO
[2018-10-27 07:19] LABS: BASOPHIL # 0.1 10^3/ul (0.0-0.1); BASOPHILS % 0.6 % (0.0-2.0); EOSINOPHILS # 0.5 10^3/ul (0.0-0.5); HEMATOCRIT 25.3 % (42.0-52.0); HEMOGLOBIN 7.6 g/dl (14.0-18.0); LYMPHOCYTES # 1.7 10^3/ul (0.8-2.9); LYMPHOCYTES % 19.7 % (15.0-51.0); MEAN CORPUSCULAR VOLUME 89.7 fl (82.0-101.0); MEAN PLATELET VOLUME 8.2 fl (7.4-10.4); MONOCYTE # 0.5 10^3/ul (0.3-0.9); MONOCYTES % 5.2 % (0.0-11.0); NEUTROPHIL # 5.9 10^3/ul (1.6-7.5); PLATELET COUNT 224 10^3/UL (140-415); RED BLOOD COUNT 2.82 10^6/ul (4.70-6.10); RED CELL DISTRIBUTION WIDTH 15.9 % (11.5-14.5)
[2018-10-27 07:19] LABS: WHITE BLOOD COUNT 8.7 10^3/ul (4.8-10.8)
[2018-10-27 07:35] LABS: ANION GAP 6 (5-13); BLOOD UREA NITROGEN 67 mg/dl (7-20); CALCIUM 7.1 mg/dl (8.4-10.2); CARBON DIOXIDE 26 mmol/L (21-31); CHLORIDE 102 mmol/L (97-110); CREATININE 4.76 mg/dl (0.61-1.24); Estimated GFR 13 mL/min (>60); GLUCOSE 63 mg/dl (70-220); POTASSIUM 4.6 mmol/L (3.5-5.1); SODIUM 134 mmol/L (135-144)
[2018-10-27] MEDS: INSULIN ASPART [NOVOLOG] 3 ML PEN SC ×4 (08:00→21:00)
[2018-10-27] MEDS: ONDANSETRON 4 MG INJ IV (08:52)
[2018-10-27] MEDS: GUAIFENESIN/DM 5ML CUP PO (08:53)
[2018-10-27] MEDS: CYCLOBENZAPRINE 10 MG TAB PO (08:53)
[2018-10-27] MEDS: COLLAGENASE 5 GM (UD JAR) TOP ×2 (08:54→21:00)
[2018-10-27] MEDS: DOCUSATE SODIUM 100 MG CAP PO (08:54)
[2018-10-27] MEDS: ZINC SULFATE 220 MG CAP PO (08:54)
[2018-10-27] MEDS: MAGNESIUM OXIDE 400 MG TAB PO ×2 (08:54→22:04)
[2018-10-27] MEDS: HEPARIN 5,000 UNIT/1 ML VIAL SC ×2 (08:55→22:08)
[2018-10-27] MEDS: MIDODRINE 5 MG TAB PO ×3 (08:58→17:00)
[2018-10-27] MEDS: AMLODIPINE 5 MG TAB PO (08:58)
[2018-10-27] MEDS: MAGNESIUM HYDROXIDE 30ML CUP PO (08:58)
[2018-10-27 08:59] LABS: ERYTHROCYTE SEDIMENTATION RATE 105 mm/Hr (0-20)
[2018-10-27] MEDS: SODIUM HYPOCHLORITE (1/40) 1 LITER BTL IRR (09:03)
[2018-10-27] MEDS: BALSAM PERU/CASTOR OIL 60 GM TUBE TOP ×2 (09:04→21:00)
[2018-10-27] MEDS: METOPROLOL (XL) 25 MG TAB PO (10:28)
[2018-10-27] MEDS: HYDROmorphONE 1 MG/ML SYG IV (17:08)
[2018-10-27 20:14] LABS: OCCULT BLOOD STOOL POSITIVE (NEGATIVE)
[2018-10-27] MEDS: traZODone 50 MG TAB PO (22:03)
[2018-10-27] MEDS: ATENOLOL 25 MG TAB PO (22:05)
[2018-10-28] MEDS: METHADONE (1 MG/ML 5 ML PO UD SYG) PO ×5 (01:09→23:58)
[2018-10-28] MEDS: ACCU-CHEK XX (01:10)
[2018-10-28] MEDS: LEVOTHYROXINE 100 MCG TAB PO (06:34)
[2018-10-28] MEDS: BUMETANIDE 2 MG in DEXTROSE 5% 17 ML IV ×2 (06:34→17:55)
[2018-10-28] MEDS: HYDROmorphONE 1 MG/ML SYG IV ×3 (07:36→21:41)
[2018-10-28] MEDS: INSULIN ASPART [NOVOLOG] 3 ML PEN SC ×4 (08:00→21:00)
[2018-10-28] MEDS: MULTIVIT/CA CARB/B CMPLX/FA TAB PO (08:19)
[2018-10-28] MEDS: MIDODRINE 5 MG TAB PO ×3 (08:21→17:00)
[2018-10-28] MEDS: ASCORBIC ACID 500 MG TAB PO (08:22)
[2018-10-28] MEDS: MAGNESIUM OXIDE 400 MG TAB PO ×2 (08:22→21:23)
[2018-10-28] MEDS: DOCUSATE SODIUM 100 MG CAP PO (08:22)
[2018-10-28] MEDS: HEPARIN 5,000 UNIT/1 ML VIAL SC ×2 (08:23→21:25)
[2018-10-28] MEDS: ATENOLOL 25 MG TAB PO ×2 (08:24→21:27)
[2018-10-28] MEDS: COLLAGENASE 5 GM (UD JAR) TOP ×2 (08:25→21:28)
[2018-10-28] MEDS: MAGNESIUM HYDROXIDE 30ML CUP PO (08:40)
[2018-10-28] MEDS: SODIUM HYPOCHLORITE (1/40) 1 LITER BTL IRR (08:41)
[2018-10-28] MEDS: BALSAM PERU/CASTOR OIL 60 GM TUBE TOP ×2 (08:43→21:30)
[2018-10-28 09:24] LABS: ADD MAN DIFF? NO
[2018-10-28 09:36] LABS: WHITE BLOOD COUNT 11.1 10^3/ul (4.8-10.8)
[2018-10-28 09:36] LABS: BASOPHIL # 0.1 10^3/ul (0.0-0.1); BASOPHILS % 0.5 % (0.0-2.0); EOSINOPHILS # 0.7 10^3/ul (0.0-0.5); EOSINOPHILS % 6.1 % (0.0-7.0); HEMATOCRIT 24.4 % (42.0-52.0); HEMOGLOBIN 7.5 g/dl (14.0-18.0); LYMPHOCYTES # 1.5 10^3/ul (0.8-2.9); LYMPHOCYTES % 13.4 % (15.0-51.0); MEAN CORPUSCULAR HEMOGLOBIN 27.6 pg (29.0-33.0); MEAN CORPUSCULAR HGB CONC 30.7 g/dl (32.0-37.0); MEAN CORPUSCULAR VOLUME 89.7 fl (82.0-101.0); MEAN PLATELET VOLUME 8.4 fl (7.4-10.4); MONOCYTE # 0.6 10^3/ul (0.3-0.9); MONOCYTES % 5.1 % (0.0-11.0); NEUTROPHIL # 8.2 10^3/ul (1.6-7.5); NEUTROPHILS % 74.1 % (39.0-77.0); PLATELET COUNT 237 10^3/UL (140-415); RED BLOOD COUNT 2.72 10^6/ul (4.70-6.10); RED CELL DISTRIBUTION WIDTH 15.9 % (11.5-14.5)
[2018-10-28] MEDS: traZODone 50 MG TAB PO (21:27)
[2018-10-29] MEDS: ACCU-CHEK XX (02:00)
[2018-10-29] MEDS: HYDROmorphONE 1 MG/ML SYG IV ×4 (04:19→21:00)
[2018-10-29 05:32] LABS: ADD MAN DIFF? NO
[2018-10-29 05:38] LABS: WHITE BLOOD COUNT 9.1 10^3/ul (4.8-10.8)
[2018-10-29 05:38] LABS: BASOPHIL # 0.1 10^3/ul (0.0-0.1); BASOPHILS % 0.5 % (0.0-2.0); EOSINOPHILS # 0.9 10^3/ul (0.0-0.5); EOSINOPHILS % 9.3 % (0.0-7.0); HEMOGLOBIN 7.6 g/dl (14.0-18.0); LYMPHOCYTES # 2.1 10^3/ul (0.8-2.9); LYMPHOCYTES % 22.6 % (15.0-51.0); MEAN CORPUSCULAR HGB CONC 30.4 g/dl (32.0-37.0); MEAN PLATELET VOLUME 8.5 fl (7.4-10.4); MONOCYTE # 0.5 10^3/ul (0.3-0.9); MONOCYTES % 5.4 % (0.0-11.0); NEUTROPHIL # 5.6 10^3/ul (1.6-7.5); NEUTROPHILS % 61.7 % (39.0-77.0); PLATELET COUNT 252 10^3/UL (140-415); RED BLOOD COUNT 2.81 10^6/ul (4.70-6.10); RED CELL DISTRIBUTION WIDTH 15.9 % (11.5-14.5)
[2018-10-29] MEDS: BUMETANIDE 2 MG in DEXTROSE 5% 17 ML IV (06:09)
[2018-10-29] MEDS: LEVOTHYROXINE 100 MCG TAB PO (06:09)
[2018-10-29] MEDS: METHADONE (1 MG/ML 5 ML PO UD SYG) PO ×3 (06:09→17:48)
[2018-10-29 06:17] LABS: ALANINE AMINOTRANSFERASE 12 IU/L (13-69); ALBUMIN 1.7 g/dl (3.3-4.9); ALBUMIN/GLOBULIN RATIO 0.73; ALKALINE PHOSPHATASE 108 IU/L (42-121); ANION GAP 4 (5-13); ASPARTATE AMINO TRANSFERASE 11 IU/L (15-46); BLOOD UREA NITROGEN 72 mg/dl (7-20); CALCIUM 7.1 mg/dl (8.4-10.2); CARBON DIOXIDE 25 mmol/L (21-31); CHLORIDE 104 mmol/L (97-110); CREATININE 4.82 mg/dl (0.61-1.24); Estimated GFR 13 mL/min (>60); GLUCOSE 89 mg/dl (70-220); POTASSIUM 5.2 mmol/L (3.5-5.1); SODIUM 133 mmol/L (135-144)
[2018-10-29 06:22] LABS: MAGNESIUM 3.9 mg/dl (1.7-2.5)
[2018-10-29 06:23] LABS: INR 0.89; PROTIME 12.2 Sec (11.9-14.9)
[2018-10-29 06:24] LABS: PARTIAL THROMBOPLASTIN TIME 39.7 Sec (23.0-35.0)
[2018-10-29] MEDS: INSULIN ASPART [NOVOLOG] 3 ML PEN SC ×4 (08:00→21:00)
[2018-10-29] MEDS: MAGNESIUM OXIDE 400 MG TAB PO (08:47)
[2018-10-29] MEDS: ASCORBIC ACID 500 MG TAB PO (08:47)
[2018-10-29] MEDS: MULTIVIT/CA CARB/B CMPLX/FA TAB PO (08:48)
[2018-10-29] MEDS: MIDODRINE 5 MG TAB PO ×3 (08:48→17:00)
[2018-10-29] MEDS: ATENOLOL 25 MG TAB PO ×2 (08:49→21:03)
[2018-10-29] MEDS: DOCUSATE SODIUM 100 MG CAP PO (08:49)
[2018-10-29] MEDS: MAGNESIUM HYDROXIDE 30ML CUP PO (08:49)
[2018-10-29] MEDS: SODIUM HYPOCHLORITE (1/40) 1 LITER BTL IRR (08:50)
[2018-10-29] MEDS: COLLAGENASE 5 GM (UD JAR) TOP ×2 (08:50→21:12)
[2018-10-29] MEDS: BALSAM PERU/CASTOR OIL 60 GM TUBE TOP ×2 (08:51→21:12)
[2018-10-29] MEDS: HEPARIN 5,000 UNIT/1 ML VIAL SC ×2 (08:58→21:08)
[2018-10-29] MEDS: SODIUM POLYSTYRENE 15 GM KIT (POWDER + SORBITOL) PO (11:58)
[2018-10-29] MEDS: ALBUTEROL/IPRATROPIUM (NEB) 3 ML AMP HHN (16:36)
[2018-10-29] MEDS: BUMETANIDE 1 MG INJ IV (17:46)
[2018-10-29] MEDS ORDERED: SODIUM CHLORIDE 0.9% 1L BAG IV (18:30)
[2018-10-29] MEDS: traZODone 50 MG TAB PO (21:02)
[2018-10-30] MEDS: METHADONE (1 MG/ML 5 ML PO UD SYG) PO ×5 (00:26→23:20)
[2018-10-30] MEDS: ACCU-CHEK XX (02:00)
[2018-10-30] MEDS: BUMETANIDE 1 MG INJ IV ×2 (06:02→17:20)
[2018-10-30] MEDS: LEVOTHYROXINE 100 MCG TAB PO (06:02)
[2018-10-30] MEDS: ONDANSETRON 4 MG INJ IV ×3 (06:16→21:17)
[2018-10-30] MEDS: HYDROmorphONE 1 MG/ML SYG IV ×2 (06:54→21:18)
[2018-10-30 07:22] LABS: ADD MAN DIFF? NO; HAAIG REFLEX REFLEX FILED
[2018-10-30 07:33] LABS: WHITE BLOOD COUNT 7.2 10^3/ul (4.8-10.8)
[2018-10-30 07:33] LABS: BASOPHILS % 0.3 % (0.0-2.0); EOSINOPHILS # 0.3 10^3/ul (0.0-0.5); EOSINOPHILS % 4.1 % (0.0-7.0); HEMATOCRIT 25.1 % (42.0-52.0); HEMOGLOBIN 7.7 g/dl (14.0-18.0); LYMPHOCYTES # 1.5 10^3/ul (0.8-2.9); LYMPHOCYTES % 20.8 % (15.0-51.0); MEAN CORPUSCULAR HEMOGLOBIN 27.3 pg (29.0-33.0); MEAN CORPUSCULAR HGB CONC 30.7 g/dl (32.0-37.0); MEAN PLATELET VOLUME 8.5 fl (7.4-10.4); MONOCYTE # 0.3 10^3/ul (0.3-0.9); MONOCYTES % 4.5 % (0.0-11.0); NEUTROPHILS % 69.6 % (39.0-77.0); PLATELET COUNT 273 10^3/UL (140-415); RED BLOOD COUNT 2.82 10^6/ul (4.70-6.10); RED CELL DISTRIBUTION WIDTH 15.9 % (11.5-14.5)
[2018-10-30 07:48] LABS: ALANINE AMINOTRANSFERASE 9 IU/L (13-69); ALBUMIN 1.8 g/dl (3.3-4.9); ALBUMIN/GLOBULIN RATIO 0.75; ALKALINE PHOSPHATASE 98 IU/L (42-121); ANION GAP 6 (5-13); ASPARTATE AMINO TRANSFERASE 12 IU/L (15-46); BLOOD UREA NITROGEN 78 mg/dl (7-20); CALCIUM 7.2 mg/dl (8.4-10.2); CARBON DIOXIDE 27 mmol/L (21-31); CHLORIDE 100 mmol/L (97-110); CREATININE 4.85 mg/dl (0.61-1.24); Estimated GFR 13 mL/min (>60); GLUCOSE 62 mg/dl (70-220); POTASSIUM 5.3 mmol/L (3.5-5.1); SODIUM 133 mmol/L (135-144); TOTAL PROTEIN 4.2 g/dl (6.1-8.1)
[2018-10-30 07:51] LABS: INR 0.93; PROTIME 12.6 Sec (11.9-14.9)
[2018-10-30 07:52] LABS: PARTIAL THROMBOPLASTIN TIME 37.2 Sec (23.0-35.0)
[2018-10-30 08:17] LABS: HEPATITIS B SURFACE ANTIGEN NEGATIVE (NEGATIVE)
[2018-10-30 08:35] LABS: HIV 1&2 ANTIBODY NEGATIVE (NEGATIVE)
[2018-10-30] MEDS: LIDOCAINE 1% (MPF) 5 ML VIAL (08:50)
[2018-10-30] MEDS: ATENOLOL 25 MG TAB PO (09:00)
[2018-10-30] MEDS: HEPARIN 5,000 UNIT/1 ML VIAL SC ×2 (09:00→21:29)
[2018-10-30] MEDS: INSULIN ASPART [NOVOLOG] 3 ML PEN SC ×4 (09:43→21:00)
[2018-10-30] MEDS: MULTIVIT/CA CARB/B CMPLX/FA TAB PO (09:44)
[2018-10-30] MEDS: ASCORBIC ACID 500 MG TAB PO (09:44)
[2018-10-30] MEDS: COLLAGENASE 5 GM (UD JAR) TOP ×2 (09:44→21:32)
[2018-10-30] MEDS: SODIUM HYPOCHLORITE (1/40) 1 LITER BTL IRR (09:44)
[2018-10-30] MEDS: DOCUSATE SODIUM 100 MG CAP PO (09:50)
[2018-10-30] MEDS: BALSAM PERU/CASTOR OIL 60 GM TUBE TOP ×2 (09:51→21:32)
[2018-10-30] MEDS: MIDODRINE 5 MG TAB PO ×3 (09:51→17:19)
[2018-10-30 13:18] LABS: HEPATITIS B CORE ANTIBODY REACTIVE (NEGATIVE)
[2018-10-30 13:26] LABS: HEPATITIS C VIRAL ANTIBODY REACTIVE (NEGATIVE)
[2018-10-30] MEDS: METOCLOPRAMIDE 10 MG INJ IV ×2 (17:20→23:21)
[2018-10-30] MEDS ORDERED: DEXTROSE 5%-0.9% NACL 1,000 ML IV (18:00)
[2018-10-30] MEDS: NA POLYST SULFON 15 GM/60 ML BTL PO (18:10)
[2018-10-30] MEDS: traZODone 50 MG TAB PO (21:17)
[2018-10-30] MEDS: DEXTROSE 5%-0.9% NACL 1,000 ML IV (22:35)
[2018-10-31] MEDS ORDERED: DEXTROSE 5%-0.9% NACL 1,000 ML IV
[2018-10-31] MEDS: ACCU-CHEK XX (02:00)
[2018-10-31] MEDS: HYDROmorphONE 1 MG/ML SYG IV ×3 (02:19→21:23)
[2018-10-31] MEDS: METOCLOPRAMIDE 10 MG INJ IV ×4 (05:38→23:59)
[2018-10-31] MEDS: BUMETANIDE 1 MG INJ IV ×2 (05:38→17:17)
[2018-10-31] MEDS: METHADONE (1 MG/ML 5 ML PO UD SYG) PO ×3 (05:39→17:09)
[2018-10-31] MEDS: LEVOTHYROXINE 100 MCG TAB PO (06:13)
[2018-10-31] MEDS: INSULIN ASPART [NOVOLOG] 3 ML PEN SC ×4 (07:53→21:00)
[2018-10-31] MEDS: SODIUM HYPOCHLORITE (1/40) 1 LITER BTL IRR (07:54)
[2018-10-31] MEDS: MIDODRINE 5 MG TAB PO ×3 (07:59→17:18)
[2018-10-31] MEDS: ASCORBIC ACID 500 MG TAB PO (07:59)
[2018-10-31] MEDS: DOCUSATE SODIUM 100 MG CAP PO (07:59)
[2018-10-31] MEDS: MULTIVIT/CA CARB/B CMPLX/FA TAB PO (07:59)
[2018-10-31] MEDS: HEPARIN 5,000 UNIT/1 ML VIAL SC ×2 (08:00→21:33)
[2018-10-31] MEDS: COLLAGENASE 5 GM (UD JAR) TOP ×2 (08:01→21:23)
[2018-10-31] MEDS: BALSAM PERU/CASTOR OIL 60 GM TUBE TOP ×2 (08:04→21:35)
[2018-10-31] MEDS: ATENOLOL 25 MG TAB PO (09:00)
[2018-10-31 11:09] LABS: ADD MAN DIFF? NO
[2018-10-31 11:11] LABS: BASOPHILS % 0.3 % (0.0-2.0); EOSINOPHILS # 0.1 10^3/ul (0.0-0.5); EOSINOPHILS % 0.6 % (0.0-7.0); HEMATOCRIT 22.9 % (42.0-52.0); HEMOGLOBIN 7.2 g/dl (14.0-18.0); LYMPHOCYTES # 1.3 10^3/ul (0.8-2.9); LYMPHOCYTES % 12.6 % (15.0-51.0); MEAN CORPUSCULAR HEMOGLOBIN 27.5 pg (29.0-33.0); MEAN CORPUSCULAR HGB CONC 31.4 g/dl (32.0-37.0); MEAN CORPUSCULAR VOLUME 87.4 fl (82.0-101.0); MEAN PLATELET VOLUME 8.4 fl (7.4-10.4); MONOCYTE # 0.4 10^3/ul (0.3-0.9); MONOCYTES % 3.8 % (0.0-11.0); NEUTROPHIL # 8.1 10^3/ul (1.6-7.5); NEUTROPHILS % 82.2 % (39.0-77.0); PLATELET COUNT 263 10^3/UL (140-415); RED BLOOD COUNT 2.62 10^6/ul (4.70-6.10); RED CELL DISTRIBUTION WIDTH 16.1 % (11.5-14.5)
[2018-10-31 11:11] LABS: WHITE BLOOD COUNT 9.9 10^3/ul (4.8-10.8)
[2018-10-31 11:31] LABS: ALANINE AMINOTRANSFERASE 11 IU/L (13-69); ALBUMIN 1.7 g/dl (3.3-4.9); ALBUMIN/GLOBULIN RATIO 0.73; ALKALINE PHOSPHATASE 90 IU/L (42-121); ANION GAP 7 (5-13); ASPARTATE AMINO TRANSFERASE 23 IU/L (15-46); BLOOD UREA NITROGEN 83 mg/dl (7-20); CALCIUM 7.1 mg/dl (8.4-10.2); CARBON DIOXIDE 25 mmol/L (21-31); CHLORIDE 101 mmol/L (97-110); CREATININE 4.84 mg/dl (0.61-1.24); Estimated GFR 13 mL/min (>60); GLUCOSE 64 mg/dl (70-220); POTASSIUM 5.2 mmol/L (3.5-5.1); SODIUM 133 mmol/L (135-144)
[2018-10-31 11:35] LABS: INR 1.02; PROTIME 13.5 Sec (11.9-14.9); PT RATIO 1.1
[2018-10-31 11:36] LABS: PARTIAL THROMBOPLASTIN TIME 39.3 Sec (23.0-35.0)
[2018-10-31] MEDS ORDERED: PROPOFOL 20 ML (12:59)
[2018-10-31] MEDS ORDERED: MIDAZOLAM 1 MG/ML 2 ML INJ ×2 (12:59)
[2018-10-31] MEDS ORDERED: FENTAnyl 50 MCG/ML VIAL (12:59)
[2018-10-31] MEDS: HEPARIN 1000 UNITS/ML 10 ML INJ ×2 (13:12→14:38)
[2018-10-31] MEDS: LIDOCAINE 1% (MDV) 20 ML INJ (13:12)
[2018-10-31] MEDS: LIDOCAINE 1%/EPI (1:100,000) (MDV) 20 ML (14:38)
[2018-10-31] MEDS: traZODone 50 MG TAB PO (21:23)
[2018-11-01] MEDS: HYDROmorphONE 1 MG/ML SYG IV ×4 (01:29→14:22)
[2018-11-01] MEDS: ACCU-CHEK XX (02:00)
[2018-11-01] MEDS: BUMETANIDE 1 MG INJ IV ×2 (05:33→17:33)
[2018-11-01] MEDS: METOCLOPRAMIDE 10 MG INJ IV ×3 (05:33→17:37)
[2018-11-01] MEDS: ALBUTEROL/IPRATROPIUM (NEB) 3 ML AMP HHN (05:49)
[2018-11-01] MEDS: LEVOTHYROXINE 100 MCG TAB PO (06:19)
[2018-11-01] MEDS: METHADONE (1 MG/ML 5 ML PO UD SYG) PO ×4 (06:19→17:38)
[2018-11-01] MEDS: INSULIN ASPART [NOVOLOG] 3 ML PEN SC ×4 (08:00→21:00)
[2018-11-01] MEDS: MIDODRINE 5 MG TAB PO ×3 (09:00→17:00)
[2018-11-01] MEDS: DOCUSATE SODIUM 100 MG CAP PO (09:00)
[2018-11-01] MEDS: HEPARIN 5,000 UNIT/1 ML VIAL SC (09:57)
[2018-11-01] MEDS: COLLAGENASE 5 GM (UD JAR) TOP (09:57)
[2018-11-01] MEDS: MULTIVIT/CA CARB/B CMPLX/FA TAB PO (09:58)
[2018-11-01] MEDS: SODIUM HYPOCHLORITE (1/40) 1 LITER BTL IRR (10:00)
[2018-11-01] MEDS: BALSAM PERU/CASTOR OIL 60 GM TUBE TOP (10:03)
[2018-11-01] MEDS: ASCORBIC ACID 500 MG TAB PO (10:03)
[2018-11-01] MEDS: ONDANSETRON 4 MG INJ IV (13:46)
[2018-11-01] MEDS: ALBUMIN HUMAN 25% 100 ML IV (20:33)
[2018-11-01] MEDS: HEPARIN 1000 UNITS/ML 10 ML INJ CATHETER (23:12)
[2018-11-01] MEDS: traZODone 50 MG TAB PO (23:59)
[2018-11-02] MEDS: HEPARIN 5,000 UNIT/1 ML VIAL SC ×3 (00:01→20:57)
[2018-11-02] MEDS: BALSAM PERU/CASTOR OIL 60 GM TUBE TOP ×3 (00:01→20:57)
[2018-11-02] MEDS: HYDROmorphONE 1 MG/ML SYG IV ×4 (00:02→20:52)
[2018-11-02] MEDS: METOCLOPRAMIDE 10 MG INJ IV ×5 (00:05→23:51)
[2018-11-02] MEDS: ACCU-CHEK XX (02:00)
[2018-11-02] MEDS: ALBUTEROL/IPRATROPIUM (NEB) 3 ML AMP HHN (03:24)
[2018-11-02] MEDS: BUMETANIDE 1 MG INJ IV ×2 (06:16→18:02)
[2018-11-02] MEDS: LEVOTHYROXINE 100 MCG TAB PO (06:18)
[2018-11-02] MEDS: METHADONE (1 MG/ML 5 ML PO UD SYG) PO ×5 (06:19→23:50)
[2018-11-02 06:51] LABS: ADD MAN DIFF? NO
[2018-11-02 06:57] LABS: ABNORMAL IP MESSAGE 1; BASOPHILS % 0.3 % (0.0-2.0); EOSINOPHILS # 0.3 10^3/ul (0.0-0.5); EOSINOPHILS % 4.6 % (0.0-7.0); HEMATOCRIT 22.4 % (42.0-52.0); LYMPHOCYTES # 1.1 10^3/ul (0.8-2.9); LYMPHOCYTES % 16.9 % (15.0-51.0); MEAN CORPUSCULAR HEMOGLOBIN 26.5 pg (29.0-33.0); MEAN CORPUSCULAR HGB CONC 29.9 g/dl (32.0-37.0); MEAN CORPUSCULAR VOLUME 88.5 fl (82.0-101.0); MEAN PLATELET VOLUME 8.2 fl (7.4-10.4); MONOCYTE # 0.4 10^3/ul (0.3-0.9); MONOCYTES % 6.4 % (0.0-11.0); NEUTROPHIL # 4.8 10^3/ul (1.6-7.5); NEUTROPHILS % 71.5 % (39.0-77.0); PLATELET COUNT 257 10^3/UL (140-415); POSITIVE DIFF @See below; RED BLOOD COUNT 2.53 10^6/ul (4.70-6.10)
[2018-11-02 06:57] LABS: WHITE BLOOD COUNT 6.8 10^3/ul (4.8-10.8)
[2018-11-02 07:01] LABS: HEMOGLOBIN 6.7 g/dl (14.0-18.0)
[2018-11-02 07:37] LABS: ANION GAP 5 (5-13); BLOOD UREA NITROGEN 38 mg/dl (7-20); CARBON DIOXIDE 29 mmol/L (21-31); CHLORIDE 102 mmol/L (97-110); CREATININE 2.76 mg/dl (0.61-1.24); Estimated GFR 24 mL/min (>60); GLUCOSE 84 mg/dl (70-220); POTASSIUM 3.6 mmol/L (3.5-5.1); SODIUM 136 mmol/L (135-144)
[2018-11-02] MEDS: INSULIN ASPART [NOVOLOG] 3 ML PEN SC ×2 (08:00→12:00)
[2018-11-02] MEDS: MIDODRINE 5 MG TAB PO ×3 (08:45→17:00)
[2018-11-02] MEDS: ASCORBIC ACID 500 MG TAB PO (08:46)
[2018-11-02] MEDS: MULTIVIT/CA CARB/B CMPLX/FA TAB PO (08:46)
[2018-11-02] MEDS: COLLAGENASE 5 GM (UD JAR) TOP ×3 (08:46→20:54)
[2018-11-02] MEDS: ONDANSETRON 4 MG INJ IV ×3 (08:46→19:36)
[2018-11-02] MEDS: SODIUM HYPOCHLORITE (1/40) 1 LITER BTL IRR (08:56)
[2018-11-02] MEDS: DOCUSATE SODIUM 100 MG CAP PO (08:56)
[2018-11-02 19:50] LABS: ADD UMIC YES; UR ASCORBIC ACID NEGATIVE (NEGATIVE); UR BACTERIA MODERATE /HPF (NONE SEEN); UR BILIRUBIN (Dip) NEGATIVE (NEGATIVE); UR BLOOD (Dip) NEGATIVE (NEGATIVE); UR CLARITY TURBID (CLEAR); UR COLOR YELLOW (YELLOW); UR GLUCOSE (Dip) NEGATIVE (NEGATIVE); UR KETONES (Dip) TRACE mg/dL (NEGATIVE); UR LEUKOCYTE ESTERASE (Dip) 2+ Leu/ul (NEGATIVE); UR NITRITE (Dip) NEGATIVE (NEGATIVE); UR NONSQUAMOUS EPITHELIAL CELL 2 /HPF (NONE SEEN); UR RBC 25 /HPF (0-5); UR SPECIFIC GRAVITY (Dip) 1.033 (1.003-1.030); UR TOTAL PROTEIN (Dip) 3+ mg/dl (NEGATIVE); UR UROBILINOGEN (Dip) NEGATIVE (NEGATIVE); UR WBC > 182 /HPF (0-5)
[2018-11-02] MEDS: traZODone 50 MG TAB PO (20:53)
[2018-11-02] MEDS: METOPROLOL 25 MG TAB PO (20:54)
[2018-11-02 21:39] LABS: IMMEDIATE SPIN CROSSMATCH 1 2
[2018-11-03] MEDS: HYDROmorphONE 1 MG/ML SYG IV ×2 (01:49→13:31)
[2018-11-03 05:30] LABS: ADD MAN DIFF? NO
[2018-11-03 05:43] LABS: WHITE BLOOD COUNT 7.9 10^3/ul (4.8-10.8)
[2018-11-03 05:43] LABS: BASOPHILS % 0.5 % (0.0-2.0); EOSINOPHILS # 0.5 10^3/ul (0.0-0.5); EOSINOPHILS % 6.2 % (0.0-7.0); HEMATOCRIT 30.3 % (42.0-52.0); HEMOGLOBIN 9.4 g/dl (14.0-18.0); LYMPHOCYTES # 1.6 10^3/ul (0.8-2.9); LYMPHOCYTES % 20.5 % (15.0-51.0); MEAN CORPUSCULAR HEMOGLOBIN 27.2 pg (29.0-33.0); MEAN CORPUSCULAR VOLUME 87.6 fl (82.0-101.0); MEAN PLATELET VOLUME 8.2 fl (7.4-10.4); MONOCYTE # 0.6 10^3/ul (0.3-0.9); NEUTROPHIL # 5.1 10^3/ul (1.6-7.5); NEUTROPHILS % 64.2 % (39.0-77.0); PLATELET COUNT 267 10^3/UL (140-415); RED BLOOD COUNT 3.46 10^6/ul (4.70-6.10); RED CELL DISTRIBUTION WIDTH 15.4 % (11.5-14.5)
[2018-11-03 06:00] LABS: ANION GAP 4 (5-13); BLOOD UREA NITROGEN 43 mg/dl (7-20); CARBON DIOXIDE 28 mmol/L (21-31); CHLORIDE 103 mmol/L (97-110); Estimated GFR 21 mL/min (>60); GLUCOSE 63 mg/dl (70-220); POTASSIUM 3.8 mmol/L (3.5-5.1); SODIUM 135 mmol/L (135-144)
[2018-11-03] MEDS: BUMETANIDE 1 MG INJ IV ×2 (06:12→18:30)
[2018-11-03] MEDS: METOCLOPRAMIDE 10 MG INJ IV ×3 (06:12→18:33)
[2018-11-03] MEDS: LEVOTHYROXINE 100 MCG TAB PO (06:13)
[2018-11-03] MEDS: METHADONE (1 MG/ML 5 ML PO UD SYG) PO ×3 (06:14→18:31)
[2018-11-03] MEDS: MIDODRINE 5 MG TAB PO ×3 (09:00→17:00)
[2018-11-03] MEDS: METOPROLOL 25 MG TAB PO ×2 (09:00→21:07)
[2018-11-03] MEDS: DOCUSATE SODIUM 100 MG CAP PO (09:00)
[2018-11-03] MEDS: ASCORBIC ACID 500 MG TAB PO (09:08)
[2018-11-03] MEDS: MULTIVIT/CA CARB/B CMPLX/FA TAB PO (09:08)
[2018-11-03] MEDS: ONDANSETRON 4 MG INJ IV ×2 (09:08→18:30)
[2018-11-03] MEDS: HEPARIN 5,000 UNIT/1 ML VIAL SC ×2 (09:09→21:15)
[2018-11-03] MEDS: COLLAGENASE 5 GM (UD JAR) TOP ×3 (09:16→21:31)
[2018-11-03] MEDS: SODIUM HYPOCHLORITE (1/40) 1 LITER BTL IRR (09:16)
[2018-11-03] MEDS: BALSAM PERU/CASTOR OIL 60 GM TUBE TOP ×3 (09:16→21:30)
[2018-11-03] MEDS: ALBUMIN HUMAN 25% 100 ML IV (11:28)
[2018-11-03] MEDS: HEPARIN 1000 UNITS/ML 10 ML INJ CATHETER (13:19)
[2018-11-03] MEDS: ALBUTEROL/IPRATROPIUM (NEB) 3 ML AMP HHN (14:07)
[2018-11-03] MEDS: INSULIN ASPART [NOVOLOG] 3 ML PEN SC ×2 (18:00→21:00)
[2018-11-03] MEDS: traZODone 50 MG TAB PO (21:07)
[2018-11-04] MEDS: METOCLOPRAMIDE 10 MG INJ IV ×4 (00:33→17:24)
[2018-11-04] MEDS: EPOETIN ALFA-EPBX (ESRD) 3,000 UNIT/ML VIAL SC (00:37)
[2018-11-04] MEDS: METHADONE (1 MG/ML 5 ML PO UD SYG) PO ×4 (00:38→17:24)
[2018-11-04] MEDS: ACCU-CHEK XX (01:55)
[2018-11-04] MEDS: BUMETANIDE 1 MG TAB PO ×2 (06:01→17:24)
[2018-11-04] MEDS: LEVOTHYROXINE 100 MCG TAB PO (06:01)
[2018-11-04 06:55] LABS: ADD MAN DIFF? NO
[2018-11-04 07:06] LABS: WHITE BLOOD COUNT 6.7 10^3/ul (4.8-10.8)
[2018-11-04 07:06] LABS: BASOPHILS % 0.6 % (0.0-2.0); EOSINOPHILS # 0.5 10^3/ul (0.0-0.5); EOSINOPHILS % 7.8 % (0.0-7.0); HEMATOCRIT 29.7 % (42.0-52.0); HEMOGLOBIN 9.1 g/dl (14.0-18.0); LYMPHOCYTES # 1.4 10^3/ul (0.8-2.9); LYMPHOCYTES % 21.6 % (15.0-51.0); MEAN CORPUSCULAR HEMOGLOBIN 27.1 pg (29.0-33.0); MEAN CORPUSCULAR HGB CONC 30.6 g/dl (32.0-37.0); MEAN CORPUSCULAR VOLUME 88.4 fl (82.0-101.0); MONOCYTE # 0.5 10^3/ul (0.3-0.9); MONOCYTES % 7.2 % (0.0-11.0); NEUTROPHIL # 4.1 10^3/ul (1.6-7.5); NEUTROPHILS % 62.2 % (39.0-77.0); PLATELET COUNT 246 10^3/UL (140-415); RED BLOOD COUNT 3.36 10^6/ul (4.70-6.10); RED CELL DISTRIBUTION WIDTH 15.2 % (11.5-14.5)
[2018-11-04] MEDS: INSULIN ASPART [NOVOLOG] 3 ML PEN SC ×4 (08:00→20:49)
[2018-11-04] MEDS: MIDODRINE 5 MG TAB PO ×3 (09:00→17:00)
[2018-11-04] MEDS: DOCUSATE SODIUM 100 MG CAP PO (09:00)
[2018-11-04] MEDS: MULTIVIT/CA CARB/B CMPLX/FA TAB PO (09:34)
[2018-11-04] MEDS: ASCORBIC ACID 500 MG TAB PO (09:34)
[2018-11-04] MEDS: COLLAGENASE 5 GM (UD JAR) TOP ×2 (09:35→20:48)
[2018-11-04] MEDS: METOPROLOL 25 MG TAB PO ×2 (09:35→20:49)
[2018-11-04] MEDS: BALSAM PERU/CASTOR OIL 60 GM TUBE TOP ×2 (09:35→20:56)
[2018-11-04] MEDS: HEPARIN 5,000 UNIT/1 ML VIAL SC ×2 (09:38→21:00)
[2018-11-04] MEDS: HYDROmorphONE 1 MG/ML SYG IV ×3 (09:42→20:39)
[2018-11-04] MEDS: ONDANSETRON 4 MG INJ IV ×2 (10:03→17:24)
[2018-11-04] MEDS: SODIUM HYPOCHLORITE (1/40) 1 LITER BTL IRR (10:25)
[2018-11-04] MEDS: ALBUTEROL/IPRATROPIUM (NEB) 3 ML AMP HHN ×2 (11:21→21:08)
[2018-11-04] MEDS: ARTIFICIAL TEARS 15 ML OPH BOTH EYES (20:48)
[2018-11-04] MEDS: traZODone 50 MG TAB PO (20:48)
[2018-11-05] MEDS: HYDROmorphONE 1 MG/ML SYG IV ×5 (00:20→22:07)
[2018-11-05] MEDS: METOCLOPRAMIDE 10 MG INJ IV ×4 (00:20→17:28)
[2018-11-05] MEDS: DEXTROSE 5%-0.45% NACL 1,000 ML IV (00:20)
[2018-11-05] MEDS: INSULIN ASPART [NOVOLOG] 3 ML PEN SC ×5 (01:00→17:39)
[2018-11-05] MEDS: METHADONE (1 MG/ML 5 ML PO UD SYG) PO ×4 (01:13→17:28)
[2018-11-05] MEDS: ACCU-CHEK XX ×2 (02:00)
[2018-11-05 06:22] LABS: ANION GAP 4 (5-13); BLOOD UREA NITROGEN 32 mg/dl (7-20); CALCIUM 7.1 mg/dl (8.4-10.2); CARBON DIOXIDE 27 mmol/L (21-31); CHLORIDE 100 mmol/L (97-110); CREATININE 2.73 mg/dl (0.61-1.24); Estimated GFR 25 mL/min (>60); GLUCOSE 91 mg/dl (70-220); POTASSIUM 3.9 mmol/L (3.5-5.1); SODIUM 131 mmol/L (135-144)
[2018-11-05] MEDS: BUMETANIDE 1 MG TAB PO ×2 (06:25→17:25)
[2018-11-05] MEDS: LEVOTHYROXINE 100 MCG TAB PO (06:25)
[2018-11-05] MEDS ORDERED: SEVOFLURANE 15 MIN (07:00)
[2018-11-05] MEDS: COLLAGENASE 5 GM (UD JAR) TOP ×2 (08:38→21:00)
[2018-11-05] MEDS: ARTIFICIAL TEARS 15 ML OPH BOTH EYES ×3 (08:38→21:06)
[2018-11-05] MEDS: ASCORBIC ACID 500 MG TAB PO (08:39)
[2018-11-05] MEDS: METOPROLOL 25 MG TAB PO ×2 (08:39→21:00)
[2018-11-05] MEDS: MULTIVIT/CA CARB/B CMPLX/FA TAB PO (08:39)
[2018-11-05] MEDS: DOCUSATE SODIUM 100 MG CAP PO (08:40)
[2018-11-05] MEDS: MIDODRINE 5 MG TAB PO ×3 (08:41→17:00)
[2018-11-05] MEDS: SODIUM HYPOCHLORITE (1/40) 1 LITER BTL IRR (08:41)
[2018-11-05] MEDS: HEPARIN 5,000 UNIT/1 ML VIAL SC (08:41)
[2018-11-05] MEDS: BALSAM PERU/CASTOR OIL 60 GM TUBE TOP ×2 (08:42→21:06)
[2018-11-05] MEDS ORDERED: FENTAnyl 50 MCG/ML VIAL ×2 (13:19→14:03)
[2018-11-05] MEDS: HEPARIN 1000 UNITS/ML 10 ML INJ (14:09)
[2018-11-05] MEDS: LIDOCAINE 1% (MPF) 30 ML INJ (14:12)
[2018-11-05] MEDS ORDERED: CEFAZOLIN 1 GM INJ (14:18)
[2018-11-05] MEDS ORDERED: LIDOCAINE 2% (SDV) 5 ML INJ (14:18)
[2018-11-05] MEDS ORDERED: ETOMIDATE 20 MG INJ (14:18)
[2018-11-05] MEDS ORDERED: ONDANSETRON 4 MG INJ (14:19)
[2018-11-05] MEDS ORDERED: HYDROmorphONE 1 MG/5 ML IV SYRINGE IV ×2 (14:36→15:00)
[2018-11-05] MEDS ORDERED: DIPHENHYDRAMINE 50 MG INJ IV (15:00)
[2018-11-05] MEDS ORDERED: LABETALOL HCL 20MG INJ IV (15:00)
[2018-11-05] MEDS ORDERED: ONDANSETRON 4 MG INJ IV (15:00)
[2018-11-05] MEDS ORDERED: FENTAnyl 50 MCG/ML VIAL IV (15:00)
[2018-11-05] MEDS: HYDROmorphONE 1 MG/5 ML IV SYRINGE IV (15:04)
[2018-11-05] MEDS: ONDANSETRON 4 MG INJ IV (20:53)
[2018-11-05] MEDS ORDERED: DEXTROSE 50% 50 ML SYRINGE IV (22:00)
[2018-11-05] MEDS ORDERED: GLUCAGON 1 MG INJ IM (22:00)
[2018-11-05] MEDS ORDERED: GLUCOSE GEL 15 GRAM TUBE PO ×2 (22:00)
[2018-11-05] MEDS: ALBUTEROL/IPRATROPIUM (NEB) 3 ML AMP HHN (23:35)
[2018-11-06] MEDS: traZODone 50 MG TAB PO ×2 (00:44→20:24)
[2018-11-06] MEDS: METHADONE (1 MG/ML 5 ML PO UD SYG) PO ×4 (00:44→18:03)
[2018-11-06] MEDS: METOCLOPRAMIDE 10 MG INJ IV ×4 (00:45→18:03)
[2018-11-06] MEDS: HEPARIN 5,000 UNIT/1 ML VIAL SC ×3 (00:49→20:22)
[2018-11-06] MEDS ORDERED: ACCU-CHEK XX (02:00)
[2018-11-06] MEDS: ACCU-CHEK XX (02:00)
[2018-11-06] MEDS: HYDROmorphONE 1 MG/ML SYG IV ×5 (02:47→20:18)
[2018-11-06] MEDS: EPOETIN ALFA-EPBX (ESRD) 3,000 UNIT/ML VIAL SC (05:26)
[2018-11-06] MEDS: BUMETANIDE 1 MG TAB PO ×2 (05:29→18:03)
[2018-11-06] MEDS: LEVOTHYROXINE 100 MCG TAB PO (06:33)
[2018-11-06] MEDS: INSULIN ASPART [NOVOLOG] 3 ML PEN SC ×4 (08:00→20:25)
[2018-11-06] MEDS: MIDODRINE 5 MG TAB PO ×3 (08:24→17:00)
[2018-11-06] MEDS: ONDANSETRON 4 MG INJ IV (09:31)
[2018-11-06] MEDS: ARTIFICIAL TEARS 15 ML OPH BOTH EYES ×3 (09:41→20:26)
[2018-11-06] MEDS: MULTIVIT/CA CARB/B CMPLX/FA TAB PO (09:46)
[2018-11-06] MEDS: ASCORBIC ACID 500 MG TAB PO (09:46)
[2018-11-06] MEDS: METOPROLOL 25 MG TAB PO ×2 (09:46→20:24)
[2018-11-06] MEDS: BALSAM PERU/CASTOR OIL 60 GM TUBE TOP ×2 (12:36→20:25)
[2018-11-06] MEDS: COLLAGENASE 5 GM (UD JAR) TOP ×2 (12:36→20:25)
[2018-11-06] MEDS: LEVOFLOXACIN 500MG/D5W (PMX) 100 ML IVPB (15:59)
[2018-11-06] MEDS: AMOXICILLIN 500 MG CAP PO (20:23)
[2018-11-07] MEDS: METOCLOPRAMIDE 10 MG INJ IV ×4 (00:09→19:02)
[2018-11-07] MEDS: HYDROmorphONE 1 MG/ML SYG IV ×5 (00:09→23:22)
[2018-11-07] MEDS: METHADONE (1 MG/ML 5 ML PO UD SYG) PO ×4 (01:00→21:27)
[2018-11-07] MEDS: ACCU-CHEK XX (01:54)
[2018-11-07] MEDS: LEVOTHYROXINE 100 MCG TAB PO (06:06)
[2018-11-07] MEDS: BUMETANIDE 1 MG TAB PO ×2 (06:06→19:02)
[2018-11-07] MEDS: INSULIN ASPART [NOVOLOG] 3 ML PEN SC ×4 (08:00→21:00)
[2018-11-07] MEDS: AMOXICILLIN 500 MG CAP PO ×2 (08:35→21:29)
[2018-11-07] MEDS: MULTIVIT/CA CARB/B CMPLX/FA TAB PO (08:35)
[2018-11-07] MEDS: COLLAGENASE 5 GM (UD JAR) TOP ×2 (08:36→21:27)
[2018-11-07] MEDS: ASCORBIC ACID 500 MG TAB PO (08:36)
[2018-11-07] MEDS: METOPROLOL 25 MG TAB PO (08:36)
[2018-11-07] MEDS: BALSAM PERU/CASTOR OIL 60 GM TUBE TOP ×2 (08:40→21:30)
[2018-11-07] MEDS: ARTIFICIAL TEARS 15 ML OPH BOTH EYES ×3 (08:41→21:00)
[2018-11-07] MEDS: HEPARIN 5,000 UNIT/1 ML VIAL SC ×2 (08:43→21:28)
[2018-11-07] MEDS: ONDANSETRON 4 MG INJ IV ×2 (08:55→22:18)
[2018-11-07] MEDS: MIDODRINE 5 MG TAB PO ×3 (08:56→17:00)
[2018-11-07 12:02] LABS: PROCALCITONIN 0.96 ng/mL (<0.10)
[2018-11-07] MEDS: HEPARIN 1000 UNITS/ML 10 ML INJ CATHETER (19:01)
[2018-11-07] MEDS: EPOETIN ALFA-EPBX (ESRD) 3,000 UNIT/ML VIAL SC (19:12)
[2018-11-07] MEDS: METOPROLOL 50 MG TAB PO (21:29)
[2018-11-07] MEDS: traZODone 50 MG TAB PO (21:29)
[2018-11-08] MEDS: METHADONE (1 MG/ML 5 ML PO UD SYG) PO ×4 (00:57→17:19)
[2018-11-08] MEDS: METOCLOPRAMIDE 10 MG INJ IV ×4 (00:58→17:18)
[2018-11-08] MEDS: ACCU-CHEK XX (01:00)
[2018-11-08] MEDS: HYDROmorphONE 1 MG/ML SYG IV ×4 (04:51→20:14)
[2018-11-08] MEDS: BUMETANIDE 1 MG TAB PO ×2 (06:07→17:19)
[2018-11-08] MEDS: LEVOTHYROXINE 100 MCG TAB PO (06:08)
[2018-11-08] MEDS: INSULIN ASPART [NOVOLOG] 3 ML PEN SC ×4 (08:00→20:22)
[2018-11-08] MEDS: MIDODRINE 5 MG TAB PO ×3 (09:00→17:00)
[2018-11-08] MEDS: AMOXICILLIN 500 MG CAP PO ×2 (09:04→20:12)
[2018-11-08] MEDS: COLLAGENASE 5 GM (UD JAR) TOP ×2 (09:04→20:18)
[2018-11-08] MEDS: HEPARIN 5,000 UNIT/1 ML VIAL SC ×2 (09:04→20:22)
[2018-11-08] MEDS: MULTIVIT/CA CARB/B CMPLX/FA TAB PO (09:05)
[2018-11-08] MEDS: ASCORBIC ACID 500 MG TAB PO (09:05)
[2018-11-08] MEDS: ARTIFICIAL TEARS 15 ML OPH BOTH EYES ×3 (09:06→20:44)
[2018-11-08] MEDS: METOPROLOL 50 MG TAB PO ×2 (09:06→20:13)
[2018-11-08] MEDS: BALSAM PERU/CASTOR OIL 60 GM TUBE TOP ×2 (09:07→20:44)
[2018-11-08] MEDS: ALTEPLASE (CATHFLO) 2 MG INJ CATHETER ×2 (09:12→09:13)
[2018-11-08] MEDS: ALBUTEROL/IPRATROPIUM (NEB) 3 ML AMP HHN ×2 (09:54→22:59)
[2018-11-08] MEDS: LEVOFLOXACIN 500MG/D5W (PMX) 100 ML IVPB (14:01)
[2018-11-08] MEDS: ONDANSETRON 4 MG INJ IV (15:07)
[2018-11-08] MEDS: traZODone 50 MG TAB PO (20:12)
[2018-11-09] MEDS: HYDROmorphONE 1 MG/ML SYG IV ×5 (00:11→20:34)
[2018-11-09] MEDS: METOCLOPRAMIDE 10 MG INJ IV ×5 (00:11→23:52)
[2018-11-09] MEDS: METHADONE (1 MG/ML 5 ML PO UD SYG) PO ×5 (00:12→23:52)
[2018-11-09] MEDS: ACCU-CHEK XX (00:58)
[2018-11-09] MEDS: LEVOTHYROXINE 100 MCG TAB PO (05:40)
[2018-11-09] MEDS: BUMETANIDE 1 MG TAB PO ×2 (05:40→17:27)
[2018-11-09] MEDS: INSULIN ASPART [NOVOLOG] 3 ML PEN SC ×4 (08:00→20:35)
[2018-11-09] MEDS: AMOXICILLIN 500 MG CAP PO (08:43)
[2018-11-09] MEDS: COLLAGENASE 5 GM (UD JAR) TOP ×2 (08:43→20:28)
[2018-11-09] MEDS: MULTIVIT/CA CARB/B CMPLX/FA TAB PO (08:43)
[2018-11-09] MEDS: METOPROLOL 50 MG TAB PO ×2 (08:44→20:29)
[2018-11-09] MEDS: ASCORBIC ACID 500 MG TAB PO (08:45)
[2018-11-09] MEDS: HEPARIN 5,000 UNIT/1 ML VIAL SC ×2 (08:46→20:33)
[2018-11-09] MEDS: MIDODRINE 5 MG TAB PO ×3 (08:48→16:39)
[2018-11-09] MEDS: ARTIFICIAL TEARS 15 ML OPH BOTH EYES ×3 (08:48→20:41)
[2018-11-09] MEDS: ONDANSETRON 4 MG INJ IV ×2 (08:48→22:23)
[2018-11-09] MEDS: BALSAM PERU/CASTOR OIL 60 GM TUBE TOP ×2 (08:51→20:27)
[2018-11-09] MEDS: traZODone 50 MG TAB PO (20:28)
[2018-11-10] MEDS: HYDROmorphONE 1 MG/ML SYG IV ×5 (00:59→23:23)
[2018-11-10] MEDS: ACCU-CHEK XX (02:00)
[2018-11-10] MEDS: BUMETANIDE 1 MG TAB PO ×2 (06:06→17:20)
[2018-11-10] MEDS: LEVOTHYROXINE 100 MCG TAB PO (06:07)
[2018-11-10] MEDS: METOCLOPRAMIDE 10 MG INJ IV ×3 (06:07→17:20)
[2018-11-10] MEDS: METHADONE (1 MG/ML 5 ML PO UD SYG) PO ×3 (07:56→17:20)
[2018-11-10] MEDS: INSULIN ASPART [NOVOLOG] 3 ML PEN SC ×4 (08:00→21:00)
[2018-11-10] MEDS: ONDANSETRON 4 MG INJ IV (08:06)
[2018-11-10] MEDS: METOPROLOL 50 MG TAB PO ×2 (08:08→21:38)
[2018-11-10] MEDS: COLLAGENASE 5 GM (UD JAR) TOP ×2 (08:08→21:47)
[2018-11-10] MEDS: MIDODRINE 5 MG TAB PO ×3 (08:08→17:00)
[2018-11-10] MEDS: ASCORBIC ACID 500 MG TAB PO (08:09)
[2018-11-10] MEDS: BALSAM PERU/CASTOR OIL 60 GM TUBE TOP ×2 (08:09→21:47)
[2018-11-10] MEDS: MULTIVIT/CA CARB/B CMPLX/FA TAB PO (08:09)
[2018-11-10] MEDS: HEPARIN 5,000 UNIT/1 ML VIAL SC ×2 (08:10→21:44)
[2018-11-10] MEDS: ARTIFICIAL TEARS 15 ML OPH BOTH EYES ×3 (08:11→21:00)
[2018-11-10] MEDS: ALBUMIN HUMAN 25% 100 ML IV (15:58)
[2018-11-10] MEDS: HEPARIN 1000 UNITS/ML 10 ML INJ CATHETER (16:35)
[2018-11-10] MEDS: EPOETIN ALFA-EPBX (ESRD) 3,000 UNIT/ML VIAL SC (18:10)
[2018-11-10] MEDS: traZODone 50 MG TAB PO (21:38)
[2018-11-11] MEDS: METHADONE (1 MG/ML 5 ML PO UD SYG) PO ×4 (00:28→18:46)
[2018-11-11] MEDS: METOCLOPRAMIDE 10 MG INJ IV ×4 (00:32→17:36)
[2018-11-11] MEDS: ACCU-CHEK XX (02:00)
[2018-11-11] MEDS: HYDROmorphONE 1 MG/ML SYG IV ×5 (03:34→21:41)
[2018-11-11] MEDS: ALBUTEROL/IPRATROPIUM (NEB) 3 ML AMP HHN ×2 (03:36→15:41)
[2018-11-11] MEDS: LEVOTHYROXINE 100 MCG TAB PO (06:22)
[2018-11-11] MEDS: BUMETANIDE 1 MG TAB PO ×2 (06:22→17:47)
[2018-11-11] MEDS: INSULIN ASPART [NOVOLOG] 3 ML PEN SC ×4 (08:00→20:48)
[2018-11-11] MEDS: MIDODRINE 5 MG TAB PO ×3 (08:47→17:00)
[2018-11-11] MEDS: MULTIVIT/CA CARB/B CMPLX/FA TAB PO (08:47)
[2018-11-11] MEDS: ASCORBIC ACID 500 MG TAB PO (08:47)
[2018-11-11] MEDS: METOPROLOL 50 MG TAB PO ×2 (08:47→20:37)
[2018-11-11] MEDS: HEPARIN 5,000 UNIT/1 ML VIAL SC ×2 (08:49→20:47)
[2018-11-11] MEDS: COLLAGENASE 5 GM (UD JAR) TOP ×2 (08:57→20:39)
[2018-11-11] MEDS: ARTIFICIAL TEARS 15 ML OPH BOTH EYES ×3 (08:57→20:39)
[2018-11-11] MEDS: BALSAM PERU/CASTOR OIL 60 GM TUBE TOP ×2 (08:57→20:39)
[2018-11-11 09:10] LABS: HCVA NOTE SEE ABOVE
[2018-11-11] MEDS: LUBIPROSTONE 8 MCG CAPSULE PO ×2 (13:08→20:36)
[2018-11-11] MEDS: traZODone 50 MG TAB PO (20:36)
[2018-11-12] MEDS: METOCLOPRAMIDE 10 MG INJ IV ×4 (00:11→17:50)
[2018-11-12] MEDS: METHADONE (1 MG/ML 5 ML PO UD SYG) PO ×4 (00:12→17:51)
[2018-11-12] MEDS: HYDROmorphONE 1 MG/ML SYG IV ×6 (01:34→23:53)
[2018-11-12] MEDS: ACCU-CHEK XX (02:00)
[2018-11-12] MEDS: BUMETANIDE 1 MG TAB PO ×2 (05:41→18:03)
[2018-11-12 05:55] LABS: ADD MAN DIFF? NO
[2018-11-12 06:08] LABS: BASOPHILS % 0.3 % (0.0-2.0); EOSINOPHILS # 0.5 10^3/ul (0.0-0.5); EOSINOPHILS % 5.9 % (0.0-7.0); HEMATOCRIT 25.4 % (42.0-52.0); HEMOGLOBIN 7.9 g/dl (14.0-18.0); LYMPHOCYTES % 22.3 % (15.0-51.0); MEAN CORPUSCULAR HEMOGLOBIN 27.9 pg (29.0-33.0); MEAN CORPUSCULAR HGB CONC 31.1 g/dl (32.0-37.0); MEAN CORPUSCULAR VOLUME 89.8 fl (82.0-101.0); MEAN PLATELET VOLUME 8.4 fl (7.4-10.4); MONOCYTE # 0.6 10^3/ul (0.3-0.9); MONOCYTES % 6.3 % (0.0-11.0); NEUTROPHIL # 5.7 10^3/ul (1.6-7.5); NEUTROPHILS % 64.6 % (39.0-77.0); PLATELET COUNT 175 10^3/UL (140-415); RED BLOOD COUNT 2.83 10^6/ul (4.70-6.10); RED CELL DISTRIBUTION WIDTH 15.9 % (11.5-14.5)
[2018-11-12 06:08] LABS: WHITE BLOOD COUNT 8.9 10^3/ul (4.8-10.8)
[2018-11-12] MEDS: LEVOTHYROXINE 100 MCG TAB PO (06:30)
[2018-11-12 06:51] LABS: ANION GAP 3 (5-13); BLOOD UREA NITROGEN 20 mg/dl (7-20); CALCIUM 7.2 mg/dl (8.4-10.2); CARBON DIOXIDE 28 mmol/L (21-31); CHLORIDE 100 mmol/L (97-110); CREATININE 2.73 mg/dl (0.61-1.24); Estimated GFR 25 mL/min (>60); GLUCOSE 76 mg/dl (70-220); POTASSIUM 4.2 mmol/L (3.5-5.1); SODIUM 131 mmol/L (135-144)
[2018-11-12] MEDS: INSULIN ASPART [NOVOLOG] 3 ML PEN SC ×4 (08:00→21:00)
[2018-11-12] MEDS: MULTIVIT/CA CARB/B CMPLX/FA TAB PO (08:56)
[2018-11-12] MEDS: ASCORBIC ACID 500 MG TAB PO (08:56)
[2018-11-12] MEDS: MIDODRINE 5 MG TAB PO ×3 (08:56→17:00)
[2018-11-12] MEDS: METOPROLOL 50 MG TAB PO ×2 (08:57→21:38)
[2018-11-12] MEDS: HEPARIN 5,000 UNIT/1 ML VIAL SC ×2 (08:59→21:37)
[2018-11-12] MEDS: ARTIFICIAL TEARS 15 ML OPH BOTH EYES ×3 (09:00→21:39)
[2018-11-12] MEDS: BALSAM PERU/CASTOR OIL 60 GM TUBE TOP ×2 (09:00→21:40)
[2018-11-12] MEDS: COLLAGENASE 5 GM (UD JAR) TOP ×2 (09:00→21:39)
[2018-11-12] MEDS: LUBIPROSTONE 8 MCG CAPSULE PO ×2 (11:17→21:37)
[2018-11-12] MEDS: HEPARIN 1000 UNITS/ML 10 ML INJ CATHETER (17:35)
[2018-11-12] MEDS: EPOETIN ALFA-EPBX (ESRD) 3,000 UNIT/ML VIAL SC (17:52)
[2018-11-12] MEDS: traZODone 50 MG TAB PO (21:38)
[2018-11-12] MEDS: ONDANSETRON 4 MG INJ IV (22:05)
[2018-11-13] MEDS: METHADONE (1 MG/ML 5 ML PO UD SYG) PO ×5 (00:52→23:16)
[2018-11-13] MEDS: METOCLOPRAMIDE 10 MG INJ IV ×5 (00:52→22:47)
[2018-11-13] MEDS: ACCU-CHEK XX (01:57)
[2018-11-13] MEDS: HYDROmorphONE 1 MG/ML SYG IV ×5 (03:54→20:34)
[2018-11-13 06:02] LABS: ADD MAN DIFF? NO
[2018-11-13 06:13] LABS: WHITE BLOOD COUNT 8.2 10^3/ul (4.8-10.8)
[2018-11-13 06:13] LABS: BASOPHILS % 0.4 % (0.0-2.0); EOSINOPHILS # 0.4 10^3/ul (0.0-0.5); HEMATOCRIT 25.4 % (42.0-52.0); HEMOGLOBIN 7.7 g/dl (14.0-18.0); LYMPHOCYTES # 1.8 10^3/ul (0.8-2.9); LYMPHOCYTES % 21.9 % (15.0-51.0); MEAN CORPUSCULAR HEMOGLOBIN 27.4 pg (29.0-33.0); MEAN CORPUSCULAR HGB CONC 30.3 g/dl (32.0-37.0); MEAN CORPUSCULAR VOLUME 90.4 fl (82.0-101.0); MEAN PLATELET VOLUME 8.7 fl (7.4-10.4); MONOCYTE # 0.5 10^3/ul (0.3-0.9); MONOCYTES % 6.6 % (0.0-11.0); NEUTROPHIL # 5.4 10^3/ul (1.6-7.5); NEUTROPHILS % 65.4 % (39.0-77.0); PLATELET COUNT 184 10^3/UL (140-415); RED BLOOD COUNT 2.81 10^6/ul (4.70-6.10); RED CELL DISTRIBUTION WIDTH 16.1 % (11.5-14.5)
[2018-11-13] MEDS: LEVOTHYROXINE 100 MCG TAB PO (06:26)
[2018-11-13] MEDS: BUMETANIDE 1 MG TAB PO ×2 (06:26→17:08)
[2018-11-13 06:32] LABS: ANION GAP 2 (5-13); BLOOD UREA NITROGEN 12 mg/dl (7-20); CALCIUM 7.3 mg/dl (8.4-10.2); CARBON DIOXIDE 29 mmol/L (21-31); CHLORIDE 101 mmol/L (97-110); CREATININE 2.03 mg/dl (0.61-1.24); Estimated GFR 35 mL/min (>60); GLUCOSE 94 mg/dl (70-220); POTASSIUM 3.9 mmol/L (3.5-5.1); SODIUM 132 mmol/L (135-144)
[2018-11-13] MEDS: INSULIN ASPART [NOVOLOG] 3 ML PEN SC ×4 (08:00→20:47)
[2018-11-13] MEDS: MULTIVIT/CA CARB/B CMPLX/FA TAB PO (08:07)
[2018-11-13] MEDS: ASCORBIC ACID 500 MG TAB PO (08:07)
[2018-11-13] MEDS: LUBIPROSTONE 8 MCG CAPSULE PO ×2 (08:07→20:37)
[2018-11-13] MEDS: METOPROLOL 50 MG TAB PO ×2 (08:09→20:40)
[2018-11-13] MEDS: BALSAM PERU/CASTOR OIL 60 GM TUBE TOP ×2 (08:14→20:41)
[2018-11-13] MEDS: COLLAGENASE 5 GM (UD JAR) TOP ×2 (08:14→20:36)
[2018-11-13] MEDS: HEPARIN 5,000 UNIT/1 ML VIAL SC ×2 (08:16→20:38)
[2018-11-13] MEDS: ARTIFICIAL TEARS 15 ML OPH BOTH EYES ×3 (08:23→20:34)
[2018-11-13] MEDS: MIDODRINE 5 MG TAB PO ×3 (08:25→17:00)
[2018-11-13] MEDS: ONDANSETRON 4 MG INJ IV (08:46)
[2018-11-13] MEDS: ALBUTEROL/IPRATROPIUM (NEB) 3 ML AMP HHN (10:14)
[2018-11-13] MEDS: traZODone 50 MG TAB PO (20:37)
[2018-11-14] MEDS: HYDROmorphONE 1 MG/ML SYG IV ×6 (00:37→22:23)
[2018-11-14] MEDS: ACCU-CHEK XX (01:08)
[2018-11-14] MEDS: METOCLOPRAMIDE 10 MG INJ IV ×3 (06:29→17:20)
[2018-11-14] MEDS: METHADONE (1 MG/ML 5 ML PO UD SYG) PO ×3 (06:29→18:00)
[2018-11-14] MEDS: LEVOTHYROXINE 100 MCG TAB PO (06:29)
[2018-11-14] MEDS: BUMETANIDE 1 MG TAB PO ×2 (06:29→17:20)
[2018-11-14] MEDS: INSULIN ASPART [NOVOLOG] 3 ML PEN SC ×4 (08:00→20:26)
[2018-11-14] MEDS: COLLAGENASE 5 GM (UD JAR) TOP ×2 (08:05→20:38)
[2018-11-14] MEDS: MULTIVIT/CA CARB/B CMPLX/FA TAB PO (08:06)
[2018-11-14] MEDS: ASCORBIC ACID 500 MG TAB PO (08:06)
[2018-11-14] MEDS: LUBIPROSTONE 8 MCG CAPSULE PO ×2 (08:06→20:25)
[2018-11-14] MEDS: METOPROLOL 50 MG TAB PO ×2 (08:06→20:26)
[2018-11-14] MEDS: MIDODRINE 5 MG TAB PO ×3 (08:06→17:00)
[2018-11-14] MEDS: BALSAM PERU/CASTOR OIL 60 GM TUBE TOP ×2 (08:07→20:38)
[2018-11-14] MEDS: HEPARIN 5,000 UNIT/1 ML VIAL SC ×2 (08:08→20:34)
[2018-11-14] MEDS: ARTIFICIAL TEARS 15 ML OPH BOTH EYES ×3 (08:11→20:35)
[2018-11-14 08:34] LABS: ADD MAN DIFF? NO
[2018-11-14 08:39] LABS: WHITE BLOOD COUNT 8.9 10^3/ul (4.8-10.8)
[2018-11-14 08:39] LABS: BASOPHILS % 0.4 % (0.0-2.0); EOSINOPHILS # 0.4 10^3/ul (0.0-0.5); EOSINOPHILS % 3.9 % (0.0-7.0); HEMATOCRIT 25.4 % (42.0-52.0); HEMOGLOBIN 7.6 g/dl (14.0-18.0); LYMPHOCYTES # 1.7 10^3/ul (0.8-2.9); LYMPHOCYTES % 19.1 % (15.0-51.0); MEAN CORPUSCULAR HEMOGLOBIN 27.2 pg (29.0-33.0); MEAN CORPUSCULAR HGB CONC 29.9 g/dl (32.0-37.0); MEAN PLATELET VOLUME 8.6 fl (7.4-10.4); MONOCYTE # 0.6 10^3/ul (0.3-0.9); MONOCYTES % 6.2 % (0.0-11.0); NEUTROPHIL # 6.2 10^3/ul (1.6-7.5); NEUTROPHILS % 69.7 % (39.0-77.0); PLATELET COUNT 203 10^3/UL (140-415); RED BLOOD COUNT 2.79 10^6/ul (4.70-6.10); RED CELL DISTRIBUTION WIDTH 16.2 % (11.5-14.5)
[2018-11-14] MEDS: ONDANSETRON 4 MG INJ IV ×2 (08:54→22:23)
[2018-11-14 08:56] LABS: ANION GAP 4 (5-13); BLOOD UREA NITROGEN 17 mg/dl (7-20); CALCIUM 7.4 mg/dl (8.4-10.2); CARBON DIOXIDE 27 mmol/L (21-31); CHLORIDE 101 mmol/L (97-110); CREATININE 2.57 mg/dl (0.61-1.24); Estimated GFR 26 mL/min (>60); GLUCOSE 120 mg/dl (70-220); POTASSIUM 4.2 mmol/L (3.5-5.1); SODIUM 132 mmol/L (135-144)
[2018-11-14] MEDS: SOD CHLORIDE 0.9% 250 ML IV* (10:51)
[2018-11-14 13:43] LABS: IMMEDIATE SPIN CROSSMATCH 1 1
[2018-11-14] MEDS: ALBUTEROL/IPRATROPIUM (NEB) 3 ML AMP HHN (15:51)
[2018-11-14] MEDS: HEPARIN 1000 UNITS/ML 10 ML INJ CATHETER (16:33)
[2018-11-14] MEDS: CYCLOBENZAPRINE 10 MG TAB PO (17:20)
[2018-11-14] MEDS: EPOETIN ALFA-EPBX (ESRD) 10,000 UNIT/ML VIAL SC (17:25)
[2018-11-14] MEDS: traZODone 50 MG TAB PO (20:25)
[2018-11-15] MEDS: METOCLOPRAMIDE 10 MG INJ IV ×4 (00:29→17:59)
[2018-11-15] MEDS: METHADONE (1 MG/ML 5 ML PO UD SYG) PO ×4 (00:29→17:56)
[2018-11-15] MEDS: ACCU-CHEK XX (01:21)
[2018-11-15] MEDS: HYDROmorphONE 1 MG/ML SYG IV ×5 (02:52→21:52)
[2018-11-15] MEDS: BUMETANIDE 1 MG TAB PO ×2 (05:13→17:58)
[2018-11-15] MEDS: LEVOTHYROXINE 100 MCG TAB PO (06:27)
[2018-11-15 07:15] LABS: ADD MAN DIFF? NO
[2018-11-15 07:19] LABS: BASOPHILS % 0.4 % (0.0-2.0); EOSINOPHILS # 0.4 10^3/ul (0.0-0.5); EOSINOPHILS % 4.8 % (0.0-7.0); HEMATOCRIT 29.5 % (42.0-52.0); HEMOGLOBIN 9.1 g/dl (14.0-18.0); LYMPHOCYTES # 2.3 10^3/ul (0.8-2.9); LYMPHOCYTES % 25.1 % (15.0-51.0); MEAN CORPUSCULAR HEMOGLOBIN 27.6 pg (29.0-33.0); MEAN CORPUSCULAR HGB CONC 30.8 g/dl (32.0-37.0); MEAN CORPUSCULAR VOLUME 89.4 fl (82.0-101.0); MEAN PLATELET VOLUME 8.7 fl (7.4-10.4); MONOCYTE # 0.6 10^3/ul (0.3-0.9); MONOCYTES % 6.9 % (0.0-11.0); NEUTROPHIL # 5.6 10^3/ul (1.6-7.5); PLATELET COUNT 196 10^3/UL (140-415); RED CELL DISTRIBUTION WIDTH 16.2 % (11.5-14.5)
[2018-11-15] MEDS: INSULIN ASPART [NOVOLOG] 3 ML PEN SC ×4 (08:00→21:00)
[2018-11-15] MEDS: COLLAGENASE 5 GM (UD JAR) TOP ×2 (08:19→21:49)
[2018-11-15] MEDS: ARTIFICIAL TEARS 15 ML OPH BOTH EYES ×3 (08:19→21:48)
[2018-11-15] MEDS: BALSAM PERU/CASTOR OIL 60 GM TUBE TOP ×2 (08:19→21:53)
[2018-11-15] MEDS: MULTIVIT/CA CARB/B CMPLX/FA TAB PO (08:20)
[2018-11-15] MEDS: ASCORBIC ACID 500 MG TAB PO (08:20)
[2018-11-15] MEDS: LUBIPROSTONE 8 MCG CAPSULE PO ×2 (08:20→21:50)
[2018-11-15] MEDS: METOPROLOL 50 MG TAB PO ×2 (08:21→21:51)
[2018-11-15] MEDS: MIDODRINE 5 MG TAB PO ×3 (08:21→17:00)
[2018-11-15] MEDS: HEPARIN 5,000 UNIT/1 ML VIAL SC ×2 (08:29→21:48)
[2018-11-15] MEDS: ONDANSETRON 4 MG INJ IV (14:52)
[2018-11-15] MEDS: traZODone 50 MG TAB PO (21:50)
[2018-11-16] MEDS: METHADONE (1 MG/ML 5 ML PO UD SYG) PO ×5 (00:40→23:39)
[2018-11-16] MEDS: METOCLOPRAMIDE 10 MG INJ IV ×5 (00:40→23:39)
[2018-11-16] MEDS: ACCU-CHEK XX (02:00)
[2018-11-16] MEDS: HYDROmorphONE 1 MG/ML SYG IV ×5 (02:28→20:16)
[2018-11-16] MEDS: BUMETANIDE 1 MG TAB PO ×2 (06:12→17:45)
[2018-11-16] MEDS: LEVOTHYROXINE 100 MCG TAB PO (06:12)
[2018-11-16] MEDS: MIDODRINE 5 MG TAB PO ×3 (09:00→17:00)
[2018-11-16] MEDS: LUBIPROSTONE 8 MCG CAPSULE PO ×2 (09:00→20:20)
[2018-11-16] MEDS: ARTIFICIAL TEARS 15 ML OPH BOTH EYES ×3 (09:00→20:39)
[2018-11-16] MEDS: HEPARIN 5,000 UNIT/1 ML VIAL SC ×2 (09:12→20:28)
[2018-11-16] MEDS: COLLAGENASE 5 GM (UD JAR) TOP ×2 (09:13→20:30)
[2018-11-16] MEDS: BALSAM PERU/CASTOR OIL 60 GM TUBE TOP ×2 (09:14→20:30)
[2018-11-16] MEDS: ASCORBIC ACID 500 MG TAB PO (09:15)
[2018-11-16] MEDS: MULTIVIT/CA CARB/B CMPLX/FA TAB PO (09:15)
[2018-11-16] MEDS: INSULIN ASPART [NOVOLOG] 3 ML PEN SC ×4 (09:16→20:24)
[2018-11-16] MEDS: METOPROLOL 50 MG TAB PO ×2 (09:16→20:19)
[2018-11-16] MEDS: ONDANSETRON 4 MG INJ IV ×3 (09:19→23:39)
[2018-11-16] MEDS: traZODone 50 MG TAB PO (20:20)
[2018-11-16] MEDS: DAKINS 0.0125%(1/40) 473 ML SOLUTION TP (20:34)
[2018-11-17] MEDS: HYDROmorphONE 1 MG/ML SYG IV ×6 (00:06→23:00)
[2018-11-17] MEDS: ACCU-CHEK XX (01:03)
[2018-11-17] MEDS: BUMETANIDE 1 MG TAB PO ×2 (06:09→17:50)
[2018-11-17] MEDS: METHADONE (1 MG/ML 5 ML PO UD SYG) PO ×3 (06:09→17:51)
[2018-11-17] MEDS: METOCLOPRAMIDE 10 MG INJ IV ×3 (06:09→17:50)
[2018-11-17] MEDS: LEVOTHYROXINE 100 MCG TAB PO (06:09)
[2018-11-17 06:31] LABS: ADD MAN DIFF? NO
[2018-11-17 06:40] LABS: WHITE BLOOD COUNT 9.6 10^3/ul (4.8-10.8)
[2018-11-17 06:40] LABS: BASOPHIL # 0.1 10^3/ul (0.0-0.1); BASOPHILS % 0.5 % (0.0-2.0); EOSINOPHILS # 0.5 10^3/ul (0.0-0.5); EOSINOPHILS % 5.2 % (0.0-7.0); HEMATOCRIT 27.6 % (42.0-52.0); HEMOGLOBIN 8.5 g/dl (14.0-18.0); LYMPHOCYTES # 2.1 10^3/ul (0.8-2.9); LYMPHOCYTES % 22.2 % (15.0-51.0); MEAN CORPUSCULAR HEMOGLOBIN 27.9 pg (29.0-33.0); MEAN CORPUSCULAR HGB CONC 30.8 g/dl (32.0-37.0); MEAN CORPUSCULAR VOLUME 90.5 fl (82.0-101.0); MEAN PLATELET VOLUME 8.6 fl (7.4-10.4); MONOCYTE # 0.5 10^3/ul (0.3-0.9); MONOCYTES % 5.6 % (0.0-11.0); NEUTROPHIL # 6.3 10^3/ul (1.6-7.5); PLATELET COUNT 179 10^3/UL (140-415); RED BLOOD COUNT 3.05 10^6/ul (4.70-6.10); RED CELL DISTRIBUTION WIDTH 16.8 % (11.5-14.5)
[2018-11-17 07:07] LABS: ANION GAP 1 (5-13); BLOOD UREA NITROGEN 20 mg/dl (7-20); CALCIUM 7.4 mg/dl (8.4-10.2); CARBON DIOXIDE 25 mmol/L (21-31); CHLORIDE 105 mmol/L (97-110); CREATININE 2.87 mg/dl (0.61-1.24); Estimated GFR 23 mL/min (>60); GLUCOSE 94 mg/dl (70-220); POTASSIUM 4.3 mmol/L (3.5-5.1); SODIUM 131 mmol/L (135-144)
[2018-11-17] MEDS: INSULIN ASPART [NOVOLOG] 3 ML PEN SC ×4 (08:00→21:00)
[2018-11-17] MEDS: ONDANSETRON 4 MG INJ IV ×2 (08:38→21:52)
[2018-11-17] MEDS: COLLAGENASE 5 GM (UD JAR) TOP ×2 (09:00→21:50)
[2018-11-17] MEDS: METOPROLOL 50 MG TAB PO ×2 (09:00→21:40)
[2018-11-17] MEDS: DAKINS 0.0125%(1/40) 473 ML SOLUTION TP ×2 (09:00→21:45)
[2018-11-17] MEDS: LUBIPROSTONE 8 MCG CAPSULE PO ×2 (09:00→21:00)
[2018-11-17] MEDS: BALSAM PERU/CASTOR OIL 60 GM TUBE TOP ×2 (09:00→21:45)
[2018-11-17] MEDS: MIDODRINE 5 MG TAB PO ×3 (09:00→17:00)
[2018-11-17] MEDS: ARTIFICIAL TEARS 15 ML OPH BOTH EYES ×3 (09:00→21:44)
[2018-11-17] MEDS: ASCORBIC ACID 500 MG TAB PO (09:05)
[2018-11-17] MEDS: MULTIVIT/CA CARB/B CMPLX/FA TAB PO (09:06)
[2018-11-17] MEDS: HEPARIN 5,000 UNIT/1 ML VIAL SC ×2 (09:10→21:48)
[2018-11-17] MEDS: ALBUTEROL/IPRATROPIUM (NEB) 3 ML AMP HHN ×2 (10:40→22:51)
[2018-11-17] MEDS: HEPARIN 1000 UNITS/ML 10 ML INJ CATHETER (13:05)
[2018-11-17] MEDS: EPOETIN ALFA-EPBX (ESRD) 10,000 UNIT/ML VIAL SC (17:59)
[2018-11-17] MEDS: traZODone 50 MG TAB PO (21:40)
[2018-11-18] MEDS: METHADONE (1 MG/ML 5 ML PO UD SYG) PO ×4 (00:01→17:11)
[2018-11-18] MEDS: ACCU-CHEK XX (02:00)
[2018-11-18] MEDS: HYDROmorphONE 1 MG/ML SYG IV ×6 (03:03→23:51)
[2018-11-18] MEDS: METOCLOPRAMIDE 10 MG INJ IV ×4 (05:44→17:11)
[2018-11-18] MEDS: BUMETANIDE 1 MG TAB PO ×2 (05:44→17:11)
[2018-11-18] MEDS: LEVOTHYROXINE 100 MCG TAB PO (05:46)
[2018-11-18] MEDS: METOPROLOL 50 MG TAB PO ×3 (08:30→21:53)
[2018-11-18] MEDS: MIDODRINE 5 MG TAB PO ×3 (08:31→17:00)
[2018-11-18] MEDS: ASCORBIC ACID 500 MG TAB PO (08:31)
[2018-11-18] MEDS: MULTIVIT/CA CARB/B CMPLX/FA TAB PO (08:31)
[2018-11-18] MEDS: HEPARIN 5,000 UNIT/1 ML VIAL SC ×2 (08:35→21:43)
[2018-11-18] MEDS: INSULIN ASPART [NOVOLOG] 3 ML PEN SC ×4 (08:36→21:00)
[2018-11-18] MEDS: COLLAGENASE 5 GM (UD JAR) TOP ×2 (08:41→21:00)
[2018-11-18] MEDS: LUBIPROSTONE 8 MCG CAPSULE PO ×2 (08:41→21:00)
[2018-11-18] MEDS: BALSAM PERU/CASTOR OIL 60 GM TUBE TOP ×2 (08:42→21:00)
[2018-11-18] MEDS: ARTIFICIAL TEARS 15 ML OPH BOTH EYES ×3 (08:42→21:00)
[2018-11-18] MEDS: DAKINS 0.0125%(1/40) 473 ML SOLUTION TP ×2 (08:42→21:00)
[2018-11-18] MEDS: CYCLOBENZAPRINE 10 MG TAB PO (18:31)
[2018-11-18] MEDS: traZODone 50 MG TAB PO ×2 (21:00→21:53)
[2018-11-19] MEDS: METHADONE (1 MG/ML 5 ML PO UD SYG) PO ×5 (00:45→23:36)
[2018-11-19] MEDS: METOCLOPRAMIDE 10 MG INJ IV ×5 (00:48→23:36)
[2018-11-19] MEDS: ACCU-CHEK XX (02:00)
[2018-11-19] MEDS: HYDROmorphONE 1 MG/ML SYG IV ×4 (04:27→20:51)
[2018-11-19] MEDS: LEVOTHYROXINE 100 MCG TAB PO (06:17)
[2018-11-19] MEDS: BUMETANIDE 1 MG TAB PO ×2 (06:17→17:38)
[2018-11-19 08:15] LABS: ADD MAN DIFF? NO
[2018-11-19 08:42] LABS: ANION GAP 2 (5-13); BASOPHIL # 0.1 10^3/ul (0.0-0.1); BASOPHILS % 0.6 % (0.0-2.0); BLOOD UREA NITROGEN 24 mg/dl (7-20); CARBON DIOXIDE 26 mmol/L (21-31); CHLORIDE 105 mmol/L (97-110); EOSINOPHILS # 0.6 10^3/ul (0.0-0.5); Estimated GFR 25 mL/min (>60); GLUCOSE 83 mg/dl (70-220); HEMATOCRIT 28.1 % (42.0-52.0); HEMOGLOBIN 8.6 g/dl (14.0-18.0); LYMPHOCYTES % 24.9 % (15.0-51.0); MEAN CORPUSCULAR HGB CONC 30.6 g/dl (32.0-37.0); MEAN CORPUSCULAR VOLUME 91.5 fl (82.0-101.0); MEAN PLATELET VOLUME 8.9 fl (7.4-10.4); MONOCYTE # 0.5 10^3/ul (0.3-0.9); MONOCYTES % 6.6 % (0.0-11.0); NEUTROPHIL # 4.8 10^3/ul (1.6-7.5); NEUTROPHILS % 60.1 % (39.0-77.0); PLATELET COUNT 182 10^3/UL (140-415); POTASSIUM 4.3 mmol/L (3.5-5.1); RED BLOOD COUNT 3.07 10^6/ul (4.70-6.10); RED CELL DISTRIBUTION WIDTH 17.3 % (11.5-14.5); SODIUM 133 mmol/L (135-144)
[2018-11-19] MEDS: ARTIFICIAL TEARS 15 ML OPH BOTH EYES ×3 (09:00→21:15)
[2018-11-19] MEDS: MIDODRINE 5 MG TAB PO ×3 (09:00→17:00)
[2018-11-19] MEDS: LUBIPROSTONE 8 MCG CAPSULE PO ×2 (09:00→20:57)
[2018-11-19] MEDS: INSULIN ASPART [NOVOLOG] 3 ML PEN SC ×4 (09:01→21:00)
[2018-11-19] MEDS: ONDANSETRON 4 MG INJ IV ×2 (09:01→18:30)
[2018-11-19] MEDS: ASCORBIC ACID 500 MG TAB PO (09:02)
[2018-11-19] MEDS: COLLAGENASE 5 GM (UD JAR) TOP ×2 (09:02→21:16)
[2018-11-19] MEDS: MULTIVIT/CA CARB/B CMPLX/FA TAB PO (09:02)
[2018-11-19] MEDS: HEPARIN 5,000 UNIT/1 ML VIAL SC ×2 (09:04→21:06)
[2018-11-19] MEDS: DAKINS 0.0125%(1/40) 473 ML SOLUTION TP ×2 (09:04→21:14)
[2018-11-19] MEDS: BALSAM PERU/CASTOR OIL 60 GM TUBE TOP ×2 (09:05→21:15)
[2018-11-19] MEDS: CYCLOBENZAPRINE 10 MG TAB PO (12:55)
[2018-11-19] MEDS: HEPARIN 1000 UNITS/ML 10 ML INJ CATHETER (16:24)
[2018-11-19] MEDS: EPOETIN ALFA-EPBX (ESRD) 10,000 UNIT/ML VIAL SC (16:55)
[2018-11-19] MEDS: METOPROLOL 50 MG TAB PO (21:10)
[2018-11-20] MEDS: HYDROmorphONE 1 MG/ML SYG IV ×5 (00:57→21:09)
[2018-11-20] MEDS: ALBUTEROL/IPRATROPIUM (NEB) 3 ML AMP HHN (01:20)
[2018-11-20] MEDS: CYCLOBENZAPRINE 10 MG TAB PO (01:34)
[2018-11-20] MEDS: ACCU-CHEK XX (01:35)
[2018-11-20] MEDS: METHADONE (1 MG/ML 5 ML PO UD SYG) PO ×4 (05:35→23:51)
[2018-11-20] MEDS: BUMETANIDE 1 MG TAB PO ×2 (05:35→18:01)
[2018-11-20] MEDS: METOCLOPRAMIDE 10 MG INJ IV ×4 (05:35→23:54)
[2018-11-20 06:06] LABS: ADD MAN DIFF? NO
[2018-11-20] MEDS: LEVOTHYROXINE 100 MCG TAB PO (06:12)
[2018-11-20 06:16] LABS: BASOPHIL # 0.1 10^3/ul (0.0-0.1); BASOPHILS % 0.8 % (0.0-2.0); EOSINOPHILS # 0.5 10^3/ul (0.0-0.5); EOSINOPHILS % 5.8 % (0.0-7.0); HEMATOCRIT 29.3 % (42.0-52.0); HEMOGLOBIN 8.8 g/dl (14.0-18.0); LYMPHOCYTES # 2.2 10^3/ul (0.8-2.9); LYMPHOCYTES % 23.4 % (15.0-51.0); MEAN CORPUSCULAR HEMOGLOBIN 27.2 pg (29.0-33.0); MEAN CORPUSCULAR VOLUME 90.7 fl (82.0-101.0); MEAN PLATELET VOLUME 8.3 fl (7.4-10.4); MONOCYTE # 0.6 10^3/ul (0.3-0.9); MONOCYTES % 6.2 % (0.0-11.0); NEUTROPHIL # 5.8 10^3/ul (1.6-7.5); PLATELET COUNT 181 10^3/UL (140-415); RED BLOOD COUNT 3.23 10^6/ul (4.70-6.10); RED CELL DISTRIBUTION WIDTH 18.1 % (11.5-14.5)
[2018-11-20 06:16] LABS: WHITE BLOOD COUNT 9.2 10^3/ul (4.8-10.8)
[2018-11-20 06:38] LABS: ANION GAP 1 (5-13); BLOOD UREA NITROGEN 20 mg/dl (7-20); CALCIUM 7.3 mg/dl (8.4-10.2); CARBON DIOXIDE 30 mmol/L (21-31); CHLORIDE 105 mmol/L (97-110); CREATININE 2.18 mg/dl (0.61-1.24); Estimated GFR 32 mL/min (>60); GLUCOSE 93 mg/dl (70-220); POTASSIUM 4.4 mmol/L (3.5-5.1); SODIUM 136 mmol/L (135-144)
[2018-11-20] MEDS: INSULIN ASPART [NOVOLOG] 3 ML PEN SC ×4 (08:00→21:00)
[2018-11-20] MEDS: ONDANSETRON 4 MG INJ IV ×2 (08:58→18:00)
[2018-11-20] MEDS: METOPROLOL 50 MG TAB PO ×2 (08:58→21:50)
[2018-11-20] MEDS: ASCORBIC ACID 500 MG TAB PO (08:58)
[2018-11-20] MEDS: MULTIVIT/CA CARB/B CMPLX/FA TAB PO (08:58)
[2018-11-20] MEDS: HEPARIN 5,000 UNIT/1 ML VIAL SC ×2 (08:59→21:55)
[2018-11-20] MEDS: MIDODRINE 5 MG TAB PO ×3 (09:00→18:00)
[2018-11-20] MEDS: ARTIFICIAL TEARS 15 ML OPH BOTH EYES ×3 (09:00→21:52)
[2018-11-20] MEDS: DAKINS 0.0125%(1/40) 473 ML SOLUTION TP ×2 (09:00→21:51)
[2018-11-20] MEDS: COLLAGENASE 5 GM (UD JAR) TOP ×2 (09:00→21:52)
[2018-11-20] MEDS: LUBIPROSTONE 8 MCG CAPSULE PO ×3 (09:00→21:50)
[2018-11-20] MEDS: BALSAM PERU/CASTOR OIL 60 GM TUBE TOP ×2 (09:01→21:53)
[2018-11-20] MEDS ORDERED: HYDROmorphONE 1 MG/ML SYG IV (12:30)
[2018-11-20] MEDS: traZODone 50 MG TAB PO (21:50)
[2018-11-21] MEDS: ACCU-CHEK XX (01:58)
[2018-11-21] MEDS: HYDROmorphONE 1 MG/ML SYG IV ×3 (03:10→14:18)
[2018-11-21] MEDS: METOCLOPRAMIDE 10 MG INJ IV ×3 (06:34→17:16)
[2018-11-21] MEDS: BUMETANIDE 1 MG TAB PO ×2 (06:35→17:15)
[2018-11-21] MEDS: LEVOTHYROXINE 100 MCG TAB PO (06:35)
[2018-11-21] MEDS: METHADONE (1 MG/ML 5 ML PO UD SYG) PO ×3 (06:36→17:18)
[2018-11-21] MEDS: INSULIN ASPART [NOVOLOG] 3 ML PEN SC ×4 (08:00→21:00)
[2018-11-21] MEDS: METOPROLOL 50 MG TAB PO ×2 (08:15→21:29)
[2018-11-21] MEDS: ONDANSETRON 4 MG INJ IV ×2 (08:16→14:18)
[2018-11-21] MEDS: MIDODRINE 5 MG TAB PO ×3 (08:16→17:00)
[2018-11-21] MEDS: HEPARIN 5,000 UNIT/1 ML VIAL SC ×2 (08:19→21:32)
[2018-11-21] MEDS: BALSAM PERU/CASTOR OIL 60 GM TUBE TOP ×2 (08:20→21:40)
[2018-11-21] MEDS: COLLAGENASE 5 GM (UD JAR) TOP ×2 (08:20→21:40)
[2018-11-21] MEDS: MULTIVIT/CA CARB/B CMPLX/FA TAB PO (08:22)
[2018-11-21] MEDS: ARTIFICIAL TEARS 15 ML OPH BOTH EYES ×3 (08:23→21:00)
[2018-11-21] MEDS: LUBIPROSTONE 8 MCG CAPSULE PO ×2 (08:23→21:00)
[2018-11-21] MEDS: ASCORBIC ACID 500 MG TAB PO (08:23)
[2018-11-21] MEDS: HEPARIN 1000 UNITS/ML 10 ML INJ CATHETER (14:03)
[2018-11-21] MEDS: DAKINS 0.0125%(1/40) 473 ML SOLUTION TP ×2 (14:18→21:40)
[2018-11-21] MEDS: EPOETIN ALFA-EPBX (ESRD) 10,000 UNIT/ML VIAL SC (17:15)
[2018-11-21] MEDS ORDERED: VANCOMYCIN IV PER PHARMACY XX (18:00)
[2018-11-21] MEDS: ALBUTEROL/IPRATROPIUM (NEB) 3 ML AMP HHN (18:05)
[2018-11-21] MEDS: traZODone 50 MG TAB PO (21:29)
[2018-11-21] MEDS: VANCOMYCIN HCL 1.75 GM in SOD CHLORIDE 0.9% 500 ML IVPB (21:39)
[2018-11-22] MEDS: METOCLOPRAMIDE 10 MG INJ IV ×4 (00:36→17:41)
[2018-11-22] MEDS: METHADONE (1 MG/ML 5 ML PO UD SYG) PO ×4 (00:36→17:43)
[2018-11-22] MEDS: ALBUTEROL/IPRATROPIUM (NEB) 3 ML AMP HHN ×3 (01:00→23:26)
[2018-11-22] MEDS: HYDROmorphONE 1 MG/ML SYG IV ×6 (01:09→22:38)
[2018-11-22] MEDS: ACCU-CHEK XX (02:00)
[2018-11-22] MEDS: CYCLOBENZAPRINE 10 MG TAB PO (04:16)
[2018-11-22] MEDS: LEVOTHYROXINE 100 MCG TAB PO (06:50)
[2018-11-22] MEDS: BUMETANIDE 1 MG TAB PO ×2 (06:50→17:50)
[2018-11-22] MEDS: MIDODRINE 5 MG TAB PO ×3 (09:00→17:00)
[2018-11-22] MEDS: ARTIFICIAL TEARS 15 ML OPH BOTH EYES ×3 (09:00→21:00)
[2018-11-22] MEDS: MULTIVIT/CA CARB/B CMPLX/FA TAB PO (09:12)
[2018-11-22] MEDS: LUBIPROSTONE 8 MCG CAPSULE PO ×2 (09:12→21:00)
[2018-11-22] MEDS: COLLAGENASE 5 GM (UD JAR) TOP ×2 (09:12→21:39)
[2018-11-22] MEDS: ASCORBIC ACID 500 MG TAB PO (09:13)
[2018-11-22] MEDS: METOPROLOL 50 MG TAB PO ×2 (09:13→21:34)
[2018-11-22] MEDS: INSULIN ASPART [NOVOLOG] 3 ML PEN SC ×4 (09:18→21:00)
[2018-11-22] MEDS: HEPARIN 5,000 UNIT/1 ML VIAL SC ×2 (09:22→21:37)
[2018-11-22] MEDS: DAKINS 0.0125%(1/40) 473 ML SOLUTION TP ×2 (09:23→21:38)
[2018-11-22] MEDS: BALSAM PERU/CASTOR OIL 60 GM TUBE TOP (09:23)
[2018-11-22] MEDS: ONDANSETRON 4 MG INJ IV (16:33)
[2018-11-22] MEDS ORDERED: VANCOMYCIN HCL 1.25 GM in SOD CHLORIDE 0.9% 250 ML IVPB (21:00)
[2018-11-22] MEDS: traZODone 50 MG TAB PO (21:26)
[2018-11-23] MEDS: METOCLOPRAMIDE 10 MG INJ IV ×5 (00:41→23:20)
[2018-11-23] MEDS: METHADONE (1 MG/ML 5 ML PO UD SYG) PO ×5 (00:42→23:20)
[2018-11-23] MEDS: ACCU-CHEK XX (02:00)
[2018-11-23] MEDS: HYDROmorphONE 1 MG/ML SYG IV ×5 (02:45→20:38)
[2018-11-23 06:03] LABS: ADD MAN DIFF? NO
[2018-11-23] MEDS: BUMETANIDE 1 MG TAB PO ×2 (06:26→17:30)
[2018-11-23] MEDS: LEVOTHYROXINE 100 MCG TAB PO (06:31)
[2018-11-23 06:40] LABS: ANION GAP 5 (5-13); BLOOD UREA NITROGEN 28 mg/dl (7-20); CALCIUM 7.5 mg/dl (8.4-10.2); CARBON DIOXIDE 24 mmol/L (21-31); CHLORIDE 106 mmol/L (97-110); CREATININE 2.69 mg/dl (0.61-1.24); Estimated GFR 25 mL/min (>60); GLUCOSE 92 mg/dl (70-220); POTASSIUM 5.6 mmol/L (3.5-5.1); SODIUM 135 mmol/L (135-144)
[2018-11-23] MEDS: INSULIN ASPART [NOVOLOG] 3 ML PEN SC ×4 (08:00→21:00)
[2018-11-23] MEDS: MIDODRINE 5 MG TAB PO ×3 (08:12→17:00)
[2018-11-23] MEDS: COLLAGENASE 5 GM (UD JAR) TOP ×2 (08:12→21:26)
[2018-11-23] MEDS: ASCORBIC ACID 500 MG TAB PO (08:13)
[2018-11-23] MEDS: METOPROLOL 50 MG TAB PO ×2 (08:13→21:25)
[2018-11-23] MEDS: LUBIPROSTONE 8 MCG CAPSULE PO ×2 (08:13→21:00)
[2018-11-23] MEDS: MULTIVIT/CA CARB/B CMPLX/FA TAB PO (08:13)
[2018-11-23] MEDS: DAKINS 0.0125%(1/40) 473 ML SOLUTION TP ×2 (08:14→21:26)
[2018-11-23] MEDS: ARTIFICIAL TEARS 15 ML OPH BOTH EYES ×3 (08:14→21:00)
[2018-11-23] MEDS: HEPARIN 5,000 UNIT/1 ML VIAL SC ×2 (08:15→21:22)
[2018-11-23 08:52] LABS: WHITE BLOOD COUNT 7.8 10^3/ul (4.8-10.8)
[2018-11-23 08:53] LABS: BASOPHIL # 0.1 10^3/ul (0.0-0.1); BASOPHILS % 0.6 % (0.0-2.0); EOSINOPHILS # 0.6 10^3/ul (0.0-0.5); EOSINOPHILS % 7.5 % (0.0-7.0); HEMATOCRIT 26.7 % (42.0-52.0); LYMPHOCYTES # 2.3 10^3/ul (0.8-2.9); LYMPHOCYTES % 29.7 % (15.0-51.0); MEAN CORPUSCULAR VOLUME 93.4 fl (82.0-101.0); MEAN PLATELET VOLUME 8.9 fl (7.4-10.4); MONOCYTE # 0.6 10^3/ul (0.3-0.9); MONOCYTES % 8.1 % (0.0-11.0); NEUTROPHIL # 4.2 10^3/ul (1.6-7.5); NEUTROPHILS % 53.6 % (39.0-77.0); PLATELET COUNT 202 10^3/UL (140-415); RED BLOOD COUNT 2.86 10^6/ul (4.70-6.10); RED CELL DISTRIBUTION WIDTH 18.6 % (11.5-14.5)
[2018-11-23] MEDS: ALBUTEROL/IPRATROPIUM (NEB) 3 ML AMP HHN (09:48)
[2018-11-23] MEDS: NA POLYST SULFON 15 GM/60 ML BTL PO (12:53)
[2018-11-23] MEDS ORDERED: HYDROmorphONE 1 MG/ML SYG IV (15:30)
[2018-11-23] MEDS: traZODone 50 MG TAB PO (21:22)
[2018-11-24] MEDS: HYDROmorphONE 1 MG/ML SYG IV ×6 (00:39→21:25)
[2018-11-24] MEDS: ACCU-CHEK XX (01:58)
[2018-11-24] MEDS: BUMETANIDE 1 MG TAB PO ×2 (05:33→17:24)
[2018-11-24] MEDS: LEVOTHYROXINE 100 MCG TAB PO (05:34)
[2018-11-24] MEDS: METOCLOPRAMIDE 10 MG INJ IV ×4 (05:35→23:59)
[2018-11-24 05:52] LABS: ADD MAN DIFF? NO
[2018-11-24 05:56] LABS: BASOPHIL # 0.1 10^3/ul (0.0-0.1); BASOPHILS % 0.6 % (0.0-2.0); EOSINOPHILS # 0.7 10^3/ul (0.0-0.5); EOSINOPHILS % 8.4 % (0.0-7.0); HEMATOCRIT 27.1 % (42.0-52.0); LYMPHOCYTES # 1.8 10^3/ul (0.8-2.9); LYMPHOCYTES % 23.2 % (15.0-51.0); MEAN CORPUSCULAR HEMOGLOBIN 27.5 pg (29.0-33.0); MEAN CORPUSCULAR HGB CONC 29.5 g/dl (32.0-37.0); MEAN CORPUSCULAR VOLUME 93.1 fl (82.0-101.0); MEAN PLATELET VOLUME 8.7 fl (7.4-10.4); MONOCYTE # 0.6 10^3/ul (0.3-0.9); MONOCYTES % 7.8 % (0.0-11.0); NEUTROPHIL # 4.6 10^3/ul (1.6-7.5); NEUTROPHILS % 59.7 % (39.0-77.0); PLATELET COUNT 230 10^3/UL (140-415); RED BLOOD COUNT 2.91 10^6/ul (4.70-6.10); RED CELL DISTRIBUTION WIDTH 18.5 % (11.5-14.5)
[2018-11-24 05:56] LABS: WHITE BLOOD COUNT 7.7 10^3/ul (4.8-10.8)
[2018-11-24 06:28] LABS: ANION GAP 1 (5-13); BLOOD UREA NITROGEN 33 mg/dl (7-20); CALCIUM 7.8 mg/dl (8.4-10.2); CARBON DIOXIDE 26 mmol/L (21-31); CHLORIDE 108 mmol/L (97-110); CREATININE 3.61 mg/dl (0.61-1.24); Estimated GFR 18 mL/min (>60); GLUCOSE 86 mg/dl (70-220); POTASSIUM 5.1 mmol/L (3.5-5.1); SODIUM 135 mmol/L (135-144)
[2018-11-24] MEDS: METHADONE (1 MG/ML 5 ML PO UD SYG) PO ×3 (06:44→18:38)
[2018-11-24] MEDS: ALBUTEROL/IPRATROPIUM (NEB) 3 ML AMP HHN ×2 (07:28→23:06)
[2018-11-24] MEDS: INSULIN ASPART [NOVOLOG] 3 ML PEN SC ×4 (08:00→21:00)
[2018-11-24] MEDS: MULTIVIT/CA CARB/B CMPLX/FA TAB PO (08:36)
[2018-11-24] MEDS: LUBIPROSTONE 8 MCG CAPSULE PO ×2 (08:36→20:56)
[2018-11-24] MEDS: ARTIFICIAL TEARS 15 ML OPH BOTH EYES ×3 (08:36→22:33)
[2018-11-24] MEDS: ASCORBIC ACID 500 MG TAB PO (08:36)
[2018-11-24] MEDS: METOPROLOL 50 MG TAB PO ×3 (08:37→21:14)
[2018-11-24] MEDS: DAKINS 0.0125%(1/40) 473 ML SOLUTION TP ×2 (08:37→21:13)
[2018-11-24] MEDS: COLLAGENASE 5 GM (UD JAR) TOP ×2 (08:37→21:13)
[2018-11-24] MEDS: ONDANSETRON 4 MG INJ IV (08:41)
[2018-11-24] MEDS: MIDODRINE 5 MG TAB PO ×4 (08:41→16:40)
[2018-11-24] MEDS: HEPARIN 5,000 UNIT/1 ML VIAL SC ×2 (08:43→20:59)
[2018-11-24] MEDS: HEPARIN 1000 UNITS/ML 10 ML INJ CATHETER (17:22)
[2018-11-24] MEDS: EPOETIN ALFA-EPBX (ESRD) 10,000 UNIT/ML VIAL SC (17:25)
[2018-11-24] MEDS: traZODone 50 MG TAB PO (20:55)
[2018-11-25] MEDS: HYDROmorphONE 1 MG/ML SYG IV ×5 (01:26→22:36)
[2018-11-25] MEDS: ONDANSETRON 4 MG INJ IV ×3 (01:30→15:47)
[2018-11-25] MEDS: ACCU-CHEK XX (02:00)
[2018-11-25] MEDS: HYDROmorphONE 2 MG/ML SYG IV (05:41)
[2018-11-25] MEDS: BUMETANIDE 1 MG TAB PO ×2 (05:42→17:32)
[2018-11-25] MEDS: METOCLOPRAMIDE 10 MG INJ IV ×3 (05:42→17:33)
[2018-11-25] MEDS: METHADONE (1 MG/ML 5 ML PO UD SYG) PO ×4 (05:42→17:33)
[2018-11-25] MEDS: METOPROLOL 50 MG TAB PO ×3 (05:43→21:14)
[2018-11-25] MEDS: LEVOTHYROXINE 100 MCG TAB PO (05:43)
[2018-11-25 05:45] LABS: ADD MAN DIFF? NO
[2018-11-25 05:49] LABS: WHITE BLOOD COUNT 6.2 10^3/ul (4.8-10.8)
[2018-11-25 05:49] LABS: BASOPHILS % 0.6 % (0.0-2.0); EOSINOPHILS # 0.6 10^3/ul (0.0-0.5); EOSINOPHILS % 9.7 % (0.0-7.0); HEMATOCRIT 25.5 % (42.0-52.0); HEMOGLOBIN 7.7 g/dl (14.0-18.0); LYMPHOCYTES # 1.7 10^3/ul (0.8-2.9); LYMPHOCYTES % 27.9 % (15.0-51.0); MEAN CORPUSCULAR HGB CONC 30.2 g/dl (32.0-37.0); MEAN CORPUSCULAR VOLUME 92.7 fl (82.0-101.0); MEAN PLATELET VOLUME 8.7 fl (7.4-10.4); MONOCYTE # 0.6 10^3/ul (0.3-0.9); MONOCYTES % 9.2 % (0.0-11.0); NEUTROPHIL # 3.3 10^3/ul (1.6-7.5); NEUTROPHILS % 52.3 % (39.0-77.0); PLATELET COUNT 222 10^3/UL (140-415); RED BLOOD COUNT 2.75 10^6/ul (4.70-6.10); RED CELL DISTRIBUTION WIDTH 18.7 % (11.5-14.5)
[2018-11-25 06:31] LABS: ANION GAP 3 (5-13); BLOOD UREA NITROGEN 22 mg/dl (7-20); CALCIUM 7.5 mg/dl (8.4-10.2); CARBON DIOXIDE 26 mmol/L (21-31); CHLORIDE 107 mmol/L (97-110); CREATININE 2.58 mg/dl (0.61-1.24); Estimated GFR 26 mL/min (>60); GLUCOSE 114 mg/dl (70-220); POTASSIUM 4.6 mmol/L (3.5-5.1); SODIUM 136 mmol/L (135-144)
[2018-11-25] MEDS: ARTIFICIAL TEARS 15 ML OPH BOTH EYES ×3 (09:00→21:00)
[2018-11-25] MEDS: MIDODRINE 5 MG TAB PO ×3 (09:00→17:00)
[2018-11-25] MEDS: LUBIPROSTONE 8 MCG CAPSULE PO ×2 (09:02→21:00)
[2018-11-25] MEDS: INSULIN ASPART [NOVOLOG] 3 ML PEN SC ×4 (09:03→21:00)
[2018-11-25] MEDS: MULTIVIT/CA CARB/B CMPLX/FA TAB PO (09:03)
[2018-11-25] MEDS: COLLAGENASE 5 GM (UD JAR) TOP ×2 (09:05→21:20)
[2018-11-25] MEDS: ASCORBIC ACID 500 MG TAB PO (09:05)
[2018-11-25] MEDS: DAKINS 0.0125%(1/40) 473 ML SOLUTION TP ×2 (09:06→21:15)
[2018-11-25] MEDS: HEPARIN 5,000 UNIT/1 ML VIAL SC ×2 (09:13→21:26)
[2018-11-25] MEDS: ALBUTEROL/IPRATROPIUM (NEB) 3 ML AMP HHN ×2 (11:26→19:49)
[2018-11-25] MEDS: GUAIFENESIN/DM 5ML CUP PO ×2 (12:16→21:12)
[2018-11-25] MEDS ORDERED: NITROGLYCERIN AEROSOL (4.9 GM) (21:00)
[2018-11-25] MEDS: traZODone 50 MG TAB PO (21:12)
[2018-11-26] MEDS: METHADONE (1 MG/ML 5 ML PO UD SYG) PO ×4 (00:31→18:34)
[2018-11-26] MEDS: METOCLOPRAMIDE 10 MG INJ IV ×4 (00:31→18:30)
[2018-11-26] MEDS: ACCU-CHEK XX (02:00)
[2018-11-26] MEDS: HYDROmorphONE 1 MG/ML SYG IV (02:28)
[2018-11-26] MEDS ORDERED: hydrALAzine 20 MG INJ (05:20)
[2018-11-26 05:30] LABS: AADO2 Arterial 556.2 mmHg (7.0-24.0); Allen Test ACCEPTAB; Arterial Base Excess -4.6 mmol/L (-3.0-3); Arterial Blood Gas Oxygen Sat 75.4 mmHG (95.0-98.0); Arterial COHb 0.3 % (0.0-3.0); Arterial HCO3 27.7 mmol/L (22.0-26.0); Arterial MetHb 0.2 % (0.0-1.5); Arterial pCO2 102.7 mmhg (35-45); MODE NON-REBREATHING MASK; Site Left Radial
[2018-11-26 05:46] LABS: ADD MAN DIFF? NO
[2018-11-26 05:51] LABS: ABNORMAL IP MESSAGE 1; BASOPHIL # 0.2 10^3/ul (0.0-0.1); BASOPHILS % 0.8 % (0.0-2.0); EOSINOPHILS # 1.3 10^3/ul (0.0-0.5); EOSINOPHILS % 6.9 % (0.0-7.0); HEMOGLOBIN 9.9 g/dl (14.0-18.0); LYMPHOCYTES % 31.8 % (15.0-51.0); MEAN CORPUSCULAR HEMOGLOBIN 27.8 pg (29.0-33.0); MEAN CORPUSCULAR HGB CONC 29.1 g/dl (32.0-37.0); MEAN CORPUSCULAR VOLUME 95.5 fl (82.0-101.0); MEAN PLATELET VOLUME 8.3 fl (7.4-10.4); MONOCYTE # 1.2 10^3/ul (0.3-0.9); MONOCYTES % 6.3 % (0.0-11.0); NEUTROPHIL # 10.1 10^3/ul (1.6-7.5); NEUTROPHILS % 53.6 % (39.0-77.0); NUCLEATED RED BLOOD CELLS% 0.1 /100WBC (0.0-0.0); PLATELET COUNT 365 10^3/UL (140-415); POSITIVE DIFF @See below; RED BLOOD COUNT 3.56 10^6/ul (4.70-6.10); RED CELL DISTRIBUTION WIDTH 19.1 % (11.5-14.5)
[2018-11-26 05:51] LABS: WHITE BLOOD COUNT 18.9 10^3/ul (4.8-10.8)
[2018-11-26] MEDS: METOPROLOL 50 MG TAB PO (06:00)
[2018-11-26] MEDS ORDERED: NITROGLYCERIN 50 MG/D5W (PMX) 250 ML IV (06:00)
[2018-11-26] MEDS: LEVOTHYROXINE 100 MCG TAB PO (06:00)
[2018-11-26] MEDS: BUMETANIDE 1 MG TAB PO ×2 (06:00→18:30)
[2018-11-26 06:27] LABS: ANION GAP 5 (5-13); BLOOD UREA NITROGEN 25 mg/dl (7-20); CALCIUM 8.1 mg/dl (8.4-10.2); CARBON DIOXIDE 25 mmol/L (21-31); CHLORIDE 106 mmol/L (97-110); CREATININE 3.33 mg/dl (0.61-1.24); Estimated GFR 20 mL/min (>60); GLUCOSE 156 mg/dl (70-220); POTASSIUM 5.5 mmol/L (3.5-5.1); SODIUM 136 mmol/L (135-144)
[2018-11-26] MEDS: PIPER-TAZO 3.375 GM IV (PMX) 100 ML IVPB (06:30)
[2018-11-26 07:26] LABS: AADO2 Arterial 432.9 mmHg (7.0-24.0); Allen Test ACCEPTAB; Arterial Blood Gas Oxygen Sat 99.3 mmHG (95.0-98.0); Arterial COHb 0.2 % (0.0-3.0); Arterial Fraction of Oxyhgb 98.9 % (93.0-99.0); Arterial HCO3 24.3 mmol/L (22.0-26.0); Arterial MetHb 0.2 % (0.0-1.5); Arterial pCO2 48.9 mmhg (35-45); Blood Gas IEPAP 22/10; Blood Gas PS 12; MODE MASK - BIPAP; Site Right Radial
[2018-11-26] MEDS: VANCOMYCIN 1 GM (PMX) 250 ML IVPB ×2 (07:30→12:43)
[2018-11-26] MEDS: HYDROmorphONE 2 MG/ML SYG IV ×4 (07:33→21:02)
[2018-11-26] MEDS: INSULIN ASPART [NOVOLOG] 3 ML PEN SC ×4 (09:00→21:00)
[2018-11-26] MEDS: ARTIFICIAL TEARS 15 ML OPH BOTH EYES ×3 (09:00→21:00)
[2018-11-26] MEDS: ALBUMIN HUMAN 25% 100 ML IV (09:29)
[2018-11-26] MEDS: HEPARIN 1000 UNITS/ML 10 ML INJ CATHETER (11:37)
[2018-11-26] MEDS ORDERED: VANCOMYCIN IV PER PHARMACY XX (12:00)
[2018-11-26] MEDS: COLLAGENASE 5 GM (UD JAR) TOP ×2 (12:43→21:01)
[2018-11-26] MEDS: MULTIVIT/CA CARB/B CMPLX/FA TAB PO (12:44)
[2018-11-26] MEDS: ASCORBIC ACID 500 MG TAB PO (12:44)
[2018-11-26] MEDS: LUBIPROSTONE 8 MCG CAPSULE PO ×2 (12:44→21:01)
[2018-11-26] MEDS: HEPARIN 5,000 UNIT/1 ML VIAL SC (12:49)
[2018-11-26] MEDS: MIDODRINE 5 MG TAB PO ×3 (12:50→18:40)
[2018-11-26] MEDS: ONDANSETRON 4 MG INJ IV (13:24)
[2018-11-26] MEDS: DAKINS 0.0125%(1/40) 473 ML SOLUTION TP ×2 (13:25→21:01)
[2018-11-26] MEDS: METOPROLOL 25 MG TAB PO ×2 (14:00→23:03)
[2018-11-26] MEDS: ALBUTEROL/IPRATROPIUM (NEB) 3 ML AMP HHN (14:07)
[2018-11-26] MEDS: CYCLOBENZAPRINE 10 MG TAB PO (15:46)
[2018-11-26] MEDS: PIPER-TAZO 2.25 GM (PMX) 50 ML IVPB ×2 (15:54→22:00)
[2018-11-26] MEDS: (Nursing Note) XX ×2 (18:42→21:01)
[2018-11-26] MEDS: EPOETIN ALFA-EPBX (ESRD) 10,000 UNIT/ML VIAL SC (19:00)
[2018-11-26] MEDS: traZODone 50 MG TAB PO (21:01)
[2018-11-27] MEDS: METHADONE (1 MG/ML 5 ML PO UD SYG) PO ×4 (00:09→17:38)
[2018-11-27] MEDS: METOCLOPRAMIDE 10 MG INJ IV ×4 (00:09→17:21)
[2018-11-27] MEDS: INSULIN ASPART [NOVOLOG] 3 ML PEN SC ×6 (01:00→21:00)
[2018-11-27] MEDS: HYDROmorphONE 2 MG/ML SYG IV ×3 (01:14→13:06)
[2018-11-27] MEDS: ACCU-CHEK XX (01:22)
[2018-11-27] MEDS: CYCLOBENZAPRINE 10 MG TAB PO (03:50)
[2018-11-27 05:06] LABS: ADD MAN DIFF? NO
[2018-11-27 05:12] LABS: BASOPHIL # 0.1 10^3/ul (0.0-0.1); BASOPHILS % 0.9 % (0.0-2.0); EOSINOPHILS # 0.7 10^3/ul (0.0-0.5); EOSINOPHILS % 9.8 % (0.0-7.0); HEMATOCRIT 26.6 % (42.0-52.0); HEMOGLOBIN 7.9 g/dl (14.0-18.0); LYMPHOCYTES % 29.6 % (15.0-51.0); MEAN CORPUSCULAR HGB CONC 29.7 g/dl (32.0-37.0); MEAN CORPUSCULAR VOLUME 94.3 fl (82.0-101.0); MEAN PLATELET VOLUME 8.7 fl (7.4-10.4); MONOCYTE # 0.5 10^3/ul (0.3-0.9); MONOCYTES % 7.7 % (0.0-11.0); NEUTROPHIL # 3.5 10^3/ul (1.6-7.5); NEUTROPHILS % 51.7 % (39.0-77.0); PLATELET COUNT 242 10^3/UL (140-415); RED BLOOD COUNT 2.82 10^6/ul (4.70-6.10)
[2018-11-27 05:12] LABS: WHITE BLOOD COUNT 6.7 10^3/ul (4.8-10.8)
[2018-11-27] MEDS: PIPER-TAZO 2.25 GM (PMX) 50 ML IVPB ×3 (05:27→21:21)
[2018-11-27] MEDS: LEVOTHYROXINE 100 MCG TAB PO (05:27)
[2018-11-27] MEDS: METOPROLOL 25 MG TAB PO ×3 (05:27→21:21)
[2018-11-27 05:31] LABS: INR 0.98; PROTIME 13.1 Sec (11.9-14.9)
[2018-11-27 05:32] LABS: PARTIAL THROMBOPLASTIN TIME 26.6 Sec (23.0-35.0)
[2018-11-27 05:47] LABS: ANION GAP 7 (5-13); BLOOD UREA NITROGEN 18 mg/dl (7-20); CALCIUM 8.1 mg/dl (8.4-10.2); CARBON DIOXIDE 27 mmol/L (21-31); CHLORIDE 106 mmol/L (97-110); CREATININE 2.57 mg/dl (0.61-1.24); Estimated GFR 26 mL/min (>60); GLUCOSE 57 mg/dl (70-220); SODIUM 140 mmol/L (135-144)
[2018-11-27] MEDS: BUMETANIDE 1 MG TAB PO ×2 (05:55→17:22)
[2018-11-27 06:44] LABS: POTASSIUM 4.1 mmol/L (3.5-5.1)
[2018-11-27] MEDS: DEXTROSE 50% 50 ML SYRINGE IV (06:57)
[2018-11-27] MEDS: LUBIPROSTONE 8 MCG CAPSULE PO ×2 (08:14→21:21)
[2018-11-27] MEDS: ASCORBIC ACID 500 MG TAB PO (08:14)
[2018-11-27] MEDS: DAKINS 0.0125%(1/40) 473 ML SOLUTION TP ×2 (08:14→21:19)
[2018-11-27] MEDS: MULTIVIT/CA CARB/B CMPLX/FA TAB PO (08:14)
[2018-11-27] MEDS: COLLAGENASE 5 GM (UD JAR) TOP ×2 (08:14→21:21)
[2018-11-27] MEDS: MIDODRINE 5 MG TAB PO ×3 (08:15→16:21)
[2018-11-27] MEDS: ARTIFICIAL TEARS 15 ML OPH BOTH EYES ×3 (08:27→21:21)
[2018-11-27] MEDS: ONDANSETRON 4 MG INJ IV (08:28)
[2018-11-27] MEDS: (Nursing Note) XX ×2 (09:00→21:19)
[2018-11-27 13:27] LABS: ADD UMIC YES; UR ASCORBIC ACID NEGATIVE (NEGATIVE); UR BACTERIA FEW /HPF (NONE SEEN); UR BILIRUBIN (Dip) NEGATIVE (NEGATIVE); UR BLOOD (Dip) 1+ mg/dL (NEGATIVE); UR CLARITY TURBID (CLEAR); UR COLOR YELLOW (YELLOW); UR GLUCOSE (Dip) 1+ mg/dL (NEGATIVE); UR KETONES (Dip) TRACE mg/dL (NEGATIVE); UR LEUKOCYTE ESTERASE (Dip) TRACE Leu/ul (NEGATIVE); UR MUCUS FEW /HPF (NONE SEEN); UR NITRITE (Dip) NEGATIVE (NEGATIVE); UR NONSQUAMOUS EPITHELIAL CELL 2 /HPF (NONE SEEN); UR RBC 84 /HPF (0-5); UR SQUAMOUS EPITHELIAL CELL FEW /HPF (FEW); UR TOTAL PROTEIN (Dip) 3+ mg/dl (NEGATIVE); UR UROBILINOGEN (Dip) NEGATIVE (NEGATIVE); UR WBC > 182 /HPF (0-5)
[2018-11-27 14:06] LABS: PROCALCITONIN 1.57 ng/mL (0.00-0.10)
[2018-11-27] MEDS: HYDROmorphONE 1 MG/ML SYG IV ×2 (15:20→21:20)
[2018-11-27] MEDS: LIDOCAINE 1% (MPF) 5 ML VIAL (16:54)
[2018-11-27 17:08] LABS: FLD MN% 78.7 %; FLD RBC 1000 /uL; FLD WBC 174 /cmm
[2018-11-27 18:02] LABS: FLUID LD 198 U/L; FLUID TOTAL PROTEIN < 2.0 g/dl; FLUID TYPE PLEURAL FLUID
[2018-11-27 18:47] LABS: FLD TYPE PLEURAL
[2018-11-27 18:48] LABS: FLD CLARITY HAZY; FLD COLOR YELLOW
[2018-11-27 18:49] LABS: FLD PMN% 21.3 %
[2018-11-27] MEDS: traZODone 50 MG TAB PO (21:21)
[2018-11-27] MEDS: ALBUTEROL/IPRATROPIUM (NEB) 3 ML AMP HHN (23:19)
[2018-11-28] MEDS: METOCLOPRAMIDE 10 MG INJ IV ×4 (00:19→17:47)
[2018-11-28] MEDS: METHADONE (1 MG/ML 5 ML PO UD SYG) PO ×5 (00:19→23:22)
[2018-11-28] MEDS: INSULIN ASPART [NOVOLOG] 3 ML PEN SC ×6 (01:00→21:00)
[2018-11-28] MEDS: HYDROmorphONE 1 MG/ML SYG IV ×4 (01:27→15:46)
[2018-11-28] MEDS: ACCU-CHEK XX (01:36)
[2018-11-28] MEDS: PIPER-TAZO 2.25 GM (PMX) 50 ML IVPB ×3 (05:16→21:36)
[2018-11-28] MEDS: BUMETANIDE 1 MG TAB PO ×2 (05:17→17:47)
[2018-11-28] MEDS: LEVOTHYROXINE 100 MCG TAB PO (05:18)
[2018-11-28] MEDS: METOPROLOL 25 MG TAB PO ×4 (05:18→23:33)
[2018-11-28 05:39] LABS: VANCOMYCIN,RANDOM 16.2 ug/ml
[2018-11-28 05:50] LABS: ADD MAN DIFF? NO
[2018-11-28 05:52] LABS: BASOPHIL # 0.1 10^3/ul (0.0-0.1); BASOPHILS % 0.6 % (0.0-2.0); EOSINOPHILS # 0.7 10^3/ul (0.0-0.5); EOSINOPHILS % 8.5 % (0.0-7.0); HEMATOCRIT 26.4 % (42.0-52.0); HEMOGLOBIN 7.8 g/dl (14.0-18.0); LYMPHOCYTES # 2.4 10^3/ul (0.8-2.9); LYMPHOCYTES % 28.4 % (15.0-51.0); MEAN CORPUSCULAR HGB CONC 29.5 g/dl (32.0-37.0); MEAN CORPUSCULAR VOLUME 94.6 fl (82.0-101.0); MEAN PLATELET VOLUME 8.3 fl (7.4-10.4); MONOCYTE # 0.7 10^3/ul (0.3-0.9); MONOCYTES % 8.1 % (0.0-11.0); NEUTROPHIL # 4.6 10^3/ul (1.6-7.5); PLATELET COUNT 251 10^3/UL (140-415); RED BLOOD COUNT 2.79 10^6/ul (4.70-6.10); RED CELL DISTRIBUTION WIDTH 18.7 % (11.5-14.5)
[2018-11-28 05:52] LABS: WHITE BLOOD COUNT 8.5 10^3/ul (4.8-10.8)
[2018-11-28 06:01] LABS: ANION GAP 5 (5-13); BLOOD UREA NITROGEN 21 mg/dl (7-20); CALCIUM 7.6 mg/dl (8.4-10.2); CARBON DIOXIDE 27 mmol/L (21-31); CHLORIDE 106 mmol/L (97-110); CREATININE 3.02 mg/dl (0.61-1.24); Estimated GFR 22 mL/min (>60); GLUCOSE 60 mg/dl (70-220); POTASSIUM 4.6 mmol/L (3.5-5.1); SODIUM 138 mmol/L (135-144)
[2018-11-28] MEDS: (Nursing Note) XX ×3 (09:00→21:37)
[2018-11-28] MEDS: DAKINS 0.0125%(1/40) 473 ML SOLUTION TP ×2 (09:00→21:36)
[2018-11-28] MEDS: MIDODRINE 5 MG TAB PO ×3 (09:00→17:00)
[2018-11-28] MEDS: ARTIFICIAL TEARS 15 ML OPH BOTH EYES ×3 (09:13→21:37)
[2018-11-28] MEDS: ONDANSETRON 4 MG INJ IV (10:05)
[2018-11-28] MEDS: LUBIPROSTONE 8 MCG CAPSULE PO ×2 (12:08→21:36)
[2018-11-28] MEDS: ASCORBIC ACID 500 MG TAB PO (12:09)
[2018-11-28] MEDS: MULTIVIT/CA CARB/B CMPLX/FA TAB PO (12:09)
[2018-11-28] MEDS: COLLAGENASE 5 GM (UD JAR) TOP ×2 (12:11→21:36)
[2018-11-28] MEDS: HEPARIN 1000 UNITS/ML 10 ML INJ CATHETER (12:31)
[2018-11-28] MEDS: CYCLOBENZAPRINE 10 MG TAB PO (13:35)
[2018-11-28] MEDS: SOD CHLORIDE 0.9% 250 ML IV ×2 (14:25→15:32)
[2018-11-28] MEDS: DIGOXIN 500 MCG INJ IV (14:47)
[2018-11-28] MEDS: ALBUTEROL/IPRATROPIUM (NEB) 3 ML AMP HHN ×2 (16:25→23:43)
[2018-11-28] MEDS: EPOETIN ALFA-EPBX (ESRD) 10,000 UNIT/ML VIAL SC (17:00)
[2018-11-28] MEDS ORDERED: VANCOMYCIN 1 GM 250 ML IVPB (17:00)
[2018-11-28] MEDS: HYDROmorphONE 2 MG/ML SYG IV (19:40)
[2018-11-28] MEDS: traZODone 50 MG TAB PO (21:36)
[2018-11-29] MEDS: HYDROmorphONE 2 MG/ML SYG IV ×6 (00:20→23:29)
[2018-11-29] MEDS: INSULIN ASPART [NOVOLOG] 3 ML PEN SC ×6 (01:00→20:29)
[2018-11-29] MEDS: CYCLOBENZAPRINE 10 MG TAB PO ×2 (01:27→01:33)
[2018-11-29] MEDS: METOCLOPRAMIDE 10 MG INJ IV ×4 (01:27→17:29)
[2018-11-29] MEDS: DILTIAZEM 25 MG INJ IV (01:27)
[2018-11-29] MEDS: ACCU-CHEK XX (02:08)
[2018-11-29] MEDS: DIPHENHYDRAMINE 25 MG CAP PO (03:14)
[2018-11-29] MEDS: GUAIFENESIN/DM 5ML CUP PO (03:14)
[2018-11-29 05:25] LABS: ADD MAN DIFF? NO
[2018-11-29 05:36] LABS: BASOPHIL # 0.1 10^3/ul (0.0-0.1); BASOPHILS % 0.8 % (0.0-2.0); EOSINOPHILS # 0.6 10^3/ul (0.0-0.5); EOSINOPHILS % 6.7 % (0.0-7.0); HEMATOCRIT 27.1 % (42.0-52.0); HEMOGLOBIN 8.2 g/dl (14.0-18.0); LYMPHOCYTES # 2.1 10^3/ul (0.8-2.9); LYMPHOCYTES % 25.1 % (15.0-51.0); MEAN CORPUSCULAR HEMOGLOBIN 28.4 pg (29.0-33.0); MEAN CORPUSCULAR HGB CONC 30.3 g/dl (32.0-37.0); MEAN CORPUSCULAR VOLUME 93.8 fl (82.0-101.0); MEAN PLATELET VOLUME 8.4 fl (7.4-10.4); MONOCYTE # 0.7 10^3/ul (0.3-0.9); MONOCYTES % 8.4 % (0.0-11.0); NEUTROPHIL # 4.8 10^3/ul (1.6-7.5); NEUTROPHILS % 58.5 % (39.0-77.0); PLATELET COUNT 249 10^3/UL (140-415); RED BLOOD COUNT 2.89 10^6/ul (4.70-6.10)
[2018-11-29 05:36] LABS: WHITE BLOOD COUNT 8.3 10^3/ul (4.8-10.8)
[2018-11-29] MEDS: METHADONE (1 MG/ML 5 ML PO UD SYG) PO ×3 (06:00→17:30)
[2018-11-29 06:08] LABS: ANION GAP 5 (5-13); BLOOD UREA NITROGEN 17 mg/dl (7-20); CALCIUM 7.4 mg/dl (8.4-10.2); CARBON DIOXIDE 27 mmol/L (21-31); CHLORIDE 104 mmol/L (97-110); CREATININE 2.59 mg/dl (0.61-1.24); Estimated GFR 26 mL/min (>60); GLUCOSE 84 mg/dl (70-220); POTASSIUM 4.1 mmol/L (3.5-5.1); SODIUM 136 mmol/L (135-144)
[2018-11-29] MEDS: LEVOTHYROXINE 100 MCG TAB PO (07:51)
[2018-11-29] MEDS: PIPER-TAZO 2.25 GM (PMX) 50 ML IVPB ×3 (07:51→21:37)
[2018-11-29] MEDS: BUMETANIDE 1 MG TAB PO ×2 (07:52→17:29)
[2018-11-29] MEDS: METOPROLOL 25 MG TAB PO ×2 (07:56→13:01)
[2018-11-29] MEDS: ARTIFICIAL TEARS 15 ML OPH BOTH EYES ×3 (08:33→20:29)
[2018-11-29] MEDS: COLLAGENASE 5 GM (UD JAR) TOP ×2 (08:34→20:29)
[2018-11-29] MEDS: MIDODRINE 5 MG TAB PO ×3 (08:34→17:00)
[2018-11-29] MEDS: DAKINS 0.0125%(1/40) 473 ML SOLUTION TP ×2 (08:34→20:33)
[2018-11-29] MEDS: ASCORBIC ACID 500 MG TAB PO (08:35)
[2018-11-29] MEDS: MULTIVIT/CA CARB/B CMPLX/FA TAB PO (08:35)
[2018-11-29] MEDS: (Nursing Note) XX ×4 (09:00→20:34)
[2018-11-29] MEDS: ONDANSETRON 4 MG INJ IV ×2 (13:00→19:23)
[2018-11-29] MEDS: LUBIPROSTONE 8 MCG CAPSULE PO ×2 (17:29→20:28)
[2018-11-29] MEDS: traZODone 50 MG TAB PO (20:28)
[2018-11-29] MEDS: METOPROLOL 50 MG TAB PO (20:29)
[2018-11-29] MEDS: ALBUTEROL/IPRATROPIUM (NEB) 3 ML AMP HHN (23:10)
[2018-11-30] MEDS: INSULIN ASPART [NOVOLOG] 3 ML PEN SC ×6 (00:42→21:00)
[2018-11-30] MEDS: METOCLOPRAMIDE 10 MG INJ IV ×4 (00:43→17:26)
[2018-11-30] MEDS: METHADONE (1 MG/ML 5 ML PO UD SYG) PO ×4 (00:44→19:05)
[2018-11-30] MEDS: ACCU-CHEK XX (02:00)
[2018-11-30] MEDS: HYDROmorphONE 2 MG/ML SYG IV ×5 (03:40→21:33)
[2018-11-30] MEDS: PIPER-TAZO 2.25 GM (PMX) 50 ML IVPB ×2 (05:49→13:01)
[2018-11-30] MEDS: BUMETANIDE 1 MG TAB PO ×2 (05:50→17:27)
[2018-11-30] MEDS: LEVOTHYROXINE 100 MCG TAB PO (05:50)
[2018-11-30] MEDS: ASPIRIN 325 MG TAB PO (08:46)
[2018-11-30] MEDS: LUBIPROSTONE 8 MCG CAPSULE PO ×2 (08:46→21:26)
[2018-11-30] MEDS: ONDANSETRON 4 MG INJ IV (08:46)
[2018-11-30] MEDS: METOPROLOL 50 MG TAB PO ×2 (08:47→21:27)
[2018-11-30] MEDS: MIDODRINE 5 MG TAB PO ×3 (08:47→17:00)
[2018-11-30] MEDS: COLLAGENASE 5 GM (UD JAR) TOP ×2 (08:48→21:27)
[2018-11-30] MEDS: DAKINS 0.0125%(1/40) 473 ML SOLUTION TP ×2 (08:50→21:28)
[2018-11-30] MEDS: ARTIFICIAL TEARS 15 ML OPH BOTH EYES ×3 (08:51→21:37)
[2018-11-30] MEDS: (Nursing Note) XX ×4 (08:51→21:00)
[2018-11-30] MEDS: ALBUTEROL/IPRATROPIUM (NEB) 3 ML AMP HHN (21:19)
[2018-11-30] MEDS: GUAIFENESIN/DM 5ML CUP PO (21:27)
[2018-11-30] MEDS: traZODone 50 MG TAB PO (21:37)
[2018-12-01] MEDS: METOCLOPRAMIDE 10 MG INJ IV ×3 (00:02→12:52)
[2018-12-01] MEDS: METHADONE (1 MG/ML 5 ML PO UD SYG) PO ×4 (00:03→17:59)
[2018-12-01] MEDS: INSULIN ASPART [NOVOLOG] 3 ML PEN SC ×6 (01:00→21:00)
[2018-12-01] MEDS: HYDROmorphONE 2 MG/ML SYG IV ×6 (01:35→22:49)
[2018-12-01] MEDS: ACCU-CHEK XX (02:00)
[2018-12-01] MEDS: LEVOTHYROXINE 100 MCG TAB PO (05:44)
[2018-12-01] MEDS: BUMETANIDE 1 MG TAB PO ×2 (05:44→17:59)
[2018-12-01 06:26] LABS: WHITE BLOOD COUNT 7.9 10^3/ul (4.8-10.8)
[2018-12-01 06:26] LABS: ADD MAN DIFF? NO; BASOPHIL # 0.1 10^3/ul (0.0-0.1); BASOPHILS % 0.8 % (0.0-2.0); EOSINOPHILS # 0.9 10^3/ul (0.0-0.5); EOSINOPHILS % 11.5 % (0.0-7.0); HEMATOCRIT 27.1 % (42.0-52.0); HEMOGLOBIN 8.1 g/dl (14.0-18.0); LYMPHOCYTES % 25.3 % (15.0-51.0); MEAN CORPUSCULAR HEMOGLOBIN 28.2 pg (29.0-33.0); MEAN CORPUSCULAR HGB CONC 29.9 g/dl (32.0-37.0); MEAN CORPUSCULAR VOLUME 94.4 fl (82.0-101.0); MEAN PLATELET VOLUME 8.8 fl (7.4-10.4); MONOCYTE # 0.5 10^3/ul (0.3-0.9); MONOCYTES % 6.5 % (0.0-11.0); NEUTROPHIL # 4.3 10^3/ul (1.6-7.5); PLATELET COUNT 217 10^3/UL (140-415); RED BLOOD COUNT 2.87 10^6/ul (4.70-6.10); RED CELL DISTRIBUTION WIDTH 19.3 % (11.5-14.5)
[2018-12-01 07:12] LABS: ANION GAP 5 (5-13); BLOOD UREA NITROGEN 21 mg/dl (7-20); CALCIUM 7.4 mg/dl (8.4-10.2); CARBON DIOXIDE 26 mmol/L (21-31); CHLORIDE 106 mmol/L (97-110); CREATININE 3.53 mg/dl (0.61-1.24); Estimated GFR 18 mL/min (>60); GLUCOSE 107 mg/dl (70-220); POTASSIUM 4.1 mmol/L (3.5-5.1); SODIUM 137 mmol/L (135-144)
[2018-12-01] MEDS: ARTIFICIAL TEARS 15 ML OPH BOTH EYES ×3 (08:21→21:19)
[2018-12-01] MEDS: LUBIPROSTONE 8 MCG CAPSULE PO ×2 (08:21→21:19)
[2018-12-01] MEDS: ASPIRIN 325 MG TAB PO (08:22)
[2018-12-01] MEDS: MIDODRINE 5 MG TAB PO ×3 (08:23→17:00)
[2018-12-01] MEDS: METOPROLOL 50 MG TAB PO ×2 (08:23→21:21)
[2018-12-01] MEDS: (Nursing Note) XX ×4 (08:24→21:00)
[2018-12-01] MEDS: COLLAGENASE 5 GM (UD JAR) TOP ×2 (08:24→21:20)
[2018-12-01] MEDS: DAKINS 0.0125%(1/40) 473 ML SOLUTION TP ×2 (08:24→21:21)
[2018-12-01 08:32] LABS: ERYTHROCYTE SEDIMENTATION RATE 12 mm/Hr (0-20)
[2018-12-01] MEDS: ONDANSETRON 4 MG INJ IV (10:05)
[2018-12-01 10:14] LABS: HEPATITIS B SURFACE ANTIGEN NEGATIVE (NEGATIVE)
[2018-12-01] MEDS: ALBUTEROL/IPRATROPIUM (NEB) 3 ML AMP HHN (10:43)
[2018-12-01] MEDS: HEPARIN 1000 UNITS/ML 10 ML INJ CATHETER (11:58)
[2018-12-01] MEDS: EPOETIN ALFA-EPBX (ESRD) 10,000 UNIT/ML VIAL SC (18:01)
[2018-12-01] MEDS: traZODone 50 MG TAB PO (21:20)
[2018-12-02] MEDS: METHADONE (1 MG/ML 5 ML PO UD SYG) PO ×4 (00:17→17:54)
[2018-12-02] MEDS: INSULIN ASPART [NOVOLOG] 3 ML PEN SC ×6 (01:00→21:00)
[2018-12-02] MEDS: ALBUTEROL/IPRATROPIUM (NEB) 3 ML AMP HHN ×2 (01:07→20:01)
[2018-12-02] MEDS: ACCU-CHEK XX (02:00)
[2018-12-02] MEDS: HYDROmorphONE 2 MG/ML SYG IV ×4 (02:56→21:28)
[2018-12-02] MEDS: LEVOTHYROXINE 100 MCG TAB PO (05:46)
[2018-12-02] MEDS: BUMETANIDE 1 MG TAB PO ×2 (05:46→18:11)
[2018-12-02] MEDS: ARTIFICIAL TEARS 15 ML OPH BOTH EYES ×3 (08:50→21:18)
[2018-12-02] MEDS: LUBIPROSTONE 8 MCG CAPSULE PO ×2 (08:52→21:19)
[2018-12-02] MEDS: MIDODRINE 5 MG TAB PO ×3 (08:52→17:00)
[2018-12-02] MEDS: ASPIRIN 325 MG TAB PO (08:52)
[2018-12-02] MEDS: METOPROLOL 50 MG TAB PO ×2 (08:53→21:19)
[2018-12-02] MEDS: DAKINS 0.0125%(1/40) 473 ML SOLUTION TP ×2 (08:54→21:43)
[2018-12-02] MEDS: (Nursing Note) XX ×4 (08:54→21:00)
[2018-12-02] MEDS: COLLAGENASE 5 GM (UD JAR) TOP ×2 (08:54→21:42)
[2018-12-02 16:48] LABS: AADO2 Arterial 481.7 mmHg (7.0-24.0); Allen Test ACCEPTAB; Arterial Blood Gas Oxygen Sat 99.2 mmHG (95.0-98.0); Arterial COHb 0.8 % (0.0-3.0); Arterial Fraction of Oxyhgb 98.4 % (93.0-99.0); Arterial HCO3 26.2 mmol/L (22.0-26.0); Arterial MetHb 0 % (0.0-1.5); Arterial pCO2 56.3 mmhg (35-45); MODE MASK - NRB; Site Right Radial
[2018-12-02 16:49] LABS: ADD MAN DIFF? NO
[2018-12-02 16:52] LABS: BASOPHIL # 0.1 10^3/ul (0.0-0.1); BASOPHILS % 0.5 % (0.0-2.0); EOSINOPHILS # 0.6 10^3/ul (0.0-0.5); EOSINOPHILS % 3.8 % (0.0-7.0); HEMATOCRIT 32.4 % (42.0-52.0); HEMOGLOBIN 9.6 g/dl (14.0-18.0); LYMPHOCYTES # 0.7 10^3/ul (0.8-2.9); MEAN CORPUSCULAR HEMOGLOBIN 28.3 pg (29.0-33.0); MEAN CORPUSCULAR HGB CONC 29.6 g/dl (32.0-37.0); MEAN CORPUSCULAR VOLUME 95.6 fl (82.0-101.0); MEAN PLATELET VOLUME 8.8 fl (7.4-10.4); MONOCYTE # 0.6 10^3/ul (0.3-0.9); MONOCYTES % 3.8 % (0.0-11.0); NEUTROPHIL # 12.5 10^3/ul (1.6-7.5); NEUTROPHILS % 85.1 % (39.0-77.0); PLATELET COUNT 253 10^3/UL (140-415); RED BLOOD COUNT 3.39 10^6/ul (4.70-6.10); RED CELL DISTRIBUTION WIDTH 18.9 % (11.5-14.5)
[2018-12-02 16:52] LABS: WHITE BLOOD COUNT 14.6 10^3/ul (4.8-10.8)
[2018-12-02 17:13] LABS: ALANINE AMINOTRANSFERASE 29 IU/L (13-69); ALBUMIN 2.1 g/dl (3.3-4.9); ALKALINE PHOSPHATASE 125 IU/L (42-121); ANION GAP 6 (5-13); ASPARTATE AMINO TRANSFERASE 23 IU/L (15-46); BLOOD UREA NITROGEN 16 mg/dl (7-20); CALCIUM 7.6 mg/dl (8.4-10.2); CARBON DIOXIDE 27 mmol/L (21-31); CHLORIDE 103 mmol/L (97-110); CREATININE 3.03 mg/dl (0.61-1.24); Estimated GFR 22 mL/min (>60); GLUCOSE 118 mg/dl (70-220); POTASSIUM 4.7 mmol/L (3.5-5.1); SODIUM 136 mmol/L (135-144); TOTAL PROTEIN 5.1 g/dl (6.1-8.1)
[2018-12-02 17:13] LABS: LACTIC ACID 0.6 mmol/L (0.5-2.0)
[2018-12-02 17:50] LABS: PROCALCITONIN 0.72 ng/mL (0.00-0.10)
[2018-12-02] MEDS: PIPER-TAZO 2.25 GM (PMX) 50 ML IVPB ×2 (18:11→21:51)
[2018-12-02] MEDS: FUROSEMIDE 40 MG INJ IV (18:11)
[2018-12-02 20:05] LABS: ADD UMIC YES; UR ASCORBIC ACID NEGATIVE (NEGATIVE); UR BACTERIA MODERATE /HPF (NONE SEEN); UR BILIRUBIN (Dip) NEGATIVE (NEGATIVE); UR BLOOD (Dip) NEGATIVE (NEGATIVE); UR CLARITY TURBID (CLEAR); UR COLOR YELLOW (YELLOW); UR GLUCOSE (Dip) 3+ mg/dL (NEGATIVE); UR KETONES (Dip) TRACE mg/dL (NEGATIVE); UR LEUKOCYTE ESTERASE (Dip) 1+ Leu/ul (NEGATIVE); UR NITRITE (Dip) NEGATIVE (NEGATIVE); UR RBC 81 /HPF (0-5); UR SPECIFIC GRAVITY (Dip) 1.048 (1.003-1.030); UR SQUAMOUS EPITHELIAL CELL FEW /HPF (FEW); UR TOTAL PROTEIN (Dip) 3+ mg/dl (NEGATIVE); UR UROBILINOGEN (Dip) NEGATIVE (NEGATIVE); UR WBC > 182 /HPF (0-5)
[2018-12-02] MEDS: traZODone 50 MG TAB PO (21:19)
[2018-12-03] MEDS: METHADONE (1 MG/ML 5 ML PO UD SYG) PO ×5 (00:04→23:52)
[2018-12-03] MEDS: ACCU-CHEK XX (02:00)
[2018-12-03] MEDS: BUMETANIDE 1 MG TAB PO ×2 (05:33→17:56)
[2018-12-03] MEDS: PIPER-TAZO 2.25 GM (PMX) 50 ML IVPB ×3 (05:33→21:56)
[2018-12-03] MEDS: HYDROmorphONE 2 MG/ML SYG IV ×3 (05:34→16:31)
[2018-12-03] MEDS: LEVOTHYROXINE 100 MCG TAB PO (05:34)
[2018-12-03 07:01] LABS: ADD MAN DIFF? NO
[2018-12-03 07:06] LABS: WHITE BLOOD COUNT 8.4 10^3/ul (4.8-10.8)
[2018-12-03 07:06] LABS: BASOPHIL # 0.1 10^3/ul (0.0-0.1); BASOPHILS % 0.8 % (0.0-2.0); EOSINOPHILS # 0.6 10^3/ul (0.0-0.5); EOSINOPHILS % 6.7 % (0.0-7.0); HEMOGLOBIN 7.9 g/dl (14.0-18.0); LYMPHOCYTES # 1.7 10^3/ul (0.8-2.9); LYMPHOCYTES % 19.9 % (15.0-51.0); MEAN CORPUSCULAR HEMOGLOBIN 27.8 pg (29.0-33.0); MEAN CORPUSCULAR HGB CONC 29.3 g/dl (32.0-37.0); MEAN CORPUSCULAR VOLUME 95.1 fl (82.0-101.0); MEAN PLATELET VOLUME 8.8 fl (7.4-10.4); MONOCYTE # 0.6 10^3/ul (0.3-0.9); MONOCYTES % 7.5 % (0.0-11.0); NEUTROPHIL # 5.3 10^3/ul (1.6-7.5); NUCLEATED RED BLOOD CELLS% 0.2 /100WBC (0.0-0.0); PLATELET COUNT 202 10^3/UL (140-415); RED BLOOD COUNT 2.84 10^6/ul (4.70-6.10); RED CELL DISTRIBUTION WIDTH 18.7 % (11.5-14.5)
[2018-12-03 07:30] LABS: ANION GAP 14 (5-13); BLOOD UREA NITROGEN 16 mg/dl (7-20); CALCIUM 6.7 mg/dl (8.4-10.2); CARBON DIOXIDE 23 mmol/L (21-31); CHLORIDE 108 mmol/L (97-110); CREATININE 2.93 mg/dl (0.61-1.24); Estimated GFR 23 mL/min (>60); GLUCOSE 72 mg/dl (70-220); POTASSIUM 3.6 mmol/L (3.5-5.1); SODIUM 145 mmol/L (135-144)
[2018-12-03] MEDS: INSULIN ASPART [NOVOLOG] 3 ML PEN SC ×4 (07:55→21:00)
[2018-12-03] MEDS: DAKINS 0.0125%(1/40) 473 ML SOLUTION TP ×2 (09:00→21:11)
[2018-12-03] MEDS: MIDODRINE 5 MG TAB PO ×3 (09:00→16:39)
[2018-12-03] MEDS: (Nursing Note) XX ×4 (09:00→21:00)
[2018-12-03] MEDS: COLLAGENASE 5 GM (UD JAR) TOP ×2 (09:29→21:44)
[2018-12-03] MEDS: ARTIFICIAL TEARS 15 ML OPH BOTH EYES ×3 (09:31→21:10)
[2018-12-03] MEDS: HEPARIN 1000 UNITS/ML 10 ML INJ CATHETER (12:48)
[2018-12-03] MEDS: ASPIRIN 325 MG TAB PO (13:49)
[2018-12-03] MEDS: LUBIPROSTONE 8 MCG CAPSULE PO ×2 (13:49→21:09)
[2018-12-03] MEDS: METOPROLOL 50 MG TAB PO ×2 (13:49→21:09)
[2018-12-03] MEDS: EPOETIN ALFA-EPBX (ESRD) 10,000 UNIT/ML VIAL SC (17:57)
[2018-12-03] MEDS: traZODone 50 MG TAB PO (21:09)
[2018-12-04] MEDS: ACCU-CHEK XX (02:00)
[2018-12-04] MEDS: LEVOTHYROXINE 100 MCG TAB PO (05:46)
[2018-12-04] MEDS: BUMETANIDE 1 MG TAB PO ×2 (05:46→17:30)
[2018-12-04] MEDS: METHADONE (1 MG/ML 5 ML PO UD SYG) PO ×3 (05:47→17:30)
[2018-12-04] MEDS: PIPER-TAZO 2.25 GM (PMX) 50 ML IVPB (06:50)
[2018-12-04] MEDS: INSULIN ASPART [NOVOLOG] 3 ML PEN SC ×4 (07:55→21:00)
[2018-12-04] MEDS: (Nursing Note) XX ×4 (07:56→21:00)
[2018-12-04] MEDS: LUBIPROSTONE 8 MCG CAPSULE PO ×3 (08:17→21:00)
[2018-12-04] MEDS: ASPIRIN 325 MG TAB PO ×2 (08:17→08:33)
[2018-12-04] MEDS: MIDODRINE 5 MG TAB PO ×3 (08:17→17:00)
[2018-12-04] MEDS: COLLAGENASE 5 GM (UD JAR) TOP ×2 (08:18→21:23)
[2018-12-04] MEDS: ARTIFICIAL TEARS 15 ML OPH BOTH EYES ×3 (08:18→21:16)
[2018-12-04] MEDS: METOPROLOL 50 MG TAB PO ×3 (08:18→21:00)
[2018-12-04] MEDS: DAKINS 0.0125%(1/40) 473 ML SOLUTION TP ×2 (08:19→21:16)
[2018-12-04 08:21] LABS: ADD MAN DIFF? NO
[2018-12-04] MEDS: DEXTROSE 50% 50 ML SYRINGE IV (08:21)
[2018-12-04 08:26] LABS: WHITE BLOOD COUNT 17.5 10^3/ul (4.8-10.8)
[2018-12-04 08:26] LABS: BASOPHIL # 0.1 10^3/ul (0.0-0.1); BASOPHILS % 0.4 % (0.0-2.0); EOSINOPHILS % 0.1 % (0.0-7.0); HEMATOCRIT 31.5 % (42.0-52.0); HEMOGLOBIN 9.4 g/dl (14.0-18.0); LYMPHOCYTES # 0.9 10^3/ul (0.8-2.9); LYMPHOCYTES % 5.3 % (15.0-51.0); MEAN CORPUSCULAR HEMOGLOBIN 28.2 pg (29.0-33.0); MEAN CORPUSCULAR HGB CONC 29.8 g/dl (32.0-37.0); MEAN CORPUSCULAR VOLUME 94.6 fl (82.0-101.0); MONOCYTE # 0.7 10^3/ul (0.3-0.9); MONOCYTES % 4.2 % (0.0-11.0); NEUTROPHIL # 15.6 10^3/ul (1.6-7.5); NEUTROPHILS % 89.1 % (39.0-77.0); NUCLEATED RED BLOOD CELLS% 0.1 /100WBC (0.0-0.0); PLATELET COUNT 224 10^3/UL (140-415); RED BLOOD COUNT 3.33 10^6/ul (4.70-6.10); RED CELL DISTRIBUTION WIDTH 18.7 % (11.5-14.5)
[2018-12-04 08:51] LABS: ANION GAP 8 (5-13); BLOOD UREA NITROGEN 16 mg/dl (7-20); CALCIUM 8.3 mg/dl (8.4-10.2); CARBON DIOXIDE 25 mmol/L (21-31); CHLORIDE 106 mmol/L (97-110); CREATININE 3.12 mg/dl (0.61-1.24); Estimated GFR 21 mL/min (>60); GLUCOSE 64 mg/dl (70-220); MAGNESIUM 1.9 mg/dl (1.7-2.5); POTASSIUM 4.4 mmol/L (3.5-5.1); SODIUM 139 mmol/L (135-144)
[2018-12-04] MEDS: LIDOCAINE 1% (MDV) 20 ML INJ (15:17)
[2018-12-04] MEDS ORDERED: VANCOMYCIN IV PER PHARMACY XX (15:30)
[2018-12-04] MEDS: VANCOMYCIN HCL 1.5 GM in SOD CHLORIDE 0.9% 250 ML IVPB (17:59)
[2018-12-04] MEDS: HYDROmorphONE 2 MG/ML SYG IV ×2 (18:05→22:02)
[2018-12-04] MEDS: TAZO IVPB ×2 (18:35→23:30)
[2018-12-04] MEDS: SOD CHLORIDE 0.9% IVPB ×2 (18:35→23:30)
[2018-12-04] MEDS: PIPERACILLIN IVPB ×2 (18:35→23:30)
[2018-12-04] MEDS: traZODone 50 MG TAB PO (21:00)
[2018-12-04] MEDS ORDERED: PIPERACILLIN IVPB (22:00)
[2018-12-04] MEDS ORDERED: TAZO IVPB (22:00)
[2018-12-04] MEDS ORDERED: SOD CHLORIDE 0.9% IVPB (22:00)
[2018-12-05] MEDS: METHADONE (1 MG/ML 5 ML PO UD SYG) PO ×4 (01:22→17:55)
[2018-12-05] MEDS: ACCU-CHEK XX (02:00)
[2018-12-05] MEDS: PIPERACILLIN IVPB (06:00)
[2018-12-05] MEDS: LEVOTHYROXINE 100 MCG TAB PO (06:00)
[2018-12-05] MEDS: TAZO IVPB (06:00)
[2018-12-05] MEDS: SOD CHLORIDE 0.9% IVPB (06:00)
[2018-12-05] MEDS: BUMETANIDE 1 MG TAB PO ×3 (06:00→17:55)
[2018-12-05 07:16] LABS: ADD MAN DIFF? NO
[2018-12-05 07:29] LABS: BASOPHILS % 0.2 % (0.0-2.0); EOSINOPHILS % 0.1 % (0.0-7.0); HEMOGLOBIN 8.8 g/dl (14.0-18.0); LYMPHOCYTES # 0.6 10^3/ul (0.8-2.9); LYMPHOCYTES % 3.8 % (15.0-51.0); MEAN CORPUSCULAR HGB CONC 29.3 g/dl (32.0-37.0); MEAN CORPUSCULAR VOLUME 95.5 fl (82.0-101.0); MEAN PLATELET VOLUME 9.2 fl (7.4-10.4); MONOCYTE # 0.8 10^3/ul (0.3-0.9); MONOCYTES % 4.5 % (0.0-11.0); NEUTROPHIL # 15.1 10^3/ul (1.6-7.5); NEUTROPHILS % 90.6 % (39.0-77.0); NUCLEATED RED BLOOD CELLS # 0.1 10^3/ul (0.0-0.0); NUCLEATED RED BLOOD CELLS% 0.4 /100WBC (0.0-0.0); PLATELET COUNT 198 10^3/UL (140-415); RED BLOOD COUNT 3.14 10^6/ul (4.70-6.10); RED CELL DISTRIBUTION WIDTH 18.9 % (11.5-14.5)
[2018-12-05 07:29] LABS: WHITE BLOOD COUNT 16.6 10^3/ul (4.8-10.8)
[2018-12-05 07:46] LABS: ANION GAP 9 (5-13); BLOOD UREA NITROGEN 20 mg/dl (7-20); CARBON DIOXIDE 22 mmol/L (21-31); CHLORIDE 107 mmol/L (97-110); Estimated GFR 18 mL/min (>60); GLUCOSE 93 mg/dl (70-220); POTASSIUM 4.6 mmol/L (3.5-5.1); SODIUM 138 mmol/L (135-144)
[2018-12-05] MEDS: INSULIN ASPART [NOVOLOG] 3 ML PEN SC ×4 (07:55→21:00)
[2018-12-05 08:49] LABS: PROCALCITONIN 1.43 ng/mL (0.00-0.10)
[2018-12-05] MEDS: (Nursing Note) XX ×2 (09:00)
[2018-12-05] MEDS: MIDODRINE 5 MG TAB PO ×3 (09:00→17:00)
[2018-12-05] MEDS: METOPROLOL 50 MG TAB PO ×2 (09:00→21:00)
[2018-12-05] MEDS: ASPIRIN 325 MG TAB PO (09:22)
[2018-12-05] MEDS: LUBIPROSTONE 8 MCG CAPSULE PO ×2 (09:22→21:00)
[2018-12-05] MEDS: COLLAGENASE 5 GM (UD JAR) TOP ×2 (09:22→21:27)
[2018-12-05] MEDS: DAKINS 0.0125%(1/40) 473 ML SOLUTION TP ×2 (09:25→21:27)
[2018-12-05] MEDS: ARTIFICIAL TEARS 15 ML OPH BOTH EYES ×3 (09:25→21:24)
[2018-12-05] MEDS: ALBUMIN HUMAN 25% 100 ML IV (12:20)
[2018-12-05] MEDS: HEPARIN 1000 UNITS/ML 10 ML INJ CATHETER (15:42)
[2018-12-05] MEDS: PIPER-TAZO 2.25 GM/NS 50 ML IVPB ×2 (17:43→23:31)
[2018-12-05] MEDS: EPOETIN ALFA-EPBX (ESRD) 10,000 UNIT/ML VIAL SC (17:45)
[2018-12-05 20:35] LABS: AADO2 Arterial 128.8 mmHg (7.0-24.0); Allen Test ACCEPTAB; Arterial Base Excess -2.7 mmol/L (-3.0-3); Arterial Blood Gas Oxygen Sat 97.5 mmHG (95.0-98.0); Arterial COHb 0.7 % (0.0-3.0); Arterial Fraction of Oxyhgb 96.8 % (93.0-99.0); Arterial HCO3 26.6 mmol/L (22.0-26.0); Arterial MetHb 0 % (0.0-1.5); Arterial pCO2 73.7 mmhg (35-45); Blood Gas IEPAP 22/10; Blood Gas PS 12; MODE MASK - BIPAP; Site Left Radial
[2018-12-05] MEDS: traZODone 50 MG TAB PO (21:00)
[2018-12-05] MEDS: LINEZOLID 600 MG/300 ML (PMX) 300 ML IVPB (21:22)
[2018-12-06] MEDS: HYDROmorphONE 2 MG/ML SYG IV (00:16)
[2018-12-06] MEDS: ACCU-CHEK XX (01:50)
[2018-12-06] MEDS ORDERED: TAZO IVPB (06:00)
[2018-12-06] MEDS: LEVOTHYROXINE 100 MCG TAB PO (06:00)
[2018-12-06] MEDS ORDERED: SOD CHLORIDE 0.9% IVPB (06:00)
[2018-12-06] MEDS ORDERED: PIPERACILLIN IVPB (06:00)
[2018-12-06] MEDS: BUMETANIDE 1 MG TAB PO ×2 (06:00→18:00)
[2018-12-06] MEDS: METHADONE (1 MG/ML 5 ML PO UD SYG) PO ×4 (06:00→18:00)
[2018-12-06] MEDS: PIPER-TAZO 2.25 GM/NS 50 ML IVPB ×3 (06:02→23:23)
[2018-12-06] MEDS: INSULIN ASPART [NOVOLOG] 3 ML PEN SC ×4 (07:55→23:47)
[2018-12-06] MEDS: COLLAGENASE 5 GM (UD JAR) TOP ×2 (08:19→23:31)
[2018-12-06] MEDS: ARTIFICIAL TEARS 15 ML OPH BOTH EYES ×2 (08:20→12:46)
[2018-12-06] MEDS: LUBIPROSTONE 8 MCG CAPSULE PO ×2 (08:20→23:26)
[2018-12-06] MEDS: ASPIRIN 325 MG TAB PO (08:21)
[2018-12-06] MEDS: MIDODRINE 5 MG TAB PO ×3 (08:21→17:00)
[2018-12-06] MEDS: METOPROLOL 50 MG TAB PO ×2 (08:21→23:24)
[2018-12-06] MEDS: DAKINS 0.0125%(1/40) 473 ML SOLUTION TP (08:22)
[2018-12-06] MEDS: LINEZOLID 600 MG/300 ML (PMX) 300 ML IVPB ×2 (09:08→23:23)
[2018-12-06] MEDS: DILTIAZEM 25 MG INJ IV (16:36)
[2018-12-06] MEDS: HEPARIN 1000 UNITS/ML 10 ML INJ CATHETER (17:44)
[2018-12-06 18:02] LABS: AADO2 Arterial 95.8 mmHg (7.0-24.0); Allen Test ACCEPTAB; Arterial Base Excess 1.5 mmol/L (-3.0-3); Arterial Blood Gas Oxygen Sat 96.3 mmHG (95.0-98.0); Arterial COHb 0.6 % (0.0-3.0); Arterial Fraction of Oxyhgb 95.4 % (93.0-99.0); Arterial HCO3 28.6 mmol/L (22.0-26.0); Arterial MetHb 0.3 % (0.0-1.5); Arterial pCO2 58.5 mmhg (35-45); Blood Gas IEPAP 22/10; MODE MASK - BIPAP; Site Right Radial
[2018-12-06] MEDS: traZODone 50 MG TAB PO (23:24)
[2018-12-07] MEDS: METHADONE (1 MG/ML 5 ML PO UD SYG) PO ×4 (00:31→17:48)
[2018-12-07] MEDS: DAKINS 0.0125%(1/40) 473 ML SOLUTION TP ×3 (00:40→20:55)
[2018-12-07] MEDS: ARTIFICIAL TEARS 15 ML OPH BOTH EYES ×4 (00:41→20:52)
[2018-12-07] MEDS: ACCU-CHEK XX (02:00)
[2018-12-07 05:16] LABS: AADO2 Arterial 48.2 mmHg (7.0-24.0); Allen Test ACCEPTAB; Arterial Base Excess 0.8 mmol/L (-3.0-3); Arterial Blood Gas Oxygen Sat 98.6 mmHG (95.0-98.0); Arterial Fraction of Oxyhgb 97.3 % (93.0-99.0); Arterial HCO3 27.5 mmol/L (22.0-26.0); Arterial MetHb 0.3 % (0.0-1.5); Arterial pCO2 55.6 mmhg (35-45); Blood Gas IEPAP 22/10; Blood Gas PS 12; MODE MASK - BIPAP; Site Left Radial
[2018-12-07 05:38] LABS: ADD MAN DIFF? NO
[2018-12-07 05:49] LABS: WHITE BLOOD COUNT 9.1 10^3/ul (4.8-10.8)
[2018-12-07 05:49] LABS: BASOPHILS % 0.3 % (0.0-2.0); EOSINOPHILS % 0.3 % (0.0-7.0); HEMATOCRIT 27.2 % (42.0-52.0); HEMOGLOBIN 7.9 g/dl (14.0-18.0); LYMPHOCYTES # 1.2 10^3/ul (0.8-2.9); MEAN CORPUSCULAR HEMOGLOBIN 27.5 pg (29.0-33.0); MEAN CORPUSCULAR VOLUME 94.8 fl (82.0-101.0); MEAN PLATELET VOLUME 9.6 fl (7.4-10.4); MONOCYTE # 0.4 10^3/ul (0.3-0.9); MONOCYTES % 4.4 % (0.0-11.0); NEUTROPHIL # 7.2 10^3/ul (1.6-7.5); NEUTROPHILS % 79.9 % (39.0-77.0); NUCLEATED RED BLOOD CELLS # 0.1 10^3/ul (0.0-0.0); NUCLEATED RED BLOOD CELLS% 0.6 /100WBC (0.0-0.0); PLATELET COUNT 124 10^3/UL (140-415); RED BLOOD COUNT 2.87 10^6/ul (4.70-6.10); RED CELL DISTRIBUTION WIDTH 19.1 % (11.5-14.5)
[2018-12-07] MEDS: BUMETANIDE 1 MG TAB PO ×2 (05:58→17:48)
[2018-12-07] MEDS: LEVOTHYROXINE 100 MCG TAB PO (05:58)
[2018-12-07] MEDS: PIPER-TAZO 2.25 GM/NS 50 ML IVPB ×3 (05:58→21:57)
[2018-12-07 06:09] LABS: LACTIC ACID 0.8 mmol/L (0.5-2.0)
[2018-12-07 06:14] LABS: PHOSPHORUS 3.8 mg/dl (2.5-4.9)
[2018-12-07 06:35] LABS: ANION GAP 5 (5-13); BLOOD UREA NITROGEN 18 mg/dl (7-20); CALCIUM 7.9 mg/dl (8.4-10.2); CARBON DIOXIDE 27 mmol/L (21-31); CHLORIDE 107 mmol/L (97-110); CREATININE 2.58 mg/dl (0.61-1.24); Estimated GFR 26 mL/min (>60); GLUCOSE 105 mg/dl (70-220); SODIUM 139 mmol/L (135-144)
[2018-12-07] MEDS: INSULIN ASPART [NOVOLOG] 3 ML PEN SC ×4 (07:35→20:54)
[2018-12-07] MEDS: MIDODRINE 5 MG TAB PO ×3 (09:00→17:00)
[2018-12-07] MEDS: LINEZOLID 600 MG/300 ML (PMX) 300 ML IVPB (10:12)
[2018-12-07] MEDS: ASPIRIN 325 MG TAB PO (10:13)
[2018-12-07] MEDS: COLLAGENASE 5 GM (UD JAR) TOP ×2 (10:13→20:55)
[2018-12-07] MEDS: hydrALAzine 20 MG INJ IV (10:15)
[2018-12-07] MEDS: HYDROmorphONE 2 MG/ML SYG IV (12:05)
[2018-12-07] MEDS: LUBIPROSTONE 8 MCG CAPSULE PO ×2 (12:06→20:53)
[2018-12-07] MEDS: CLONIDINE 0.1 MG/24 HR PATCH TRANSDERM (12:25)
[2018-12-07] MEDS: METOPROLOL 25 MG TAB PO (20:54)
[2018-12-07] MEDS: traZODone 50 MG TAB PO (20:57)
[2018-12-07] MEDS ORDERED: METOPROLOL 50 MG TAB PO (21:00)
[2018-12-08] MEDS: METHADONE (1 MG/ML 5 ML PO UD SYG) PO ×5 (01:23→23:47)
[2018-12-08] MEDS: ACCU-CHEK XX (01:27)
[2018-12-08 05:29] LABS: AADO2 Arterial 89.5 mmHg (7.0-24.0); Allen Test ACCEPTAB; Arterial Base Excess 0.9 mmol/L (-3.0-3); Arterial Blood Gas Oxygen Sat 96.9 mmHG (95.0-98.0); Arterial COHb 0.7 % (0.0-3.0); Arterial Fraction of Oxyhgb 95.9 % (93.0-99.0); Arterial HCO3 28.2 mmol/L (22.0-26.0); Arterial MetHb 0.3 % (0.0-1.5); MODE NASAL CANNULA; Site Right Radial
[2018-12-08] MEDS: PIPER-TAZO 2.25 GM/NS 50 ML IVPB ×3 (05:40→21:22)
[2018-12-08] MEDS: BUMETANIDE 1 MG TAB PO ×2 (05:42→17:53)
[2018-12-08] MEDS: LEVOTHYROXINE 100 MCG TAB PO (05:42)
[2018-12-08 06:02] LABS: ABNORMAL IP MESSAGE 1; HEMATOCRIT 27.8 % (42.0-52.0); HEMOGLOBIN 8.2 g/dl (14.0-18.0); MEAN CORPUSCULAR HEMOGLOBIN 28.2 pg (29.0-33.0); MEAN CORPUSCULAR HGB CONC 29.5 g/dl (32.0-37.0); MEAN CORPUSCULAR VOLUME 95.5 fl (82.0-101.0); MEAN PLATELET VOLUME 9.3 fl (7.4-10.4); NUCLEATED RED BLOOD CELLS% 1.3 /100WBC (0.0-0.0); PLATELET COUNT 103 10^3/UL (140-415); POSITIVE DIFF @See below; RED BLOOD COUNT 2.91 10^6/ul (4.70-6.10); RED CELL DISTRIBUTION WIDTH 18.8 % (11.5-14.5)
[2018-12-08 06:02] LABS: WHITE BLOOD COUNT 6.3 10^3/ul (4.8-10.8)
[2018-12-08 06:11] LABS: ANION GAP 3 (5-13); BLOOD UREA NITROGEN 21 mg/dl (7-20); CALCIUM 7.9 mg/dl (8.4-10.2); CARBON DIOXIDE 29 mmol/L (21-31); CHLORIDE 106 mmol/L (97-110); CREATININE 2.97 mg/dl (0.61-1.24); Estimated GFR 22 mL/min (>60); GLUCOSE 66 mg/dl (70-220); POTASSIUM 4.5 mmol/L (3.5-5.1); SODIUM 138 mmol/L (135-144)
[2018-12-08 06:25] LABS: LACTIC ACID 0.9 mmol/L (0.5-2.0)
[2018-12-08 06:36] LABS: PROCALCITONIN 0.99 ng/mL (0.00-0.10)
[2018-12-08 07:02] LABS: ADD MAN DIFF? YES
[2018-12-08] MEDS: INSULIN ASPART [NOVOLOG] 3 ML PEN SC ×4 (07:35→21:00)
[2018-12-08] MEDS: MIDODRINE 5 MG TAB PO ×3 (09:00→16:11)
[2018-12-08] MEDS: DAKINS 0.0125%(1/40) 473 ML SOLUTION TP ×2 (09:00→21:22)
[2018-12-08] MEDS: ASPIRIN 325 MG TAB PO (09:00)
[2018-12-08] MEDS: METOPROLOL 25 MG TAB PO ×2 (09:00→21:24)
[2018-12-08] MEDS: ARTIFICIAL TEARS 15 ML OPH BOTH EYES ×3 (09:00→21:21)
[2018-12-08] MEDS: LUBIPROSTONE 8 MCG CAPSULE PO ×2 (09:00→21:23)
[2018-12-08 09:41] LABS: ANISOCYTOSIS 2+ (0-0); BAND NEUTROPHILS #M 1.1 10^3/ul (0.0-0.6); BAND NEUTROPHILS % (M) 18 % (0-4); BASOPHIL #M 0.1 10^3/ul (0.0-0.0); BASOPHILS % (M) 2 % (0-2); BURR CELLS 1+ (0-0); EOSINOPHILS % (M) 3 % (0-7); LYMPHOCYTES #M 1.6 10^3/ul (0.8-2.9); LYMPHOCYTES % (M) 26 % (15-51); MICROCYTOSIS 2+ (0-0); MONOCYTE #M 0.2 10^3/ul (0.3-0.9); MONOCYTES % (M) 4 % (0-11); MYELOCYTES #M 0.1 10^3/ul (0.0-0.0); MYELOCYTES % (M) 2 % (0-0); PLATELET ESTIMATE DECREASED; POIKILOCYTOSIS 1+ (0-0); POLYCHROMASIA 3+ (0-0); SEG NEUT #M 2.9 10^3/ul (1.6-7.5); SEGMENTED NEUTROPHILS (M) % 45 % (39-77); SMUDGE%M 11 % (0-0)
[2018-12-08] MEDS: HEPARIN 1000 UNITS/ML 10 ML INJ CATHETER (11:52)
[2018-12-08] MEDS: COLLAGENASE 5 GM (UD JAR) TOP ×2 (13:33→21:21)
[2018-12-08] MEDS: HYDROmorphONE 2 MG/ML SYG IV (18:07)
[2018-12-08] MEDS: traZODone 50 MG TAB PO (21:23)
[2018-12-08] MEDS: hydrALAzine 20 MG INJ IV (23:46)
[2018-12-08] MEDS: EPOETIN ALFA-EPBX (ESRD) 10,000 UNIT/ML VIAL SC (23:50)
[2018-12-09] MEDS: ACCU-CHEK XX (01:30)
[2018-12-09] MEDS: HYDROmorphONE 2 MG/ML SYG IV ×2 (02:35→12:25)
[2018-12-09] MEDS: BUMETANIDE 1 MG TAB PO ×2 (05:48→17:30)
[2018-12-09] MEDS: PIPER-TAZO 2.25 GM/NS 50 ML IVPB ×3 (05:48→21:52)
[2018-12-09] MEDS: LEVOTHYROXINE 100 MCG TAB PO (05:48)
[2018-12-09] MEDS: METHADONE (1 MG/ML 5 ML PO UD SYG) PO ×3 (05:49→17:30)
[2018-12-09] MEDS: INSULIN ASPART [NOVOLOG] 3 ML PEN SC ×4 (07:35→21:00)
[2018-12-09 07:50] LABS: ADD MAN DIFF? NO
[2018-12-09 07:56] LABS: WHITE BLOOD COUNT 7.5 10^3/ul (4.8-10.8)
[2018-12-09 07:56] LABS: EOSINOPHILS % 2.4 % (0.0-7.0); HEMATOCRIT 29.2 % (42.0-52.0); HEMOGLOBIN 8.4 g/dl (14.0-18.0); LYMPHOCYTES % 20.9 % (15.0-51.0); MEAN CORPUSCULAR HEMOGLOBIN 27.6 pg (29.0-33.0); MEAN CORPUSCULAR HGB CONC 28.8 g/dl (32.0-37.0); MEAN CORPUSCULAR VOLUME 96.1 fl (82.0-101.0); MONOCYTES % 6.3 % (0.0-11.0); NEUTROPHILS % 63.2 % (39.0-77.0); PLATELET COUNT 83 10^3/UL (140-415); RED BLOOD COUNT 3.04 10^6/ul (4.70-6.10)
[2018-12-09 07:57] LABS: ABNORMAL IP MESSAGE 1; BASOPHIL # 0.1 10^3/ul (0.0-0.1); BASOPHILS % 0.9 % (0.0-2.0); EOSINOPHILS # 0.2 10^3/ul (0.0-0.5); LYMPHOCYTES # 1.6 10^3/ul (0.8-2.9); MONOCYTE # 0.5 10^3/ul (0.3-0.9); NEUTROPHIL # 4.7 10^3/ul (1.6-7.5); NUCLEATED RED BLOOD CELLS # 0.1 10^3/ul (0.0-0.0); NUCLEATED RED BLOOD CELLS% 1.1 /100WBC (0.0-0.0); POSITIVE DIFF @See below
[2018-12-09 08:15] LABS: ANION GAP 6 (5-13); BLOOD UREA NITROGEN 17 mg/dl (7-20); CALCIUM 7.8 mg/dl (8.4-10.2); CARBON DIOXIDE 28 mmol/L (21-31); CHLORIDE 105 mmol/L (97-110); CREATININE 2.38 mg/dl (0.61-1.24); Estimated GFR 29 mL/min (>60); GLUCOSE 65 mg/dl (70-220); POTASSIUM 3.8 mmol/L (3.5-5.1); SODIUM 139 mmol/L (135-144)
[2018-12-09 08:21] LABS: AADO2 Arterial 67.9 mmHg (7.0-24.0); Allen Test ACCEPTAB; Arterial Base Excess 0.3 mmol/L (-3.0-3); Arterial Blood Gas Oxygen Sat 97.7 mmHG (95.0-98.0); Arterial Fraction of Oxyhgb 96.4 % (93.0-99.0); Arterial HCO3 28.1 mmol/L (22.0-26.0); Arterial MetHb 0.3 % (0.0-1.5); Arterial pCO2 64.3 mmhg (35-45); MODE NASAL CANNULA; Site Right Radial
[2018-12-09] MEDS: ARTIFICIAL TEARS 15 ML OPH BOTH EYES ×3 (08:46→21:52)
[2018-12-09] MEDS: COLLAGENASE 5 GM (UD JAR) TOP ×2 (08:46→21:51)
[2018-12-09] MEDS: GLUCOSE GEL 15 GRAM TUBE BUCCAL (08:47)
[2018-12-09] MEDS: METOPROLOL 25 MG TAB PO ×2 (08:47→21:47)
[2018-12-09] MEDS: MIDODRINE 5 MG TAB PO ×2 (08:47→11:17)
[2018-12-09] MEDS: DAKINS 0.0125%(1/40) 473 ML SOLUTION TP ×2 (08:48→21:53)
[2018-12-09] MEDS: LUBIPROSTONE 8 MCG CAPSULE PO ×2 (08:48→21:48)
[2018-12-09] MEDS: ASPIRIN 325 MG TAB PO (08:48)
[2018-12-09 10:08] LABS: ANISOCYTOSIS 2+ (0-0); BAND NEUTROPHILS #M 0.3 10^3/ul (0.0-0.6); BAND NEUTROPHILS % (M) 5 % (0-4); BURR CELLS 1+ (0-0); EOSINOPHILS % (M) 3 % (0-7); ERYTHROBLAST% (NRBC) (M) 5 % (0-0); HYPOCHROMASIA 1+ (0-0); LYMPHOCYTES #M 1.9 10^3/ul (0.8-2.9); LYMPHOCYTES % (M) 26 % (15-51); MICROCYTOSIS 1+ (0-0); MONOCYTE #M 0.3 10^3/ul (0.3-0.9); MONOCYTES % (M) 5 % (0-11); PLATELET ESTIMATE DECREASED; POIKILOCYTOSIS 1+ (0-0); POLYCHROMASIA 1+ (0-0); SEG NEUT #M 4.6 10^3/ul (1.6-7.5); SEGMENTED NEUTROPHILS (M) % 61 % (39-77); SMUDGE%M 21 % (0-0)
[2018-12-09] MEDS: traZODone 50 MG TAB PO (21:00)
[2018-12-09] MEDS: DEXTROSE 5%-0.45% NACL 1,000 ML IV (21:56)
[2018-12-09] MEDS: OXYMETAZOLINE 0.05% 15 ML NAS SPRAY NASAL (21:56)
[2018-12-09 22:01] LABS: TYPE AND SCREEN 1
[2018-12-10] MEDS ORDERED: NORepinephrine 8MG/250 ML (PMX 250 ML (00:17)
[2018-12-10] MEDS ORDERED: PROPOFOL 100 ML IV (00:30)
[2018-12-10] MEDS: SOD CHLORIDE 0.9% 500 ML IV (00:51)
[2018-12-10] MEDS: PROPOFOL 100 ML IV ×4 (00:51→20:54)
[2018-12-10] MEDS: NORepinephrine 8MG/250 ML (PMX 250 ML IV (00:54)
[2018-12-10] MEDS: METHADONE (1 MG/ML 5 ML PO UD SYG) PO (01:02)
[2018-12-10] MEDS: ACCU-CHEK XX (01:20)
[2018-12-10] MEDS ORDERED: CYCLOBENZAPRINE 10 MG TAB NGT (04:30)
[2018-12-10 04:37] LABS: AADO2 Arterial 453.3 mmHg (7.0-24.0); AADO2 Arterial 528.8 mmHg (7.0-24.0); AADO2 Arterial 576.6 mmHg (7.0-24.0); Allen Test ACCEPTAB; Arterial Base Excess -2.2 mmol/L (-3.0-3); Arterial Base Excess 0.6 mmol/L (-3.0-3); Arterial Blood Gas Oxygen Sat 89.6 mmHG (95.0-98.0); Arterial Blood Gas Oxygen Sat 97.5 mmHG (95.0-98.0); Arterial Blood Gas Oxygen Sat 98.5 mmHG (95.0-98.0); Arterial COHb 0.1 % (0.0-3.0); Arterial COHb 0.4 % (0.0-3.0); Arterial COHb 0.5 % (0.0-3.0); Arterial Fraction of Oxyhgb 96.7 % (93.0-99.0); Arterial Fraction of Oxyhgb 98.4 % (93.0-99.0); Arterial HCO3 27.3 mmol/L (22.0-26.0); Arterial HCO3 29.2 mmol/L (22.0-26.0); Arterial HCO3 29.3 mmol/L (22.0-26.0); Arterial MetHb 0 % (0.0-1.5); Arterial MetHb 0.3 % (0.0-1.5); Arterial pCO2 67.1 mmhg (35-45); Arterial pCO2 71.9 mmhg (35-45); Arterial pCO2 97.8 mmhg (35-45); MODE MASK - NRB; Site Right Radial
[2018-12-10] MEDS: INSULIN ASPART [NOVOLOG] 3 ML PEN SC ×5 (05:00→21:00)
[2018-12-10 05:11] LABS: ADD MAN DIFF? NO
[2018-12-10 05:20] LABS: ABNORMAL IP MESSAGE 1; BASOPHILS % 0.3 % (0.0-2.0); EOSINOPHILS # 0.2 10^3/ul (0.0-0.5); EOSINOPHILS % 1.9 % (0.0-7.0); HEMATOCRIT 23.2 % (42.0-52.0); LYMPHOCYTES # 2.3 10^3/ul (0.8-2.9); LYMPHOCYTES % 29.1 % (15.0-51.0); MEAN CORPUSCULAR HEMOGLOBIN 27.2 pg (29.0-33.0); MEAN CORPUSCULAR HGB CONC 29.3 g/dl (32.0-37.0); MEAN CORPUSCULAR VOLUME 92.8 fl (82.0-101.0); MEAN PLATELET VOLUME 9.9 fl (7.4-10.4); MONOCYTE # 0.5 10^3/ul (0.3-0.9); NEUTROPHIL # 4.4 10^3/ul (1.6-7.5); NEUTROPHILS % 57.2 % (39.0-77.0); NUCLEATED RED BLOOD CELLS # 0.1 10^3/ul (0.0-0.0); NUCLEATED RED BLOOD CELLS% 0.9 /100WBC (0.0-0.0); POSITIVE DIFF @See below; RED CELL DISTRIBUTION WIDTH 18.8 % (11.5-14.5)
[2018-12-10 05:20] LABS: WHITE BLOOD COUNT 7.7 10^3/ul (4.8-10.8)
[2018-12-10 05:47] LABS: ANION GAP 7 (5-13); BLOOD UREA NITROGEN 23 mg/dl (7-20); CALCIUM 7.6 mg/dl (8.4-10.2); CARBON DIOXIDE 27 mmol/L (21-31); CHLORIDE 105 mmol/L (97-110); CREATININE 2.76 mg/dl (0.61-1.24); Estimated GFR 24 mL/min (>60); GLUCOSE 69 mg/dl (70-220); POTASSIUM 3.7 mmol/L (3.5-5.1); SODIUM 139 mmol/L (135-144)
[2018-12-10] MEDS: PIPER-TAZO 2.25 GM/NS 50 ML IVPB ×3 (05:56→22:09)
[2018-12-10 06:16] LABS: HEMOGLOBIN 6.8 g/dl (14.0-18.0); PLATELET COUNT 88 10^3/UL (140-415)
[2018-12-10 07:36] LABS: AADO2 Arterial 103.7 mmHg (7.0-24.0); Allen Test ACCEPTAB; Arterial Base Excess 3.8 mmol/L (-3.0-3); Arterial Blood Gas Oxygen Sat 98.7 mmHG (95.0-98.0); Arterial COHb 0.5 % (0.0-3.0); Arterial HCO3 27.6 mmol/L (22.0-26.0); Arterial MetHb 0.2 % (0.0-1.5); Arterial pCO2 38.1 mmhg (35-45); MODE VENT - AC; Site Right Radial
[2018-12-10 08:06] LABS: IMMEDIATE SPIN CROSSMATCH 1 1
[2018-12-10] MEDS ORDERED: DIPHENHYDRAMINE 25 MG CAP NGT (08:30)
[2018-12-10] MEDS: LUBIPROSTONE 8 MCG CAPSULE NGT ×3 (09:00→20:58)
[2018-12-10] MEDS: METOPROLOL 25 MG TAB NGT ×2 (09:00→20:56)
[2018-12-10] MEDS: LEVOTHYROXINE 100 MCG TAB NGT (09:35)
[2018-12-10] MEDS: ARTIFICIAL TEARS 15 ML OPH BOTH EYES ×3 (09:35→20:57)
[2018-12-10] MEDS: BUMETANIDE 1 MG TAB NGT ×2 (09:35→17:08)
[2018-12-10] MEDS: DAKINS 0.0125%(1/40) 473 ML SOLUTION TP ×2 (09:36→20:58)
[2018-12-10] MEDS: COLLAGENASE 5 GM (UD JAR) TOP ×2 (09:37→20:54)
[2018-12-10] MEDS: METHADONE (1 MG/ML 5 ML PO UD SYG) NGT ×3 (09:42→17:09)
[2018-12-10] MEDS: HEPARIN 1000 UNITS/ML 10 ML INJ CATHETER (11:05)
[2018-12-10] MEDS: EPOETIN ALFA-EPBX (ESRD) 10,000 UNIT/ML VIAL SC (16:20)
[2018-12-10] MEDS: DEXTROSE 5%-0.45% NACL 1,000 ML IV (20:00)
[2018-12-10] MEDS: traZODone 50 MG TAB NGT (20:55)
[2018-12-11 00:03] LABS: MODE MASK - NRB
[2018-12-11 00:04] LABS: MODE MASK - NRB
[2018-12-11] MEDS: METHADONE (1 MG/ML 5 ML PO UD SYG) NGT ×5 (00:08→23:57)
[2018-12-11] MEDS: INSULIN ASPART [NOVOLOG] 3 ML PEN SC ×6 (02:36→20:42)
[2018-12-11] MEDS: PROPOFOL 100 ML IV ×2 (04:51→11:54)
[2018-12-11] MEDS: DEXTROSE 5%-0.45% NACL 1,000 ML IV (04:52)
[2018-12-11 05:10] LABS: ADD MAN DIFF? NO
[2018-12-11] MEDS: LEVOTHYROXINE 100 MCG TAB NGT (05:10)
[2018-12-11] MEDS: PIPER-TAZO 2.25 GM/NS 50 ML IVPB ×2 (05:10→15:00)
[2018-12-11] MEDS: BUMETANIDE 1 MG TAB NGT ×2 (05:10→18:51)
[2018-12-11 05:15] LABS: ABNORMAL IP MESSAGE 1; BASOPHILS % 0.5 % (0.0-2.0); EOSINOPHILS # 0.5 10^3/ul (0.0-0.5); EOSINOPHILS % 7.6 % (0.0-7.0); HEMATOCRIT 24.7 % (42.0-52.0); HEMOGLOBIN 7.5 g/dl (14.0-18.0); LYMPHOCYTES # 2.5 10^3/ul (0.8-2.9); LYMPHOCYTES % 38.4 % (15.0-51.0); MEAN CORPUSCULAR HEMOGLOBIN 27.4 pg (29.0-33.0); MEAN CORPUSCULAR HGB CONC 30.4 g/dl (32.0-37.0); MEAN CORPUSCULAR VOLUME 90.1 fl (82.0-101.0); MEAN PLATELET VOLUME 9.1 fl (7.4-10.4); MONOCYTE # 0.5 10^3/ul (0.3-0.9); NEUTROPHIL # 2.7 10^3/ul (1.6-7.5); NUCLEATED RED BLOOD CELLS # 0.1 10^3/ul (0.0-0.0); NUCLEATED RED BLOOD CELLS% 0.9 /100WBC (0.0-0.0); PLATELET COUNT 73 10^3/UL (140-415); POSITIVE DIFF @See below; RED BLOOD COUNT 2.74 10^6/ul (4.70-6.10); RED CELL DISTRIBUTION WIDTH 18.2 % (11.5-14.5)
[2018-12-11 05:15] LABS: WHITE BLOOD COUNT 6.5 10^3/ul (4.8-10.8)
[2018-12-11 05:41] LABS: ANION GAP 6 (5-13); BLOOD UREA NITROGEN 16 mg/dl (7-20); CALCIUM 7.3 mg/dl (8.4-10.2); CARBON DIOXIDE 29 mmol/L (21-31); CHLORIDE 103 mmol/L (97-110); CREATININE 2.08 mg/dl (0.61-1.24); Estimated GFR 34 mL/min (>60); GLUCOSE 81 mg/dl (70-220); MAGNESIUM 1.9 mg/dl (1.7-2.5); PHOSPHORUS 1.9 mg/dl (2.5-4.9); POTASSIUM 3.1 mmol/L (3.5-5.1); SODIUM 138 mmol/L (135-144)
[2018-12-11] MEDS: METOPROLOL 25 MG TAB NGT ×2 (09:00→20:13)
[2018-12-11] MEDS ORDERED: morphine 2 MG INJ IV ×2 (12:00)
[2018-12-11] MEDS ORDERED: LABETALOL HCL 20MG INJ IV (12:00)
[2018-12-11] MEDS ORDERED: EPHEDrine 25 MG/5 ML SYG IV (12:00)
[2018-12-11] MEDS ORDERED: MIDAZOLAM 1 MG/ML 2 ML INJ IV (12:00)
[2018-12-11] MEDS ORDERED: hydrALAzine 20 MG INJ IV (12:00)
[2018-12-11] MEDS: POTASSIUM CHLORIDE 100 ML IVPB (12:05)
[2018-12-11] MEDS: ARTIFICIAL TEARS 15 ML OPH BOTH EYES ×3 (12:06→20:12)
[2018-12-11] MEDS: DAKINS 0.0125%(1/40) 473 ML SOLUTION TP ×2 (12:11→21:33)
[2018-12-11] MEDS: COLLAGENASE 5 GM (UD JAR) TOP ×2 (12:11→20:35)
[2018-12-11] MEDS: LUBIPROSTONE 8 MCG CAPSULE NGT ×2 (12:31→20:36)
[2018-12-11 12:42] LABS: FLD MN% 87.8 %; FLD PMN% 12.2 %; FLD RBC 1000 /uL; FLD WBC 132 /cmm
[2018-12-11] MEDS: LIDOCAINE 1% (MDV) 20 ML INJ (13:00)
[2018-12-11 13:01] LABS: FLUID LD 318 U/L; FLUID TOTAL PROTEIN < 2.0 g/dl; FLUID TYPE PLEURAL FLUID
[2018-12-11 13:12] LABS: FLD TYPE PLEURAL
[2018-12-11 13:13] LABS: FLD CLARITY HAZY
[2018-12-11 13:14] LABS: FLD COLOR YELLOW; PATH REVIEW? YES
[2018-12-11] MEDS: MIDAZOLAM (DRIP) 50 mg/50 mL 50 ML IV (16:37)
[2018-12-11] MEDS: FENTAnyl (DRIP) 1000 mcg/100mL 100 ML IV (17:01)
[2018-12-11] MEDS: hydrALAzine 20 MG INJ IV (20:09)
[2018-12-11] MEDS: traZODone 50 MG TAB NGT (20:36)
[2018-12-11] MEDS: MEROPENEM 1 GM/50ML(PMX) 50 ML IVPB (22:07)
[2018-12-12] MEDS: INSULIN ASPART [NOVOLOG] 3 ML PEN SC ×4 (00:57→18:00)
[2018-12-12 05:02] LABS: ADD MAN DIFF? NO
[2018-12-12] MEDS: DEXTROSE 5%-0.45% NACL 1,000 ML IV (05:04)
[2018-12-12] MEDS: BUMETANIDE 1 MG TAB NGT ×2 (05:10→18:00)
[2018-12-12] MEDS: LEVOTHYROXINE 100 MCG TAB NGT (05:10)
[2018-12-12] MEDS: MEROPENEM 1 GM/50ML(PMX) 50 ML IVPB ×3 (05:10→21:01)
[2018-12-12] MEDS: METHADONE (1 MG/ML 5 ML PO UD SYG) NGT ×3 (05:10→17:55)
[2018-12-12 05:12] LABS: ABNORMAL IP MESSAGE 1; BASOPHIL # 0.1 10^3/ul (0.0-0.1); BASOPHILS % 0.7 % (0.0-2.0); EOSINOPHILS # 0.6 10^3/ul (0.0-0.5); EOSINOPHILS % 8.2 % (0.0-7.0); HEMATOCRIT 26.1 % (42.0-52.0); HEMOGLOBIN 8.1 g/dl (14.0-18.0); LYMPHOCYTES # 1.9 10^3/ul (0.8-2.9); LYMPHOCYTES % 28.4 % (15.0-51.0); MEAN CORPUSCULAR HEMOGLOBIN 27.9 pg (29.0-33.0); MEAN PLATELET VOLUME 10.2 fl (7.4-10.4); MONOCYTE # 0.4 10^3/ul (0.3-0.9); MONOCYTES % 6.1 % (0.0-11.0); NEUTROPHIL # 3.5 10^3/ul (1.6-7.5); NEUTROPHILS % 51.8 % (39.0-77.0); NUCLEATED RED BLOOD CELLS% 0.6 /100WBC (0.0-0.0); PLATELET COUNT 75 10^3/UL (140-415); POSITIVE DIFF @See below; RED CELL DISTRIBUTION WIDTH 18.2 % (11.5-14.5)
[2018-12-12 05:12] LABS: WHITE BLOOD COUNT 6.8 10^3/ul (4.8-10.8)
[2018-12-12 05:47] LABS: ANION GAP 5 (5-13); BLOOD UREA NITROGEN 19 mg/dl (7-20); CALCIUM 7.2 mg/dl (8.4-10.2); CARBON DIOXIDE 27 mmol/L (21-31); CHLORIDE 104 mmol/L (97-110); CREATININE 2.36 mg/dl (0.61-1.24); Estimated GFR 29 mL/min (>60); GLUCOSE 116 mg/dl (70-220); MAGNESIUM 1.8 mg/dl (1.7-2.5); PHOSPHORUS 2.4 mg/dl (2.5-4.9); POTASSIUM 3.3 mmol/L (3.5-5.1); SODIUM 136 mmol/L (135-144)
[2018-12-12] MEDS: MIDAZOLAM (DRIP) 50 mg/50 mL 50 ML IV (06:46)
[2018-12-12] MEDS: LUBIPROSTONE 8 MCG CAPSULE NGT ×3 (09:58→20:54)
[2018-12-12] MEDS: COLLAGENASE 5 GM (UD JAR) TOP ×2 (09:59→20:55)
[2018-12-12] MEDS: DAKINS 0.0125%(1/40) 473 ML SOLUTION TP ×2 (09:59→20:56)
[2018-12-12] MEDS: ARTIFICIAL TEARS 15 ML OPH BOTH EYES ×3 (09:59→20:53)
[2018-12-12] MEDS: ALBUMIN HUMAN 25% 100 ML IV (10:08)
[2018-12-12] MEDS: EPOETIN ALFA-EPBX (ESRD) 10,000 UNIT/ML VIAL SC (17:54)
[2018-12-12] MEDS: traZODone 50 MG TAB NGT (20:53)
[2018-12-12] MEDS: METOPROLOL 50 MG TAB NGT (20:55)
[2018-12-12] MEDS: FENTAnyl (DRIP) 1000 mcg/100mL 100 ML IV (23:10)
[2018-12-13] MEDS: METHADONE (1 MG/ML 5 ML PO UD SYG) NGT ×4 (00:12→21:12)
[2018-12-13] MEDS: POTASSIUM CHLORIDE 100 ML IVPB (02:18)
[2018-12-13 04:56] LABS: ADD MAN DIFF? NO
[2018-12-13 05:02] LABS: WHITE BLOOD COUNT 8.4 10^3/ul (4.8-10.8)
[2018-12-13 05:02] LABS: ABNORMAL IP MESSAGE 1; BASOPHILS % 0.5 % (0.0-2.0); EOSINOPHILS # 0.7 10^3/ul (0.0-0.5); EOSINOPHILS % 8.1 % (0.0-7.0); HEMOGLOBIN 8.1 g/dl (14.0-18.0); LYMPHOCYTES # 2.3 10^3/ul (0.8-2.9); LYMPHOCYTES % 26.8 % (15.0-51.0); MEAN CORPUSCULAR HEMOGLOBIN 27.6 pg (29.0-33.0); MEAN CORPUSCULAR VOLUME 92.2 fl (82.0-101.0); MEAN PLATELET VOLUME 10.4 fl (7.4-10.4); MONOCYTE # 0.6 10^3/ul (0.3-0.9); MONOCYTES % 7.4 % (0.0-11.0); NEUTROPHIL # 4.5 10^3/ul (1.6-7.5); NEUTROPHILS % 53.3 % (39.0-77.0); NUCLEATED RED BLOOD CELLS% 0.5 /100WBC (0.0-0.0); PLATELET COUNT 95 10^3/UL (140-415); POSITIVE DIFF @See below; RED BLOOD COUNT 2.93 10^6/ul (4.70-6.10); RED CELL DISTRIBUTION WIDTH 18.6 % (11.5-14.5)
[2018-12-13 05:22] LABS: ALANINE AMINOTRANSFERASE 22 IU/L (13-69); ALKALINE PHOSPHATASE 90 IU/L (42-121); ANION GAP 4 (5-13); ASPARTATE AMINO TRANSFERASE 13 IU/L (15-46); BILIRUBIN,INDIRECT 0.2 mg/dl (0-1.1); BILIRUBIN,TOTAL 0.2 mg/dl (0.2-1.3); BLOOD UREA NITROGEN 12 mg/dl (7-20); CARBON DIOXIDE 28 mmol/L (21-31); CHLORIDE 105 mmol/L (97-110); CREATININE 1.83 mg/dl (0.61-1.24); Estimated GFR 39 mL/min (>60); GLUCOSE 106 mg/dl (70-220); POTASSIUM 3.7 mmol/L (3.5-5.1); SODIUM 137 mmol/L (135-144); TOTAL PROTEIN 4.5 g/dl (6.1-8.1)
[2018-12-13] MEDS: INSULIN ASPART [NOVOLOG] 3 ML PEN SC ×4 (05:57→18:00)
[2018-12-13] MEDS: LEVOTHYROXINE 100 MCG TAB NGT (05:57)
[2018-12-13] MEDS: MEROPENEM 1 GM/50ML(PMX) 50 ML IVPB ×3 (05:57→21:12)
[2018-12-13] MEDS: BUMETANIDE 1 MG TAB NGT ×2 (05:57→17:55)
[2018-12-13] MEDS: LUBIPROSTONE 8 MCG CAPSULE NGT ×2 (10:21→21:10)
[2018-12-13] MEDS: ARTIFICIAL TEARS 15 ML OPH BOTH EYES ×3 (10:21→21:10)
[2018-12-13] MEDS: METOPROLOL 50 MG TAB NGT ×2 (10:22→21:00)
[2018-12-13] MEDS: HYDROmorphONE 2 MG/ML SYG IV ×3 (11:18→22:13)
[2018-12-13 12:01] LABS: LACTATE DEHYDROGENASE 548 IU/L (313-618)
[2018-12-13 13:33] LABS: AADO2 Arterial 69.4 mmHg (7.0-24.0); Allen Test ACCEPTAB; Arterial Base Excess -0.5 mmol/L (-3.0-3); Arterial Blood Gas Oxygen Sat 97.4 mmHG (95.0-98.0); Arterial Fraction of Oxyhgb 96.2 % (93.0-99.0); Arterial HCO3 24.6 mmol/L (22.0-26.0); Arterial MetHb 0.2 % (0.0-1.5); Arterial pCO2 42.3 mmhg (35-45); Blood Gas PS 10; MODE VENT - CPAP; Site Left Radial
[2018-12-13] MEDS: DAKINS 0.0125%(1/40) 473 ML SOLUTION TP ×2 (16:35→21:12)
[2018-12-13] MEDS: COLLAGENASE 5 GM (UD JAR) TOP ×2 (16:36→21:12)
[2018-12-13] MEDS: traZODone 50 MG TAB NGT (21:10)
[2018-12-14] MEDS: hydrALAzine 20 MG INJ IV (00:32)
[2018-12-14] MEDS: HYDROmorphONE 2 MG/ML SYG IV ×4 (03:17→21:48)
[2018-12-14 05:25] LABS: ADD MAN DIFF? NO
[2018-12-14] MEDS: MEROPENEM 1 GM/50ML(PMX) 50 ML IVPB ×3 (05:37→21:48)
[2018-12-14] MEDS: BUMETANIDE 1 MG TAB NGT ×2 (05:38→18:00)
[2018-12-14] MEDS: INSULIN ASPART [NOVOLOG] 3 ML PEN SC ×5 (05:38→23:26)
[2018-12-14] MEDS: LEVOTHYROXINE 100 MCG TAB NGT (05:38)
[2018-12-14 05:43] LABS: BASOPHIL # 0.1 10^3/ul (0.0-0.1); BASOPHILS % 0.6 % (0.0-2.0); EOSINOPHILS # 0.8 10^3/ul (0.0-0.5); EOSINOPHILS % 9.3 % (0.0-7.0); HEMATOCRIT 28.2 % (42.0-52.0); HEMOGLOBIN 8.7 g/dl (14.0-18.0); LYMPHOCYTES # 2.1 10^3/ul (0.8-2.9); LYMPHOCYTES % 25.2 % (15.0-51.0); MEAN CORPUSCULAR HEMOGLOBIN 28.2 pg (29.0-33.0); MEAN CORPUSCULAR HGB CONC 30.9 g/dl (32.0-37.0); MEAN CORPUSCULAR VOLUME 91.6 fl (82.0-101.0); MEAN PLATELET VOLUME 9.6 fl (7.4-10.4); MONOCYTE # 0.5 10^3/ul (0.3-0.9); MONOCYTES % 6.4 % (0.0-11.0); NEUTROPHIL # 4.5 10^3/ul (1.6-7.5); PLATELET COUNT 107 10^3/UL (140-415); RED BLOOD COUNT 3.08 10^6/ul (4.70-6.10); RED CELL DISTRIBUTION WIDTH 19.1 % (11.5-14.5)
[2018-12-14 05:43] LABS: WHITE BLOOD COUNT 8.2 10^3/ul (4.8-10.8)
[2018-12-14 05:59] LABS: ANION GAP 2 (5-13); BLOOD UREA NITROGEN 20 mg/dl (7-20); CALCIUM 7.4 mg/dl (8.4-10.2); CARBON DIOXIDE 29 mmol/L (21-31); CHLORIDE 104 mmol/L (97-110); CREATININE 2.42 mg/dl (0.61-1.24); Estimated GFR 28 mL/min (>60); GLUCOSE 85 mg/dl (70-220); PHOSPHORUS 2.7 mg/dl (2.5-4.9); POTASSIUM 3.5 mmol/L (3.5-5.1); SODIUM 135 mmol/L (135-144)
[2018-12-14] MEDS: METHADONE (1 MG/ML 5 ML PO UD SYG) NGT ×2 (08:49→21:00)
[2018-12-14] MEDS: METOPROLOL 50 MG TAB NGT ×2 (08:50→21:00)
[2018-12-14] MEDS: LUBIPROSTONE 8 MCG CAPSULE NGT ×2 (08:51→21:00)
[2018-12-14] MEDS: ARTIFICIAL TEARS 15 ML OPH BOTH EYES ×3 (08:51→21:51)
[2018-12-14] MEDS: DAKINS 0.0125%(1/40) 473 ML SOLUTION TP ×2 (08:52→21:49)
[2018-12-14] MEDS: COLLAGENASE 5 GM (UD JAR) TOP ×2 (08:52→21:49)
[2018-12-14 12:51] LABS: AADO2 Arterial 37.5 mmHg (7.0-24.0); Allen Test ACCEPTAB; Arterial Base Excess 0.1 mmol/L (-3.0-3); Arterial Blood Gas Oxygen Sat 98.1 mmHG (95.0-98.0); Arterial COHb 0.1 % (0.0-3.0); Arterial Fraction of Oxyhgb 97.9 % (93.0-99.0); Arterial MetHb 0.1 % (0.0-1.5); Arterial pCO2 48.1 mmhg (35-45); Blood Gas PS 10; MODE VENT - CPAP; Site Right Radial
[2018-12-14] MEDS ORDERED: FENTAnyl 50 MCG/ML VIAL IV (20:00)
[2018-12-14] MEDS: traZODone 50 MG TAB NGT (21:00)
[2018-12-14] MEDS: DEXTROSE 50% 50 ML SYRINGE IV (23:26)
[2018-12-15] MEDS: DEXTROSE 50% 50 ML SYRINGE IV ×2 (05:10→08:51)
[2018-12-15] MEDS: MEROPENEM 1 GM/50ML(PMX) 50 ML IVPB ×3 (05:10→21:52)
[2018-12-15] MEDS: INSULIN ASPART [NOVOLOG] 3 ML PEN SC ×3 (05:12→21:00)
[2018-12-15] MEDS: BUMETANIDE 1 MG TAB NGT (05:12)
[2018-12-15] MEDS: LEVOTHYROXINE 100 MCG TAB NGT (05:12)
[2018-12-15 06:06] LABS: ADD MAN DIFF? NO
[2018-12-15 06:15] LABS: BASOPHIL # 0.1 10^3/ul (0.0-0.1); BASOPHILS % 0.9 % (0.0-2.0); EOSINOPHILS # 0.9 10^3/ul (0.0-0.5); EOSINOPHILS % 12.5 % (0.0-7.0); HEMATOCRIT 28.1 % (42.0-52.0); HEMOGLOBIN 8.3 g/dl (14.0-18.0); LYMPHOCYTES % 28.1 % (15.0-51.0); MEAN CORPUSCULAR HEMOGLOBIN 27.9 pg (29.0-33.0); MEAN CORPUSCULAR HGB CONC 29.5 g/dl (32.0-37.0); MEAN CORPUSCULAR VOLUME 94.6 fl (82.0-101.0); MEAN PLATELET VOLUME 9.7 fl (7.4-10.4); MONOCYTE # 0.5 10^3/ul (0.3-0.9); MONOCYTES % 7.7 % (0.0-11.0); NEUTROPHIL # 3.4 10^3/ul (1.6-7.5); NEUTROPHILS % 48.1 % (39.0-77.0); PLATELET COUNT 123 10^3/UL (140-415); RED BLOOD COUNT 2.97 10^6/ul (4.70-6.10); RED CELL DISTRIBUTION WIDTH 19.3 % (11.5-14.5)
[2018-12-15 06:15] LABS: WHITE BLOOD COUNT 7.1 10^3/ul (4.8-10.8)
[2018-12-15 06:29] LABS: ANION GAP 4 (5-13); BLOOD UREA NITROGEN 25 mg/dl (7-20); CALCIUM 7.6 mg/dl (8.4-10.2); CARBON DIOXIDE 28 mmol/L (21-31); CHLORIDE 104 mmol/L (97-110); CREATININE 3.01 mg/dl (0.61-1.24); Estimated GFR 22 mL/min (>60); MAGNESIUM 2.1 mg/dl (1.7-2.5); PHOSPHORUS 4.4 mg/dl (2.5-4.9); SODIUM 136 mmol/L (135-144)
[2018-12-15 06:35] LABS: GLUCOSE 50 mg/dl (70-220)
[2018-12-15] MEDS: HYDROmorphONE 2 MG/ML SYG IV ×3 (08:51→22:30)
[2018-12-15] MEDS: ARTIFICIAL TEARS 15 ML OPH BOTH EYES ×3 (08:55→21:52)
[2018-12-15] MEDS: COLLAGENASE 5 GM (UD JAR) TOP ×2 (08:56→22:16)
[2018-12-15] MEDS: DAKINS 0.0125%(1/40) 473 ML SOLUTION TP ×2 (08:56→21:50)
[2018-12-15] MEDS: ACCU-CHEK XX (09:00)
[2018-12-15] MEDS: LUBIPROSTONE 8 MCG CAPSULE PO (10:42)
[2018-12-15] MEDS: METOPROLOL 50 MG TAB PO ×2 (10:44→21:56)
[2018-12-15] MEDS: CYCLOBENZAPRINE 10 MG TAB PO (10:46)
[2018-12-15] MEDS: METHADONE (1 MG/ML 5 ML PO UD SYG) PO ×2 (10:49→21:54)
[2018-12-15] MEDS: hydrALAzine 20 MG INJ IV (11:05)
[2018-12-15] MEDS: ALBUMIN HUMAN 25% 100 ML IV (13:44)
[2018-12-15] MEDS ORDERED: DIPHENHYDRAMINE 25 MG CAP PO (14:30)
[2018-12-15] MEDS ORDERED: ACETAMINOPHEN 500 MG TAB PO (16:00)
[2018-12-15] MEDS: HEPARIN 1000 UNITS/ML 10 ML INJ CATHETER (16:19)
[2018-12-15] MEDS: BUMETANIDE 1 MG TAB PO (17:40)
[2018-12-15] MEDS: EPOETIN ALFA-EPBX (ESRD) 10,000 UNIT/ML VIAL SC (17:43)
[2018-12-15] MEDS: traZODone 50 MG TAB PO (21:53)
[2018-12-15] MEDS: ALBUTEROL/IPRATROPIUM (NEB) 3 ML AMP HHN (23:32)
[2018-12-16] MEDS: LUBIPROSTONE 8 MCG CAPSULE PO ×3 (00:37→20:59)
[2018-12-16] MEDS: CYCLOBENZAPRINE 10 MG TAB PO (00:37)
[2018-12-16] MEDS: HYDROmorphONE 2 MG/ML SYG IV ×4 (03:08→20:59)
[2018-12-16] MEDS: MEROPENEM 1 GM/50ML(PMX) 50 ML IVPB ×3 (06:50→23:48)
[2018-12-16] MEDS: BUMETANIDE 1 MG TAB PO ×2 (06:51→17:46)
[2018-12-16] MEDS: LEVOTHYROXINE 100 MCG TAB PO (06:51)
[2018-12-16 06:55] LABS: PROCALCITONIN 0.04 ng/mL (0.00-0.10)
[2018-12-16] MEDS: INSULIN ASPART [NOVOLOG] 3 ML PEN SC ×4 (08:00→20:56)
[2018-12-16] MEDS: ARTIFICIAL TEARS 15 ML OPH BOTH EYES ×3 (08:13→21:00)
[2018-12-16] MEDS: COLLAGENASE 5 GM (UD JAR) TOP ×2 (08:14→21:07)
[2018-12-16] MEDS: DAKINS 0.0125%(1/40) 473 ML SOLUTION TP ×2 (08:14→21:05)
[2018-12-16] MEDS: METOPROLOL 50 MG TAB PO ×2 (08:15→21:03)
[2018-12-16] MEDS: METHADONE (1 MG/ML 5 ML PO UD SYG) PO ×2 (08:16→21:01)
[2018-12-16] MEDS: traZODone 50 MG TAB PO (21:02)
[2018-12-17] MEDS: HYDROmorphONE 2 MG/ML SYG IV ×6 (01:01→23:08)
[2018-12-17 06:40] LABS: ADD MAN DIFF? NO
[2018-12-17] MEDS: BUMETANIDE 1 MG TAB PO ×2 (06:44→18:11)
[2018-12-17] MEDS: LEVOTHYROXINE 100 MCG TAB PO (06:45)
[2018-12-17 06:50] LABS: WHITE BLOOD COUNT 10.8 10^3/ul (4.8-10.8)
[2018-12-17 06:50] LABS: BASOPHIL # 0.1 10^3/ul (0.0-0.1); BASOPHILS % 0.7 % (0.0-2.0); EOSINOPHILS # 1.1 10^3/ul (0.0-0.5); EOSINOPHILS % 9.9 % (0.0-7.0); HEMATOCRIT 30.3 % (42.0-52.0); HEMOGLOBIN 9.2 g/dl (14.0-18.0); LYMPHOCYTES % 27.4 % (15.0-51.0); MEAN CORPUSCULAR HEMOGLOBIN 28.5 pg (29.0-33.0); MEAN CORPUSCULAR HGB CONC 30.4 g/dl (32.0-37.0); MEAN CORPUSCULAR VOLUME 93.8 fl (82.0-101.0); MEAN PLATELET VOLUME 9.7 fl (7.4-10.4); MONOCYTE # 0.8 10^3/ul (0.3-0.9); MONOCYTES % 7.3 % (0.0-11.0); NEUTROPHIL # 5.7 10^3/ul (1.6-7.5); NEUTROPHILS % 52.8 % (39.0-77.0); PLATELET COUNT 181 10^3/UL (140-415); RED BLOOD COUNT 3.23 10^6/ul (4.70-6.10); RED CELL DISTRIBUTION WIDTH 19.8 % (11.5-14.5)
[2018-12-17 07:20] LABS: ANION GAP 5 (5-13); BLOOD UREA NITROGEN 22 mg/dl (7-20); CALCIUM 7.6 mg/dl (8.4-10.2); CARBON DIOXIDE 28 mmol/L (21-31); CHLORIDE 103 mmol/L (97-110); CREATININE 2.72 mg/dl (0.61-1.24); Estimated GFR 25 mL/min (>60); GLUCOSE 65 mg/dl (70-220); POTASSIUM 4.4 mmol/L (3.5-5.1); SODIUM 136 mmol/L (135-144)
[2018-12-17] MEDS: INSULIN ASPART [NOVOLOG] 3 ML PEN SC ×4 (08:00→21:00)
[2018-12-17] MEDS: COLLAGENASE 5 GM (UD JAR) TOP (08:28)
[2018-12-17] MEDS: METOPROLOL 50 MG TAB PO (08:28)
[2018-12-17] MEDS: LUBIPROSTONE 8 MCG CAPSULE PO (08:29)
[2018-12-17] MEDS: MEROPENEM 1 GM/50ML(PMX) 50 ML IVPB (08:29)
[2018-12-17] MEDS: ARTIFICIAL TEARS 15 ML OPH BOTH EYES ×3 (08:29→21:00)
[2018-12-17] MEDS: DAKINS 0.0125%(1/40) 473 ML SOLUTION TP ×2 (08:30→21:00)
[2018-12-17] MEDS: METHADONE (1 MG/ML 5 ML PO UD SYG) PO (08:30)
[2018-12-17] MEDS: EPOETIN ALFA-EPBX (ESRD) 10,000 UNIT/ML VIAL SC (16:51)
[2018-12-18] MEDS: HEPARIN 1000 UNITS/ML 10 ML INJ CATHETER (00:21)
[2018-12-18] MEDS: FLUTICASONE 0.05% 16 GM NAS SPRAY NASAL ×3 (00:27→21:15)
[2018-12-18] MEDS: METHADONE (1 MG/ML 5 ML PO UD SYG) PO ×3 (00:28→21:04)
[2018-12-18] MEDS: LUBIPROSTONE 8 MCG CAPSULE PO ×3 (00:29→21:04)
[2018-12-18] MEDS: COLLAGENASE 5 GM (UD JAR) TOP ×3 (00:29→21:55)
[2018-12-18] MEDS: traZODone 50 MG TAB PO ×2 (00:30→21:04)
[2018-12-18] MEDS: METOPROLOL 50 MG TAB PO ×3 (00:31→21:05)
[2018-12-18] MEDS: HYDROmorphONE 2 MG/ML SYG IV ×5 (04:23→21:54)
[2018-12-18] MEDS: BUMETANIDE 1 MG TAB PO ×2 (06:13→17:49)
[2018-12-18] MEDS: LEVOTHYROXINE 100 MCG TAB PO (06:13)
[2018-12-18] MEDS: INSULIN ASPART [NOVOLOG] 3 ML PEN SC ×4 (08:00→21:00)
[2018-12-18] MEDS: DAKINS 0.0125%(1/40) 473 ML SOLUTION TP ×2 (09:00→21:55)
[2018-12-18] MEDS: ONDANSETRON 4 MG INJ IV ×2 (09:24→17:44)
[2018-12-18] MEDS: CYCLOBENZAPRINE 10 MG TAB PO ×2 (09:25→17:44)
[2018-12-18] MEDS: ARTIFICIAL TEARS 15 ML OPH BOTH EYES ×3 (09:27→21:00)
[2018-12-18] MEDS ORDERED: PENDING SANTYL ORDER FOR WOUND CARE XX (16:00)
[2018-12-19] MEDS: HYDROmorphONE 2 MG/ML SYG IV ×5 (02:43→22:39)
[2018-12-19] MEDS: LEVOTHYROXINE 100 MCG TAB PO (05:00)
[2018-12-19] MEDS: BUMETANIDE 1 MG TAB PO ×2 (05:01→18:21)
[2018-12-19] MEDS: INSULIN ASPART [NOVOLOG] 3 ML PEN SC ×4 (08:00→20:55)
[2018-12-19] MEDS: ARTIFICIAL TEARS 15 ML OPH BOTH EYES ×3 (08:08→20:52)
[2018-12-19] MEDS: FLUTICASONE 0.05% 16 GM NAS SPRAY NASAL ×2 (08:08→20:52)
[2018-12-19] MEDS: DAKINS 0.0125%(1/40) 473 ML SOLUTION TP ×2 (08:09→20:52)
[2018-12-19] MEDS: COLLAGENASE 5 GM (UD JAR) TOP ×2 (08:09→20:54)
[2018-12-19] MEDS: METOPROLOL 50 MG TAB PO ×2 (09:00→20:54)
[2018-12-19] MEDS: CYCLOBENZAPRINE 10 MG TAB PO (09:50)
[2018-12-19] MEDS: LUBIPROSTONE 8 MCG CAPSULE PO ×2 (09:50→20:54)
[2018-12-19] MEDS: ONDANSETRON 4 MG INJ IV (09:51)
[2018-12-19] MEDS: METHADONE (1 MG/ML 5 ML PO UD SYG) PO ×2 (09:51→20:55)
[2018-12-19] MEDS: BALSAM PERU/CASTOR OIL 60 GM TUBE TOP ×2 (13:46→22:38)
[2018-12-19] MEDS: ALBUMIN HUMAN 25% 100 ML IV (15:30)
[2018-12-19] MEDS: HEPARIN 1000 UNITS/ML 10 ML INJ CATHETER (18:19)
[2018-12-19] MEDS: EPOETIN ALFA-EPBX (ESRD) 10,000 UNIT/ML VIAL SC (18:21)
[2018-12-19] MEDS: traZODone 50 MG TAB PO (20:53)
[2018-12-20] MEDS: HYDROmorphONE 2 MG/ML SYG IV ×5 (02:35→21:33)
[2018-12-20] MEDS: LEVOTHYROXINE 100 MCG TAB PO (06:29)
[2018-12-20] MEDS: INSULIN ASPART [NOVOLOG] 3 ML PEN SC ×4 (08:00→21:00)
[2018-12-20] MEDS: FLUTICASONE 0.05% 16 GM NAS SPRAY NASAL ×2 (10:02→21:03)
[2018-12-20] MEDS: ARTIFICIAL TEARS 15 ML OPH BOTH EYES ×3 (10:02→21:07)
[2018-12-20] MEDS: COLLAGENASE 5 GM (UD JAR) TOP ×2 (10:02→21:03)
[2018-12-20] MEDS: METOPROLOL 50 MG TAB PO ×2 (10:03→21:04)
[2018-12-20] MEDS: BUMETANIDE 0.5 MG TAB PO ×2 (10:03→17:16)
[2018-12-20] MEDS: LUBIPROSTONE 8 MCG CAPSULE PO ×2 (10:04→21:03)
[2018-12-20] MEDS: METHADONE (1 MG/ML 5 ML PO UD SYG) PO ×2 (10:05→21:05)
[2018-12-20] MEDS: BALSAM PERU/CASTOR OIL 60 GM TUBE TOP ×2 (10:08→21:06)
[2018-12-20] MEDS: DAKINS 0.0125%(1/40) 473 ML SOLUTION TP ×2 (10:08→21:06)
[2018-12-20] MEDS: traZODone 50 MG TAB PO (21:03)
[2018-12-21] MEDS: HYDROmorphONE 2 MG/ML SYG IV ×3 (03:44→15:06)
[2018-12-21 05:20] LABS: ADD MAN DIFF? NO
[2018-12-21 05:33] LABS: WHITE BLOOD COUNT 13.2 10^3/ul (4.8-10.8)
[2018-12-21 05:33] LABS: BASOPHIL # 0.1 10^3/ul (0.0-0.1); BASOPHILS % 0.7 % (0.0-2.0); EOSINOPHILS # 0.5 10^3/ul (0.0-0.5); EOSINOPHILS % 4.1 % (0.0-7.0); HEMATOCRIT 30.2 % (42.0-52.0); LYMPHOCYTES # 1.6 10^3/ul (0.8-2.9); LYMPHOCYTES % 12.2 % (15.0-51.0); MEAN CORPUSCULAR HEMOGLOBIN 28.1 pg (29.0-33.0); MEAN CORPUSCULAR HGB CONC 29.8 g/dl (32.0-37.0); MEAN CORPUSCULAR VOLUME 94.4 fl (82.0-101.0); MEAN PLATELET VOLUME 8.9 fl (7.4-10.4); MONOCYTE # 0.8 10^3/ul (0.3-0.9); MONOCYTES % 6.4 % (0.0-11.0); NEUTROPHILS % 75.8 % (39.0-77.0); PLATELET COUNT 187 10^3/UL (140-415); RED CELL DISTRIBUTION WIDTH 19.4 % (11.5-14.5)
[2018-12-21 06:01] LABS: ANION GAP 3 (5-13); BLOOD UREA NITROGEN 30 mg/dl (7-20); CALCIUM 7.9 mg/dl (8.4-10.2); CARBON DIOXIDE 28 mmol/L (21-31); CHLORIDE 105 mmol/L (97-110); CREATININE 3.07 mg/dl (0.61-1.24); Estimated GFR 21 mL/min (>60); GLUCOSE 79 mg/dl (70-220); POTASSIUM 4.1 mmol/L (3.5-5.1); SODIUM 136 mmol/L (135-144)
[2018-12-21] MEDS: BUMETANIDE 0.5 MG TAB PO ×2 (06:31→18:48)
[2018-12-21] MEDS: LEVOTHYROXINE 100 MCG TAB PO (06:31)
[2018-12-21] MEDS: INSULIN ASPART [NOVOLOG] 3 ML PEN SC ×4 (08:00→20:48)
[2018-12-21] MEDS: LUBIPROSTONE 8 MCG CAPSULE PO ×2 (09:00→20:42)
[2018-12-21] MEDS: ARTIFICIAL TEARS 15 ML OPH BOTH EYES ×3 (09:23→20:42)
[2018-12-21] MEDS: METOPROLOL 50 MG TAB PO ×2 (09:23→20:43)
[2018-12-21] MEDS: FLUTICASONE 0.05% 16 GM NAS SPRAY NASAL ×2 (09:23→20:42)
[2018-12-21] MEDS: BALSAM PERU/CASTOR OIL 60 GM TUBE TOP ×2 (09:24→20:44)
[2018-12-21] MEDS: COLLAGENASE 5 GM (UD JAR) TOP ×2 (09:24→20:44)
[2018-12-21] MEDS: DAKINS 0.0125%(1/40) 473 ML SOLUTION TP ×2 (09:24→20:44)
[2018-12-21] MEDS: METHADONE (1 MG/ML 5 ML PO UD SYG) PO ×2 (09:33→20:43)
[2018-12-21] MEDS: ONDANSETRON 4 MG INJ IV (10:42)
[2018-12-21] MEDS: traZODone 50 MG TAB PO (20:43)
[2018-12-22] MEDS: HYDROmorphONE 2 MG/ML SYG IV ×5 (01:57→22:54)
[2018-12-22] MEDS: LEVOTHYROXINE 100 MCG TAB PO (06:42)
[2018-12-22] MEDS: BUMETANIDE 0.5 MG TAB PO ×2 (06:42→17:31)
[2018-12-22] MEDS: INSULIN ASPART [NOVOLOG] 3 ML PEN SC ×4 (08:00→20:42)
[2018-12-22] MEDS: ARTIFICIAL TEARS 15 ML OPH BOTH EYES ×4 (08:52→22:38)
[2018-12-22] MEDS: FLUTICASONE 0.05% 16 GM NAS SPRAY NASAL ×2 (08:52→22:38)
[2018-12-22] MEDS: LUBIPROSTONE 8 MCG CAPSULE PO ×2 (08:53→22:36)
[2018-12-22] MEDS: METHADONE (1 MG/ML 5 ML PO UD SYG) PO ×2 (08:54→20:31)
[2018-12-22] MEDS: METOPROLOL 50 MG TAB PO ×2 (08:55→22:37)
[2018-12-22] MEDS: COLLAGENASE 5 GM (UD JAR) TOP ×3 (08:56→21:00)
[2018-12-22] MEDS: DAKINS 0.0125%(1/40) 473 ML SOLUTION TP ×3 (08:56→21:00)
[2018-12-22] MEDS: BALSAM PERU/CASTOR OIL 60 GM TUBE TOP ×3 (08:56→21:00)
[2018-12-22] MEDS: GUAIFENESIN/DM 5ML CUP PO (14:08)
[2018-12-22] MEDS: EPOETIN ALFA-EPBX (ESRD) 10,000 UNIT/ML VIAL SC (17:32)
[2018-12-22] MEDS: ALBUTEROL/IPRATROPIUM (NEB) 3 ML AMP HHN (19:26)
[2018-12-22] MEDS: traZODone 50 MG TAB PO (20:29)
[2018-12-22] MEDS: HEPARIN 1000 UNITS/ML 10 ML INJ CATHETER (22:01)
[2018-12-23] MEDS: HYDROmorphONE 2 MG/ML SYG IV ×3 (03:59→20:19)
[2018-12-23] MEDS: GUAIFENESIN/DM 5ML CUP PO (03:59)
[2018-12-23 05:37] LABS: ADD MAN DIFF? NO
[2018-12-23] MEDS: BUMETANIDE 0.5 MG TAB PO ×2 (05:39→17:24)
[2018-12-23] MEDS: LEVOTHYROXINE 100 MCG TAB PO (05:40)
[2018-12-23 05:47] LABS: BASOPHIL # 0.1 10^3/ul (0.0-0.1); EOSINOPHILS % 13.2 % (0.0-7.0); HEMATOCRIT 27.3 % (42.0-52.0); HEMOGLOBIN 8.1 g/dl (14.0-18.0); LYMPHOCYTES # 1.7 10^3/ul (0.8-2.9); LYMPHOCYTES % 23.4 % (15.0-51.0); MEAN CORPUSCULAR HGB CONC 29.7 g/dl (32.0-37.0); MEAN CORPUSCULAR VOLUME 94.5 fl (82.0-101.0); MEAN PLATELET VOLUME 8.9 fl (7.4-10.4); MONOCYTE # 0.5 10^3/ul (0.3-0.9); MONOCYTES % 7.4 % (0.0-11.0); NEUTROPHILS % 54.6 % (39.0-77.0); PLATELET COUNT 160 10^3/UL (140-415); RED BLOOD COUNT 2.89 10^6/ul (4.70-6.10); RED CELL DISTRIBUTION WIDTH 18.6 % (11.5-14.5)
[2018-12-23 05:47] LABS: WHITE BLOOD COUNT 7.3 10^3/ul (4.8-10.8)
[2018-12-23] MEDS: CYCLOBENZAPRINE 10 MG TAB PO (05:47)
[2018-12-23 06:36] LABS: ANION GAP 2 (5-13); BLOOD UREA NITROGEN 25 mg/dl (7-20); CALCIUM 7.6 mg/dl (8.4-10.2); CARBON DIOXIDE 30 mmol/L (21-31); CHLORIDE 104 mmol/L (97-110); CREATININE 2.53 mg/dl (0.61-1.24); Estimated GFR 27 mL/min (>60); GLUCOSE 124 mg/dl (70-220); POTASSIUM 4.1 mmol/L (3.5-5.1); SODIUM 136 mmol/L (135-144)
[2018-12-23] MEDS: ARTIFICIAL TEARS 15 ML OPH BOTH EYES ×3 (09:54→20:29)
[2018-12-23] MEDS: FLUTICASONE 0.05% 16 GM NAS SPRAY NASAL (09:54)
[2018-12-23] MEDS: INSULIN ASPART [NOVOLOG] 3 ML PEN SC ×4 (09:54→20:31)
[2018-12-23] MEDS: DAKINS 0.0125%(1/40) 473 ML SOLUTION TP ×2 (09:55→20:21)
[2018-12-23] MEDS: LUBIPROSTONE 8 MCG CAPSULE PO ×2 (09:56→20:29)
[2018-12-23] MEDS: BALSAM PERU/CASTOR OIL 60 GM TUBE TOP ×2 (09:56→20:21)
[2018-12-23] MEDS: COLLAGENASE 5 GM (UD JAR) TOP ×2 (09:56→20:20)
[2018-12-23] MEDS: METHADONE (1 MG/ML 5 ML PO UD SYG) PO ×2 (09:57→20:31)
[2018-12-23] MEDS: METOPROLOL 50 MG TAB PO ×2 (09:57→20:30)
[2018-12-23] MEDS: traZODone 50 MG TAB PO (20:30)
[2018-12-23] MEDS: ALBUTEROL/IPRATROPIUM (NEB) 3 ML AMP HHN (20:43)
[2018-12-24] MEDS: HYDROmorphONE 2 MG/ML SYG IV ×2 (00:41→17:42)
[2018-12-24] MEDS: GUAIFENESIN/DM 5ML CUP PO (00:45)
[2018-12-24] MEDS: BUMETANIDE 0.5 MG TAB PO ×2 (05:30→17:49)
[2018-12-24] MEDS: LEVOTHYROXINE 100 MCG TAB PO (05:30)
[2018-12-24 06:12] LABS: ADD MAN DIFF? NO
[2018-12-24 06:19] LABS: WHITE BLOOD COUNT 9.8 10^3/ul (4.8-10.8)
[2018-12-24 06:19] LABS: BASOPHIL # 0.1 10^3/ul (0.0-0.1); BASOPHILS % 1.1 % (0.0-2.0); EOSINOPHILS # 1.4 10^3/ul (0.0-0.5); HEMATOCRIT 27.6 % (42.0-52.0); HEMOGLOBIN 8.2 g/dl (14.0-18.0); LYMPHOCYTES # 3.1 10^3/ul (0.8-2.9); LYMPHOCYTES % 31.6 % (15.0-51.0); MEAN CORPUSCULAR HEMOGLOBIN 27.5 pg (29.0-33.0); MEAN CORPUSCULAR HGB CONC 29.7 g/dl (32.0-37.0); MEAN CORPUSCULAR VOLUME 92.6 fl (82.0-101.0); MEAN PLATELET VOLUME 9.1 fl (7.4-10.4); MONOCYTE # 0.9 10^3/ul (0.3-0.9); MONOCYTES % 8.7 % (0.0-11.0); NEUTROPHIL # 4.3 10^3/ul (1.6-7.5); NEUTROPHILS % 44.1 % (39.0-77.0); PLATELET COUNT 168 10^3/UL (140-415); RED BLOOD COUNT 2.98 10^6/ul (4.70-6.10); RED CELL DISTRIBUTION WIDTH 18.1 % (11.5-14.5)
[2018-12-24 06:37] LABS: ANION GAP 4 (5-13); BLOOD UREA NITROGEN 47 mg/dl (7-20); CALCIUM 7.8 mg/dl (8.4-10.2); CARBON DIOXIDE 29 mmol/L (21-31); CHLORIDE 102 mmol/L (97-110); CREATININE 3.45 mg/dl (0.61-1.24); Estimated GFR 19 mL/min (>60); GLUCOSE 107 mg/dl (70-220); POTASSIUM 4.7 mmol/L (3.5-5.1); SODIUM 135 mmol/L (135-144)
[2018-12-24 06:46] LABS: PROTIME 14.3 Sec (11.9-14.9); PT RATIO 1.1
[2018-12-24 06:47] LABS: PARTIAL THROMBOPLASTIN TIME 37.7 Sec (23.0-35.0)
[2018-12-24] MEDS: INSULIN ASPART [NOVOLOG] 3 ML PEN SC ×4 (08:00→21:00)
[2018-12-24] MEDS: COLLAGENASE 5 GM (UD JAR) TOP ×2 (08:41→21:04)
[2018-12-24] MEDS: LUBIPROSTONE 8 MCG CAPSULE PO ×2 (08:42→21:02)
[2018-12-24] MEDS: METHADONE (1 MG/ML 5 ML PO UD SYG) PO ×2 (08:42→21:03)
[2018-12-24] MEDS: METOPROLOL 50 MG TAB PO ×2 (08:43→21:03)
[2018-12-24] MEDS: ARTIFICIAL TEARS 15 ML OPH BOTH EYES ×3 (08:44→21:05)
[2018-12-24] MEDS: BALSAM PERU/CASTOR OIL 60 GM TUBE TOP ×2 (08:45→21:05)
[2018-12-24] MEDS: DAKINS 0.0125%(1/40) 473 ML SOLUTION TP ×2 (08:45→21:05)
[2018-12-24] MEDS ORDERED: ONDANSETRON 4 MG INJ IV (12:00)
[2018-12-24] MEDS ORDERED: LABETALOL HCL 20MG INJ IV (12:00)
[2018-12-24] MEDS ORDERED: FENTAnyl 50 MCG/ML VIAL IV ×3 (12:00)
[2018-12-24] MEDS: ALBUMIN HUMAN 25% 100 ML IV (14:50)
[2018-12-24] MEDS: HEPARIN 1000 UNITS/ML 10 ML INJ CATHETER (17:39)
[2018-12-24] MEDS: traZODone 50 MG TAB PO (21:03)
[2018-12-25] MEDS: HYDROmorphONE 2 MG/ML SYG IV ×5 (01:14→22:41)
[2018-12-25] MEDS: LEVOTHYROXINE 100 MCG TAB PO (06:14)
[2018-12-25] MEDS: BUMETANIDE 0.5 MG TAB PO ×2 (06:14→17:23)
[2018-12-25] MEDS: INSULIN ASPART [NOVOLOG] 3 ML PEN SC ×4 (07:48→20:32)
[2018-12-25] MEDS: ARTIFICIAL TEARS 15 ML OPH BOTH EYES ×3 (08:40→21:30)
[2018-12-25] MEDS: COLLAGENASE 5 GM (UD JAR) TOP ×2 (08:40→21:30)
[2018-12-25] MEDS: DAKINS 0.0125%(1/40) 473 ML SOLUTION TP ×2 (08:41→21:30)
[2018-12-25] MEDS: BALSAM PERU/CASTOR OIL 60 GM TUBE TOP ×2 (08:41→21:30)
[2018-12-25] MEDS: LUBIPROSTONE 8 MCG CAPSULE PO ×2 (08:42→21:26)
[2018-12-25] MEDS: METHADONE (1 MG/ML 5 ML PO UD SYG) PO ×2 (08:42→21:29)
[2018-12-25] MEDS: METOPROLOL 50 MG TAB PO ×2 (08:43→21:27)
[2018-12-25] MEDS: EPOETIN ALFA-EPBX (ESRD) 10,000 UNIT/ML VIAL SC (12:42)
[2018-12-25] MEDS: GUAIFENESIN/DM 5ML CUP PO (20:03)
[2018-12-25] MEDS: traZODone 50 MG TAB PO (21:27)
[2018-12-25] MEDS: ALBUTEROL/IPRATROPIUM (NEB) 3 ML AMP HHN (22:56)
[2018-12-26] MEDS: HYDROmorphONE 2 MG/ML SYG IV ×4 (02:58→21:48)
[2018-12-26] MEDS: LEVOTHYROXINE 100 MCG TAB PO (05:42)
[2018-12-26] MEDS: BUMETANIDE 0.5 MG TAB PO ×2 (05:42→18:11)
[2018-12-26] MEDS: CYCLOBENZAPRINE 10 MG TAB PO (05:45)
[2018-12-26 06:09] LABS: ADD MAN DIFF? NO
[2018-12-26 06:16] LABS: WHITE BLOOD COUNT 8.6 10^3/ul (4.8-10.8)
[2018-12-26 06:16] LABS: BASOPHIL # 0.1 10^3/ul (0.0-0.1); BASOPHILS % 0.8 % (0.0-2.0); EOSINOPHILS % 23.2 % (0.0-7.0); HEMATOCRIT 26.1 % (42.0-52.0); HEMOGLOBIN 7.7 g/dl (14.0-18.0); LYMPHOCYTES # 2.5 10^3/ul (0.8-2.9); LYMPHOCYTES % 28.7 % (15.0-51.0); MEAN CORPUSCULAR HEMOGLOBIN 27.4 pg (29.0-33.0); MEAN CORPUSCULAR HGB CONC 29.5 g/dl (32.0-37.0); MEAN CORPUSCULAR VOLUME 92.9 fl (82.0-101.0); MEAN PLATELET VOLUME 9.5 fl (7.4-10.4); MONOCYTE # 0.8 10^3/ul (0.3-0.9); MONOCYTES % 8.8 % (0.0-11.0); NEUTROPHIL # 3.3 10^3/ul (1.6-7.5); NEUTROPHILS % 38.3 % (39.0-77.0); PLATELET COUNT 143 10^3/UL (140-415); RED BLOOD COUNT 2.81 10^6/ul (4.70-6.10); RED CELL DISTRIBUTION WIDTH 17.9 % (11.5-14.5)
[2018-12-26 06:51] LABS: ANION GAP 3 (5-13); BLOOD UREA NITROGEN 51 mg/dl (7-20); CALCIUM 7.6 mg/dl (8.4-10.2); CARBON DIOXIDE 30 mmol/L (21-31); CHLORIDE 102 mmol/L (97-110); CREATININE 3.25 mg/dl (0.61-1.24); Estimated GFR 20 mL/min (>60); GLUCOSE 89 mg/dl (70-220); SODIUM 135 mmol/L (135-144)
[2018-12-26] MEDS: INSULIN ASPART [NOVOLOG] 3 ML PEN SC ×4 (08:00→21:00)
[2018-12-26] MEDS: COLLAGENASE 5 GM (UD JAR) TOP ×2 (08:19→21:51)
[2018-12-26] MEDS: LUBIPROSTONE 8 MCG CAPSULE PO ×2 (08:21→21:51)
[2018-12-26] MEDS: ARTIFICIAL TEARS 15 ML OPH BOTH EYES ×3 (08:21→21:54)
[2018-12-26] MEDS: BALSAM PERU/CASTOR OIL 60 GM TUBE TOP ×2 (08:21→21:55)
[2018-12-26] MEDS: DAKINS 0.0125%(1/40) 473 ML SOLUTION TP ×2 (08:21→21:54)
[2018-12-26] MEDS: METOPROLOL 50 MG TAB PO ×2 (08:23→21:53)
[2018-12-26] MEDS: METHADONE (1 MG/ML 5 ML PO UD SYG) PO ×2 (08:25→23:08)
[2018-12-26] MEDS: ALTEPLASE (CATHFLO) 2 MG INJ CATHETER (13:08)
[2018-12-26] MEDS: HEPARIN 1000 UNITS/ML 10 ML INJ CATHETER (18:00)
[2018-12-26] MEDS: EPOETIN ALFA-EPBX (ESRD) 10,000 UNIT/ML VIAL SC (18:13)
[2018-12-26] MEDS: traZODone 50 MG TAB PO (21:52)
[2018-12-27] MEDS: HYDROmorphONE 2 MG/ML SYG IV ×5 (01:54→20:04)
[2018-12-27] MEDS: LEVOTHYROXINE 100 MCG TAB PO (06:25)
[2018-12-27] MEDS: BUMETANIDE 0.5 MG TAB PO ×2 (06:25→18:22)
[2018-12-27] MEDS: INSULIN ASPART [NOVOLOG] 3 ML PEN SC ×4 (08:00→21:00)
[2018-12-27] MEDS: SOD CHLORIDE 0.9% 500 ML (08:01)
[2018-12-27] MEDS: CEFAZOLIN 1 GM/50 ML (PMX) 50 ML IVPB (08:02)
[2018-12-27] MEDS: LIDOCAINE 1%/EPI (1:100,000) (MDV) 20 ML ×2 (08:02)
[2018-12-27] MEDS: FENTAnyl 50 MCG/ML VIAL ×2 (08:03)
[2018-12-27] MEDS: PROPOFOL 20 ML (08:03)
[2018-12-27] MEDS: MIDAZOLAM 1 MG/ML 2 ML INJ (08:03)
[2018-12-27] MEDS: LUBIPROSTONE 8 MCG CAPSULE PO ×2 (09:00→22:14)
[2018-12-27] MEDS: ARTIFICIAL TEARS 15 ML OPH BOTH EYES ×3 (09:30→22:16)
[2018-12-27] MEDS: METOPROLOL 50 MG TAB PO ×2 (09:33→22:14)
[2018-12-27] MEDS: METHADONE (1 MG/ML 5 ML PO UD SYG) PO ×2 (09:34→22:13)
[2018-12-27] MEDS: COLLAGENASE 5 GM (UD JAR) TOP ×2 (09:34→22:16)
[2018-12-27] MEDS: BALSAM PERU/CASTOR OIL 60 GM TUBE TOP ×2 (09:34→22:15)
[2018-12-27] MEDS: DAKINS 0.0125%(1/40) 473 ML SOLUTION TP ×2 (09:34→22:15)
[2018-12-27] MEDS: GUAIFENESIN/DM 5ML CUP PO (09:43)
[2018-12-27] MEDS: ALBUTEROL/IPRATROPIUM (NEB) 3 ML AMP HHN (14:35)
[2018-12-27] MEDS: traZODone 50 MG TAB PO (22:14)
[2018-12-28] MEDS: ALBUTEROL/IPRATROPIUM (NEB) 3 ML AMP HHN ×3 (01:52→23:21)
[2018-12-28] MEDS: HYDROmorphONE 2 MG/ML SYG IV ×4 (02:14→16:36)
[2018-12-28] MEDS: LEVOTHYROXINE 100 MCG TAB PO (06:31)
[2018-12-28] MEDS: BUMETANIDE 0.5 MG TAB PO ×2 (06:31→18:00)
[2018-12-28] MEDS: INSULIN ASPART [NOVOLOG] 3 ML PEN SC ×4 (08:00→20:14)
[2018-12-28] MEDS: LUBIPROSTONE 8 MCG CAPSULE PO ×2 (08:13→20:01)
[2018-12-28] MEDS: METOPROLOL 50 MG TAB PO ×2 (08:14→20:00)
[2018-12-28] MEDS: METHADONE (1 MG/ML 5 ML PO UD SYG) PO ×2 (08:15→20:00)
[2018-12-28] MEDS: COLLAGENASE 5 GM (UD JAR) TOP ×2 (08:16→20:03)
[2018-12-28] MEDS: DAKINS 0.0125%(1/40) 473 ML SOLUTION TP ×2 (08:16→20:03)
[2018-12-28] MEDS: ARTIFICIAL TEARS 15 ML OPH BOTH EYES ×3 (08:16→22:37)
[2018-12-28] MEDS: BALSAM PERU/CASTOR OIL 60 GM TUBE TOP ×2 (08:16→20:02)
[2018-12-28] MEDS ORDERED: OXYCODONE/ACETAMINOPHEN (10/325) TAB PO (19:00)
[2018-12-28] MEDS: traZODone 50 MG TAB PO (20:00)
[2018-12-29] MEDS: HYDROmorphONE 2 MG/ML SYG IV ×5 (02:55→20:39)
[2018-12-29] MEDS: GUAIFENESIN/DM 5ML CUP PO (02:59)
[2018-12-29] MEDS: BUMETANIDE 0.5 MG TAB PO ×2 (06:09→17:23)
[2018-12-29] MEDS: LEVOTHYROXINE 100 MCG TAB PO (06:09)
[2018-12-29] MEDS: INSULIN ASPART [NOVOLOG] 3 ML PEN SC ×4 (08:00→20:27)
[2018-12-29] MEDS: METOPROLOL 50 MG TAB PO ×2 (09:00→20:40)
[2018-12-29] MEDS: LUBIPROSTONE 8 MCG CAPSULE PO ×2 (09:27→20:25)
[2018-12-29] MEDS: DAKINS 0.0125%(1/40) 473 ML SOLUTION TP ×2 (09:28→20:23)
[2018-12-29] MEDS: METHADONE (1 MG/ML 5 ML PO UD SYG) PO ×2 (09:28→20:25)
[2018-12-29] MEDS: ARTIFICIAL TEARS 15 ML OPH BOTH EYES ×3 (09:29→20:24)
[2018-12-29] MEDS: BALSAM PERU/CASTOR OIL 60 GM TUBE TOP ×2 (09:29→20:24)
[2018-12-29] MEDS: COLLAGENASE 5 GM (UD JAR) TOP ×2 (09:29→20:23)
[2018-12-29] MEDS: ALBUMIN HUMAN 25% 100 ML IV (09:47)
[2018-12-29] MEDS: ALBUTEROL/IPRATROPIUM (NEB) 3 ML AMP HHN (10:06)
[2018-12-29] MEDS: HEPARIN 1000 UNITS/ML 10 ML INJ CATHETER (11:54)
[2018-12-29] MEDS: EPOETIN ALFA-EPBX (ESRD) 10,000 UNIT/ML VIAL SC (17:23)
[2018-12-29] MEDS: traZODone 50 MG TAB PO (20:24)
[2018-12-30] MEDS: HYDROmorphONE 2 MG/ML SYG IV ×4 (00:46→15:03)
[2018-12-30] MEDS: LEVOTHYROXINE 100 MCG TAB PO (06:11)
[2018-12-30] MEDS: BUMETANIDE 0.5 MG TAB PO ×2 (06:11→18:28)
[2018-12-30] MEDS: INSULIN ASPART [NOVOLOG] 3 ML PEN SC ×4 (08:00→20:28)
[2018-12-30] MEDS: ARTIFICIAL TEARS 15 ML OPH BOTH EYES ×3 (09:00→20:30)
[2018-12-30] MEDS: LUBIPROSTONE 8 MCG CAPSULE PO ×2 (09:41→20:29)
[2018-12-30] MEDS: METOPROLOL 50 MG TAB PO ×2 (09:42→20:30)
[2018-12-30] MEDS: BALSAM PERU/CASTOR OIL 60 GM TUBE TOP ×2 (09:43→20:32)
[2018-12-30] MEDS: METHADONE (1 MG/ML 5 ML PO UD SYG) PO ×2 (09:43→20:31)
[2018-12-30] MEDS: COLLAGENASE 5 GM (UD JAR) TOP ×2 (09:43→20:31)
[2018-12-30] MEDS: DAKINS 0.0125%(1/40) 473 ML SOLUTION TP ×2 (09:44→20:32)
[2018-12-30] MEDS: CYCLOBENZAPRINE 10 MG TAB PO (13:50)
[2018-12-30] MEDS: ONDANSETRON 4 MG INJ IV (18:28)
[2018-12-30] MEDS: traZODone 50 MG TAB PO (20:29)
== END 2018-12-30 20:50 | DRG 853 ==
LOC: 2NE 09-22 02:00 → TEL 09-25 15:57 → ICU 11-26 06:00 → TEL 11-29 06:13 → 6WM 12-15 18:58 → 5EC 12-25 18:34 → E/R 00:52 → 6WM 09-04 23:22 → ICU 12-06 22:18 → 5EC 09-30 23:45 → ICU 01:02 → 6WM 18:38
PROC: 02PA33Z Removal of Infusion Device from Heart, Percutaneous Approach (ICD-10-PCS; 2018-11-05 12:30)
PROC: 02H633Z Insertion of Infusion Device into Right Atrium, Percutaneous Approach (ICD-10-PCS; 2018-11-05 12:30)
PROC: 0JH63XZ Insertion of Tunneled Vascular Access Device into Chest Subcutaneous Tissue and Fascia, Percutaneous Approach (ICD-10-PCS; 2018-11-05 12:30)
PROC: B214YZZ Fluoroscopy of Right Heart using Other Contrast (ICD-10-PCS; 2018-11-05 12:30)
PROC: 0KBP0ZZ Excision of Left Hip Muscle, Open Approach (ICD-10-PCS; principal; 2018-11-05 13:18)
PROC: 0KBN0ZZ Excision of Right Hip Muscle, Open Approach (ICD-10-PCS; 2018-11-05 13:18)
PROC: 0KBP0ZZ Excision of Left Hip Muscle, Open Approach (ICD-10-PCS; 2018-11-05 13:18)
PROC: 0KBN0ZZ Excision of Right Hip Muscle, Open Approach (ICD-10-PCS; 2018-11-05 13:18)
PROC: 0JBP0ZZ Excision of Left Lower Leg Subcutaneous Tissue and Fascia, Open Approach (ICD-10-PCS; 2018-11-05 13:18)
PROC: 0JBN0ZZ Excision of Right Lower Leg Subcutaneous Tissue and Fascia, Open Approach (ICD-10-PCS; 2018-11-05 13:18)
PROC: 02HV33Z Insertion of Infusion Device into Superior Vena Cava, Percutaneous Approach (ICD-10-PCS; 2018-11-05 13:18)
PROC: 0W993ZZ Drainage of Right Pleural Cavity, Percutaneous Approach (ICD-10-PCS; 2018-11-05 13:18)
PROC: 0W993ZZ Drainage of Right Pleural Cavity, Percutaneous Approach (ICD-10-PCS; 2018-11-05 13:18)
PROC: 02H633Z Insertion of Infusion Device into Right Atrium, Percutaneous Approach (ICD-10-PCS; 2018-11-05 13:18)
PROC: 5A1D70Z Performance of Urinary Filtration, Intermittent, Less than 6 Hours Per Day (ICD-10-PCS; 2018-11-05 13:18)
PROC: 0W9B3ZZ Drainage of Left Pleural Cavity, Percutaneous Approach (ICD-10-PCS; 2018-11-05 13:18)
PROC: 0W9930Z Drainage of Right Pleural Cavity with Drainage Device, Percutaneous Approach (ICD-10-PCS; 2018-11-05 13:18)
PROC: 0BH17EZ Insertion of Endotracheal Airway into Trachea, Via Natural or Artificial Opening (ICD-10-PCS; 2018-11-05 13:18)
PROC: 5A1955Z Respiratory Ventilation, Greater than 96 Consecutive Hours (ICD-10-PCS; 2018-11-05 13:18)
PROC: 0W9B30Z Drainage of Left Pleural Cavity with Drainage Device, Percutaneous Approach (ICD-10-PCS; 2018-11-05 13:18)
PROC: 0BPQ30Z Removal of Drainage Device from Pleura, Percutaneous Approach (ICD-10-PCS; 2018-11-05 13:18)
PROC: 0W9930Z Drainage of Right Pleural Cavity with Drainage Device, Percutaneous Approach (ICD-10-PCS; 2018-11-05 13:18)
PROC: 0W9B30Z Drainage of Left Pleural Cavity with Drainage Device, Percutaneous Approach (ICD-10-PCS; 2018-11-05 13:18)
PROC: 30233N1 Transfusion of Nonautologous Red Blood Cells into Peripheral Vein, Percutaneous Approach (ICD-10-PCS; 2018-11-05 13:18)
PROC: 30233R1 Transfusion of Nonautologous Platelets into Peripheral Vein, Percutaneous Approach (ICD-10-PCS; 2018-11-05 13:18)
PROC: 0HBRXZZ Excision of Toe Nail, External Approach (ICD-10-PCS; 2018-11-05 13:18)
DX: B37.7 Candidal sepsis (principal); L89.224 Pressure ulcer of left hip, stage 4; L89.154 Pressure ulcer of sacral region, stage 4; N17.0 Acute kidney failure with tubular necrosis; J96.02 Acute respiratory failure with hypercapnia; J96.01 Acute respiratory failure with hypoxia; G82.52 Quadriplegia, C1-C4 incomplete; N18.6 End stage renal disease; B49 Unspecified mycosis; J90 Pleural effusion, not elsewhere classified; E87.2 Acidosis; I96 Gangrene, not elsewhere classified; N39.0 Urinary tract infection, site not specified; I13.0 Hypertensive heart and chronic kidney disease with heart failure and stage 1 through stage 4 chronic kidney disease, or unspecified chronic kidney disease; R65.20 Severe sepsis without septic shock; B35.3 Tinea pedis; B35.1 Tinea unguium; B18.2 Chronic viral hepatitis C; B95.2 Enterococcus as the cause of diseases classified elsewhere; B96.89 Other specified bacterial agents as the cause of diseases classified elsewhere; D63.1 Anemia in chronic kidney disease; D69.6 Thrombocytopenia, unspecified; D50.9 Iron deficiency anemia, unspecified; E11.22 Type 2 diabetes mellitus with diabetic chronic kidney disease; E87.6 Hypokalemia; E88.09 Other disorders of plasma-protein metabolism, not elsewhere classified; G62.9 Polyneuropathy, unspecified; G89.4 Chronic pain syndrome; I50.9 Heart failure, unspecified; J11.1 Influenza due to unidentified influenza virus with other respiratory manifestations; J20.9 Acute bronchitis, unspecified; L89.629 Pressure ulcer of left heel, unspecified stage; L89.619 Pressure ulcer of right heel, unspecified stage; L89.899 Pressure ulcer of other site, unspecified stage; L89.892 Pressure ulcer of other site, stage 2; L89.519 Pressure ulcer of right ankle, unspecified stage; L89.529 Pressure ulcer of left ankle, unspecified stage; L89.522 Pressure ulcer of left ankle, stage 2; M24.562 Contracture, left knee; M24.561 Contracture, right knee; N18.3 Chronic kidney disease, stage 3 (moderate); N31.9 Neuromuscular dysfunction of bladder, unspecified; R00.0 Tachycardia, unspecified; R60.1 Generalized edema; Z16.21 Resistance to vancomycin; Z66 Do not resuscitate; Z99.2 Dependence on renal dialysis; Z87.01 Personal history of pneumonia (recurrent); Z87.891 Personal history of nicotine dependence; Z98.1 Arthrodesis status; Z79.4 Long term (current) use of insulin
CPT/HCPCS: 31500; 36430; 36556; 36558; 36569; 36589; 36600; 71045; 72125; 72128; 72131; 73030; 73030-RT; 73630; 73630-LT; 74176; 75989; 76705; 76937; 76942; 80048; 80053; 80202; 81001; 82270; 82533; 82803; 82962; 83036; 83605; 83615; 83735; 83880; 84100; 84145; 84155; 84157; 84439; 84443; 84481; 85014; 85018; 85025; 85610; 85651; 85730; 86644; 86703; 86704; 86709; 86803; 86850; 86900; 86901; 86920; 87040-91; 87045; 87070; 87075; 87081; 87086; 87102; 87116; 87340; 87400; 88104; 88107; 88300; 88305; 89051; 89220; 90935; 92526; 92610; 93005; 93306; 93922; 93970; 93971; 94002; 94003; 94640; 94660; 94664; 94667; 94668; 94770; 97163; 97164; 97167; 99285-25